=== PATIENT | male | born 1965 | race Caucasian/White ===

== ENCOUNTER 2016-07-07 16:08 | Emergency (ER) | payer MEDICAID, OTHER, SELFPAY ==
--- NOTE | 2016-07-07 16:22 | EDM.PDOC ---
ED HPI DIABETIC EMERGENCY - General Chief Complaint: Diabetic Complaint Stated Complaint: PRESSURE ON HIS HEAD Time Seen by Provider: 07/07/16 16:25 Source of Information: Reports: Patient History Limitations: Reports: No limitations - History of Present Illness INITIAL COMMENTS - FREE TEXT/NARRATIVE: History of present illness: [50-year-old male comes in with complaints of running out of his insulin and verbalizing more concern is his complaint of headache he indicates is June and at some time] Review of systems: As per history of present illness and below otherwise all systems reviewed and negative. Past medical history: As per history of present illness and as reviewed below otherwise noncontributory. Surgical history: As per history of present illness and as reviewed below otherwise noncontributory. Social history: No reported history of drug or alcohol abuse. Family history: As per history of present illness and as reviewed below otherwise noncontributory. Physical exam: HEENT: Atraumatic, normocephalic, pupils reactive, negative for conjunctival pallor or scleral icterus, mucous membranes moist, throat clear, neck supple, nontender, trachea midline. Lungs: Clear to auscultation, breath sounds equal bilaterally, chest nontender. Heart: S1S2, regular, negative for clicks, rubs, or JVD. Abdomen: Soft, nondistended, nontender. Negative for masses or hepatosplenomegaly. Negative for costovertebral tenderness. Pelvis: Stable nontender. Genitourinary: Deferred. Rectal: Deferred. Extremities: Atraumatic, negative for cords or calf pain. Neurovascular unremarkable. Neuro: Awake, alert, oriented. Cranial nerves II through XII unremarkable. Cerebellum unremarkable. Motor and sensory unremarkable throughout. Exam nonfocal. Global assessment is benign save subjective complaint of headache. Blood sugars 225 per lab. Pt. has an ambiguous history of dosing of insulin he takes, he is unable to give us an # that we can treat without knowing that he' ll be eating later. Patient can get insulin in the morning by his PCP and has been instructed to do so. He indicates he does have his long-acting insulin he can take to keep his blood sugar out of dangerous levels. Furthermore patient was instructed on need to followup with neurologist and primary care for better management of chronic pain. Diagnostics: [CBC, CMP] Therapeutics: [Ativan, Toradol, morphine, Zofran] Impression: [Headache, hyperglycemia] Plan: [Rx for headache followup with PCP tomorrow] Definitive disposition and diagnosis as appropriate pending reevaluation and review of above. - Related Data Allergies/ADRs: Allergies Allergy/AdvReac Type Severity Reaction Status Date / Time No Known Allergies Allergy Verified 07/07/16 16:13 Home Meds: Home Meds Diclofenac Sodium [Voltaren] 75 mg PO BIDM 06/14/13 [History] Carisoprodol [Soma] 250 mg PO TID 09/06/13 [History] Gabapentin [Neurontin] 300 mg PO TID 09/06/13 [History] Insulin Npl/Insulin Lispro [HumaLOG Mix 75-25 Vial] 07/07/16 [History] Past Medical History - Past Health History Medical/Surgical History: Denies Medical/Surgical History HEENT History: Reports: None Respiratory History: Reports: Asthma Gastrointestinal History: Reports: None Genitourinary History: Reports: None Musculoskeletal History: Reports: Back pain, chronic Neurological History: Reports: Neuropathy, diabetic Psychiatric History: Reports: Depression Endocrine/Metabolic History: Reports: Diabetes, type I Hematologic History: Reports: None Immunologic History: Reports: None Oncologic (Cancer) History: Reports: None Dermatologic History: Reports: None - Infectious Disease History Infectious Disease History: Reports: Chicken pox - Past Surgical History Head Surgeries/Procedures: Reports: None GI Surgical History: Reports: Cholecystectomy Social & Family History - Family History Family Medical History: Noncontributory - Tobacco Use Smoking Status *Q: Never Smoker Second Hand Smoke Exposure: No - Caffeine Use Caffeine Use: Reports: Soda - Alcohol Use Days Per Week of Alcohol Use: 0 - Recreational Drug Use Recreational Drug Use: No ED ROS GENERAL - Review of Systems Review Of Systems: See Below (See history of present illness) ED EXAM GENERAL NO PERIP PULSE - Physical Exam Exam: See Below (History of present illness) Course - Vital Signs Last Recorded V/S: Last Vital Signs Temp 36.5 C 07/07/16 16:15 Pulse 83 07/07/16 17:55 Resp 20 07/07/16 17:55 BP 86/53 L 07/07/16 17:55 Pulse Ox 96 07/07/16 17:55 - Orders/Labs/Meds Labs: Laboratory Tests 07/07/16 07/07/16 Range/Units 16:29 16:29 WBC 5.61 (4.0-11.0) K/uL RBC 4.89 (4.50-5.90) M/uL Hgb 15.7 (13.0-17.0) g/dL Hct 43.6 (38.0-50.0) % MCV 89.2 (80.0-98.0) fL MCH 32.1 H (27.0-32.0) pg MCHC 36.0 (31.0-37.0) g/dL RDW Std Deviation 40.1 (28.0-62.0) fl RDW Coeff of Charles 13 (11.0-15.0) % Plt Count 207 (150-400) K/uL MPV 10.40 (7.40-12.00) fL Neut % (Auto) 64.9 (48.0-80.0) % Lymph % (Auto) 25.1 (16.0-40.0) % [place] % (Auto) 8.6 (0.0-15.0) % Eos % (Auto) 0.9 (0.0-7.0) % Baso % (Auto) 0.5 (0.0-1.5) % Neut # (Auto) 3.6 (1.4-5.7) K/uL Lymph # (Auto) 1.4 (0.6-2.4) K/uL [place] # (Auto) 0.5 (0.0-0.8) K/uL Eos # (Auto) 0.1 (0.0-0.7) K/uL Baso # (Auto) 0.0 (0.0-0.1) K/uL Nucleated RBC % 0.0 /100WBC Nucleated RBCs # 0 K/uL Sodium 142 (136-146) mmol/L Potassium 3.7 (3.5-5.1) mmol/L Chloride 107 (98-110) mmol/L Carbon Dioxide 24 (21-31) mmol/L BUN 13 (6.0-23.0) mg/dL Creatinine 1.0 (0.6-1.5) mg/dL Est Cr Clr Drug Dosing 101.65 mL/min Estimated GFR (MDRD) > 60.0 ml/min Glucose 225 H (60-110) mg/dL Calcium 9.0 (8.8-10.8) mg/dL Total Bilirubin 1.9 H (0.1-1.5) mg/dL AST 21 (5-40) IU/L ALT 21 (8-54) IU/L Alkaline Phosphatase 69 (40-150) Total Protein 6.4 (6.0-8.0) g/dL Albumin 4.1 (3.5-5.0) g/dL Globulin 2.3 (2.0-3.5) g/dL Albumin/Globulin Ratio 1.8 (1.3-2.8) Meds: Medications Discontinued Medications Generic Name Dose Route Start Last Admin Trade Name Freq PRN Reason Stop Dose Admin Sodium Chloride 1,000 mls @ 999 mls/hr 07/07/16 16:23 07/07/16 16:34 Normal Saline IV 07/07/16 17:23 999 mls/hr STAT ONE Administration Ketorolac Tromethamine 30 mg 07/07/16 16:23 07/07/16 16:35 Toradol IVPUSH 07/07/16 16:24 30 mg ONETIME ONE Administration Lorazepam 1 mg 07/07/16 18:39 07/07/16 18:47 Ativan IVPUSH 07/07/16 18:40 2 mg ONETIME ONE Administration Morphine Sulfate 2 mg 07/07/16 18:39 07/07/16 18:49 Morphine IVPUSH 07/07/16 18:40 2 mg ONETIME ONE Administration Ondansetron HCl 8 mg 07/07/16 16:23 07/07/16 16:35 Zofran IVPUSH 07/07/16 16:24 8 mg ONETIME ONE Administration Ondansetron HCl 8 mg 07/07/16 18:39 07/07/16 18:47 Zofran IVPUSH 07/07/16 18:40 8 mg ONETIME ONE Administration Departure - Departure Time of Disposition: 19:09 Disposition: Home, Self-Care 01 Condition: good Clinical Impression: Headache Qualifiers: Headache type: new daily persistent Qualified Code(s): G44.52 - New daily persistent headache (NDPH) Forms: ED Department Discharge Additional Instructions: The following information is given to patients seen in the emergency department who are being discharged to home. This information is to outline your options for follow-up care. We provide all patients seen in our emergency department with a follow-up referral. The need for follow-up, as well as the timing and circumstances, are variable depending upon the specifics of your emergency department visit. If you don't have a primary care physician on staff, we will provide you with a referral. We always advise you to contact your personal physician following an emergency department visit to inform them of the circumstance of the visit and for follow-up with them and/or the need for any referrals to a consulting specialist. The emergency department will also refer you to a specialist when appropriate. This referral assures that you have the opportunity for follow-up care with a specialist. All of these measure are taken in an effort to provide you with optimal care, which includes your follow-up. Under all circumstances we always encourage you to contact your private physician who remains a resource for coordinating your care. When calling for follow-up care, please make the office aware that this follow-up is from your recent emergency room visit. If for any reason you are refused follow-up, please contact the [facility] Emergency Department at and asked to speak to the emergency department charge nurse. You have been given some medication for pain for your headache through the [employer] meds machine Please up tomorrow with your PCP and the pharmacy to get refills for insulin and have your dosage addressed with him so that you don't continuously run out Please followup with your neurologist as was her PCP for better pain management of your chronic headaches It might be to your benefit to be evaluated for migraines Return to ED as needed as discussed
[2016-07-07] MEDS ORDERED: Ketorolac 30 MG/ML SDV IVPUSH ONE (16:23)
[2016-07-07] MEDS ORDERED: Ondansetron 4 MG/2 ML SDV IVPUSH ONE ×2 (16:23→18:39)
[2016-07-07] MEDS ORDERED: Sodium Chloride 0.9% 1,000 ML IV ONE (16:23)
[2016-07-07 16:58] LABS: CHLORIDE,CL 107 mmol/L (98-110); SODIUM,NA 142 mmol/L (136-146)
[2016-07-07] MEDS ORDERED: Morphine 2 MG/ML Syringe IVPUSH ONE (18:39)
[2016-07-07] MEDS ORDERED: LORazepam 2 MG/ML MDV IVPUSH ONE (18:39)
[2016-07-07 20:05] VITALS: BP 95/57
== END 2016-07-07 19:38 | disposition home or self-care (01) ==
LOC: MW.ED 16:08
DX: G44.52 New daily persistent headache (NDPH) (principal); E10.65 Type 1 diabetes mellitus with hyperglycemia; J45.909 Unspecified asthma, uncomplicated; F32.9 Major depressive disorder, single episode, unspecified; E10.40 Type 1 diabetes mellitus with diabetic neuropathy, unspecified; Z90.49 Acquired absence of other specified parts of digestive tract; Z79.4 Long term (current) use of insulin; Z79.899 Other long term (current) drug therapy
CPT/HCPCS: 36415; 80053; 85025; 96361; 96374; 96375; 96376; 99284; J1885; J2060; J2270; J2405; J7040; 99283

== ENCOUNTER 2016-07-08 12:47 | Emergency (ER) | payer MEDICAID, OTHER ==
[2016-07-08] MEDS ORDERED: Sodium Chloride 0.9% 1,000 ML IV ONE (12:54)
[2016-07-08] MEDS ORDERED: Insulin Regular, Human 100 Units/ML 10 ML Vial IVPUSH ONE ×2 (13:06→13:44)
--- NOTE | 2016-07-08 13:24 | EDM.PDOC ---
ED HPI DIABETIC EMERGENCY - General Chief Complaint: Diabetic Complaint Stated Complaint: DIABETIC SHOCK Time Seen by Provider: 07/08/16 13:18 Source of Information: Reports: Patient, Significant Other. Denies: Family History Limitations: Reports: No limitations - History of Present Illness INITIAL COMMENTS - FREE TEXT/NARRATIVE: History of present illness: [50-year-old male returns to ER this morning after being seen last night. Patient told significant other that he was having I diabetic crisis patient's blood sugar went discharge last night was 225 per lab and patient agreed to hematology supervisor the new bottle of insulin this morning now patient is indicating that he was too ill this morning to go hematology supervisor any insulin. Patient indicates he just has the headache like last night and would like more pain medicine.] Review of systems: As per history of present illness and below otherwise all systems reviewed and negative. Past medical history: As per history of present illness and as reviewed below otherwise noncontributory. Surgical history: As per history of present illness and as reviewed below otherwise noncontributory. Social history: No reported history of drug or alcohol abuse. Family history: As per history of present illness and as reviewed below otherwise noncontributory. Physical exam: HEENT: Atraumatic, normocephalic, pupils reactive, negative for conjunctival pallor or scleral icterus, mucous membranes moist, throat clear, neck supple, nontender, trachea midline. Lungs: Clear to auscultation, breath sounds equal bilaterally, chest nontender. Heart: S1S2, regular, negative for clicks, rubs, or JVD. Abdomen: Soft, nondistended, nontender. Negative for masses or hepatosplenomegaly. Negative for costovertebral tenderness. Pelvis: Stable nontender. Genitourinary: Deferred. Rectal: Deferred. Extremities: Atraumatic, negative for cords or calf pain. Neurovascular unremarkable. Neuro: Awake, alert, oriented. Cranial nerves II through XII unremarkable. Cerebellum unremarkable. Motor and sensory unremarkable throughout. Exam nonfocal. Patient's global assessment is benign save as noted in the history of present illness. Fingerstick shows blood sugar at mid 400 range with IV insulin ordered , subsequent lab showed blood sugar to be in the 600 range with another 10 units of IV insulin ordered. Diagnostics: [CBC, CMP, hemoglobin A1c, EtOH, drug screen, EKG,] Therapeutics: [IV 10 units of insulin IV push] Impression: [NSTEMI] Plan: [Transfer] Definitive disposition and diagnosis as appropriate pending reevaluation and review of above. - Related Data Allergies/ADRs: Allergies Allergy/AdvReac Type Severity Reaction Status Date / Time No Known Allergies Allergy Verified 07/07/16 16:13 Home Meds: Home Meds Diclofenac Sodium [Voltaren] 75 mg PO BIDM 06/14/13 [History] Carisoprodol [Soma] 250 mg PO TID 09/06/13 [History] Gabapentin [Neurontin] 300 mg PO TID 09/06/13 [History] Insulin Npl/Insulin Lispro [HumaLOG Mix 75-25 Vial] 07/07/16 [History] Past Medical History - Past Health History Medical/Surgical History: Denies Medical/Surgical History HEENT History: Reports: None Respiratory History: Reports: Asthma Gastrointestinal History: Reports: None Genitourinary History: Reports: None Musculoskeletal History: Reports: Back pain, chronic Neurological History: Reports: Neuropathy, diabetic Psychiatric History: Reports: Depression Endocrine/Metabolic History: Reports: Diabetes, type I Hematologic History: Reports: None Immunologic History: Reports: None Oncologic (Cancer) History: Reports: None Dermatologic History: Reports: None - Infectious Disease History Infectious Disease History: Reports: Chicken pox - Past Surgical History Head Surgeries/Procedures: Reports: None GI Surgical History: Reports: Cholecystectomy Social & Family History - Family History Family Medical History: Noncontributory - Tobacco Use Smoking Status *Q: Never Smoker Second Hand Smoke Exposure: No - Caffeine Use Caffeine Use: Reports: Soda - Alcohol Use Days Per Week of Alcohol Use: 0 - Recreational Drug Use Recreational Drug Use: No ED ROS GENERAL - Review of Systems Review Of Systems: See Below (See history of present illness) ED EXAM GENERAL NO PERIP PULSE - Physical Exam Exam: See Below (See history of present illness) Course - Vital Signs Last Recorded V/S: Last Vital Signs Temp 36.6 C 07/08/16 12:52 Pulse 111 H 07/08/16 12:52 Resp 18 07/08/16 12:52 BP 126/77 07/08/16 12:52 Pulse Ox 98 07/08/16 12:52 - Orders/Labs/Meds Orders: Active Orders 24 hr Category Date Time Status EKG 12 Lead [EKG Documentation Completion] [RC] STAT Care 07/08/16 13:01 Active DRUG SCREEN, URINE [URCHEM] Stat Lab 07/08/16 12:53 Ordered FREE T3 [REF] Stat Lab 07/08/16 13:00 Received GLYCOSYLATED HEMOGLOBIN,HGBA1C [CHEM] Stat Lab 07/08/16 13:00 Received UA W/MICROSCOPIC [URIN] Stat Lab 07/08/16 12:53 Ordered Sodium Chloride 0.9% [Normal Saline] 1,000 ml Med 07/08/16 12:54 Active IV STAT Medication Orders Sodium Chloride (Normal Saline) 1,000 mls @ 999 mls/hr IV STAT ONE Stop: 07/08/16 13:54 Last Admin: 07/08/16 12:58 Dose: 999 mls/hr Labs: Laboratory Tests 07/08/16 07/08/16 07/08/16 Range/Units 13:00 13:00 13:00 WBC 7.43 (4.0-11.0) K/uL RBC 5.10 (4.50-5.90) M/uL Hgb 16.1 (13.0-17.0) g/dL Hct 46.5 (38.0-50.0) % MCV 91.2 (80.0-98.0) fL MCH 31.6 (27.0-32.0) pg MCHC 34.6 (31.0-37.0) g/dL RDW Std Deviation 41.2 (28.0-62.0) fl RDW Coeff of Charles 12 (11.0-15.0) % Plt Count 209 (150-400) K/uL MPV 10.60 (7.40-12.00) fL Neut % (Auto) 77.8 (48.0-80.0) % Lymph % (Auto) 15.9 L (16.0-40.0) % [place] % (Auto) 5.8 (0.0-15.0) % Eos % (Auto) 0.1 (0.0-7.0) % Baso % (Auto) 0.4 (0.0-1.5) % Neut # (Auto) 5.8 H (1.4-5.7) K/uL Lymph # (Auto) 1.2 (0.6-2.4) K/uL [place] # (Auto) 0.4 (0.0-0.8) K/uL Eos # (Auto) 0.0 (0.0-0.7) K/uL Baso # (Auto) 0.0 (0.0-0.1) K/uL Nucleated RBC % 0.0 /100WBC Nucleated RBCs # 0 K/uL Sodium 135 L (136-146) mmol/L Potassium 5.0 (3.5-5.1) mmol/L Chloride 101 (98-110) mmol/L Carbon Dioxide 10 L (21-31) mmol/L BUN 25 H (6.0-23.0) mg/dL Creatinine 1.7 H (0.6-1.5) mg/dL Est Cr Clr Drug Dosing TNP Estimated GFR (MDRD) 42.7 ml/min Glucose 629 H* (60-110) mg/dL Calcium 9.1 (8.8-10.8) mg/dL Total Bilirubin 1.6 H (0.1-1.5) mg/dL AST 48 H (5-40) IU/L ALT 58 H (8-54) IU/L Alkaline Phosphatase 113 (40-150) Troponin I 0.57 H* (0.0-0.29) NG/ML Total Protein 7.0 (6.0-8.0) g/dL Albumin 4.3 (3.5-5.0) g/dL Globulin 2.7 (2.0-3.5) g/dL Albumin/Globulin Ratio 1.6 (1.3-2.8) Ethyl Alcohol < 10.0 mg/dL Meds: Medications Generic Name Dose Route Start Last Admin Trade Name Astrid PRN Reason Stop Dose Admin Sodium Chloride 1,000 mls @ 999 mls/hr 07/08/16 12:54 07/08/16 12:58 Normal Saline IV 07/08/16 13:54 999 mls/hr STAT ONE Administration Discontinued Medications Generic Name Dose Route Start Last Admin Trade Name Freq PRN Reason Stop Dose Admin Aspirin 324 mg 07/08/16 13:43 Aspirin PO 07/08/16 13:44 ONETIME ONE Insulin Human Regular 10 unit 07/08/16 13:06 07/08/16 13:30 Novolin R IVPUSH 07/08/16 13:07 10 units ONETIME ONE Administration Protocol Insulin Human Regular 10 unit 07/08/16 13:44 Novolin R IVPUSH 07/08/16 13:45 ONETIME ONE Morphine Sulfate 2 mg 07/08/16 13:39 Morphine IVPUSH 07/08/16 13:40 ONETIME ONE Nitroglycerin 1 gm 07/08/16 13:41 Nitro-Bid 2% TOP 07/08/16 13:42 ONETIME ONE Ondansetron HCl 8 mg 07/08/16 13:39 Zofran IVPUSH 07/08/16 13:40 ONETIME ONE Departure - Departure Time of Disposition: 13:51 Disposition: DC/Tfer to Acute Hospital 02 Condition: good Clinical Impression: NSTEMI, initial episode of care Forms: ED Department Discharge - My Orders Last 24 Hours: My Active Orders 07/08/16 12:53 DRUG SCREEN, URINE [URCHEM] Stat UA W/MICROSCOPIC [URIN] Stat 07/08/16 12:54 Sodium Chloride 0.9% [Normal Saline] 1,000 ml IV STAT 07/08/16 13:00 FREE T3 [REF] Stat GLYCOSYLATED HEMOGLOBIN,HGBA1C [CHEM] Stat 07/08/16 13:01 EKG 12 Lead [EKG Documentation Completion] [RC] STAT - Assessment/Plan Last 24 Hours: My Active Orders 07/08/16 12:53 DRUG SCREEN, URINE [URCHEM] Stat UA W/MICROSCOPIC [URIN] Stat 07/08/16 12:54 Sodium Chloride 0.9% [Normal Saline] 1,000 ml IV STAT 07/08/16 13:00 FREE T3 [REF] Stat GLYCOSYLATED HEMOGLOBIN,HGBA1C [CHEM] Stat 07/08/16 13:01 EKG 12 Lead [EKG Documentation Completion] [RC] STAT
[2016-07-08 13:32] LABS: CHLORIDE,CL 101 mmol/L (98-110); SODIUM,NA 135 mmol/L (136-146)
[2016-07-08] MEDS ORDERED: Morphine 2 MG/ML Syringe IVPUSH ONE (13:39)
[2016-07-08] MEDS ORDERED: Ondansetron 4 MG/2 ML SDV IVPUSH ONE (13:39)
[2016-07-08] MEDS ORDERED: Nitroglycerin 2% Oint 1 GM UD Packet TOP ONE (13:41)
[2016-07-08] MEDS ORDERED: Aspirin 81 MG Tab.Chew PO ONE (13:43)
[2016-07-08] MEDS ORDERED: Acetaminophen 500 MG Tab PO ONE (15:11)
[2016-07-08 19:11] VITALS: BP 114/59
== END 2016-07-08 15:21 ==
LOC: MW.ED 12:47
DX: I21.4 Non-ST elevation (NSTEMI) myocardial infarction (principal); J45.909 Unspecified asthma, uncomplicated; F32.9 Major depressive disorder, single episode, unspecified; E10.40 Type 1 diabetes mellitus with diabetic neuropathy, unspecified; Z79.4 Long term (current) use of insulin; Z90.49 Acquired absence of other specified parts of digestive tract; Z79.899 Other long term (current) drug therapy
CPT/HCPCS: 36415; 80053; 80305; 81001; 82962; 83036; 84481; 84484; 85025; 93005; 96361; 96374; 96375; 99285; A9270; G0480; J2270; J2405; J7040; 99284; J1815-GY

== ENCOUNTER 2016-07-14 17:40 | Observation (INO) | payer MEDICAID, OTHER ==
[2016-07-14] MEDS: Nitroglycerin 0.4 MG Tab.SL SL PRN ×3 (17:40→17:50)
[2016-07-14] MEDS ORDERED: Sodium Chloride 0.9% 10 ML Syringe FLUSH PRN (17:41)
[2016-07-14] MEDS ORDERED: Sodium Chloride 0.9% 2.5 ML Syringe FLUSH PRN (17:41)
--- NOTE | 2016-07-14 17:50 | EDM.PDOC ---
ED HPI GENERAL MEDICAL PROBLEM - General Chief Complaint: Chest Pain Stated Complaint: PT HAS CHEST PAINS Time Seen by Provider: 07/14/16 17:40 - History of Present Illness INITIAL COMMENTS - FREE TEXT/NARRATIVE: HISTORY AND PHYSICAL: History of present illness: Patient is a 50-year-old male with a history of diabetes who presents with left- sided chest pain that has been on-and-off all day and became more intense and constant about one hour prior to ER presentation. The patient has a significant past medical history of coming to the ER in July 07 for running out of his insulin and high glucose and then returning the following day on July 08 for elevated blood sugar of 629. On that presentation he had some chest discomfort but it was not severe and it was noted that he had a positive troponin of 0.57 and a left bundle branch block.. On that visit he was transferred to [facility] as a non-STEMI AR. According to the patient he did undergo heart catheter which showed a 50-60% blockage of one of the vessels but they did not do angioplasty or stents. The patient states he had some bleeding complication to the right groin after the catheter but otherwise has been doing well since that visit. He states he had a number of his medications changed and some new with added since that visit to [place]. Patient said he had a normal day yesterday and slept fine and woke up this morning and didn't have the chest pain but then started having it on and off throughout the day with each episode lasting only a few minutes and then going away. The patient does not have sublingual nitroglycerin to use at home. The patient states that he was just sitting resting when the pain become more intense and it is localized to the left side of the chest without radiation but he does have shortness of breath and increased pain with deep breaths. He has had no recent pulmonary issues fevers chills and he has no abdominal complaints nausea or vomiting. Patient denies any radiation of the pain and on my evaluation initially he rated the pain as a 10 over 10. He states he has a history of a left bundle branch block. Patient took no medications prior to coming here for the pain only to his regular medication today which included a 325 mg aspirin that he took this morning. He follows with Dr. Diez at [facility] Review of systems: As per history of present illness and below otherwise all systems reviewed and negative. Past medical history: As per history of present illness and as reviewed below otherwise noncontributory. Surgical history: As per history of present illness and as reviewed below otherwise noncontributory. Social history: No reported history of drug or alcohol abuse. Family history: As per history of present illness and as reviewed below otherwise noncontributory. Physical exam: General: Well-developed well-nourished man who is nontoxic and looks distressed and anxious in the room. Vital signs been noted by me. He is diaphoretic. HEENT: Atraumatic, normocephalic, pupils reactive, negative for conjunctival pallor or scleral icterus, mucous membranes moist, throat clear, neck supple, nontender, trachea midline. Lungs: Clear to auscultation, breath sounds equal bilaterally, chest nontender. Heart: S1S2, regular, negative for clicks, rubs, or JVD. Abdomen: Soft, nondistended, nontender. Negative for masses or hepatosplenomegaly. Negative for costovertebral tenderness. Pelvis: Stable nontender. Genitourinary: Deferred. Rectal: Deferred. Extremities: Atraumatic, negative for cords or calf pain. Neurovascular unremarkable. No pedal edema or leg asymmetry Neuro: Awake, alert, oriented. Cranial nerves II through XII unremarkable. Cerebellum unremarkable. Motor and sensory unremarkable throughout. Exam nonfocal. Skin: There are no overt rashes or lesions seen and turgor is normal. The patient is diaphoretic Diagnostics: EKG, comparison EKG from July 08 was pulled from the medical record and reveals no significant changes comparing today's with that one except a new ST sag and T-wave inversion in lead V5 CBC CMP INR troponin chest x-ray Therapeutics: IV O2 monitor sublingual nitroglycerin Patient took 325 mg of aspirin this morning so I will not repeat 1822: Patient was pain-free after 3 sublingual nitros and is less anxious. Blood pressure is normalized. Troponin is negative. I contacted our hospitalist Dr. Spaulding who is accepted the patient for admission here and I discussed testing results and care plan with the patient as well. He is comfortable with admission here. Impression: Chest pain rule out ACS Definitive disposition and diagnosis as appropriate pending reevaluation and review of above. chest left side Pain Score (Numeric/FACES): 10 Midsternal Chest Pain Score (Numeric/FACES): 1 - Related Data Allergies Allergy/AdvReac Type Severity Reaction Status Date / Time No Known Allergies Allergy Verified 07/14/16 17:47 Home Meds: Home Meds Diclofenac Sodium [Voltaren] 75 mg PO BIDM 06/14/13 [History] Carisoprodol [Soma] 250 mg PO TID 09/06/13 [History] Gabapentin [Neurontin] 300 mg PO TID 09/06/13 [History] Insulin Npl/Insulin Lispro [HumaLOG Mix 75-25 Vial] 07/07/16 [History] Past Medical History - Past Health History Medical/Surgical History: Denies Medical/Surgical History HEENT History: Reports: None Respiratory History: Reports: Asthma Gastrointestinal History: Reports: None Genitourinary History: Reports: None Musculoskeletal History: Reports: Back pain, chronic Neurological History: Reports: Neuropathy, diabetic Psychiatric History: Reports: Depression Endocrine/Metabolic History: Reports: Diabetes, type I Hematologic History: Reports: None Immunologic History: Reports: None Oncologic (Cancer) History: Reports: None Dermatologic History: Reports: None - Infectious Disease History Infectious Disease History: Reports: Chicken pox - Past Surgical History Head Surgeries/Procedures: Reports: None GI Surgical History: Reports: Cholecystectomy Social & Family History - Family History Family Medical History: Noncontributory - Tobacco Use Smoking Status *Q: Never Smoker Second Hand Smoke Exposure: No - Caffeine Use Caffeine Use: Reports: Soda - Alcohol Use Days Per Week of Alcohol Use: 0 - Recreational Drug Use Recreational Drug Use: No ED ROS GENERAL - Review of Systems Review Of Systems: ROS reveals no pertinent complaints other than HPI. ED EXAM, GENERAL - Physical Exam Exam: See Below (see dictation) Course - Vital Signs Last Recorded V/S: Last Vital Signs Temp 36.7 C 07/14/16 17:40 Pulse 84 07/14/16 17:48 Resp 16 07/14/16 17:48 BP 130/80 07/14/16 17:50 Pulse Ox 97 07/14/16 17:48 - Orders/Labs/Meds Orders: Active Orders 24 hr Category Date Time Status Patient Status [ADT] Stat ADT 07/14/16 18:21 Ordered Cardiac Monitoring [RC] . DIRECTED Care 07/14/16 17:41 Active EKG Documentation Completion [RC] STAT Care 07/14/16 17:41 Active Oxygen Therapy, ED [RC] ASDIRECTED Care 07/14/16 17:41 Active Pulse Oximetry [RC] ASDIRECTED Care 07/14/16 17:41 Active Chest 1V Frontal [CR] Stat Exams 07/14/16 17:41 Taken COMPREHENSIVE METABOLIC PN,CMP [CHEM] Stat Lab 07/14/16 17:40 Received Sodium Chloride 0.9% [Normal Saline] 1,000 ml Med 07/14/16 18:00 Active IV ASDIRECTED Sodium Chloride 0.9% [Saline Flush] Med 07/14/16 17:41 Active 10 ml FLUSH ASDIRECTED PRN Sodium Chloride 0.9% [Saline Flush] Med 07/14/16 17:41 Active 2.5 ml FLUSH ASDIRECTED PRN Saline Lock Insert [OM.PC] Stat Oth 07/14/16 17:41 Ordered Medication Orders Sodium Chloride (Normal Saline) 1,000 mls @ 100 mls/hr IV ASDIRECTED ESTEPH[place]IA Last Admin: 07/14/16 17:50 Dose: 100 mls/hr Sodium Chloride (Saline Flush) 10 ml FLUSH ASDIRECTED PRN PRN Reason: Keep Vein Open Last Admin: 07/14/16 17:47 Dose: 10 ml Sodium Chloride (Saline Flush) 2.5 ml FLUSH ASDIRECTED PRN PRN Reason: Keep Vein Open Last Admin: 07/14/16 17:47 Dose: 2.5 ml Labs: Laboratory Tests 07/14/16 07/14/16 07/14/16 Range/Units 17:40 17:40 17:40 WBC 5.84 (4.0-11.0) K/uL RBC 5.06 (4.50-5.90) M/uL Hgb 16.2 (13.0-17.0) g/dL Hct 45.5 (38.0-50.0) % MCV 89.9 (80.0-98.0) fL MCH 32.0 (27.0-32.0) pg MCHC 35.6 (31.0-37.0) g/dL RDW Std Deviation 41.7 (28.0-62.0) fl RDW Coeff of Charles 13 (11.0-15.0) % Plt Count 237 (150-400) K/uL MPV 10.30 (7.40-12.00) fL Neut % (Auto) 57.2 (48.0-80.0) % Lymph % (Auto) 32.2 (16.0-40.0) % [place] % (Auto) 8.2 (0.0-15.0) % Eos % (Auto) 2.1 (0.0-7.0) % Baso % (Auto) 0.3 (0.0-1.5) % Neut # (Auto) 3.3 (1.4-5.7) K/uL Lymph # (Auto) 1.9 (0.6-2.4) K/uL Bos[place] # (Auto) 0.5 (0.0-0.8) K/uL Eos # (Auto) 0.1 (0.0-0.7) K/uL Baso # (Auto) 0.0 (0.0-0.1) K/uL Nucleated RBC % 0.0 /100WBC Nucleated RBCs # 0 K/uL INR 0.98 (0.86-1.11) Troponin I < 0.10 (0.0-0.29) NG/ML Meds: Medications Generic Name Dose Route Start Last Admin Trade Name Freq PRN Reason Stop Dose Admin Sodium Chloride 1,000 mls @ 100 mls/hr 07/14/16 18:00 07/14/16 17:50 Normal Saline IV 100 mls/hr ASDIRECTED ESTEPHANIA Administration Sodium Chloride 10 ml 07/14/16 17:41 07/14/16 17:47 Saline Flush FLUSH 10 ml ASDIRECTED PRN Administration Keep Vein Open Sodium Chloride 2.5 ml 07/14/16 17:41 07/14/16 17:47 Saline Flush FLUSH 2.5 ml ASDIRECTED PRN Administration Keep Vein Open Discontinued Medications Generic Name Dose Route Start Last Admin Trade Name Freq PRN Reason Stop Dose Admin Nitroglycerin 0.4 mg 07/14/16 17:46 07/14/16 17:50 Nitrostat SL 07/14/16 17:57 0.4 mg Q5M PRN Administration Chest Pain Nitroglycerin 1 gm 07/14/16 17:54 07/14/16 18:02 Nitro-Bid 2% TOP 07/14/16 17:55 1 gm ONETIME ONE Administration Departure - Departure Time of Disposition: 18:25 Disposition: Refer to Observation Condition: good Clinical Impression: Acute coronary syndrome Forms: ED Department Discharge - My Orders Last 24 Hours: My Active Orders 07/14/16 17:40 COMPREHENSIVE METABOLIC PN,CMP [CHEM] Stat 07/14/16 17:41 Cardiac Monitoring [RC] . DIRECTED EKG Documentation Completion [RC] STAT Oxygen Therapy, ED [RC] ASDIRECTED Pulse Oximetry [RC] ASDIRECTED Chest 1V Frontal [CR] Stat Sodium Chloride 0.9% [Saline Flush] 10 ml FLUSH ASDIRECTED PRN Sodium Chloride 0.9% [Saline Flush] 2.5 ml FLUSH ASDIRECTED PRN Saline Lock Insert [OM.PC] Stat 07/14/16 18:00 Sodium Chloride 0.9% [Normal Saline] 1,000 ml IV ASDIRECTED 07/14/16 18:21 Patient Status [ADT] Stat - Assessment/Plan Last 24 Hours: My Active Orders 07/14/16 17:40 COMPREHENSIVE METABOLIC PN,CMP [CHEM] Stat 07/14/16 17:41 Cardiac Monitoring [RC] . DIRECTED EKG Documentation Completion [RC] STAT Oxygen Therapy, ED [RC] ASDIRECTED Pulse Oximetry [RC] ASDIRECTED Chest 1V Frontal [CR] Stat Sodium Chloride 0.9% [Saline Flush] 10 ml FLUSH ASDIRECTED PRN Sodium Chloride 0.9% [Saline Flush] 2.5 ml FLUSH ASDIRECTED PRN Saline Lock Insert [OM.PC] Stat 07/14/16 18:00 Sodium Chloride 0.9% [Normal Saline] 1,000 ml IV ASDIRECTED 07/14/16 18:21 Patient Status [ADT] Stat
[2016-07-14] MEDS ORDERED: Nitroglycerin 2% Oint 1 GM UD Packet TOP ONE (17:54)
[2016-07-14] MEDS ORDERED: Sodium Chloride 0.9% 1,000 ML IV SCH (18:00)
[2016-07-14 18:25] LABS: CHLORIDE,CL 107 mmol/L (98-110); SODIUM,NA 142 mmol/L (136-146)
[2016-07-14] MEDS ORDERED: Morphine 2 MG/ML Syringe IVPUSH PRN (20:06)
[2016-07-14] MEDS ORDERED: Acetaminophen/oxyCODONE 325-10 MG Tab PO PRN (21:34)
[2016-07-14] MEDS ORDERED: Diclofenac Sodium 75 MG Tab.EC PO SCH (21:45)
[2016-07-14] MEDS ORDERED: Insulin Glargine,Human Rec. Analog 100 Units/ML 3 ML Pen SUBCUT SCH (22:00)
[2016-07-14] MEDS: Gabapentin 300 MG Cap PO SCH (22:54)
--- NOTE | 2016-07-14 23:25 | PCM.HP ---
H&P History of Present Illness - General Admit Problem/Dx: Admission Diagnosis/Problem Admission Diagnosis/Problem Acute coronary syndrome - History of Present Illness Initial Comments - Free Text/Narative: 50 yo male with pmh of DM who last week was hospitalized in [place] for NSTEMI. He had cardiac cath and reported had 50% blockage in one vessel but had no stents placed. He was discharged on three new medications but cannot recall what they are. He has been having constant chest pain for the past week. It worsened this afternoon with associated symptoms of shortness of breath. He was seen in the ED, intial troponin was negative and EKG showed left bundle brach block which seen on prior EKG. Nitro past improved his chest pain. chest left side Pain Score (Numeric/FACES): 10 Midsternal Chest Pain Score (Numeric/FACES): 2 - Related Data Allergies/Adverse Reactions: Allergies Allergy/AdvReac Type Severity Reaction Status Date / Time No Known Allergies Allergy Verified 07/14/16 17:47 Home Medications: Home Meds Diclofenac Sodium [Voltaren] 75 mg PO BIDM 06/14/13 [History] Gabapentin [Neurontin] 300 mg PO TID 09/06/13 [History] Insulin Npl/Insulin Lispro [HumaLOG Mix 75-25 Vial] 0 units SQ TIDAC 07/07/16 [ History] Insulin Glarg,Human.Rec.Analog [Lantus] 30 units SQ BEDTIME 07/14/16 [History] oxyCODONE HCl/Acetaminophen [Percocet 10-325 mg Tablet] 10 - 325 mg PO QID PRN 07/14/16 [History] Aspirin [Ecotrin] 325 mg PO DAILY 07/15/16 [History] Carvedilol [Coreg] 6.25 mg PO BIDMEALS 07/15/16 [History] DULoxetine [Cymbalta] 90 mg PO BEDTIME 07/15/16 [History] Losartan [Cozaar] 25 mg PO BID 07/15/16 [History] Nitroglycerin 0.4 mg SL ONETIME PRN #14 tab.subl 07/15/16 [Rx] Spironolactone [Aldactone] 12.5 mg PO BID 07/15/16 [History] Past Medical History - Past Health History Medical/Surgical History: Denies Medical/Surgical History HEENT History: Reports: None Cardiovascular History: Reports: [place] Respiratory History: Reports: Asthma Gastrointestinal History: Reports: None Genitourinary History: Reports: None Musculoskeletal History: Reports: Back pain, chronic Neurological History: Reports: Neuropathy, diabetic Psychiatric History: Reports: Depression Endocrine/Metabolic History: Reports: Diabetes, type I Hematologic History: Reports: None Immunologic History: Reports: None Oncologic (Cancer) History: Reports: None Dermatologic History: Reports: None - Infectious Disease History Infectious Disease History: Reports: Chicken pox - Past Surgical History Head Surgeries/Procedures: Reports: None GI Surgical History: Reports: Cholecystectomy Social & Family History - Family History Family Medical History: Noncontributory - Tobacco Use Smoking Status *Q: Never Smoker Second Hand Smoke Exposure: No - Caffeine Use Caffeine Use: Reports: Soda - Alcohol Use Days Per Week of Alcohol Use: 0 - Recreational Drug Use Recreational Drug Use: No H&P Review of Systems - Review of Systems: Review Of Systems: See Below General: Reports: no symptoms HEENT: Reports: no symptoms Pulmonary: Reports: No Symptoms Cardiovascular: Reports: chest pain Gastrointestinal: Reports: No symptoms Genitourinary: Reports: no symptoms Musculoskeletal: Reports: no symptoms Skin: Reports: no symptoms Psychiatric: Reports: no symptoms Neurological: Reports: No Symptoms Hematologic/Lymphatic: Reports: no symptoms Immunologic: Reports: no symptoms Exam - Exam Exam: See Below - Vital Signs Vital Signs: Last Vital Signs Temp 36.7 C 07/14/16 17:40 Pulse 80 07/14/16 19:33 Resp 16 07/14/16 19:33 BP 116/79 07/14/16 19:33 Pulse Ox 96 07/14/16 19:33 Weight: 87 kg - Exam General: alert, oriented, 4 Lungs: Clear to auscultation, Normal respiratory effort Cardiovascular: regular rate, regular rhythm Abdomen: Normal Bowel Sounds, Soft Extremities: 3, normal inspection, 10 Skin: warm, dry, intact - Patient Data Lab Results last 24 hrs: Laboratory Results - last 24 hr 07/14/16 Range/Units 20:56 Troponin I < 0.10 (0.0-0.29) NG/ML Result Diagrams: 07/14/16 17:40 07/14/16 17:40 *Q Meaningful Use (ADM) - VTE *Q VTE Criteria *Q: - Stroke *Q Stroke Criteria *Q: - AMI *Q AMI Criteria *Q: Problem List Initiated/Reviewed/Updated: Yes Orders Last 24hrs: Active Orders 24 hr Category Date Time Status Accu Check [Blood Glucose Check, Bedside] [] TIDAC Care 07/14/16 20:06 Active EKG Documentation Completion [] AM Care 07/15/16 07:00 Active Telemetry Monitoring [Cardiac Monitoring] [] . Care 07/14/16 20:10 Active DIRECTED Heart Healthy Diet [DIET] Diet 07/14/16 Dinner Active TROPONIN I [CHEM] Routine Lab 07/15/16 04:00 Ordered Acetaminophen/oxyCODONE [Percocet 325-10 MG] Med 07/14/16 21:34 Active 1 tab PO QID PRN Gabapentin [Neurontin] Med 07/14/16 22:00 Active 300 mg PO TID Insulin Aspart [NovoLOG] Med 07/15/16 07:30 Active See Protocol SUBCUT TIDAC Insulin Glarg,Human.Rec.Analog [LantUS Solostar] Med 07/14/16 22:00 Active 30 units SUBCUT BEDTIME Morphine Med 07/14/16 20:06 Active 2 mg IVPUSH Q2H PRN Medication Orders Gabapentin (Neurontin) 300 mg PO TID [facility] Last Admin: 07/14/16 22:54 Dose: 300 mg Sodium Chloride (Normal Saline) 1,000 mls @ 100 mls/hr IV ASDIRECTED [facility] Last Admin: 07/14/16 17:50 Dose: 100 mls/hr Insulin Aspart (Novolog) 0 unit SUBCUT TIDAC [place] PRN Reason: Protocol Insulin Glargine (Lantus Solostar) 30 units SUBCUT BEDTIME [facility] Last Admin: 07/14/16 22:53 Dose: 30 units Morphine Sulfate (Morphine) 2 mg IVPUSH Q2H PRN PRN Reason: Pain Oxycodone/Acetaminophen (Percocet 325-10 Mg) 1 tab PO QID PRN PRN Reason: Pain Sodium Chloride (Saline Flush) 10 ml FLUSH ASDIRECTED PRN PRN Reason: Keep Vein Open Last Admin: 07/14/16 17:47 Dose: 10 ml Sodium Chloride (Saline Flush) 2.5 ml FLUSH ASDIRECTED PRN PRN Reason: Keep Vein Open Last Admin: 07/14/16 17:47 Dose: 2.5 ml Assessment/Plan Comment:: 50 yo male admitted for chest pain. We will trend cardiac enzymes. He has called somebody to get his medication list.
[2016-07-15] MEDS: Gabapentin 300 MG Cap PO SCH ×2 (06:17→13:12)
[2016-07-15] MEDS: Insulin Aspart 100 Units/ML 3 ML Pen SUBCUT SCH ×2 (06:54→13:03)
--- NOTE | 2016-07-15 10:40 | PCM.DCSUM1 ---
<Robe,Jimy - Last Filed: 07/15/16 13:41> Discharge Summary - Hospital Course Free Text/Narrative:: 50 yo male with history of DM and NSTEMI 1 week ago admitted on 07/14 for acute coronary syndrome. His chest pain last occurred few hours ago but other espinoza he is doing much better. He claims the pain is different from the pain he had with the NSTEMI. His initial EKG, 2 subsequent EKG's and overnight telemetry reveal LBBB. EKG from his previous hospitalization on 07/08 als oshows LBBB. Overnight vitals were stable and serial troponins were negative. His labs were wnl except for hyperglycemia likely due to his DM. Patient sees Dr. Diez as his PCP and saw him recently and he was told his DM is controlled. 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 diaz. [facility] free, tolerating oral intake, producing urine and with stable vitals. Patient was started on Nitroglycerin 0.4 SC PRN for chest pain. - Discharge Data Discharge Date: 07/15/16 Discharge Disposition: Home, Self-Care 01 Condition: Good - Patient Instructions Diet: Heart Healthy Diet - Discharge Plan Prescriptions/Med Rec: Nitroglycerin 0.4 mg SL ONETIME PRN #14 tab.subl PRN Reason: Chest Pain Home Medications: Home Meds Diclofenac Sodium [Voltaren] 75 mg PO BIDM 06/14/13 [History] Gabapentin [Neurontin] 300 mg PO TID 09/06/13 [History] Insulin Npl/Insulin Lispro [HumaLOG Mix 75-25 Vial] 0 units SQ TIDAC 07/07/16 [ History] Insulin Glarg,Human.Rec.Analog [Lantus] 30 units SQ BEDTIME 07/14/16 [History] oxyCODONE HCl/Acetaminophen [Percocet 10-325 mg Tablet] 10 - 325 mg PO QID PRN 07/14/16 [History] Aspirin [Ecotrin] 325 mg PO DAILY 07/15/16 [History] Carvedilol [Coreg] 6.25 mg PO BIDMEALS 07/15/16 [History] DULoxetine [Cymbalta] 90 mg PO BEDTIME 07/15/16 [History] Losartan [Cozaar] 25 mg PO BID 07/15/16 [History] Nitroglycerin 0.4 mg SL ONETIME PRN #14 tab.subl 07/15/16 [Rx] Spironolactone [Aldactone] 12.5 mg PO BID 07/15/16 [History] Patient Handouts: Nonspecific Chest Pain, [id number], Nitroglycerin sublingual tablets Referrals: Alan Diaz MD [Physician] - 07/23/16 3:00 pm - Patient Data Vitals - Most Recent: Last Vital Signs Temp 36.3 C 07/15/16 04:00 Pulse 78 07/15/16 04:00 Resp 17 07/15/16 04:00 BP 120/74 07/15/16 04:00 Pulse Ox 93 L 07/15/16 04:00 Weight - Most Recent: 87 kg I&O - Last 24 hours: Intake & Output 07/14/16 07/15/16 07/15/16 22:59 06:59 14:59 Intake Total 470 Output Total 880 Balance -410 Lab Results - Last 24 hrs: Laboratory Results - last 24 hr 07/14/16 07/14/16 07/15/16 Range/Units 20:56 22:27 03:50 POC Glucose 313 H (60-110) mg/dL Troponin I < 0.10 < 0.10 (0.0-0.29) NG/ML 07/15/16 Range/Units 06:21 POC Glucose 226 H (60-110) mg/dL Troponin I (0.0-0.29) NG/ML Med Orders - Current: Current Medications Gabapentin (Neurontin) 300 mg PO TID [facility] Last Admin: 07/15/16 06:17 Dose: 300 mg Sodium Chloride (Normal Saline) 1,000 mls @ 100 mls/hr IV ASDIRECTED [facility] Last Admin: 07/14/16 17:50 Dose: 100 mls/hr Insulin Aspart (Novolog) 0 unit SUBCUT TIDAC [facility] PRN Reason: Protocol Last Admin: 07/15/16 06:54 Dose: 4 units Insulin Glargine (Lantus Solostar) 30 units SUBCUT BEDTIME [facility] Last Admin: 07/14/16 22:53 Dose: 30 units Morphine Sulfate (Morphine) 2 mg IVPUSH Q2H PRN PRN Reason: Pain Oxycodone/Acetaminophen (Percocet 325-10 Mg) 1 tab PO QID PRN PRN Reason: Pain Sodium Chloride (Saline Flush) 10 ml FLUSH ASDIRECTED PRN PRN Reason: Keep Vein Open Last Admin: 07/14/16 17:47 Dose: 10 ml Sodium Chloride (Saline Flush) 2.5 ml FLUSH ASDIRECTED PRN PRN Reason: Keep Vein Open Last Admin: 07/14/16 17:47 Dose: 2.5 ml Discontinued Medications Diclofenac Sodium (Voltaren) 75 mg PO BIDM [facility] Last Admin: 07/14/16 22:17 Dose: Not Given Nitroglycerin (Nitrostat) 0.4 mg SL Q5M PRN PRN Reason: Chest Pain Stop: 07/14/16 17:57 Last Admin: 07/14/16 17:50 Dose: 0.4 mg Nitroglycerin (Nitro-Bid 2%) 1 gm TOP ONETIME ONE Stop: 07/14/16 17:55 Last Admin: 07/14/16 18:02 Dose: 1 gm *Q Meaningful Use (DIS) - VTE *Q VTE Criteria *Q: - Stroke *Q Stroke Criteria *Q: - AMI *Q AMI Criteria *Q: <Jovany Spaulding - Last Filed: 07/16/16 11:09> - Patient Data Vitals - Most Recent: Last Vital Signs Temp 36.6 C 07/15/16 16:28 Pulse 87 07/15/16 16:28 Resp 18 07/15/16 16:28 BP 118/73 07/15/16 16:28 Pulse Ox 96 07/15/16 16:28 I&O - Last 24 hours: Intake & Output 07/15/16 07/16/16 07/16/16 22:59 06:59 14:59 Intake Total 1000 Output Total 2450 Balance -1450 Lab Results - Last 24 hrs: Laboratory Results - last 24 hr 07/15/16 07/15/16 07/15/16 Range/Units 12:56 14:19 15:34 POC Glucose 499 H 338 H 255 H (60-110) mg/dL Med Orders - Current: Current Medications Discontinued Medications Carvedilol (Coreg) 6.25 mg PO ONETIME ONE Stop: 07/15/16 12:59 Last Admin: 07/15/16 13:12 Dose: 6.25 mg Diclofenac Sodium (Voltaren) 75 mg PO BIDM [facility] Last Admin: 07/14/16 22:17 Dose: Not Given Gabapentin (Neurontin) 300 mg PO TID [facility] Last Admin: 07/15/16 13:12 Dose: 300 mg Sodium Chloride (Normal Saline) 1,000 mls @ 100 mls/hr IV ASDIRECTED [facility] Last Admin: 07/14/16 17:50 Dose: 100 mls/hr Insulin Aspart (Novolog) 0 unit SUBCUT TIDAC [facility] PRN Reason: Protocol Last Admin: 07/15/16 13:03 Dose: Not Given Insulin Aspart (Novolog) 15 unit SUBCUT ONETIME ONE Stop: 07/15/16 13:04 Last Admin: 07/15/16 13:14 Dose: 15 units Insulin Aspart (Novolog) 7 unit SUBCUT ONETIME ONE Stop: 07/15/16 14:27 Last Admin: 07/15/16 14:38 Dose: 7 units Insulin Glargine (Lantus Solostar) 30 units SUBCUT BEDTIME [facility] Last Admin: 07/14/16 22:53 Dose: 30 units Losartan Potassium (Cozaar) 25 mg PO DAILY [facility] Last Admin: 07/15/16 13:11 Dose: 25 mg Morphine Sulfate (Morphine) 2 mg IVPUSH Q2H PRN PRN Reason: Pain Nitroglycerin (Nitrostat) 0.4 mg SL Q5M PRN PRN Reason: Chest Pain Stop: 07/14/16 17:57 Last Admin: 07/14/16 17:50 Dose: 0.4 mg Nitroglycerin (Nitro-Bid 2%) 1 gm TOP ONETIME ONE Stop: 07/14/16 17:55 Last Admin: 07/14/16 18:02 Dose: 1 gm Oxycodone/Acetaminophen (Percocet 325-10 Mg) 1 tab PO QID PRN PRN Reason: Pain Sodium Chloride (Saline Flush) 10 ml FLUSH ASDIRECTED PRN PRN Reason: Keep Vein Open Last Admin: 07/14/16 17:47 Dose: 10 ml Sodium Chloride (Saline Flush) 2.5 ml FLUSH ASDIRECTED PRN PRN Reason: Keep Vein Open Last Admin: 07/14/16 17:47 Dose: 2.5 ml Spironolactone (Aldactone) 12.5 mg PO ONETIME ONE Stop: 07/15/16 12:59 Last Admin: 07/15/16 13:11 Dose: 12.5 mg *Q Meaningful Use (DIS) - VTE *Q VTE Criteria *Q: - Stroke *Q Stroke Criteria *Q: - AMI *Q AMI Criteria *Q: - Free Text/Narrative Note: I have examined the patient. I have discussed findings and treatment plan with resident. I agree with the assessment and plan outlined in the following resident's note.
[2016-07-15] MEDS ORDERED: Carvedilol 6.25 MG Tab PO ONE (12:58)
[2016-07-15] MEDS ORDERED: Spironolactone 25 MG Tab PO ONE (12:58)
[2016-07-15] MEDS ORDERED: Losartan 50 MG Tab PO SCH (13:00)
[2016-07-15] MEDS ORDERED: Insulin Aspart 100 Units/ML 3 ML Pen SUBCUT ONE ×2 (13:03→14:26)
[2016-07-15 16:30] VITALS: BP 118/73
--- NOTE | 2016-07-16 11:55 | CR ---
EXAM DATE: 07/14/16 PATIENT'S AGE: 50 Patient: EVELIO COSME Facility: [place], [place] Site . Site : 1965 Study: XRay Chest [id number] 6:03:40 PM Ordering Physician: Rios Jacob Final Report: CHEST 1 VIEW AP INDICATION: Chest pain. IMPRESSION: Normal heart size and vascular pattern. Lungs are clear. No pneumothorax or pleural abnormality. ECG Monitor leads projected over the patient. Dictated by Jani Carey MD @ Jul 14 2016 6:10PM (Electronic Signature) Report Signed by Proxy. RONALD
== END 2016-07-15 16:00 | disposition home or self-care (01) ==
LOC: MW.ED 17:40 → MW.MS 18:21
PROVIDERS: ADMIT Internal Medicine; ATTEND Internal Medicine
DX: I44.7 Left bundle-branch block, unspecified (principal); E10.65 Type 1 diabetes mellitus with hyperglycemia; I25.2 Old myocardial infarction; J45.909 Unspecified asthma, uncomplicated; M54.9 Dorsalgia, unspecified; G89.29 Other chronic pain; Z79.4 Long term (current) use of insulin; Z79.82 Long term (current) use of aspirin; Z79.899 Other long term (current) drug therapy; Z90.49 Acquired absence of other specified parts of digestive tract
CPT/HCPCS: 36415; 71010; 80053; 82962; 84484; 85025; 85610; 93005; 96360; 99285; A9270; G0378; J1815; J7040

== ENCOUNTER 2016-09-04 09:54 | Observation (INO) | payer OTHER, SELFPAY ==
[2016-09-04] MEDS ORDERED: Sodium Chloride 0.9% 10 ML Syringe FLUSH PRN (10:02)
[2016-09-04] MEDS ORDERED: Aspirin 81 MG Tab.Chew PO ONE (10:02)
[2016-09-04] MEDS ORDERED: Sodium Chloride 0.9% 2.5 ML Syringe FLUSH PRN (10:02)
[2016-09-04] MEDS ORDERED: Nitroglycerin 0.4 MG Tab.SL SL ONE (10:02)
--- NOTE | 2016-09-04 10:19 | EDM.PDOC ---
ED HPI GENERAL MEDICAL PROBLEM - General Chief Complaint: Chest Pain Stated Complaint: PT HAS CHEST PAINS Time Seen by Provider: 09/04/16 10:01 Source of Information: Reports: Patient, Old Records, RN Notes Reviewed History Limitations: Reports: No Limitations - History of Present Illness INITIAL COMMENTS - FREE TEXT/NARRATIVE: HISTORY AND PHYSICAL: []50-year-old male presenting with left-sided chest pain some tingling to his left arm History of Present Illness: []Patient has known history of diabetes with insulin tendency Patient has known history of coronary artery disease Non-STEMI Last admission to the hospital was July 08, 2016 Patient relates to sitting at his desk pain occurred about 3:30pm and is not remembering events until about 4:20 PM. Blood glucose at this time was reported as 70 . Patient went home for the evening does not remember having much pain. He was getting up this morning and pain occurred at 8:30. He relates the pain is slightly different than what he has previously had. He did not take his Nitrostat for the pain. He did not take his insulin this morning. Blood glucose at bedside is 319. he would normally take his regular insulin 10 units for this he does have this and his pocket and will administer this himself He does answer questions appropriately alert and oriented Review of Systems: As per history of present illness and below otherwise all systems reviewed and negative. Past medical history: As per history of present illness and as reviewed below otherwise noncontributory. Surgical history: As per history of present illness and as reviewed below otherwise noncontributory. Social history: No reported history of drug or alcohol abuse. Family history: As per history of present illness and as reviewed below otherwise noncontributory. Physical exam: Fair skinned gentleman with reddish hair, alert and oriented. HEENT: Atraumatic, normocehpalic, pupils reactive, negative for conjunctival pallor or scleral icterus, mucous membranes moist, throat clear, neck supple, nontender, trachea midline. No carotid bruit. Lungs: Clear to auscultation, breath sounds equal bilaterally, chest non tender. Heart: S1S2, regular, negative for clicks, rubs, or JVD. EKG sinus rhythm at 84 bpm. left bundle branch block Abdomen: Soft, nondistended, nontender. Negative for masses or hepatossplenmegaly. Negative for costovertebral tenderness. Pelvis: Stable nontender. Genitourinary: Deferred. Rectal: Deferred Extremities: Atraumatic, negative for cords or calf pain. No peripheral edema Neurovascular unremarkable. Neuro: Awake, alert, oriented. Cranial nerves II through XII unremarkable. Cerebellum unremarkable. Motor and sensory unremarkable throughout. Exam nonfocal. Discussed case with Dr. Tio Persaud who will come to the emergency room and evaluate the patient Dr. Carrenoelin here and examined patient has accepted patient for observation on telemetry requesting CT of head be completed, Consult with Dr. Deleon, who has been notified of consult. Patient is pain-free and will be transferred for observation on telemetry. Diagnostics: [Chest pain protocol, bedside glucose ] Therapeutics: []Nitroststat Impression: [Acute coronary syndrome] Plan: [Referred for observation on telemetry] Definitive disposition and diagnosis as appropriate pending reevaluation and review of above. Onset: Sudden, Other (Pain started yesterday at 3:30 PM does not recall events leading to 4:20 PM pain started again at 8:30 this morning) Duration: Hour(s):, Getting Worse, Heavy Location: Reports: Chest Quality: Reports: Sharp, Stabbing Severity: Severe Improves with: Reports: None Associated Symptoms: Reports: No Other Symptoms Left Chest Pain Score (Numeric/FACES): 7 - Related Data Allergies Allergy/AdvReac Type Severity Reaction Status Date / Time No Known Allergies Allergy Verified 09/04/16 10:02 Home Meds: Home Meds Diclofenac Sodium [Voltaren] 75 mg PO BIDM 06/14/13 [History] Gabapentin [Neurontin] 300 mg PO TID 09/06/13 [History] Insulin Npl/Insulin Lispro [HumaLOG Mix 75-25 Vial] 0 units SQ TIDAC 07/07/16 [ History] Insulin Glarg,Human.Rec.Analog [Lantus] 30 units SQ BEDTIME 07/14/16 [History] oxyCODONE HCl/Acetaminophen [Percocet 10-325 mg Tablet] 10 - 325 mg PO QID PRN 07/14/16 [History] Aspirin [Ecotrin] 325 mg PO DAILY 07/15/16 [History] Carvedilol [Coreg] 6.25 mg PO BIDMEALS 07/15/16 [History] DULoxetine [Cymbalta] 90 mg PO BEDTIME 07/15/16 [History] Losartan [Cozaar] 25 mg PO BID 07/15/16 [History] Nitroglycerin 0.4 mg SL ONETIME PRN #14 tab.subl 07/15/16 [Rx] Spironolactone [Aldactone] 12.5 mg PO BID 07/15/16 [History] Past Medical History - Past Health History Medical/Surgical History: Denies Medical/Surgical History HEENT History: Reports: None Cardiovascular History: Reports: Angina, Heart Failure, [place] Respiratory History: Reports: Asthma Gastrointestinal History: Reports: None Genitourinary History: Reports: None Musculoskeletal History: Reports: Back Pain, Chronic Neurological History: Reports: Neuropathy, Diabetic Psychiatric History: Reports: Depression Endocrine/Metabolic History: Reports: Diabetes, Type I Hematologic History: Reports: None Immunologic History: Reports: None Oncologic (Cancer) History: Reports: None Dermatologic History: Reports: None - Infectious Disease History Infectious Disease History: Reports: Chicken Pox - Past Surgical History Head Surgeries/Procedures: Reports: None GI Surgical History: Reports: Cholecystectomy Social & Family History - Family History Family Medical History: Noncontributory - Tobacco Use Smoking Status *Q: Never Smoker Second Hand Smoke Exposure: No - Caffeine Use Caffeine Use: Reports: None - Alcohol Use Days Per Week of Alcohol Use: 0 - Recreational Drug Use Recreational Drug Use: No ED ROS GENERAL - Review of Systems Review Of Systems: ROS reveals no pertinent complaints other than HPI. ED EXAM, GENERAL - Physical Exam Exam: See Below (See dictation) EKG INTERPRETATION EKG Date: 09/04/16 Rhythm: NSR Rate (Beats/Min): 84 [place]: Normal P-Wave: Present QRS: LBBB ST-T: Normal Comparison: No Change Course - Vital Signs Last Recorded V/S: Last Vital Signs Temp 36.4 C 09/04/16 11:40 Pulse 77 09/04/16 12:00 Resp 16 09/04/16 12:00 BP 127/82 09/04/16 12:00 Pulse Ox 97 09/04/16 12:00 - Orders/Labs/Meds Orders: Active Orders 24 hr Category Date Time Status Patient Status [ADT] Stat ADT 09/04/16 11:17 Active Blood Glucose Check, Bedside [RC] ONETIME Care 09/04/16 10:04 Active Cardiac Monitoring [RC] . DIRECTED Care 09/04/16 10:02 Active EKG 12 Lead [EKG Documentation Completion] [RC] STAT Care 09/04/16 10:15 Active EKG Documentation Completion [RC] STAT Care 09/04/16 10:02 Active Oxygen Therapy [RC] ASDIRECTED Care 09/04/16 10:02 Active D-DIMER QUANTITATIVE [COAG] Stat Lab 09/04/16 10:08 Received INR,PT,PROTHROMBIN TIME [COAG] Stat Lab 09/04/16 10:08 Received UA W/MICROSCOPIC [URIN] Stat Lab 09/04/16 10:02 Uncollected Sodium Chloride 0.9% [Normal Saline] 1,000 ml Med 09/04/16 10:27 Active IV ASDIRECTED Sodium Chloride 0.9% [Saline Flush] Med 09/04/16 10:02 Active 10 ml FLUSH ASDIRECTED PRN Sodium Chloride 0.9% [Saline Flush] Med 09/04/16 10:02 Active 2.5 ml FLUSH ASDIRECTED PRN Peripheral IV Insertion Adult [OM.PC] Stat Oth 09/04/16 10:02 Ordered Saline Lock Insert [OM.PC] Stat Ot 09/04/16 10:02 Ordered Medication Orders Sodium Chloride (Normal Saline) 1,000 mls @ 999 mls/hr IV ASDIRECTED ESTEPHANIA Last Admin: 09/04/16 10:27 Dose: 999 mls/hr Sodium Chloride (Saline Flush) 10 ml FLUSH ASDIRECTED PRN PRN Reason: Keep Vein Open Sodium Chloride (Saline Flush) 2.5 ml FLUSH ASDIRECTED PRN PRN Reason: Keep Vein Open Labs: Laboratory Tests 09/04/16 09/04/16 09/04/16 Range/Units 10:08 10:08 10:08 WBC 3.76 L (4.0-11.0) K/uL RBC 4.46 L (4.50-5.90) M/uL Hgb 14.3 (13.0-17.0) g/dL Hct 40.2 (38.0-50.0) % MCV 90.1 (80.0-98.0) fL MCH 32.1 H (27.0-32.0) pg MCHC 35.6 (31.0-37.0) g/dL RDW Std Deviation 41.7 (28.0-62.0) fl RDW Coeff of [place] 13 (11.0-15.0) % Plt Count 197 (150-400) K/uL MPV 9.90 (7.40-12.00) fL Neut % (Auto) 61.8 (48.0-80.0) % Lymph % (Auto) 27.9 (16.0-40.0) % [place] % (Auto) 6.9 (0.0-15.0) % Eos % (Auto) 2.9 (0.0-7.0) % Baso % (Auto) 0.5 (0.0-1.5) % Neut # (Auto) 2.3 (1.4-5.7) K/uL Lymph # (Auto) 1.1 (0.6-2.4) K/uL [place] # (Auto) 0.3 (0.0-0.8) K/uL Eos # (Auto) 0.1 (0.0-0.7) K/uL Baso # (Auto) 0.0 (0.0-0.1) K/uL Nucleated RBC % 0.0 /100WBC Nucleated RBCs # 0 K/uL Sodium 142 (136-146) mmol/L Potassium 4.1 (3.5-5.1) mmol/L Chloride 107 (98-110) mmol/L Carbon Dioxide 24 (21-31) mmol/L BUN 11 (6.0-23.0) mg/dL Creatinine 1.0 (0.6-1.5) mg/dL Est Cr Clr Drug Dosing 101.61 mL/min Estimated GFR (MDRD) > 60.0 ml/min Glucose 338 H (60-110) mg/dL Calcium 8.7 L (8.8-10.8) mg/dL Total Bilirubin 1.1 (0.1-1.5) mg/dL AST 22 (5-40) IU/L ALT 22 (8-54) IU/L Alkaline Phosphatase 75 (40-150) Troponin I < 0.10 (0.0-0.29) NG/ML Total Protein 6.5 (6.0-8.0) g/dL Albumin 4.1 (3.5-5.0) g/dL Globulin 2.4 (2.0-3.5) g/dL Albumin/Globulin Ratio 1.7 (1.3-2.8) Meds: Medications Generic Name Dose Route Start Last Admin Trade Name Freq PRN Reason Stop Dose Admin Sodium Chloride 1,000 mls @ 999 mls/hr 09/04/16 10:27 09/04/16 10:27 Normal Saline IV 999 mls/hr ASDIRECTED ESTEPHANIA Administration Sodium Chloride 10 ml 09/04/16 10:02 Saline Flush FLUSH ASDIRECTED PRN Keep Vein Open Sodium Chloride 2.5 ml 09/04/16 10:02 Saline Flush FLUSH ASDIRECTED PRN Keep Vein Open Discontinued Medications Generic Name Dose Route Start Last Admin Trade Name Freq PRN Reason Stop Dose Admin Aspirin 324 mg 09/04/16 10:02 09/04/16 10:10 Aspirin PO 09/04/16 10:03 324 mg ONETIME ONE Administration Fentanyl 25 mcg 09/04/16 10:38 09/04/16 11:42 Sublimaze IVPUSH 09/04/16 10:39 Not Given ONETIME ONE Fentanyl 25 mcg 09/04/16 10:42 09/04/16 11:42 Sublimaze IVPUSH 09/04/16 10:43 Not Given ONETIME ONE Fentanyl 25 mcg 09/04/16 11:00 09/04/16 10:52 Sublimaze IVPUSH 09/04/16 11:01 25 mcg ONETIME ONE Administration Nitroglycerin 0.4 mg 09/04/16 10:02 09/04/16 10:41 Nitrostat SL 09/04/16 10:03 Not Given ONETIME ONE Nitroglycerin 0.4 mg 09/04/16 10:15 09/04/16 10:41 Nitrostat SL 09/04/16 10:26 0.4 mg Q5M PRN Administration Chest Pain Nitroglycerin 1 gm 09/04/16 10:45 09/04/16 10:52 Nitro-Bid 2% TOP 09/04/16 10:46 1 gm ONETIME ONE Administration Departure - Departure Time of Disposition: 12:19 Disposition: Refer to Observation Condition: Good Clinical Impression: Acute coronary syndrome, Atypical chest pain - My Orders Last 24 Hours: My Active Orders 09/04/16 10:02 Cardiac Monitoring [RC] . DIRECTED EKG Documentation Completion [RC] STAT Oxygen Therapy [RC] ASDIRECTED UA W/MICROSCOPIC [URIN] Stat Sodium Chloride 0.9% [Saline Flush] 10 ml FLUSH ASDIRECTED PRN Sodium Chloride 0.9% [Saline Flush] 2.5 ml FLUSH ASDIRECTED PRN Peripheral IV Insertion Adult [OM.PC] Stat Saline Lock Insert [OM.PC] Stat 09/04/16 10:04 Blood Glucose Check, Bedside [RC] ONETIME 09/04/16 10:08 D-DIMER QUANTITATIVE [COAG] Stat INR,PT,PROTHROMBIN TIME [COAG] Stat 09/04/16 10:15 EKG 12 Lead [EKG Documentation Completion] [RC] STAT 09/04/16 10:27 Sodium Chloride 0.9% [Normal Saline] 1,000 ml IV ASDIRECTED 09/04/16 11:17 Patient Status [ADT] Stat - Assessment/Plan Last 24 Hours: My Active Orders 09/04/16 10:02 Cardiac Monitoring [RC] . DIRECTED EKG Documentation Completion [RC] STAT Oxygen Therapy [RC] ASDIRECTED UA W/MICROSCOPIC [URIN] Stat Sodium Chloride 0.9% [Saline Flush] 10 ml FLUSH ASDIRECTED PRN Sodium Chloride 0.9% [Saline Flush] 2.5 ml FLUSH ASDIRECTED PRN Peripheral IV Insertion Adult [OM.PC] Stat Saline Lock Insert [OM.PC] Stat 09/04/16 10:04 Blood Glucose Check, Bedside [RC] ONETIME 09/04/16 10:08 D-DIMER QUANTITATIVE [COAG] Stat INR,PT,PROTHROMBIN TIME [COAG] Stat 09/04/16 10:15 EKG 12 Lead [EKG Documentation Completion] [RC] STAT 09/04/16 10:27 Sodium Chloride 0.9% [Normal Saline] 1,000 ml IV ASDIRECTED 09/04/16 11:17 Patient Status [ADT] Stat
[2016-09-04] MEDS: Nitroglycerin 0.4 MG Tab.SL SL PRN ×3 (10:21→10:41)
[2016-09-04] MEDS ORDERED: Sodium Chloride 0.9% 1,000 ML IV SCH (10:27)
[2016-09-04] MEDS ORDERED: fentaNYL 250 MCG/5 ML SDV IVPUSH ONE ×2 (10:38→10:42)
[2016-09-04 10:44] LABS: CHLORIDE,CL 107 mmol/L (98-110); SODIUM,NA 142 mmol/L (136-146)
[2016-09-04] MEDS ORDERED: Nitroglycerin 2% Oint 1 GM UD Packet TOP ONE (10:45)
--- NOTE | 2016-09-04 10:46 | CR ---
EXAMINATION: Portable chest radiograph. HISTORY: Chest pain. FINDINGS: The trachea is midline. The cardiomediastinal silhouette is within normal limits. No pulmonary infil trates, effusions or pneumothorax. Osseous structures appear unremarkable. IMPRESSION: No acute cardiopulmonary process.
[2016-09-04] MEDS ORDERED: fentaNYL 100 MCG/2 ML SDV IVPUSH ONE (11:00)
--- NOTE | 2016-09-04 11:53 | CT ---
EXAMINATION: Non contrast CT head. Coronal and sagittal reformats. HISTORY: Pain FINDINGS: No evidence of intra or extra axial hemorrhage, mass, midline shift, hydrocephalus or edema. No hypoattenuation changes in the major vascular territories to suggest acute infarct. No abnormal intracranial calcifications are detected. No evidence of substantial vascular calcifica tions. Mucosal thickening is noted within the ethmoid air cells. Mastoid air cells are clear. Pituitary fossa appears unremarkable. The optic nerves appear mildly thickened and undulating. Calvarium is intact. No evidence of skull fracture. IMPRESSION: 1. No acute intracranial findings. 2. The optic nerves are prominent, correlate clinically for papilledema.
--- NOTE | 2016-09-04 14:03 | PCM.HP ---
H&P History of Present Illness - General Date of Service: 09/04/16 - History of Present Illness Initial Comments - Free Text/Narative: This man presented to the ED today at the request of co workers. He was noted yesterday to having had a period of seeming to be less responsive and falling asleep. He has very little memory for an approximate 18 hour period of time from yesterday afternoon until this morning . Now he feels normal except that he has some slight LUE numbness without motor weakness. he has a slight headache. Left Chest Pain Score (Numeric/FACES): 1 - Related Data Allergies/Adverse Reactions: Allergies Allergy/AdvReac Type Severity Reaction Status Date / Time No Known Allergies Allergy Verified 09/04/16 10:02 Home Medications: Home Meds Aspirin [Ecotrin] 325 mg PO DAILY 07/15/16 [History] Carvedilol [Coreg] 3.125 mg PO BIDMEALS 07/15/16 [History] DULoxetine [Cymbalta] 90 mg PO BEDTIME 07/15/16 [History] Losartan [Cozaar] 25 mg PO BID 07/15/16 [History] Nitroglycerin 0.4 mg SL ONETIME PRN #14 tab.subl 07/15/16 [Rx] Spironolactone [Aldactone] 25 mg PO BID 07/15/16 [History] Insulin Detemir [Levemir Flextouch] 30 units SUBCUT BEDTIME 09/04/16 [History] Isosorbide Mononitrate [Imdur] 30 mg PO DAILY 09/04/16 [History] Past Medical History - Past Health History Medical/Surgical History: Denies Medical/Surgical History HEENT History: Reports: None Cardiovascular History: Reports: Angina, CAD, Heart Failure, [place] Respiratory History: Reports: Asthma. Denies: COPD Gastrointestinal History: Reports: None. Denies: Cirrhosis Genitourinary History: Reports: None. Denies: Chronic Renal Insuffiency Musculoskeletal History: Reports: Back Pain, Chronic. Denies: RA Neurological History: Reports: Neuropathy, Diabetic, Other (See Below) (he has a history of pseudotumor cerebri) Psychiatric History: Reports: Depression Endocrine/Metabolic History: Reports: Other (See Below) (diabetes mellitus) Hematologic History: Reports: None Immunologic History: Reports: None Oncologic (Cancer) History: Reports: None Dermatologic History: Reports: None - Infectious Disease History Infectious Disease History: Reports: Chicken Pox - Past Surgical History Head Surgeries/Procedures: Reports: None GI Surgical History: Reports: Cholecystectomy Social & Family History - Family History Family Medical History: Noncontributory - Tobacco Use Smoking Status *Q: Never Smoker Second Hand Smoke Exposure: Yes - Caffeine Use Caffeine Use: Reports: Coffee - Alcohol Use Days Per Week of Alcohol Use: 0 Alcohol Use in Last Twelve Months: No - Recreational Drug Use Recreational Drug Use: No H&P Review of Systems - Review of Systems: Review Of Systems: See Below General: Denies: Fever, Chills HEENT: Reports: Headaches (mild recent headache). Denies: Eye Pain Pulmonary: Denies: Shortness of Breath, Cough Cardiovascular: Reports: Chest Pain (he states that he has had a continuous mild chest heaviness for months. ) Gastrointestinal: Denies: Abdominal Pain, Black Stool, Bloody Stool, Hematemesis , Hematochezia, Melena Genitourinary: Denies: Dysuria, Burning, Hematuria Psychiatric: Reports: Other (as per HPI) Neurological: Denies: Seizure Exam - Exam Exam: See Below - Vital Signs Vital Signs: Last Vital Signs Temp 97.5 F 09/04/16 12:45 Pulse 81 09/04/16 12:45 Resp 14 09/04/16 12:45 BP 129/74 09/04/16 12:45 Pulse Ox 94 L 09/04/16 12:45 Weight: 89.267 kg - Exam General: Alert, Oriented, Cooperative HEENT: EOMI, Mucosa Moist & [place] Neck: Supple, Trachea Midline Lungs: Clear to Auscultation, Normal Respiratory Effort Cardiovascular: Regular Rate, Regular Rhythm. No: Systolic Murmur, Diastolic Murmur Abdomen: No: Distention, Tenderness (Male) Exam: Deferred Rectal (Males) Exam: Deferred Extremities: No: Cool, Edema Neurological: Cranial Nerves Intact, Normal Speech. No: Focal Deficit Neuro Extensive - Motor, Sensory, Reflexes: No: Normal Gait, Dysarthria, Receptive Aphasia, Facial palsy (L), Facial Palsy (R), Pronator Drift (R), Pronator Drift (L), Abnormal Finger to Nose Psychiatric: Alert, Normal Affect. 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; subjective slight numbness LUE ) - Patient Data Lab Results Last 24 hrs: Laboratory Results - last 24 hr 09/04/16 09/04/16 Range/Units 12:05 13:20 POC Glucose 196 H (60-110) mg/dL Urine Color YELLOW Urine Appearance CLEAR Urine pH 5.5 (5.0-8.0) Ur Specific [place] >= 1.030 (1.001-1.035) Urine Protein NEGATIVE (NEGATIVE) mg/dL Urine Glucose (UA) >=1000 (NEGATIVE) mg/dL Urine Ketones NEGATIVE (NEGATIVE) mg/dL Urine Occult Blood NEGATIVE (NEGATIVE) Urine Nitrite NEGATIVE (NEGATIVE) Urine Bilirubin NEGATIVE (NEGATIVE) Urine Urobilinogen 0.2 (<2.0) EU/dL Ur Leukocyte Esterase NEGATIVE (NEGATIVE) Urine RBC NONE SEEN (0-2/HPF) Urine WBC 0-1 (0-5/HPF) Ur Epithelial Cells RARE (NONE-FEW) Urine Bacteria RARE (NEGATIVE) Urine Mucus LIGHT (NONE-MOD) Result Diagrams: 09/04/16 10:08 09/04/16 10:08 *Q Meaningful Use (ADM) - VTE *Q VTE Criteria *Q: - Stroke *Q Stroke Criteria *Q: - AMI *Q AMI Criteria *Q: - Problem List (1) Transient global amnesia SNOMED Code(s): 284141688 ICD Code: G45.4 - TRANSIENT GLOBAL AMNESIA Status: Acute Current Visit: Yes (2) History of coronary artery disease SNOMED Code(s): 085900647 ICD Code: Z86.79 - PERSONAL HISTORY OF OTHER DISEASES OF THE CIRCULATORY SYSTEM Status: Acute Current Visit: Yes Problem List Initiated/Reviewed/Updated: Yes Orders Last 24hrs: Medication Orders Sodium Chloride (Normal Saline) 1,000 mls @ 999 mls/hr IV ASDIRECTED COUNT INCLUDES THE [facility] Last Admin: 09/04/16 10:27 Dose: 999 mls/hr Sodium Chloride (Saline Flush) 10 ml FLUSH ASDIRECTED PRN PRN Reason: Keep Vein Open Sodium Chloride (Saline Flush) 2.5 ml FLUSH ASDIRECTED PRN PRN Reason: Keep Vein Open Assessment/Plan Comment:: Dr Deleon was consulted from the ER admit to observation carotid ultrasound, MRI brain, echocardiogram, aspirin neurochecks. telemetry Tio Posadas MD
[2016-09-04] MEDS: Aspirin 81 MG Tab.Chew PO SCH (14:34)
--- NOTE | 2016-09-04 16:32 | US ---
EXAMINATION: Carotid US with espinoza scale and duplex imaging. HISTORY: Amnesia FINDINGS: Ultrasound examination of bilateral cervical carotid arteries was performed using espinoza scale and dup chele imaging. There is minimal scattered atheromatous plaque within the carotid arteries bilaterally . Antegrade flow is noted within the vertebral arteries. These are the peak velocities in cm per second (systole), right and left respectively, by a comma: CCA (common carotid artery) - 57, 76 ICA (internal carotid artery) - 57, 59 ECA (External carotid artery) - 70, 55 ICA/CCA systolic ratio Right - 1.3 Left - 1.0 IMPRESSION: No significant narrowing on espinoza scale imaging or elevated velocities within the carotid arteries bi laterally.
[2016-09-04] MEDS: Insulin Aspart 100 Units/ML 3 ML Pen SUBCUT SCH (17:07)
[2016-09-04] MEDS: Carvedilol 6.25 MG Tab PO SCH (17:07)
[2016-09-04] MEDS ORDERED: Gadobenate Dimeglumine 529 MG/ML 20 ML SDV IVPUSH STA (18:22)
--- NOTE | 2016-09-04 18:26 | PCM.CONS ---
H&P History of Present Illness - General Date of Service: 09/04/16 - History of Present Illness Initial Comments - Free Text/Narative: 50 year old man with a history of intracranial hypertension admitted with chest pain. He also had an amnestic episode. 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 The secretary specialist told him that he fell asleep. She woke him up and walked him over to another location. He then fell asleep again. They shook him to wake him up. The next thing he remembers, he was standing outside the building. He has no recollection of going to [place]. No tonic clonic activity, weakness during episode that he knows of . He was talking towards the end of the episode He drank some water and seemed to wake up some. He denies weakness, numbness, imbalance. He has had increasing chest pain the last 2 days. It can occur at rest or with activity. Pain is stabbing. I last saw him for intracranial hyper tension in December. He started Topamax. His headaches were improved on Topamax. He ran out a month ago. His headaches come and go . He has had headaches yesterday and today since event. The only thing different yesterday was 2 cups of coffee. He usually doesnt drink caffeine. He endorses light-headedness, which is chronic. CT head today showed acute process. Carotid US today showed no abnormalities. TTE completed. MRI brain pending Left Chest Pain Score (Numeric/FACES): 1 - Related Data Allergies/Adverse Reactions: Allergies Allergy/AdvReac Type Severity Reaction Status Date / Time No Known Allergies Allergy Verified 09/04/16 10:02 Home Medications: Home Meds Aspirin [Ecotrin] 325 mg PO DAILY 07/15/16 [History] Carvedilol [Coreg] 3.125 mg PO BIDMEALS 07/15/16 [History] DULoxetine [Cymbalta] 90 mg PO BEDTIME 07/15/16 [History] Losartan [Cozaar] 25 mg PO BID 07/15/16 [History] Nitroglycerin 0.4 mg SL ONETIME PRN #14 tab.subl 07/15/16 [Rx] Spironolactone [Aldactone] 25 mg PO BID 07/15/16 [History] Insulin Detemir [Levemir Flextouch] 30 units SUBCUT BEDTIME 09/04/16 [History] Isosorbide Mononitrate [Imdur] 30 mg PO DAILY 09/04/16 [History] Past Medical History - Past Health History Medical/Surgical History: Denies Medical/Surgical History HEENT History: Reports: None Cardiovascular History: Reports: Angina, CAD, Heart Failure, [place] Respiratory History: Reports: Asthma. Denies: COPD Gastrointestinal History: Reports: None. Denies: Cirrhosis Genitourinary History: Reports: None. Denies: Chronic Renal Insuffiency Musculoskeletal History: Reports: Back Pain, Chronic. Denies: RA Neurological History: Reports: Neuropathy, Diabetic, Other (See Below) (he has a history of pseudotumor cerebri) Psychiatric History: Reports: Depression Endocrine/Metabolic History: Reports: Other (See Below) (diabetes mellitus) Hematologic History: Reports: None Immunologic History: Reports: None Oncologic (Cancer) History: Reports: None Dermatologic History: Reports: None - Infectious Disease History Infectious Disease History: Reports: Chicken Pox - Past Surgical History Head Surgeries/Procedures: Reports: None GI Surgical History: Reports: Cholecystectomy Social & Family History - Family History Family Medical History: Noncontributory - Tobacco Use Smoking Status *Q: Never Smoker Second Hand Smoke Exposure: Yes - Caffeine Use Caffeine Use: Reports: Coffee - Alcohol Use Days Per Week of Alcohol Use: 0 - Recreational Drug Use Recreational Drug Use: No H&P Review of Systems - Review of Systems: Review Of Systems: ROS reveals no pertinent complaints other than HPI. Exam - Exam Exam: See Below - Vital Signs Vital Signs: Last Vital Signs Temp 36.3 C 09/04/16 16:00 Pulse 83 09/04/16 17:07 Resp 16 09/04/16 16:00 BP 139/90 09/04/16 17:07 Pulse Ox 98 09/04/16 16:00 Weight: 89.267 kg - Exam Physical Exam Comments:: Constitutional: No acute distress Psychiatric: Mood/Affect: normal/appropriate Neurological: Mental Status: General: Normal activity, good hygiene, appropriate appearance. Level of consciousness: Awake, alert. Orientation: Oriented to person, place, time and situation. Concentration/Attention Span: Normal. Comprehension/Praxis: Able to perform a three step command. Fund of Knowledge/memory: Registration 3/3, recall 2/3 Language: Fluent and articulate without evidence of aphasia or dysarthria. Cranial Nerves: Pupils equally round and reactive to light. Visual sheehan full to confrontation. Gaze conjugate, EOMI. Sensation intact and symmetric to light touch. Facial strength is full and symmetric. Palate elevates symmetrically. Normal shrug bilaterally. Tongue protrudes midline Motor: Normal tone in all groups. No drift. Power is 5/5 throughout proximal and distal muscles. Sensation: Sensation is intact to temp and vibratory sense. Deep tendon reflexes: Normoactive throughout. Coordination: Finger to nose, heel to nixon and rapid alternating movements are intact. Gait: Normal casual gait. Normal tandem HEENT: Eyes: non icteric, Mouth: moist mucus membranes Cardiovascular: RRR, no obvious murmur Respiratory: clear lungs GI: non tender - Patient Data Lab Results Last 24 hrs: Laboratory Results - last 24 hr 09/04/16 09/04/16 09/04/16 Range/Units 12:05 13:20 16:41 POC Glucose 196 H 114 H (60-110) mg/dL Troponin I (0.0-0.29) NG/ML Urine Color YELLOW Urine Appearance CLEAR Urine pH 5.5 (5.0-8.0) Ur Specific [place] >= 1.030 (1.001-1.035) Urine Protein NEGATIVE (NEGATIVE) mg/dL Urine Glucose (UA) >=1000 (NEGATIVE) mg/dL Urine Ketones NEGATIVE (NEGATIVE) mg/dL Urine Occult Blood NEGATIVE (NEGATIVE) Urine Nitrite NEGATIVE (NEGATIVE) Urine Bilirubin NEGATIVE (NEGATIVE) Urine Urobilinogen 0.2 (<2.0) EU/dL Ur Leukocyte Esterase NEGATIVE (NEGATIVE) Urine RBC NONE SEEN (0-2/HPF) Urine WBC 0-1 (0-5/HPF) Ur Epithelial Cells RARE (NONE-FEW) Urine Bacteria RARE (NEGATIVE) Urine Mucus LIGHT (NONE-MOD) 09/04/16 Range/Units 17:25 POC Glucose (60-110) mg/dL Troponin I < 0.10 (0.0-0.29) NG/ML Urine Color Urine Appearance Urine pH (5.0-8.0) Ur Specific [place] (1.001-1.035) Urine Protein (NEGATIVE) mg/dL Urine Glucose (UA) (NEGATIVE) mg/dL Urine Ketones (NEGATIVE) mg/dL Urine Occult Blood (NEGATIVE) Urine Nitrite (NEGATIVE) Urine Bilirubin (NEGATIVE) Urine Urobilinogen (<2.0) EU/dL Ur Leukocyte Esterase (NEGATIVE) Urine RBC (0-2/HPF) Urine WBC (0-5/HPF) Ur Epithelial Cells (NONE-FEW) Urine Bacteria (NEGATIVE) Urine Mucus (NONE-MOD) Result Diagrams: 09/04/16 10:08 09/04/16 10:08 Consult PN Assessment/Plan Procedures: Procedures ASSAY OF PROTEIN OTHER (08/23/15) ASSAY OF TROPONIN QUANT (07/14/16) BLOOD CULTURE FOR BACTERIA (05/07/15) BODY FLUID CELL COUNT (08/23/15) CHEST X-RAY 1 VIEW FRONTAL (07/14/16) CHEST X-RAY 2VW FRONTAL&LATL (05/07/15) COMPLETE CBC W/AUTO DIFF WBC (07/14/16) COMPREHEN METABOLIC PANEL (07/14/16) CT HEAD/BRAIN W/O DYE (08/23/15) CULTURE OTHR SPECIMN AEROBIC (08/23/15) DRUG SCRN 1+ CLASS NONCHROMO (07/07/13) DRUG TEST PRSMV DIR OPT OBS (07/08/16) ELECTRIC STIMULATION THERAPY (07/09/13) ELECTROCARDIOGRAM TRACING (07/14/16) EMERGENCY DEPT VISIT (07/14/16) EMERGENCY DEPT VISIT (07/07/16) EMERGENCY DEPT VISIT (05/07/15) EMERGENCY DEPT VISIT (01/15/15) EMERGENCY DEPT VISIT (09/23/14) EMERGENCY DEPT VISIT (06/14/13) EMERGENCY DEPT VISIT (06/14/13) EVALUATE PT USE OF INHALER (05/07/15) FLUOROGUIDE FOR SPINE INJECT (01/04/14) FREE ASSAY (FT-3) (07/08/16) GLUCOSE BLOOD TEST (07/14/16) GLUCOSE OTHER FLUID (08/23/15) GLYCOSYLATED HEMOGLOBIN TEST (07/08/16) HOT OR COLD PACKS THERAPY (01/04/14) HYDRATE IV INFUSION ADD-ON (07/08/16) HYDRATION IV INFUSION INIT (07/14/16) INFLUENZA ASSAY W/OPTIC (05/07/15) INJ FORAMEN EPIDURAL L/S (08/03/13) INJECT SPINE LUMBAR/SACRAL (01/04/14) MANUAL THERAPY 1/> REGIONS (01/04/14) METABOLIC PANEL TOTAL CA (11/30/15) MR ANGIOGRAPHY HEAD W/O DYE (08/28/15) MRI BRAIN STEM W/O & W/DYE (08/28/15) MRI LUMBAR SPINE W/O & W/DYE (08/04/13) MRI LUMBAR SPINE W/O DYE (09/09/13) PROTHROMBIN TIME (07/14/16) PT EVALUATION (01/04/14) PT RE-EVALUATION (09/03/13) ROUTINE VENIPUNCTURE (07/14/16) SMEAR GRAM STAIN (08/23/15) THER/PROPH/DIAG INJ IV PUSH (07/08/16) THER/PROPH/DIAG INJ SC/IM (05/07/15) THER/PROPH/DIAG IV INF INIT (05/07/15) THERAPEUTIC EXERCISES (09/13/13) TX/PRO/DX INJ NEW DRUG ADDON (07/08/16) TX/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 Etiology of altered mental status is unclear. AMS without focal deficits would be atypical for stroke/TIA although I cannot rule out that focal deficits during event as symptoms resloved. This would also be unusual with transient global amnesia given somnolence, falling asleep as TGA is typically associated isolated amnesia (mixed retrograde and anterograde) without altered alertness. I agree with MRI. I will defer to Dr. Posadas regarding chest pain work up. If this is coronary ischemia, he may have possibly developed transient global cerebral ischemia from hypotension. Recommendations: -I will follow up MRI -I recommend restarting Topamax for intracranial hypertension 50 mg X 1 week then 50 mg BID Problem List Initiated/Reviewed/Updated: Yes
[2016-09-04] MEDS ORDERED: Morphine 2 MG/ML Syringe IVPUSH ONE (19:30)
[2016-09-04] MEDS: Losartan 50 MG Tab PO SCH (20:28)
[2016-09-04] MEDS: Spironolactone 25 MG Tab PO SCH (20:29)
[2016-09-04] MEDS ORDERED: Insulin Detemir 100 Units/ML 3 ML Pen SUBCUT SCH ×2 (21:00)
[2016-09-04] MEDS ORDERED: DULoxetine 30 MG Cap PO SCH (21:00)
[2016-09-05] MEDS ORDERED: Aspirin 81 MG Tab.Chew PO ONE (07:57)
[2016-09-05] MEDS: Nitroglycerin 0.4 MG Tab.SL SL PRN ×3 (08:20→08:30)
[2016-09-05] MEDS: Spironolactone 25 MG Tab PO SCH (08:59)
[2016-09-05] MEDS: Carvedilol 6.25 MG Tab PO SCH (08:59)
[2016-09-05] MEDS: Aspirin 81 MG Tab.Chew PO SCH (09:00)
[2016-09-05] MEDS ORDERED: Isosorbide Mononitrate 30 MG Tab.ER PO SCH ×2 (09:00)
[2016-09-05] MEDS: Losartan 50 MG Tab PO SCH (09:00)
--- NOTE | 2016-09-05 09:47 | PCM.PN ---
- General Info Date of Service: 09/05/16 Admission Dx/Problem (Free Text): chest pain Subjective Update: Nurse notified me of patient chest pain. 12/17, feeling clammy and SOB. Chest pain is to anterior L chest, pain with deep breathing. NO tenderness to chest wall. some radiation to L arm with tingling in l hand and fingers. Stat EKG, troponin. Did consult Dr. Guthrie, he is well known to him. He will see him this morning. ASA and nitro SL given. - Review of Systems Pulmonary: Reports: shortness of breath Cardiovascular: Reports: Chest Pain (radiation to L arm with tingling to fingers ), Lightheadedness Gastrointestinal: Reports: No symptoms. Denies: Abdominal pain, Nausea, Vomiting Musculoskeletal: Denies: neck pain Skin: Reports: no symptoms Psychiatric: Reports: no symptoms - Patient Data Vitals - most recent: Last Vital Signs Temp 96.9 F 09/05/16 08:00 Pulse 88 09/05/16 08:59 Resp 22 H 09/05/16 08:00 BP 126/81 09/05/16 09:00 Pulse Ox 96 09/05/16 08:00 Weight - most recent: 89.267 kg I&O - last 24 hours: Intake & Output 09/04/16 09/05/16 09/05/16 22:59 06:59 14:59 Intake Total 400 420 Output Total 250 930 Balance 150 -510 Lab Results last 24 hrs: Laboratory Results - last 24 hr 09/04/16 09/04/16 09/04/16 Range/Units 12:05 13:20 16:41 POC Glucose 196 H 114 H (60-110) mg/dL Troponin I (0.0-0.29) NG/ML Urine Color YELLOW Urine Appearance CLEAR Urine pH 5.5 (5.0-8.0) Ur Specific [place] >= 1.030 (1.001-1.035) Urine Protein NEGATIVE (NEGATIVE) mg/dL Urine Glucose (UA) >=1000 (NEGATIVE) mg/dL Urine Ketones NEGATIVE (NEGATIVE) mg/dL Urine Occult Blood NEGATIVE (NEGATIVE) Urine Nitrite NEGATIVE (NEGATIVE) Urine Bilirubin NEGATIVE (NEGATIVE) Urine Urobilinogen 0.2 (<2.0) EU/dL Ur Leukocyte Esterase NEGATIVE (NEGATIVE) Urine RBC NONE SEEN (0-2/HPF) Urine WBC 0-1 (0-5/HPF) Ur Epithelial Cells RARE (NONE-FEW) Urine Bacteria RARE (NEGATIVE) Urine Mucus LIGHT (NONE-MOD) 09/04/16 09/04/16 09/04/16 Range/Units 17:25 19:42 20:16 POC Glucose 244 H (60-110) mg/dL Troponin I < 0.10 < 0.10 (0.0-0.29) NG/ML Urine Color Urine Appearance Urine pH (5.0-8.0) Ur Specific [place] (1.001-1.035) Urine Protein (NEGATIVE) mg/dL Urine Glucose (UA) (NEGATIVE) mg/dL Urine Ketones (NEGATIVE) mg/dL Urine Occult Blood (NEGATIVE) Urine Nitrite (NEGATIVE) Urine Bilirubin (NEGATIVE) Urine Urobilinogen (<2.0) EU/dL Ur Leukocyte Esterase (NEGATIVE) Urine RBC (0-2/HPF) Urine WBC (0-5/HPF) Ur Epithelial Cells (NONE-FEW) Urine Bacteria (NEGATIVE) Urine Mucus (NONE-MOD) 09/04/16 09/05/16 09/05/16 Range/Units 22:48 05:50 08:04 POC Glucose 156 H (60-110) mg/dL Troponin I < 0.10 < 0.10 (0.0-0.29) NG/ML Urine Color Urine Appearance Urine pH (5.0-8.0) Ur Specific [place] (1.001-1.035) Urine Protein (NEGATIVE) mg/dL Urine Glucose (UA) (NEGATIVE) mg/dL Urine Ketones (NEGATIVE) mg/dL Urine Occult Blood (NEGATIVE) Urine Nitrite (NEGATIVE) Urine Bilirubin (NEGATIVE) Urine Urobilinogen (<2.0) EU/dL Ur Leukocyte Esterase (NEGATIVE) Urine RBC (0-2/HPF) Urine WBC (0-5/HPF) Ur Epithelial Cells (NONE-FEW) Urine Bacteria (NEGATIVE) Urine Mucus (NONE-MOD) Med Orders - Current: Current Medications Aspirin (Aspirin) 81 mg PO DAILY [facility] Last Admin: 09/05/16 09:00 Dose: Not Given Carvedilol (Coreg) 3.125 mg PO BIDMEALS [facility] Last Admin: 09/05/16 08:59 Dose: 3.125 mg Duloxetine HCl (Cymbalta) 90 mg PO BEDTIME [facility] Last Admin: 09/04/16 20:28 Dose: 90 mg Insulin Aspart (Novolog) 0 unit SUBCUT TID@0730,1100,1700 [facility] PRN Reason: Protocol Last Admin: 09/04/16 17:07 Dose: Not Given Insulin Detemir (Levemir) 35 unit SUBCUT BEDTIME [facility] Last Admin: 09/04/16 20:37 Dose: 35 unit Isosorbide Mononitrate (Imdur) 30 mg PO DAILY [facility] Last Admin: 09/05/16 09:00 Dose: 30 mg Losartan Potassium (Cozaar) 25 mg PO BID [facility] Last Admin: 09/05/16 09:00 Dose: 25 mg Sodium Chloride (Saline Flush) 10 ml FLUSH ASDIRECTED PRN PRN Reason: Keep Vein Open Sodium Chloride (Saline Flush) 2.5 ml FLUSH ASDIRECTED PRN PRN Reason: Keep Vein Open Spironolactone (Aldactone) 25 mg PO BID [facility] Last Admin: 09/05/16 08:59 Dose: 25 mg Discontinued Medications Aspirin (Aspirin) 324 mg PO ONETIME ONE Stop: 09/04/16 10:03 Last Admin: 09/04/16 10:10 Dose: 324 mg Aspirin (Aspirin) 324 mg PO ONETIME ONE Stop: 09/05/16 07:58 Last Admin: 09/05/16 08:20 Dose: 324 mg Fentanyl (Sublimaze) 25 mcg IVPUSH ONETIME ONE Stop: 09/04/16 10:39 Last Admin: 09/04/16 11:42 Dose: Not Given Fentanyl (Sublimaze) 25 mcg IVPUSH ONETIME ONE Stop: 09/04/16 10:43 Last Admin: 09/04/16 11:42 Dose: Not Given Fentanyl (Sublimaze) 25 mcg IVPUSH ONETIME ONE Stop: 09/04/16 11:01 Last Admin: 09/04/16 10:52 Dose: 25 mcg Gadobenate Dimeglumine (Multihance) 20 ml IVPUSH ONETIME STA Stop: 09/04/16 18:23 Last Admin: 09/04/16 18:23 Dose: 17 ml Sodium Chloride (Normal Saline) 1,000 mls @ 999 mls/hr IV ASDIRECTED [facility] Last Admin: 09/04/16 10:27 Dose: 999 mls/hr Insulin Detemir (Levemir) 30 unit SUBCUT BEDTIME [place] Insulin Detemir (Levemir) 35 unit SUBCUT BEDTIME [place] Isosorbide Mononitrate (Imdur) 30 mg PO DAILY [place] Morphine Sulfate (Morphine) 2 mg IVPUSH ONETIME ONE Stop: 09/04/16 19:31 Last Admin: 09/04/16 19:51 Dose: 2 mg Nitroglycerin (Nitrostat) 0.4 mg SL ONETIME ONE Stop: 09/04/16 10:03 Last Admin: 09/04/16 10:41 Dose: Not Given Nitroglycerin (Nitrostat) 0.4 mg SL Q5M PRN PRN Reason: Chest Pain Stop: 09/04/16 10:26 Last Admin: 09/04/16 10:41 Dose: 0.4 mg Nitroglycerin (Nitro-Bid 2%) 1 gm TOP ONETIME ONE Stop: 09/04/16 10:46 Last Admin: 09/04/16 10:52 Dose: 1 gm Nitroglycerin (Nitrostat) 0.4 mg SL Q5M PRN PRN Reason: Chest Pain Stop: 09/21/16 23:59 Last Admin: 09/05/16 08:30 Dose: 0.4 mg - Exam Quality Assessment: supplemental oxygen General: alert, oriented, cooperative, no acute distress Neck: supple Lungs: Clear to auscultation, Normal respiratory effort Cardiovascular: Regular Rate, Regular Rhythm, No Murmurs, Other (to tenderness to chest wall on palpation) Extremities: no edema, normal pulses Psy/Mental Status: alert, normal affect, normal mood - Problem List & Annotations (1) Chest pain SNOMED Code(s): 11548658 Code(s): R07.9 - CHEST PAIN, UNSPECIFIED Status: Acute Current Visit: Yes (2) Altered awareness, transient SNOMED Code(s): 840955312 Code(s): R40.4 - TRANSIENT ALTERATION OF AWARENESS Status: Acute Current Visit: Yes (3) History of coronary artery disease SNOMED Code(s): 470092087 Code(s): Z86.79 - PERSONAL HISTORY OF OTHER DISEASES OF THE CIRCULATORY SYSTEM Status: Chronic Current Visit: Yes - Problem List Review Problem List Initiated/Reviewed/Updated: Yes - My Orders Last 24 Hours: My Active Orders 09/04/16 17:13 Resuscitation Status Routine 09/05/16 07:55 EKG 12 Lead [EKG Documentation Completion] [RC] STAT 09/05/16 09:00 Consult to Physician [CONS] Routine 09/05/16 09:02 Notify Provider Consults [RC] ASDIRECTED - Plan Plan:: Dr eDleon was consulted from the ER admit to observation carotid ultrasound, MRI brain, echocardiogram, aspirin neurochecks. telemetry Tio Posadas MD 09/05/2016 1. Chest pain: Give SL nitro x3 with relief in chest pain. EKG reveals similar LBBB. Dr Guthrie consulted. Troponin negative. Will trend. ASA 325 given. Will monitor. 2. Transient altered awareness: Please see Dr Reeder consultation, will restart Topamax per her recommendations. 3. Hx CAD: Continue ASA, Coreg, and Imdur 4. HTN: Continue Losartan 5. DM type 2: Continue Novolog and Levemir VTE prophylaxis: SCDs DIspo: Pending consultation with Dr. Guthrie.
--- NOTE | 2016-09-05 09:48 | MR ---
EXAM DATE: 09/04/16 PATIENT'S AGE: 50 Patient: EVELIO COSME Facility: [place], [place] Site . Site : [id number] Study: MRI Head W/ and W/O Cont [id number]/28/2017 7:15:00 PM Ordering Physician: Katharina Kinsey Final Report: Indication: Transient global amnesia. Technique: Performed before and after IV gadolinium. Comparison: None are available. Findings: The study is degraded by patient motion artifact. No abnormal contrast enhancement involving the brain parenchyma, meninges, calvarium or skull base. No evidence for recent or remote infarct or hemorrhage. No intracranial mass effect. No ventricular obstruction. No signal changes in the brain parenchyma. Grossly normal flow voids are maintained in the directly imaged intracranial vascular structures. The craniovertebral junction is unremarkable, with a patent foramen magnum. Both temporal bones are clear. There is slight membrane thickening in the ethmoid paranasal sinuses. Impression: 1. Motion degraded exam. 2. No acute pathology identified. No evidence for mass, hemorrhage or recent infarct. 3. Slight paranasal sinus inflammatory change Dictated by Benji Aguilera MD @ Sep 05 2016 7:49AM (Electronic Signature) Report Signed by Proxy. RONALD
[2016-09-05 11:54] VITALS: BP 114/69
[2016-09-05] MEDS: Insulin Aspart 100 Units/ML 3 ML Pen SUBCUT SCH (12:06)
--- NOTE | 2016-09-05 12:11 | PCM.DCSUM1 ---
Discharge Summary - Hospital Course Brief History: This 50 year old male with pmh of diabetes with insulin dependency, CAD and NSTEMI July,, presented to ED with complaints of amnesia. He reported sitting at his desk and chest pain occurred about 3:30pm and is not remembering events until about 4:20 PM. Blood glucose at this time was reported as 70 . Patient went home for the evening does not remember having much pain. He was getting up this morning and pain occurred at 8:30. He relates the chest pain is slightly different than what he has previously had. He did answer questions appropriately alert and oriented. EKG in ED revealed LBBB no ST segment changes and troponin negative. He was admitted for chest pain and transietn altered awareness. - Discharge Data Discharge Date: 09/05/16 Discharge Disposition: Home, Self-Care 01 Condition: Good - Discharge Diagnosis/Problem(s) (1) Chest pain SNOMED Code(s): 69285851 ICD Code: R07.9 - CHEST PAIN, UNSPECIFIED Status: Acute (2) Altered awareness, transient SNOMED Code(s): 001265718 ICD Code: R40.4 - TRANSIENT ALTERATION OF AWARENESS Status: Acute (3) History of coronary artery disease SNOMED Code(s): 719227927 ICD Code: Z86.79 - PERSONAL HISTORY OF OTHER DISEASES OF THE CIRCULATORY SYSTEM Status: Chronic - Patient Summary/Data Consults: Consultations 09/05/16 09:00 Consult to Physician [CONS] Routine - Patient Instructions Diet: Heart Healthy Diet, Diabetic Diet Activity: No Strenuous Activities (light duty until follow up with Dr. Guthrie) Driving: May Drive Today Showering/Bathing: May Shower Notify Provider of: Fever, Increased Pain, Swelling and Redness, Drainage, Nausea and/or Vomiting - Discharge Plan Prescriptions/Med Rec: Topiramate [Topamax] 50 mg PO DAILY #35 tablet Home Medications: Home Meds Aspirin [Ecotrin] 325 mg PO DAILY 07/15/16 [History] Carvedilol [Coreg] 12.5 mg PO BIDMEALS 07/15/16 [History] DULoxetine [Cymbalta] 90 mg PO BEDTIME 07/15/16 [History] Losartan [Cozaar] 25 mg PO BID 07/15/16 [History] Nitroglycerin 0.4 mg SL ONETIME PRN #14 tab.subl 07/15/16 [Rx] Spironolactone [Aldactone] 25 mg PO BID 07/15/16 [History] Insulin Detemir [Levemir Flextouch] 35 units SUBCUT BEDTIME 09/04/16 [History] Isosorbide Mononitrate [Imdur] 30 mg PO DAILY 09/04/16 [History] Topiramate [Topamax] 50 mg PO DAILY #35 tablet 09/05/16 [Rx] Patient Handouts: Transient Global Amnesia, Chest Wall Pain, [id number], Topiramate tablets Referrals: [facility] [Outside] Alan Guthrie MD [Physician] - 09/12/16 1:30 pm Christal Deleon MD [Physician] - 09/16/16 2:30 pm - Discharge Summary/Plan Comment DC Time >30 min.: No Discharge Summary/Plan Comment: Discharge diagnoses Chest pain- ACS ruled out Hx intracranial hypertension CAD CHF EF <20% DM type 2, IDDM Shirley was admitted and ACS ruled out. Dr. Guthrie did see him this morning , he is well known to him. Feels comfortable with discharge today. EF known at < 20. Continue all home medications and to follow up with Dr. Herndon as outpatient. Angiogram completed this spring which was negative. Regarding transient altered awareness, Dr. Deleon was consulted. Please so consultation. MRI negative. She recommended restarting Topomax which patient discontinue per self after prescription ran out. This was started per Dr. Deleon for intracranial hypertension. Will restart this today and arrange follow up with Dr. Deleon. No further altered awareness states. He is alert and oriented. he is to return to ED or clinic if concerns should arise, light duty encouraged at work. Follow up with Dr. Guthrie and Dr. Deleon as scheduled. - General Info Date of Service: 09/05/16 Admission Dx/Problem (Free Text: chest pain Subjective Update: Feeling much better this afternoon. eager for discharge home. Functional Status: Reports: pain controlled, tolerating diet, ambulating, urinating - Review of Systems Pulmonary: Reports: no symptoms. Denies: shortness of breath, cough, sputum Cardiovascular: Reports: No Symptoms. Denies: Chest Pain, Edema Gastrointestinal: Reports: No symptoms. Denies: Abdominal pain, Nausea, Vomiting Genitourinary: Reports: no symptoms Skin: Reports: no symptoms Neurological: Reports: No Symptoms Psychiatric: Reports: no symptoms - Patient Data Vitals - Most Recent: Last Vital Signs Temp 96.9 F 09/05/16 11:53 Pulse 87 09/05/16 11:53 Resp 22 H 09/05/16 11:53 BP 114/69 09/05/16 11:53 Pulse Ox 96 09/05/16 11:53 Weight - Most Recent: 89.267 kg I&O - Last 24 hours: Intake & Output 09/04/16 09/05/16 09/05/16 22:59 06:59 14:59 Intake Total 400 420 Output Total 250 930 Balance 150 -510 Lab Results - Last 24 hrs: Laboratory Results - last 24 hr 09/04/16 09/04/16 09/04/16 Range/Units 12:05 13:20 16:41 POC Glucose 196 H 114 H (60-110) mg/dL Troponin I (0.0-0.29) NG/ML Urine Color YELLOW Urine Appearance CLEAR Urine pH 5.5 (5.0-8.0) Ur Specific [place] >= 1.030 (1.001-1.035) Urine Protein NEGATIVE (NEGATIVE) mg/dL Urine Glucose (UA) >=1000 (NEGATIVE) mg/dL Urine Ketones NEGATIVE (NEGATIVE) mg/dL Urine Occult Blood NEGATIVE (NEGATIVE) Urine Nitrite NEGATIVE (NEGATIVE) Urine Bilirubin NEGATIVE (NEGATIVE) Urine Urobilinogen 0.2 (<2.0) EU/dL Ur Leukocyte Esterase NEGATIVE (NEGATIVE) Urine RBC NONE SEEN (0-2/HPF) Urine WBC 0-1 (0-5/HPF) Ur Epithelial Cells RARE (NONE-FEW) Urine Bacteria RARE (NEGATIVE) Urine Mucus LIGHT (NONE-MOD) 09/04/16 09/04/16 09/04/16 Range/Units 17:25 19:42 20:16 POC Glucose 244 H (60-110) mg/dL Troponin I < 0.10 < 0.10 (0.0-0.29) NG/ML Urine Color Urine Appearance Urine pH (5.0-8.0) Ur Specific [place] (1.001-1.035) Urine Protein (NEGATIVE) mg/dL Urine Glucose (UA) (NEGATIVE) mg/dL Urine Ketones (NEGATIVE) mg/dL Urine Occult Blood (NEGATIVE) Urine Nitrite (NEGATIVE) Urine Bilirubin (NEGATIVE) Urine Urobilinogen (<2.0) EU/dL Ur Leukocyte Esterase (NEGATIVE) Urine RBC (0-2/HPF) Urine WBC (0-5/HPF) Ur Epithelial Cells (NONE-FEW) Urine Bacteria (NEGATIVE) Urine Mucus (NONE-MOD) 09/04/16 09/05/16 09/05/16 Range/Units 22:48 05:50 08:04 POC Glucose 156 H (60-110) mg/dL Troponin I < 0.10 < 0.10 (0.0-0.29) NG/ML Urine Color Urine Appearance Urine pH (5.0-8.0) Ur Specific [place] (1.001-1.035) Urine Protein (NEGATIVE) mg/dL Urine Glucose (UA) (NEGATIVE) mg/dL Urine Ketones (NEGATIVE) mg/dL Urine Occult Blood (NEGATIVE) Urine Nitrite (NEGATIVE) Urine Bilirubin (NEGATIVE) Urine Urobilinogen (<2.0) EU/dL Ur Leukocyte Esterase (NEGATIVE) Urine RBC (0-2/HPF) Urine WBC (0-5/HPF) Ur Epithelial Cells (NONE-FEW) Urine Bacteria (NEGATIVE) Urine Mucus (NONE-MOD) 09/05/16 Range/Units 12:00 POC Glucose 269 H (60-110) mg/dL Troponin I (0.0-0.29) NG/ML Urine Color Urine Appearance Urine pH (5.0-8.0) Ur Specific [place] (1.001-1.035) Urine Protein (NEGATIVE) mg/dL Urine Glucose (UA) (NEGATIVE) mg/dL Urine Ketones (NEGATIVE) mg/dL Urine Occult Blood (NEGATIVE) Urine Nitrite (NEGATIVE) Urine Bilirubin (NEGATIVE) Urine Urobilinogen (<2.0) EU/dL Ur Leukocyte Esterase (NEGATIVE) Urine RBC (0-2/HPF) Urine WBC (0-5/HPF) Ur Epithelial Cells (NONE-FEW) Urine Bacteria (NEGATIVE) Urine Mucus (NONE-MOD) Med Orders - Current: Current Medications Aspirin (Aspirin) 81 mg PO DAILY [facility] Last Admin: 09/05/16 09:00 Dose: Not Given Carvedilol (Coreg) 3.125 mg PO BIDMEALS [facility] Last Admin: 09/05/16 08:59 Dose: 3.125 mg Duloxetine HCl (Cymbalta) 90 mg PO BEDTIME [facility] Last Admin: 09/04/16 20:28 Dose: 90 mg Insulin Aspart (Novolog) 0 unit SUBCUT TID@0730,1100,1700 [facility] PRN Reason: Protocol Last Admin: 09/05/16 12:06 Dose: 6 units Insulin Detemir (Levemir) 35 unit SUBCUT BEDTIME [facility] Last Admin: 09/04/16 20:37 Dose: 35 unit Isosorbide Mononitrate (Imdur) 30 mg PO DAILY [facility] Last Admin: 09/05/16 09:00 Dose: 30 mg Losartan Potassium (Cozaar) 25 mg PO BID [facility] Last Admin: 09/05/16 09:00 Dose: 25 mg Sodium Chloride (Saline Flush) 10 ml FLUSH ASDIRECTED PRN PRN Reason: Keep Vein Open Sodium Chloride (Saline Flush) 2.5 ml FLUSH ASDIRECTED PRN PRN Reason: Keep Vein Open Spironolactone (Aldactone) 25 mg PO BID [facility] Last Admin: 09/05/16 08:59 Dose: 25 mg Discontinued Medications Aspirin (Aspirin) 324 mg PO ONETIME ONE Stop: 09/04/16 10:03 Last Admin: 09/04/16 10:10 Dose: 324 mg Aspirin (Aspirin) 324 mg PO ONETIME ONE Stop: 09/05/16 07:58 Last Admin: 09/05/16 08:20 Dose: 324 mg Fentanyl (Sublimaze) 25 mcg IVPUSH ONETIME ONE Stop: 09/04/16 10:39 Last Admin: 09/04/16 11:42 Dose: Not Given Fentanyl (Sublimaze) 25 mcg IVPUSH ONETIME ONE Stop: 09/04/16 10:43 Last Admin: 09/04/16 11:42 Dose: Not Given Fentanyl (Sublimaze) 25 mcg IVPUSH ONETIME ONE Stop: 09/04/16 11:01 Last Admin: 09/04/16 10:52 Dose: 25 mcg Gadobenate Dimeglumine (Multihance) 20 ml IVPUSH ONETIME STA Stop: 09/04/16 18:23 Last Admin: 09/04/16 18:23 Dose: 17 ml Sodium Chloride (Normal Saline) 1,000 mls @ 999 mls/hr IV ASDIRECTED [place] Last Admin: 09/04/16 10:27 Dose: 999 mls/hr Insulin Detemir (Levemir) 30 unit SUBCUT BEDTIME [place] Insulin Detemir (Levemir) 35 unit SUBCUT BEDTIME [facility] Isosorbide Mononitrate (Imdur) 30 mg PO DAILY [facility] Morphine Sulfate (Morphine) 2 mg IVPUSH ONETIME ONE Stop: 09/04/16 19:31 Last Admin: 09/04/16 19:51 Dose: 2 mg Nitroglycerin (Nitrostat) 0.4 mg SL ONETIME ONE Stop: 09/04/16 10:03 Last Admin: 09/04/16 10:41 Dose: Not Given Nitroglycerin (Nitrostat) 0.4 mg SL Q5M PRN PRN Reason: Chest Pain Stop: 09/04/16 10:26 Last Admin: 09/04/16 10:41 Dose: 0.4 mg Nitroglycerin (Nitro-Bid 2%) 1 gm TOP ONETIME ONE Stop: 09/04/16 10:46 Last Admin: 09/04/16 10:52 Dose: 1 gm Nitroglycerin (Nitrostat) 0.4 mg SL Q5M PRN PRN Reason: Chest Pain Stop: 09/21/16 23:59 Last Admin: 09/05/16 08:30 Dose: 0.4 mg - Exam General: Reports: alert, oriented, cooperative, no acute distress Lungs: Reports: Clear to auscultation, Normal respiratory effort Cardiovascular: Reports: Regular Rate, Regular Rhythm, No Murmurs, Other (no further chest pain) Extremities: Reports: no edema, normal pulses Psy/Mental Status: Reports: alert, normal affect, normal mood *Q Meaningful Use (DIS) - VTE *Q VTE Criteria *Q: - Stroke *Q Stroke Criteria *Q: - AMI *Q AMI Criteria *Q:
--- NOTE | 2016-09-06 19:15 | CONS ---
DATE OF CONSULTATION: 09/05/2016 DATE OF : 1965 PRIMARY CARE PHYSICIAN: None PCP REASON FOR CONSULTATION: Chest pain. Abnormal EKG. HISTORY OF PRESENT ILLNESS: This is a 50-year-old with a history of type 1 diabetes, chronic back pain, who I have seen in the Cardiology Clinic for nonischemic cardiomyopathy. He has a coronary angiogram done back in July. At that time, he was found to have LAD stenosis of 50% to 60%, RCA 30%, and it is not significant enough to have the stenting placement and also he was found to have cardiomyopathy with an ejection fraction of probably 20%. When I saw him in the clinic, we were planning to adjust his medication, including Coreg and Aldactone, however, he is here in the hospital at this time because of his chest pain in the left-sided chest wall. He said this happened when he was doing the yard work. It was 7 to 8/10 on a pain scale that lasted for few hours. Not improved by nitroglycerin with some shortness of breath, but no sweating and EKG showed left bundle-branch block pattern. It seemed to be a known finding and troponin has been checked three times and has become negative. When I talked to him, he seemed to be pain-free. PAST MEDICAL HISTORY: Including nonischemic cardiomyopathy as well as nonsignificant mild CAD, type 1 diabetes, and persisting left bundle-branch block pattern. ALLERGIES: No known drug allergies. FAMILY HISTORY: No family history of CAD. SOCIAL HISTORY: He denies smoking. No drug use. No alcohol use. REVIEW OF SYSTEMS: Seemed to be negative except as indicated in HPI. PHYSICAL EXAMINATION: VITAL SIGNS: Currently, blood pressure 114/68, temperature 36.1, heart rate of 87, respiration rate 22, and O2 sat 96. HEENT: Mild pale. Mild dry. No jaundice. NECK: No JVD. HEART: Normal S1 and S2. No murmur. Regular rate and rhythm. LUNGS: Clear. ABDOMEN: Soft, nontender. Bowel sounds present. No hepatosplenomegaly. EXTREMITIES: No edema. IMAGING DATA: EKG; left bundle-branch block pattern which is unchanged. INVESTIGATION: CBC; WBC 3, hematocrit 40, hemoglobin 14, and platelets 197. INR 1.1. D-dimer 0.2. Sodium 142, potassium 4.1, chloride 107, BUN 11, and creatinine 1.1. A1c 8.5. Liver function is normal. ASSESSMENT AND PLAN: This is a 50-year-old male with a history of nonsignificant coronary artery disease, nonischemic cardiomyopathy, ejection fraction of 20%, type I diabetes. Acute coronary syndrome has been ruled out and he just had a recent cardiac catheterization in July and no significant coronary artery disease to be amended. He should be able to be going home and I will see him as an outpatient for medication adjustment for cardiomyopathy. MERY BIGGS /[id number]
--- NOTE | 2016-09-12 11:41 | ECHO ---
EXAM DATE: 09/04/16 PATIENT'S AGE: 50 The echocardiogram report can be seen in this patient's EMR (Electronic Medical Records) in the Reports section. The report has also been scanned into PACS. RONALD
== END 2016-09-05 13:10 | disposition home or self-care (01) ==
LOC: MW.ED 09:54 → MW.MS 11:57
PROVIDERS: ADMIT Family Medicine; ATTEND Family Medicine
DX: R07.9 Chest pain, unspecified (principal); I25.10 Atherosclerotic heart disease of native coronary artery without angina pectoris; J45.909 Unspecified asthma, uncomplicated; I50.9 Heart failure, unspecified; Z79.4 Long term (current) use of insulin; R40.4 Transient alteration of awareness; Z79.82 Long term (current) use of aspirin; F32.9 Major depressive disorder, single episode, unspecified; G89.29 Other chronic pain; M54.9 Dorsalgia, unspecified; G93.2 Benign intracranial hypertension; R41.3 Other amnesia; E11.40 Type 2 diabetes mellitus with diabetic neuropathy, unspecified; I25.2 Old myocardial infarction
CPT/HCPCS: 36415; 70450; 70553; 71010; 80053; 81001; 82962; 84484; 85025; 85379; 85610; 93005; 93306; 93880; 96361; 96374; 96375; 99285; A9270; A9577; G0378; J1815; J2270; J3010; J7040

== ENCOUNTER 2016-11-30 13:45 | Emergency (ER) | payer MEDICAID, OTHER ==
[2016-11-30] MEDS ORDERED: Sodium Chloride 0.9% 1,000 ML IV ONE (13:55)
[2016-11-30] MEDS ORDERED: Sodium Chloride 0.9% 2.5 ML Syringe FLUSH PRN (13:55)
[2016-11-30] MEDS ORDERED: Sodium Chloride 0.9% 10 ML Syringe FLUSH PRN (13:55)
[2016-11-30] MEDS ORDERED: methylPREDNISolone Sodium Succinate 125 MG/2 ML SDV IVPUSH ONE (13:55)
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
[2016-11-30] MEDS ORDERED: Proparacaine 0.5% Ophth Soln 15 ML Bottle EYEBOTH STA (14:08)
[2016-11-30 15:14] VITALS: BP 155/88
--- NOTE | 2016-12-02 17:32 | CR ---
EXAM DATE: 11/30/16 PATIENT'S AGE: 50 Patient: EVELIO COSME Facility: [place], [place] Site . Site : 1965 Study: XRay Chest [id number]/23/2017 2:36:28 PM Ordering Physician: Calvin Villavicencio Final Report: HISTORY: Pain, shortness of breath. TECHNIQUE: Two views of the chest. COMPARISON: No prior. FINDINGS: AICD with leads terminating within the right atrium, right ventricle and coronary sinus. Cardiac size is within normal limits. No pulmonary vascular redistribution. There is no acute lung infiltrate or pulmonary edema. No pneumothorax or pleural effusion. No acute bony abnormality. IMPRESSION: No acute disease. Dictated by Miah Slaughter MD @ 11/30/2016 2:51:44 PM Dictated by: Miah Slaughter MD @ 11/30/2016 14:51:48 (Electronic Signature) Report Signed by Proxy. [facility]INICYanick
== END 2016-11-30 15:20 | disposition home or self-care (01) ==
LOC: MERGE 13:45 → MW.ED 13:45
DX: T20.10XA Burn of first degree of head, face, and neck, unspecified site, initial encounter (principal); T26.41XA Burn of right eye and adnexa, part unspecified, initial encounter; X02.0XXA Exposure to flames in controlled fire in building or structure, initial encounter; W40.1XXA Explosion of explosive gases, initial encounter
CPT/HCPCS: 71020; 96361; 96374; 99283; J2930; J7040

== ENCOUNTER 2016-12-17 09:35 | Emergency (ER) | payer MEDICAID, OTHER ==
[2016-12-17] MEDS ORDERED: Sodium Chloride 0.9% 10 ML Syringe FLUSH PRN (09:56)
[2016-12-17] MEDS ORDERED: Sodium Chloride 0.9% 2.5 ML Syringe FLUSH PRN (09:56)
[2016-12-17] MEDS ORDERED: Ondansetron 4 MG/2 ML SDV IVPUSH ONE (09:56)
[2016-12-17] MEDS ORDERED: Sodium Chloride 0.9% 1,000 ML IV ONE (09:56)
[2016-12-17] MEDS ORDERED: Morphine 2 MG/ML Syringe IVPUSH ONE (09:56)
[2016-12-17] MEDS ORDERED: Pantoprazole 40 MG Vial IVPUSH ONE (09:57)
--- NOTE | 2016-12-17 10:01 | EDM.PDOC ---
ED HPI GENERAL MEDICAL PROBLEM - General Chief Complaint: Gastrointestinal Problem Stated Complaint: BLACK STOOL Time Seen by Provider: 12/17/16 09:47 - History of Present Illness INITIAL COMMENTS - FREE TEXT/NARRATIVE: HISTORY AND PHYSICAL: History of present illness: The patient is a 51-year-old male with a history of hypertension diabetes ACS non-STEMI AK pacemaker who was admitted for approximately 6 days last week at [facility] in [place] for chest pain and problems with his lungs. The patient was discharged on Friday and says that he started having abdominal pain yesterday and it was worse today. He is unsure if they evaluated his abdomen at that time. He said that his heart was ruled out for the problems and as far as his lungs he had CT scans and consultations and they said it was not an infection but some of the tests are not back and they're concerned it might be cancer. The patient says he has had a cholecystectomy but has no abdominal history for GI history. He says his pain is very deep and located in the left upper quadrant and does not radiate. It is not in his flank and he has no urinary issues. He's had nausea but no vomiting and he says he has had a normal bowel movement but it was black in color both yesterday and today. The patient tells me he has a follow-up appointment with Dr. Diez in the clinic at 3 PM but he was told that if he had stomach pain he should come here. The patient is not sure if he is on a blood thinner but tells me that all his medications are on the list that he has given me and there are no blood thinners present on that. Review of systems: As per history of present illness and below otherwise all systems reviewed and negative. Past medical history: As per history of present illness and as reviewed below otherwise noncontributory. Surgical history: As per history of present illness and as reviewed below otherwise noncontributory. Social history: No reported history of drug or alcohol abuse. Family history: As per history of present illness and as reviewed below otherwise noncontributory. Physical exam: Gen.: Well-developed well-nourished man who is nontoxic and moves easily in the ED. Vital signs have been reviewed by me HEENT: Atraumatic, normocephalic, pupils reactive, negative for conjunctival pallor or scleral icterus, mucous membranes moist, throat clear, neck supple, nontender, trachea midline. Lungs: Clear to auscultation, breath sounds equal bilaterally, chest nontender. Heart: S1S2, regular, negative for clicks, rubs, or JVD. Abdomen: Soft, nondistended, nontender. On palpation I'm really not able to reproduce the pain as the patient tells me it is "deep". There is no rebound or guarding and bowel sounds are hypoactive Negative for masses or hepatosplenomegaly. Negative for costovertebral tenderness. Pelvis: Stable nontender. Genitourinary: Deferred. Rectal: Normal tone, no evidence of any masses or lesions, there is scant light brown stool in the vault without any black component and it is Hemoccult negative Extremities: Atraumatic, negative for cords or calf pain. Neurovascular unremarkable. Neuro: Awake, alert, oriented. Cranial nerves II through XII unremarkable. Cerebellum unremarkable. Motor and sensory unremarkable throughout. Exam nonfocal. Diagnostics: CBC CMP amylase lipase INR UA CT scan of the abdomen and pelvis Therapeutics: IV IV fluids Protonix Zofran and morphine Patient is aware of all testing results and care plan for discharge home. I advised him to monitor his intake as well as his stool output to see if the symptoms persist or change. I will also give him referral to our surgery group for possible endoscopy and colonoscopy but the patient has a follow-up appointment with Dr. Diez today at 3 PM to discuss testing results from his recent admission which I think is important for him to do. I told him that he should follow up today and discuss possible further testing of his GI tract with him as well. Impression: Abdominal pain with dark stools etiology unclear stable Definitive disposition and diagnosis as appropriate pending reevaluation and review of above. Abdominal Pain Score (Numeric/FACES): 5 - Related Data Allergies Allergy/AdvReac Type Severity Reaction Status Date / Time No Known Allergies Allergy Verified 12/17/16 09:45 Home Meds: Home Meds Losartan [Cozaar] 25 mg PO BID 07/15/16 [History] Spironolactone [Aldactone] 25 mg PO BID 07/15/16 [History] Insulin Detemir [Levemir Flextouch] 35 units SUBCUT BEDTIME 09/04/16 [History] Carvedilol 12.5 mg PO BIDMEALS 11/30/16 [History] DULoxetine [Cymbalta] 30 mg PO BID 11/30/16 [History] Insulin Aspart [NovoLOG] 35 unit SUBCUT TIDMEALS 11/30/16 [History] Ranolazine [Ranexa] 500 mg PO BID 11/30/16 [History] oxyCODONE HCl/Acetaminophen [Percocet 10-325 mg Tablet] 1 each PO Q6HR 11/30/16 [History] Aspirin 81 mg PO BRK 12/17/16 [History] Isosorbide Mononitrate [Imdur] 60 mg PO DAILY 12/17/16 [History] Nitroglycerin 0.4 mg SL Q5M PRN 12/17/16 [History] Past Medical History - Past Health History Medical/Surgical History: Denies Medical/Surgical History HEENT History: Reports: None Cardiovascular History: Reports: Angina, CAD, High Cholesterol, Heart Failure, Hypertension, AK, Other (See Below), Pacemaker Other Cardiovascular History: Valve Problem Respiratory History: Reports: Asthma Gastrointestinal History: Reports: None Genitourinary History: Reports: None Musculoskeletal History: Reports: Back Pain, Chronic Neurological History: Reports: Neuropathy, Diabetic, Other (See Below) Psychiatric History: Reports: Depression Endocrine/Metabolic History: Reports: Diabetes, Type I, Other (See Below) Hematologic History: Reports: None Immunologic History: Reports: None Oncologic (Cancer) History: Reports: None Dermatologic History: Reports: None - Infectious Disease History Infectious Disease History: Reports: Chicken Pox, None - Past Surgical History Head Surgeries/Procedures: Reports: None Social & Family History - Family History Family Medical History: Noncontributory - Tobacco Use Smoking Status *Q: Never Smoker Second Hand Smoke Exposure: Yes - Caffeine Use Caffeine Use: Reports: Coffee - Alcohol Use Days Per Week of Alcohol Use: 0 - Recreational Drug Use Recreational Drug Use: No ED ROS GENERAL - Review of Systems Review Of Systems: ROS reveals no pertinent complaints other than HPI. ED EXAM, GENERAL - Physical Exam Exam: See Below (See dictation) Course - Vital Signs Last Recorded V/S: Last Vital Signs Temp 36.2 C 12/17/16 09:46 Pulse 84 12/17/16 09:46 Resp 18 12/17/16 09:46 BP 124/82 12/17/16 09:46 Pulse Ox 98 12/17/16 09:55 - Orders/Labs/Meds Orders: Active Orders 24 hr Category Date Time Status EKG 12 Lead [EKG Documentation Completion] [] STAT Care 12/17/16 10:10 Active Oxygen Therapy, ED [] ASDIRECTED Care 12/17/16 09:55 Active Pulse Oximetry [RC] ASDIRECTED Care 12/17/16 09:56 Active Sodium Chloride 0.9% [Saline Flush] Med 12/17/16 09:56 Active 10 ml FLUSH ASDIRECTED PRN Sodium Chloride 0.9% [Saline Flush] Med 12/17/16 09:56 Active 2.5 ml FLUSH ASDIRECTED PRN Saline Lock Insert [OM.PC] Stat Oth 12/17/16 09:55 Ordered Medication Orders Sodium Chloride (Saline Flush) 10 ml FLUSH ASDIRECTED PRN PRN Reason: Keep Vein Open Last Admin: 12/17/16 10:35 Dose: 10 ml Sodium Chloride (Saline Flush) 2.5 ml FLUSH ASDIRECTED PRN PRN Reason: Keep Vein Open Last Admin: 12/17/16 10:35 Dose: 2.5 ml Labs: Laboratory Tests 12/17/16 12/17/16 12/17/16 Range/Units 10:27 10:27 10:27 WBC 4.48 (4.0-11.0) K/uL RBC 4.67 (4.50-5.90) M/uL Hgb 15.0 (13.0-17.0) g/dL Hct 41.5 (38.0-50.0) % MCV 88.9 (80.0-98.0) fL MCH 32.1 H (27.0-32.0) pg MCHC 36.1 (31.0-37.0) g/dL RDW Std Deviation 40.3 (28.0-62.0) fl RDW Coeff of Charles 13 (11.0-15.0) % Plt Count 196 (150-400) K/uL MPV 9.80 (7.40-12.00) fL Neut % (Auto) 49.6 (48.0-80.0) % Lymph % (Auto) 32.1 (16.0-40.0) % [place] % (Auto) 12.1 (0.0-15.0) % Eos % (Auto) 6.0 (0.0-7.0) % Baso % (Auto) 0.2 (0.0-1.5) % Neut # (Auto) 2.2 (1.4-5.7) K/uL Lymph # (Auto) 1.4 (0.6-2.4) K/uL [place] # (Auto) 0.5 (0.0-0.8) K/uL Eos # (Auto) 0.3 (0.0-0.7) K/uL Baso # (Auto) 0.0 (0.0-0.1) K/uL Nucleated RBC % 0.0 /100WBC Nucleated RBCs # 0 K/uL INR 1.03 (0.86-1.11) Sodium 141 (136-146) mmol/L Potassium 4.3 (3.5-5.1) mmol/L Chloride 103 (98-110) mmol/L Carbon Dioxide 29 (21-31) mmol/L BUN 10 (6.0-23.0) mg/dL Creatinine 0.8 (0.6-1.5) mg/dL Est Cr Clr Drug Dosing 125.58 mL/min Estimated GFR (MDRD) > 60.0 ml/min Glucose 172 H (60-110) mg/dL Calcium 8.8 (8.8-10.8) mg/dL Total Bilirubin 1.0 (0.1-1.5) mg/dL AST 56 H (5-40) IU/L ALT 55 H (8-54) IU/L Alkaline Phosphatase 83 (40-150) Total Protein 6.5 (6.0-8.0) g/dL Albumin 4.1 (3.5-5.0) g/dL Globulin 2.4 (2.0-3.5) g/dL Albumin/Globulin Ratio 1.7 (1.3-2.8) Amylase 14 (10-90) U/L Lipase < 9 (7-80) U/L Urine Color Urine Appearance Urine pH (5.0-8.0) Ur Specific Sullivan (1.001-1.035) Urine Protein (NEGATIVE) mg/dL Urine Glucose (UA) (NEGATIVE) mg/dL Urine Ketones (NEGATIVE) mg/dL Urine Occult Blood (NEGATIVE) Urine Nitrite (NEGATIVE) Urine Bilirubin (NEGATIVE) Urine Urobilinogen (<2.0) EU/dL Ur Leukocyte Esterase (NEGATIVE) Urine RBC (0-2/HPF) Urine WBC (0-5/HPF) Ur Epithelial Cells (NONE-FEW) Urine Bacteria (NEGATIVE) Urine Mucus (NONE-MOD) 12/17/16 Range/Units 11:07 WBC (4.0-11.0) K/uL RBC (4.50-5.90) M/uL Hgb (13.0-17.0) g/dL Hct (38.0-50.0) % MCV (80.0-98.0) fL MCH (27.0-32.0) pg MCHC (31.0-37.0) g/dL RDW Std Deviation (28.0-62.0) fl RDW Coeff of Charles (11.0-15.0) % Plt Count (150-400) K/uL MPV (7.40-12.00) fL Neut % (Auto) (48.0-80.0) % Lymph % (Auto) (16.0-40.0) % [place] % (Auto) (0.0-15.0) % Eos % (Auto) (0.0-7.0) % Baso % (Auto) (0.0-1.5) % Neut # (Auto) (1.4-5.7) K/uL Lymph # (Auto) (0.6-2.4) K/uL [place] # (Auto) (0.0-0.8) K/uL Eos # (Auto) (0.0-0.7) K/uL Baso # (Auto) (0.0-0.1) K/uL Nucleated RBC % /100WBC Nucleated RBCs # K/uL INR (0.86-1.11) Sodium (136-146) mmol/L Potassium (3.5-5.1) mmol/L Chloride (98-110) mmol/L Carbon Dioxide (21-31) mmol/L BUN (6.0-23.0) mg/dL Creatinine (0.6-1.5) mg/dL Est Cr Clr Drug Dosing mL/min Estimated GFR (MDRD) ml/min Glucose (60-110) mg/dL Calcium (8.8-10.8) mg/dL Total Bilirubin (0.1-1.5) mg/dL AST (5-40) IU/L ALT (8-54) IU/L Alkaline Phosphatase (40-150) Total Protein (6.0-8.0) g/dL Albumin (3.5-5.0) g/dL Globulin (2.0-3.5) g/dL Albumin/Globulin Ratio (1.3-2.8) Amylase (10-90) U/L Lipase (7-80) U/L Urine Color YELLOW Urine Appearance CLEAR Urine pH 6.0 (5.0-8.0) Ur Specific Sullivan 1.025 (1.001-1.035) Urine Protein NEGATIVE (NEGATIVE) mg/dL Urine Glucose (UA) 100 H (NEGATIVE) mg/dL Urine Ketones NEGATIVE (NEGATIVE) mg/dL Urine Occult Blood NEGATIVE (NEGATIVE) Urine Nitrite NEGATIVE (NEGATIVE) Urine Bilirubin NEGATIVE (NEGATIVE) Urine Urobilinogen 0.2 (<2.0) EU/dL Ur Leukocyte Esterase NEGATIVE (NEGATIVE) Urine RBC 0-1 (0-2/HPF) Urine WBC 1-2 (0-5/HPF) Ur Epithelial Cells RARE (NONE-FEW) Urine Bacteria RARE (NEGATIVE) Urine Mucus LIGHT (NONE-MOD) Meds: Medications Generic Name Dose Route Start Last Admin Trade Name Frealyssa PRN Reason Stop Dose Admin Sodium Chloride 10 ml 12/17/16 09:56 12/17/16 10:35 Saline Flush FLUSH 10 ml ASDIRECTED PRN Administration Keep Vein Open Sodium Chloride 2.5 ml 12/17/16 09:56 12/17/16 10:35 Saline Flush FLUSH 2.5 ml ASDIRECTED PRN Administration Keep Vein Open Discontinued Medications Generic Name Dose Route Start Last Admin Trade Name Freq PRN Reason Stop Dose Admin Sodium Chloride 1,000 mls @ 999 mls/hr 12/17/16 09:56 12/17/16 10:30 Normal Saline IV 12/17/16 10:56 999 mls/hr STAT ONE Administration Iopamidol 100 ml 12/17/16 12:44 12/17/16 12:53 Isovue Multipack-370 (76%) IVPUSH 12/17/16 12:45 100 ml ONETIME STA Administration Morphine Sulfate 4 mg 12/17/16 09:56 12/17/16 10:35 Morphine IVPUSH 12/17/16 09:57 4 mg ONETIME ONE Administration Ondansetron HCl 4 mg 12/17/16 09:56 12/17/16 10:31 Zofran IVPUSH 12/17/16 09:57 4 mg ONETIME ONE Administration Pantoprazole Sodium 80 mg 12/17/16 09:57 12/17/16 10:43 Protonix Iv IVPUSH 12/17/16 09:58 80 mg .BOLUS ONE Administration Departure - Departure Time of Disposition: 14:01 Disposition: Home, Self-Care 01 Condition: Good Clinical Impression: Abdominal pain Qualifiers: Abdominal location: left upper quadrant Qualified Code(s): R10.12 - Left upper quadrant pain - Discharge Information Referrals: PCP,None [Primary Care Provider] - Forms: ED Department Discharge Additional Instructions: The following information is given to patients seen in the emergency department who are being discharged to home. This information is to outline your options for follow-up care. We provide all patients seen in our emergency department with a follow-up referral. The need for follow-up, as well as the timing and circumstances, are variable depending upon the specifics of your emergency department visit. If you don't have a primary care physician on staff, we will provide you with a referral. We always advise you to contact your personal physician following an emergency department visit to inform them of the circumstance of the visit and for follow-up with them and/or the need for any referrals to a consulting specialist. The emergency department will also refer you to a specialist when appropriate. This referral assures that you have the opportunity for followup care with a specialist. All of these measure are taken in an effort to provide you with optimal care, which includes your followup. Under all circumstances we always encourage you to contact your private physician who remains a resource for coordinating your care. When calling for followup care, please make the office aware that this follow-up is from your recent emergency room visit. If for any reason you are refused follow-up, please contact the [facility] emergency department at and ask to speak to the emergency department charge nurse. [facility] Primary care- Internal Medicine and Family [id number] [place] [id number] Please go to your appointment this afternoon at [address] Diez. Return to ER as needed and as discussed. Continue all home medications. - My Orders Last 24 Hours: My Active Orders 12/17/16 09:55 Oxygen Therapy, ED [RC] ASDIRECTED Saline Lock Insert [OM.PC] Stat 12/17/16 09:56 Pulse Oximetry [RC] ASDIRECTED Sodium Chloride 0.9% [Saline Flush] 10 ml FLUSH ASDIRECTED PRN Sodium Chloride 0.9% [Saline Flush] 2.5 ml FLUSH ASDIRECTED PRN 12/17/16 10:10 EKG 12 Lead [EKG Documentation Completion] [RC] STAT - Assessment/Plan Last 24 Hours: My Active Orders 12/17/16 09:55 Oxygen Therapy, ED [RC] ASDIRECTED Saline Lock Insert [OM.PC] Stat 12/17/16 09:56 Pulse Oximetry [RC] ASDIRECTED Sodium Chloride 0.9% [Saline Flush] 10 ml FLUSH ASDIRECTED PRN Sodium Chloride 0.9% [Saline Flush] 2.5 ml FLUSH ASDIRECTED PRN 12/17/16 10:10 EKG 12 Lead [EKG Documentation Completion] [RC] STAT
[2016-12-17 10:58] LABS: CHLORIDE,CL 103 mmol/L (98-110); SODIUM,NA 141 mmol/L (136-146)
[2016-12-17] MEDS ORDERED: Iopamidol 755 MG/ML 500 ML Multipack Bottle IVPUSH STA (12:44)
--- NOTE | 2016-12-17 13:35 | CT ---
CT of the abdomen and pelvis with contrast. HISTORY: Pain, black stool TECHNIQUE: Axial CT images were obtained of the abdomen and pelvis following administration of 100 mL of Isovue-370 in the right arm without complication. Coronal and sagittal reconstructions obtained. FINDINGS: Mild dependent atelectasis within the lung bases. There are a few tiny 2 to 4 mm nodules noted within the right middle lobe, left lingula, and right lower lobe. There is an oval 3.6 x 2.7 cm mass within the left hepatic lobe near the gallbladder fossa demonstrat ing interrupted peripheral nodular enhancement. There is focal fatty infiltration near the falciform ligament. Cholecystectomy with mild prominence of the anterior and extrahepatic biliary ducts. No bul ky retroperitoneal lymphadenopathy or abdominal ascites. The kidneys enhance and function symmetrically without evidence of obstructive uropathy. Tiny renal c ortical cysts noted. Punctate nonobstructing right renal stone. The large and small bowel are normal in caliber without evidence of obstruction. No focal pericolonic inflammation or stranding. The appendix is normal. The urinary bladder is normal. No bulky pelvic ly mphadenopathy or free pelvic fluid. Tiny fat-containing right inguinal hernia. No suspicious osseous abnormalities identified. IMPRESSION: 1. No acute findings within the abdomen or pelvis. 2. Oval 3.6 x 2.7 cm peripherally enhancing nodule within the left hepatic lobe, most likely represen ting a hemangioma. Confirmation with a hepatic protocol CT or MRI may be beneficial. 3. Punctate nonobstructing right renal stone. 4. Cholecystectomy with mild resulting prominence of the biliary tree. 5. Tiny fat-containing right inguinal hernia.
[2016-12-17 19:13] VITALS: BP 128/76
== END 2016-12-17 14:20 | disposition home or self-care (01) ==
LOC: MW.ED 09:35
DX: R10.12 Left upper quadrant pain (principal); I11.0 Hypertensive heart disease with heart failure; I50.9 Heart failure, unspecified; I25.2 Old myocardial infarction; I25.10 Atherosclerotic heart disease of native coronary artery without angina pectoris; J45.909 Unspecified asthma, uncomplicated; E10.40 Type 1 diabetes mellitus with diabetic neuropathy, unspecified; F32.9 Major depressive disorder, single episode, unspecified; E78.00 Pure hypercholesterolemia, unspecified; Z79.82 Long term (current) use of aspirin; Z79.899 Other long term (current) drug therapy; Z79.4 Long term (current) use of insulin
CPT/HCPCS: 36415; 74177; 80053; 81001; 82150; 83690; 85025; 85610; 93005; 96361; 96374; 96375; 99284; C9113; J2270; J2405; J7040; Q9967; 99283

== ENCOUNTER 2016-12-23 13:24 | Observation (INO) | payer MEDICAID, OTHER ==
[2016-12-23] MEDS ORDERED: Sodium Chloride 0.9% 1,000 ML IV ONE (13:42)
[2016-12-23] MEDS ORDERED: Aspirin 81 MG Tab.Chew PO ONE (13:42)
--- NOTE | 2016-12-23 13:57 | EDM.PDOC ---
ED HPI GENERAL MEDICAL PROBLEM - General Chief Complaint: Chest Pain Stated Complaint: CHEST PAIN Time Seen by Provider: 12/23/16 13:41 Source of Information: Reports: Patient History Limitations: Reports: No Limitations - History of Present Illness INITIAL COMMENTS - FREE TEXT/NARRATIVE: HISTORY AND PHYSICAL: History of present illness: Patient is a 51-year-old male who presents to the emergency room today with complaints of chest pain, left arm and leg tingling, nausea, cold chills, and dizziness. Chest pain started at approximately 6:00 this morning. He states the following associated symptoms occurred after that. He did call his stiff leg derrick operator in [place] who suggested he follow-up in the emergency room. Patient reports "I wasn't going to come in, as I had these symptoms before". He states the only reason he did come in today as he had a new symptom of left-sided numbness of the arm and leg. He has no motor deficit. Full strength of the upper and lower extremity. No strokelike symptoms. Patient did take 3 tablets of nitroglycerin and 2 tablets of Percocet (these were prescribed while in [place]) which did not alleviate any of his symptoms. Approximately 1-2 weeks ago patient was admitted to [facility] in [place] with the initial complaints of chest pain. At that time he was found to have nodules on his lungs and was told that they are not going to do biopsy until they get larger. He was released to home and instructed to have close follow-up with his stiff leg derrick operator. Patient recently had a pacemaker placed approximately one month ago by Dr. Mercado , who is his stiff leg derrick operator. During this appointment with the stiff leg derrick operator he did have a chemical stress test, which the patient reports was normal. Patient has a past medical history of diabetes- insulin-dependent, coronary artery disease, NSTEMI (July 2016), and chronic pain. Denies any recent falls or injury, headache, abdominal pain or diarrhea. Denies any shortness of breath or fever. Review of systems: As per history of present illness and below otherwise all systems reviewed and negative. Past medical history: As per history of present illness and as reviewed below otherwise noncontributory. Surgical history: As per history of present illness and as reviewed below otherwise noncontributory. Social history: No reported history of drug or alcohol abuse. Family history: As per history of present illness and as reviewed below otherwise noncontributory. Physical exam: Gen.: Well-developed and well-nourished 51-year-old male. Able to speak in full sentences without shortness of breath. Alert and oriented HEENT: Atraumatic, normocephalic, pupils reactive, negative for conjunctival pallor or scleral icterus, mucous membranes moist, throat clear, neck supple, nontender, trachea midline. Lungs: Clear to auscultation, breath sounds equal bilaterally, chest nontender. Well healed incision under the left clavicle, pacemaker was placed approximately a month ago. Heart: S1S2, regular rate and rhythm Abdomen: Soft, nondistended, nontender. Negative for masses or hepatosplenomegaly. Negative for costovertebral tenderness. Pelvis: Stable nontender. Genitourinary: Deferred. Rectal: Deferred. Extremities: Atraumatic, moves all extremities per self. Has equal and strong upper and lower extremity strength and coordination. Pulses palpated to upper and lower distal extremities, equal and strong. negative for cords or calf pain. Neurovascular unremarkable. Neuro: Awake, alert, oriented. Cranial nerves II through XII unremarkable. Cerebellum unremarkable. Motor and sensory unremarkable throughout. Exam nonfocal. Vital signs have been reviewed by me. EKG was reviewed by me and Dr. Simmons. Many of these symptoms the patient is experiencing today are not new and he has had close follow-up with the stiff leg derrick operator in [place]. A full cardiac workup will be completed at this time. Dr. li agreed to accept this patient for observation admission. Diagnostics: CBC, CMP, troponin, EKG, one view chest, amylase, lipase Therapeutics: Aspirin Impression: Chest pain, r/o CO Plan: Observation admission Definitive disposition and diagnosis as appropriate pending reevaluation and review of above. Onset: Today (But has been ongoing for several weeks) Location: Reports: Chest Chest Pain Score (Numeric/FACES): 6 - Related Data Allergies Allergy/AdvReac Type Severity Reaction Status Date / Time No Known Allergies Allergy Verified 12/23/16 13:38 Home Meds: Home Meds Losartan [Cozaar] 25 mg PO BID 07/15/16 [History] Spironolactone [Aldactone] 25 mg PO BID 07/15/16 [History] Insulin Detemir [Levemir Flextouch] 30 units SUBCUT BEDTIME 09/04/16 [History] Carvedilol 12.5 mg PO BIDMEALS 11/30/16 [History] DULoxetine [Cymbalta] 30 mg PO DAILY 11/30/16 [History] Ranolazine [Ranexa] 500 mg PO BID 11/30/16 [History] Isosorbide Mononitrate [Imdur] 60 mg PO DAILY 12/17/16 [History] Nitroglycerin 0.4 mg SL Q5M PRN 12/17/16 [History] Aspirin [Ecotrin] 325 mg PO DAILY 12/23/16 [History] DULoxetine [Cymbalta] 60 mg PO BEDTIME 12/23/16 [History] Omeprazole 40 mg PO ACBREAKFAST 12/23/16 [History] Insulin Aspart [NovoLOG] See Protocol SUBCUT TIDMEALS #0 12/25/16 [Rx] oxyCODONE HCl/Acetaminophen [Percocet 10-325 mg Tablet] 1 each PO Q6HR #20 tablet 12/25/16 [Rx] Past Medical History - Past Health History Medical/Surgical History: Denies Medical/Surgical History HEENT History: Reports: None Cardiovascular History: Reports: Angina, CAD, High Cholesterol, Heart Failure, Hypertension, CO, Other (See Below), Pacemaker Other Cardiovascular History: Valve Problem Respiratory History: Reports: Asthma Gastrointestinal History: Reports: None Genitourinary History: Reports: None Musculoskeletal History: Reports: Back Pain, Chronic Neurological History: Reports: Neuropathy, Diabetic Psychiatric History: Reports: Depression Endocrine/Metabolic History: Reports: Diabetes, Type I, Other (See Below) Hematologic History: Reports: None Immunologic History: Reports: None Oncologic (Cancer) History: Reports: None Dermatologic History: Reports: None - Infectious Disease History Infectious Disease History: Reports: Chicken Pox, None - Past Surgical History Head Surgeries/Procedures: Reports: None Social & Family History - Family History Family Medical History: Noncontributory - Tobacco Use Smoking Status *Q: Unknown Ever Smoked Second Hand Smoke Exposure: Yes - Caffeine Use Caffeine Use: Reports: Coffee - Alcohol Use Days Per Week of Alcohol Use: 0 - Recreational Drug Use Recreational Drug Use: No ED ROS GENERAL - Review of Systems Review Of Systems: ROS reveals no pertinent complaints other than HPI. ED EXAM, GENERAL - Physical Exam Exam: See Below (See dictation) Course - Vital Signs Last Recorded V/S: Last Vital Signs Temp 35.9 C 12/25/16 08:00 Pulse 87 12/25/16 08:00 Resp 16 12/25/16 08:00 BP 120/68 12/25/16 08:06 Pulse Ox 92 L 12/25/16 08:00 - Orders/Labs/Meds Labs: Laboratory Tests 12/23/16 12/23/16 12/23/16 Range/Units 13:50 13:50 13:50 WBC 5.17 (4.0-11.0) K/uL RBC 4.69 (4.50-5.90) M/uL Hgb 15.2 (13.0-17.0) g/dL Hct 42.3 (38.0-50.0) % MCV 90.2 (80.0-98.0) fL MCH 32.4 H (27.0-32.0) pg MCHC 35.9 (31.0-37.0) g/dL RDW Std Deviation 42.2 (28.0-62.0) fl RDW Coeff of Charles 13 (11.0-15.0) % Plt Count 225 (150-400) K/uL MPV 9.70 (7.40-12.00) fL Neut % (Auto) 60.5 (48.0-80.0) % Lymph % (Auto) 27.7 (16.0-40.0) % [place] % (Auto) 8.5 (0.0-15.0) % Eos % (Auto) 2.5 (0.0-7.0) % Baso % (Auto) 0.8 (0.0-1.5) % Neut # (Auto) 3.1 (1.4-5.7) K/uL Lymph # (Auto) 1.4 (0.6-2.4) K/uL [place] # (Auto) 0.4 (0.0-0.8) K/uL Eos # (Auto) 0.1 (0.0-0.7) K/uL Baso # (Auto) 0.0 (0.0-0.1) K/uL Nucleated RBC % 0.0 /100WBC Nucleated RBCs # 0 K/uL D-Dimer, Quantitative (0.0-0.52) mg/LFEU Sodium 138 (136-146) mmol/L Potassium 4.2 (3.5-5.1) mmol/L Chloride 104 (98-110) mmol/L Carbon Dioxide 22 (21-31) mmol/L BUN 13 (6.0-23.0) mg/dL Creatinine 1.1 (0.6-1.5) mg/dL Est Cr Clr Drug Dosing 93.89 mL/min Estimated GFR (MDRD) > 60.0 ml/min Glucose 273 H (60-110) mg/dL Calcium 9.2 (8.8-10.8) mg/dL Total Bilirubin 1.0 (0.1-1.5) mg/dL AST 27 (5-40) IU/L ALT 32 (8-54) IU/L Alkaline Phosphatase 82 (40-150) Creatine Kinase 50 (9-236) IU/L CK-MB (CK-2) 1.5 (0-6.6) ng/ml Troponin I < 0.10 (0.0-0.29) NG/ML Total Protein 7.0 (6.0-8.0) g/dL Albumin 4.3 (3.5-5.0) g/dL Globulin 2.7 (2.0-3.5) g/dL Albumin/Globulin Ratio 1.6 (1.3-2.8) Amylase 15 (10-90) U/L Lipase < 9 (7-80) U/L Urine Color Urine Appearance Urine pH (5.0-8.0) Ur Specific [place] (1.001-1.035) Urine Protein (NEGATIVE) mg/dL Urine Glucose (UA) (NEGATIVE) mg/dL Urine Ketones (NEGATIVE) mg/dL Urine Occult Blood (NEGATIVE) Urine Nitrite (NEGATIVE) Urine Bilirubin (NEGATIVE) Urine Urobilinogen (<2.0) EU/dL Ur Leukocyte Esterase (NEGATIVE) Urine RBC (0-2/HPF) Urine WBC (0-5/HPF) Ur Epithelial Cells (NONE-FEW) Urine Bacteria (NEGATIVE) 12/23/16 12/23/16 Range/Units 13:50 15:05 WBC (4.0-11.0) K/uL RBC (4.50-5.90) M/uL Hgb (13.0-17.0) g/dL Hct (38.0-50.0) % MCV (80.0-98.0) fL MCH (27.0-32.0) pg MCHC (31.0-37.0) g/dL RDW Std Deviation (28.0-62.0) fl RDW Coeff of Charles (11.0-15.0) % Plt Count (150-400) K/uL MPV (7.40-12.00) fL Neut % (Auto) (48.0-80.0) % Lymph % (Auto) (16.0-40.0) % [place] % (Auto) (0.0-15.0) % Eos % (Auto) (0.0-7.0) % Baso % (Auto) (0.0-1.5) % Neut # (Auto) (1.4-5.7) K/uL Lymph # (Auto) (0.6-2.4) K/uL [place] # (Auto) (0.0-0.8) K/uL Eos # (Auto) (0.0-0.7) K/uL Baso # (Auto) (0.0-0.1) K/uL Nucleated RBC % /100WBC Nucleated RBCs # K/uL D-Dimer, Quantitative 0.23 (0.0-0.52) mg/LFEU Sodium (136-146) mmol/L Potassium (3.5-5.1) mmol/L Chloride (98-110) mmol/L Carbon Dioxide (21-31) mmol/L BUN (6.0-23.0) mg/dL Creatinine (0.6-1.5) mg/dL Est Cr Clr Drug Dosing mL/min Estimated GFR (MDRD) ml/min Glucose (60-110) mg/dL Calcium (8.8-10.8) mg/dL Total Bilirubin (0.1-1.5) mg/dL AST (5-40) IU/L ALT (8-54) IU/L Alkaline Phosphatase (40-150) Creatine Kinase (9-236) IU/L CK-MB (CK-2) (0-6.6) ng/ml Troponin I (0.0-0.29) NG/ML Total Protein (6.0-8.0) g/dL Albumin (3.5-5.0) g/dL Globulin (2.0-3.5) g/dL Albumin/Globulin Ratio (1.3-2.8) Amylase (10-90) U/L Lipase (7-80) U/L Urine Color YELLOW Urine Appearance CLEAR Urine pH 6.0 (5.0-8.0) Ur Specific [place] 1.015 (1.001-1.035) Urine Protein NEGATIVE (NEGATIVE) mg/dL Urine Glucose (UA) >=1000 (NEGATIVE) mg/dL Urine Ketones NEGATIVE (NEGATIVE) mg/dL Urine Occult Blood NEGATIVE (NEGATIVE) Urine Nitrite NEGATIVE (NEGATIVE) Urine Bilirubin NEGATIVE (NEGATIVE) Urine Urobilinogen 0.2 (<2.0) EU/dL Ur Leukocyte Esterase NEGATIVE (NEGATIVE) Urine RBC 0-1 (0-2/HPF) Urine WBC 0-1 (0-5/HPF) Ur Epithelial Cells RARE (NONE-FEW) Urine Bacteria RARE (NEGATIVE) Meds: Medications Discontinued Medications Generic Name Dose Route Start Last Admin Trade Name Freq PRN Reason Stop Dose Admin Acetaminophen 650 mg 12/23/16 17:06 Tylenol PO Q4H PRN Pain Aspirin 324 mg 12/23/16 13:42 12/23/16 14:24 Aspirin PO 12/23/16 13:43 324 mg ONETIME ONE Administration Aspirin 325 mg 12/24/16 09:00 12/25/16 08:08 Ecotrin PO 325 mg DAILY ESTEPHANIA Administration Carvedilol 12.5 mg 12/24/16 08:00 12/25/16 07:54 Coreg PO 12.5 mg BIDMEALS ESTEPHANIA Administration Dextrose/Water 50 ml 12/24/16 11:58 12/24/16 12:04 Dextrose 50% In Water IVPUSH 12/24/16 11:59 50 ml ONETIME ONE Administration Docusate Sodium 100 mg 12/24/16 18:48 12/24/16 19:24 Colace PO 100 mg BID PRN Administration Constipation Duloxetine HCl 30 mg 12/24/16 09:00 12/25/16 08:08 Cymbalta PO 30 mg DAILY ESTEPHANIA Administration Duloxetine HCl 60 mg 12/23/16 21:00 12/24/16 20:27 Cymbalta PO 60 mg BEDTIME ESTEPHANIA Administration Sodium Chloride 1,000 mls @ 999 mls/hr 12/23/16 13:42 12/23/16 14:24 Normal Saline IV 12/23/16 14:42 999 mls/hr STAT ONE Administration Insulin Aspart 35 unit 12/24/16 08:00 12/24/16 08:08 Novolog SUBCUT 35 units TIDMEALS ESTEPHANIA Administration Insulin Aspart 5 unit 12/25/16 01:24 12/25/16 01:32 Novolog SUBCUT 12/25/16 01:25 5 unit ONETIME ONE Administration Insulin Aspart 0 unit 12/25/16 07:45 12/25/16 07:45 Novolog SUBCUT 10 units TIDAC ESTEPHANIA Administration Protocol Insulin Detemir 30 unit 12/23/16 21:00 12/24/16 20:31 Levemir SUBCUT 30 units BEDTIME ESTEPHANIA Administration Isosorbide Mononitrate 60 mg 12/24/16 09:00 12/25/16 08:07 Imdur PO 60 mg DAILY ESTEPHANIA Administration Losartan Potassium 25 mg 12/23/16 21:00 12/25/16 08:06 Cozaar PO 25 mg BID [facility] Administration Morphine Sulfate 2 mg 12/23/16 14:39 12/23/16 15:01 Morphine IVPUSH 12/23/16 14:40 2 mg ONETIME ONE Administration Morphine Sulfate 2 mg 12/23/16 19:23 12/25/16 08:06 Morphine IVPUSH 2 mg Q4H PRN Administration Pain Morphine Sulfate 3 mg 12/24/16 08:15 12/24/16 08:29 Morphine IVPUSH 12/24/16 08:16 3 mg ONETIME ONE Administration Nitroglycerin 0.4 mg 12/23/16 18:52 Nitrostat SL Q5M PRN Chest Pain Omeprazole 40 mg 12/24/16 07:30 12/25/16 06:59 Omeprazole PO 40 mg ACBREAKFAST ESTEPHANIA Administration Ondansetron HCl 4 mg 12/23/16 17:06 Zofran IVPUSH Q4H PRN Nausea Oxycodone/Acetaminophen 1 - 2 tab 12/23/16 19:22 12/24/16 22:33 Percocet 325-5 Mg PO 2 tab Q4H PRN Administration Pain Ranolazine 500 mg 12/23/16 21:00 12/25/16 08:07 Ranexa PO 500 mg BID ESTEPHANIA Administration Spironolactone 25 mg 12/23/16 21:00 12/25/16 08:07 Aldactone PO 25 mg BID ESTEPHANIA Administration Departure - Departure Time of Disposition: 10:25 Disposition: Admitted As Inpatient 65 Clinical Impression: Chest pain, rule out acute myocardial infarction
[2016-12-23 14:35] LABS: CHLORIDE,CL 104 mmol/L (98-110); SODIUM,NA 138 mmol/L (136-146)
[2016-12-23] MEDS ORDERED: Morphine 2 MG/ML Syringe IVPUSH ONE (14:39)
--- NOTE | 2016-12-23 15:03 | CR ---
EXAMINATION: Portable chest radiograph. HISTORY: Shortness of breath. FINDINGS: The trachea is midline. The cardiomediastinal silhouette is within normal limits. No pulmonary infilt rates, effusions or pneumothorax. There is a left-sided pacemaker. Osseous structures appear unremarkable. IMPRESSION: No acute cardiopulmonary process.
--- NOTE | 2016-12-23 15:49 | CT ---
EXAMINATION: Non contrast CT head. Coronal and sagittal reformats. HISTORY: Pain FINDINGS: No evidence of intra or extra axial hemorrhage, mass, midline shift, hydrocephalus or edema. No hypoattenuation changes in the major vascular territories to suggest acute infarct. No abnormal intracranial calcifications are detected. No evidence of substantial vascular calcificat ions. Paranasal sinuses and mastoid air cells are well aerated without substantial findings. The optic ner ves appear prominent. Pituitary fossa appears unremarkable. Calvarium is intact. No evidence of skull fracture. IMPRESSION: 1. No acute intracranial findings. 2. Prominence of the optic nerves bilaterally, correlate clinically for papilledema.
[2016-12-23] MEDS ORDERED: Acetaminophen 325 MG Tab PO PRN (17:06)
[2016-12-23] MEDS ORDERED: Ondansetron 4 MG/2 ML SDV IVPUSH PRN (17:06)
--- NOTE | 2016-12-23 17:09 | PCM.HP ---
<Katy Chaudhari M - Last Filed: 12/23/16 19:22> H&P History of Present Illness - General Date of Service: 12/23/16 Admit Problem/Dx: Admission Diagnosis/Problem Admission Diagnosis/Problem Chest pain, rule out acute myocardial infarction Source of Information: Patient History Limitations: Reports: No Limitations - History of Present Illness Initial Comments - Free Text/Narative: This 51 year old male with pmh of recent pacemaker/ICD placement in [place] in October, Insulin dependent DM, CAD, NSTEMI in July 2016, and intracranial hypertension presented to the ED this morning with L anterior chest pain. He reports this pain started when he woke up at 6:00 am. He reports it hurts worse with deep breathing and pressing just right of his pacemaker. He denies cough, or hemoptysis. No dyspnea noted. He was admitted for chest pain and transient AMS in August 2016 here, he was noted to be non-complaint with medications and follow up after that visit. He was noted to have papillaedema on CT today as well as in August. He has hx of intracranial hypertension and is supposed to be taking Topamax, but hasn't been and never followed up with Dr. Deleon as scheduled to do. Dr. Guthrie as well and he never followed up. He reports recent long travel 19 hours in car and had some swelling in both legs, no pain. He reports seeing Dr Mercado 2-3 weeks ago and had chemical stress test, which he reports was negative. In the ED labwork WNL, Troponin negative. CXR negative. Head CT negative but again noted prominence of optic nerves bilaterall correlate with papillaedema. EKG paced rhythm. PCP, Dr Diez Chest Pain Score (Numeric/FACES): 6 - Related Data Allergies/Adverse Reactions: Allergies Allergy/AdvReac Type Severity Reaction Status Date / Time No Known Allergies Allergy Verified 12/23/16 13:38 Home Medications: Home Meds Losartan [Cozaar] 25 mg PO BID 07/15/16 [History] Spironolactone [Aldactone] 25 mg PO BID 07/15/16 [History] Insulin Detemir [Levemir Flextouch] 30 units SUBCUT BEDTIME 09/04/16 [History] Carvedilol 12.5 mg PO BIDMEALS 11/30/16 [History] DULoxetine [Cymbalta] 30 mg PO DAILY 11/30/16 [History] Insulin Aspart [NovoLOG] 35 unit SUBCUT TIDMEALS 11/30/16 [History] Ranolazine [Ranexa] 500 mg PO BID 11/30/16 [History] oxyCODONE HCl/Acetaminophen [Percocet 10-325 mg Tablet] 1 each PO Q6HR 11/30/16 [History] Isosorbide Mononitrate [Imdur] 60 mg PO DAILY 12/17/16 [History] Nitroglycerin 0.4 mg SL Q5M PRN 12/17/16 [History] Aspirin [Ecotrin] 325 mg PO DAILY 12/23/16 [History] DULoxetine [Cymbalta] 60 mg PO BEDTIME 12/23/16 [History] Omeprazole 40 mg PO ACBREAKFAST 12/23/16 [History] Past Medical History - Past Health History Medical/Surgical History: Denies Medical/Surgical History HEENT History: Reports: None Cardiovascular History: Reports: Angina, CAD, High Cholesterol, Heart Failure, Hypertension, [place], Other (See Below), Pacemaker Other Cardiovascular History: Valve Problem Respiratory History: Reports: Asthma Gastrointestinal History: Reports: GERD Genitourinary History: Reports: None Musculoskeletal History: Reports: Back Pain, Chronic Neurological History: Reports: Neuropathy, Diabetic Other Neuro History: Intracranial hypertension Psychiatric History: Reports: Depression Endocrine/Metabolic History: Reports: Diabetes, Type I Hematologic History: Reports: None Immunologic History: Reports: None Oncologic (Cancer) History: Reports: None Dermatologic History: Reports: None - Infectious Disease History Infectious Disease History: Reports: Chicken Pox, None - Past Surgical History Head Surgeries/Procedures: Reports: None Social & Family History - Family History Family Medical History: Noncontributory - Tobacco Use Smoking Status *Q: Unknown Ever Smoked Second Hand Smoke Exposure: Yes - Caffeine Use Caffeine Use: Reports: Coffee - Alcohol Use Days Per Week of Alcohol Use: 0 - Recreational Drug Use Recreational Drug Use: No H&P Review of Systems - Review of Systems: Review Of Systems: See Below General: Reports: No Symptoms. Denies: Fever, Chills, Malaise, Weakness Pulmonary: Reports: No Symptoms. Denies: Shortness of Breath Cardiovascular: Reports: Chest Pain (on deep breath and to palpation near pacemaker/ICD). Denies: Palpitations, Orthopnea, Edema, Lightheadedness Gastrointestinal: Reports: No Symptoms. Denies: Abdominal Pain, Nausea, Vomiting Musculoskeletal: Reports: No Symptoms. Denies: Neck Pain, Shoulder Pain Skin: Reports: No Symptoms Psychiatric: Reports: No Symptoms. Denies: Confusion Hematologic/Lymphatic: Reports: No Symptoms Immunologic: Reports: No Symptoms Exam - Exam Exam: See Below - Vital Signs Vital Signs: Last Vital Signs Temp 96.8 F 12/23/16 13:38 Pulse 72 12/23/16 14:45 Resp 16 12/23/16 13:38 BP 138/78 12/23/16 14:45 Pulse Ox 97 12/23/16 13:38 Weight: 85.6 kg - Exam General: Alert, Oriented, Cooperative HEENT: Conjunctiva Clear, Posterior Pharynx Clear Lungs: Clear to Auscultation, Normal Respiratory Effort Cardiovascular: Regular Rate, Regular Rhythm, Systolic Murmur, Other ( tenderness to palpation around pacemaker/ICD. Incision intact, healing well no erythema noted. ) GI/Abdominal Exam: Normal Bowel Sounds, Soft, Non-Tender, No Organomegaly, No Distention, No Abnormal Bruit, No Mass, Pelvis Stable Extremities: Normal Inspection, Normal Range of Motion, Non-Tender, No Pedal Edema, Normal Capillary Refill. No: Increased Warmth Neuro Extensive - Mental Status: Alert, Oriented x3, Normal Mood/Affect, Normal Cognition Psychiatric: Alert, Normal Affect, Normal Mood - Patient Data Result Diagrams: 12/23/16 13:50 12/23/16 13:50 *Q Meaningful Use (ADM) - VTE *Q VTE Criteria *Q: - Stroke *Q Stroke Criteria *Q: - AMI *Q AMI Criteria *Q: - Problem List (1) Chest pain SNOMED Code(s): 29847461 ICD Code: R07.9 - CHEST PAIN, UNSPECIFIED Status: Acute Current Visit: No QualifierTitle: Chest pain type: chest pain on breathing Qualified Code(s ): R07.1 - Chest pain on breathing; R07.81 - Pleurodynia (2) Intracranial hypertension SNOMED Code(s): 001945887 ICD Code: G93.2 - BENIGN INTRACRANIAL HYPERTENSION Status: Chronic Current Visit: Yes (3) Insulin dependent diabetes mellitus SNOMED Code(s): 50943122 ICD Code: E11.9 - TYPE 2 DIABETES MELLITUS WITHOUT COMPLICATIONS; Z79.4 - MCC (CURRENT) USE OF INSULIN Status: Chronic Current Visit: Yes (4) Hx of non-ST elevation myocardial infarction (NSTEMI) SNOMED Code(s): 566434342 ICD Code: I25.2 - OLD MYOCARDIAL INFARCTION Status: Chronic Current Visit : Yes (5) Hx of cardiac pacemaker SNOMED Code(s): 996745089 ICD Code: Z95.0 - PRESENCE OF CARDIAC PACEMAKER Status: Chronic Current Visit: Yes (6) History of coronary artery disease SNOMED Code(s): 202001206 ICD Code: Z86.79 - PERSONAL HISTORY OF OTHER DISEASES OF THE CIRCULATORY SYSTEM Status: Chronic Current Visit: No Problem List Initiated/Reviewed/Updated: Yes Orders Last 24hrs: Active Orders 24 hr Category Date Time Status Height and Weight [RC] DAILY Care 12/23/16 17:06 Ordered Intake and Output [RC] QSHIFT Care 12/23/16 17:06 Ordered Oxygen Therapy [RC] PRN Care 12/23/16 17:06 Ordered Telemetry Monitoring [Cardiac Monitoring] [RC] . Care 12/23/16 17:08 Ordered DIRECTED Up With Assistance [RC] ASDIRECTED Care 12/23/16 17:06 Ordered VTE/DVT Education [RC] PER UNIT ROUTINE Care 12/23/16 17:06 Ordered Vital Signs [RC] Q4H Care 12/23/16 17:06 Ordered 2 Gram Sodium Diet [DIET] Diet 12/23/16 Dinner Ordered TROPONIN I [CHEM] Q6H Lab 12/23/16 20:00 Ordered TROPONIN I [CHEM] Q6H Lab 12/24/16 02:00 Ordered Acetaminophen [Tylenol] Med 12/23/16 17:06 Ordered 650 mg PO Q4H PRN Ondansetron [Zofran] Med 12/23/16 17:06 Ordered 4 mg IVPUSH Q4H PRN Resuscitation Status Routine Resus Stat 12/23/16 17:06 Ordered Assessment/Plan Comment:: This 51 year old patient admitted with chest pain with breathing and palpation to chest near pacemaker 1. Chest pain: Monitor on telemetry. Paced rhythm. Will trend troponins. Likely pain is due to recently placed pacemaker and musculoskeletal. Encouraged him to follow up with Dr. Mercado. Pacemaker site has no erythema and incision healing nicely. Patient feeling better after morphine. D Dimer negative and Wells score low probability, 1.5. 2. IDDM: Continue home dosing of insulin and monitor BS with meals. 3. CAD: Continue Ranexa, ASA, Losartan, Coreg, and Imdur. 4. Intracranial hypertension: Did not follow up with Dr. Deleon after last appointment. Will get an appointment arranged prior to discharge. has not been taking Topamax as previously ordered. No currently vision concerns. VTE prophylaxis: SCDs Dispo: Likely discharge in am. <Olayinka Carreon - Last Filed: 12/23/16 22:26> H&P History of Present Illness - General Admit Problem/Dx: Admission Diagnosis/Problem Admission Diagnosis/Problem Chest pain, rule out acute myocardial infarction Exam - Vital Signs Vital Signs: Last Vital Signs Temp 36.2 C 12/23/16 20:00 Pulse 82 12/23/16 20:00 Resp 16 12/23/16 20:00 BP 117/67 12/23/16 20:00 Pulse Ox 95 12/23/16 20:00 - Patient Data Lab Results Last 24 hrs: Laboratory Results - last 24 hr 12/23/16 12/23/16 Range/Units 19:56 21:35 POC Glucose 334 H (60-110) mg/dL Troponin I < 0.10 (0.0-0.29) NG/ML Result Diagrams: 12/23/16 13:50 12/23/16 13:50 *Q Meaningful Use (ADM) - VTE *Q VTE Criteria *Q: - Stroke *Q Stroke Criteria *Q: - AMI *Q AMI Criteria *Q: Orders Last 24hrs: Active Orders 24 hr Category Date Time Status Blood Glucose Check, Bedside [RC] TIDAC Care 12/23/16 18:53 Active Cardiac Monitoring [RC] . DIRECTED Care 12/23/16 18:53 Active Height and Weight [RC] DAILY Care 12/23/16 17:06 Active Intake and Output [RC] Q12H Care 12/23/16 17:06 Active Oxygen Therapy [RC] PRN Care 12/23/16 17:06 Active Telemetry Monitoring [Cardiac Monitoring] [RC] . Care 12/23/16 17:08 Active DIRECTED Up With Assistance [RC] ASDIRECTED Care 12/23/16 17:06 Active Vital Signs [RC] Q4H Care 12/23/16 17:06 Active 2 Gram Sodium Diet [DIET] Diet 12/23/16 Dinner Active TROPONIN I [CHEM] Q6H Lab 12/24/16 02:00 Ordered Acetaminophen [Tylenol] Med 12/23/16 17:06 Active 650 mg PO Q4H PRN Acetaminophen/oxyCODONE [Percocet 325-5 MG] Med 12/23/16 19:22 Active 1 - 2 tab PO Q4H PRN Aspirin [Ecotrin] Med 12/24/16 09:00 Active 325 mg PO DAILY Carvedilol [Coreg] Med 12/24/16 08:00 Active 12.5 mg PO BIDMEALS DULoxetine [Cymbalta] Med 12/24/16 09:00 Active 30 mg PO DAILY DULoxetine [Cymbalta] Med 12/23/16 21:00 Active 60 mg PO BEDTIME Insulin Aspart [NovoLOG] Med 12/24/16 08:00 Active 35 unit SUBCUT TIDMEALS Insulin Detemir [Levemir] Med 12/23/16 21:00 Active 30 unit SUBCUT BEDTIME Isosorbide Mononitrate [Imdur] Med 12/24/16 09:00 Active 60 mg PO DAILY Losartan [Cozaar] Med 12/23/16 21:00 Active 25 mg PO BID Morphine Med 12/23/16 19:23 Active 2 mg IVPUSH Q4H PRN Nitroglycerin [Nitrostat] Med 12/23/16 18:52 Active 0.4 mg SL Q5M PRN Omeprazole Med 12/24/16 07:30 Active 40 mg PO ACBREAKFAST Ondansetron [Zofran] Med 12/23/16 17:06 Active 4 mg IVPUSH Q4H PRN Ranolazine [Ranexa] Med 12/23/16 21:00 Active 500 mg PO BID Spironolactone [Aldactone] Med 12/23/16 21:00 Active 25 mg PO BID Resuscitation Status Routine Resus Stat 12/23/16 17:06 Ordered Medication Orders Acetaminophen (Tylenol) 650 mg PO Q4H PRN PRN Reason: Pain Aspirin (Ecotrin) 325 mg PO DAILY [facility] Carvedilol (Coreg) 12.5 mg PO BIDMEALS [facility] Duloxetine HCl (Cymbalta) 30 mg PO DAILY [facility] Duloxetine HCl (Cymbalta) 60 mg PO BEDTIME [facility] Last Admin: 12/23/16 21:18 Dose: 60 mg Insulin Aspart (Novolog) 35 unit SUBCUT TIDMEALS [facility] Insulin Detemir (Levemir) 30 unit SUBCUT BEDTIME [facility] Last Admin: 12/23/16 21:51 Dose: 30 units Isosorbide Mononitrate (Imdur) 60 mg PO DAILY [facility] Losartan Potassium (Cozaar) 25 mg PO BID [facility] Last Admin: 12/23/16 21:18 Dose: 25 mg Morphine Sulfate (Morphine) 2 mg IVPUSH Q4H PRN PRN Reason: Pain Nitroglycerin (Nitrostat) 0.4 mg SL Q5M PRN PRN Reason: Chest Pain Omeprazole (Omeprazole) 40 mg PO ACBREAKFAST [facility] Ondansetron HCl (Zofran) 4 mg IVPUSH Q4H PRN PRN Reason: Nausea Oxycodone/Acetaminophen (Percocet 325-5 Mg) 1 - 2 tab PO Q4H PRN PRN Reason: Pain Last Admin: 12/23/16 21:49 Dose: 2 tab Ranolazine (Ranexa) 500 mg PO BID [facility] Last Admin: 12/23/16 21:18 Dose: 500 mg Spironolactone (Aldactone) 25 mg PO BID [facility] Last Admin: 12/23/16 21:18 Dose: 25 mg - Free Text/Narrative Note: Dr. Carreon writes: I have taken history from, examined, evaluated laboratories and other data, have read over Mindi CHAN's evaluation and right upper and concur with her assessments and plan.
[2016-12-23] MEDS ORDERED: Nitroglycerin 0.4 MG Tab.SL SL PRN (18:52)
[2016-12-23] MEDS: Losartan 50 MG Tab PO SCH (21:18)
[2016-12-23] MEDS: Spironolactone 25 MG Tab PO SCH (21:18)
[2016-12-23] MEDS: DULoxetine 60 MG Cap PO SCH (21:18)
[2016-12-23] MEDS: Acetaminophen/oxyCODONE 325-5 MG Tab PO PRN (21:49)
[2016-12-23] MEDS: Insulin Detemir 100 Units/ML 3 ML Pen SUBCUT SCH (21:51)
[2016-12-24] MEDS: Acetaminophen/oxyCODONE 325-5 MG Tab PO PRN ×4 (04:53→22:33)
[2016-12-24] MEDS: Morphine 2 MG/ML Syringe IVPUSH PRN ×2 (06:48→20:35)
[2016-12-24] MEDS: Carvedilol 12.5 MG Tab PO SCH ×2 (07:57→18:12)
[2016-12-24] MEDS: Omeprazole 20 MG Cap.CR PO SCH (07:58)
[2016-12-24] MEDS ORDERED: Insulin Aspart 100 Units/ML 3 ML Pen SUBCUT SCH (08:00)
[2016-12-24] MEDS ORDERED: Morphine 4 MG/ML Syringe IVPUSH ONE (08:15)
[2016-12-24] MEDS: Isosorbide Mononitrate 60 MG Tab.ER PO SCH (09:02)
[2016-12-24] MEDS: Aspirin 325 MG Tab.EC PO SCH (09:02)
[2016-12-24] MEDS: Spironolactone 25 MG Tab PO SCH ×2 (09:02→20:27)
[2016-12-24] MEDS: Losartan 50 MG Tab PO SCH ×2 (09:03→20:28)
[2016-12-24] MEDS: DULoxetine 30 MG Cap PO SCH (09:03)
[2016-12-24] MEDS ORDERED: 50% Dextrose in Water 50 ML Syringe IVPUSH ONE (11:58)
--- NOTE | 2016-12-24 11:59 | PCM.PN ---
<Katy Chaudhari M - Last Filed: 12/24/16 13:45> - General Info Date of Service: 12/24/16 Admission Dx/Problem (Free Text): Admission Diagnosis/Problem Admission Diagnosis/Problem Chest pain, rule out acute myocardial infarction Subjective Update: Continues to have some chest pain, but this is likely due to musculoskeletal concerns. 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 No SOB or other concerns. Functional Status: Reports: Pain Controlled - Review of Systems General: Reports: No Symptoms. Denies: Fever HEENT: Reports: No Symptoms. Denies: Dysphasia, Visual Changes Pulmonary: Reports: No Symptoms. Denies: Shortness of Breath, Sputum, Hemoptysis Cardiovascular: Reports: Chest Pain (musculoskeletal). Denies: Palpitations Gastrointestinal: Reports: No Symptoms. Denies: Abdominal Pain Genitourinary: Reports: No Symptoms. Denies: Dysuria, Frequency, Burning Psychiatric: Reports: No Symptoms. Denies: Confusion - Patient Data Vitals - Most Recent: Last Vital Signs Temp 96.8 F 12/24/16 11:38 Pulse 80 12/24/16 11:38 Resp 20 12/24/16 11:38 BP 116/74 12/24/16 11:38 Pulse Ox 97 12/24/16 11:38 Weight - Most Recent: 83.4 kg I&O - Last 24 Hours: Intake & Output 12/23/16 12/24/16 12/24/16 22:59 06:59 14:59 Output Total 1100 Balance -1100 Lab Results Last 24 Hours: Laboratory Results - last 24 hr 12/23/16 12/23/16 12/23/16 Range/Units 18:46 19:56 21:35 POC Glucose 81 334 H (60-110) mg/dL Troponin I < 0.10 (0.0-0.29) NG/ML 12/24/16 12/24/16 12/24/16 Range/Units 01:51 05:54 07:56 POC Glucose 225 H 275 H (60-110) mg/dL Troponin I < 0.10 (0.0-0.29) NG/ML 12/24/16 Range/Units 10:58 POC Glucose 31 L (60-110) mg/dL Troponin I (0.0-0.29) NG/ML Med Orders - Current: Current Medications Acetaminophen (Tylenol) 650 mg PO Q4H PRN PRN Reason: Pain Aspirin (Ecotrin) 325 mg PO DAILY [facility] Last Admin: 12/24/16 09:02 Dose: 325 mg Carvedilol (Coreg) 12.5 mg PO BIDMEALS [facility] Last Admin: 12/24/16 07:57 Dose: 12.5 mg Dextrose/Water (Dextrose 50% In Water) 50 ml IVPUSH ONETIME ONE Stop: 12/24/16 11:59 Duloxetine HCl (Cymbalta) 30 mg PO DAILY [facility] Last Admin: 12/24/16 09:03 Dose: 30 mg Duloxetine HCl (Cymbalta) 60 mg PO BEDTIME [facility] Last Admin: 12/23/16 21:18 Dose: 60 mg Insulin Aspart (Novolog) 35 unit SUBCUT TIDMEALS [facility] Last Admin: 12/24/16 08:08 Dose: 35 units Insulin Detemir (Levemir) 30 unit SUBCUT BEDTIME [facility] Last Admin: 12/23/16 21:51 Dose: 30 units Isosorbide Mononitrate (Imdur) 60 mg PO DAILY [facility] Last Admin: 12/24/16 09:02 Dose: 60 mg Losartan Potassium (Cozaar) 25 mg PO BID [facility] Last Admin: 12/24/16 09:03 Dose: 25 mg Morphine Sulfate (Morphine) 2 mg IVPUSH Q4H PRN PRN Reason: Pain Last Admin: 12/24/16 06:48 Dose: 2 mg Nitroglycerin (Nitrostat) 0.4 mg SL Q5M PRN PRN Reason: Chest Pain Omeprazole (Omeprazole) 40 mg PO ACBREAKFAST [facility] Last Admin: 12/24/16 07:58 Dose: 40 mg Ondansetron HCl (Zofran) 4 mg IVPUSH Q4H PRN PRN Reason: Nausea Oxycodone/Acetaminophen (Percocet 325-5 Mg) 1 - 2 tab PO Q4H PRN PRN Reason: Pain Last Admin: 12/24/16 04:53 Dose: 2 tab Ranolazine (Ranexa) 500 mg PO BID [facility] Last Admin: 12/24/16 09:01 Dose: 500 mg Spironolactone (Aldactone) 25 mg PO BID [facility] Last Admin: 12/24/16 09:02 Dose: 25 mg Discontinued Medications Aspirin (Aspirin) 324 mg PO ONETIME ONE Stop: 12/23/16 13:43 Last Admin: 12/23/16 14:24 Dose: 324 mg Sodium Chloride (Normal Saline) 1,000 mls @ 999 mls/hr IV STAT ONE Stop: 12/23/16 14:42 Last Admin: 12/23/16 14:24 Dose: 999 mls/hr Morphine Sulfate (Morphine) 2 mg IVPUSH ONETIME ONE Stop: 12/23/16 14:40 Last Admin: 12/23/16 15:01 Dose: 2 mg Morphine Sulfate (Morphine) 3 mg IVPUSH ONETIME ONE Stop: 12/24/16 08:16 Last Admin: 12/24/16 08:29 Dose: 3 mg - Exam General: Alert, Oriented, Cooperative Lungs: Clear to Auscultation, Normal Respiratory Effort Cardiovascular: Regular Rate, Regular Rhythm, Other (tenderness around ICD) GI/Abdominal Exam: Normal Bowel Sounds, Soft, Non-Tender, No Organomegaly, No Distention, No Abnormal Bruit, No Mass, Pelvis Stable Wound/Incisions: Healing Well Neurological: No New Focal Deficit - Problem List & Annotations (1) Chest pain SNOMED Code(s): 41201458 Code(s): R07.9 - CHEST PAIN, UNSPECIFIED Status: Acute Current Visit: No QualifierTitle: Chest pain type: chest pain on breathing Qualified Code(s ): R07.1 - Chest pain on breathing; R07.81 - Pleurodynia (2) Intracranial hypertension SNOMED Code(s): 983532558 Code(s): G93.2 - BENIGN INTRACRANIAL HYPERTENSION Status: Chronic Current Visit: Yes (3) Insulin dependent diabetes mellitus SNOMED Code(s): 61634455 Code(s): E11.9 - TYPE 2 DIABETES MELLITUS WITHOUT COMPLICATIONS; 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: Chronic Current Visit: Yes (4) Hx of non-ST elevation myocardial infarction (NSTEMI) SNOMED Code(s): 708954480 Code(s): I25.2 - OLD MYOCARDIAL INFARCTION Status: Chronic Current Visit : Yes (5) Hx of cardiac pacemaker SNOMED Code(s): 626439001 Code(s): Z95.0 - PRESENCE OF CARDIAC PACEMAKER Status: Chronic Current Visit: Yes (6) History of coronary artery disease SNOMED Code(s): 348586194 Code(s): Z86.79 - PERSONAL HISTORY OF OTHER DISEASES OF THE CIRCULATORY SYSTEM Status: Chronic Current Visit: No - Problem List Review Problem List Initiated/Reviewed/Updated: Yes - My Orders Last 24 Hours: My Active Orders 12/23/16 17:06 Height and Weight [RC] DAILY Intake and Output [RC] Q12H Oxygen Therapy [RC] PRN Up With Assistance [RC] ASDIRECTED Vital Signs [RC] Q4H Acetaminophen [Tylenol] 650 mg PO Q4H PRN Ondansetron [Zofran] 4 mg IVPUSH Q4H PRN Resuscitation Status Routine 12/23/16 18:52 Nitroglycerin [Nitrostat] 0.4 mg SL Q5M PRN 12/23/16 18:53 Blood Glucose Check, Bedside [RC] TIDAC 12/23/16 19:22 Acetaminophen/oxyCODONE [Percocet 325-5 MG] 1 - 2 tab PO Q4H PRN 12/23/16 19:23 Morphine 2 mg IVPUSH Q4H PRN 12/23/16 21:00 DULoxetine [Cymbalta] 60 mg PO BEDTIME Insulin Detemir [Levemir] 30 unit SUBCUT BEDTIME Losartan [Cozaar] 25 mg PO BID Ranolazine [Ranexa] 500 mg PO BID Spironolactone [Aldactone] 25 mg PO BID 12/23/16 Dinner 2 Gram Sodium Diet [DIET] 12/24/16 07:30 Omeprazole 40 mg PO ACBREAKFAST 12/24/16 08:00 Carvedilol [Coreg] 12.5 mg PO BIDMEALS Insulin Aspart [NovoLOG] 35 unit SUBCUT TIDMEALS 12/24/16 09:00 Aspirin [Ecotrin] 325 mg PO DAILY DULoxetine [Cymbalta] 30 mg PO DAILY Isosorbide Mononitrate [Imdur] 60 mg PO DAILY 12/24/16 09:52 Communication Order [RC] PER UNIT ROUTINE 12/24/16 10:55 EKG 12 Lead [EKG Documentation Completion] [RC] STAT 12/24/16 11:58 Consult to DM [Consult to Diabetic Nurse Specialist] [CONS] Routine Dextrose 50% in Water 50 ml IVPUSH ONETIME ONE - Plan Plan:: This 51 year old patient admitted with chest pain with breathing and palpation to chest near pacemaker 1. Chest pain: Likely due to increased activity and heavy lift with newly placed pacemaker/ICD. Troponins negative. Will be encouraged to decrease activity and remain light duty until more healed and follow up with Dr. Mercado in [place]. AV Paced rhythm. 2. IDDM: Hypoglycemia noted this am. Did not eat much for breakfast and got his normal 35 unit novolog. Patient was noted to be lethargic and diaphoretic. BS noted to be 31. He was given D50 1 amp and increased to 140s. He then dipped to 51 again, we again gave D50 1 amp and went to 150s. He ate lunch and is feeling much better. Will consult DM educator to help with dosing. Hold SSI and Levemir for now. 3. CAD: Continue Ranexa, ASA, Losartan, Coreg, and Imdur. 4. Intracranial hypertension: Did not follow up with Dr. Deleon after last appointment. Will get an appointment arranged prior to discharge. has not been taking Topamax as previously ordered. No currently vision concerns. VTE prophylaxis: SCDs Dispo: Likely discharge in am. Monitor BS overnight due to hypoglycemic event. <Olayinka Carreon - Last Filed: 12/24/16 19:51> - Patient Data Vitals - Most Recent: Last Vital Signs Temp 36.2 C 12/24/16 16:03 Pulse 87 12/24/16 18:12 Resp 16 12/24/16 16:03 BP 95/56 L 12/24/16 18:12 Pulse Ox 97 12/24/16 17:06 I&O - Last 24 Hours: Intake & Output 12/24/16 12/24/16 12/24/16 06:59 14:59 22:59 Intake Total 1530 Output Total 1100 300 Balance -1100 1230 Lab Results Last 24 Hours: Laboratory Results - last 24 hr 12/23/16 12/23/16 12/23/16 Range/Units 18:46 19:56 21:35 POC Glucose 81 334 H (60-110) mg/dL Troponin I < 0.10 (0.0-0.29) NG/ML 12/24/16 12/24/16 12/24/16 Range/Units 01:51 05:54 07:56 POC Glucose 225 H 275 H (60-110) mg/dL Troponin I < 0.10 (0.0-0.29) NG/ML 12/24/16 12/24/16 12/24/16 Range/Units 10:58 11:08 11:46 POC Glucose 31 L 143 H 53 L (60-110) mg/dL Troponin I (0.0-0.29) NG/ML 12/24/16 12/24/16 12/24/16 Range/Units 12:22 13:21 14:34 POC Glucose 152 H 68 145 H (60-110) mg/dL Troponin I (0.0-0.29) NG/ML 12/24/16 Range/Units 16:18 POC Glucose 118 H (60-110) mg/dL Troponin I (0.0-0.29) NG/ML Med Orders - Current: Current Medications Acetaminophen (Tylenol) 650 mg PO Q4H PRN PRN Reason: Pain Aspirin (Ecotrin) 325 mg PO DAILY [facility] Last Admin: 12/24/16 09:02 Dose: 325 mg Carvedilol (Coreg) 12.5 mg PO BIDMEALS [facility] Last Admin: 12/24/16 18:12 Dose: Not Given Docusate Sodium (Colace) 100 mg PO BID PRN PRN Reason: Constipation Last Admin: 12/24/16 19:24 Dose: 100 mg Duloxetine HCl (Cymbalta) 30 mg PO DAILY [facility] Last Admin: 12/24/16 09:03 Dose: 30 mg Duloxetine HCl (Cymbalta) 60 mg PO BEDTIME [facility] Last Admin: 12/23/16 21:18 Dose: 60 mg Insulin Detemir (Levemir) 30 unit SUBCUT BEDTIME [facility] Last Admin: 12/23/16 21:51 Dose: 30 units Isosorbide Mononitrate (Imdur) 60 mg PO DAILY [facility] Last Admin: 12/24/16 09:02 Dose: 60 mg Losartan Potassium (Cozaar) 25 mg PO BID [facility] Last Admin: 12/24/16 09:03 Dose: 25 mg Morphine Sulfate (Morphine) 2 mg IVPUSH Q4H PRN PRN Reason: Pain Last Admin: 12/24/16 06:48 Dose: 2 mg Nitroglycerin (Nitrostat) 0.4 mg SL Q5M PRN PRN Reason: Chest Pain Omeprazole (Omeprazole) 40 mg PO ACBREAKFAST [facility] Last Admin: 12/24/16 07:58 Dose: 40 mg Ondansetron HCl (Zofran) 4 mg IVPUSH Q4H PRN PRN Reason: Nausea Oxycodone/Acetaminophen (Percocet 325-5 Mg) 1 - 2 tab PO Q4H PRN PRN Reason: Pain Last Admin: 12/24/16 18:13 Dose: 2 tab Ranolazine (Ranexa) 500 mg PO BID [facility] Last Admin: 12/24/16 09:01 Dose: 500 mg Spironolactone (Aldactone) 25 mg PO BID [facility] Last Admin: 12/24/16 09:02 Dose: 25 mg Discontinued Medications Aspirin (Aspirin) 324 mg PO ONETIME ONE Stop: 12/23/16 13:43 Last Admin: 12/23/16 14:24 Dose: 324 mg Dextrose/Water (Dextrose 50% In Water) 50 ml IVPUSH ONETIME ONE Stop: 12/24/16 11:59 Last Admin: 12/24/16 12:04 Dose: 50 ml Sodium Chloride (Normal Saline) 1,000 mls @ 999 mls/hr IV STAT ONE Stop: 12/23/16 14:42 Last Admin: 12/23/16 14:24 Dose: 999 mls/hr Insulin Aspart (Novolog) 35 unit SUBCUT TIDMEALS [facility] Last Admin: 12/24/16 08:08 Dose: 35 units Morphine Sulfate (Morphine) 2 mg IVPUSH ONETIME ONE Stop: 12/23/16 14:40 Last Admin: 12/23/16 15:01 Dose: 2 mg Morphine Sulfate (Morphine) 3 mg IVPUSH ONETIME ONE Stop: 12/24/16 08:16 Last Admin: 12/24/16 08:29 Dose: 3 mg - My Orders Last 24 Hours: My Active Orders 12/24/16 16:27 Communication Order [RC] PER UNIT ROUTINE 12/24/16 18:48 Docusate Sodium [Colace] 100 mg PO BID PRN - Free Text/Narrative Note: Dr. Carreon writes: I have examined this patient today and have reviewed his data and care with Katy CHAN. As Ms. Chaudhari and I came to his bedside this morning, he was found to be diaphoretic and became noncommunicative. A rapid response was called to get vitals and glucose. He was found to have a glucose of 31. 1 amp of D50 was given IVand further glucose monitoring was done, resulting in a second amp of D50 being give IV with his recovery and ability to communicate returned. We discussed further plans and I concur with her note and plan.
--- NOTE | 2016-12-24 15:08 | PCM.PRNOTE ---
- Free Text/Narrative Note: Device re-programming Last interrogation 12/26/2016 [employer] Model Richard Carrillo MP [id number] SHIP PILOT-D Mode DDDD LRL 60 bpm % paced BP 98% intrinsic rhythm SR Battery life 6.4-6.7 yrs Atrial lead sensing: > 5 mV capture threshold: 1 mV@ 0.4 ms impedance: 440 ohms Right Ventricular lead sensing: > 12 mV capture threshold: < 0.25 mV @ 0.4 ms impedance:480 ohms Left Ventricular lead sensing: NA capture threshold: 2.25 mV @ 0.4 ms impedance: 780 ohms M3-M2 episode: no ICD therapies VT 171-214 ATP x 3, ATP x 3, 30J, 40J x 2 VF > 214 ATP x 1, 30J, 40J, 40J x 4 Imp high LV capture threshold, otherwise no episodes of arrhythmia, or ICD therapies Plan recommend recheck SHIP PILOT-D, and adjust device setting for LV threshold 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
[2016-12-24] MEDS ORDERED: Docusate Sodium 100 MG Cap PO PRN (18:48)
[2016-12-24] MEDS: DULoxetine 60 MG Cap PO SCH (20:27)
[2016-12-24] MEDS: Insulin Detemir 100 Units/ML 3 ML Pen SUBCUT SCH (20:31)
[2016-12-25] MEDS ORDERED: Insulin Aspart 100 Units/ML 3 ML Pen SUBCUT ONE (01:24)
[2016-12-25] MEDS: Morphine 2 MG/ML Syringe IVPUSH PRN ×2 (04:01→08:06)
[2016-12-25] MEDS: Omeprazole 20 MG Cap.CR PO SCH (06:59)
[2016-12-25] MEDS ORDERED: Insulin Aspart 100 Units/ML 3 ML Pen SUBCUT SCH (07:45)
[2016-12-25 07:54] VITALS: BP 120/68
[2016-12-25] MEDS: Carvedilol 12.5 MG Tab PO SCH (07:54)
[2016-12-25] MEDS: Losartan 50 MG Tab PO SCH (08:06)
[2016-12-25] MEDS: Isosorbide Mononitrate 60 MG Tab.ER PO SCH (08:07)
[2016-12-25] MEDS: Spironolactone 25 MG Tab PO SCH (08:07)
[2016-12-25] MEDS: Aspirin 325 MG Tab.EC PO SCH (08:08)
[2016-12-25] MEDS: DULoxetine 30 MG Cap PO SCH (08:08)
--- NOTE | 2016-12-25 10:20 | PCM.DCSUM1 ---
Discharge Summary - Hospital Course Brief History: This 51 year old male with pmh of recent pacemaker/ICD placement in [place] in October, Insulin dependent DM, CAD, NSTEMI in July 2016, and intracranial hypertension presented to the ED this morning with L anterior chest pain. He reports this pain started when he woke up at 6:00 am. He reports it hurts worse with deep breathing and pressing just right of his pacemaker. He denies cough, or hemoptysis. No dyspnea noted. He was admitted for chest pain and transient AMS in August 2016 here, he was noted to be non-complaint with medications and follow up after that visit. He was noted to have papillaedema on CT today as well as in August. He has hx of intracranial hypertension and is supposed to be taking Topamax, but hasn't been and never followed up with Dr. Deleon as scheduled to do. Dr. Guthrie as well and he never followed up. He reports recent long travel 19 hours in car and had some swelling in both legs, no pain. He reports seeing Dr Mercado 2-3 weeks ago and had chemical stress test, which he reports was negative. In the ED labwork WNL, Troponin negative. CXR negative. Head CT negative but again noted prominence of optic nerves bilaterall correlate with papillaedema. EKG paced rhythm. - Discharge Data Discharge Date: 12/25/16 Discharge Disposition: Home, Self-Care 01 Condition: Good - Discharge Diagnosis/Problem(s) (1) Chest pain SNOMED Code(s): 34792904 ICD Code: R07.9 - CHEST PAIN, UNSPECIFIED Status: Acute Qualifiers: Chest pain type: chest pain on breathing Qualified Code(s): R07.1 - Chest pain on breathing; R07.81 - Pleurodynia (2) Intracranial hypertension SNOMED Code(s): 569904396 ICD Code: G93.2 - BENIGN INTRACRANIAL HYPERTENSION Status: Chronic (3) Insulin dependent diabetes mellitus SNOMED Code(s): 69542430 ICD Code: E11.9 - TYPE 2 DIABETES MELLITUS WITHOUT COMPLICATIONS; Z79.4 - LONGTERM (CURRENT) USE OF INSULIN Status: Chronic (4) Hx of non-ST elevation myocardial infarction (NSTEMI) SNOMED Code(s): 162586462 ICD Code: I25.2 - OLD MYOCARDIAL INFARCTION Status: Chronic (5) Hx of cardiac pacemaker SNOMED Code(s): 853510586 ICD Code: Z95.0 - PRESENCE OF CARDIAC PACEMAKER Status: Chronic (6) History of coronary artery disease SNOMED Code(s): 867512942 ICD Code: Z86.79 - PERSONAL HISTORY OF OTHER DISEASES OF THE CIRCULATORY SYSTEM Status: Chronic - Patient Summary/Data Consults: Consultations 12/24/16 11:58 Consult to DM [Consult to Diabetic Nurse Specialist] [CONS] Routine - Patient Instructions Diet: Heart Healthy Diet, Diabetic Diet Activity: As Tolerated Showering/Bathing: May Shower Notify Provider of: Fever, Increased Pain, Swelling and Redness, Drainage, Nausea and/or Vomiting - Discharge Plan Prescriptions/Med Rec: oxyCODONE HCl/Acetaminophen [Percocet 10-325 mg Tablet] 1 each PO Q6HR #20 tablet Home Medications: Home Meds Losartan [Cozaar] 25 mg PO BID 07/15/16 [History] Spironolactone [Aldactone] 25 mg PO BID 07/15/16 [History] Insulin Detemir [Levemir Flextouch] 30 units SUBCUT BEDTIME 09/04/16 [History] Carvedilol 12.5 mg PO BIDMEALS 11/30/16 [History] DULoxetine [Cymbalta] 30 mg PO DAILY 11/30/16 [History] Ranolazine [Ranexa] 500 mg PO BID 11/30/16 [History] Isosorbide Mononitrate [Imdur] 60 mg PO DAILY 12/17/16 [History] Nitroglycerin 0.4 mg SL Q5M PRN 12/17/16 [History] Aspirin [Ecotrin] 325 mg PO DAILY 12/23/16 [History] DULoxetine [Cymbalta] 60 mg PO BEDTIME 12/23/16 [History] Omeprazole 40 mg PO ACBREAKFAST 12/23/16 [History] Insulin Aspart [NovoLOG] See Protocol SUBCUT TIDMEALS #0 12/25/16 [Rx] oxyCODONE HCl/Acetaminophen [Percocet 10-325 mg Tablet] 1 each PO Q6HR #20 tablet 12/25/16 [Rx] Patient Handouts: Acetaminophen; Oxycodone tablets, Nonspecific Chest Pain Referrals: Antoine Mercado MD [Ordering Only Provider] - 01/01/17 9:45 am (Dr Mercado is with [facility] Christal Deleon MD [Physician] - 02/03/17 8:00 am Elder Diez MD [Primary Care Provider] - 12/27/16 9:30 am - Discharge Summary/Plan Comment DC Time >30 min.: No Discharge Summary/Plan Comment: Discharge diagnoses: Atypical chest pain Hypoglycemia recent pacemaker/ICD CAD CHF DM type 1 Hx intracranial hypertension Shirley was admitted for left sided chest pain, ACS was ruled out. EKG AV paced and troponins negative. Chest pain was located around ICD and pain was reproducible with palpation to chest wall around this. 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 During his stay he had hypoglycemic episode, he was monitored overnight to ensure he was stable and today he will be discharged home. He did meet with DM educator and insulin dosing was corrected. He is to follow up with Dr. Mercado for ICD, CHF. He is also to follow up with Dr Deleon regarding his hx of intracranial hypertension, he has stopped taking his Topamax and currently has no visual concerns. He is to return to ED if concerns should arise. He was encouraged restricted to no lifting at work, light duty. Note provided for employer, until further cleared by Dr Mercado. I gave him a prescription for Percocet 10/325 1 tab by mouth every 6 hours PRN #20 tabs no refills. - General Info Date of Service: 12/25/16 Admission Dx/Problem (Free Text: Admission Diagnosis/Problem Admission Diagnosis/Problem Chest pain, rule out acute myocardial infarction Subjective Update: Doing well this am, no concerns. Denies chest pain, some tenderness around ICD. No further hypoglycemia. Functional Status: Reports: Pain Controlled, Tolerating Diet, Ambulating, Urinating - Review of Systems General: Reports: No Symptoms. Denies: Fever HEENT: Reports: No Symptoms. Denies: Headaches, Sinus Congestion, Visual Changes Pulmonary: Reports: No Symptoms. Denies: Shortness of Breath Cardiovascular: Reports: No Symptoms Gastrointestinal: Reports: No Symptoms. Denies: Abdominal Pain, Difficulty Swallowing Genitourinary: Reports: No Symptoms Musculoskeletal: Reports: No Symptoms Skin: Reports: No Symptoms Neurological: Reports: No Symptoms Psychiatric: Reports: No Symptoms - Patient Data Vitals - Most Recent: Last Vital Signs Temp 96.7 F 12/25/16 08:00 Pulse 87 12/25/16 08:00 Resp 16 12/25/16 08:00 BP 120/68 12/25/16 08:06 Pulse Ox 92 L 12/25/16 08:00 Weight - Most Recent: 83.6 kg I&O - Last 24 hours: Intake & Output 12/24/16 12/25/16 12/25/16 22:59 06:59 14:59 Intake Total 1530 1600 Output Total 300 1850 Balance 1230 -250 Lab Results - Last 24 hrs: Laboratory Results - last 24 hr 12/24/16 12/24/16 12/24/16 Range/Units 10:58 11:08 11:46 POC Glucose 31 L 143 H 53 L (60-110) mg/dL 12/24/16 12/24/16 12/24/16 Range/Units 12:22 13:21 14:34 POC Glucose 152 H 68 145 H (60-110) mg/dL 12/24/16 12/24/16 12/24/16 Range/Units 16:18 18:02 20:22 POC Glucose 118 H 341 H 384 H (60-110) mg/dL 12/25/16 12/25/16 12/25/16 Range/Units 01:08 01:16 04:00 POC Glucose 396 H 394 H 355 H (60-110) mg/dL Med Orders - Current: Current Medications Acetaminophen (Tylenol) 650 mg PO Q4H PRN PRN Reason: Pain Aspirin (Ecotrin) 325 mg PO DAILY [facility] Last Admin: 12/25/16 08:08 Dose: 325 mg Carvedilol (Coreg) 12.5 mg PO BIDMEALS [facility] Last Admin: 12/25/16 07:54 Dose: 12.5 mg Docusate Sodium (Colace) 100 mg PO BID PRN PRN Reason: Constipation Last Admin: 12/24/16 19:24 Dose: 100 mg Duloxetine HCl (Cymbalta) 30 mg PO DAILY [facility] Last Admin: 12/25/16 08:08 Dose: 30 mg Duloxetine HCl (Cymbalta) 60 mg PO BEDTIME [facility] Last Admin: 12/24/16 20:27 Dose: 60 mg Insulin Aspart (Novolog) 0 unit SUBCUT TIDAC [facility] PRN Reason: Protocol Last Admin: 12/25/16 07:45 Dose: 10 units Insulin Detemir (Levemir) 30 unit SUBCUT BEDTIME [facility] Last Admin: 12/24/16 20:31 Dose: 30 units Isosorbide Mononitrate (Imdur) 60 mg PO DAILY [facility] Last Admin: 12/25/16 08:07 Dose: 60 mg Losartan Potassium (Cozaar) 25 mg PO BID [facility] Last Admin: 12/25/16 08:06 Dose: 25 mg Morphine Sulfate (Morphine) 2 mg IVPUSH Q4H PRN PRN Reason: Pain Last Admin: 12/25/16 08:06 Dose: 2 mg Nitroglycerin (Nitrostat) 0.4 mg SL Q5M PRN PRN Reason: Chest Pain Omeprazole (Omeprazole) 40 mg PO ACBREAKFAST [facility] Last Admin: 12/25/16 06:59 Dose: 40 mg Ondansetron HCl (Zofran) 4 mg IVPUSH Q4H PRN PRN Reason: Nausea Oxycodone/Acetaminophen (Percocet 325-5 Mg) 1 - 2 tab PO Q4H PRN PRN Reason: Pain Last Admin: 12/24/16 22:33 Dose: 2 tab Ranolazine (Ranexa) 500 mg PO BID [facility] Last Admin: 12/25/16 08:07 Dose: 500 mg Spironolactone (Aldactone) 25 mg PO BID [facility] Last Admin: 12/25/16 08:07 Dose: 25 mg Discontinued Medications Aspirin (Aspirin) 324 mg PO ONETIME ONE Stop: 12/23/16 13:43 Last Admin: 12/23/16 14:24 Dose: 324 mg Dextrose/Water (Dextrose 50% In Water) 50 ml IVPUSH ONETIME ONE Stop: 12/24/16 11:59 Last Admin: 12/24/16 12:04 Dose: 50 ml Sodium Chloride (Normal Saline) 1,000 mls @ 999 mls/hr IV STAT ONE Stop: 12/23/16 14:42 Last Admin: 12/23/16 14:24 Dose: 999 mls/hr Insulin Aspart (Novolog) 35 unit SUBCUT TIDMEALS [facility] Last Admin: 12/24/16 08:08 Dose: 35 units Insulin Aspart (Novolog) 5 unit SUBCUT ONETIME ONE Stop: 12/25/16 01:25 Last Admin: 12/25/16 01:32 Dose: 5 unit Morphine Sulfate (Morphine) 2 mg IVPUSH ONETIME ONE Stop: 12/23/16 14:40 Last Admin: 12/23/16 15:01 Dose: 2 mg Morphine Sulfate (Morphine) 3 mg IVPUSH ONETIME ONE Stop: 12/24/16 08:16 Last Admin: 12/24/16 08:29 Dose: 3 mg - Exam General: Reports: Alert, Oriented, Cooperative, No Acute Distress Neck: Reports: Supple Lungs: Reports: Clear to Auscultation, Normal Respiratory Effort Cardiovascular: Reports: Regular Rate, Regular Rhythm GI/Abdominal Exam: Normal Bowel Sounds, Soft, Non-Tender, No Organomegaly, No Distention, No Abnormal Bruit, No Mass, Pelvis Stable Wound/Incisions: Reports: Healing Well Neurological: Reports: No New Focal Deficit *Q Meaningful Use (DIS) - VTE *Q VTE Criteria *Q: - Stroke *Q Stroke Criteria *Q: - AMI *Q AMI Criteria *Q:
== END 2016-12-25 10:25 | disposition home or self-care (01) ==
LOC: MW.ED 13:24 → MW.MS 16:08
PROVIDERS: ADMIT Family Medicine; ATTEND Family Medicine
DX: R07.89 Other chest pain (principal); G93.2 Benign intracranial hypertension; E10.649 Type 1 diabetes mellitus with hypoglycemia without coma; I25.2 Old myocardial infarction; I25.10 Atherosclerotic heart disease of native coronary artery without angina pectoris; I11.0 Hypertensive heart disease with heart failure; I50.9 Heart failure, unspecified; E78.00 Pure hypercholesterolemia, unspecified; J45.909 Unspecified asthma, uncomplicated; K21.9 Gastro-esophageal reflux disease without esophagitis; E10.40 Type 1 diabetes mellitus with diabetic neuropathy, unspecified; Z79.4 Long term (current) use of insulin; Z79.82 Long term (current) use of aspirin; Z79.899 Other long term (current) drug therapy; Z95.0 Presence of cardiac pacemaker
CPT/HCPCS: 36415; 70450; 71010; 80053; 81001; 82150; 82550; 82553; 82962; 83690; 84484; 85025; 85379; 93005; 96361; 96374; 96375; 96376; 99285; A9270; G0378; J1815; J2270; J7040; J7060; 99284

== ENCOUNTER 2016-12-26 22:53 | Emergency (ER) | payer MEDICAID, OTHER ==
--- NOTE | 2016-12-26 23:08 | EDM.PDOC ---
ED HPI GENERAL MEDICAL PROBLEM - General Chief Complaint: Chest Pain Stated Complaint: PT HAS CHEST PAIN Time Seen by Provider: 12/26/16 23:05 - History of Present Illness INITIAL COMMENTS - FREE TEXT/NARRATIVE: HISTORY AND PHYSICAL: History of present illness: Patient 51-year-old white male presents with concern chest pain is vaguely described he's had similar episodes times none prior including prior ER visits and admission he denies associated shortness of breath palpitations nausea vomiting or diaphoresis Review of systems: As per history of present illness and below otherwise all systems reviewed and negative. Past medical history: As per history of present illness and as reviewed below otherwise noncontributory. Surgical history: As per history of present illness and as reviewed below otherwise noncontributory. Social history: No reported history of drug or alcohol abuse. Family history: As per history of present illness and as reviewed below otherwise noncontributory. Physical exam: HEENT: Atraumatic, normocephalic, pupils reactive, negative for conjunctival pallor or scleral icterus, mucous membranes moist, throat clear, neck supple, nontender, trachea midline. Lungs: Clear to auscultation, breath sounds equal bilaterally, chest nontender. Heart: S1S2, regular, negative for clicks, rubs, or JVD. Abdomen: Soft, nondistended, nontender. Negative for masses or hepatosplenomegaly. Negative for costovertebral tenderness. Pelvis: Stable nontender. Genitourinary: Deferred. Rectal: Deferred. Extremities: Atraumatic, negative for cords or calf pain. Neurovascular unremarkable. Neuro: Awake, alert, oriented. Cranial nerves II through XII unremarkable. Cerebellum unremarkable. Motor and sensory unremarkable throughout. Exam nonfocal. Diagnostics: CBC CMP PT/INR troponin chest x-ray EKG Therapeutics: IV O2 monitor Impression: #1 atypical chest pain Definitive disposition and diagnosis as appropriate pending reevaluation and review of above. Anterior Chest Pain Score (Numeric/FACES): 7 - Related Data Allergies Allergy/AdvReac Type Severity Reaction Status Date / Time No Known Allergies Allergy Verified 12/26/16 23:03 Home Meds: Home Meds Losartan [Cozaar] 25 mg PO BID 07/15/16 [History] Spironolactone [Aldactone] 25 mg PO BID 07/15/16 [History] Insulin Detemir [Levemir Flextouch] 30 units SUBCUT BEDTIME 09/04/16 [History] Carvedilol 12.5 mg PO BIDMEALS 11/30/16 [History] DULoxetine [Cymbalta] 30 mg PO DAILY 11/30/16 [History] Ranolazine [Ranexa] 500 mg PO BID 11/30/16 [History] Isosorbide Mononitrate [Imdur] 60 mg PO DAILY 12/17/16 [History] Nitroglycerin 0.4 mg SL Q5M PRN 12/17/16 [History] Aspirin [Ecotrin] 325 mg PO DAILY 12/23/16 [History] DULoxetine [Cymbalta] 60 mg PO BEDTIME 12/23/16 [History] Omeprazole 40 mg PO ACBREAKFAST 12/23/16 [History] Insulin Aspart [NovoLOG] See Protocol SUBCUT TIDMEALS #0 12/25/16 [Rx] oxyCODONE HCl/Acetaminophen [Percocet 10-325 mg Tablet] 1 each PO Q6HR #20 tablet 12/25/16 [Rx] Past Medical History - Past Health History Medical/Surgical History: Denies Medical/Surgical History HEENT History: Reports: None Cardiovascular History: Reports: Angina, CAD, High Cholesterol, Heart Failure, Hypertension, PA, Other (See Below), Pacemaker Other Cardiovascular History: Valve Problem Respiratory History: Reports: Asthma Other Respiratory History: recently diagnosed with nodules in lungs Gastrointestinal History: Reports: None Genitourinary History: Reports: None Musculoskeletal History: Reports: Back Pain, Chronic Neurological History: Reports: Neuropathy, Diabetic Other Neuro History: Intracranial hypertension Psychiatric History: Reports: Depression Endocrine/Metabolic History: Reports: Diabetes, Type I, Other (See Below) Hematologic History: Reports: None Immunologic History: Reports: None Oncologic (Cancer) History: Reports: None Dermatologic History: Reports: None - Infectious Disease History Infectious Disease History: Reports: Chicken Pox, None - Past Surgical History Head Surgeries/Procedures: Reports: None Social & Family History - Family History Family Medical History: Noncontributory - Tobacco Use Smoking Status *Q: Unknown Ever Smoked Second Hand Smoke Exposure: Yes - Caffeine Use Caffeine Use: Reports: Coffee - Alcohol Use Days Per Week of Alcohol Use: 0 - Recreational Drug Use Recreational Drug Use: No ED ROS GENERAL - Review of Systems Review Of Systems: ROS reveals no pertinent complaints other than HPI. ED EXAM, GENERAL - Physical Exam Exam: See Below (Dictated) Course - Vital Signs Last Recorded V/S: Last Vital Signs Temp 36.6 C 12/26/16 23:03 Pulse 88 12/26/16 23:55 Resp 18 12/26/16 23:55 BP 117/85 12/26/16 23:55 Pulse Ox 100 12/26/16 23:55 - Orders/Labs/Meds Orders: Active Orders 24 hr Category Date Time Status Cardiac Monitoring [RC] . DIRECTED Care 12/26/16 23:05 Active EKG Documentation Completion [RC] STAT Care 12/26/16 23:05 Active Chest 1V Frontal [CR] Stat Exams 12/26/16 23:05 Taken Labs: Laboratory Tests 12/26/16 12/26/16 12/26/16 Range/Units 23:10 23:10 23:10 WBC 4.81 (4.0-11.0) K/uL RBC 4.49 L (4.50-5.90) M/uL Hgb 14.4 (13.0-17.0) g/dL Hct 40.0 (38.0-50.0) % MCV 89.1 (80.0-98.0) fL MCH 32.1 H (27.0-32.0) pg MCHC 36.0 (31.0-37.0) g/dL RDW Std Deviation 40.7 (28.0-62.0) fl RDW Coeff of Charles 13 (11.0-15.0) % Plt Count 224 (150-400) K/uL MPV 9.90 (7.40-12.00) fL Neut % (Auto) 47.0 L (48.0-80.0) % Lymph % (Auto) 36.4 (16.0-40.0) % [place] % (Auto) 11.4 (0.0-15.0) % Eos % (Auto) 4.6 (0.0-7.0) % Baso % (Auto) 0.6 (0.0-1.5) % Neut # (Auto) 2.3 (1.4-5.7) K/uL Lymph # (Auto) 1.8 (0.6-2.4) K/uL [place] # (Auto) 0.6 (0.0-0.8) K/uL Eos # (Auto) 0.2 (0.0-0.7) K/uL Baso # (Auto) 0.0 (0.0-0.1) K/uL Nucleated RBC % 0.0 /100WBC Nucleated RBCs # 0 K/uL INR 1.05 (0.86-1.11) Sodium 139 (136-146) mmol/L Potassium 4.5 (3.5-5.1) mmol/L Chloride 104 (98-110) mmol/L Carbon Dioxide 26 (21-31) mmol/L BUN 17 (6.0-23.0) mg/dL Creatinine 1.2 (0.6-1.5) mg/dL Est Cr Clr Drug Dosing TNP Estimated GFR (MDRD) > 60.0 ml/min Glucose 295 H (60-110) mg/dL Calcium 8.8 (8.8-10.8) mg/dL Total Bilirubin 1.1 (0.1-1.5) mg/dL AST 28 (5-40) IU/L ALT 25 (8-54) IU/L Alkaline Phosphatase 81 (40-150) CK-MB (CK-2) 2.7 (0-6.6) ng/ml Troponin I < 0.10 (0.0-0.29) NG/ML Total Protein 6.6 (6.0-8.0) g/dL Albumin 4.1 (3.5-5.0) g/dL Globulin 2.5 (2.0-3.5) g/dL Albumin/Globulin Ratio 1.6 (1.3-2.8) Meds: Medications Discontinued Medications Generic Name Dose Route Start Last Admin Trade Name Freq PRN Reason Stop Dose Admin Aspirin 324 mg 12/26/16 23:16 12/26/16 23:28 Aspirin PO 12/26/16 23:17 324 mg ONETIME ONE Administration Nitroglycerin 1 gm 12/26/16 23:17 12/26/16 23:28 Nitro-Bid 2% TOP 12/26/16 23:18 1 gm ONETIME ONE Administration Departure - Departure Time of Disposition: 23:07 Disposition: DC/Tfer to Acute Hospital 02 Condition: Good Clinical Impression: Chest pain Qualifiers: Chest pain type: chest pain on breathing Qualified Code(s): R07.1 - Chest pain on breathing - Discharge Information Referrals: PCP,None [Primary Care Provider] - Forms: ED Department Discharge - My Orders Last 24 Hours: My Active Orders 12/26/16 23:05 Cardiac Monitoring [RC] . DIRECTED EKG Documentation Completion [RC] STAT Chest 1V Frontal [CR] Stat - Assessment/Plan Last 24 Hours: My Active Orders 12/26/16 23:05 Cardiac Monitoring [RC] . DIRECTED EKG Documentation Completion [RC] STAT Chest 1V Frontal [CR] Stat
[2016-12-26] MEDS ORDERED: Aspirin 81 MG Tab.Chew PO ONE (23:16)
[2016-12-26] MEDS ORDERED: Nitroglycerin 2% Oint 1 GM UD Packet TOP ONE (23:17)
[2016-12-26 23:41] LABS: CHLORIDE,CL 104 mmol/L (98-110); SODIUM,NA 139 mmol/L (136-146)
[2016-12-27 00:15] VITALS: BP 114/77
--- NOTE | 2016-12-27 10:46 | CR ---
EXAM DATE: 12/26/16 PATIENT'S AGE: 51 Patient: EVELIO COSME Facility: [place], [place] Site . Site : 1965 Study: XRay Chest [id number] 11:49:53 PM Ordering Physician: Marimar Robison Final Report: INDICATION: Chest pain. TECHNIQUE: Chest radiograph 1 view COMPARISON: 12/23/2016. FINDINGS: Heart and mediastinal contours are within normal limits. Right subclavian pacemaker leads are intact. Lungs are clear. No pneumothorax or blunting of costophrenic sulci. Bones and soft tissues unremarkable. IMPRESSION: 1. No acute abnormality. No significant interval change from 12/23/2016 study. Dictated by Tio Randolph MD @ 12/26/2016 11:54:05 PM Dictated by: Tio Randolph MD @ 12/26/2016 23:54:13 (Electronic Signature) Report Signed by Proxy. [facility]
== END 2016-12-27 00:50 ==
LOC: MW.ED 22:53
DX: R07.1 Chest pain on breathing (principal); I11.0 Hypertensive heart disease with heart failure; I50.9 Heart failure, unspecified; E78.00 Pure hypercholesterolemia, unspecified; E10.40 Type 1 diabetes mellitus with diabetic neuropathy, unspecified; Z79.899 Other long term (current) drug therapy; Z79.4 Long term (current) use of insulin
CPT/HCPCS: 71010; 80053; 82553; 84484; 85025; 85610; 93005; 99285; A9270; 99283

== ENCOUNTER 2018-12-22 19:16 | Emergency (ER) | payer MEDICAID ==
--- NOTE | 2018-12-22 20:05 | EDM.PDOC ---
ED HPI GENERAL MEDICAL PROBLEM - General Chief Complaint: Abdominal Pain Stated Complaint: LEAKY HERNIA Time Seen by Provider: 12/22/18 19:27 Source of Information: Reports: Patient History Limitations: Reports: No Limitations - History of Present Illness INITIAL COMMENTS - FREE TEXT/NARRATIVE: Presents reporting a three-week history of his abdominal "hernias hurting". He states he came in tonight because they were "hurting worse". He states that he was scheduled for surgery in [facility] on December 17 but no one called to remind him so he did not show up for surgery. During the course of the interview, the patient was complaining of abdominal pain and clutching some skin above this right middle abdominal hernia. He made all sorts of grimacing faces. Then he acted like he was passed out and wouldn't respond although one could see his oxygen saturation was 97% and his carotid pulse was obviously pounding. Nursing staff noted the same behavior during their interview. He has a history of a pacemaker, type 1 diabetes. Denies fever, dysuria, nausea, vomiting. Had one loose brown stool today. His friends left the room and said they were leaving and told us "good luck". One of them stated that he had only come to [place] because he had nowhere else to live. He exists on SSI and can't find anyone to take care of him. abdomen Pain Score (Numeric/FACES): 9 - Related Data Allergies Allergy/AdvReac Type Severity Reaction Status Date / Time No Known Allergies Allergy Verified 12/22/18 19:24 Home Meds: Home Meds Losartan [Cozaar] 25 mg PO BID 07/15/16 [History] Spironolactone [Aldactone] 25 mg PO BID 07/15/16 [History] Insulin Detemir [Levemir Flextouch] 30 units SUBCUT BEDTIME 09/04/16 [History] Carvedilol 12.5 mg PO BIDMEALS 11/30/16 [History] Ranolazine [Ranexa] 500 mg PO BID 11/30/16 [History] Isosorbide Mononitrate [Imdur] 60 mg PO DAILY 12/17/16 [History] Aspirin [Ecotrin] 81 mg PO DAILY 12/23/16 [History] DULoxetine [Cymbalta] 60 mg PO BID 12/23/16 [History] Omeprazole 40 mg PO ACBREAKFAST 12/23/16 [History] Insulin Aspart [NovoLOG] See Protocol SUBCUT TIDMEALS #0 12/25/16 [Rx] oxyCODONE HCl/Acetaminophen [Percocet 10-325 mg Tablet] 1 each PO Q6HR #20 tablet 12/25/16 [Rx] Ondansetron [Zofran ODT] 4 mg PO Q8H PRN #10 tab.dis 02/23/17 [Rx] Past Medical History - Past Health History Medical/Surgical History: Denies Medical/Surgical History HEENT History: Reports: None Cardiovascular History: Reports: CAD, Heart Failure, High Cholesterol, Hypertension, [place], Pacemaker Other Cardiovascular History: Valve Problem Respiratory History: Reports: Other (See Below) (Pulmonary nodules) Other Respiratory History: recently diagnosed with nodules in lungs Gastrointestinal History: Reports: None Genitourinary History: Reports: Chronic Renal Insuffiency Musculoskeletal History: Reports: Back Pain, Chronic Neurological History: Reports: Neuropathy, Diabetic, Other (See Below) Other Neuro History: Intracranial hypertension Psychiatric History: Reports: Anxiety, Depression Endocrine/Metabolic History: Reports: Diabetes, Type I Hematologic History: Reports: None Immunologic History: Reports: None Oncologic (Cancer) History: Reports: None Dermatologic History: Reports: None - Infectious Disease History Infectious Disease History: Reports: Chicken Pox - Past Surgical History Head Surgeries/Procedures: Reports: None HEENT Surgical History: Reports: Oral Surgery Cardiovascular Surgical History: Reports: AICD, Coronary Artery Stent, Other ( See Below) GI Surgical History: Reports: Cholecystectomy Social & Family History - Family History Family Medical History: Noncontributory - Tobacco Use Smoking Status *Q: Never Smoker - Caffeine Use Caffeine Use: Reports: Soda - Recreational Drug Use Recreational Drug Use: No - Living Situation & Occupation Living situation: Reports: , with Spouse, with Family (2 kids) Occupation: Unemployed ED ROS GENERAL - Review of Systems Review Of Systems: ROS reveals no pertinent complaints other than HPI. ED EXAM, GI/ABD - Physical Exam Exam: See Below Exam Limited By: No Limitations General Appearance: Alert, No Apparent Distress Ears: Normal External Exam Nose: Normal Inspection Throat/Mouth: Normal Inspection Head: Atraumatic, Normocephalic Neck: Normal Inspection Respiratory/Chest: No Respiratory Distress, Lungs Clear, Normal Breath Sounds Cardiovascular: Normal Peripheral Pulses, Regular Rate, Rhythm, No Murmur GI/Abdominal Exam: Normal Bowel Sounds, Non-Tender, No Distention, Other (Soft abdominal wall hernias right and left mid abdomen) Back Exam: Normal Inspection Extremities: Normal Inspection Neurological: Alert, Oriented, Normal Cognition Psychiatric: Anxious Skin Exam: Warm, Dry, Intact, Normal Color, No Rash Lymphatic: No Adenopathy Course - Vital Signs Last Recorded V/S: Last Vital Signs Temp 35.9 C 12/22/18 19:16 Pulse 88 12/22/18 19:16 Resp 18 12/22/18 19:16 BP 158/97 H 12/22/18 19:16 Pulse Ox 95 12/22/18 19:16 - Orders/Labs/Meds Orders: Active Orders 24 hr Category Date Time Status Abdomen Pelvis wo Cont [CT] Stat Exams 12/22/18 19:45 Ordered COMPREHENSIVE METABOLIC PN,CMP [CHEM] Stat Lab 12/22/18 19:44 Ordered Labs: Laboratory Tests 12/22/18 Range/Units 19:20 WBC 6.56 (4.0-11.0) K/uL RBC 4.92 (4.50-5.90) M/uL Hgb 15.9 (13.0-17.0) g/dL Hct 44.7 (38.0-50.0) % MCV 90.9 (80.0-98.0) fL MCH 32.3 H (27.0-32.0) pg MCHC 35.6 (31.0-37.0) g/dL RDW Std Deviation 41.5 (28.0-62.0) fl RDW Coeff of Charles 13 (11.0-15.0) % Plt Count 216 (150-400) K/uL MPV 11.00 (7.40-12.00) fL Neut % (Auto) 49.4 (48.0-80.0) % Lymph % (Auto) 39.3 (16.0-40.0) % [place] % (Auto) 8.1 (0.0-15.0) % Eos % (Auto) 2.9 (0.0-7.0) % Baso % (Auto) 0.3 (0.0-1.5) % Neut # (Auto) 3.2 (1.4-5.7) K/uL Lymph # (Auto) 2.6 H (0.6-2.4) K/uL [place] # (Auto) 0.5 (0.0-0.8) K/uL Eos # (Auto) 0.2 (0.0-0.7) K/uL Baso # (Auto) 0.0 (0.0-0.1) K/uL Nucleated RBC % 0.0 /100WBC Nucleated RBCs # 0 K/uL - Re-Assessments/Exams Free Text/Narrative Re-Assessment/Exam: 12/22/18 20:55 The patient is happy and reports no symptoms. Departure - Departure Time of Disposition: 20:55 Disposition: Home, Self-Care 01 Condition: Good Clinical Impression: Abdominal pain Qualifiers: Abdominal location: right upper quadrant Qualified Code(s): R10.11 - Right upper quadrant pain - Discharge Information Referrals: PCP,None [Primary Care Provider] - Additional Instructions: The following information is given to patients seen in the emergency department who are being discharged to home. This information is to outline your options for follow-up care. We provide all patients seen in our emergency department with a follow-up referral. The need for follow-up, as well as the timing and circumstances, are variable depending upon the specifics of your emergency department visit. If you don't have a primary care physician on staff, we will provide you with a referral. We always advise you to contact your personal physician following an emergency department visit to inform them of the circumstance of the visit and for follow-up with them and/or the need for any referrals to a consulting specialist. The emergency department will also refer you to a specialist when appropriate. This referral assures that you have the opportunity for follow-up care with a specialist. All of these measure are taken in an effort to provide you with optimal care, which includes your follow-up. Under all circumstances we always encourage you to contact your private physician who remains a resource for coordinating your care. When calling for follow-up care, please make the office aware that this follow-up is from your recent emergency room visit. If for any reason you are refused follow-up, please contact the [facility] Emergency Department at and asked to speak to the emergency department charge nurse. [facility] [address] [place] [id number] [facility] [address] [place] [address] 1. Make an appointment to establish care - My Orders Last 24 Hours: My Active Orders 12/22/18 19:44 COMPREHENSIVE METABOLIC PN,CMP [CHEM] Stat 12/22/18 19:45 Abdomen Pelvis wo Cont [CT] Stat - Assessment/Plan Last 24 Hours: My Active Orders 12/22/18 19:44 COMPREHENSIVE METABOLIC PN,CMP [CHEM] Stat 12/22/18 19:45 Abdomen Pelvis wo Cont [CT] Stat
[2018-12-22 20:06] LABS: BLOOD UREA NITROGEN,BUN 10 mg/dL (7.0-18.0); CARBON DIOXIDE,CO2 24.8 mmol/L (21.0-32.0); CHLORIDE,CL 109 mmol/L (98-107); GLUCOSE RANDOM 88 mg/dL (74-106); POTASSIUM,K 3.6 mmol/L (3.5-5.1); SODIUM,NA 145 mmol/L (136-148)
--- NOTE | 2018-12-22 20:47 | CT ---
INDICATION: Abdominal pain TECHNIQUE: CT abdomen and pelvis without contrast. COMPARISON: Abdomen and pelvis CT 12/17/2016 FINDINGS: Lower chest: No acute consolidation. Pacemaker leads at the coronary sinus, right atrial appendage and right ventricle level. Liver: Normal in contour with a hypodense lesion within segment 4 measuring 3.5 centimeters consistent with the previously noted hemangioma. Size is not significantly changed. Gallbladder and bile ducts: Status post cholecystectomy. Pancreas: Unremarkable. No mass or inflammation. Spleen: Normal in size. No masses. Adrenal glands: Normal in size. No nodules. Kidneys: Kidneys are normal in contour without evidence of hydronephrosis. 15 millimeter cyst within the lateral aspect of the right kidney. GI tract: The stomach is unremarkable. There are no dilated loops of large or small intestine. No localizing inflammation. Vasculature: Unremarkable. Abdominal wall/Omentum/Peritoneum: Slight fat stranding anterior subcutaneous tissues, likely minimal fibrosis. Pelvis: Fat containing right direct inguinal hernia. Bladder unremarkable. Bones: Unremarkable for age. IMPRESSION: 1. No dilated bowel or localized inflammation. 2. Fat containing right direct inguinal hernia. Please note that all CT scans at this facility use dose modulation, iterative reconstruction, and/or weight-based dosing when appropriate to reduce radiation dose to as low as reasonably achievable. Dictated by Cody Hill MD @ Dec 22 2018 8:31PM Signed by Dr. Cody Hill @ Dec 22 2018 8:45PM
[2018-12-22] MEDS ORDERED: Sodium Chloride 0.9% 1,000 ML IV STA (20:58)
[2018-12-22 21:12] VITALS: BP 123/76; PULSE 76
== END 2018-12-22 21:05 | disposition home or self-care (01) ==
LOC: MW.ED 19:16
DX: R10.11 Right upper quadrant pain (principal); I25.2 Old myocardial infarction; I25.10 Atherosclerotic heart disease of native coronary artery without angina pectoris; I13.0 Hypertensive heart and chronic kidney disease with heart failure and stage 1 through stage 4 chronic kidney disease, or unspecified chronic kidney disease; I50.9 Heart failure, unspecified; E10.22 Type 1 diabetes mellitus with diabetic chronic kidney disease; N18.9 Chronic kidney disease, unspecified; E10.40 Type 1 diabetes mellitus with diabetic neuropathy, unspecified; F32.9 Major depressive disorder, single episode, unspecified; F41.9 Anxiety disorder, unspecified; Z79.4 Long term (current) use of insulin; Z79.82 Long term (current) use of aspirin; Z79.899 Other long term (current) drug therapy; Z95.5 Presence of coronary angioplasty implant and graft; Z90.49 Acquired absence of other specified parts of digestive tract
CPT/HCPCS: 36415; 74176; 80053; 85025; 96360; 96361; 99284; J7040; 99283

== ENCOUNTER 2019-01-05 09:47 | Emergency (ER) | payer MEDICAID ==
--- NOTE | 2019-01-05 10:09 | EDM.PDOC ---
ED HPI GENERAL MEDICAL PROBLEM - General Chief Complaint: Lower Extremity Injury/Pain Stated Complaint: INJURED RT HIP Time Seen by Provider: 01/05/19 10:06 Source of Information: Reports: Patient History Limitations: Reports: No Limitations - History of Present Illness INITIAL COMMENTS - FREE TEXT/NARRATIVE: HISTORY AND PHYSICAL: History of present illness: Patient is a 53-year-old male presents to the ED with complaint of right hip pain. He states he fell 3 days ago landing on his right side. He states he is not able to bear full weight on the right side. He denies head injury or LOC. He denies fevers, chills, or other injury. Review of systems: As per history of present illness and below otherwise all systems reviewed and negative. Past medical history: As per history of present illness and as reviewed below otherwise noncontributory. Surgical history: As per history of present illness and as reviewed below otherwise noncontributory. Social history: No reported history of drug or alcohol abuse. Family history: As per history of present illness and as reviewed below otherwise noncontributory. Physical exam: General: Patient sitting comfortably in no acute distress and nontoxic appearing HEENT: Atraumatic, normocephalic, pupils reactive, negative for conjunctival pallor or scleral icterus, mucous membranes moist, throat clear, neck supple, nontender, trachea midline. No meningeal signs. Lungs: Clear to auscultation, breath sounds equal bilaterally, chest nontender. Heart: S1S2, regular, negative for clicks, rubs, or overt murmur. Abdomen: Soft, nondistended, nontender. Negative for masses or hepatosplenomegaly. Negative for costovertebral tenderness. No rigidity, rebound , guarding. Pelvis: Stable nontender. Genitourinary: Deferred. Rectal: Deferred. Extremities: Abrasion to the right lateral hip. No erythema or warmth. Pain to palpation of the right lateral hip. Patient is able to passively flex and extend at hip without difficulty. Atraumatic, negative for cords or calf pain. Neurovascular unremarkable. Neuro: Awake, alert, oriented. Cranial nerves II through XII unremarkable. Cerebellum unremarkable. Motor and sensory unremarkable throughout. Exam nonfocal. Notes: Diagnostics: x-ray right hip and pelvis Therapeutics: Crutches Prescriptions: Tramadol Impression: Right hip pain Plan: 1. Ice, elevate, and tylenol as needed.You may take tramadol as needed for severe pain 2. Follow up with orthopedics, please call the number provided to schedule an appointment 3. Return to ED as needed as discussed Definitive disposition and diagnosis as appropriate pending reevaluation and review of above. Right Hip Pain Score (Numeric/FACES): 8 - Related Data Allergies Allergy/AdvReac Type Severity Reaction Status Date / Time No Known Allergies Allergy Verified 12/22/18 19:24 Home Meds: Home Meds Isosorbide Mononitrate [Imdur] 30 mg PO DAILY 12/17/16 [History] DULoxetine [Cymbalta] 30 mg PO DAILY 12/23/16 [History] Insulin Aspart [NovoLOG] See Protocol SUBCUT TIDMEALS #0 12/25/16 [Rx] Clopidogrel [Plavix] 75 mg PO DAILY 01/05/19 [History] Insulin Glarg,Human.Rec.Analog [Lantus] 20 unit SUBCUT DAILY 01/05/19 [History] Metoprolol Tartrate 25 mg PO BID 01/05/19 [History] Topiramate 25 mg PO BID 01/05/19 [History] atorvaSTATin [Lipitor] 10 mg PO DAILY 01/05/19 [History] Past Medical History - Past Health History Medical/Surgical History: Denies Medical/Surgical History HEENT History: Reports: None Cardiovascular History: Reports: CAD, Heart Failure, High Cholesterol, Hypertension, [place], Pacemaker Other Cardiovascular History: Valve Problem Respiratory History: Reports: Other (See Below) (Pulmonary nodules) Other Respiratory History: recently diagnosed with nodules in lungs Gastrointestinal History: Reports: None Genitourinary History: Reports: Chronic Renal Insuffiency Musculoskeletal History: Reports: Back Pain, Chronic Neurological History: Reports: Neuropathy, Diabetic, Other (See Below) Other Neuro History: Intracranial hypertension Psychiatric History: Reports: Anxiety, Depression Endocrine/Metabolic History: Reports: Diabetes, Type I Hematologic History: Reports: None Immunologic History: Reports: None Oncologic (Cancer) History: Reports: None Dermatologic History: Reports: None - Infectious Disease History Infectious Disease History: Reports: Chicken Pox - Past Surgical History Head Surgeries/Procedures: Reports: None HEENT Surgical History: Reports: Oral Surgery Cardiovascular Surgical History: Reports: AICD, Coronary Artery Stent, Other ( See Below) GI Surgical History: Reports: Cholecystectomy Social & Family History - Family History Family Medical History: Noncontributory - Caffeine Use Caffeine Use: Reports: Soda - Living Situation & Occupation Living situation: Reports: , with Spouse, with Family (2 kids) Occupation: Unemployed Review of Systems - Review of Systems Review Of Systems: ROS reveals no pertinent complaints other than HPI. ED EXAM, GENERAL - Physical Exam Exam: See Below (see dictation) Course - Vital Signs Last Recorded V/S: Last Vital Signs Temp 97.0 F 01/05/19 10:04 Pulse 84 01/05/19 10:04 Resp 18 01/05/19 10:04 BP 104/73 01/05/19 10:04 Pulse Ox Departure - Departure Time of Disposition: 11:26 Disposition: Home, Self-Care 01 Condition: Good Clinical Impression: Right hip pain - Discharge Information Referrals: PCP,None [Primary Care Provider] - Forms: ED Department Discharge Additional Instructions: The following information is given to patients seen in the emergency department who are being discharged to home. This information is to outline your options for follow-up care. We provide all patients seen in our emergency department with a follow-up referral. The need for follow-up, as well as the timing and circumstances, are variable depending upon the specifics of your emergency department visit. If you don't have a primary care physician on staff, we will provide you with a referral. We always advise you to contact your personal physician following an emergency department visit to inform them of the circumstance of the visit and for follow-up with them and/or the need for any referrals to a consulting specialist. The emergency department will also refer you to a specialist when appropriate. This referral assures that you have the opportunity for follow-up care with a specialist. All of these measure are taken in an effort to provide you with optimal care, which includes your follow-up. Under all circumstances we always encourage you to contact your private physician who remains a resource for coordinating your care. When calling for follow-up care, please make the office aware that this follow-up is from your recent emergency room visit. If for any reason you are refused follow-up, please contact the [facility] Emergency Department at and asked to speak to the emergency department charge nurse. [facility] [address] [place] [address] 1. Ice, elevate, and tylenol as needed.You may take tramadol as needed for severe pain 2. Follow up with orthopedics, please call the number provided to schedule an appointment 3. Return to ED as needed as discussed
--- NOTE | 2019-01-05 11:09 | CR ---
3 VIEWS pelvis and right hip. INDICATION: Pain. IMPRESSION: Joint space narrowing with no fracture FINDINGS: Joint spaces: Symmetric narrowing. Medial inferior quadrants. Osseous structures: No fractures. Miscellaneous: Pelvic phleboliths and vascular calcifications. Dictated by Jain Carey MD @ Jan 05 2019 11:06AM Signed by Dr. Jani Carey @ Jan 05 2019 11:06AM
[2019-01-06 07:59] VITALS: BP 99/75; PULSE 86
== END 2019-01-05 11:39 | disposition home or self-care (01) ==
LOC: MW.ED 09:47
DX: M25.551 Pain in right hip (principal); E78.00 Pure hypercholesterolemia, unspecified; I25.2 Old myocardial infarction; I11.0 Hypertensive heart disease with heart failure; I50.9 Heart failure, unspecified; I25.10 Atherosclerotic heart disease of native coronary artery without angina pectoris; E10.40 Type 1 diabetes mellitus with diabetic neuropathy, unspecified; F32.9 Major depressive disorder, single episode, unspecified; Z79.899 Other long term (current) drug therapy; Z79.4 Long term (current) use of insulin; Z79.01 Long term (current) use of anticoagulants; W19.XXXA Unspecified fall, initial encounter
CPT/HCPCS: 73502-26-RT; 73502-RT; 99283; 99283-25

== ENCOUNTER 2019-03-01 15:03 | Observation (INO) | payer MEDICARE, MEDICAID ==
[2019-03-01] MEDS ORDERED: Sodium Chloride 0.9% 2.5 ML Syringe FLUSH PRN (15:09)
[2019-03-01] MEDS ORDERED: Sodium Chloride 0.9% 10 ML Syringe FLUSH PRN (15:09)
[2019-03-01] MEDS ORDERED: Aspirin 81 MG Tab.Chew PO ONE (15:18)
[2019-03-01] MEDS ORDERED: Nitroglycerin 2% Oint 1 GM UD Packet TOP ONE (15:18)
[2019-03-01] MEDS ORDERED: Metoprolol Tartrate 5 MG in Sodium Chloride 0.9% 50 ML IV ONE (15:22)
[2019-03-01] MEDS ORDERED: Metoprolol Tartrate 5 MG/5 ML SDV IVPUSH ONE (15:26)
[2019-03-01] MEDS ORDERED: Sodium Chloride 0.9% 1,000 ML IV SCH (15:30)
[2019-03-01] MEDS ORDERED: Morphine 4 MG/ML Syringe IVPUSH ONE (15:34)
[2019-03-01 15:54] LABS: BLOOD UREA NITROGEN,BUN 16 mg/dL (7.0-18.0); CARBON DIOXIDE,CO2 27.6 mmol/L (21.0-32.0); CHLORIDE,CL 101 mmol/L (98-107); GLUCOSE RANDOM 415 mg/dL (74-106); POTASSIUM,K 4.4 mmol/L (3.5-5.1); SODIUM,NA 140 mmol/L (136-148)
--- NOTE | 2019-03-01 16:05 | CR ---
Chest: Frontal view of the chest was obtained in AP projection. Comparison: Prior chest x-ray of 12/26/16. Heart size and mediastinum are within normal limits. AICD is present. Epicardial wire is also noted. Lungs are clear with no acute parenchymal change. Bony structures are grossly intact. Impression: 1. Nothing acute is seen on AP chest x-ray. Diagnostic code #2 This report was dictated in Mountain Standard Time
--- NOTE | 2019-03-01 17:29 | EDM.PDOC ---
ED HPI GENERAL MEDICAL PROBLEM - General Chief Complaint: Chest Pain Stated Complaint: CHEST PAIN Time Seen by Provider: 03/01/19 15:22 Source of Information: Reports: Patient History Limitations: Reports: No Limitations - History of Present Illness Onset: Sudden Duration: Waxing/Waning (but nevere goes away.) Location: Reports: Chest (substernal.) Quality: Reports: Stabbing Severity: Moderate Improves with: Reports: Medication (slight improvement with one nitro at home today.), Rest Associated Symptoms: Reports: Chest Pain, Nausea/Vomiting (nausea but no vomiting.). Denies: Diaphoresis, Headaches Left sternal chest Pain Score (Numeric/FACES): 9 - Related Data Allergies Allergy/AdvReac Type Severity Reaction Status Date / Time No Known Allergies Allergy Verified 03/01/19 15:15 Home Meds: Home Meds Isosorbide Mononitrate [Imdur] 30 mg PO DAILY 12/17/16 [History] DULoxetine [Cymbalta] 30 mg PO DAILY 12/23/16 [History] Insulin Aspart [NovoLOG] See Protocol SUBCUT TIDMEALS #0 12/25/16 [Rx] Clopidogrel [Plavix] 75 mg PO DAILY 01/05/19 [History] Insulin Glarg,Human.Rec.Analog [Lantus] 20 unit SUBCUT DAILY 01/05/19 [History] Metoprolol Tartrate 25 mg PO BID 01/05/19 [History] Topiramate 25 mg PO BID 01/05/19 [History] atorvaSTATin [Lipitor] 10 mg PO DAILY 01/05/19 [History] Past Medical History - Past Health History Medical/Surgical History: Denies Medical/Surgical History HEENT History: Reports: None Cardiovascular History: Reports: CAD, Heart Failure, High Cholesterol, Hypertension, [place], Pacemaker Other Cardiovascular History: Valve Problem Respiratory History: Reports: Other (See Below) Other Respiratory History: recently diagnosed with nodules in lungs Gastrointestinal History: Reports: None Genitourinary History: Reports: Chronic Renal Insuffiency Musculoskeletal History: Reports: Back Pain, Chronic Neurological History: Reports: Neuropathy, Diabetic, Other (See Below) Other Neuro History: Intracranial hypertension Psychiatric History: Reports: Anxiety, Depression Endocrine/Metabolic History: Reports: Diabetes, Type I Hematologic History: Reports: None Immunologic History: Reports: None Oncologic (Cancer) History: Reports: None Dermatologic History: Reports: None - Infectious Disease History Infectious Disease History: Reports: Chicken Pox - Past Surgical History Head Surgeries/Procedures: Reports: None HEENT Surgical History: Reports: Oral Surgery Cardiovascular Surgical History: Reports: AICD, Coronary Artery Stent, Other ( See Below) Respiratory Surgical History: Reports: None GI Surgical History: Reports: Cholecystectomy Male Surgical History: Reports: None Endocrine Surgical History: Reports: None Neurological Surgical History: Reports: None Musculoskeletal Surgical History: Reports: None Oncologic Surgical History: Reports: None Dermatological Surgical History: Reports: None Social & Family History - Family History Family Medical History: Noncontributory - Tobacco Use Smoking Status *Q: Never Smoker Second Hand Smoke Exposure: No - Caffeine Use Caffeine Use: Reports: None - Recreational Drug Use Recreational Drug Use: No - Living Situation & Occupation Living situation: Reports: , with Spouse, with Family (2 kids) Occupation: Unemployed ED ROS GENERAL - Review of Systems Review Of Systems: See Below Constitutional: Reports: No Symptoms HEENT: Reports: No Symptoms Respiratory: Reports: No Symptoms Cardiovascular: Reports: Chest Pain (stabbing in nature.), Lightheadedness. Denies: Claudication, Dyspnea on Exertion, Orthopnea, Palpitations, Syncope Endocrine: Reports: No Symptoms (but he has a history of DM type 2) GI/Abdominal: Reports: No Symptoms : Reports: No Symptoms Musculoskeletal: Reports: Arm Pain (complains of pain into his left arm and shoulder.) Skin: Reports: Diaphoresis (mild sweating.) Neurological: Reports: No Symptoms Psychiatric: Reports: No Symptoms Hematologic/Lymphatic: Reports: No Symptoms Immunologic: Reports: No Symptoms ED EXAM, GENERAL - Physical Exam Exam: See Below Exam Limited By: No Limitations General Appearance: Alert, Moderate Distress Eye Exam: Bilateral Eye: Normal Inspection, PERRL Ears: Normal External Exam, Normal Canal, Hearing Grossly Normal, Normal TMs Ear Exam: Bilateral Ear: Auricle Normal, Canal Normal, TM normal Nose: Normal Inspection, Normal Mucosa, No Blood Throat/Mouth: Normal Inspection, Normal Lips, Normal Teeth, Normal Gums, Normal Oropharynx, Normal Voice, No Airway Compromise Head: Atraumatic, Normocephalic Neck: Normal Inspection, Supple, Non-Tender, Full Range of Motion Respiratory/Chest: No Respiratory Distress, Lungs Clear, Normal Breath Sounds, No Accessory Muscle Use. No: Decreased Breath Sounds, Crackles, Rales, Rhonchi , Wheezing Cardiovascular: Normal Peripheral Pulses, Regular Rate, Rhythm, No JVD, Systolic Murmur (grade 2/6 best heard at the apex.) Peripheral Pulses: 2+: Dorsalis Pedis (L), Dorsalis Pedis (R), 3+: Carotid (L), Carotid (R), Radial (L), Radial (R) GI/Abdominal: Normal Bowel Sounds, Soft, Non-Tender, No Organomegaly, No Distention, No Abnormal Bruit, No Mass Back Exam: Normal Inspection, Full Range of Motion, NT Extremities: Normal Inspection, Normal Range of Motion, Non-Tender, Normal Capillary Refill, No Pedal Edema Neurological: Alert, Oriented, CN II-XII Intact, Normal Cognition, Normal Gait, Normal Reflexes, No Motor/Sensory Deficits Psychiatric: Normal Affect, Normal Mood Skin Exam: Warm, Dry, Intact, Normal Color, No Rash Lymphatic: No Adenopathy Course - Vital Signs Text/Narrative:: I talked with Dr. Spaulding regarding this patient. He has a HEART SCORE OF 5-6 after reviewing all of his clinical and historical data. He will be admitted and the patient agrees with the admission plan. Last Recorded V/S: Last Vital Signs Temp 97.3 F 03/01/19 15:15 Pulse 86 03/01/19 15:47 Resp 16 03/01/19 15:47 BP 141/93 H 03/01/19 15:47 Pulse Ox 96 03/01/19 15:47 - Orders/Labs/Meds Orders: Active Orders 24 hr Category Date Time Status EKG Documentation Completion [RC] STAT Care 03/01/19 15:09 Active UA RFX SUSAN AND CULT IF INDIC [URIN] Stat Lab 03/01/19 15:09 Ordered Sodium Chloride 0.9% [Normal Saline] 1,000 ml Med 03/01/19 15:30 Active IV STAT Sodium Chloride 0.9% [Saline Flush] Med 03/01/19 15:09 Active 10 ml FLUSH ASDIRECTED PRN Sodium Chloride 0.9% [Saline Flush] Med 03/01/19 15:09 Active 2.5 ml FLUSH ASDIRECTED PRN Saline Lock Insert [OM.PC] Stat Oth 03/01/19 15:09 Ordered Medication Orders Sodium Chloride (Normal Saline) 1,000 mls @ 999 mls/hr IV STAT ESTEPHANIA Last Admin: 03/01/19 15:25 Dose: 999 mls/hr Sodium Chloride (Saline Flush) 10 ml FLUSH ASDIRECTED PRN PRN Reason: Keep Vein Open Last Admin: 03/01/19 15:25 Dose: 10 ml Sodium Chloride (Saline Flush) 2.5 ml FLUSH ASDIRECTED PRN PRN Reason: Keep Vein Open Last Admin: 03/01/19 15:24 Dose: 2.5 ml Labs: Laboratory Tests 03/01/19 03/01/19 Range/Units 15:15 15:15 WBC 5.95 (4.0-11.0) K/uL RBC 5.28 (4.50-5.90) M/uL Hgb 16.9 (13.0-17.0) g/dL Hct 47.3 (38.0-50.0) % MCV 89.6 (80.0-98.0) fL MCH 32.0 (27.0-32.0) pg MCHC 35.7 (31.0-37.0) g/dL RDW Std Deviation 39.9 (28.0-62.0) fl RDW Coeff of Charles 12 (11.0-15.0) % Plt Count 205 (150-400) K/uL MPV 10.70 (7.40-12.00) fL Neut % (Auto) 62.6 (48.0-80.0) % Lymph % (Auto) 27.7 (16.0-40.0) % [place] % (Auto) 7.9 (0.0-15.0) % Eos % (Auto) 1.3 (0.0-7.0) % Baso % (Auto) 0.5 (0.0-1.5) % Neut # (Auto) 3.7 (1.4-5.7) K/uL Lymph # (Auto) 1.7 (0.6-2.4) K/uL [place] # (Auto) 0.5 (0.0-0.8) K/uL Eos # (Auto) 0.1 (0.0-0.7) K/uL Baso # (Auto) 0.0 (0.0-0.1) K/uL Nucleated RBC % 0.0 /100WBC Nucleated RBCs # 0 K/uL Sodium 140 (136-148) mmol/L Potassium 4.4 (3.5-5.1) mmol/L Chloride 101 (98-107) mmol/L Carbon Dioxide 27.6 (21.0-32.0) mmol/L BUN 16 (7.0-18.0) mg/dL Creatinine 1.3 (0.8-1.3) mg/dL Est Cr Clr Drug Dosing 75.53 mL/min Estimated GFR (MDRD) 57.5 ml/min Glucose 415 H (74-106) mg/dL Calcium 9.1 (8.5-10.1) mg/dL Total Bilirubin 1.5 H (0.2-1.0) mg/dL AST 12 L (15-37) IU/L ALT 22 (14-63) IU/L Alkaline Phosphatase 107 (46-116) U/L Troponin I < 0.050 (0.000-0.056) ng/mL Total Protein 7.8 (6.4-8.2) g/dL Albumin 4.6 (3.4-5.0) g/dL Globulin 3.2 (2.6-4.0) g/dL Albumin/Globulin Ratio 1.4 (0.9-1.6) Meds: Medications Generic Name Dose Route Start Last Admin Trade Name Freq PRN Reason Stop Dose Admin Sodium Chloride 1,000 mls @ 999 mls/hr 03/01/19 15:30 03/01/19 15:25 Normal Saline IV 999 mls/hr STAT ESTEPHANIA Administration Sodium Chloride 10 ml 03/01/19 15:09 03/01/19 15:25 Saline Flush FLUSH 10 ml ASDIRECTED PRN Administration Keep Vein Open Sodium Chloride 2.5 ml 03/01/19 15:09 03/01/19 15:24 Saline Flush FLUSH 2.5 ml ASDIRECTED PRN Administration Keep Vein Open Discontinued Medications Generic Name Dose Route Start Last Admin Trade Name Freq PRN Reason Stop Dose Admin Aspirin 324 mg 03/01/19 15:18 03/01/19 15:24 Aspirin PO 03/01/19 15:19 324 mg ONETIME ONE Administration Metoprolol Tartrate 5 mg 03/01/19 15:26 03/01/19 15:31 Lopressor IVPUSH 03/01/19 15:27 5 mg ONETIME ONE Administration Morphine Sulfate 4 mg 03/01/19 15:34 03/01/19 15:40 Morphine IVPUSH 03/01/19 15:35 4 mg ONETIME ONE Administration Nitroglycerin 0.5 gm 03/01/19 15:18 03/01/19 15:24 Nitro-Bid 2% TOP 03/01/19 15: 0.5 gm ONETIME ONE Administration Departure - Departure Time of Disposition: 18:00 Disposition: Admitted As Inpatient 65 Condition: Good Clinical Impression: Chest pain due to coronary artery disease, History of left bundle branch block (LBBB) Sepsis Event Note - Evaluation Sepsis Screening Result: No Definite Risk - Focused Exam Vital Signs: Vital Signs Temp Pulse Pulse Resp BP BP Pulse Ox 03/01/19 15:47 86 16 141/93 H 96 03/01/19 15:31 94 136/90 03/01/19 15:15 97.3 F 116 H 21 H 203/126 H 99 Date Exam was Performed: 03/01/19 Time Exam was Performed: 18:13 - My Orders Last 24 Hours: My Active Orders 03/01/19 15:30 Sodium Chloride 0.9% [Normal Saline] 1,000 ml IV STAT - Assessment/Plan Last 24 Hours: My Active Orders 03/01/19 15:30 Sodium Chloride 0.9% [Normal Saline] 1,000 ml IV STAT
[2019-03-01] MEDS ORDERED: Nitroglycerin 0.4 MG Tab.SL SL PRN (19:22)
[2019-03-01] MEDS ORDERED: Morphine 2 MG/ML Syringe IVPUSH PRN (19:22)
--- NOTE | 2019-03-01 19:29 | PCM.HP.2 ---
H&P History of Present Illness - General Date of Service: 03/01/19 Admit Problem/Dx: Admission Diagnosis/Problem Admission Diagnosis/Problem Chest pain Source of Information: Patient History Limitations: Reports: No Limitations - History of Present Illness Initial Comments - Free Text/Narative: Patient is a 53-year-old male with a significant past medical history of insulin -dependent diabetes, history of an STEMI/left bundle branch block w/ pacemaker placement; presenting today after experiencing nonexertional substernal chest pain with radiation to the left jaw and left arm. Denies doing anything excessively or doing any sort of exertional work prior to chest pain developing ; took a baby aspirin at home and presented to the ED. patient endorses not taking all of his home medications secondary to financial reasons; cannot recall which medications he has not been taking. Otherwise patient states that he may have some anxiety as well but his chest pain comes and goes especially today in the emergency department. Patient denies any fevers, chills, body aches, abdominal pain, diarrhea, constipation. Mentions to me that his recent previous stress test states was performed indicating that he can walk a long distance before developing any chest pain or shortness of breath. ED course: On arrival patient received morphine and Zofran. Blood pressure and pulse were elevated and received 5 mg of metoprolol with resolution of hypertension. Initial EKG showed baseline issues most likely secondary to his pacemaker but no acute ST elevations or bundle branch blocks appreciated. Patient received full dose aspirin. Chest x-ray was unremarkable. Left sternal chest Pain Score (Numeric/FACES): 9 - Related Data Allergies/Adverse Reactions: Allergies Allergy/AdvReac Type Severity Reaction Status Date / Time No Known Allergies Allergy Verified 03/01/19 15:15 Home Medications: Home Meds Isosorbide Mononitrate [Imdur] 30 mg PO DAILY 12/17/16 [History] DULoxetine [Cymbalta] 30 mg PO DAILY 12/23/16 [History] Insulin Aspart [NovoLOG] See Protocol SUBCUT TIDMEALS #0 12/25/16 [Rx] Clopidogrel [Plavix] 75 mg PO DAILY 01/05/19 [History] Insulin Glarg,Human.Rec.Analog [Lantus] 20 unit SUBCUT DAILY 01/05/19 [History] Metoprolol Tartrate 25 mg PO BID 01/05/19 [History] Topiramate 25 mg PO BID 01/05/19 [History] atorvaSTATin [Lipitor] 10 mg PO DAILY 01/05/19 [History] Past Medical History - Past Health History Medical/Surgical History: Denies Medical/Surgical History HEENT History: Reports: None Cardiovascular History: Reports: CAD, Heart Failure, High Cholesterol, Hypertension, MS, Pacemaker Other Cardiovascular History: Valve Problem Respiratory History: Reports: Other (See Below) Other Respiratory History: recently diagnosed with nodules in lungs Gastrointestinal History: Reports: None Genitourinary History: Reports: Chronic Renal Insuffiency Musculoskeletal History: Reports: Back Pain, Chronic Neurological History: Reports: Neuropathy, Diabetic, Other (See Below) Other Neuro History: Intracranial hypertension Psychiatric History: Reports: Anxiety, Depression Endocrine/Metabolic History: Reports: Diabetes, Type I Hematologic History: Reports: None Immunologic History: Reports: None Oncologic (Cancer) History: Reports: None Dermatologic History: Reports: None - Infectious Disease History Infectious Disease History: Reports: Chicken Pox - Past Surgical History Head Surgeries/Procedures: Reports: None HEENT Surgical History: Reports: Oral Surgery Cardiovascular Surgical History: Reports: AICD, Coronary Artery Stent, Other ( See Below) Respiratory Surgical History: Reports: None GI Surgical History: Reports: Cholecystectomy Male Surgical History: Reports: None Endocrine Surgical History: Reports: None Neurological Surgical History: Reports: None Musculoskeletal Surgical History: Reports: None Oncologic Surgical History: Reports: None Dermatological Surgical History: Reports: None Social & Family History - Family History Family Medical History: Noncontributory - Tobacco Use Smoking Status *Q: Never Smoker Second Hand Smoke Exposure: No - Caffeine Use Caffeine Use: Reports: None - Recreational Drug Use Recreational Drug Use: No - Living Situation & Occupation Living situation: Reports: , with Spouse, with Family (2 kids) Occupation: Unemployed H&P Review of Systems - Review of Systems: Review Of Systems: See Below General: Denies: Fever, Chills, Malaise, Weakness, Fatigue, Diaphoresis HEENT: Reports: No Symptoms Pulmonary: Denies: Shortness of Breath, Cough Cardiovascular: Reports: Chest Pain, Lightheadedness, Blood Pressure Problem. Denies: Dyspnea on Exertion, Edema Gastrointestinal: Denies: Constipation, Diarrhea, Decreased Appetite, Nausea, Vomiting Genitourinary: Reports: No Symptoms Musculoskeletal: Reports: No Symptoms Psychiatric: Reports: Anxiety. Denies: Confusion, Depression Neurological: Reports: No Symptoms Exam - Exam Exam: See Below - Vital Signs Vital Signs: Last Vital Signs Temp 97.3 F 03/01/19 15:15 Pulse 86 03/01/19 15:47 Resp 16 03/01/19 15:47 BP 141/93 H 03/01/19 15:47 Pulse Ox 96 03/01/19 15:47 Weight: 190 lb - Exam General: Alert, Oriented, Mild Distress HEENT: EOMI, Mucosa Moist & [place], Pupils Equal, Pupils Reactive Neck: Supple, Trachea Midline Lungs: Clear to Auscultation, Normal Respiratory Effort Cardiovascular: Regular Rate, Regular Rhythm GI/Abdominal Exam: Soft, Non-Tender Back Exam: Normal Inspection Extremities: Normal Inspection, No Pedal Edema Skin: Warm, Dry Neurological: Cranial Nerves Intact Neuro Extensive - Mental Status: Alert, Oriented x3 Psychiatric: Alert, Anxious - Patient Data Lab Results Last 24 hrs: Laboratory Results - last 24 hr 03/01/19 03/01/19 03/01/19 Range/Units 15:09 15:15 15:15 WBC 5.95 (4.0-11.0) K/uL RBC 5.28 (4.50-5.90) M/uL Hgb 16.9 (13.0-17.0) g/dL Hct 47.3 (38.0-50.0) % MCV 89.6 (80.0-98.0) fL MCH 32.0 (27.0-32.0) pg MCHC 35.7 (31.0-37.0) g/dL RDW Std Deviation 39.9 (28.0-62.0) fl RDW Coeff of Charles 12 (11.0-15.0) % Plt Count 205 (150-400) K/uL MPV 10.70 (7.40-12.00) fL Neut % (Auto) 62.6 (48.0-80.0) % Lymph % (Auto) 27.7 (16.0-40.0) % [place] % (Auto) 7.9 (0.0-15.0) % Eos % (Auto) 1.3 (0.0-7.0) % Baso % (Auto) 0.5 (0.0-1.5) % Neut # (Auto) 3.7 (1.4-5.7) K/uL Lymph # (Auto) 1.7 (0.6-2.4) K/uL [place] # (Auto) 0.5 (0.0-0.8) K/uL Eos # (Auto) 0.1 (0.0-0.7) K/uL Baso # (Auto) 0.0 (0.0-0.1) K/uL Nucleated RBC % 0.0 /100WBC Nucleated RBCs # 0 K/uL Sodium 140 (136-148) mmol/L Potassium 4.4 (3.5-5.1) mmol/L Chloride 101 (98-107) mmol/L Carbon Dioxide 27.6 (21.0-32.0) mmol/L BUN 16 (7.0-18.0) mg/dL Creatinine 1.3 (0.8-1.3) mg/dL Est Cr Clr Drug Dosing 75.53 mL/min Estimated GFR (MDRD) 57.5 ml/min Glucose 415 H (74-106) mg/dL Calcium 9.1 (8.5-10.1) mg/dL Total Bilirubin 1.5 H (0.2-1.0) mg/dL AST 12 L (15-37) IU/L ALT 22 (14-63) IU/L Alkaline Phosphatase 107 (46-116) U/L Troponin I < 0.050 (0.000-0.056) ng/mL Total Protein 7.8 (6.4-8.2) g/dL Albumin 4.6 (3.4-5.0) g/dL Globulin 3.2 (2.6-4.0) g/dL Albumin/Globulin Ratio 1.4 (0.9-1.6) Urine Color YELLOW Urine Appearance CLEAR Urine pH 5.5 (5.0-8.0) Ur Specific [place] 1.020 (1.001-1.035) Urine Protein NEGATIVE (NEGATIVE) mg/dL Urine Glucose (UA) >=1000 (NEGATIVE) mg/dL Urine Ketones TRACE H (NEGATIVE) mg/dL Urine Occult Blood NEGATIVE (NEGATIVE) Urine Nitrite NEGATIVE (NEGATIVE) Urine Bilirubin NEGATIVE (NEGATIVE) Urine Urobilinogen 0.2 (<2.0) EU/dL Ur Leukocyte Esterase NEGATIVE (NEGATIVE) Result Diagrams: 03/01/19 15:15 03/01/19 15:15 Sepsis Event Note - Evaluation Sepsis Screening Result: No Definite Risk - Focused Exam Vital Signs: Vital Signs Temp Pulse Pulse Resp BP BP Pulse Ox 03/01/19 15:47 86 16 141/93 H 96 03/01/19 15:31 94 136/90 03/01/19 15:15 97.3 F 116 H 21 H 203/126 H 99 Date Exam was Performed: 03/01/19 Time Exam was Performed: 20:00 Problem List Initiated/Reviewed/Updated: Yes Orders Last 24hrs: Active Orders 24 hr Category Date Time Status Admission Status [Patient Status] [ADT] Stat ADT 03/01/19 18:34 Active Accu Check [Blood Glucose Check, Bedside] [RC] TIDMEALS Care 03/01/19 19:22 Ordered Activity as Tolerated [RC] .Routine Care 03/01/19 19:19 Ordered EKG Documentation Completion [RC] STAT Care 03/01/19 15:09 Active Telemetry Monitoring [Cardiac Monitoring] [RC] . Care 03/01/19 19:20 Ordered DIRECTED CBC WITH AUTO DIFF [HEME] AM Lab 03/02/19 05:11 Ordered COMPREHENSIVE METABOLIC PN,CMP [CHEM] AM Lab 03/02/19 05:11 Ordered MAGNESIUM [CHEM] Routine Lab 03/01/19 19:20 Ordered TROPONIN I [CHEM] Q6H Lab 03/01/19 19:03 Ordered TROPONIN I [CHEM] Q6H Lab 03/02/19 01:03 Ordered Clopidogrel [Plavix] Med 03/01/19 19:30 Ordered 75 mg PO DAILY Insulin Aspart [NovoLOG] Med 03/02/19 07:30 Ordered See Protocol SUBCUT TIDAC Isosorbide Mononitrate [Imdur] Med 03/02/19 09:00 Ordered 30 mg PO DAILY Metoprolol Tartrate [Lopressor] Med 03/01/19 21:00 Ordered 25 mg PO BID Morphine Med 03/01/19 19:22 Ordered 2 mg IVPUSH Q2H PRN Nitroglycerin [Nitrostat] Med 03/01/19 19:22 Ordered 0.4 mg SL Q5M PRN Sodium Chloride 0.9% [Normal Saline] 1,000 ml Med 03/01/19 15:30 Active IV STAT Sodium Chloride 0.9% [Saline Flush] Med 03/01/19 15:09 Active 10 ml FLUSH ASDIRECTED PRN Sodium Chloride 0.9% [Saline Flush] Med 03/01/19 15:09 Active 2.5 ml FLUSH ASDIRECTED PRN atorvaSTATin [Lipitor] Med 03/01/19 19:30 Ordered 10 mg PO DAILY Saline Lock Insert [OM.PC] Stat Oth 03/01/19 15:09 Ordered Code Status [Resuscitation Status] Routine Resus Stat 03/01/19 19:18 Ordered Medication Orders Atorvastatin Calcium (Lipitor) 10 mg PO DAILY [facility] Clopidogrel Bisulfate (Plavix) 75 mg PO DAILY [facility] Sodium Chloride (Normal Saline) 1,000 mls @ 999 mls/hr IV STAT [facility] Last Admin: 03/01/19 15:25 Dose: 999 mls/hr Insulin Aspart (Novolog) 0 unit SUBCUT TIDAC [facility]; Protocol Isosorbide Mononitrate (Imdur) 30 mg PO DAILY [facility] Metoprolol Tartrate (Lopressor) 25 mg PO BID [facility] Morphine Sulfate (Morphine) 2 mg IVPUSH Q2H PRN PRN Reason: Pain Nitroglycerin (Nitrostat) 0.4 mg SL Q5M PRN PRN Reason: Chest Pain Sodium Chloride (Saline Flush) 10 ml FLUSH ASDIRECTED PRN PRN Reason: Keep Vein Open Last Admin: 03/01/19 15:25 Dose: 10 ml Sodium Chloride (Saline Flush) 2.5 ml FLUSH ASDIRECTED PRN PRN Reason: Keep Vein Open Last Admin: 03/01/19 15:24 Dose: 2.5 ml Assessment/Plan Comment:: Assessment: 1. Chest pain/ACS rule out in pt. w/ hx. of NSTEMI/LBBB w. pacemaker 2. Hyperglycemia. 3. Medical non-compliance. 4. PMH: CAD/insulin dependant DM, Anxiety Plan Admit to obs. Full code. Activity up ad kady. DVT prophylaxis: Lovenox 40. GI prophylaxis: pantoprazole 40. 1. Continue to trend troponin q 6hrs. Initial troponin negative. Continue telemetry. Restart Plavix and home meds. MOrphine and nitro for pain control. CXR negative. Continue to monitor. 2. Hyperglycemia: accuchecks+ Novolog TIDAC. Continue to monitor. 3. Medical non-compliance: pt. unsure of which medications he has not been taking; willl advise him to contact family to bring in empty bottles. 4. pt. understood plan.
[2019-03-01] MEDS: atorvaSTATin 10 MG Tab PO SCH (20:33)
[2019-03-01] MEDS: Metoprolol Tartrate 25 MG Tab PO SCH (20:33)
[2019-03-01] MEDS: Pantoprazole 40 MG Tab.CR PO SCH (20:34)
[2019-03-02 06:51] LABS: BLOOD UREA NITROGEN,BUN 13 mg/dL (7.0-18.0); CARBON DIOXIDE,CO2 27.1 mmol/L (21.0-32.0); CHLORIDE,CL 105 mmol/L (98-107); GLUCOSE RANDOM 260 mg/dL (74-106); SODIUM,NA 140 mmol/L (136-148)
[2019-03-02] MEDS ORDERED: Insulin Aspart 100 Units/ML 3 ML Pen SUBCUT SCH (07:30)
--- NOTE | 2019-03-02 07:42 | PCM.DCSUM1 ---
Discharge Summary - Discharge Data Discharge Date: 03/02/19 Discharge Disposition: Home, Self-Care 01 Condition: Good - Referral to Home Health Primary Care Physician: Elder Diez MD - Patient Summary/Data Hospital Course: 53 yo male with pmh of DM, HTN, pacemaker, CAD s/p stenting over a year ago who presented with nonexertional chest pain. Patient thought it may be provoked by anxiety as he has not been able to find work. IN the ED he was noted to to have a blood pressure inthe 200 systolic, EKG showed a paced rhythm. He had stopped taking his metoprolol and statin as he was unable to afford it. He was given nitro and metoprolol in the ED with resolution of his chest pain. HE was monitored overnight on telemetry with no events. His serial cardiac enzymes have been negative. This morning patient is feeling better and is requesting discharge home. He reports he will be able to refill his medications. He is to follow up with Dr Diez. - Discharge Plan Home Medications: Home Meds Isosorbide Mononitrate [Imdur] 30 mg PO DAILY 12/17/16 [History] DULoxetine [Cymbalta] 30 mg PO DAILY 12/23/16 [History] Insulin Aspart [NovoLOG] See Protocol SUBCUT TIDMEALS #0 12/25/16 [Rx] Clopidogrel [Plavix] 75 mg PO DAILY 01/05/19 [History] Insulin Glarg,Human.Rec.Analog [Lantus] 30 unit SUBCUT BEDTIME 01/05/19 [History ] Metoprolol Tartrate 25 mg PO BID 01/05/19 [History] Topiramate 25 mg PO DAILY 01/05/19 [History] atorvaSTATin [Lipitor] 10 mg PO DAILY 01/05/19 [History] - Discharge Summary/Plan Comment DC Time >30 min.: No - Patient Data Vitals - Most Recent: Last Vital Signs Temp 36.8 C 03/02/19 04:30 Pulse 79 03/02/19 04:30 Resp 16 03/02/19 04:30 BP 116/60 03/02/19 04:30 Pulse Ox 95 03/02/19 04:30 Weight - Most Recent: 86.5 kg I&O - Last 24 hours: Intake & Output 03/01/19 03/02/19 03/02/19 22:59 06:59 14:59 Intake Total 800 Output Total 450 Balance 350 Lab Results - Last 24 hrs: Laboratory Results - last 24 hr 03/01/19 03/01/19 03/01/19 Range/Units 15:09 15:15 15:15 WBC 5.95 (4.0-11.0) K/uL RBC 5.28 (4.50-5.90) M/uL Hgb 16.9 (13.0-17.0) g/dL Hct 47.3 (38.0-50.0) % MCV 89.6 (80.0-98.0) fL MCH 32.0 (27.0-32.0) pg MCHC 35.7 (31.0-37.0) g/dL RDW Std Deviation 39.9 (28.0-62.0) fl RDW Coeff of [place] 12 (11.0-15.0) % Plt Count 205 (150-400) K/uL MPV 10.70 (7.40-12.00) fL Neut % (Auto) 62.6 (48.0-80.0) % Lymph % (Auto) 27.7 (16.0-40.0) % [place] % (Auto) 7.9 (0.0-15.0) % Eos % (Auto) 1.3 (0.0-7.0) % Baso % (Auto) 0.5 (0.0-1.5) % Neut # (Auto) 3.7 (1.4-5.7) K/uL Lymph # (Auto) 1.7 (0.6-2.4) K/uL [place] # (Auto) 0.5 (0.0-0.8) K/uL Eos # (Auto) 0.1 (0.0-0.7) K/uL Baso # (Auto) 0.0 (0.0-0.1) K/uL Nucleated RBC % 0.0 /100WBC Nucleated RBCs # 0 K/uL Sodium 140 (136-148) mmol/L Potassium 4.4 (3.5-5.1) mmol/L Chloride 101 (98-107) mmol/L Carbon Dioxide 27.6 (21.0-32.0) mmol/L BUN 16 (7.0-18.0) mg/dL Creatinine 1.3 (0.8-1.3) mg/dL Est Cr Clr Drug Dosing 75.53 mL/min Estimated GFR (MDRD) 57.5 ml/min Glucose 415 H (74-106) mg/dL POC Glucose (60-110) mg/dL Calcium 9.1 (8.5-10.1) mg/dL Magnesium (1.8-2.4) mg/dL Total Bilirubin 1.5 H (0.2-1.0) mg/dL AST 12 L (15-37) IU/L ALT 22 (14-63) IU/L Alkaline Phosphatase 107 (46-116) U/L Troponin I < 0.050 (0.000-0.056) ng/mL Total Protein 7.8 (6.4-8.2) g/dL Albumin 4.6 (3.4-5.0) g/dL Globulin 3.2 (2.6-4.0) g/dL Albumin/Globulin Ratio 1.4 (0.9-1.6) Urine Color YELLOW Urine Appearance CLEAR Urine pH 5.5 (5.0-8.0) Ur Specific [place] 1.020 (1.001-1.035) Urine Protein NEGATIVE (NEGATIVE) mg/dL Urine Glucose (UA) >=1000 (NEGATIVE) mg/dL Urine Ketones TRACE H (NEGATIVE) mg/dL Urine Occult Blood NEGATIVE (NEGATIVE) Urine Nitrite NEGATIVE (NEGATIVE) Urine Bilirubin NEGATIVE (NEGATIVE) Urine Urobilinogen 0.2 (<2.0) EU/dL Ur Leukocyte Esterase NEGATIVE (NEGATIVE) 03/01/19 03/01/19 03/02/19 Range/Units 19:15 19:15 01:12 WBC (4.0-11.0) K/uL RBC (4.50-5.90) M/uL Hgb (13.0-17.0) g/dL Hct (38.0-50.0) % MCV (80.0-98.0) fL MCH (27.0-32.0) pg MCHC (31.0-37.0) g/dL RDW Std Deviation (28.0-62.0) fl RDW Coeff of [place] (11.0-15.0) % Plt Count (150-400) K/uL MPV (7.40-12.00) fL Neut % (Auto) (48.0-80.0) % Lymph % (Auto) (16.0-40.0) % [place] % (Auto) (0.0-15.0) % Eos % (Auto) (0.0-7.0) % Baso % (Auto) (0.0-1.5) % Neut # (Auto) (1.4-5.7) K/uL Lymph # (Auto) (0.6-2.4) K/uL [place] # (Auto) (0.0-0.8) K/uL Eos # (Auto) (0.0-0.7) K/uL Baso # (Auto) (0.0-0.1) K/uL Nucleated RBC % /100WBC Nucleated RBCs # K/uL Sodium (136-148) mmol/L Potassium (3.5-5.1) mmol/L Chloride (98-107) mmol/L Carbon Dioxide (21.0-32.0) mmol/L BUN (7.0-18.0) mg/dL Creatinine (0.8-1.3) mg/dL Est Cr Clr Drug Dosing mL/min Estimated GFR (MDRD) ml/min Glucose (74-106) mg/dL POC Glucose (60-110) mg/dL Calcium (8.5-10.1) mg/dL Magnesium 1.9 (1.8-2.4) mg/dL Total Bilirubin (0.2-1.0) mg/dL AST (15-37) IU/L ALT (14-63) IU/L Alkaline Phosphatase (46-116) U/L Troponin I < 0.050 < 0.050 (0.000-0.056) ng/mL Total Protein (6.4-8.2) g/dL Albumin (3.4-5.0) g/dL Globulin (2.6-4.0) g/dL Albumin/Globulin Ratio (0.9-1.6) Urine Color Urine Appearance Urine pH (5.0-8.0) Ur Specific [place] (1.001-1.035) Urine Protein (NEGATIVE) mg/dL Urine Glucose (UA) (NEGATIVE) mg/dL Urine Ketones (NEGATIVE) mg/dL Urine Occult Blood (NEGATIVE) Urine Nitrite (NEGATIVE) Urine Bilirubin (NEGATIVE) Urine Urobilinogen (<2.0) EU/dL Ur Leukocyte Esterase (NEGATIVE) 03/02/19 03/02/19 03/02/19 Range/Units 06:16 06:16 06:28 WBC 4.42 (4.0-11.0) K/uL RBC 4.84 (4.50-5.90) M/uL Hgb 15.3 (13.0-17.0) g/dL Hct 43.4 (38.0-50.0) % MCV 89.7 (80.0-98.0) fL MCH 31.6 (27.0-32.0) pg MCHC 35.3 (31.0-37.0) g/dL RDW Std Deviation 39.6 (28.0-62.0) fl RDW Coeff of [place] 12 (11.0-15.0) % Plt Count 168 (150-400) K/uL MPV 10.20 (7.40-12.00) fL Neut % (Auto) 52.9 (48.0-80.0) % Lymph % (Auto) 36.2 (16.0-40.0) % [place] % (Auto) 6.1 (0.0-15.0) % Eos % (Auto) 4.3 (0.0-7.0) % Baso % (Auto) 0.5 (0.0-1.5) % Neut # (Auto) 2.3 (1.4-5.7) K/uL Lymph # (Auto) 1.6 (0.6-2.4) K/uL [place] # (Auto) 0.3 (0.0-0.8) K/uL Eos # (Auto) 0.2 (0.0-0.7) K/uL Baso # (Auto) 0.0 (0.0-0.1) K/uL Nucleated RBC % 0.0 /100WBC Nucleated RBCs # 0 K/uL Sodium 140 (136-148) mmol/L Potassium 4.0 (3.5-5.1) mmol/L Chloride 105 (98-107) mmol/L Carbon Dioxide 27.1 (21.0-32.0) mmol/L BUN 13 (7.0-18.0) mg/dL Creatinine 0.9 (0.8-1.3) mg/dL Est Cr Clr Drug Dosing 109.09 mL/min Estimated GFR (MDRD) > 60.0 ml/min Glucose 260 H (74-106) mg/dL POC Glucose 262 H (60-110) mg/dL Calcium 8.3 L (8.5-10.1) mg/dL Magnesium (1.8-2.4) mg/dL Total Bilirubin 1.5 H (0.2-1.0) mg/dL AST 12 L (15-37) IU/L ALT 16 (14-63) IU/L Alkaline Phosphatase 78 (46-116) U/L Troponin I (0.000-0.056) ng/mL Total Protein 6.4 (6.4-8.2) g/dL Albumin 3.6 (3.4-5.0) g/dL Globulin 2.8 (2.6-4.0) g/dL Albumin/Globulin Ratio 1.3 (0.9-1.6) Urine Color Urine Appearance Urine pH (5.0-8.0) Ur Specific [place] (1.001-1.035) Urine Protein (NEGATIVE) mg/dL Urine Glucose (UA) (NEGATIVE) mg/dL Urine Ketones (NEGATIVE) mg/dL Urine Occult Blood (NEGATIVE) Urine Nitrite (NEGATIVE) Urine Bilirubin (NEGATIVE) Urine Urobilinogen (<2.0) EU/dL Ur Leukocyte Esterase (NEGATIVE) Med Orders - Current: Current Medications Atorvastatin Calcium (Lipitor) 10 mg PO DAILY [facility] Last Admin: 03/01/19 20:33 Dose: 10 mg Clopidogrel Bisulfate (Plavix) 75 mg PO DAILY [facility] Sodium Chloride (Normal Saline) 1,000 mls @ 999 mls/hr IV STAT [facility] Last Admin: 03/01/19 15:25 Dose: 999 mls/hr Insulin Aspart (Novolog) 0 unit SUBCUT TIDAC [facility]; Protocol Isosorbide Mononitrate (Imdur) 30 mg PO DAILY [facility] Metoprolol Tartrate (Lopressor) 25 mg PO BID [facility] Last Admin: 03/01/19 20:33 Dose: 25 mg Morphine Sulfate (Morphine) 2 mg IVPUSH Q2H PRN PRN Reason: Pain Last Admin: 03/01/19 21:47 Dose: 2 mg Nitroglycerin (Nitrostat) 0.4 mg SL Q5M PRN PRN Reason: Chest Pain Pantoprazole Sodium (Protonix) 40 mg PO DAILY [facility] Last Admin: 03/01/19 20:34 Dose: 40 mg Sodium Chloride (Saline Flush) 10 ml FLUSH ASDIRECTED PRN PRN Reason: Keep Vein Open Last Admin: 03/01/19 15:25 Dose: 10 ml Sodium Chloride (Saline Flush) 2.5 ml FLUSH ASDIRECTED PRN PRN Reason: Keep Vein Open Last Admin: 03/01/19 15:24 Dose: 2.5 ml Discontinued Medications Aspirin (Aspirin) 324 mg PO ONETIME ONE Stop: 03/01/19 15:19 Last Admin: 03/01/19 15:24 Dose: 324 mg Metoprolol Tartrate (Lopressor) 5 mg IVPUSH ONETIME ONE Stop: 03/01/19 15:27 Last Admin: 03/01/19 15:31 Dose: 5 mg Morphine Sulfate (Morphine) 4 mg IVPUSH ONETIME ONE Stop: 03/01/19 15:35 Last Admin: 03/01/19 15:40 Dose: 4 mg Nitroglycerin (Nitro-Bid 2%) 0.5 gm TOP ONETIME ONE Stop: 03/01/19 15:19 Last Admin: 03/01/19 15:24 Dose: 0.5 gm
[2019-03-02] MEDS ORDERED: Clopidogrel 75 MG Tab PO SCH (09:00)
[2019-03-02] MEDS ORDERED: Isosorbide Mononitrate 60 MG Tab.ER PO SCH (09:00)
[2019-03-02] MEDS: Pantoprazole 40 MG Tab.CR PO SCH (09:14)
[2019-03-02] MEDS: atorvaSTATin 10 MG Tab PO SCH (09:14)
[2019-03-02] MEDS: Metoprolol Tartrate 25 MG Tab PO SCH (09:14)
[2019-03-02 09:17] VITALS: BP 132/72; PULSE 84
== END 2019-03-02 09:00 | disposition home or self-care (01) ==
LOC: MW.ED 15:03 → MW.MS 18:45
PROVIDERS: ADMIT Internal Medicine; ATTEND Internal Medicine
DX: R07.2 Precordial pain (principal); I25.10 Atherosclerotic heart disease of native coronary artery without angina pectoris; I13.0 Hypertensive heart and chronic kidney disease with heart failure and stage 1 through stage 4 chronic kidney disease, or unspecified chronic kidney disease; N18.9 Chronic kidney disease, unspecified; I50.9 Heart failure, unspecified; E10.22 Type 1 diabetes mellitus with diabetic chronic kidney disease; E10.65 Type 1 diabetes mellitus with hyperglycemia; F41.9 Anxiety disorder, unspecified; Z95.5 Presence of coronary angioplasty implant and graft; Z79.899 Other long term (current) drug therapy; Z79.02 Long term (current) use of antithrombotics/antiplatelets; Z79.4 Long term (current) use of insulin; Z91.14 Patient's other noncompliance with medication regimen
CPT/HCPCS: 36415; 71045; 80053; 81003; 82962; 83735; 84484; 85025; 93005; 96361; 96374; 96375; 99285; A9270; J1815; J2270; J3490; J7030

== ENCOUNTER 2019-03-28 13:52 | Emergency (ER) | payer MEDICAID, MEDICARE, OTHER ==
--- NOTE | 2019-03-28 13:58 | EDM.PDOC ---
ED HPI GENERAL MEDICAL PROBLEM - General Chief Complaint: Respiratory Problem Stated Complaint: COUGH FEVER Time Seen by Provider: 03/28/19 13:56 Source of Information: Reports: Patient History Limitations: Reports: No Limitations - History of Present Illness INITIAL COMMENTS - FREE TEXT/NARRATIVE: HISTORY AND PHYSICAL: History of present illness: Patient is a 53-year-old male who presents to the emergency room today with complaints of body aches, subjective fever, sore throat and cough. Patient states he is concerned that he has "an infection deep in my lungs". Patient denies any headache, neck pain or stiffness, change in vision, syncope or near syncope. Denies any chest pain, back pain, shortness of breath. Denies any abdominal pain, nausea, vomiting, diarrhea, constipation or dysuria. Has not noted any blood in urine or stool. Patient has been eating and drinking appropriately. Patient has a past medical history of coronary artery disease, type 1 diabetes, HI, pacemaker and medication noncompliance. Review of systems: As per history of present illness and below otherwise all systems reviewed and negative. Past medical history: As per history of present illness and as reviewed below otherwise noncontributory. Surgical history: As per history of present illness and as reviewed below otherwise noncontributory. Social history: See social history for further information Family history: As per history of present illness and as reviewed below otherwise noncontributory. Physical exam: General: Well-developed and well-nourished 53-year-old male. Alert and oriented. Nontoxic-appearing and in no acute distress. HEENT: Atraumatic, normocephalic, pupils equal and reactive bilaterally, negative for conjunctival pallor or scleral icterus, mucous membranes moist, TMs normal bilaterally, throat erythematous without exudate or soft tissue swelling or fullness, neck supple, nontender, trachea midline. No drooling or trismus noted. No meningeal signs. No hot potato voice noted. Lungs: Clear to auscultation, breath sounds equal bilaterally, chest nontender. Heart: S1S2, regular rate and rhythm without overt murmur Abdomen: Soft, nondistended, nontender. Negative for masses or hepatosplenomegaly. Negative for costovertebral tenderness. Skin: Intact, warm, dry. No lesions or rashes noted. Extremities: Atraumatic, moves all extremities per self without difficulty or deficits, negative for cords or calf pain. Neurovascular unremarkable. Neuro: Awake, alert, oriented. Cranial nerves II through XII unremarkable. Cerebellum unremarkable. Motor and sensory unremarkable throughout. Exam nonfocal. Notes: Chest x-ray, influenza and strep are negative. Due to health history and physical exam I am getting treat with Augmentin. Supportive care measures were reviewed and discussed. Voices understanding and is agreeable to plan of care. Denies any further questions or concerns at this time. Diagnostics: Influenza, strep, chest x-ray Therapeutics: None Prescription: Augmentin Impression: Pharyngitis Bronchitis Plan: 1. Please use Tylenol and/or Ibuprofen as needed for pain and fever management. 2. Get plenty of Rest. Encourage fluids to prevent dehydration. 3. Please follow up with your primary care provider. Return to the ED as needed as discussed. Definitive disposition and diagnosis as appropriate pending reevaluation and review of above. - Related Data Allergies Allergy/AdvReac Type Severity Reaction Status Date / Time No Known Allergies Allergy Verified 03/28/19 13:58 Home Meds: Home Meds Isosorbide Mononitrate [Imdur] 30 mg PO DAILY 12/17/16 [History] DULoxetine [Cymbalta] 30 mg PO DAILY 12/23/16 [History] Insulin Aspart [NovoLOG] See Protocol SUBCUT TIDMEALS #0 12/25/16 [Rx] Clopidogrel [Plavix] 75 mg PO DAILY 01/05/19 [History] Insulin Glarg,Human.Rec.Analog [Lantus] 30 unit SUBCUT BEDTIME 01/05/19 [History ] Metoprolol Tartrate 25 mg PO BID 01/05/19 [History] Topiramate 25 mg PO DAILY 01/05/19 [History] atorvaSTATin [Lipitor] 10 mg PO DAILY 01/05/19 [History] Past Medical History - Past Health History Medical/Surgical History: Denies Medical/Surgical History HEENT History: Reports: None Cardiovascular History: Reports: CAD, Heart Failure, High Cholesterol, Hypertension, HI, Pacemaker Other Cardiovascular History: Valve Problem Respiratory History: Reports: Other (See Below) Other Respiratory History: recently diagnosed with nodules in lungs Gastrointestinal History: Reports: None Genitourinary History: Reports: Chronic Renal Insuffiency Musculoskeletal History: Reports: Back Pain, Chronic Neurological History: Reports: Neuropathy, Diabetic, Other (See Below) Other Neuro History: Intracranial hypertension Psychiatric History: Reports: Anxiety, Depression Endocrine/Metabolic History: Reports: Diabetes, Type I Hematologic History: Reports: None Immunologic History: Reports: None Oncologic (Cancer) History: Reports: None Dermatologic History: Reports: None - Infectious Disease History Infectious Disease History: Reports: Chicken Pox - Past Surgical History Head Surgeries/Procedures: Reports: None HEENT Surgical History: Reports: Oral Surgery Cardiovascular Surgical History: Reports: AICD, Coronary Artery Stent, Other ( See Below) Respiratory Surgical History: Reports: None GI Surgical History: Reports: Cholecystectomy Male Surgical History: Reports: None Endocrine Surgical History: Reports: None Neurological Surgical History: Reports: None Musculoskeletal Surgical History: Reports: None Oncologic Surgical History: Reports: None Dermatological Surgical History: Reports: None Social & Family History - Family History Family Medical History: Noncontributory - Caffeine Use Caffeine Use: Reports: Coffee - Living Situation & Occupation Living situation: Reports: , with Spouse, with Family (2 kids) Occupation: Unemployed ED ROS GENERAL - Review of Systems Review Of Systems: Comprehensive ROS is negative, except as noted in HPI. ED EXAM, GENERAL - Physical Exam Exam: See Below (See dictation) Course - Vital Signs Last Recorded V/S: Last Vital Signs Temp 97.4 F 03/28/19 13:58 Pulse 81 03/28/19 13:58 Resp 18 03/28/19 13:58 BP 99/65 03/28/19 13:58 Pulse Ox 98 03/28/19 13:58 - Orders/Labs/Meds Orders: Active Orders 24 hr Category Date Time Status CULTURE STREP A CONFIRMATION [] Stat Lab 03/28/19 14:22 Results STREP SCRN A RAPID W CULT CONF [RM] Stat Lab 03/28/19 14:22 Results Departure - Departure Time of Disposition: 15:02 Disposition: Home, Self-Care 01 Clinical Impression: Bronchitis Pharyngitis Qualifiers: Pharyngitis/tonsillitis etiology: unspecified etiology Qualified Code(s): J02.9 - Acute pharyngitis, unspecified - Discharge Information Instructions: Acute Bronchitis, Adult, [id number] Referrals: Elder Diez MD [Primary Care Provider] - Forms: ED Department Discharge Additional Instructions: The following information is given to patients seen in the emergency department who are being discharged to home. This information is to outline your options for follow-up care. We provide all patients seen in our emergency department with a follow-up referral. The need for follow-up, as well as the timing and circumstances, are variable depending upon the specifics of your emergency department visit. If you don't have a primary care physician on staff, we will provide you with a referral. We always advise you to contact your personal physician following an emergency department visit to inform them of the circumstance of the visit and for follow-up with them and/or the need for any referrals to a consulting specialist. The emergency department will also refer you to a specialist when appropriate. This referral assures that you have the opportunity for follow-up care with a specialist. All of these measure are taken in an effort to provide you with optimal care, which includes your follow-up. Under all circumstances we always encourage you to contact your private physician who remains a resource for coordinating your care. When calling for follow-up care, please make the office aware that this follow-up is from your recent emergency room visit. If for any reason you are refused follow-up, please contact the [facility] Emergency Department at and asked to speak to the emergency department charge nurse. [facility] [address] [place] [id number] [id number] 1. Please use Tylenol and/or Ibuprofen as needed for pain and fever management. 2. Get plenty of Rest. Encourage fluids to prevent dehydration. 3. Please follow up with your primary care provider. Return to the ED as needed as discussed. Sepsis Event Note - Focused Exam Vital Signs: Vital Signs Temp Pulse Resp BP Pulse Ox 03/28/19 13:58 97.4 F 81 18 99/65 98 Date Exam was Performed: 03/28/19 Time Exam was Performed: 15:01 - My Orders Last 24 Hours: My Active Orders 03/28/19 14:22 CULTURE STREP A CONFIRMATION [] Stat STREP SCRN A RAPID W CULT CONF [RM] Stat - Assessment/Plan Last 24 Hours: My Active Orders 03/28/19 14:22 CULTURE STREP A CONFIRMATION [RM] Stat STREP SCRN A RAPID W CULT CONF [RM] Stat
--- NOTE | 2019-03-28 14:51 | CR ---
Chest: 2 views of the chest were obtained. Comparison: Prior chest x-ray of 03/01/19. Heart size is normal. Upper mediastinum is normal. Epicardial wire is seen. AICD is also noted. Lungs are clear with no acute parenchymal change. Bony structures appear within normal limits for the patient's age. Impression: 1. Nothing acute is seen on 2 view chest x-ray. Diagnostic code #1 This report was dictated in [place] Standard Time
[2019-03-28 15:23] VITALS: BP 100/63; PULSE 86
== END 2019-03-28 15:10 | disposition home or self-care (01) ==
LOC: MW.ED 13:52
DX: J40 Bronchitis, not specified as acute or chronic (principal); J02.9 Acute pharyngitis, unspecified; E10.9 Type 1 diabetes mellitus without complications; I11.0 Hypertensive heart disease with heart failure; I50.9 Heart failure, unspecified; E78.00 Pure hypercholesterolemia, unspecified; I25.10 Atherosclerotic heart disease of native coronary artery without angina pectoris; F41.9 Anxiety disorder, unspecified; F32.9 Major depressive disorder, single episode, unspecified; Z79.899 Other long term (current) drug therapy
CPT/HCPCS: 71046; 71046-26; 87081; 87804; 87880-QW; 93005; 99283; 99284-25

== ENCOUNTER 2019-03-30 14:34 | Inpatient (IN) | payer MEDICAID, MEDICARE ==
[2019-03-30] MEDS ORDERED: Sodium Chloride 0.9% 2,000 ML IV ONE (14:56)
[2019-03-30] MEDS ORDERED: Ondansetron 4 MG/2 ML SDV IVPUSH ONE (14:57)
[2019-03-30 16:04] LABS: BLOOD UREA NITROGEN,BUN 14 mg/dL (7.0-18.0); CHLORIDE,CL 99 mmol/L (98-107); GLUCOSE RANDOM 109 mg/dL (74-106); POTASSIUM,K 3.4 mmol/L (3.5-5.1); SODIUM,NA 139 mmol/L (136-148)
--- NOTE | 2019-03-30 16:11 | CR ---
Chest: Portable view of the chest was obtained. Comparison: Prior chest x-ray of 03/28/19. Findings: Heart size appears within normal limits for portable technique. Tortuous thoracic aorta is noted. Bichamber pacemaker is seen. Epicardial wires are noted. Lungs are clear with no acute parenchymal change. Bony structures are grossly intact. Impression: 1. Findings as noted above. 2. Nothing acute is appreciated. Diagnostic code #1 This report was dictated in [place] Standard Time
[2019-03-30] MEDS ORDERED: Acetaminophen 500 MG Tab PO ONE (16:17)
--- NOTE | 2019-03-30 17:22 | PCM.HP.2 ---
<Mark Pham - Last Filed: 03/30/19 17:56> H&P History of Present Illness - General Admit Problem/Dx: Admission Diagnosis/Problem Admission Diagnosis/Problem Influenza - History of Present Illness Initial Comments - Free Text/Narative: 53-year-old male diagnosed with influenza B 2 days ago who was started on Tamiflu gradually became sicker increased shortness of breath nausea vomiting unable to tolerate p.o. liquid came in short of breath with sinus tachycardia increasingly weak and febrile with productive cough patient felt dizzy denies. Any syncopal episode but did have few near syncopal episode. Pulse oximetry low on room air and sinus tachycardia at 140. Appears sickly and dehydrated - Related Data Allergies/Adverse Reactions: Allergies Allergy/AdvReac Type Severity Reaction Status Date / Time No Known Allergies Allergy Verified 03/30/19 18:26 Home Medications: Home Meds Isosorbide Mononitrate [Imdur] 30 mg PO DAILY 12/17/16 [History] DULoxetine [Cymbalta] 30 mg PO DAILY 12/23/16 [History] Insulin Aspart [NovoLOG] See Protocol SUBCUT TIDMEALS #0 12/25/16 [Rx] Clopidogrel [Plavix] 75 mg PO DAILY 01/05/19 [History] Insulin Glarg,Human.Rec.Analog [Lantus] 30 unit SUBCUT BEDTIME 01/05/19 [History ] Metoprolol Tartrate 25 mg PO BID 01/05/19 [History] Topiramate 25 mg PO DAILY 01/05/19 [History] atorvaSTATin [Lipitor] 10 mg PO DAILY 01/05/19 [History] Amoxicillin/Clavulanate K [Augmentin 875-125 MG] 1 tab PO BID 10 Days #20 tablet 03/28/19 [Rx] Past Medical History Cardiovascular History: Reports: Other (See Below) (History of pacemaker defibrillator, congestive heart failure) H&P Review of Systems - Review of Systems: General: Reports: Fever, Chills HEENT: Reports: Headaches, Sore Throat Pulmonary: Reports: Shortness of Breath, Cough, Sputum Gastrointestinal: Reports: Diarrhea, Nausea, Vomiting Musculoskeletal: Reports: Muscle Pain Hematologic/Lymphatic: Reports: No Symptoms Immunologic: Reports: No Symptoms Exam - Exam Exam: See Below - Vital Signs Vital Signs: Last Vital Signs Temp 98.9 F 03/30/19 17:49 Pulse 106 H 03/30/19 17:49 Resp 16 03/30/19 17:49 BP 121/65 03/30/19 17:49 Pulse Ox 96 03/30/19 17:49 - Exam General: Alert, Moderate Distress HEENT: Conjunctiva Clear, EACs Clear, EOMI, Hearing Intact, Mucosa Moist & [place] , Nares Patent, Normal Nasal Septum, Posterior Pharynx Clear, TMs Clear, Rhinitis, PERRLA Neck: Supple, Trachea Midline, 2 Lungs: Rales, Rhonchi Cardiovascular: Regular Rhythm, Normal S1, Tachycardia GI/Abdominal Exam: Normal Bowel Sounds, Soft, Non-Tender Back Exam: Normal Inspection Extremities: Normal Inspection Skin: Warm, Dry Neurological: Cranial Nerves Intact, Reflexes Equal Bilateral, Normal Gait, Normal Speech Neuro Extensive - Mental Status: Alert, Oriented x3, Normal Mood/Affect Neuro Extensive - Motor, Sensory, Reflexes: CN II-XII Intact, Normal Gait, Normal Reflexes Psychiatric: Alert, Normal Affect - Patient Data Lab Results Last 24 hrs: Laboratory Results - last 24 hr 03/30/19 03/30/19 03/30/19 Range/Units 15:07 15:07 15:07 WBC 6.06 (4.0-11.0) K/uL RBC 5.11 (4.50-5.90) M/uL Hgb 16.6 (13.0-17.0) g/dL Hct 45.8 (38.0-50.0) % MCV 89.6 (80.0-98.0) fL MCH 32.5 H (27.0-32.0) pg MCHC 36.2 (31.0-37.0) g/dL RDW Std Deviation 41.1 (28.0-62.0) fl RDW Coeff of Charles 13 (11.0-15.0) % Plt Count 181 (150-400) K/uL MPV 10.00 (7.40-12.00) fL Neut % (Auto) 74.0 (48.0-80.0) % Lymph % (Auto) 12.9 L (16.0-40.0) % Bonner % (Auto) 12.9 (0.0-15.0) % Eos % (Auto) 0.0 (0.0-7.0) % Baso % (Auto) 0.2 (0.0-1.5) % Neut # (Auto) 4.5 (1.4-5.7) K/uL Lymph # (Auto) 0.8 (0.6-2.4) K/uL Bonner # (Auto) 0.8 (0.0-0.8) K/uL Eos # (Auto) 0.0 (0.0-0.7) K/uL Baso # (Auto) 0.0 (0.0-0.1) K/uL Nucleated RBC % 0.0 /100WBC Nucleated RBCs # 0 K/uL D-Dimer, Quantitative (0.0-0.50) mg/L FEU ABG pH (7.35-7.45) ABG pCO2 (35-45) mmHG ABG pO2 (75-100) mmHG ABG HCO3 (22-26) mEq/L ABG Total CO2 ABG Base Excess (-2.0-2.0) Lactate (0.20-2.00) mmol/L Sodium 139 (136-148) mmol/L Potassium 3.4 L (3.5-5.1) mmol/L Chloride 99 (98-107) mmol/L Carbon Dioxide 27.0 (21.0-32.0) mmol/L BUN 14 (7.0-18.0) mg/dL Creatinine 1.2 (0.8-1.3) mg/dL Est Cr Clr Drug Dosing 81.82 mL/min Estimated GFR (MDRD) > 60.0 ml/min Glucose 109 H (74-106) mg/dL Calcium 9.1 (8.5-10.1) mg/dL Total Bilirubin 1.2 H (0.2-1.0) mg/dL AST 29 (15-37) IU/L ALT 24 (14-63) IU/L Alkaline Phosphatase 84 (46-116) U/L Troponin I < 0.050 (0.000-0.056) ng/mL B-Natriuretic Peptide 6 (<100) PG/ML Total Protein 8.2 (6.4-8.2) g/dL Albumin 4.2 (3.4-5.0) g/dL Globulin 4.0 (2.6-4.0) g/dL Albumin/Globulin Ratio 1.0 (0.9-1.6) 03/30/19 03/30/19 03/30/19 Range/Units 15:07 15:17 16:31 WBC (4.0-11.0) K/uL RBC (4.50-5.90) M/uL Hgb (13.0-17.0) g/dL Hct (38.0-50.0) % MCV (80.0-98.0) fL MCH (27.0-32.0) pg MCHC (31.0-37.0) g/dL RDW Std Deviation (28.0-62.0) fl RDW Coeff of Charles (11.0-15.0) % Plt Count (150-400) K/uL MPV (7.40-12.00) fL Neut % (Auto) (48.0-80.0) % Lymph % (Auto) (16.0-40.0) % Bonner % (Auto) (0.0-15.0) % Eos % (Auto) (0.0-7.0) % Baso % (Auto) (0.0-1.5) % Neut # (Auto) (1.4-5.7) K/uL Lymph # (Auto) (0.6-2.4) K/uL Bonner # (Auto) (0.0-0.8) K/uL Eos # (Auto) (0.0-0.7) K/uL Baso # (Auto) (0.0-0.1) K/uL Nucleated RBC % /100WBC Nucleated RBCs # K/uL D-Dimer, Quantitative 0.68 H (0.0-0.50) mg/L FEU ABG pH 7.446 (7.35-7.45) ABG pCO2 36 (35-45) mmHG ABG pO2 61 L (75-100) mmHG ABG HCO3 25 (22-26) mEq/L ABG Total CO2 21.8 ABG Base Excess 1.1 (-2.0-2.0) Lactate 1.7 (0.20-2.00) mmol/L Sodium (136-148) mmol/L Potassium (3.5-5.1) mmol/L Chloride (98-107) mmol/L Carbon Dioxide (21.0-32.0) mmol/L BUN (7.0-18.0) mg/dL Creatinine (0.8-1.3) mg/dL Est Cr Clr Drug Dosing mL/min Estimated GFR (MDRD) ml/min Glucose (74-106) mg/dL Calcium (8.5-10.1) mg/dL Total Bilirubin (0.2-1.0) mg/dL AST (15-37) IU/L ALT (14-63) IU/L Alkaline Phosphatase (46-116) U/L Troponin I (0.000-0.056) ng/mL B-Natriuretic Peptide (<100) PG/ML Total Protein (6.4-8.2) g/dL Albumin (3.4-5.0) g/dL Globulin (2.6-4.0) g/dL Albumin/Globulin Ratio (0.9-1.6) Result Diagrams: 03/30/19 15:07 03/30/19 15:07 Shin Results Last 24 hrs: Microbiology 03/30/19 15:51 Anaerobic Blood Culture - Final Blood - Venous EKG INTERPRETATION EKG Date: 03/30/19 Rate (Beats/Min): 120 [place]: Normal P-Wave: Present QRS: Normal ST-T: Normal Sepsis Event Note - Focused Exam Vital Signs: Vital Signs Temp Temp Pulse Resp BP Pulse Ox 03/30/19 17:49 98.9 F 106 H 16 121/65 96 03/30/19 17:16 100.0 F 113 H 16 132/70 96 03/30/19 16:25 101.8 F H 03/30/19 16:21 101.8 F H 120 H 14 154/79 H 97 03/30/19 14:49 103.2 F H 140 H 20 134/82 92 L Date Exam was Performed: 03/30/19 Time Exam was Performed: 17:56 Orders Last 24hrs: Active Orders 24 hr Category Date Time Status Admission Status [Patient Status] [ADT] Stat ADT 03/30/19 16:50 Active Antiembolic Devices [RC] PER UNIT ROUTINE Care 03/30/19 17:14 Active Blood Glucose Check, Bedside [RC] TIDMEALS Care 03/30/19 17:14 Active Cardiac Monitoring [RC] . DIRECTED Care 03/30/19 17:14 Active Intake and Output Strict [RC] ASDIRECTED Care 03/30/19 17:16 Active Vital Signs [RC] PER UNIT ROUTINE Care 03/30/19 17:14 Active Heart Healthy Diet [DIET] Diet 03/30/19 Dinner Active CBC WITH AUTO DIFF [HEME] AM Lab 03/31/19 05:11 Ordered COMPREHENSIVE METABOLIC PN,CMP [CHEM] AM Lab 03/31/19 05:11 Ordered CULTURE BLOOD [BC] Stat Lab 03/30/19 15:07 Received CULTURE BLOOD [BC] Stat Lab 03/30/19 15:51 Results INFLUENZA A+B AG SCREEN [RM] Stat Lab 03/30/19 17:09 Ordered UA W/SHIN RFLX IF INDICATED [URIN] Stat Lab 03/30/19 14:59 Ordered Acetaminophen [Tylenol] Med 03/30/19 17:14 Active 650 mg PO Q4H PRN Insulin Aspart [NovoLOG] Med 03/31/19 07:30 Active See Protocol SUBCUT TIDAC Levofloxacin/Dextrose 5%-Water [Levaquin in D5W 750 MG/ Med 03/30/19 17:15 Active 150 ML] 750 mg Premix Bag 1 bag IV Q24H Ondansetron [Zofran] Med 03/30/19 17:14 Active 4 mg IVPUSH Q4H PRN Blood Culture x2 Reflex Set [OM.PC] Stat Oth 03/30/19 15:27 Ordered Sequential Compression Device [OM.PC] Routine Oth 03/30/19 17:14 Ordered Resuscitation Status Routine Resus Stat 03/30/19 17:14 Ordered Medication Orders Acetaminophen (Tylenol) 650 mg PO Q4H PRN PRN Reason: Pain/Fever Levofloxacin/Dextrose 750 mg/ (Premix) 150 mls @ 100 mls/hr IV Q24H ESTEPHANIA Insulin Aspart (Novolog) 0 unit SUBCUT TIDAC ESTEPHANIA; Protocol Ondansetron HCl (Zofran) 4 mg IVPUSH Q4H PRN PRN Reason: Nausea/Vomiting <Georgie Peres - Last Filed: 03/30/19 18:20> H&P History of Present Illness - General Date of Service: 03/30/19 Admit Problem/Dx: Admission Diagnosis/Problem Admission Diagnosis/Problem Influenza - History of Present Illness Initial Comments - Free Text/Narative: The patient is a 53 year old male with past medical history of DMI, HTN, CAD, pacemaker, seizure, and CHF who presents to the ER with fever/chills. Patient reports "flu bug" for the past 3 weeks with fever/chills, SOB, productive cough. Reports RUQ abdominal pain with nausea, vomiting and diarrhea. Hasn't been able to keep anything down for the past 4 days. Hx of CHF, reports orthopnea and 5 lb weight gain, isn't on diuretic and no lower extremity edema. Last echo in the chart was 2016 and showed a EF <20%. Was seen in the ER two days ago with similar complaints, CXR, influenza, and strep test were negative. Sent home on Augmentin. Stated he felt better on the antibiotics but then he couldn't hold the medicine down. In the ER, work up did not show a leukocytosis or anemia. Trop was negative and BNP was 6. Bilirubin was elevated at 1.2 but that seems to be his baseline , AST and ALT wnl. CXR showed no acute cardiopulmonary processes. In the ER, temp was 103.2 came down to 101.8 with Tylenol. Was tachycardic with HR of 140 , EKG showed paced rhythm with HR 121. Requiring oxygen, 97% on 2L. He was also given 2 L bolus and Zofran in ER. PCP- Dr. Diez Throat Pain Score (Numeric/FACES): 10 Past Medical History - Past Health History Medical/Surgical History: Denies Medical/Surgical History HEENT History: Reports: None Cardiovascular History: Reports: CAD, Heart Failure, High Cholesterol, Hypertension, [place], Pacemaker Other Cardiovascular History: Valve Problem Respiratory History: Reports: Other (See Below) Other Respiratory History: recently diagnosed with nodules in lungs Gastrointestinal History: Reports: None Genitourinary History: Reports: Chronic Renal Insuffiency Musculoskeletal History: Reports: Back Pain, Chronic Neurological History: Reports: Neuropathy, Diabetic, Other (See Below) Other Neuro History: Intracranial hypertension Psychiatric History: Reports: Anxiety, Depression Endocrine/Metabolic History: Reports: Diabetes, Type I Hematologic History: Reports: None Immunologic History: Reports: None Oncologic (Cancer) History: Reports: None Dermatologic History: Reports: None - Infectious Disease History Infectious Disease History: Reports: Influenza - Past Surgical History Head Surgeries/Procedures: Reports: None HEENT Surgical History: Reports: Oral Surgery Cardiovascular Surgical History: Reports: AICD, Coronary Artery Stent, Other ( See Below) Respiratory Surgical History: Reports: None GI Surgical History: Reports: Cholecystectomy Male Surgical History: Reports: None Endocrine Surgical History: Reports: None Neurological Surgical History: Reports: None Musculoskeletal Surgical History: Reports: None Oncologic Surgical History: Reports: None Dermatological Surgical History: Reports: None Social & Family History - Family History Family Medical History: Noncontributory - Tobacco Use Smoking Status *Q: Never Smoker Second Hand Smoke Exposure: No - Caffeine Use Caffeine Use: Reports: None - Recreational Drug Use Recreational Drug Use: No - Living Situation & Occupation Living situation: Reports: , with Spouse, with Family (2 kids) Occupation: Unemployed H&P Review of Systems - Review of Systems: Review Of Systems: See Below General: Reports: Fever, Chills, Fatigue HEENT: Reports: Headaches, Sore Throat. Denies: Sinus Congestion Pulmonary: Reports: Shortness of Breath, Cough, Sputum Cardiovascular: Reports: Orthopnea. Denies: Chest Pain Gastrointestinal: Reports: Abdominal Pain, Diarrhea, Nausea, Vomiting. Denies: Black Stool, Bloody Stool Genitourinary: Reports: No Symptoms Musculoskeletal: Reports: No Symptoms Skin: Reports: No Symptoms Psychiatric: Reports: No Symptoms Neurological: Reports: No Symptoms Hematologic/Lymphatic: Reports: No Symptoms Immunologic: Reports: No Symptoms Exam - Exam Exam: See Below - Vital Signs Vital Signs: Last Vital Signs Temp 100.0 F 03/30/19 17:16 Pulse 113 H 03/30/19 17:16 Resp 16 03/30/19 17:16 BP 132/70 03/30/19 17:16 Pulse Ox 96 03/30/19 17:16 Weight: 86.183 kg - Exam Quality Assessment: Supplemental Oxygen General: Alert, Oriented, Cooperative HEENT: EOMI, Posterior Pharynx Clear, Pupils Equal, Pupils Reactive. No: Mucosa Moist & [place] Neck: Supple Lungs: Normal Respiratory Effort, Crackles Cardiovascular: Regular Rhythm, Tachycardia GI/Abdominal Exam: Normal Bowel Sounds, Soft, Tender (RUQ). No: Guarding, Rigid , Rebound Extremities: No Pedal Edema Skin: Warm, Dry, Intact Psychiatric: Alert, Normal Affect, Normal Mood - Patient Data Lab Results Last 24 hrs: Laboratory Results - last 24 hr 03/30/19 03/30/19 03/30/19 Range/Units 15:07 15:07 15:07 WBC 6.06 (4.0-11.0) K/uL RBC 5.11 (4.50-5.90) M/uL Hgb 16.6 (13.0-17.0) g/dL Hct 45.8 (38.0-50.0) % MCV 89.6 (80.0-98.0) fL MCH 32.5 H (27.0-32.0) pg MCHC 36.2 (31.0-37.0) g/dL RDW Std Deviation 41.1 (28.0-62.0) fl RDW Coeff of Charles 13 (11.0-15.0) % Plt Count 181 (150-400) K/uL MPV 10.00 (7.40-12.00) fL Neut % (Auto) 74.0 (48.0-80.0) % Lymph % (Auto) 12.9 L (16.0-40.0) % Bonner % (Auto) 12.9 (0.0-15.0) % Eos % (Auto) 0.0 (0.0-7.0) % Baso % (Auto) 0.2 (0.0-1.5) % Neut # (Auto) 4.5 (1.4-5.7) K/uL Lymph # (Auto) 0.8 (0.6-2.4) K/uL Bonner # (Auto) 0.8 (0.0-0.8) K/uL Eos # (Auto) 0.0 (0.0-0.7) K/uL Baso # (Auto) 0.0 (0.0-0.1) K/uL Nucleated RBC % 0.0 /100WBC Nucleated RBCs # 0 K/uL ABG pH (7.35-7.45) ABG pCO2 (35-45) mmHG ABG pO2 (75-100) mmHG ABG HCO3 (22-26) mEq/L ABG Total CO2 ABG Base Excess (-2.0-2.0) Sodium 139 (136-148) mmol/L Potassium 3.4 L (3.5-5.1) mmol/L Chloride 99 (98-107) mmol/L Carbon Dioxide 27.0 (21.0-32.0) mmol/L BUN 14 (7.0-18.0) mg/dL Creatinine 1.2 (0.8-1.3) mg/dL Est Cr Clr Drug Dosing 81.82 mL/min Estimated GFR (MDRD) > 60.0 ml/min Glucose 109 H (74-106) mg/dL Calcium 9.1 (8.5-10.1) mg/dL Total Bilirubin 1.2 H (0.2-1.0) mg/dL AST 29 (15-37) IU/L ALT 24 (14-63) IU/L Alkaline Phosphatase 84 (46-116) U/L Troponin I < 0.050 (0.000-0.056) ng/mL B-Natriuretic Peptide 6 (<100) PG/ML Total Protein 8.2 (6.4-8.2) g/dL Albumin 4.2 (3.4-5.0) g/dL Globulin 4.0 (2.6-4.0) g/dL Albumin/Globulin Ratio 1.0 (0.9-1.6) 03/30/19 Range/Units 15:17 WBC (4.0-11.0) K/uL RBC (4.50-5.90) M/uL Hgb (13.0-17.0) g/dL Hct (38.0-50.0) % MCV (80.0-98.0) fL MCH (27.0-32.0) pg MCHC (31.0-37.0) g/dL RDW Std Deviation (28.0-62.0) fl RDW Coeff of Charles (11.0-15.0) % Plt Count (150-400) K/uL MPV (7.40-12.00) fL Neut % (Auto) (48.0-80.0) % Lymph % (Auto) (16.0-40.0) % Bonner % (Auto) (0.0-15.0) % Eos % (Auto) (0.0-7.0) % Baso % (Auto) (0.0-1.5) % Neut # (Auto) (1.4-5.7) K/uL Lymph # (Auto) (0.6-2.4) K/uL Bonner # (Auto) (0.0-0.8) K/uL Eos # (Auto) (0.0-0.7) K/uL Baso # (Auto) (0.0-0.1) K/uL Nucleated RBC % /100WBC Nucleated RBCs # K/uL ABG pH 7.446 (7.35-7.45) ABG pCO2 36 (35-45) mmHG ABG pO2 61 L (75-100) mmHG ABG HCO3 25 (22-26) mEq/L ABG Total CO2 21.8 ABG Base Excess 1.1 (-2.0-2.0) Sodium (136-148) mmol/L Potassium (3.5-5.1) mmol/L Chloride (98-107) mmol/L Carbon Dioxide (21.0-32.0) mmol/L BUN (7.0-18.0) mg/dL Creatinine (0.8-1.3) mg/dL Est Cr Clr Drug Dosing mL/min Estimated GFR (MDRD) ml/min Glucose (74-106) mg/dL Calcium (8.5-10.1) mg/dL Total Bilirubin (0.2-1.0) mg/dL AST (15-37) IU/L ALT (14-63) IU/L Alkaline Phosphatase (46-116) U/L Troponin I (0.000-0.056) ng/mL B-Natriuretic Peptide (<100) PG/ML Total Protein (6.4-8.2) g/dL Albumin (3.4-5.0) g/dL Globulin (2.6-4.0) g/dL Albumin/Globulin Ratio (0.9-1.6) Result Diagrams: 03/30/19 15:07 03/30/19 15:07 Shin Results Last 24 hrs: Microbiology 03/30/19 15:51 Anaerobic Blood Culture - Final Blood - Venous Sepsis Event Note - Evaluation Sepsis Screening Result: No Definite Risk - Focused Exam Vital Signs: Vital Signs Temp Temp Pulse Resp BP Pulse Ox 03/30/19 17:16 100.0 F 113 H 16 132/70 96 03/30/19 16:25 101.8 F H 03/30/19 16:21 101.8 F H 120 H 14 154/79 H 97 03/30/19 14:49 103.2 F H 140 H 20 134/82 92 L Date Exam was Performed: 03/30/19 Time Exam was Performed: 18:20 Problem List Initiated/Reviewed/Updated: Yes Orders Last 24hrs: Active Orders 24 hr Category Date Time Status Admission Status [Patient Status] [ADT] Stat ADT 03/30/19 16:50 Active Antiembolic Devices [RC] PER UNIT ROUTINE Care 03/30/19 17:14 Ordered Blood Glucose Check, Bedside [RC] TIDMEALS Care 03/30/19 17:14 Ordered Cardiac Monitoring [RC] . DIRECTED Care 03/30/19 17:14 Ordered Intake and Output Strict [RC] ASDIRECTED Care 03/30/19 17:16 Ordered Vital Signs [RC] PER UNIT ROUTINE Care 03/30/19 17:14 Ordered Heart Healthy Diet [DIET] Diet 03/30/19 Dinner Ordered CULTURE BLOOD [BC] Stat Lab 03/30/19 15:07 Received CULTURE BLOOD [BC] Stat Lab 03/30/19 15:51 Results D-DIMER QUANTITATIVE [COAG] Stat Lab 03/30/19 17:09 Ordered INFLUENZA A+B AG SCREEN [RM] Stat Lab 03/30/19 17:09 Ordered UA W/SHIN RFLX IF INDICATED [URIN] Stat Lab 03/30/19 14:59 Ordered Acetaminophen [Tylenol] Med 03/30/19 17:14 Ordered 650 mg PO Q4H PRN Insulin Aspart [NovoLOG] Med 03/31/19 07:30 Ordered See Protocol SUBCUT TIDAC Levofloxacin/Dextrose 5%-Water [Levaquin in D5W 750 MG/ Med 03/30/19 17:15 Ordered 150 ML] 750 mg Premix Bag 1 bag IV Q24H Ondansetron [Zofran] Med 03/30/19 17:14 Ordered 4 mg IVPUSH Q4H PRN Blood Culture x2 Reflex Set [OM.PC] Stat Oth 03/30/19 15:27 Ordered Sequential Compression Device [OM.PC] Routine Oth 03/30/19 17:14 Ordered Resuscitation Status Routine Resus Stat 03/30/19 17:14 Ordered Medication Orders Acetaminophen (Tylenol) 650 mg PO Q4H PRN PRN Reason: Pain/Fever Levofloxacin/Dextrose 750 mg/ (Premix) 150 mls @ 100 mls/hr IV Q24H ESTEPHANIA Insulin Aspart (Novolog) 0 unit SUBCUT TIDAC ESTEPHANIA; Protocol Ondansetron HCl (Zofran) 4 mg IVPUSH Q4H PRN PRN Reason: Nausea/Vomiting Assessment/Plan Comment:: 1. Admit to inpatient 2. Code status- full 3. Vitals per routine 4. I/Os strict 5. Diet-heart healthy 6. DVT prophylaxis with SCDs 7. Fever/tachycardia/hypoxia- UA and BC pending. Will obtain D-dimer, if positive will get CTA chest. Will check for influenza and get lactate level. Start Levaquin. Start Tamiflu if influenza positive. Monitor on telemtry. 8. RUQ pain with nausea/vomiting/diarrhea- consider US tomorrow if pain continues or elevation in LFTs. Zofran for nausea/vomiting. 9. DMI- accuchecks, home Lantus, sliding scale 10. CAD/HTN/CHF- continue home meds, monitor on telemetry, monitor for signs of fluid overload. Strict I/Os and daily weights. <Jovany Spaulding - Last Filed: 03/31/19 12:37> H&P History of Present Illness - General Admit Problem/Dx: Admission Diagnosis/Problem Admission Diagnosis/Problem Influenza Exam - Vital Signs Vital Signs: Last Vital Signs Temp 36.8 C 03/31/19 12:15 Pulse 86 03/31/19 12:15 Resp 18 03/31/19 12:15 BP 115/61 03/31/19 12:15 Pulse Ox 93 L 03/31/19 12:15 - Patient Data Lab Results Last 24 hrs: Laboratory Results - last 24 hr 03/30/19 03/30/19 03/30/19 Range/Units 15:07 15:07 15:07 WBC 6.06 (4.0-11.0) K/uL RBC 5.11 (4.50-5.90) M/uL Hgb 16.6 (13.0-17.0) g/dL Hct 45.8 (38.0-50.0) % MCV 89.6 (80.0-98.0) fL MCH 32.5 H (27.0-32.0) pg MCHC 36.2 (31.0-37.0) g/dL RDW Std Deviation 41.1 (28.0-62.0) fl RDW Coeff of Charles 13 (11.0-15.0) % Plt Count 181 (150-400) K/uL MPV 10.00 (7.40-12.00) fL Neut % (Auto) 74.0 (48.0-80.0) % Lymph % (Auto) 12.9 L (16.0-40.0) % Bonner % (Auto) 12.9 (0.0-15.0) % Eos % (Auto) 0.0 (0.0-7.0) % Baso % (Auto) 0.2 (0.0-1.5) % Neut # (Auto) 4.5 (1.4-5.7) K/uL Lymph # (Auto) 0.8 (0.6-2.4) K/uL Bonner # (Auto) 0.8 (0.0-0.8) K/uL Eos # (Auto) 0.0 (0.0-0.7) K/uL Baso # (Auto) 0.0 (0.0-0.1) K/uL Nucleated RBC % 0.0 /100WBC Nucleated RBCs # 0 K/uL D-Dimer, Quantitative (0.0-0.50) mg/L FEU ABG pH (7.35-7.45) ABG pCO2 (35-45) mmHG ABG pO2 (75-100) mmHG ABG HCO3 (22-26) mEq/L ABG Total CO2 ABG Base Excess (-2.0-2.0) Lactate (0.20-2.00) mmol/L Sodium 139 (136-148) mmol/L Potassium 3.4 L (3.5-5.1) mmol/L Chloride 99 (98-107) mmol/L Carbon Dioxide 27.0 (21.0-32.0) mmol/L BUN 14 (7.0-18.0) mg/dL Creatinine 1.2 (0.8-1.3) mg/dL Est Cr Clr Drug Dosing 81.82 mL/min Estimated GFR (MDRD) > 60.0 ml/min Glucose 109 H (74-106) mg/dL POC Glucose (60-110) mg/dL Calcium 9.1 (8.5-10.1) mg/dL Total Bilirubin 1.2 H (0.2-1.0) mg/dL AST 29 (15-37) IU/L ALT 24 (14-63) IU/L Alkaline Phosphatase 84 (46-116) U/L Troponin I < 0.050 (0.000-0.056) ng/mL B-Natriuretic Peptide 6 (<100) PG/ML Total Protein 8.2 (6.4-8.2) g/dL Albumin 4.2 (3.4-5.0) g/dL Globulin 4.0 (2.6-4.0) g/dL Albumin/Globulin Ratio 1.0 (0.9-1.6) Urine Color Urine Appearance Urine pH (5.0-8.0) Ur Specific [place] (1.001-1.035) Urine Protein (NEGATIVE) mg/dL Urine Glucose (UA) (NEGATIVE) mg/dL Urine Ketones (NEGATIVE) mg/dL Urine Occult Blood (NEGATIVE) Urine Nitrite (NEGATIVE) Urine Bilirubin (NEGATIVE) Urine Ictotest Urine Urobilinogen (<2.0) EU/dL Ur Leukocyte Esterase (NEGATIVE) Urine RBC (0-2/HPF) Urine WBC (0-5/HPF) Ur Epithelial Cells (NONE-FEW) Urine Bacteria (NEGATIVE) Urine Mucus (NONE-MOD) 03/30/19 03/30/19 03/30/19 Range/Units 15:07 15:17 16:31 WBC (4.0-11.0) K/uL RBC (4.50-5.90) M/uL Hgb (13.0-17.0) g/dL Hct (38.0-50.0) % MCV (80.0-98.0) fL MCH (27.0-32.0) pg MCHC (31.0-37.0) g/dL RDW Std Deviation (28.0-62.0) fl RDW Coeff of Charles (11.0-15.0) % Plt Count (150-400) K/uL MPV (7.40-12.00) fL Neut % (Auto) (48.0-80.0) % Lymph % (Auto) (16.0-40.0) % Bonner % (Auto) (0.0-15.0) % Eos % (Auto) (0.0-7.0) % Baso % (Auto) (0.0-1.5) % Neut # (Auto) (1.4-5.7) K/uL Lymph # (Auto) (0.6-2.4) K/uL Bonner # (Auto) (0.0-0.8) K/uL Eos # (Auto) (0.0-0.7) K/uL Baso # (Auto) (0.0-0.1) K/uL Nucleated RBC % /100WBC Nucleated RBCs # K/uL D-Dimer, Quantitative 0.68 H (0.0-0.50) mg/L FEU ABG pH 7.446 (7.35-7.45) ABG pCO2 36 (35-45) mmHG ABG pO2 61 L (75-100) mmHG ABG HCO3 25 (22-26) mEq/L ABG Total CO2 21.8 ABG Base Excess 1.1 (-2.0-2.0) Lactate 1.7 (0.20-2.00) mmol/L Sodium (136-148) mmol/L Potassium (3.5-5.1) mmol/L Chloride (98-107) mmol/L Carbon Dioxide (21.0-32.0) mmol/L BUN (7.0-18.0) mg/dL Creatinine (0.8-1.3) mg/dL Est Cr Clr Drug Dosing mL/min Estimated GFR (MDRD) ml/min Glucose (74-106) mg/dL POC Glucose (60-110) mg/dL Calcium (8.5-10.1) mg/dL Total Bilirubin (0.2-1.0) mg/dL AST (15-37) IU/L ALT (14-63) IU/L Alkaline Phosphatase (46-116) U/L Troponin I (0.000-0.056) ng/mL B-Natriuretic Peptide (<100) PG/ML Total Protein (6.4-8.2) g/dL Albumin (3.4-5.0) g/dL Globulin (2.6-4.0) g/dL Albumin/Globulin Ratio (0.9-1.6) Urine Color Urine Appearance Urine pH (5.0-8.0) Ur Specific [place] (1.001-1.035) Urine Protein (NEGATIVE) mg/dL Urine Glucose (UA) (NEGATIVE) mg/dL Urine Ketones (NEGATIVE) mg/dL Urine Occult Blood (NEGATIVE) Urine Nitrite (NEGATIVE) Urine Bilirubin (NEGATIVE) Urine Ictotest Urine Urobilinogen (<2.0) EU/dL Ur Leukocyte Esterase (NEGATIVE) Urine RBC (0-2/HPF) Urine WBC (0-5/HPF) Ur Epithelial Cells (NONE-FEW) Urine Bacteria (NEGATIVE) Urine Mucus (NONE-MOD) 03/30/19 03/30/19 03/30/19 Range/Units 22:20 22:23 23:16 WBC (4.0-11.0) K/uL RBC (4.50-5.90) M/uL Hgb (13.0-17.0) g/dL Hct (38.0-50.0) % MCV (80.0-98.0) fL MCH (27.0-32.0) pg MCHC (31.0-37.0) g/dL RDW Std Deviation (28.0-62.0) fl RDW Coeff of Charles (11.0-15.0) % Plt Count (150-400) K/uL MPV (7.40-12.00) fL Neut % (Auto) (48.0-80.0) % Lymph % (Auto) (16.0-40.0) % Bonner % (Auto) (0.0-15.0) % Eos % (Auto) (0.0-7.0) % Baso % (Auto) (0.0-1.5) % Neut # (Auto) (1.4-5.7) K/uL Lymph # (Auto) (0.6-2.4) K/uL Bonner # (Auto) (0.0-0.8) K/uL Eos # (Auto) (0.0-0.7) K/uL Baso # (Auto) (0.0-0.1) K/uL Nucleated RBC % /100WBC Nucleated RBCs # K/uL D-Dimer, Quantitative (0.0-0.50) mg/L FEU ABG pH (7.35-7.45) ABG pCO2 (35-45) mmHG ABG pO2 (75-100) mmHG ABG HCO3 (22-26) mEq/L ABG Total CO2 ABG Base Excess (-2.0-2.0) Lactate (0.20-2.00) mmol/L Sodium (136-148) mmol/L Potassium (3.5-5.1) mmol/L Chloride (98-107) mmol/L Carbon Dioxide (21.0-32.0) mmol/L BUN (7.0-18.0) mg/dL Creatinine (0.8-1.3) mg/dL Est Cr Clr Drug Dosing mL/min Estimated GFR (MDRD) ml/min Glucose (74-106) mg/dL POC Glucose 65 67 (60-110) mg/dL Calcium (8.5-10.1) mg/dL Total Bilirubin (0.2-1.0) mg/dL AST (15-37) IU/L ALT (14-63) IU/L Alkaline Phosphatase (46-116) U/L Troponin I (0.000-0.056) ng/mL B-Natriuretic Peptide (<100) PG/ML Total Protein (6.4-8.2) g/dL Albumin (3.4-5.0) g/dL Globulin (2.6-4.0) g/dL Albumin/Globulin Ratio (0.9-1.6) Urine Color DARK YELLOW Urine Appearance CLEAR Urine pH 5.5 (5.0-8.0) Ur Specific [place] >= 1.030 (1.001-1.035) Urine Protein 30 H (NEGATIVE) mg/dL Urine Glucose (UA) NEGATIVE (NEGATIVE) mg/dL Urine Ketones 15 H (NEGATIVE) mg/dL Urine Occult Blood NEGATIVE (NEGATIVE) Urine Nitrite NEGATIVE (NEGATIVE) Urine Bilirubin SMALL H (NEGATIVE) Urine Ictotest NEGATIVE Urine Urobilinogen 0.2 (<2.0) EU/dL Ur Leukocyte Esterase NEGATIVE (NEGATIVE) Urine RBC NONE SEEN (0-2/HPF) Urine WBC 0-1 (0-5/HPF) Ur Epithelial Cells RARE (NONE-FEW) Urine Bacteria 1+ H (NEGATIVE) Urine Mucus LIGHT (NONE-MOD) 03/30/19 03/31/19 03/31/19 Range/Units 23:45 04:43 04:43 WBC 4.28 (4.0-11.0) K/uL RBC 4.32 L (4.50-5.90) M/uL Hgb 13.7 (13.0-17.0) g/dL Hct 39.1 (38.0-50.0) % MCV 90.5 (80.0-98.0) fL MCH 31.7 (27.0-32.0) pg MCHC 35.0 (31.0-37.0) g/dL RDW Std Deviation 41.5 (28.0-62.0) fl RDW Coeff of Charles 13 (11.0-15.0) % Plt Count 163 (150-400) K/uL MPV 10.00 (7.40-12.00) fL Neut % (Auto) 67.5 (48.0-80.0) % Lymph % (Auto) 19.9 (16.0-40.0) % Bonner % (Auto) 12.4 (0.0-15.0) % Eos % (Auto) 0.0 (0.0-7.0) % Baso % (Auto) 0.2 (0.0-1.5) % Neut # (Auto) 2.9 (1.4-5.7) K/uL Lymph # (Auto) 0.9 (0.6-2.4) K/uL Bonner # (Auto) 0.5 (0.0-0.8) K/uL Eos # (Auto) 0.0 (0.0-0.7) K/uL Baso # (Auto) 0.0 (0.0-0.1) K/uL Nucleated RBC % 0.0 /100WBC Nucleated RBCs # 0 K/uL D-Dimer, Quantitative (0.0-0.50) mg/L FEU ABG pH (7.35-7.45) ABG pCO2 (35-45) mmHG ABG pO2 (75-100) mmHG ABG HCO3 (22-26) mEq/L ABG Total CO2 ABG Base Excess (-2.0-2.0) Lactate (0.20-2.00) mmol/L Sodium 141 (136-148) mmol/L Potassium 3.6 (3.5-5.1) mmol/L Chloride 104 (98-107) mmol/L Carbon Dioxide 29.2 (21.0-32.0) mmol/L BUN 12 (7.0-18.0) mg/dL Creatinine 1.0 (0.8-1.3) mg/dL Est Cr Clr Drug Dosing 98.18 mL/min Estimated GFR (MDRD) > 60.0 ml/min Glucose 75 (74-106) mg/dL POC Glucose 76 (60-110) mg/dL Calcium 7.9 L (8.5-10.1) mg/dL Total Bilirubin 0.8 (0.2-1.0) mg/dL AST 27 (15-37) IU/L ALT 21 (14-63) IU/L Alkaline Phosphatase 58 (46-116) U/L Troponin I (0.000-0.056) ng/mL B-Natriuretic Peptide (<100) PG/ML Total Protein 6.3 L (6.4-8.2) g/dL Albumin 3.0 L (3.4-5.0) g/dL Globulin 3.3 (2.6-4.0) g/dL Albumin/Globulin Ratio 0.9 (0.9-1.6) Urine Color Urine Appearance Urine pH (5.0-8.0) Ur Specific [place] (1.001-1.035) Urine Protein (NEGATIVE) mg/dL Urine Glucose (UA) (NEGATIVE) mg/dL Urine Ketones (NEGATIVE) mg/dL Urine Occult Blood (NEGATIVE) Urine Nitrite (NEGATIVE) Urine Bilirubin (NEGATIVE) Urine Ictotest Urine Urobilinogen (<2.0) EU/dL Ur Leukocyte Esterase (NEGATIVE) Urine RBC (0-2/HPF) Urine WBC (0-5/HPF) Ur Epithelial Cells (NONE-FEW) Urine Bacteria (NEGATIVE) Urine Mucus (NONE-MOD) 03/31/19 03/31/19 03/31/19 Range/Units 06:09 07:50 09:17 WBC (4.0-11.0) K/uL RBC (4.50-5.90) M/uL Hgb (13.0-17.0) g/dL Hct (38.0-50.0) % MCV (80.0-98.0) fL MCH (27.0-32.0) pg MCHC (31.0-37.0) g/dL RDW Std Deviation (28.0-62.0) fl RDW Coeff of Charles (11.0-15.0) % Plt Count (150-400) K/uL MPV (7.40-12.00) fL Neut % (Auto) (48.0-80.0) % Lymph % (Auto) (16.0-40.0) % Bonner % (Auto) (0.0-15.0) % Eos % (Auto) (0.0-7.0) % Baso % (Auto) (0.0-1.5) % Neut # (Auto) (1.4-5.7) K/uL Lymph # (Auto) (0.6-2.4) K/uL Bonner # (Auto) (0.0-0.8) K/uL Eos # (Auto) (0.0-0.7) K/uL Baso # (Auto) (0.0-0.1) K/uL Nucleated RBC % /100WBC Nucleated RBCs # K/uL D-Dimer, Quantitative (0.0-0.50) mg/L FEU ABG pH (7.35-7.45) ABG pCO2 (35-45) mmHG ABG pO2 (75-100) mmHG ABG HCO3 (22-26) mEq/L ABG Total CO2 ABG Base Excess (-2.0-2.0) Lactate (0.20-2.00) mmol/L Sodium (136-148) mmol/L Potassium (3.5-5.1) mmol/L Chloride (98-107) mmol/L Carbon Dioxide (21.0-32.0) mmol/L BUN (7.0-18.0) mg/dL Creatinine (0.8-1.3) mg/dL Est Cr Clr Drug Dosing mL/min Estimated GFR (MDRD) ml/min Glucose (74-106) mg/dL POC Glucose 50 L 55 L 135 H (60-110) mg/dL Calcium (8.5-10.1) mg/dL Total Bilirubin (0.2-1.0) mg/dL AST (15-37) IU/L ALT (14-63) IU/L Alkaline Phosphatase (46-116) U/L Troponin I (0.000-0.056) ng/mL B-Natriuretic Peptide (<100) PG/ML Total Protein (6.4-8.2) g/dL Albumin (3.4-5.0) g/dL Globulin (2.6-4.0) g/dL Albumin/Globulin Ratio (0.9-1.6) Urine Color Urine Appearance Urine pH (5.0-8.0) Ur Specific [place] (1.001-1.035) Urine Protein (NEGATIVE) mg/dL Urine Glucose (UA) (NEGATIVE) mg/dL Urine Ketones (NEGATIVE) mg/dL Urine Occult Blood (NEGATIVE) Urine Nitrite (NEGATIVE) Urine Bilirubin (NEGATIVE) Urine Ictotest Urine Urobilinogen (<2.0) EU/dL Ur Leukocyte Esterase (NEGATIVE) Urine RBC (0-2/HPF) Urine WBC (0-5/HPF) Ur Epithelial Cells (NONE-FEW) Urine Bacteria (NEGATIVE) Urine Mucus (NONE-MOD) 03/31/19 Range/Units 12:17 WBC (4.0-11.0) K/uL RBC (4.50-5.90) M/uL Hgb (13.0-17.0) g/dL Hct (38.0-50.0) % MCV (80.0-98.0) fL MCH (27.0-32.0) pg MCHC (31.0-37.0) g/dL RDW Std Deviation (28.0-62.0) fl RDW Coeff of Charles (11.0-15.0) % Plt Count (150-400) K/uL MPV (7.40-12.00) fL Neut % (Auto) (48.0-80.0) % Lymph % (Auto) (16.0-40.0) % Bonner % (Auto) (0.0-15.0) % Eos % (Auto) (0.0-7.0) % Baso % (Auto) (0.0-1.5) % Neut # (Auto) (1.4-5.7) K/uL Lymph # (Auto) (0.6-2.4) K/uL Bonner # (Auto) (0.0-0.8) K/uL Eos # (Auto) (0.0-0.7) K/uL Baso # (Auto) (0.0-0.1) K/uL Nucleated RBC % /100WBC Nucleated RBCs # K/uL D-Dimer, Quantitative (0.0-0.50) mg/L FEU ABG pH (7.35-7.45) ABG pCO2 (35-45) mmHG ABG pO2 (75-100) mmHG ABG HCO3 (22-26) mEq/L ABG Total CO2 ABG Base Excess (-2.0-2.0) Lactate (0.20-2.00) mmol/L Sodium (136-148) mmol/L Potassium (3.5-5.1) mmol/L Chloride (98-107) mmol/L Carbon Dioxide (21.0-32.0) mmol/L BUN (7.0-18.0) mg/dL Creatinine (0.8-1.3) mg/dL Est Cr Clr Drug Dosing mL/min Estimated GFR (MDRD) ml/min Glucose (74-106) mg/dL POC Glucose 189 H (60-110) mg/dL Calcium (8.5-10.1) mg/dL Total Bilirubin (0.2-1.0) mg/dL AST (15-37) IU/L ALT (14-63) IU/L Alkaline Phosphatase (46-116) U/L Troponin I (0.000-0.056) ng/mL B-Natriuretic Peptide (<100) PG/ML Total Protein (6.4-8.2) g/dL Albumin (3.4-5.0) g/dL Globulin (2.6-4.0) g/dL Albumin/Globulin Ratio (0.9-1.6) Urine Color Urine Appearance Urine pH (5.0-8.0) Ur Specific [place] (1.001-1.035) Urine Protein (NEGATIVE) mg/dL Urine Glucose (UA) (NEGATIVE) mg/dL Urine Ketones (NEGATIVE) mg/dL Urine Occult Blood (NEGATIVE) Urine Nitrite (NEGATIVE) Urine Bilirubin (NEGATIVE) Urine Ictotest Urine Urobilinogen (<2.0) EU/dL Ur Leukocyte Esterase (NEGATIVE) Urine RBC (0-2/HPF) Urine WBC (0-5/HPF) Ur Epithelial Cells (NONE-FEW) Urine Bacteria (NEGATIVE) Urine Mucus (NONE-MOD) Result Diagrams: 03/31/19 04:43 03/31/19 04:43 Shin Results Last 24 hrs: Microbiology 03/30/19 18:15 Influenza Type A Antigen Screen - Final Nasopharyngeal Swab Positive Influenza A Ag Influenza Type B Antigen Screen - Final NEGATIVE INFLUENZA B VIRUS AG REFERENCE RANGE: NEGATIVE 03/30/19 15:51 Anaerobic Blood Culture - Final Blood - Venous Sepsis Event Note - Focused Exam Vital Signs: Vital Signs Temp Temp Temp Pulse Pulse Resp BP 03/31/19 12:15 36.8 C 86 18 03/31/19 09:51 03/31/19 09:50 97 109/60 03/31/19 09:44 109/60 03/31/19 07:30 36.2 C 93 18 03/31/19 05:00 37.2 C 03/31/19 04:32 38.1 C 101 H 16 03/31/19 03:59 38.1 C BP Pulse Ox 03/31/19 12:15 115/61 93 L 03/31/19 09:51 91 L 03/31/19 09:50 03/31/19 09:44 03/31/19 07:30 123/67 03/31/19 05:00 03/31/19 04:32 122/67 93 L 03/31/19 03:59 Date Exam was Performed: 03/31/19 Time Exam was Performed: 12:37 Orders Last 24hrs: Active Orders 24 hr Category Date Time Status Admission Status [Patient Status] [ADT] Stat ADT 03/30/19 16:50 Active Antiembolic Devices [RC] PER UNIT ROUTINE Care 03/30/19 17:14 Active Blood Glucose Check, Bedside [RC] TIDMEALS Care 03/30/19 17:14 Active Cardiac Monitoring [RC] Q8H Care 03/30/19 17:14 Active Daily Weight [Height and Weight] [RC] DAILY Care 03/30/19 18:21 Active Intake and Output Strict [RC] Q12H Care 03/30/19 17:16 Active Telemetry Monitoring [Cardiac Monitoring] [RC] . Care 03/30/19 16:40 Active DIRECTED Vital Signs [RC] PER UNIT ROUTINE Care 03/30/19 17:14 Active Heart Healthy Diet [DIET] Diet 03/30/19 Dinner Active BASIC METABOLIC PANEL,BMP [CHEM] AM Lab 04/01/19 05:11 Ordered CBC WITH AUTO DIFF [HEME] AM Lab 04/01/19 05:11 Ordered CULTURE BLOOD [BC] Stat Lab 03/30/19 15:07 Received CULTURE BLOOD [BC] Stat Lab 03/30/19 15:51 Results Acetaminophen [Tylenol] Med 03/30/19 17:14 Active 650 mg PO Q4H PRN Benzocaine/Cetylpyrd/Menthol [Cepacol Sore Throat] Med 03/31/19 11:15 Active 1 lozenge MUCMEM Q2HR PRN Clopidogrel [Plavix] Med 03/31/19 09:00 Active 75 mg PO DAILY DULoxetine [Cymbalta] Med 03/31/19 09:00 Active 30 mg PO DAILY Insulin Aspart [NovoLOG] Med 03/31/19 07:30 Active See Protocol SUBCUT TIDAC Insulin Glarg,Human.Rec.Analog [LantUS Solostar] Med 03/30/19 21:00 Active 30 units SUBCUT BEDTIME Isosorbide Mononitrate [Imdur] Med 03/31/19 09:00 Active 30 mg PO DAILY Levofloxacin/Dextrose 5%-Water [Levaquin in D5W 750 MG/ Med 03/30/19 17:15 Active 150 ML] 750 mg Premix Bag 1 bag IV Q24H Metoprolol Tartrate [Lopressor] Med 03/30/19 21:00 Active 25 mg PO BID Ondansetron [Zofran] Med 03/30/19 17:14 Active 4 mg IVPUSH Q4H PRN Oseltamivir [Tamiflu] Med 03/31/19 21:00 Active 75 mg PO BID Topiramate [Topamax] Med 03/31/19 09:00 Active 25 mg PO DAILY atorvaSTATin [Lipitor] Med 03/31/19 09:00 Active 10 mg PO DAILY Blood Culture x2 Reflex Set [OM.PC] Stat Oth 03/30/19 15:27 Ordered Sequential Compression Device [OM.PC] Routine Oth 03/30/19 17:14 Ordered Resuscitation Status Routine Resus Stat 03/30/19 17:14 Ordered Medication Orders Acetaminophen (Tylenol) 650 mg PO Q4H PRN PRN Reason: Pain/Fever Last Admin: 03/31/19 09:45 Dose: 650 mg Admin: 03/31/19 03:59 Dose: 650 mg Atorvastatin Calcium (Lipitor) 10 mg PO DAILY ESTEPHANIA Last Admin: 03/31/19 09:49 Dose: 10 mg Benzocaine/Menthol (Cepacol Sore Throat) 1 lozenge MUCMEM Q2HR PRN PRN Reason: Sore Throat Last Admin: 03/31/19 12:15 Dose: 1 lozenge Clopidogrel Bisulfate (Plavix) 75 mg PO DAILY [facility] Last Admin: 03/31/19 09:45 Dose: 75 mg Duloxetine HCl (Cymbalta) 30 mg PO DAILY [facility] Last Admin: 03/31/19 09:45 Dose: 30 mg Levofloxacin/Dextrose 750 mg/ (Premix) 150 mls @ 100 mls/hr IV Q24H [facility] Last Admin: 03/30/19 18:17 Dose: 100 mls/hr Insulin Aspart (Novolog) 0 unit SUBCUT TIDAC [facility]; Protocol Last Admin: 03/31/19 12:25 Dose: 2 units Admin: 03/31/19 07:50 Dose: Not Given Insulin Glargine (Lantus Solostar) 30 units SUBCUT BEDTIME [facility] Last Admin: 03/30/19 23:53 Dose: Not Given Isosorbide Mononitrate (Imdur) 30 mg PO DAILY [facility] Last Admin: 03/31/19 09:44 Dose: 30 mg Metoprolol Tartrate (Lopressor) 25 mg PO BID [facility] Last Admin: 03/31/19 09:50 Dose: 25 mg Admin: 03/30/19 20:31 Dose: 25 mg Ondansetron HCl (Zofran) 4 mg IVPUSH Q4H PRN PRN Reason: Nausea/Vomiting Last Admin: 03/31/19 09:43 Dose: 4 mg Oseltamivir Phosphate (Tamiflu) 75 mg PO BID [facility] Stop: 04/04/19 21:01 Topiramate (Topamax) 25 mg PO DAILY [facility] Last Admin: 03/31/19 09:48 Dose: 25 mg - Free Text/Narrative Note: I have seen and evaluated the patient with the resident. I have discussed findings and treatment plan with the resident. I agree with the assessment and plan in the following note.
[2019-03-30] MEDS: Levofloxacin/Dextrose 5%-Water 750 MG in Premix Bag 1 BAG IV SCH (18:17)
[2019-03-30] MEDS ORDERED: Iopamidol 755 MG/ML 200 ML Multipack Bottle IVPUSH ONE (18:55)
--- NOTE | 2019-03-30 19:31 | CT ---
CT chest Technique: Multiple axial sections through the chest were obtained. Intravenous contrast was utilized. Study performed as a pulmonary angiogram protocol. Findings: Pulmonary arteries are moderately well opacified. No filling defects are seen to indicate pulmonary embolism. Aorta shows no aneurysm or dissection. Ascending aorta is mildly ectatic. Mediastinum and hilar region show no adenopathy. No pericardial fluid is seen. AICD causes some artifact. Perivascular markings are slightly hazy raising the possibility of mild pulmonary vascular congestion. Lungs otherwise are clear. No pleural effusions are seen. Bone window settings were reviewed which shows no acute osseous finding. Impression: 1. No findings of pulmonary embolism. 2. Artifact from AICD. 3. Hazy perivascular markings suggesting possible mild pulmonary vascular congestion. Diagnostic code #3 This report was dictated in [place] Standard Time
[2019-03-30] MEDS: Oseltamivir 75 MG Cap PO SCH (20:31)
[2019-03-30] MEDS: Metoprolol Tartrate 25 MG Tab PO SCH (20:31)
[2019-03-30] MEDS ORDERED: Insulin Glargine,Human Rec. Analog 100 Units/ML 3 ML Pen SUBCUT SCH (21:00)
[2019-03-31] MEDS: Acetaminophen 325 MG Tab PO PRN ×3 (03:59→16:56)
[2019-03-31 05:55] LABS: BLOOD UREA NITROGEN,BUN 12 mg/dL (7.0-18.0); CARBON DIOXIDE,CO2 29.2 mmol/L (21.0-32.0); CHLORIDE,CL 104 mmol/L (98-107); GLUCOSE RANDOM 75 mg/dL (74-106); POTASSIUM,K 3.6 mmol/L (3.5-5.1); SODIUM,NA 141 mmol/L (136-148)
[2019-03-31] MEDS ORDERED: 50% Dextrose in Water 50 ML Syringe IVPUSH ONE (07:16)
[2019-03-31] MEDS: Insulin Aspart 100 Units/ML 3 ML Pen SUBCUT SCH ×3 (07:50→16:41)
--- NOTE | 2019-03-31 08:50 | PCM.PN ---
- General Info Date of Service: 03/31/19 Subjective Update: Patient reports he is feeling better but still has chills. Max temp last night was 100.5F. Weaned down to 1 L of oxygen. No longer having abdominal pain and doesn't feel fluid overloaded. - Review of Systems General: Reports: Fever, Chills HEENT: Reports: No Symptoms, Sore Throat Pulmonary: Denies: Shortness of Breath, Cough Cardiovascular: Reports: No Symptoms Gastrointestinal: Reports: No Symptoms Genitourinary: Reports: No Symptoms Musculoskeletal: Reports: No Symptoms Skin: Reports: No Symptoms Neurological: Reports: No Symptoms Psychiatric: Reports: No Symptoms - Patient Data Vitals - Most Recent: Last Vital Signs Temp 97.2 F 03/31/19 07:30 Pulse 93 03/31/19 07:30 Resp 18 03/31/19 07:30 BP 123/67 03/31/19 07:30 Pulse Ox 93 L 03/31/19 04:32 Weight - Most Recent: 89.6 kg I&O - Last 24 Hours: Intake & Output 03/30/19 03/31/19 03/31/19 22:59 06:59 14:59 Intake Total 1389 Output Total 725 Balance 664 Lab Results Last 24 Hours: Laboratory Results - last 24 hr 03/30/19 03/30/19 03/30/19 Range/Units 15:07 15:07 15:07 WBC 6.06 (4.0-11.0) K/uL RBC 5.11 (4.50-5.90) M/uL Hgb 16.6 (13.0-17.0) g/dL Hct 45.8 (38.0-50.0) % MCV 89.6 (80.0-98.0) fL MCH 32.5 H (27.0-32.0) pg MCHC 36.2 (31.0-37.0) g/dL RDW Std Deviation 41.1 (28.0-62.0) fl RDW Coeff of Charles 13 (11.0-15.0) % Plt Count 181 (150-400) K/uL MPV 10.00 (7.40-12.00) fL Neut % (Auto) 74.0 (48.0-80.0) % Lymph % (Auto) 12.9 L (16.0-40.0) % Dewey % (Auto) 12.9 (0.0-15.0) % Eos % (Auto) 0.0 (0.0-7.0) % Baso % (Auto) 0.2 (0.0-1.5) % Neut # (Auto) 4.5 (1.4-5.7) K/uL Lymph # (Auto) 0.8 (0.6-2.4) K/uL Dewey # (Auto) 0.8 (0.0-0.8) K/uL Eos # (Auto) 0.0 (0.0-0.7) K/uL Baso # (Auto) 0.0 (0.0-0.1) K/uL Nucleated RBC % 0.0 /100WBC Nucleated RBCs # 0 K/uL D-Dimer, Quantitative (0.0-0.50) mg/L FEU ABG pH (7.35-7.45) ABG pCO2 (35-45) mmHG ABG pO2 (75-100) mmHG ABG HCO3 (22-26) mEq/L ABG Total CO2 ABG Base Excess (-2.0-2.0) Lactate (0.20-2.00) mmol/L Sodium 139 (136-148) mmol/L Potassium 3.4 L (3.5-5.1) mmol/L Chloride 99 (98-107) mmol/L Carbon Dioxide 27.0 (21.0-32.0) mmol/L BUN 14 (7.0-18.0) mg/dL Creatinine 1.2 (0.8-1.3) mg/dL Est Cr Clr Drug Dosing 81.82 mL/min Estimated GFR (MDRD) > 60.0 ml/min Glucose 109 H (74-106) mg/dL POC Glucose (60-110) mg/dL Calcium 9.1 (8.5-10.1) mg/dL Total Bilirubin 1.2 H (0.2-1.0) mg/dL AST 29 (15-37) IU/L ALT 24 (14-63) IU/L Alkaline Phosphatase 84 (46-116) U/L Troponin I < 0.050 (0.000-0.056) ng/mL B-Natriuretic Peptide 6 (<100) PG/ML Total Protein 8.2 (6.4-8.2) g/dL Albumin 4.2 (3.4-5.0) g/dL Globulin 4.0 (2.6-4.0) g/dL Albumin/Globulin Ratio 1.0 (0.9-1.6) Urine Color Urine Appearance Urine pH (5.0-8.0) Ur Specific Webster (1.001-1.035) Urine Protein (NEGATIVE) mg/dL Urine Glucose (UA) (NEGATIVE) mg/dL Urine Ketones (NEGATIVE) mg/dL Urine Occult Blood (NEGATIVE) Urine Nitrite (NEGATIVE) Urine Bilirubin (NEGATIVE) Urine Ictotest Urine Urobilinogen (<2.0) EU/dL Ur Leukocyte Esterase (NEGATIVE) Urine RBC (0-2/HPF) Urine WBC (0-5/HPF) Ur Epithelial Cells (NONE-FEW) Urine Bacteria (NEGATIVE) Urine Mucus (NONE-MOD) 03/30/19 03/30/19 03/30/19 Range/Units 15:07 15:17 16:31 WBC (4.0-11.0) K/uL RBC (4.50-5.90) M/uL Hgb (13.0-17.0) g/dL Hct (38.0-50.0) % MCV (80.0-98.0) fL MCH (27.0-32.0) pg MCHC (31.0-37.0) g/dL RDW Std Deviation (28.0-62.0) fl RDW Coeff of Charles (11.0-15.0) % Plt Count (150-400) K/uL MPV (7.40-12.00) fL Neut % (Auto) (48.0-80.0) % Lymph % (Auto) (16.0-40.0) % Dewey % (Auto) (0.0-15.0) % Eos % (Auto) (0.0-7.0) % Baso % (Auto) (0.0-1.5) % Neut # (Auto) (1.4-5.7) K/uL Lymph # (Auto) (0.6-2.4) K/uL Dewey # (Auto) (0.0-0.8) K/uL Eos # (Auto) (0.0-0.7) K/uL Baso # (Auto) (0.0-0.1) K/uL Nucleated RBC % /100WBC Nucleated RBCs # K/uL D-Dimer, Quantitative 0.68 H (0.0-0.50) mg/L FEU ABG pH 7.446 (7.35-7.45) ABG pCO2 36 (35-45) mmHG ABG pO2 61 L (75-100) mmHG ABG HCO3 25 (22-26) mEq/L ABG Total CO2 21.8 ABG Base Excess 1.1 (-2.0-2.0) Lactate 1.7 (0.20-2.00) mmol/L Sodium (136-148) mmol/L Potassium (3.5-5.1) mmol/L Chloride (98-107) mmol/L Carbon Dioxide (21.0-32.0) mmol/L BUN (7.0-18.0) mg/dL Creatinine (0.8-1.3) mg/dL Est Cr Clr Drug Dosing mL/min Estimated GFR (MDRD) ml/min Glucose (74-106) mg/dL POC Glucose (60-110) mg/dL Calcium (8.5-10.1) mg/dL Total Bilirubin (0.2-1.0) mg/dL AST (15-37) IU/L ALT (14-63) IU/L Alkaline Phosphatase (46-116) U/L Troponin I (0.000-0.056) ng/mL B-Natriuretic Peptide (<100) PG/ML Total Protein (6.4-8.2) g/dL Albumin (3.4-5.0) g/dL Globulin (2.6-4.0) g/dL Albumin/Globulin Ratio (0.9-1.6) Urine Color Urine Appearance Urine pH (5.0-8.0) Ur Specific Webster (1.001-1.035) Urine Protein (NEGATIVE) mg/dL Urine Glucose (UA) (NEGATIVE) mg/dL Urine Ketones (NEGATIVE) mg/dL Urine Occult Blood (NEGATIVE) Urine Nitrite (NEGATIVE) Urine Bilirubin (NEGATIVE) Urine Ictotest Urine Urobilinogen (<2.0) EU/dL Ur Leukocyte Esterase (NEGATIVE) Urine RBC (0-2/HPF) Urine WBC (0-5/HPF) Ur Epithelial Cells (NONE-FEW) Urine Bacteria (NEGATIVE) Urine Mucus (NONE-MOD) 03/30/19 03/30/19 03/30/19 Range/Units 22:20 22:23 23:16 WBC (4.0-11.0) K/uL RBC (4.50-5.90) M/uL Hgb (13.0-17.0) g/dL Hct (38.0-50.0) % MCV (80.0-98.0) fL MCH (27.0-32.0) pg MCHC (31.0-37.0) g/dL RDW Std Deviation (28.0-62.0) fl RDW Coeff of Charles (11.0-15.0) % Plt Count (150-400) K/uL MPV (7.40-12.00) fL Neut % (Auto) (48.0-80.0) % Lymph % (Auto) (16.0-40.0) % Dewey % (Auto) (0.0-15.0) % Eos % (Auto) (0.0-7.0) % Baso % (Auto) (0.0-1.5) % Neut # (Auto) (1.4-5.7) K/uL Lymph # (Auto) (0.6-2.4) K/uL Dewey # (Auto) (0.0-0.8) K/uL Eos # (Auto) (0.0-0.7) K/uL Baso # (Auto) (0.0-0.1) K/uL Nucleated RBC % /100WBC Nucleated RBCs # K/uL D-Dimer, Quantitative (0.0-0.50) mg/L FEU ABG pH (7.35-7.45) ABG pCO2 (35-45) mmHG ABG pO2 (75-100) mmHG ABG HCO3 (22-26) mEq/L ABG Total CO2 ABG Base Excess (-2.0-2.0) Lactate (0.20-2.00) mmol/L Sodium (136-148) mmol/L Potassium (3.5-5.1) mmol/L Chloride (98-107) mmol/L Carbon Dioxide (21.0-32.0) mmol/L BUN (7.0-18.0) mg/dL Creatinine (0.8-1.3) mg/dL Est Cr Clr Drug Dosing mL/min Estimated GFR (MDRD) ml/min Glucose (74-106) mg/dL POC Glucose 65 67 (60-110) mg/dL Calcium (8.5-10.1) mg/dL Total Bilirubin (0.2-1.0) mg/dL AST (15-37) IU/L ALT (14-63) IU/L Alkaline Phosphatase (46-116) U/L Troponin I (0.000-0.056) ng/mL B-Natriuretic Peptide (<100) PG/ML Total Protein (6.4-8.2) g/dL Albumin (3.4-5.0) g/dL Globulin (2.6-4.0) g/dL Albumin/Globulin Ratio (0.9-1.6) Urine Color DARK YELLOW Urine Appearance CLEAR Urine pH 5.5 (5.0-8.0) Ur Specific Webster >= 1.030 (1.001-1.035) Urine Protein 30 H (NEGATIVE) mg/dL Urine Glucose (UA) NEGATIVE (NEGATIVE) mg/dL Urine Ketones 15 H (NEGATIVE) mg/dL Urine Occult Blood NEGATIVE (NEGATIVE) Urine Nitrite NEGATIVE (NEGATIVE) Urine Bilirubin SMALL H (NEGATIVE) Urine Ictotest NEGATIVE Urine Urobilinogen 0.2 (<2.0) EU/dL Ur Leukocyte Esterase NEGATIVE (NEGATIVE) Urine RBC NONE SEEN (0-2/HPF) Urine WBC 0-1 (0-5/HPF) Ur Epithelial Cells RARE (NONE-FEW) Urine Bacteria 1+ H (NEGATIVE) Urine Mucus LIGHT (NONE-MOD) 03/30/19 03/31/19 03/31/19 Range/Units 23:45 04:43 04:43 WBC 4.28 (4.0-11.0) K/uL RBC 4.32 L (4.50-5.90) M/uL Hgb 13.7 (13.0-17.0) g/dL Hct 39.1 (38.0-50.0) % MCV 90.5 (80.0-98.0) fL MCH 31.7 (27.0-32.0) pg MCHC 35.0 (31.0-37.0) g/dL RDW Std Deviation 41.5 (28.0-62.0) fl RDW Coeff of Charles 13 (11.0-15.0) % Plt Count 163 (150-400) K/uL MPV 10.00 (7.40-12.00) fL Neut % (Auto) 67.5 (48.0-80.0) % Lymph % (Auto) 19.9 (16.0-40.0) % Dewey % (Auto) 12.4 (0.0-15.0) % Eos % (Auto) 0.0 (0.0-7.0) % Baso % (Auto) 0.2 (0.0-1.5) % Neut # (Auto) 2.9 (1.4-5.7) K/uL Lymph # (Auto) 0.9 (0.6-2.4) K/uL Dewey # (Auto) 0.5 (0.0-0.8) K/uL Eos # (Auto) 0.0 (0.0-0.7) K/uL Baso # (Auto) 0.0 (0.0-0.1) K/uL Nucleated RBC % 0.0 /100WBC Nucleated RBCs # 0 K/uL D-Dimer, Quantitative (0.0-0.50) mg/L FEU ABG pH (7.35-7.45) ABG pCO2 (35-45) mmHG ABG pO2 (75-100) mmHG ABG HCO3 (22-26) mEq/L ABG Total CO2 ABG Base Excess (-2.0-2.0) Lactate (0.20-2.00) mmol/L Sodium 141 (136-148) mmol/L Potassium 3.6 (3.5-5.1) mmol/L Chloride 104 (98-107) mmol/L Carbon Dioxide 29.2 (21.0-32.0) mmol/L BUN 12 (7.0-18.0) mg/dL Creatinine 1.0 (0.8-1.3) mg/dL Est Cr Clr Drug Dosing 98.18 mL/min Estimated GFR (MDRD) > 60.0 ml/min Glucose 75 (74-106) mg/dL POC Glucose 76 (60-110) mg/dL Calcium 7.9 L (8.5-10.1) mg/dL Total Bilirubin 0.8 (0.2-1.0) mg/dL AST 27 (15-37) IU/L ALT 21 (14-63) IU/L Alkaline Phosphatase 58 (46-116) U/L Troponin I (0.000-0.056) ng/mL B-Natriuretic Peptide (<100) PG/ML Total Protein 6.3 L (6.4-8.2) g/dL Albumin 3.0 L (3.4-5.0) g/dL Globulin 3.3 (2.6-4.0) g/dL Albumin/Globulin Ratio 0.9 (0.9-1.6) Urine Color Urine Appearance Urine pH (5.0-8.0) Ur Specific Webster (1.001-1.035) Urine Protein (NEGATIVE) mg/dL Urine Glucose (UA) (NEGATIVE) mg/dL Urine Ketones (NEGATIVE) mg/dL Urine Occult Blood (NEGATIVE) Urine Nitrite (NEGATIVE) Urine Bilirubin (NEGATIVE) Urine Ictotest Urine Urobilinogen (<2.0) EU/dL Ur Leukocyte Esterase (NEGATIVE) Urine RBC (0-2/HPF) Urine WBC (0-5/HPF) Ur Epithelial Cells (NONE-FEW) Urine Bacteria (NEGATIVE) Urine Mucus (NONE-MOD) 03/31/19 Range/Units 06:09 WBC (4.0-11.0) K/uL RBC (4.50-5.90) M/uL Hgb (13.0-17.0) g/dL Hct (38.0-50.0) % MCV (80.0-98.0) fL MCH (27.0-32.0) pg MCHC (31.0-37.0) g/dL RDW Std Deviation (28.0-62.0) fl RDW Coeff of Charles (11.0-15.0) % Plt Count (150-400) K/uL MPV (7.40-12.00) fL Neut % (Auto) (48.0-80.0) % Lymph % (Auto) (16.0-40.0) % Dewey % (Auto) (0.0-15.0) % Eos % (Auto) (0.0-7.0) % Baso % (Auto) (0.0-1.5) % Neut # (Auto) (1.4-5.7) K/uL Lymph # (Auto) (0.6-2.4) K/uL Dewey # (Auto) (0.0-0.8) K/uL Eos # (Auto) (0.0-0.7) K/uL Baso # (Auto) (0.0-0.1) K/uL Nucleated RBC % /100WBC Nucleated RBCs # K/uL D-Dimer, Quantitative (0.0-0.50) mg/L FEU ABG pH (7.35-7.45) ABG pCO2 (35-45) mmHG ABG pO2 (75-100) mmHG ABG HCO3 (22-26) mEq/L ABG Total CO2 ABG Base Excess (-2.0-2.0) Lactate (0.20-2.00) mmol/L Sodium (136-148) mmol/L Potassium (3.5-5.1) mmol/L Chloride (98-107) mmol/L Carbon Dioxide (21.0-32.0) mmol/L BUN (7.0-18.0) mg/dL Creatinine (0.8-1.3) mg/dL Est Cr Clr Drug Dosing mL/min Estimated GFR (MDRD) ml/min Glucose (74-106) mg/dL POC Glucose 50 L (60-110) mg/dL Calcium (8.5-10.1) mg/dL Total Bilirubin (0.2-1.0) mg/dL AST (15-37) IU/L ALT (14-63) IU/L Alkaline Phosphatase (46-116) U/L Troponin I (0.000-0.056) ng/mL B-Natriuretic Peptide (<100) PG/ML Total Protein (6.4-8.2) g/dL Albumin (3.4-5.0) g/dL Globulin (2.6-4.0) g/dL Albumin/Globulin Ratio (0.9-1.6) Urine Color Urine Appearance Urine pH (5.0-8.0) Ur Specific Webster (1.001-1.035) Urine Protein (NEGATIVE) mg/dL Urine Glucose (UA) (NEGATIVE) mg/dL Urine Ketones (NEGATIVE) mg/dL Urine Occult Blood (NEGATIVE) Urine Nitrite (NEGATIVE) Urine Bilirubin (NEGATIVE) Urine Ictotest Urine Urobilinogen (<2.0) EU/dL Ur Leukocyte Esterase (NEGATIVE) Urine RBC (0-2/HPF) Urine WBC (0-5/HPF) Ur Epithelial Cells (NONE-FEW) Urine Bacteria (NEGATIVE) Urine Mucus (NONE-MOD) Shin Results Last 24 Hours: Microbiology 03/30/19 18:15 Influenza Type A Antigen Screen - Final Nasopharyngeal Swab Positive Influenza A Ag Influenza Type B Antigen Screen - Final NEGATIVE INFLUENZA B VIRUS AG REFERENCE RANGE: NEGATIVE 03/30/19 15:51 Anaerobic Blood Culture - Final Blood - Venous Med Orders - Current: Current Medications Acetaminophen (Tylenol) 650 mg PO Q4H PRN PRN Reason: Pain/Fever Last Admin: 03/31/19 03:59 Dose: 650 mg Atorvastatin Calcium (Lipitor) 10 mg PO DAILY [facility] Clopidogrel Bisulfate (Plavix) 75 mg PO DAILY [facility] Duloxetine HCl (Cymbalta) 30 mg PO DAILY [facility] Levofloxacin/Dextrose 750 mg/ (Premix) 150 mls @ 100 mls/hr IV Q24H [facility] Last Admin: 03/30/19 18:17 Dose: 100 mls/hr Insulin Aspart (Novolog) 0 unit SUBCUT TIDAC [facility]; Protocol Last Admin: 03/31/19 07:50 Dose: Not Given Insulin Glargine (Lantus Solostar) 30 units SUBCUT BEDTIME [facility] Last Admin: 03/30/19 23:53 Dose: Not Given Isosorbide Mononitrate (Imdur) 30 mg PO DAILY [facility] Metoprolol Tartrate (Lopressor) 25 mg PO BID [facility] Last Admin: 03/30/19 20:31 Dose: 25 mg Ondansetron HCl (Zofran) 4 mg IVPUSH Q4H PRN PRN Reason: Nausea/Vomiting Oseltamivir Phosphate (Tamiflu) 75 mg PO DAILY [facility] Last Admin: 03/30/19 20:31 Dose: 75 mg Topiramate (Topamax) 25 mg PO DAILY [facility] Discontinued Medications Acetaminophen (Tylenol Extra Strength) 1,000 mg PO ONETIME ONE Stop: 03/30/19 16:18 Last Admin: 03/30/19 16:25 Dose: 1,000 mg Dextrose/Water (Dextrose 50% In Water) 50 ml IVPUSH ONETIME ONE Stop: 03/31/19 07:17 Last Admin: 03/31/19 07:51 Dose: 25 ml Sodium Chloride (Normal Saline) 2,000 mls @ 999 mls/hr IV .Bolus ONE Stop: 03/30/19 16:56 Last Admin: 03/30/19 15:20 Dose: 999 mls/hr Iopamidol (Isovue Multipack-370 (76%)) 50 ml IVPUSH ONETIME ONE Stop: 03/30/19 18:56 Last Admin: 03/30/19 18:55 Dose: 50 ml Ondansetron HCl (Zofran) 8 mg IVPUSH ONETIME ONE Stop: 03/30/19 14:58 Last Admin: 03/30/19 15:21 Dose: 8 mg - Exam Quality Assessment: Supplemental Oxygen General: Alert, Oriented, Cooperative Neck: Supple Lungs: Normal Respiratory Effort, Crackles, Other (improved) GI/Abdominal Exam: Normal Bowel Sounds, Soft, Non-Tender, No Distention Extremities: No Pedal Edema Skin: Warm, Dry, Intact Neurological: No New Focal Deficit Psy/Mental Status: Alert, Normal Affect, Normal Mood Sepsis Event Note - Evaluation Sepsis Screening Result: No Definite Risk - Focused Exam Vital Signs: Vital Signs Temp Temp Temp Pulse Resp BP Pulse Ox 03/31/19 07:30 97.2 F 93 18 123/67 03/31/19 05:00 99.0 F 03/31/19 04:32 100.5 F 101 H 16 122/67 93 L 03/31/19 03:59 100.5 F 03/31/19 00:00 99 F 92 16 125/70 92 L Date Exam was Performed: 03/31/19 Time Exam was Performed: 11:17 - Problem List Review Problem List Initiated/Reviewed/Updated: Yes - My Orders Last 24 Hours: My Active Orders 03/30/19 17:14 Antiembolic Devices [RC] PER UNIT ROUTINE Blood Glucose Check, Bedside [RC] TIDMEALS Cardiac Monitoring [RC] Q8H Vital Signs [RC] PER UNIT ROUTINE Acetaminophen [Tylenol] 650 mg PO Q4H PRN Ondansetron [Zofran] 4 mg IVPUSH Q4H PRN Sequential Compression Device [OM.PC] Routine Resuscitation Status Routine 03/30/19 17:15 Levofloxacin/Dextrose 5%-Water [Levaquin in D5W 750 MG/150 ML] 750 mg Premix Bag 1 bag IV Q24H 03/30/19 17:16 Intake and Output Strict [RC] Q12H 03/30/19 18:21 Daily Weight [Height and Weight] [RC] DAILY 03/30/19 19:00 Oseltamivir [Tamiflu] 75 mg PO DAILY 03/30/19 21:00 Insulin Glarg,Human.Rec.Analog [LantUS Solostar] 30 units SUBCUT BEDTIME Metoprolol Tartrate [Lopressor] 25 mg PO BID 03/30/19 Dinner Heart Healthy Diet [DIET] 03/31/19 07:30 Insulin Aspart [NovoLOG] See Protocol SUBCUT TIDAC 03/31/19 09:00 Clopidogrel [Plavix] 75 mg PO DAILY DULoxetine [Cymbalta] 30 mg PO DAILY Isosorbide Mononitrate [Imdur] 30 mg PO DAILY Topiramate [Topamax] 25 mg PO DAILY atorvaSTATin [Lipitor] 10 mg PO DAILY - Plan Plan:: 1. Fever/tachycardia/hypoxia secondary to influenza A-improving- CTA did not show PT but did show hazy perivascular markings consistent with pulmonary vascular congestion. On Tamiflu and Levaquin. Monitor on telemetry. 2. RUQ pain with nausea/vomiting/diarrhea- improved- no longer having abdominal pain or diarrhea. Still has nausea, Zofran helps. Bilirubin back wnl and no elevated in AST or ALT. 3. DMI- accuchecks, home Lantus, sliding scale 4. CAD/HTN/CHF- continue home meds, monitor on telemetry, monitor for signs of fluid overload. Strict I/Os and daily weights.
[2019-03-31] MEDS: Ondansetron 4 MG/2 ML SDV IVPUSH PRN ×3 (09:43→23:46)
[2019-03-31] MEDS: Isosorbide Mononitrate 30 MG Tab.ER PO SCH (09:44)
[2019-03-31] MEDS: DULoxetine 30 MG Cap PO SCH (09:45)
[2019-03-31] MEDS: Clopidogrel 75 MG Tab PO SCH (09:45)
[2019-03-31] MEDS: Topiramate 50 MG Tab PO SCH (09:48)
[2019-03-31] MEDS: Oseltamivir 75 MG Cap PO SCH ×2 (09:48→20:42)
[2019-03-31] MEDS: atorvaSTATin 10 MG Tab PO SCH (09:49)
[2019-03-31] MEDS: Metoprolol Tartrate 25 MG Tab PO SCH ×2 (09:50→20:50)
[2019-03-31] MEDS: Benzocaine/Cetylpyridinium/Menthol Lozenge MUCMEM PRN ×4 (12:15→23:50)
[2019-03-31] MEDS: Heparin Sodium 5,000 Units/ML Vial SUBCUT SCH ×2 (13:39→20:38)
[2019-03-31] MEDS: Levofloxacin/Dextrose 5%-Water 750 MG in Premix Bag 1 BAG IV SCH (16:40)
[2019-03-31] MEDS ORDERED: Insulin Glargine,Human Rec. Analog 100 Units/ML 3 ML Pen SUBCUT SCH (21:00)
[2019-04-01] MEDS: Benzocaine/Cetylpyridinium/Menthol Lozenge MUCMEM PRN ×4 (05:08→17:08)
[2019-04-01] MEDS: Heparin Sodium 5,000 Units/ML Vial SUBCUT SCH ×3 (05:08→20:43)
[2019-04-01 06:39] LABS: BLOOD UREA NITROGEN,BUN 12 mg/dL (7.0-18.0); CARBON DIOXIDE,CO2 29.8 mmol/L (21.0-32.0); CHLORIDE,CL 104 mmol/L (98-107); GLUCOSE RANDOM 235 mg/dL (74-106); SODIUM,NA 143 mmol/L (136-148)
--- NOTE | 2019-04-01 08:19 | PCM.PN ---
- General Info Date of Service: 04/01/19 Subjective Update: Patient still doesn't feel well but better compared to admission. Was off oxygen all day yesterday but had some overnight. This morning back off oxygen, took shower and felt better. Still not eating and drinking as much as normal. - Review of Systems General: Reports: Fatigue. Denies: Fever HEENT: Reports: No Symptoms Pulmonary: Reports: Shortness of Breath, Cough Cardiovascular: Reports: No Symptoms Gastrointestinal: Reports: No Symptoms Genitourinary: Reports: No Symptoms Musculoskeletal: Reports: No Symptoms Skin: Reports: No Symptoms Neurological: Reports: No Symptoms Psychiatric: Reports: No Symptoms - Patient Data Vitals - Most Recent: Last Vital Signs Temp 98.7 F 04/01/19 07:40 Pulse 91 04/01/19 07:40 Resp 16 04/01/19 07:40 BP 136/68 04/01/19 07:40 Pulse Ox 95 04/01/19 07:40 Weight - Most Recent: 87.453 kg I&O - Last 24 Hours: Intake & Output 03/31/19 04/01/19 04/01/19 22:59 06:59 14:59 Intake Total 590 400 Output Total 350 900 Balance 240 -500 Lab Results Last 24 Hours: Laboratory Results - last 24 hr 03/31/19 03/31/19 03/31/19 Range/Units 07:50 09:17 12:17 WBC (4.0-11.0) K/uL RBC (4.50-5.90) M/uL Hgb (13.0-17.0) g/dL Hct (38.0-50.0) % MCV (80.0-98.0) fL MCH (27.0-32.0) pg MCHC (31.0-37.0) g/dL RDW Std Deviation (28.0-62.0) fl RDW Coeff of Charles (11.0-15.0) % Plt Count (150-400) K/uL MPV (7.40-12.00) fL Neut % (Auto) (48.0-80.0) % Lymph % (Auto) (16.0-40.0) % Bent % (Auto) (0.0-15.0) % Eos % (Auto) (0.0-7.0) % Baso % (Auto) (0.0-1.5) % Neut # (Auto) (1.4-5.7) K/uL Lymph # (Auto) (0.6-2.4) K/uL Bent # (Auto) (0.0-0.8) K/uL Eos # (Auto) (0.0-0.7) K/uL Baso # (Auto) (0.0-0.1) K/uL Nucleated RBC % /100WBC Nucleated RBCs # K/uL Sodium (136-148) mmol/L Potassium (3.5-5.1) mmol/L Chloride (98-107) mmol/L Carbon Dioxide (21.0-32.0) mmol/L BUN (7.0-18.0) mg/dL Creatinine (0.8-1.3) mg/dL Est Cr Clr Drug Dosing mL/min Estimated GFR (MDRD) ml/min Glucose (74-106) mg/dL POC Glucose 55 L 135 H 189 H (60-110) mg/dL Calcium (8.5-10.1) mg/dL 03/31/19 03/31/19 04/01/19 Range/Units 16:28 20:46 06:06 WBC 3.89 L (4.0-11.0) K/uL RBC 4.42 L (4.50-5.90) M/uL Hgb 13.9 (13.0-17.0) g/dL Hct 40.1 (38.0-50.0) % MCV 90.7 (80.0-98.0) fL MCH 31.4 (27.0-32.0) pg MCHC 34.7 (31.0-37.0) g/dL RDW Std Deviation 42.2 (28.0-62.0) fl RDW Coeff of Charles 13 (11.0-15.0) % Plt Count 147 L (150-400) K/uL MPV 9.90 (7.40-12.00) fL Neut % (Auto) 64.2 (48.0-80.0) % Lymph % (Auto) 26.7 (16.0-40.0) % Bent % (Auto) 8.5 (0.0-15.0) % Eos % (Auto) 0.3 (0.0-7.0) % Baso % (Auto) 0.3 (0.0-1.5) % Neut # (Auto) 2.5 (1.4-5.7) K/uL Lymph # (Auto) 1.0 (0.6-2.4) K/uL Bent # (Auto) 0.3 (0.0-0.8) K/uL Eos # (Auto) 0.0 (0.0-0.7) K/uL Baso # (Auto) 0.0 (0.0-0.1) K/uL Nucleated RBC % 0.0 /100WBC Nucleated RBCs # 0 K/uL Sodium (136-148) mmol/L Potassium (3.5-5.1) mmol/L Chloride (98-107) mmol/L Carbon Dioxide (21.0-32.0) mmol/L BUN (7.0-18.0) mg/dL Creatinine (0.8-1.3) mg/dL Est Cr Clr Drug Dosing mL/min Estimated GFR (MDRD) ml/min Glucose (74-106) mg/dL POC Glucose 180 H 229 H (60-110) mg/dL Calcium (8.5-10.1) mg/dL 04/01/19 Range/Units 06:06 WBC (4.0-11.0) K/uL RBC (4.50-5.90) M/uL Hgb (13.0-17.0) g/dL Hct (38.0-50.0) % MCV (80.0-98.0) fL MCH (27.0-32.0) pg MCHC (31.0-37.0) g/dL RDW Std Deviation (28.0-62.0) fl RDW Coeff of Charles (11.0-15.0) % Plt Count (150-400) K/uL MPV (7.40-12.00) fL Neut % (Auto) (48.0-80.0) % Lymph % (Auto) (16.0-40.0) % Bent % (Auto) (0.0-15.0) % Eos % (Auto) (0.0-7.0) % Baso % (Auto) (0.0-1.5) % Neut # (Auto) (1.4-5.7) K/uL Lymph # (Auto) (0.6-2.4) K/uL Bent # (Auto) (0.0-0.8) K/uL Eos # (Auto) (0.0-0.7) K/uL Baso # (Auto) (0.0-0.1) K/uL Nucleated RBC % /100WBC Nucleated RBCs # K/uL Sodium 143 (136-148) mmol/L Potassium 4.0 (3.5-5.1) mmol/L Chloride 104 (98-107) mmol/L Carbon Dioxide 29.8 (21.0-32.0) mmol/L BUN 12 (7.0-18.0) mg/dL Creatinine 1.0 (0.8-1.3) mg/dL Est Cr Clr Drug Dosing 98.18 mL/min Estimated GFR (MDRD) > 60.0 ml/min Glucose 235 H (74-106) mg/dL POC Glucose (60-110) mg/dL Calcium 7.9 L (8.5-10.1) mg/dL Shin Results Last 24 Hours: Microbiology 03/30/19 15:51 Aerobic Blood Culture - Preliminary Blood - Venous NO GROWTH AFTER 1 DAY Anaerobic Blood Culture - Final 03/30/19 15:07 Aerobic Blood Culture - Preliminary Blood NO GROWTH AFTER 1 DAY Anaerobic Blood Culture - Preliminary NO GROWTH AFTER 1 DAY Med Orders - Current: Current Medications Acetaminophen (Tylenol) 650 mg PO Q4H PRN PRN Reason: Pain/Fever Last Admin: 03/31/19 16:56 Dose: 650 mg Atorvastatin Calcium (Lipitor) 10 mg PO DAILY [facility] Last Admin: 03/31/19 09:49 Dose: 10 mg Benzocaine/Menthol (Cepacol Sore Throat) 1 lozenge MUCMEM Q2HR PRN PRN Reason: Sore Throat Last Admin: 04/01/19 05:08 Dose: 1 lozenge Clopidogrel Bisulfate (Plavix) 75 mg PO DAILY [facility] Last Admin: 03/31/19 09:45 Dose: 75 mg Duloxetine HCl (Cymbalta) 30 mg PO DAILY [facility] Last Admin: 03/31/19 09:45 Dose: 30 mg Guaifenesin (Mucinex) 600 mg PO BID [facility] Heparin Sodium (Porcine) (Heparin Sodium) 5,000 units SUBCUT Q8H [facility] Last Admin: 04/01/19 05:08 Dose: 5,000 units Levofloxacin/Dextrose 750 mg/ (Premix) 150 mls @ 100 mls/hr IV Q24H [facility] Last Admin: 03/31/19 16:40 Dose: 100 mls/hr Insulin Aspart (Novolog) 0 unit SUBCUT TIDAC [facility]; Protocol Last Admin: 03/31/19 16:41 Dose: 2 units Insulin Glargine (Lantus Solostar) 15 units SUBCUT BEDTIME [facility] Last Admin: 03/31/19 20:47 Dose: 15 units Isosorbide Mononitrate (Imdur) 30 mg PO DAILY [facility] Last Admin: 03/31/19 09:44 Dose: 30 mg Metoprolol Tartrate (Lopressor) 25 mg PO BID [facility] Last Admin: 03/31/19 20:50 Dose: 25 mg Ondansetron HCl (Zofran) 4 mg IVPUSH Q4H PRN PRN Reason: Nausea/Vomiting Last Admin: 03/31/19 23:46 Dose: 4 mg Oseltamivir Phosphate (Tamiflu) 75 mg PO BID [facility] Stop: 04/04/19 21:01 Last Admin: 03/31/19 20:42 Dose: 75 mg Topiramate (Topamax) 25 mg PO DAILY [facility] Last Admin: 03/31/19 09:48 Dose: 25 mg Discontinued Medications Acetaminophen (Tylenol Extra Strength) 1,000 mg PO ONETIME ONE Stop: 03/30/19 16:18 Last Admin: 03/30/19 16:25 Dose: 1,000 mg Dextrose/Water (Dextrose 50% In Water) 50 ml IVPUSH ONETIME ONE Stop: 03/31/19 07:17 Last Admin: 03/31/19 07:51 Dose: 25 ml Sodium Chloride (Normal Saline) 2,000 mls @ 999 mls/hr IV .Bolus ONE Stop: 03/30/19 16:56 Last Admin: 03/30/19 15:20 Dose: 999 mls/hr Insulin Glargine (Lantus Solostar) 30 units SUBCUT BEDTIME [facility] Last Admin: 03/30/19 23:53 Dose: Not Given Iopamidol (Isovue Multipack-370 (76%)) 50 ml IVPUSH ONETIME ONE Stop: 03/30/19 18:56 Last Admin: 03/30/19 18:55 Dose: 50 ml Ondansetron HCl (Zofran) 8 mg IVPUSH ONETIME ONE Stop: 03/30/19 14:58 Last Admin: 03/30/19 15:21 Dose: 8 mg Oseltamivir Phosphate (Tamiflu) 75 mg PO DAILY [facility] Last Admin: 03/31/19 09:48 Dose: 75 mg - Exam Quality Assessment: Supplemental Oxygen General: Alert, Oriented, Cooperative Neck: No: JVD Lungs: Normal Respiratory Effort, Rhonchi Cardiovascular: Regular Rate, Regular Rhythm GI/Abdominal Exam: Normal Bowel Sounds, Soft, Non-Tender, No Distention Extremities: No Pedal Edema Skin: Warm, Dry, Intact Neurological: No New Focal Deficit Psy/Mental Status: Alert, Normal Affect, Normal Mood Sepsis Event Note - Evaluation Sepsis Screening Result: No Definite Risk - Focused Exam Vital Signs: Vital Signs Temp Pulse Pulse Resp BP BP Pulse Ox 04/01/19 07:40 98.7 F 91 16 136/68 95 04/01/19 04:45 99.4 F 70 18 116/60 91 L 03/31/19 23:40 97 F 83 18 123/66 91 L 03/31/19 20:50 88 116/55 L Date Exam was Performed: 04/01/19 Time Exam was Performed: 10:43 - Problem List Review Problem List Initiated/Reviewed/Updated: Yes - My Orders Last 24 Hours: My Active Orders 03/31/19 07:30 Insulin Aspart [NovoLOG] See Protocol SUBCUT TIDAC 03/31/19 09:00 Clopidogrel [Plavix] 75 mg PO DAILY DULoxetine [Cymbalta] 30 mg PO DAILY Isosorbide Mononitrate [Imdur] 30 mg PO DAILY Topiramate [Topamax] 25 mg PO DAILY atorvaSTATin [Lipitor] 10 mg PO DAILY 03/31/19 11:15 Benzocaine/Cetylpyrd/Menthol [Cepacol Sore Throat] 1 lozenge MUCMEM Q2HR PRN 04/01/19 09:00 guaiFENesin [Mucinex] 600 mg PO BID - Plan Plan:: 1. Fever/tachycardia/hypoxia secondary to influenza A- fever, tachy, and hypoxia resolved. CTA did not show PT but did show hazy perivascular markings consistent with pulmonary vascular congestion. On Tamiflu and Levaquin. Monitor on telemetry. 2.Nausea- reports mucus drainage makes him sick to his stomach. Zofran helps. Will add Mucinex and flonase 3. DMI- accuchecks, home Lantus, sliding scale 4. CAD/HTN/CHF- continue home meds, monitor on telemetry, monitor for signs of fluid overload. Strict I/Os and daily weights.
[2019-04-01] MEDS: Ondansetron 4 MG/2 ML SDV IVPUSH PRN (08:37)
[2019-04-01] MEDS: Insulin Aspart 100 Units/ML 3 ML Pen SUBCUT SCH ×3 (08:54→17:08)
[2019-04-01] MEDS: Topiramate 50 MG Tab PO SCH (09:00)
[2019-04-01] MEDS: DULoxetine 30 MG Cap PO SCH (09:01)
[2019-04-01] MEDS: Clopidogrel 75 MG Tab PO SCH (09:01)
[2019-04-01] MEDS: Isosorbide Mononitrate 30 MG Tab.ER PO SCH (09:02)
[2019-04-01] MEDS: Metoprolol Tartrate 25 MG Tab PO SCH ×2 (09:03→20:42)
[2019-04-01] MEDS: guaiFENesin 600 MG Tab.ER PO SCH ×2 (09:03→20:41)
[2019-04-01] MEDS: Oseltamivir 75 MG Cap PO SCH ×2 (09:04→20:42)
[2019-04-01] MEDS: atorvaSTATin 10 MG Tab PO SCH (09:04)
[2019-04-01] MEDS: Fluticasone Propionate Nasal Spray 16 GM Bottle NASBOTH SCH (12:22)
[2019-04-01] MEDS: Acetaminophen 325 MG Tab PO PRN (12:25)
[2019-04-01] MEDS: Levofloxacin/Dextrose 5%-Water 750 MG in Premix Bag 1 BAG IV SCH (17:07)
[2019-04-01] MEDS ORDERED: Insulin Glargine,Human Rec. Analog 100 Units/ML 3 ML Pen SUBCUT SCH (21:00)
[2019-04-02] MEDS: Heparin Sodium 5,000 Units/ML Vial SUBCUT SCH ×2 (05:36→12:38)
[2019-04-02 06:08] LABS: BLOOD UREA NITROGEN,BUN 11 mg/dL (7.0-18.0); CARBON DIOXIDE,CO2 32.2 mmol/L (21.0-32.0); CHLORIDE,CL 106 mmol/L (98-107); GLUCOSE RANDOM 97 mg/dL (74-106); POTASSIUM,K 3.6 mmol/L (3.5-5.1); SODIUM,NA 145 mmol/L (136-148)
[2019-04-02] MEDS: Insulin Aspart 100 Units/ML 3 ML Pen SUBCUT SCH ×2 (07:51→12:43)
[2019-04-02] MEDS: Metoprolol Tartrate 25 MG Tab PO SCH (09:06)
[2019-04-02] MEDS: Isosorbide Mononitrate 30 MG Tab.ER PO SCH (09:06)
[2019-04-02] MEDS: atorvaSTATin 10 MG Tab PO SCH (09:06)
[2019-04-02] MEDS: Clopidogrel 75 MG Tab PO SCH (09:07)
[2019-04-02] MEDS: guaiFENesin 600 MG Tab.ER PO SCH (09:07)
[2019-04-02] MEDS: DULoxetine 30 MG Cap PO SCH (09:07)
[2019-04-02] MEDS: Oseltamivir 75 MG Cap PO SCH (09:07)
[2019-04-02] MEDS: Topiramate 50 MG Tab PO SCH (09:08)
[2019-04-02] MEDS: Fluticasone Propionate Nasal Spray 16 GM Bottle NASBOTH SCH (09:17)
[2019-04-02 12:08] VITALS: BP 96/53; PULSE 69
[2019-04-02] MEDS: Ondansetron 4 MG/2 ML SDV IVPUSH PRN (12:49)
--- NOTE | 2019-04-02 13:48 | PCM.DCSUM1 ---
<Georgie Peres - Last Filed: 04/02/19 13:45> Discharge Summary - Hospital Course HPI Initial Comments: Admission Date: 03/30/19 Discharge Date: 04/02/19 Admission Diagnosis: 1. Fevers, tachycardia, and hypoxia secondary to influenza A 2. RUQ pain, nausea/vomiting/diarrhea 3. DMI 4. Chronic conditions- CAD, CHF, seizure Discharge Diagnosis: 1. Fevers, tachycardia, and hypoxia secondary to influenza A- resolved 2. RUQ pain, nausea/vomiting/diarrhea- resolved 3. DMI 4. Chronic conditions- CAD, CHF, seizure Procedures: None Consults: None Hospital Course: The patient is a 53 year old male with past medical history of DMI, HTN, CAD, pacemaker, seizure, and CHF who presents to the ER with fever/ chills and SOB Reports RUQ abdominal pain with nausea, vomiting and diarrhea. Hasn't been able to keep anything down for the past 4 days. Hx of CHF, reports orthopnea and 5 lb weight gain, isn't on diuretic and no lower extremity edema. Last echo in the chart was 2016 and showed a EF <20%. Was seen in the ER two days ago with similar complaints, CXR, influenza, and strep test were negative. Sent home on Augmentin. In the ER, work up did not show a leukocytosis or anemia. Trop was negative and BNP was 6. Bilirubin was elevated at 1.2 but that seems to be his baseline, AST and ALT wnl. CXR showed no acute cardiopulmonary processes. In the ER, temp was 103.2 came down to 101.8 with Tylenol. Was tachycardic with HR of 140, EKG showed paced rhythm with HR 121. Requiring oxygen, 97% on 2L. He was also given 2 L bolus and Zofran in ER. Admitted to the medical floor. D-dimer obtained and was elevated, CTA showed no PE but did see pulmonary vascular congestion. Tested positive for influenza A. Lactate obtained and wnl. Started on Tamiflu and Levaquin. Monitored on telemetry without significant events. Trended LFTs, bilirubin returned to normal and AST/ALT never elevated, RUQ pain/vomiting/diarrhea resolved. Was placed on home insulin and sliding scale became hypoglycemic. Given amp D50, sugars improved then decreased his long acting. Was continued on his home meds for chronic conditions. Over the course of his stay his fevers/tachycardia and hypoxia resolved. By day of discharge, patient was feeling better and wanted to go home. Disposition: Home Discharge Condition: vitals stable, tolerating oral diet, ambulating without difficulty, symptom improvement Discharge Instructions: diabetic diet as tolerated, activity as tolerated, take medications as prescribed. Symptoms to report to physician include fever/chills , chest pain, shortness of breath, abdominal pain, erythema, drainage/discharge , or not improving as expected. Discharge Medications: Isosorbide Mononitrate [Imdur] 30 mg PO DAILY DULoxetine [Cymbalta] 30 mg PO DAILY Insulin Aspart [NovoLOG] See Protocol SUBCUT TIDMEALS Clopidogrel [Plavix] 75 mg PO DAILY Insulin Glarg,Human.Rec.Analog [Lantus] 30 unit SUBCUT BEDTIME Metoprolol Tartrate 25 mg PO BID Topiramate 25 mg PO DAILY atorvaSTATin [Lipitor] 10 mg PO DAILY Levofloxacin 750 mg PO DAILY Oseltamivir [Tamiflu] 75 mg PO BID Follow-up: PCP- Dr. Diez 04/09/19 - Discharge Data Discharge Date: 04/02/19 Discharge Disposition: Home, Self-Care 01 Condition: Stable - Referral to Home Health Primary Care Physician: Elder Diez MD - Patient Instructions Diet: Diabetic Diet Activity: As Tolerated Showering/Bathing: May Shower Notify Provider of: Fever, Increased Pain, Swelling and Redness, Drainage, Nausea and/or Vomiting Other/Special Instructions: Additional symptoms include chest pain, shortness of breath, or abdominal pain - Discharge Plan *PRESCRIPTION DRUG MONITORING PROGRAM REVIEWED*: No *COPY OF PRESCRIPTION DRUG MONITORING REPORT IN PATIENT CEZAR: No Prescriptions/Med Rec: Levofloxacin 750 mg PO DAILY 2 Days #2 tablet Oseltamivir [Tamiflu] 75 mg PO BID 3 Days #6 cap Home Medications: Home Meds Isosorbide Mononitrate [Imdur] 30 mg PO DAILY 12/17/16 [History] DULoxetine [Cymbalta] 30 mg PO DAILY 12/23/16 [History] Insulin Aspart [NovoLOG] See Protocol SUBCUT TIDMEALS #0 12/25/16 [Rx] Clopidogrel [Plavix] 75 mg PO DAILY 01/05/19 [History] Insulin Glarg,Human.Rec.Analog [Lantus] 30 unit SUBCUT BEDTIME 01/05/19 [History ] Metoprolol Tartrate 25 mg PO BID 01/05/19 [History] Topiramate 25 mg PO DAILY 01/05/19 [History] atorvaSTATin [Lipitor] 10 mg PO DAILY 01/05/19 [History] Levofloxacin 750 mg PO DAILY 2 Days #2 tablet 04/02/19 [Rx] Oseltamivir [Tamiflu] 75 mg PO BID 3 Days #6 cap 04/02/19 [Rx] Patient Handouts: Influenza, Adult, [id number], Oseltamivir capsules, Levofloxacin tablets Referrals: [facility] [Outside] Elder Diez MD [Primary Care Provider] - 04/09/19 1:30 pm - Discharge Summary/Plan Comment DC Time >30 min.: No - Patient Data Vitals - Most Recent: Last Vital Signs Temp 96.1 F 04/02/19 12:05 Pulse 69 04/02/19 12:05 Resp 16 04/02/19 12:05 BP 96/53 L 04/02/19 12:05 Pulse Ox 91 L 04/02/19 12:05 Weight - Most Recent: 85.91 kg I&O - Last 24 hours: Intake & Output 04/01/19 04/02/19 04/02/19 22:59 06:59 14:59 Intake Total 920 320 Balance 920 320 Lab Results - Last 24 hrs: Laboratory Results - last 24 hr 04/01/19 04/01/19 04/02/19 Range/Units 16:55 20:45 05:46 WBC 2.62 L (4.0-11.0) K/uL RBC 4.65 (4.50-5.90) M/uL Hgb 14.7 (13.0-17.0) g/dL Hct 41.7 (38.0-50.0) % MCV 89.7 (80.0-98.0) fL MCH 31.6 (27.0-32.0) pg MCHC 35.3 (31.0-37.0) g/dL RDW Std Deviation 41.0 (28.0-62.0) fl RDW Coeff of Charles 13 (11.0-15.0) % Plt Count 158 (150-400) K/uL MPV 9.60 (7.40-12.00) fL Neut % (Auto) 43.9 L (48.0-80.0) % Lymph % (Auto) 44.7 H (16.0-40.0) % [place] % (Auto) 9.9 (0.0-15.0) % Eos % (Auto) 1.1 (0.0-7.0) % Baso % (Auto) 0.4 (0.0-1.5) % Neut # (Auto) 1.2 L (1.4-5.7) K/uL Lymph # (Auto) 1.2 (0.6-2.4) K/uL [place] # (Auto) 0.3 (0.0-0.8) K/uL Eos # (Auto) 0.0 (0.0-0.7) K/uL Baso # (Auto) 0.0 (0.0-0.1) K/uL Nucleated RBC % 0.0 /100WBC Nucleated RBCs # 0 K/uL Sodium (136-148) mmol/L Potassium (3.5-5.1) mmol/L Chloride (98-107) mmol/L Carbon Dioxide (21.0-32.0) mmol/L BUN (7.0-18.0) mg/dL Creatinine (0.8-1.3) mg/dL Est Cr Clr Drug Dosing mL/min Estimated GFR (MDRD) ml/min Glucose (74-106) mg/dL POC Glucose 200 H 301 H (60-110) mg/dL Calcium (8.5-10.1) mg/dL 04/02/19 04/02/19 04/02/19 Range/Units 05:46 06:01 08:18 WBC (4.0-11.0) K/uL RBC (4.50-5.90) M/uL Hgb (13.0-17.0) g/dL Hct (38.0-50.0) % MCV (80.0-98.0) fL MCH (27.0-32.0) pg MCHC (31.0-37.0) g/dL RDW Std Deviation (28.0-62.0) fl RDW Coeff of Charles (11.0-15.0) % Plt Count (150-400) K/uL MPV (7.40-12.00) fL Neut % (Auto) (48.0-80.0) % Lymph % (Auto) (16.0-40.0) % [place] % (Auto) (0.0-15.0) % Eos % (Auto) (0.0-7.0) % Baso % (Auto) (0.0-1.5) % Neut # (Auto) (1.4-5.7) K/uL Lymph # (Auto) (0.6-2.4) K/uL [place] # (Auto) (0.0-0.8) K/uL Eos # (Auto) (0.0-0.7) K/uL Baso # (Auto) (0.0-0.1) K/uL Nucleated RBC % /100WBC Nucleated RBCs # K/uL Sodium 145 (136-148) mmol/L Potassium 3.6 (3.5-5.1) mmol/L Chloride 106 (98-107) mmol/L Carbon Dioxide 32.2 H (21.0-32.0) mmol/L BUN 11 (7.0-18.0) mg/dL Creatinine 0.9 (0.8-1.3) mg/dL Est Cr Clr Drug Dosing 109.09 mL/min Estimated GFR (MDRD) > 60.0 ml/min Glucose 97 (74-106) mg/dL POC Glucose 89 85 (60-110) mg/dL Calcium 8.5 (8.5-10.1) mg/dL 04/02/19 Range/Units 12:11 WBC (4.0-11.0) K/uL RBC (4.50-5.90) M/uL Hgb (13.0-17.0) g/dL Hct (38.0-50.0) % MCV (80.0-98.0) fL MCH (27.0-32.0) pg MCHC (31.0-37.0) g/dL RDW Std Deviation (28.0-62.0) fl RDW Coeff of Charles (11.0-15.0) % Plt Count (150-400) K/uL MPV (7.40-12.00) fL Neut % (Auto) (48.0-80.0) % Lymph % (Auto) (16.0-40.0) % [place] % (Auto) (0.0-15.0) % Eos % (Auto) (0.0-7.0) % Baso % (Auto) (0.0-1.5) % Neut # (Auto) (1.4-5.7) K/uL Lymph # (Auto) (0.6-2.4) K/uL [place] # (Auto) (0.0-0.8) K/uL Eos # (Auto) (0.0-0.7) K/uL Baso # (Auto) (0.0-0.1) K/uL Nucleated RBC % /100WBC Nucleated RBCs # K/uL Sodium (136-148) mmol/L Potassium (3.5-5.1) mmol/L Chloride (98-107) mmol/L Carbon Dioxide (21.0-32.0) mmol/L BUN (7.0-18.0) mg/dL Creatinine (0.8-1.3) mg/dL Est Cr Clr Drug Dosing mL/min Estimated GFR (MDRD) ml/min Glucose (74-106) mg/dL POC Glucose 194 H (60-110) mg/dL Calcium (8.5-10.1) mg/dL SUSAN Results - Last 24 hrs: Microbiology 03/30/19 15:51 Aerobic Blood Culture - Preliminary Blood - Venous NO GROWTH AFTER 2 DAYS Anaerobic Blood Culture - Final 03/30/19 15:07 Aerobic Blood Culture - Preliminary Blood NO GROWTH AFTER 2 DAYS Anaerobic Blood Culture - Preliminary NO GROWTH AFTER 2 DAYS Med Orders - Current: Current Medications Acetaminophen (Tylenol) 650 mg PO Q4H PRN PRN Reason: Pain/Fever Last Admin: 04/01/19 12:25 Dose: 650 mg Atorvastatin Calcium (Lipitor) 10 mg PO DAILY [facility] Last Admin: 04/02/19 09:06 Dose: 10 mg Benzocaine/Menthol (Cepacol Sore Throat) 1 lozenge MUCMEM Q2HR PRN PRN Reason: Sore Throat Last Admin: 04/01/19 17:08 Dose: 1 lozenge Clopidogrel Bisulfate (Plavix) 75 mg PO DAILY [facility] Last Admin: 04/02/19 09:07 Dose: 75 mg Duloxetine HCl (Cymbalta) 30 mg PO DAILY [facility] Last Admin: 04/02/19 09:07 Dose: 30 mg Fluticasone Propionate (Flonase) 0 gm NASBOTH DAILY [facility] Last Admin: 04/02/19 09:17 Dose: 1 spray Guaifenesin (Mucinex) 600 mg PO BID [facility] Last Admin: 04/02/19 09:07 Dose: 600 mg Heparin Sodium (Porcine) (Heparin Sodium) 5,000 units SUBCUT Q8H [facility] Last Admin: 04/02/19 12:38 Dose: 5,000 units Levofloxacin/Dextrose 750 mg/ (Premix) 150 mls @ 100 mls/hr IV Q24H [facility] Last Admin: 04/01/19 17:07 Dose: 100 mls/hr Insulin Aspart (Novolog) 0 unit SUBCUT TIDAC [facility]; Protocol Last Admin: 04/02/19 12:43 Dose: 2 units Insulin Glargine (Lantus Solostar) 20 units SUBCUT BEDTIME [facility] Last Admin: 04/01/19 20:45 Dose: 20 units Isosorbide Mononitrate (Imdur) 30 mg PO DAILY [facility] Last Admin: 04/02/19 09:06 Dose: 30 mg Metoprolol Tartrate (Lopressor) 25 mg PO BID [facility] Last Admin: 04/02/19 09:06 Dose: 25 mg Ondansetron HCl (Zofran) 4 mg IVPUSH Q4H PRN PRN Reason: Nausea/Vomiting Last Admin: 04/02/19 12:49 Dose: 4 mg Oseltamivir Phosphate (Tamiflu) 75 mg PO BID [facility] Stop: 04/04/19 21:01 Last Admin: 04/02/19 09:07 Dose: 75 mg Topiramate (Topamax) 25 mg PO DAILY [facility] Last Admin: 04/02/19 09:08 Dose: 25 mg Discontinued Medications Acetaminophen (Tylenol Extra Strength) 1,000 mg PO ONETIME ONE Stop: 03/30/19 16:18 Last Admin: 03/30/19 16:25 Dose: 1,000 mg Dextrose/Water (Dextrose 50% In Water) 50 ml IVPUSH ONETIME ONE Stop: 03/31/19 07:17 Last Admin: 03/31/19 07:51 Dose: 25 ml Sodium Chloride (Normal Saline) 2,000 mls @ 999 mls/hr IV .Bolus ONE Stop: 03/30/19 16:56 Last Admin: 03/30/19 15:20 Dose: 999 mls/hr Insulin Glargine (Lantus Solostar) 30 units SUBCUT BEDTIME [facility] Last Admin: 03/30/19 23:53 Dose: Not Given Insulin Glargine (Lantus Solostar) 15 units SUBCUT BEDTIME [facility] Last Admin: 03/31/19 20:47 Dose: 15 units Iopamidol (Isovue Multipack-370 (76%)) 50 ml IVPUSH ONETIME ONE Stop: 03/30/19 18:56 Last Admin: 03/30/19 18:55 Dose: 50 ml Ondansetron HCl (Zofran) 8 mg IVPUSH ONETIME ONE Stop: 03/30/19 14:58 Last Admin: 03/30/19 15:21 Dose: 8 mg Oseltamivir Phosphate (Tamiflu) 75 mg PO DAILY [facility] Last Admin: 03/31/19 09:48 Dose: 75 mg <Jovany Spaulding J - Last Filed: 04/04/19 19:35> Discharge Summary - Referral to Home Health Primary Care Physician: Elder Diez MD - Patient Data Vitals - Most Recent: Last Vital Signs Temp 35.6 C 04/02/19 12:05 Pulse 69 04/02/19 12:05 Resp 16 04/02/19 12:05 BP 96/53 L 04/02/19 12:05 Pulse Ox 91 L 04/02/19 12:05 SUSAN Results - Last 24 hrs: Microbiology 03/30/19 15:51 Aerobic Blood Culture - Final Blood - Venous NO GROWTH AFTER 5 DAYS Anaerobic Blood Culture - Final 03/30/19 15:07 Aerobic Blood Culture - Final Blood NO GROWTH AFTER 5 DAYS Anaerobic Blood Culture - Final NO GROWTH AFTER 5 DAYS Med Orders - Current: Current Medications Discontinued Medications Acetaminophen (Tylenol Extra Strength) 1,000 mg PO ONETIME ONE Stop: 03/30/19 16:18 Last Admin: 03/30/19 16:25 Dose: 1,000 mg Acetaminophen (Tylenol) 650 mg PO Q4H PRN PRN Reason: Pain/Fever Last Admin: 04/01/19 12:25 Dose: 650 mg Atorvastatin Calcium (Lipitor) 10 mg PO DAILY [facility] Last Admin: 04/02/19 09:06 Dose: 10 mg Benzocaine/Menthol (Cepacol Sore Throat) 1 lozenge MUCMEM Q2HR PRN PRN Reason: Sore Throat Last Admin: 04/01/19 17:08 Dose: 1 lozenge Clopidogrel Bisulfate (Plavix) 75 mg PO DAILY [facility] Last Admin: 04/02/19 09:07 Dose: 75 mg Dextrose/Water (Dextrose 50% In Water) 50 ml IVPUSH ONETIME ONE Stop: 03/31/19 07:17 Last Admin: 03/31/19 07:51 Dose: 25 ml Duloxetine HCl (Cymbalta) 30 mg PO DAILY [facility] Last Admin: 04/02/19 09:07 Dose: 30 mg Fluticasone Propionate (Flonase) 0 gm NASBOTH DAILY [facility] Last Admin: 04/02/19 09:17 Dose: 1 spray Guaifenesin (Mucinex) 600 mg PO BID [facility] Last Admin: 04/02/19 09:07 Dose: 600 mg Heparin Sodium (Porcine) (Heparin Sodium) 5,000 units SUBCUT Q8H [facility] Last Admin: 04/02/19 12:38 Dose: 5,000 units Sodium Chloride (Normal Saline) 2,000 mls @ 999 mls/hr IV .Bolus ONE Stop: 03/30/19 16:56 Last Admin: 03/30/19 15:20 Dose: 999 mls/hr Levofloxacin/Dextrose 750 mg/ (Premix) 150 mls @ 100 mls/hr IV Q24H [facility] Last Admin: 04/01/19 17:07 Dose: 100 mls/hr Insulin Aspart (Novolog) 0 unit SUBCUT TIDAC [facility]; Protocol Last Admin: 04/02/19 12:43 Dose: 2 units Insulin Glargine (Lantus Solostar) 30 units SUBCUT BEDTIME [facility] Last Admin: 03/30/19 23:53 Dose: Not Given Insulin Glargine (Lantus Solostar) 15 units SUBCUT BEDTIME [facility] Last Admin: 03/31/19 20:47 Dose: 15 units Insulin Glargine (Lantus Solostar) 20 units SUBCUT BEDTIME [facility] Last Admin: 04/01/19 20:45 Dose: 20 units Iopamidol (Isovue Multipack-370 (76%)) 50 ml IVPUSH ONETIME ONE Stop: 03/30/19 18:56 Last Admin: 03/30/19 18:55 Dose: 50 ml Isosorbide Mononitrate (Imdur) 30 mg PO DAILY [facility] Last Admin: 04/02/19 09:06 Dose: 30 mg Metoprolol Tartrate (Lopressor) 25 mg PO BID [facility] Last Admin: 04/02/19 09:06 Dose: 25 mg Ondansetron HCl (Zofran) 8 mg IVPUSH ONETIME ONE Stop: 03/30/19 14:58 Last Admin: 03/30/19 15:21 Dose: 8 mg Ondansetron HCl (Zofran) 4 mg IVPUSH Q4H PRN PRN Reason: Nausea/Vomiting Last Admin: 04/02/19 12:49 Dose: 4 mg Oseltamivir Phosphate (Tamiflu) 75 mg PO DAILY [facility] Last Admin: 03/31/19 09:48 Dose: 75 mg Oseltamivir Phosphate (Tamiflu) 75 mg PO BID [facility] Stop: 04/04/19 21:01 Last Admin: 04/02/19 09:07 Dose: 75 mg Topiramate (Topamax) 25 mg PO DAILY [facility] Last Admin: 04/02/19 09:08 Dose: 25 mg - Free Text/Narrative Note: I have seen and evaluated the patient with the resident. I have discussed findings and treatment plan with the resident. I agree with the assessment and plan in the following note.
--- NOTE | 2019-04-20 09:59 | EDM.PDOC ---
ED HPI GENERAL MEDICAL PROBLEM - General Chief Complaint: Respiratory Problem Stated Complaint: FLU SYMPTOMS Time Seen by Provider: 03/30/19 14:54 Source of Information: Reports: Patient History Limitations: Reports: No Limitations - History of Present Illness INITIAL COMMENTS - FREE TEXT/NARRATIVE: this is an addenden for patient seen by me 03/30/19 in the ED for sob and hypoxia , patient have been prev dx with influenza B treatment with tamiflu started but 3 days of fever chills and nausea vomiting with loose stool left patient with increase weakness and increase sob, found to have pulse ox of 85 on room air in the ER and fever of 101 with difficulty tolerating PO intake due to vomiting. denies any severe abd pain, patient progressively weak and here for evaluation for possible admission to the hospital, Onset: Gradual Duration: Day(s): Location: Reports: Face, Chest, Abdomen Severity: Moderate Improves with: Reports: None Worsens with: Reports: Breathing, Eating, Medication Chest Pain Score (Numeric/FACES): 8 Throat Pain Score (Numeric/FACES): 8 - Related Data Allergies Allergy/AdvReac Type Severity Reaction Status Date / Time No Known Allergies Allergy Verified 03/30/19 18:26 Home Meds: Home Meds Isosorbide Mononitrate [Imdur] 30 mg PO DAILY 12/17/16 [History] DULoxetine [Cymbalta] 30 mg PO DAILY 12/23/16 [History] Insulin Aspart [NovoLOG] See Protocol SUBCUT TIDMEALS #0 12/25/16 [Rx] Clopidogrel [Plavix] 75 mg PO DAILY 01/05/19 [History] Insulin Glarg,Human.Rec.Analog [Lantus] 30 unit SUBCUT BEDTIME 01/05/19 [History ] Metoprolol Tartrate 25 mg PO BID 01/05/19 [History] Topiramate 25 mg PO DAILY 01/05/19 [History] atorvaSTATin [Lipitor] 10 mg PO DAILY 01/05/19 [History] Levofloxacin 750 mg PO DAILY 2 Days #2 tablet 04/02/19 [Rx] Oseltamivir [Tamiflu] 75 mg PO BID 3 Days #6 cap 04/02/19 [Rx] Past Medical History - Past Health History Medical/Surgical History: Denies Medical/Surgical History HEENT History: Reports: None Cardiovascular History: Reports: CAD, Heart Failure, High Cholesterol, Hypertension, [place], Pacemaker Other Cardiovascular History: Valve Problem Respiratory History: Reports: Other (See Below) Other Respiratory History: recently diagnosed with nodules in lungs Gastrointestinal History: Reports: None Genitourinary History: Reports: Chronic Renal Insuffiency Musculoskeletal History: Reports: Back Pain, Chronic Neurological History: Reports: Neuropathy, Diabetic, Other (See Below) Other Neuro History: Intracranial hypertension Psychiatric History: Reports: Anxiety, Depression Endocrine/Metabolic History: Reports: Diabetes, Type I Hematologic History: Reports: None Immunologic History: Reports: None Oncologic (Cancer) History: Reports: None Dermatologic History: Reports: None - Infectious Disease History Infectious Disease History: Reports: Influenza - Past Surgical History Head Surgeries/Procedures: Reports: None HEENT Surgical History: Reports: Oral Surgery Cardiovascular Surgical History: Reports: AICD, Coronary Artery Stent, Other ( See Below) Respiratory Surgical History: Reports: None GI Surgical History: Reports: Cholecystectomy Male Surgical History: Reports: None Endocrine Surgical History: Reports: None Neurological Surgical History: Reports: None Musculoskeletal Surgical History: Reports: None Oncologic Surgical History: Reports: None Dermatological Surgical History: Reports: None Social & Family History - Family History Family Medical History: Noncontributory - Tobacco Use Smoking Status *Q: Never Smoker Second Hand Smoke Exposure: No - Caffeine Use Caffeine Use: Reports: None - Recreational Drug Use Recreational Drug Use: No - Living Situation & Occupation Living situation: Reports: , with Spouse, with Family (2 kids) Occupation: Unemployed ED ROS GENERAL - Review of Systems Review Of Systems: Comprehensive ROS is negative, except as noted in HPI. Constitutional: Reports: Fever, Chills, Malaise, Weakness, Fatigue, Decreased Appetite HEENT: Reports: Rhinitis, Throat Pain Respiratory: Reports: Shortness of Breath, Cough, Sputum. Denies: Wheezing, Pleuritic Chest Pain Cardiovascular: Reports: No Symptoms, Dyspnea on Exertion, Lightheadedness. Denies: Edema Endocrine: Reports: No Symptoms GI/Abdominal: Reports: Anorexia, Diarrhea, Nausea, Vomiting : Reports: No Symptoms Musculoskeletal: Reports: Joint Pain, Muscle Pain Skin: Reports: No Symptoms Neurological: Reports: No Symptoms Psychiatric: Reports: No Symptoms Immunologic: Reports: No Symptoms ED EXAM, GENERAL - Physical Exam Exam: See Below Exam Limited By: No Limitations General Appearance: Alert Eye Exam: Bilateral Eye: EOMI Ears: Normal External Exam Nose: Nasal Drainage Throat/Mouth: No Airway Compromise Head: Atraumatic, Normocephalic Neck: Normal Inspection, Supple, Non-Tender Respiratory/Chest: Decreased Breath Sounds, Crackles, Rhonchi, Other (mild use of accessory muscle) Cardiovascular: Normal Peripheral Pulses, No Edema GI/Abdominal: Normal Bowel Sounds, Soft, Non-Tender, No Distention Back Exam: Normal Inspection Extremities: No Pedal Edema Neurological: Alert, Oriented, CN II-XII Intact Psychiatric: Normal Affect Skin Exam: Warm, Dry Course - Vital Signs Text/Narrative:: patient admitted for dehydration and hypoxia probably due to the flu, patient was dehydrated and had oxygen requirement ans well as PO intolerance and persistent fever. blood culture was also sent for possible secondary infection and antibiotic started for possible pneumonia until other sources of infections can be ruled out. hospitalist was contacted and did see patient in the ED for admission. Last Recorded V/S: Last Vital Signs Temp 96.1 F 04/02/19 12:05 Pulse 69 04/02/19 12:05 Resp 16 04/02/19 12:05 BP 96/53 L 04/02/19 12:05 Pulse Ox 91 L 04/02/19 12:05 - Orders/Labs/Meds Labs: Laboratory Tests 03/30/19 03/30/19 03/30/19 Range/Units 15:07 15:07 15:07 WBC 6.06 (4.0-11.0) K/uL RBC 5.11 (4.50-5.90) M/uL Hgb 16.6 (13.0-17.0) g/dL Hct 45.8 (38.0-50.0) % MCV 89.6 (80.0-98.0) fL MCH 32.5 H (27.0-32.0) pg MCHC 36.2 (31.0-37.0) g/dL RDW Std Deviation 41.1 (28.0-62.0) fl RDW Coeff of Charles 13 (11.0-15.0) % Plt Count 181 (150-400) K/uL MPV 10.00 (7.40-12.00) fL Neut % (Auto) 74.0 (48.0-80.0) % Lymph % (Auto) 12.9 L (16.0-40.0) % [place] % (Auto) 12.9 (0.0-15.0) % Eos % (Auto) 0.0 (0.0-7.0) % Baso % (Auto) 0.2 (0.0-1.5) % Neut # (Auto) 4.5 (1.4-5.7) K/uL Lymph # (Auto) 0.8 (0.6-2.4) K/uL [place] # (Auto) 0.8 (0.0-0.8) K/uL Eos # (Auto) 0.0 (0.0-0.7) K/uL Baso # (Auto) 0.0 (0.0-0.1) K/uL Nucleated RBC % 0.0 /100WBC Nucleated RBCs # 0 K/uL D-Dimer, Quantitative (0.0-0.50) mg/L FEU ABG pH (7.35-7.45) ABG pCO2 (35-45) mmHG ABG pO2 (75-100) mmHG ABG HCO3 (22-26) mEq/L ABG Total CO2 ABG Base Excess (-2.0-2.0) Lactate (0.20-2.00) mmol/L Sodium 139 (136-148) mmol/L Potassium 3.4 L (3.5-5.1) mmol/L Chloride 99 (98-107) mmol/L Carbon Dioxide 27.0 (21.0-32.0) mmol/L BUN 14 (7.0-18.0) mg/dL Creatinine 1.2 (0.8-1.3) mg/dL Est Cr Clr Drug Dosing 81.82 mL/min Estimated GFR (MDRD) > 60.0 ml/min Glucose 109 H (74-106) mg/dL Calcium 9.1 (8.5-10.1) mg/dL Total Bilirubin 1.2 H (0.2-1.0) mg/dL AST 29 (15-37) IU/L ALT 24 (14-63) IU/L Alkaline Phosphatase 84 (46-116) U/L Troponin I < 0.050 (0.000-0.056) ng/mL B-Natriuretic Peptide 6 (<100) PG/ML Total Protein 8.2 (6.4-8.2) g/dL Albumin 4.2 (3.4-5.0) g/dL Globulin 4.0 (2.6-4.0) g/dL Albumin/Globulin Ratio 1.0 (0.9-1.6) 03/30/19 03/30/19 03/30/19 Range/Units 15:07 15:17 16:31 WBC (4.0-11.0) K/uL RBC (4.50-5.90) M/uL Hgb (13.0-17.0) g/dL Hct (38.0-50.0) % MCV (80.0-98.0) fL MCH (27.0-32.0) pg MCHC (31.0-37.0) g/dL RDW Std Deviation (28.0-62.0) fl RDW Coeff of Charles (11.0-15.0) % Plt Count (150-400) K/uL MPV (7.40-12.00) fL Neut % (Auto) (48.0-80.0) % Lymph % (Auto) (16.0-40.0) % [place] % (Auto) (0.0-15.0) % Eos % (Auto) (0.0-7.0) % Baso % (Auto) (0.0-1.5) % Neut # (Auto) (1.4-5.7) K/uL Lymph # (Auto) (0.6-2.4) K/uL [place] # (Auto) (0.0-0.8) K/uL Eos # (Auto) (0.0-0.7) K/uL Baso # (Auto) (0.0-0.1) K/uL Nucleated RBC % /100WBC Nucleated RBCs # K/uL D-Dimer, Quantitative 0.68 H (0.0-0.50) mg/L FEU ABG pH 7.446 (7.35-7.45) ABG pCO2 36 (35-45) mmHG ABG pO2 61 L (75-100) mmHG ABG HCO3 25 (22-26) mEq/L ABG Total CO2 21.8 ABG Base Excess 1.1 (-2.0-2.0) Lactate 1.7 (0.20-2.00) mmol/L Sodium (136-148) mmol/L Potassium (3.5-5.1) mmol/L Chloride (98-107) mmol/L Carbon Dioxide (21.0-32.0) mmol/L BUN (7.0-18.0) mg/dL Creatinine (0.8-1.3) mg/dL Est Cr Clr Drug Dosing mL/min Estimated GFR (MDRD) ml/min Glucose (74-106) mg/dL Calcium (8.5-10.1) mg/dL Total Bilirubin (0.2-1.0) mg/dL AST (15-37) IU/L ALT (14-63) IU/L Alkaline Phosphatase (46-116) U/L Troponin I (0.000-0.056) ng/mL B-Natriuretic Peptide (<100) PG/ML Total Protein (6.4-8.2) g/dL Albumin (3.4-5.0) g/dL Globulin (2.6-4.0) g/dL Albumin/Globulin Ratio (0.9-1.6) Meds: Medications Discontinued Medications Generic Name Dose Route Start Last Admin Trade Name Freq PRN Reason Stop Dose Admin Acetaminophen 1,000 mg 03/30/19 16:17 03/30/19 16:25 Tylenol Extra Strength PO 03/30/19 16:18 1,000 mg ONETIME ONE Administration Acetaminophen 650 mg 03/30/19 17:14 04/01/19 12:25 Tylenol PO 650 mg Q4H PRN Administration Pain/Fever Atorvastatin Calcium 10 mg 03/31/19 09:00 04/02/19 09:06 Lipitor PO 10 mg DAILY ESTEPHANIA Administration Benzocaine/Menthol 1 lozenge 03/31/19 11:15 04/01/19 17:08 Cepacol Sore Throat MUCMEM 1 lozenge Q2HR PRN Administration Sore Throat Clopidogrel Bisulfate 75 mg 03/31/19 09:00 04/02/19 09:07 Plavix PO 75 mg DAILY ESTEPHANIA Administration Dextrose/Water 50 ml 03/31/19 07:16 03/31/19 07:51 Dextrose 50% In Water IVPUSH 03/31/19 07:17 25 ml ONETIME ONE Administration Duloxetine HCl 30 mg 03/31/19 09:00 04/02/19 09:07 Cymbalta PO 30 mg DAILY ESTEHPANIA Administration Fluticasone Propionate 0 gm 04/01/19 10:45 04/02/19 09:17 Flonase NASBOTH 1 spray DAILY ESTEPHANIA Administration Guaifenesin 600 mg 04/01/19 09:00 04/02/19 09:07 Mucinex PO 600 mg BID ESTEPHANIA Administration Heparin Sodium (Porcine) 5,000 units 03/31/19 12:45 04/02/19 12:38 Heparin Sodium SUBCUT 5,000 units Q8H ESTEPHANIA Administration Sodium Chloride 2,000 mls @ 999 mls/hr 03/30/19 14:56 03/30/19 15:20 Normal Saline IV 03/30/19 16:56 999 mls/hr .Bolus ONE Administration Levofloxacin/Dextrose 750 mg/ 150 mls @ 100 mls/hr 03/30/19 17:15 04/01/19 17 :07 Premix IV 100 mls/hr Q24H ESTEPHANIA Administration Insulin Aspart 0 unit 03/31/19 07:30 04/02/19 12:43 Novolog SUBCUT 2 units TIDAC ESTEPHANIA Administration Protocol Insulin Glargine 30 units 03/30/19 21:00 03/30/19 23:53 Lantus Solostar SUBCUT Not Given BEDTIME ESTEPHANIA Insulin Glargine 15 units 03/31/19 21:00 03/31/19 20:47 Lantus Solostar SUBCUT 15 units BEDTIME ESTEPHANIA Administration Insulin Glargine 20 units 04/01/19 21:00 04/01/19 20:45 Lantus Solostar SUBCUT 20 units BEDTIME ESTEPHANIA Administration Iopamidol 50 ml 03/30/19 18:55 03/30/19 18:55 Isovue Multipack-370 (76%) IVPUSH 03/30/19 18:56 50 ml ONETIME ONE Administration Isosorbide Mononitrate 30 mg 03/31/19 09:00 04/02/19 09:06 Imdur PO 30 mg DAILY ESTEPHANIA Administration Metoprolol Tartrate 25 mg 03/30/19 21:00 04/02/19 09:06 Lopressor PO 25 mg BID ESTEPHANIA Administration Ondansetron HCl 8 mg 03/30/19 14:57 03/30/19 15:21 Zofran IVPUSH 03/30/19 14:58 8 mg ONETIME ONE Administration Ondansetron HCl 4 mg 03/30/19 17:14 04/02/19 12:49 Zofran IVPUSH 4 mg Q4H PRN Administration Nausea/Vomiting Oseltamivir Phosphate 75 mg 03/30/19 19:00 03/31/19 09:48 Tamiflu PO 75 mg DAILY ESTEPHANIA Administration Oseltamivir Phosphate 75 mg 03/31/19 21:00 04/02/19 09:07 Tamiflu PO 04/04/19 21:01 75 mg BID ESTEPHANIA Administration Topiramate 25 mg 03/31/19 09:00 04/02/19 09:08 Topamax PO 25 mg DAILY ESTEPHANIA Administration Departure - Departure Time of Disposition: 10:09 (dispo time not certain due to original Ed note lost in system but likely same as time of hospitalist admission) Disposition: Admitted As Inpatient 65 Condition: Fair Clinical Impression: Influenza, Hypoxemia - Discharge Information *PRESCRIPTION DRUG MONITORING PROGRAM REVIEWED*: No *COPY OF PRESCRIPTION DRUG MONITORING REPORT IN PATIENT CEZAR: No Sepsis Event Note - Evaluation Sepsis Screening Result: No Definite Risk - Focused Exam Date Exam was Performed: 04/20/19 Time Exam was Performed: 09:59
== END 2019-04-02 15:15 | disposition home or self-care (01) | DRG 194 ==
LOC: MW.ED 14:34 → MW.MS 16:57
PROVIDERS: ADMIT Internal Medicine; ATTEND Internal Medicine
DX: J10.1 Influenza due to other identified influenza virus with other respiratory manifestations (principal); J11.1 Influenza due to unidentified influenza virus with other respiratory manifestations; I13.0 Hypertensive heart and chronic kidney disease with heart failure and stage 1 through stage 4 chronic kidney disease, or unspecified chronic kidney disease; Z90.49 Acquired absence of other specified parts of digestive tract; I25.10 Atherosclerotic heart disease of native coronary artery without angina pectoris; N18.9 Chronic kidney disease, unspecified; I50.9 Heart failure, unspecified; E78.00 Pure hypercholesterolemia, unspecified; E10.42 Type 1 diabetes mellitus with diabetic polyneuropathy; I25.2 Old myocardial infarction; G89.29 Other chronic pain; M54.9 Dorsalgia, unspecified; E10.40 Type 1 diabetes mellitus with diabetic neuropathy, unspecified; E10.22 Type 1 diabetes mellitus with diabetic chronic kidney disease; Z95.810 Presence of automatic (implantable) cardiac defibrillator; F32.9 Major depressive disorder, single episode, unspecified; F41.9 Anxiety disorder, unspecified; Z95.5 Presence of coronary angioplasty implant and graft; Z79.02 Long term (current) use of antithrombotics/antiplatelets; Z79.4 Long term (current) use of insulin; Z79.899 Other long term (current) drug therapy
CPT/HCPCS: 36415; 36600; 71045; 80053; 82803; 83605; 83880; 84484; 85025; 85379; 87040 ×2; A9270; J2405; J7030; 71275; 71275-26; 80048; 81001; 82962; 87804; 93005; 99283; J1644; J1815-GY; J1956; Q9967

== ENCOUNTER 2019-06-11 13:24 | Observation (INO) | payer MEDICAID ==
[2019-06-11] MEDS ORDERED: Sodium Chloride 0.9% 10 ML Syringe FLUSH PRN (13:40)
[2019-06-11] MEDS ORDERED: Sodium Chloride 0.9% 10 ML SDV IV PRN (13:40)
[2019-06-11] MEDS ORDERED: Sodium Chloride 0.9% 2.5 ML Syringe FLUSH PRN (13:40)
--- NOTE | 2019-06-11 14:05 | EDM.PDOC ---
ED HPI GENERAL MEDICAL PROBLEM - General Chief Complaint: Neurological Problem Stated Complaint: FELL AND HIT HEAD A FEW DAYS AGO Time Seen by Provider: 06/11/19 13:47 Source of Information: Reports: Patient History Limitations: Reports: No Limitations - History of Present Illness INITIAL COMMENTS - FREE TEXT/NARRATIVE: This 53 year old male is admitted to the ED with a chief complaint of passing out two days ago striking his forehead on a refrigerator. He states that he recalls hitting his head on the refrigerator but must have been out for several seconds. He states that his passing out has happen a few times before but not injuring. He states that the left side of his head and left ear has pressure in it. He is on Plavix. He denies any nausea or vomiting or visual disturbances. He denies any focal neurologic deficits. He denies any other complaints at this time. Onset: Gradual (two days ago) Location: Reports: Head (left side of head) Severity: Mild (to moderate pressure in the left side of his head) head pain Pain Score (Numeric/FACES): 8 - Related Data Allergies Allergy/AdvReac Type Severity Reaction Status Date / Time No Known Allergies Allergy Verified 06/11/19 13:37 Home Meds: Home Meds Isosorbide Mononitrate [Imdur] 30 mg PO DAILY 12/17/16 [History] DULoxetine [Cymbalta] 30 mg PO DAILY 12/23/16 [History] Insulin Aspart [NovoLOG] See Protocol SUBCUT TIDMEALS #0 12/25/16 [Rx] Clopidogrel [Plavix] 75 mg PO DAILY 01/05/19 [History] Insulin Glarg,Human.Rec.Analog [Lantus] 30 unit SUBCUT BEDTIME 01/05/19 [History ] Metoprolol Tartrate 25 mg PO BID 01/05/19 [History] Topiramate 25 mg PO DAILY 01/05/19 [History] atorvaSTATin [Lipitor] 10 mg PO DAILY 01/05/19 [History] Levofloxacin 750 mg PO DAILY 2 Days #2 tablet 04/02/19 [Rx] Oseltamivir [Tamiflu] 75 mg PO BID 3 Days #6 cap 04/02/19 [Rx] Past Medical History - Past Health History Medical/Surgical History: Denies Medical/Surgical History HEENT History: Reports: None Cardiovascular History: Reports: CAD, Heart Failure, High Cholesterol, Hypertension, [place], Pacemaker Other Cardiovascular History: Valve Problem Respiratory History: Reports: Other (See Below) Other Respiratory History: recently diagnosed with nodules in lungs Gastrointestinal History: Reports: None Genitourinary History: Reports: Chronic Renal Insuffiency Musculoskeletal History: Reports: Back Pain, Chronic Neurological History: Reports: Neuropathy, Diabetic, Other (See Below) Other Neuro History: Intracranial hypertension Psychiatric History: Reports: Anxiety, Depression Endocrine/Metabolic History: Reports: Diabetes, Type I Hematologic History: Reports: None Immunologic History: Reports: None Oncologic (Cancer) History: Reports: None Dermatologic History: Reports: None - Infectious Disease History Infectious Disease History: Reports: Influenza - Past Surgical History Head Surgeries/Procedures: Reports: None HEENT Surgical History: Reports: Oral Surgery Cardiovascular Surgical History: Reports: AICD, Coronary Artery Stent, Other ( See Below) Respiratory Surgical History: Reports: None GI Surgical History: Reports: Cholecystectomy Male Surgical History: Reports: None Endocrine Surgical History: Reports: None Neurological Surgical History: Reports: None Musculoskeletal Surgical History: Reports: None Oncologic Surgical History: Reports: None Dermatological Surgical History: Reports: None Social & Family History - Family History Family Medical History: Noncontributory - Tobacco Use Smoking Status *Q: Unknown Ever Smoked - Caffeine Use Caffeine Use: Reports: None - Living Situation & Occupation Living situation: Reports: , with Spouse, with Family (2 kids) Occupation: Unemployed ED ROS GENERAL - Review of Systems Review Of Systems: See Below Constitutional: Reports: No Symptoms HEENT: Reports: Ear Pain (pressure in left ear), Other (left sided head pressure with a headache). Denies: Hearing Loss, Vision Change Respiratory: Reports: No Symptoms Cardiovascular: Reports: No Symptoms Endocrine: Reports: No Symptoms GI/Abdominal: Reports: No Symptoms : Reports: No Symptoms Musculoskeletal: Reports: No Symptoms Skin: Reports: No Symptoms Neurological: Reports: No Symptoms ED EXAM, HEAD INJURY - Physical Exam Exam: See Below Exam Limited By: No Limitations General Appearance: Alert, WD/WN, No Apparent Distress Head: Scalp Hematoma (left temporal area with tenderness). No: Torres's Sign, Facial Swelling Nexus Criteria: No: Posterior, Midline Cervical Tenderness, Evidence of Intoxication, Altered Level of Consciousness, Focal Neurological Deficit, Painful Distraction Injuries Eyes: Bilateral Eye: EOMI, Normal Fundi, Normal Inspection, PERRL (3.5mm) Ears: Normal External Exam, Normal Canal, Normal TMs Nose: Normal Inspection, Normal Mucousa. No: Nasal Deformity, Nasal Discharge Throat/Mouth: Normal Inspection, Normal Oropharynx Neck: Non-Tender, Full Range of Motion, Normal Alignment, Normal Inspection Respiratory: No Respiratory Distress, Lungs Clear, Normal Breath Sounds Cardiovascular: Normal Peripheral Pulses, Regular Rate, Rhythm, No Edema, No Gallop, No Murmur GI/Abdominal Exam: Normal Bowel Sounds, Soft, Non-Tender, No Distention, No Abnormal Bruit, No Mass (Male) Exam: Deferred Rectal (Males) Exam: Deferred Back Exam: Normal Inspection, Full Range of Motion Extremities: Normal Inspection, Normal Range of Motion, Other (No deformity but complains of tenderness over the left great toe and second toe) 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 Spaulding at 2:20PM. I reviewed all of his studies that were available at the time. His CT of the Head is negative for bleed. His Troponin 1 is pending. His ECG reveals a Atrial sensed and ventricular paced rhythm. He will be admitted to OBS/TELE. The patient agrees with the admission plan. Last Recorded V/S: Last Vital Signs Temp 95.6 F L 06/11/19 13:34 Pulse 94 06/11/19 13:34 Resp 16 06/11/19 13:34 BP 153/97 H 06/11/19 13:34 Pulse Ox 99 06/11/19 13:34 - Orders/Labs/Meds Orders: Active Orders 24 hr Category Date Time Status Bedrest [RC] ASDIRECTED Care 06/11/19 13:40 Active Cardiac Monitoring [RC] . DIRECTED Care 06/11/19 13:40 Active EKG Documentation Completion [RC] STAT Care 06/11/19 13:40 Active Height and Weight [RC] UPON Care 06/11/19 13:40 Active Vital Signs [RC] Q15M Care 06/11/19 13:40 Active Cervical Spine wo Cont [CT] Stat Exams 06/11/19 13:54 Ordered Chest 1V Frontal [CR] Stat Exams 06/11/19 13:41 Ordered COMPREHENSIVE METABOLIC PN,CMP [CHEM] Stat Lab 06/11/19 13:45 Received TROPONIN I [CHEM] Stat Lab 06/11/19 13:45 Received TSH [CHEM] Stat Lab 06/11/19 13:45 Received UA RFX SUSAN AND CULT IF INDIC [URIN] Stat Lab 06/11/19 13:40 Ordered Sodium Chloride 0.9% [Normal Saline] Med 06/11/19 13:40 Active 10 ml IV ASDIRECTED PRN Sodium Chloride 0.9% [Saline Flush] Med 06/11/19 13:40 Active 10 ml FLUSH ASDIRECTED PRN Sodium Chloride 0.9% [Saline Flush] Med 06/11/19 13:40 Active 2.5 ml FLUSH ASDIRECTED PRN Peripheral IV Insertion Adult [OM.PC] Stat Oth 06/11/19 13:40 Ordered Medication Orders Sodium Chloride (Saline Flush) 10 ml FLUSH ASDIRECTED PRN PRN Reason: Keep Vein Open Sodium Chloride (Saline Flush) 2.5 ml FLUSH ASDIRECTED PRN PRN Reason: Keep Vein Open Sodium Chloride (Normal Saline) 10 ml IV ASDIRECTED PRN PRN Reason: IV Use Labs: Laboratory Tests 06/11/19 06/11/19 Range/Units 13:45 13:45 WBC 4.57 (4.0-11.0) K/uL RBC 5.34 (4.50-5.90) M/uL Hgb 17.1 H (13.0-17.0) g/dL Hct 47.7 (38.0-50.0) % MCV 89.3 (80.0-98.0) fL MCH 32.0 (27.0-32.0) pg MCHC 35.8 (31.0-37.0) g/dL RDW Std Deviation 42.1 (28.0-62.0) fl RDW Coeff of Charles 13 (11.0-15.0) % Plt Count 182 (150-400) K/uL MPV 10.50 (7.40-12.00) fL Neut % (Auto) 55.4 (48.0-80.0) % Lymph % (Auto) 34.1 (16.0-40.0) % [place] % (Auto) 8.3 (0.0-15.0) % Eos % (Auto) 1.8 (0.0-7.0) % Baso % (Auto) 0.4 (0.0-1.5) % Neut # (Auto) 2.5 (1.4-5.7) K/uL Lymph # (Auto) 1.6 (0.6-2.4) K/uL [place] # (Auto) 0.4 (0.0-0.8) K/uL Eos # (Auto) 0.1 (0.0-0.7) K/uL Baso # (Auto) 0.0 (0.0-0.1) K/uL Nucleated RBC % 0.0 /100WBC Nucleated RBCs # 0 K/uL INR 0.98 APTT 25.6 (18.6-31.3) SEC Meds: Medications Generic Name Dose Route Start Last Admin Trade Name Freq PRN Reason Stop Dose Admin Sodium Chloride 10 ml 06/11/19 13:40 Saline Flush FLUSH ASDIRECTED PRN Keep Vein Open Sodium Chloride 2.5 ml 06/11/19 13:40 Saline Flush FLUSH ASDIRECTED PRN Keep Vein Open Sodium Chloride 10 ml 06/11/19 13:40 Normal Saline IV ASDIRECTED PRN IV Use Departure - Departure Time of Disposition: 14:24 Disposition: Refer to Observation Condition: Fair Clinical Impression: Syncope and collapse, Post concussion syndrome Blunt head trauma Qualifiers: Encounter type: initial encounter Qualified Code(s): S09.8XXA - Other specified injuries of head, initial encounter - Discharge Information *PRESCRIPTION DRUG MONITORING PROGRAM REVIEWED*: Yes *COPY OF PRESCRIPTION DRUG MONITORING REPORT IN PATIENT CEZAR: Yes Referrals: Elder Diez MD [Primary Care Provider] - Sepsis Event Note - Evaluation Sepsis Screening Result: No Definite Risk - Focused Exam Vital Signs: Vital Signs Temp Pulse Resp BP Pulse Ox 06/11/19 13:34 95.6 F L 94 16 153/97 H 99 Date Exam was Performed: 06/11/19 Time Exam was Performed: 14:21 - My Orders Last 24 Hours: My Active Orders 06/11/19 13:54 Cervical Spine wo Cont [CT] Stat - Assessment/Plan Last 24 Hours: My Active Orders 06/11/19 13:54 Cervical Spine wo Cont [CT] Stat
--- NOTE | 2019-06-11 14:10 | CT ---
Head CT Technique: Multiple axial sections through the brain were obtained. Intravenous contrast was not utilized. Comparison: No prior intracranial imaging is available. Findings: Ventricles along with basal cisterns and sulci over the convexities are mildly prominent. No abnormal parenchymal densities are seen. No evidence of intracranial hemorrhage. No midline shift or mass effect is seen. Bone window settings were reviewed. Mild mucosal thickening seen within sphenoid and ethmoid sinuses. No acute paranasal sinus findings are seen. No acute mastoid sinus findings are seen. No acute calvarial abnormality is appreciated. Unfused posterior arch of C1 is seen which is felt to be a normal variant. Impression: 1. Findings believed to be incidental as noted above. 2. Nothing acute is appreciated on noncontrast head CT exam. Diagnostic code #2 Study was dictated in MDT
[2019-06-11 14:22] LABS: BLOOD UREA NITROGEN,BUN 22 mg/dL (7.0-18.0); CHLORIDE,CL 103 mmol/L (98-107); GLUCOSE RANDOM 187 mg/dL (74-106); POTASSIUM,K 3.9 mmol/L (3.5-5.1); SODIUM,NA 141 mmol/L (136-148)
--- NOTE | 2019-06-11 14:25 | CR ---
Chest: Frontal view of the chest was obtained. Comparison: No prior chest imaging is available. Heart size and mediastinum are normal. Disconnected epicardial wire is seen. Pacemaker is noted. Lungs are clear with no acute parenchymal change. Impression: 1. Nothing acute is appreciated on frontal chest x-ray. Diagnostic code #2 Study was dictated in MDT
--- NOTE | 2019-06-11 14:25 | CT ---
CT cervical spine Technique: Multiple axial sections were obtained from above C1 inferiorly to the lower T3 level. Reconstructed sagittal and coronal images were reviewed. Findings: Incomplete arch of C1 is again noted which is believed to represent a normal variant. Vertebral body heights are maintained. Minimal disc space narrowing at C3-C4 and C4-C5. Incomplete arch is also noted at T2 which appears old and felt to be developmental and therefore incidental. No acute fracture is appreciated. No bony central or bony neural foraminal stenosis is seen. Minimal kyphosis is seen. No abnormal subluxation is appreciated. Impression: 1. Slight degenerative change. Other findings believed to be incidental. 2. Nothing acute is appreciated on CT study of the cervical spine. Diagnostic code #2 Study was dictated in MDT
[2019-06-11] MEDS ORDERED: Ondansetron 4 MG/2 ML SDV IVPUSH PRN (15:02)
[2019-06-11] MEDS ORDERED: Ondansetron 4 MG Tab.DIS PO PRN (15:02)
[2019-06-11] MEDS ORDERED: Acetaminophen 325 MG Tab PO PRN (15:02)
--- NOTE | 2019-06-11 15:16 | PCM.HP.2 ---
H&P History of Present Illness - General Date of Service: 06/11/19 Admit Problem/Dx: Admission Diagnosis/Problem Admission Diagnosis/Problem Syncope and collapse Source of Information: Patient History Limitations: Reports: No Limitations - History of Present Illness Initial Comments - Free Text/Narative: 53-year-old male presents after hitting his head and losing consciousness 2 days ago. He has a PMH of CHF s/p AICD and pacemaker, DM type 1, NM s/p cardiac stent, HTN, hyperlipidemia, anxiety and depression. Patient reports that he stood up in his kitchen and the next thing he remembers is hitting his head on his refrigerator and then waking up on the floor. He is unsure how long he was down on the ground for. He denied any bowel or bladder incontinence. Since then he has had a pressure sensation at the back of his head, nausea ringing in his ears and nausea. He has also had diarrhea and decreased appetite for the past few days. He denies having any fevers, chills, sore throat, cough, blurry vision , SOB, chest pain, vomiting, abdominal pain, blood in stool, blood in urine, numbness or tingling in extremities. In the ER, CBC and CMP unremarkable. CXR, CT head and CT c-spine were unremarkable. Troponin was negative and TSH normal. Patient admitted for further evaluation and treatment. head pain Pain Score (Numeric/FACES): 8 - Related Data Allergies/Adverse Reactions: Allergies Allergy/AdvReac Type Severity Reaction Status Date / Time No Known Allergies Allergy Verified 06/11/19 13:37 Home Medications: Home Meds Isosorbide Mononitrate [Imdur] 30 mg PO DAILY 12/17/16 [History] DULoxetine [Cymbalta] 30 mg PO DAILY 12/23/16 [History] Insulin Aspart [NovoLOG] See Protocol SUBCUT TIDMEALS #0 12/25/16 [Rx] Clopidogrel [Plavix] 75 mg PO DAILY 01/05/19 [History] Metoprolol Tartrate 25 mg PO BID 01/05/19 [History] Topiramate 25 mg PO DAILY 01/05/19 [History] atorvaSTATin [Lipitor] 10 mg PO DAILY 01/05/19 [History] Insulin Detemir [Levemir Flextouch] 10 unit SQ BID 06/11/19 [History] Insulin Lispro [Humalog] 0 unit SQ ONETIME 06/11/19 [History] Losartan [Cozaar] 50 mg PO DAILY 06/11/19 [History] Nitroglycerin [Nitrostat] 0.4 mg SL .Q5MIN PRN MDD 3 06/11/19 [History] Past Medical History - Past Health History Medical/Surgical History: Denies Medical/Surgical History HEENT History: Reports: None Cardiovascular History: Reports: CAD, Heart Failure, High Cholesterol, Hypertension, NM, Pacemaker Other Cardiovascular History: Valve Problem Respiratory History: Reports: Other (See Below) Other Respiratory History: recently diagnosed with nodules in lungs Gastrointestinal History: Reports: None Genitourinary History: Reports: Chronic Renal Insuffiency Musculoskeletal History: Reports: Back Pain, Chronic Neurological History: Reports: Neuropathy, Diabetic, Other (See Below) Other Neuro History: Intracranial hypertension Psychiatric History: Reports: Anxiety, Depression Endocrine/Metabolic History: Reports: Diabetes, Type I Hematologic History: Reports: None Immunologic History: Reports: None Oncologic (Cancer) History: Reports: None Dermatologic History: Reports: None - Infectious Disease History Infectious Disease History: Reports: Influenza - Past Surgical History Head Surgeries/Procedures: Reports: None HEENT Surgical History: Reports: Oral Surgery Cardiovascular Surgical History: Reports: AICD, Coronary Artery Stent, Other ( See Below) Respiratory Surgical History: Reports: None GI Surgical History: Reports: Cholecystectomy Male Surgical History: Reports: None Endocrine Surgical History: Reports: None Neurological Surgical History: Reports: None Musculoskeletal Surgical History: Reports: None Oncologic Surgical History: Reports: None Dermatological Surgical History: Reports: None Social & Family History - Family History Family Medical History: Noncontributory - Tobacco Use Smoking Status *Q: Unknown Ever Smoked - Caffeine Use Caffeine Use: Reports: None - Living Situation & Occupation Living situation: Reports: , with Spouse, with Family (2 kids) Occupation: Unemployed H&P Review of Systems - Review of Systems: Review Of Systems: Comprehensive ROS is negative, except as noted in HPI. Exam - Exam Exam: See Below - Vital Signs Vital Signs: Last Vital Signs Temp 95.6 F L 06/11/19 13:34 Pulse 98 06/11/19 14:26 Resp 16 06/11/19 14:26 BP 134/88 06/11/19 14:26 Pulse Ox 99 06/11/19 13:34 Weight: 180 lb - Exam General: Alert, Oriented, Cooperative, Mild Distress HEENT: Conjunctiva Clear, EOMI, Hearing Intact, Posterior Pharynx Clear, Pupils Equal, Pupils Reactive Neck: Supple, Trachea Midline Lungs: Clear to Auscultation, Normal Respiratory Effort Cardiovascular: Regular Rate, Regular Rhythm GI/Abdominal Exam: Normal Bowel Sounds, Soft, Non-Tender, No Distention Extremities: Normal Inspection, No Pedal Edema Peripheral Pulses: 2+: Radial (L), Radial (R) Skin: Warm, Dry, Intact Neurological: Cranial Nerves Intact, Strength Equal Bilateral, Normal Speech, Normal Tone Neuro Extensive - Mental Status: Alert, Oriented x3, Normal Mood/Affect Psychiatric: Alert, Normal Affect, Normal Mood - Patient Data Lab Results Last 24 hrs: Laboratory Results - last 24 hr 06/11/19 06/11/19 06/11/19 Range/Units 13:45 13:45 13:45 WBC 4.57 (4.0-11.0) K/uL RBC 5.34 (4.50-5.90) M/uL Hgb 17.1 H (13.0-17.0) g/dL Hct 47.7 (38.0-50.0) % MCV 89.3 (80.0-98.0) fL MCH 32.0 (27.0-32.0) pg MCHC 35.8 (31.0-37.0) g/dL RDW Std Deviation 42.1 (28.0-62.0) fl RDW Coeff of Charles 13 (11.0-15.0) % Plt Count 182 (150-400) K/uL MPV 10.50 (7.40-12.00) fL Neut % (Auto) 55.4 (48.0-80.0) % Lymph % (Auto) 34.1 (16.0-40.0) % [place] % (Auto) 8.3 (0.0-15.0) % Eos % (Auto) 1.8 (0.0-7.0) % Baso % (Auto) 0.4 (0.0-1.5) % Neut # (Auto) 2.5 (1.4-5.7) K/uL Lymph # (Auto) 1.6 (0.6-2.4) K/uL [place] # (Auto) 0.4 (0.0-0.8) K/uL Eos # (Auto) 0.1 (0.0-0.7) K/uL Baso # (Auto) 0.0 (0.0-0.1) K/uL Nucleated RBC % 0.0 /100WBC Nucleated RBCs # 0 K/uL INR 0.98 APTT 25.6 (18.6-31.3) SEC Sodium 141 (136-148) mmol/L Potassium 3.9 (3.5-5.1) mmol/L Chloride 103 (98-107) mmol/L Carbon Dioxide 23.0 (21.0-32.0) mmol/L BUN 22 H (7.0-18.0) mg/dL Creatinine 1.0 (0.8-1.3) mg/dL Est Cr Clr Drug Dosing 97.52 mL/min Estimated GFR (MDRD) > 60.0 ml/min Glucose 187 H (74-106) mg/dL Calcium 9.3 (8.5-10.1) mg/dL Total Bilirubin 1.4 H (0.2-1.0) mg/dL AST 37 (15-37) IU/L ALT 84 H (14-63) IU/L Alkaline Phosphatase 83 (46-116) U/L Troponin I < 0.050 (0.000-0.056) ng/mL Total Protein 8.2 (6.4-8.2) g/dL Albumin 4.9 (3.4-5.0) g/dL Globulin 3.3 (2.6-4.0) g/dL Albumin/Globulin Ratio 1.5 (0.9-1.6) TSH 3rd Generation 3.10 (0.36-3.74) uIU/mL Result Diagrams: 06/11/19 13:45 06/11/19 13:45 Sepsis Event Note - Evaluation Sepsis Screening Result: No Definite Risk - Focused Exam Vital Signs: Vital Signs Temp Pulse Resp BP Pulse Ox 06/11/19 14:26 98 16 134/88 06/11/19 13:34 95.6 F L 94 16 153/97 H 99 Date Exam was Performed: 06/11/19 Time Exam was Performed: 15:59 Problem List Initiated/Reviewed/Updated: Yes Orders Last 24hrs: Active Orders 24 hr Category Date Time Status Admission Status [Patient Status] [ADT] Stat ADT 06/11/19 14:26 Active Accu Check [Blood Glucose Check, Bedside] [RC] TIDAC Care 06/11/19 15:04 Ordered Antiembolic Devices [RC] PER UNIT ROUTINE Care 06/11/19 15:03 Ordered Bedrest [RC] ASDIRECTED Care 06/11/19 13:40 Active Cardiac Monitoring [RC] . DIRECTED Care 06/11/19 13:40 Active EKG Documentation Completion [RC] STAT Care 06/11/19 13:40 Active Height and Weight [RC] UPON Care 06/11/19 13:40 Active Oxygen Therapy [RC] PRN Care 06/11/19 15:02 Ordered Telemetry Monitoring [Cardiac Monitoring] [RC] . Care 06/11/19 15:06 Ordered DIRECTED Up With Assistance [RC] ASDIRECTED Care 06/11/19 15:02 Ordered VTE/DVT Education [RC] PER UNIT ROUTINE Care 06/11/19 15:02 Ordered Vital Signs [RC] Q15M Care 06/11/19 13:40 Active Vital Signs [RC] Q4H Care 06/11/19 15:02 Ordered PT Evaluation and Treatment [CONS] Routine Cons 06/11/19 15:02 Ordered [place] [employer] Diet [DIET] Diet 06/11/19 Breakfast Ordered CBC WITH AUTO DIFF [HEME] AM Lab 06/12/19 05:11 Ordered COMPREHENSIVE METABOLIC PN,CMP [CHEM] AM Lab 06/12/19 05:11 Ordered UA RFX SUSAN AND CULT IF INDIC [URIN] Stat Lab 06/11/19 13:40 Ordered Acetaminophen [Tylenol] Med 06/11/19 15:02 Ordered 650 mg PO Q4H PRN Insulin Aspart [NovoLOG] Med 06/11/19 17:00 Ordered See Protocol SUBCUT TIDAC Ondansetron [Zofran ODT] Med 06/11/19 15:02 Ordered 4 mg PO Q4H PRN Ondansetron [Zofran] Med 06/11/19 15:02 Ordered 4 mg IVPUSH Q4H PRN Sodium Chloride 0.9% [Normal Saline] Med 06/11/19 13:40 Active 10 ml IV ASDIRECTED PRN Sodium Chloride 0.9% [Saline Flush] Med 06/11/19 13:40 Active 10 ml FLUSH ASDIRECTED PRN Sodium Chloride 0.9% [Saline Flush] Med 06/11/19 13:40 Active 2.5 ml FLUSH ASDIRECTED PRN Peripheral IV Insertion Adult [OM.PC] Stat Oth 06/11/19 13:40 Ordered Sequential Compression Device [OM.PC] Per Unit Routine Oth 06/11/19 15:02 Ordered Resuscitation Status Routine Resus Stat 06/11/19 15:02 Ordered Medication Orders Acetaminophen (Tylenol) 650 mg PO Q4H PRN PRN Reason: Pain (Mild 1-3)/fever Insulin Aspart (Novolog) 0 unit SUBCUT TIDAC [place]; Protocol Ondansetron HCl (Zofran Odt) 4 mg PO Q4H PRN PRN Reason: nausea, able to take PO Ondansetron HCl (Zofran) 4 mg IVPUSH Q4H PRN PRN Reason: Nausea Sodium Chloride (Saline Flush) 10 ml FLUSH ASDIRECTED PRN PRN Reason: Keep Vein Open Sodium Chloride (Saline Flush) 2.5 ml FLUSH ASDIRECTED PRN PRN Reason: Keep Vein Open Sodium Chloride (Normal Saline) 10 ml IV ASDIRECTED PRN PRN Reason: IV Use Assessment/Plan Comment:: Assessment and Plan: 1. Syncopal episode: - Admit to med/surg. CBC and CMP unremarkable. CT head was negative. Keep patient on telemetry. Will give IV NS 500 cc total @ 75 cc/hr. Will order ECHO. EKG on admission showed ventricular-paced rhythm at 90 bpm. Will contact cardiology for recommendations and possible pacemaker interrogation. 2. Concussion secondary to #1: - CT head and CT c-spine were negative. Will encourage cognitive rest. 3. Diabetes mellitus type 1: - ADA diet, SSI, resume home dose of long-acting insulin. 4. Past medical history of CHF s/p AICD and defibrillator, NM s/p stent, HTN, hyperlipidemia, anxiety and depression: - Will resume home medications. 5. DVT prophylaxis: SCD's.
[2019-06-11] MEDS ORDERED: Sodium Chloride 0.9% 500 ML IV ONE (15:29)
[2019-06-11] MEDS: Insulin Aspart 100 Units/ML 3 ML Pen SUBCUT SCH (17:24)
[2019-06-11] MEDS ORDERED: Nitroglycerin 0.4 MG Tab.SL SL PRN (18:29)
[2019-06-11] MEDS ORDERED: Insulin Glargine,Human Rec. Analog 100 Units/ML 3 ML Pen SUBCUT SCH (21:00)
[2019-06-11] MEDS: Metoprolol Tartrate 25 MG Tab PO SCH (21:43)
[2019-06-11] MEDS: Topiramate 50 MG Tab PO SCH (21:43)
[2019-06-12 07:11] LABS: BLOOD UREA NITROGEN,BUN 14 mg/dL (7.0-18.0); CARBON DIOXIDE,CO2 24.8 mmol/L (21.0-32.0); CHLORIDE,CL 108 mmol/L (98-107); GLUCOSE RANDOM 53 mg/dL (74-106); POTASSIUM,K 3.1 mmol/L (3.5-5.1); SODIUM,NA 145 mmol/L (136-148)
[2019-06-12] MEDS ORDERED: Potassium Chloride 20 MEQ Tab.ER PO ONE (07:31)
[2019-06-12] MEDS: Insulin Aspart 100 Units/ML 3 ML Pen SUBCUT SCH ×2 (08:06→13:27)
[2019-06-12] MEDS: Metoprolol Tartrate 25 MG Tab PO SCH (08:21)
[2019-06-12 08:24] VITALS: BP 141/95; PULSE 86
[2019-06-12] MEDS: Topiramate 50 MG Tab PO SCH (08:29)
[2019-06-12] MEDS ORDERED: atorvaSTATin 10 MG Tab PO SCH (09:00)
[2019-06-12] MEDS ORDERED: Clopidogrel 75 MG Tab PO SCH (09:00)
[2019-06-12] MEDS ORDERED: DULoxetine 30 MG Cap PO SCH (09:00)
[2019-06-12] MEDS ORDERED: Losartan 50 MG Tab PO SCH (09:00)
[2019-06-12] MEDS ORDERED: Isosorbide Mononitrate 30 MG Tab.ER PO SCH (09:00)
--- NOTE | 2019-06-12 11:11 | PCM.DCSUM1 ---
<Norberto Ritchie M - Last Filed: 06/12/19 13:03> Discharge Summary - Hospital Course Free Text/Narrative:: 53-year-old male admitted for syncopal episode. He has a PMH of DM type 1, CHF s /p AICD/defibrillator, CO s/p stent, HTN, hyperlipidemia, anxiety and depression. Patient reported having a syncopal event 2 days prior to presenting to hospital. On admission, CBC, CMP, CT head and CT c-spine were unremarkable. EKG showed ventricular-paced rhythm at 90 bpm. ECHO was ordered which is currently pending. Patient remained hemodynamically stable during his hospitalization and had no recurrence of syncope or pre-syncope. On day of discharge patient reported feeling much better. 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 - Discharge Data Discharge Date: 06/12/19 Discharge Disposition: Home, Self-Care 01 Condition: Stable - Referral to Home Health Primary Care Physician: Elder Diez MD - Patient Instructions Diet: Heart Healthy Diet, Diabetic Diet Activity: As Tolerated Notify Provider of: Fever, Increased Pain, Swelling and Redness, Drainage, Nausea and/or Vomiting - Discharge Plan *PRESCRIPTION DRUG MONITORING PROGRAM REVIEWED*: Not Applicable *COPY OF PRESCRIPTION DRUG MONITORING REPORT IN PATIENT CEZAR: Not Applicable Home Medications: Home Meds Isosorbide Mononitrate [Imdur] 30 mg PO DAILY 12/17/16 [History] DULoxetine [Cymbalta] 30 mg PO DAILY 12/23/16 [History] Insulin Aspart [NovoLOG] See Protocol SUBCUT TIDMEALS #0 12/25/16 [Rx] Clopidogrel [Plavix] 75 mg PO DAILY 01/05/19 [History] Metoprolol Tartrate 25 mg PO BID 01/05/19 [History] Topiramate 25 mg PO BID 01/05/19 [History] atorvaSTATin [Lipitor] 10 mg PO DAILY 01/05/19 [History] Insulin Glarg,Human.Rec.Analog [Lantus] 25 units SUBCUT BEDTIME 06/11/19 [ History] Insulin Lispro [Humalog Kwikpen U-100] 0 unit SQ ONETIME 06/11/19 [History] Losartan [Cozaar] 50 mg PO DAILY 06/11/19 [History] Nitroglycerin [Nitrostat] 0.4 mg SL .Q5MIN PRN MDD 3 06/11/19 [History] Oxygen Therapy Mode: Room Air Patient Handouts: Syncope, [id number] Referrals: Alan Guthrie MD [Physician] - (You need to call on Friday to make an appointment with his soonest available spot. Ensure to tell the ornamental painter that you were hospitalized. ) Elder Diez MD [Primary Care Provider] - (You need to call on Friday to make an appointment for a 1 week follow up. Ensure to tell the ornamental painter that it would be a hospital follow-up. ) - Discharge Summary/Plan Comment DC Time >30 min.: No - Patient Data Vitals - Most Recent: Last Vital Signs Temp 97.7 F 06/12/19 07:22 Pulse 86 06/12/19 08:21 Resp 18 06/12/19 07:22 BP 141/95 H 06/12/19 08:22 Pulse Ox 99 06/12/19 07:22 Weight - Most Recent: 85.6 kg I&O - Last 24 hours: Intake & Output 06/11/19 06/12/19 06/12/19 22:59 06:59 14:59 Intake Total 1825 Output Total 1325 Balance 500 Lab Results - Last 24 hrs: Laboratory Results - last 24 hr 06/11/19 06/11/19 06/11/19 Range/Units 13:45 13:45 13:45 WBC 4.57 (4.0-11.0) K/uL RBC 5.34 (4.50-5.90) M/uL Hgb 17.1 H (13.0-17.0) g/dL Hct 47.7 (38.0-50.0) % MCV 89.3 (80.0-98.0) fL MCH 32.0 (27.0-32.0) pg MCHC 35.8 (31.0-37.0) g/dL RDW Std Deviation 42.1 (28.0-62.0) fl RDW Coeff of Charles 13 (11.0-15.0) % Plt Count 182 (150-400) K/uL MPV 10.50 (7.40-12.00) fL Neut % (Auto) 55.4 (48.0-80.0) % Lymph % (Auto) 34.1 (16.0-40.0) % Cocke % (Auto) 8.3 (0.0-15.0) % Eos % (Auto) 1.8 (0.0-7.0) % Baso % (Auto) 0.4 (0.0-1.5) % Neut # (Auto) 2.5 (1.4-5.7) K/uL Lymph # (Auto) 1.6 (0.6-2.4) K/uL Cocke # (Auto) 0.4 (0.0-0.8) K/uL Eos # (Auto) 0.1 (0.0-0.7) K/uL Baso # (Auto) 0.0 (0.0-0.1) K/uL Nucleated RBC % 0.0 /100WBC Nucleated RBCs # 0 K/uL INR 0.98 APTT 25.6 (18.6-31.3) SEC Sodium 141 (136-148) mmol/L Potassium 3.9 (3.5-5.1) mmol/L Chloride 103 (98-107) mmol/L Carbon Dioxide 23.0 (21.0-32.0) mmol/L BUN 22 H (7.0-18.0) mg/dL Creatinine 1.0 (0.8-1.3) mg/dL Est Cr Clr Drug Dosing 97.52 mL/min Estimated GFR (MDRD) > 60.0 ml/min Glucose 187 H (74-106) mg/dL POC Glucose (60-110) mg/dL Calcium 9.3 (8.5-10.1) mg/dL Total Bilirubin 1.4 H (0.2-1.0) mg/dL AST 37 (15-37) IU/L ALT 84 H (14-63) IU/L Alkaline Phosphatase 83 (46-116) U/L Troponin I < 0.050 (0.000-0.056) ng/mL Total Protein 8.2 (6.4-8.2) g/dL Albumin 4.9 (3.4-5.0) g/dL Globulin 3.3 (2.6-4.0) g/dL Albumin/Globulin Ratio 1.5 (0.9-1.6) TSH 3rd Generation 3.10 (0.36-3.74) uIU/mL Urine Color Urine Appearance Urine pH (5.0-8.0) Ur Specific [place] (1.001-1.035) Urine Protein (NEGATIVE) mg/dL Urine Glucose (UA) (NEGATIVE) mg/dL Urine Ketones (NEGATIVE) mg/dL Urine Occult Blood (NEGATIVE) Urine Nitrite (NEGATIVE) Urine Bilirubin (NEGATIVE) Urine Urobilinogen (<2.0) EU/dL Ur Leukocyte Esterase (NEGATIVE) Urine RBC (0-2/HPF) Urine WBC (0-5/HPF) Ur Epithelial Cells (NONE-FEW) Urine Bacteria (NEGATIVE) 06/11/19 06/11/19 06/11/19 Range/Units 15:45 16:59 21:33 WBC (4.0-11.0) K/uL RBC (4.50-5.90) M/uL Hgb (13.0-17.0) g/dL Hct (38.0-50.0) % MCV (80.0-98.0) fL MCH (27.0-32.0) pg MCHC (31.0-37.0) g/dL RDW Std Deviation (28.0-62.0) fl RDW Coeff of Charles (11.0-15.0) % Plt Count (150-400) K/uL MPV (7.40-12.00) fL Neut % (Auto) (48.0-80.0) % Lymph % (Auto) (16.0-40.0) % Cocke % (Auto) (0.0-15.0) % Eos % (Auto) (0.0-7.0) % Baso % (Auto) (0.0-1.5) % Neut # (Auto) (1.4-5.7) K/uL Lymph # (Auto) (0.6-2.4) K/uL Cocke # (Auto) (0.0-0.8) K/uL Eos # (Auto) (0.0-0.7) K/uL Baso # (Auto) (0.0-0.1) K/uL Nucleated RBC % /100WBC Nucleated RBCs # K/uL INR APTT (18.6-31.3) SEC Sodium (136-148) mmol/L Potassium (3.5-5.1) mmol/L Chloride (98-107) mmol/L Carbon Dioxide (21.0-32.0) mmol/L BUN (7.0-18.0) mg/dL Creatinine (0.8-1.3) mg/dL Est Cr Clr Drug Dosing mL/min Estimated GFR (MDRD) ml/min Glucose (74-106) mg/dL POC Glucose 117 H 99 (60-110) mg/dL Calcium (8.5-10.1) mg/dL Total Bilirubin (0.2-1.0) mg/dL AST (15-37) IU/L ALT (14-63) IU/L Alkaline Phosphatase (46-116) U/L Troponin I (0.000-0.056) ng/mL Total Protein (6.4-8.2) g/dL Albumin (3.4-5.0) g/dL Globulin (2.6-4.0) g/dL Albumin/Globulin Ratio (0.9-1.6) TSH 3rd Generation (0.36-3.74) uIU/mL Urine Color YELLOW Urine Appearance HAZY Urine pH 6.0 (5.0-8.0) Ur Specific [place] 1.025 (1.001-1.035) Urine Protein NEGATIVE (NEGATIVE) mg/dL Urine Glucose (UA) 100 H (NEGATIVE) mg/dL Urine Ketones NEGATIVE (NEGATIVE) mg/dL Urine Occult Blood TRACE-INTACT H (NEGATIVE) Urine Nitrite NEGATIVE (NEGATIVE) Urine Bilirubin NEGATIVE (NEGATIVE) Urine Urobilinogen 0.2 (<2.0) EU/dL Ur Leukocyte Esterase NEGATIVE (NEGATIVE) Urine RBC 0-4 (0-2/HPF) Urine WBC 0-3 (0-5/HPF) Ur Epithelial Cells RARE (NONE-FEW) Urine Bacteria RARE (NEGATIVE) 06/12/19 06/12/19 06/12/19 Range/Units 06:20 06:20 06:35 WBC 5.16 (4.0-11.0) K/uL RBC 4.92 (4.50-5.90) M/uL Hgb 15.7 (13.0-17.0) g/dL Hct 44.0 (38.0-50.0) % MCV 89.4 (80.0-98.0) fL MCH 31.9 (27.0-32.0) pg MCHC 35.7 (31.0-37.0) g/dL RDW Std Deviation 42.3 (28.0-62.0) fl RDW Coeff of Charles 13 (11.0-15.0) % Plt Count 193 (150-400) K/uL MPV 10.40 (7.40-12.00) fL Neut % (Auto) 56.7 (48.0-80.0) % Lymph % (Auto) 31.8 (16.0-40.0) % Cocke % (Auto) 9.9 (0.0-15.0) % Eos % (Auto) 1.4 (0.0-7.0) % Baso % (Auto) 0.2 (0.0-1.5) % Neut # (Auto) 2.9 (1.4-5.7) K/uL Lymph # (Auto) 1.6 (0.6-2.4) K/uL Cocke # (Auto) 0.5 (0.0-0.8) K/uL Eos # (Auto) 0.1 (0.0-0.7) K/uL Baso # (Auto) 0.0 (0.0-0.1) K/uL Nucleated RBC % 0.0 /100WBC Nucleated RBCs # 0 K/uL INR APTT (18.6-31.3) SEC Sodium 145 (136-148) mmol/L Potassium 3.1 L (3.5-5.1) mmol/L Chloride 108 H (98-107) mmol/L Carbon Dioxide 24.8 (21.0-32.0) mmol/L BUN 14 (7.0-18.0) mg/dL Creatinine 0.7 L (0.8-1.3) mg/dL Est Cr Clr Drug Dosing 140.26 mL/min Estimated GFR (MDRD) > 60.0 ml/min Glucose 53 L (74-106) mg/dL POC Glucose 58 L (60-110) mg/dL Calcium 8.9 (8.5-10.1) mg/dL Total Bilirubin 1.2 H (0.2-1.0) mg/dL AST 29 (15-37) IU/L ALT 69 H (14-63) IU/L Alkaline Phosphatase 69 (46-116) U/L Troponin I (0.000-0.056) ng/mL Total Protein 6.9 (6.4-8.2) g/dL Albumin 4.2 (3.4-5.0) g/dL Globulin 2.7 (2.6-4.0) g/dL Albumin/Globulin Ratio 1.6 (0.9-1.6) TSH 3rd Generation (0.36-3.74) uIU/mL Urine Color Urine Appearance Urine pH (5.0-8.0) Ur Specific [place] (1.001-1.035) Urine Protein (NEGATIVE) mg/dL Urine Glucose (UA) (NEGATIVE) mg/dL Urine Ketones (NEGATIVE) mg/dL Urine Occult Blood (NEGATIVE) Urine Nitrite (NEGATIVE) Urine Bilirubin (NEGATIVE) Urine Urobilinogen (<2.0) EU/dL Ur Leukocyte Esterase (NEGATIVE) Urine RBC (0-2/HPF) Urine WBC (0-5/HPF) Ur Epithelial Cells (NONE-FEW) Urine Bacteria (NEGATIVE) 06/12/19 Range/Units 08:25 WBC (4.0-11.0) K/uL RBC (4.50-5.90) M/uL Hgb (13.0-17.0) g/dL Hct (38.0-50.0) % MCV (80.0-98.0) fL MCH (27.0-32.0) pg MCHC (31.0-37.0) g/dL RDW Std Deviation (28.0-62.0) fl RDW Coeff of Charles (11.0-15.0) % Plt Count (150-400) K/uL MPV (7.40-12.00) fL Neut % (Auto) (48.0-80.0) % Lymph % (Auto) (16.0-40.0) % Cocke % (Auto) (0.0-15.0) % Eos % (Auto) (0.0-7.0) % Baso % (Auto) (0.0-1.5) % Neut # (Auto) (1.4-5.7) K/uL Lymph # (Auto) (0.6-2.4) K/uL Cocke # (Auto) (0.0-0.8) K/uL Eos # (Auto) (0.0-0.7) K/uL Baso # (Auto) (0.0-0.1) K/uL Nucleated RBC % /100WBC Nucleated RBCs # K/uL INR APTT (18.6-31.3) SEC Sodium (136-148) mmol/L Potassium (3.5-5.1) mmol/L Chloride (98-107) mmol/L Carbon Dioxide (21.0-32.0) mmol/L BUN (7.0-18.0) mg/dL Creatinine (0.8-1.3) mg/dL Est Cr Clr Drug Dosing mL/min Estimated GFR (MDRD) ml/min Glucose (74-106) mg/dL POC Glucose 115 H (60-110) mg/dL Calcium (8.5-10.1) mg/dL Total Bilirubin (0.2-1.0) mg/dL AST (15-37) IU/L ALT (14-63) IU/L Alkaline Phosphatase (46-116) U/L Troponin I (0.000-0.056) ng/mL Total Protein (6.4-8.2) g/dL Albumin (3.4-5.0) g/dL Globulin (2.6-4.0) g/dL Albumin/Globulin Ratio (0.9-1.6) TSH 3rd Generation (0.36-3.74) uIU/mL Urine Color Urine Appearance Urine pH (5.0-8.0) Ur Specific [place] (1.001-1.035) Urine Protein (NEGATIVE) mg/dL Urine Glucose (UA) (NEGATIVE) mg/dL Urine Ketones (NEGATIVE) mg/dL Urine Occult Blood (NEGATIVE) Urine Nitrite (NEGATIVE) Urine Bilirubin (NEGATIVE) Urine Urobilinogen (<2.0) EU/dL Ur Leukocyte Esterase (NEGATIVE) Urine RBC (0-2/HPF) Urine WBC (0-5/HPF) Ur Epithelial Cells (NONE-FEW) Urine Bacteria (NEGATIVE) Med Orders - Current: Current Medications Acetaminophen (Tylenol) 650 mg PO Q4H PRN PRN Reason: Pain (Mild 1-3)/fever Atorvastatin Calcium (Lipitor) 10 mg PO DAILY [facility] Last Admin: 06/12/19 08:22 Dose: 10 mg Clopidogrel Bisulfate (Plavix) 75 mg PO DAILY [facility] Last Admin: 06/12/19 08:23 Dose: 75 mg Duloxetine HCl (Cymbalta) 30 mg PO DAILY [facility] Last Admin: 06/12/19 08:30 Dose: 30 mg Insulin Aspart (Novolog) 0 unit SUBCUT TIDAC [facility]; Protocol Last Admin: 06/12/19 08:06 Dose: Not Given Insulin Glargine (Lantus Solostar) 25 units SUBCUT BEDTIME [facility] Last Admin: 06/11/19 21:41 Dose: 25 units Isosorbide Mononitrate (Imdur) 30 mg PO DAILY [facility] [place] Last Admin: 06/12/19 08:22 Dose: 30 mg Losartan Potassium (Cozaar) 50 mg PO DAILY [facility] [place] Last Admin: 06/12/19 08:22 Dose: 50 mg Metoprolol Tartrate (Lopressor) 25 mg PO BID [facility] [place] Last Admin: 06/12/19 08:21 Dose: 25 mg Nitroglycerin (Nitrostat) 0.4 mg SL .Q5MIN PRN PRN Reason: Chest Pain Ondansetron HCl (Zofran Odt) 4 mg PO Q4H PRN PRN Reason: nausea, able to take PO Ondansetron HCl (Zofran) 4 mg IVPUSH Q4H PRN PRN Reason: Nausea Sodium Chloride (Saline Flush) 10 ml FLUSH ASDIRECTED PRN PRN Reason: Keep Vein Open Sodium Chloride (Saline Flush) 2.5 ml FLUSH ASDIRECTED PRN PRN Reason: Keep Vein Open Sodium Chloride (Normal Saline) 10 ml IV ASDIRECTED PRN PRN Reason: IV Use Topiramate (Topamax) 25 mg PO BID [facility] Last Admin: 06/12/19 08:29 Dose: 25 mg Discontinued Medications Sodium Chloride (Normal Saline) 500 mls @ 75 mls/hr IV STAT ONE Stop: 06/11/19 22:08 Last Admin: 06/11/19 16:39 Dose: 75 mls/hr Potassium Chloride (Klor-Con M20) 40 meq PO ONETIME ONE Stop: 06/12/19 07:32 Last Admin: 06/12/19 08:21 Dose: 40 meq <Jovany Spaulding J - Last Filed: 06/12/19 20:12> Discharge Summary - Referral to Home Health Primary Care Physician: Elder Diez MD - Patient Data Vitals - Most Recent: Last Vital Signs Temp 36.5 C 06/12/19 07:22 Pulse 86 06/12/19 08:21 Resp 18 06/12/19 07:22 BP 141/95 H 06/12/19 08:22 Pulse Ox 99 06/12/19 07:22 I&O - Last 24 hours: Intake & Output 06/12/19 06/12/19 06/12/19 06:59 14:59 22:59 Intake Total 1825 820 Output Total 1325 530 Balance 500 290 Lab Results - Last 24 hrs: Laboratory Results - last 24 hr 06/11/19 06/12/19 06/12/19 Range/Units 21:33 06:20 06:20 WBC 5.16 (4.0-11.0) K/uL RBC 4.92 (4.50-5.90) M/uL Hgb 15.7 (13.0-17.0) g/dL Hct 44.0 (38.0-50.0) % MCV 89.4 (80.0-98.0) fL MCH 31.9 (27.0-32.0) pg MCHC 35.7 (31.0-37.0) g/dL RDW Std Deviation 42.3 (28.0-62.0) fl RDW Coeff of Charles 13 (11.0-15.0) % Plt Count 193 (150-400) K/uL MPV 10.40 (7.40-12.00) fL Neut % (Auto) 56.7 (48.0-80.0) % Lymph % (Auto) 31.8 (16.0-40.0) % Cocke % (Auto) 9.9 (0.0-15.0) % Eos % (Auto) 1.4 (0.0-7.0) % Baso % (Auto) 0.2 (0.0-1.5) % Neut # (Auto) 2.9 (1.4-5.7) K/uL Lymph # (Auto) 1.6 (0.6-2.4) K/uL [place]ke # (Auto) 0.5 (0.0-0.8) K/uL Eos # (Auto) 0.1 (0.0-0.7) K/uL Baso # (Auto) 0.0 (0.0-0.1) K/uL Nucleated RBC % 0.0 /100WBC Nucleated RBCs # 0 K/uL Sodium 145 (136-148) mmol/L Potassium 3.1 L (3.5-5.1) mmol/L Chloride 108 H (98-107) mmol/L Carbon Dioxide 24.8 (21.0-32.0) mmol/L BUN 14 (7.0-18.0) mg/dL Creatinine 0.7 L (0.8-1.3) mg/dL Est Cr Clr Drug Dosing 140.26 mL/min Estimated GFR (MDRD) > 60.0 ml/min Glucose 53 L (74-106) mg/dL POC Glucose 99 (60-110) mg/dL Calcium 8.9 (8.5-10.1) mg/dL Total Bilirubin 1.2 H (0.2-1.0) mg/dL AST 29 (15-37) IU/L ALT 69 H (14-63) IU/L Alkaline Phosphatase 69 (46-116) U/L Total Protein 6.9 (6.4-8.2) g/dL Albumin 4.2 (3.4-5.0) g/dL Globulin 2.7 (2.6-4.0) g/dL Albumin/Globulin Ratio 1.6 (0.9-1.6) 06/12/19 06/12/19 Range/Units 06:35 08:25 WBC (4.0-11.0) K/uL RBC (4.50-5.90) M/uL Hgb (13.0-17.0) g/dL Hct (38.0-50.0) % MCV (80.0-98.0) fL MCH (27.0-32.0) pg MCHC (31.0-37.0) g/dL RDW Std Deviation (28.0-62.0) fl RDW Coeff of Charles (11.0-15.0) % Plt Count (150-400) K/uL MPV (7.40-12.00) fL Neut % (Auto) (48.0-80.0) % Lymph % (Auto) (16.0-40.0) % Cocke % (Auto) (0.0-15.0) % Eos % (Auto) (0.0-7.0) % Baso % (Auto) (0.0-1.5) % Neut # (Auto) (1.4-5.7) K/uL Lymph # (Auto) (0.6-2.4) K/uL Cocke # (Auto) (0.0-0.8) K/uL Eos # (Auto) (0.0-0.7) K/uL Baso # (Auto) (0.0-0.1) K/uL Nucleated RBC % /100WBC Nucleated RBCs # K/uL Sodium (136-148) mmol/L Potassium (3.5-5.1) mmol/L Chloride (98-107) mmol/L Carbon Dioxide (21.0-32.0) mmol/L BUN (7.0-18.0) mg/dL Creatinine (0.8-1.3) mg/dL Est Cr Clr Drug Dosing mL/min Estimated GFR (MDRD) ml/min Glucose (74-106) mg/dL POC Glucose 58 L 115 H (60-110) mg/dL Calcium (8.5-10.1) mg/dL Total Bilirubin (0.2-1.0) mg/dL AST (15-37) IU/L ALT (14-63) IU/L Alkaline Phosphatase (46-116) U/L Total Protein (6.4-8.2) g/dL Albumin (3.4-5.0) g/dL Globulin (2.6-4.0) g/dL Albumin/Globulin Ratio (0.9-1.6) Med Orders - Current: Current Medications Discontinued Medications Acetaminophen (Tylenol) 650 mg PO Q4H PRN PRN Reason: Pain (Mild 1-3)/fever Atorvastatin Calcium (Lipitor) 10 mg PO DAILY [facility] Last Admin: 06/12/19 08:22 Dose: 10 mg Clopidogrel Bisulfate (Plavix) 75 mg PO DAILY [facility] Last Admin: 06/12/19 08:23 Dose: 75 mg Duloxetine HCl (Cymbalta) 30 mg PO DAILY [facility] Last Admin: 06/12/19 08:30 Dose: 30 mg Sodium Chloride (Normal Saline) 500 mls @ 75 mls/hr IV STAT ONE Stop: 06/11/19 22:08 Last Admin: 06/11/19 16:39 Dose: 75 mls/hr Insulin Aspart (Novolog) 0 unit SUBCUT TIDAC [facility]; Protocol Last Admin: 06/12/19 13:27 Dose: Not Given Insulin Glargine (Lantus Solostar) 25 units SUBCUT BEDTIME [facility] Last Admin: 06/11/19 21:41 Dose: 25 units Isosorbide Mononitrate (Imdur) 30 mg PO DAILY [facility] Last Admin: 06/12/19 08:22 Dose: 30 mg Losartan Potassium (Cozaar) 50 mg PO DAILY [facility] Last Admin: 06/12/19 08:22 Dose: 50 mg Metoprolol Tartrate (Lopressor) 25 mg PO BID [facility] Last Admin: 06/12/19 08:21 Dose: 25 mg Nitroglycerin (Nitrostat) 0.4 mg SL .Q5MIN PRN PRN Reason: Chest Pain Ondansetron HCl (Zofran Odt) 4 mg PO Q4H PRN PRN Reason: nausea, able to take PO Ondansetron HCl (Zofran) 4 mg IVPUSH Q4H PRN PRN Reason: Nausea Potassium Chloride (Klor-Con M20) 40 meq PO ONETIME ONE Stop: 06/12/19 07:32 Last Admin: 06/12/19 08:21 Dose: 40 meq Sodium Chloride (Saline Flush) 10 ml FLUSH ASDIRECTED PRN PRN Reason: Keep Vein Open Sodium Chloride (Saline Flush) 2.5 ml FLUSH ASDIRECTED PRN PRN Reason: Keep Vein Open Sodium Chloride (Normal Saline) 10 ml IV ASDIRECTED PRN PRN Reason: IV Use Topiramate (Topamax) 25 mg PO BID [facility] Last Admin: 06/12/19 08:29 Dose: 25 mg - Free Text/Narrative Note: I have seen and examined the patient. I have discussed findings and treatment plan with resident. I agree with the assessment and plan as outlined in the following note.
--- NOTE | 2019-06-15 14:31 | ECHO ---
EXAM DATE: 06/11/19 PATIENT'S AGE: 53 This report can be seen in the patient's EMR (Electronic Medical Record) in the REPORTS section. The report has also been scanned into PACs. RONALD
== END 2019-06-12 11:15 | disposition home or self-care (01) ==
LOC: MW.ED 13:24 → MW.MS 14:26
PROVIDERS: ADMIT Internal Medicine; ATTEND Internal Medicine
DX: R55 Syncope and collapse (principal); S06.0X9A Concussion with loss of consciousness of unspecified duration, initial encounter; I13.0 Hypertensive heart and chronic kidney disease with heart failure and stage 1 through stage 4 chronic kidney disease, or unspecified chronic kidney disease; I50.9 Heart failure, unspecified; E10.22 Type 1 diabetes mellitus with diabetic chronic kidney disease; N18.9 Chronic kidney disease, unspecified; E10.40 Type 1 diabetes mellitus with diabetic neuropathy, unspecified; F41.9 Anxiety disorder, unspecified; F32.9 Major depressive disorder, single episode, unspecified; I25.2 Old myocardial infarction; E78.5 Hyperlipidemia, unspecified; Z95.810 Presence of automatic (implantable) cardiac defibrillator; Z95.5 Presence of coronary angioplasty implant and graft; W01.198A Fall on same level from slipping, tripping and stumbling with subsequent striking against other object, initial encounter
CPT/HCPCS: 36415; 70450; 70450-26; 71045; 71045-26; 72125; 72125-26; 80053; 81001; 82962; 84443; 84484; 85025; 85610; 85730; 93005; 93306; 96360; 96361; 99285; 99285-25; A9270-GY; G0378; J1815-GY; J7030

== ENCOUNTER 2019-06-25 08:04 | Emergency (ER) | payer MEDICARE, MEDICAID ==
--- NOTE | 2019-06-25 08:09 | EDM.PDOC ---
ED HPI GENERAL MEDICAL PROBLEM - General Chief Complaint: Cardiovascular Problem Stated Complaint: FAST HEART BEAT Time Seen by Provider: 06/25/19 08:05 Source of Information: Reports: Patient History Limitations: Reports: No Limitations - History of Present Illness INITIAL COMMENTS - FREE TEXT/NARRATIVE: 53-year-old male with a history of ACS, CAD, NSTEMI, hypertension, diabetes, pacemaker presents with concerns for pacemaker malfunction. He claims he normally sees his heart pounding on his left chest and today he did not see his heart pound on his chest wall, prompting him to come in to get checked out. He has a pacemaker interrogation scheduled on 07/15. He denies fever, chills, chest pain, palpitations, nausea, vomiting, lightheadedness, dizziness, near syncope, chest discomfort. He does note mild 5/10 nonradiating, constant left sided chest discomfort that has been unchanged since he was 16 years old, symptoms have not changed since. He takes Lantus at night and NovoLog in the morning, his Humalog is due for noon today. ROS: A 10-point review of systems, other than pertinent positives and negatives as stated per HPI, is otherwise negative PHYSICAL EXAM General: AOx4, GCS = 15, smiling in no distress HEENT: dry mucous membrane Neck: supple, no meningismus, no Kernig or Brudzinski Cardiac: S1S2 RRR Respiratory: CTAB, no crackles or rales, no wheezing Abdomen: Soft, nontender, no rebound or guarding, nondistended, no pulsatile mass. Back: nontender Musculoskeletal: NVI distally, no deformity Neuro: No focal deficits. ED COURSE 0928: After treatments and a prolonged observation period in the ER, the patient improved clinically and is stable for discharge. I performed a repeat examination and the patient has not demonstrated any new abnormal findings. Patient exhibits normal vital signs and has exhibited a normal gait. I advised the patient to return to the ER for reevaluation if symptoms worsened, and to follow up with his dye weigher helper Dr. Guthrie as appointed on 07/16/19. MEDICAL DECISION MAKING: I reviewed the patients past medical records, lab and radiographic findings. I discussed the case with family members. My differential diagnosis included: ACS, pneumonia, PE, pneumothorax, pulmonary edema/CHF, aortic dissection, pericarditis, intra-abdominal process, anxiety, arrhythmia, pacemaker malfunction. it demonstrated normal ventricular paced complexes with no tachycardia or any signs of ischemia. His troponin was unremarkable with his symptoms persistent for many years, and no acute ischemic EKG changes, I do not suspect ACS. Based on this, I feel that there is low risk for short-term major adverse cardiac event. I have discussed this with the patient and reviewed options for inpatient and outpatient management. The patient verbalizes an excellent understanding of the above, and will follow up with his dye weigher helper as appointed. Given the EKG and clinical history, I do not suspect pericarditis. There is no evidence of pneumothorax or infiltrate on CXR. Aortic dissection was considered, however the presenting symptoms were uncharacteristic of aortic dissection. Chest X-ray shows no evidence of mediastinal widening and there are strong, equal and symmetric pulses. Given the current presentation, I do not suspect aortic dissection. The patients history, chest X-ray, and exam do not suggest pulmonary edema/congestive heart failure. Pulmonary embolism was considered but felt unlikely due to the compendium of presenting elements leading to a low pre-test probability followed by a negative PERC rule. Intra-abdominal pathology felt unlikely given benign/non tender abdominal exam. His blood glucose = 341, he is not acidotic or demonstrating any signs of DKA, he is due for his Humalog in a couple hours, instructed him to be compliant with his short acting insulin and Lantus at night. Left Chest Pain Score (Numeric/FACES): 5 - Related Data Allergies Allergy/AdvReac Type Severity Reaction Status Date / Time No Known Allergies Allergy Verified 06/25/19 08:12 Home Meds: Home Meds Isosorbide Mononitrate [Imdur] 30 mg PO DAILY 12/17/16 [History] Insulin Aspart [NovoLOG] See Protocol SUBCUT TIDMEALS #0 12/25/16 [Rx] Clopidogrel [Plavix] 75 mg PO DAILY 01/05/19 [History] Metoprolol Tartrate 25 mg PO BID 01/05/19 [History] Topiramate 25 mg PO BID 01/05/19 [History] atorvaSTATin [Lipitor] 10 mg PO DAILY 01/05/19 [History] Insulin Glarg,Human.Rec.Analog [Lantus] 25 units SUBCUT BEDTIME 06/11/19 [ History] Insulin Lispro [Humalog Kwikpen U-100] 0 unit SQ ONETIME 06/11/19 [History] Losartan [Cozaar] 50 mg PO DAILY 06/11/19 [History] Nitroglycerin [Nitrostat] 0.4 mg SL .Q5MIN PRN MDD 3 06/11/19 [History] Past Medical History - Past Health History Medical/Surgical History: Denies Medical/Surgical History HEENT History: Reports: None Cardiovascular History: Reports: CAD, Heart Failure, High Cholesterol, Hypertension, [place], Pacemaker Other Cardiovascular History: Valve Problem Respiratory History: Reports: Other (See Below) Other Respiratory History: recently diagnosed with nodules in lungs Gastrointestinal History: Reports: None Genitourinary History: Reports: Chronic Renal Insuffiency Musculoskeletal History: Reports: Back Pain, Chronic Neurological History: Reports: Neuropathy, Diabetic, Other (See Below) Other Neuro History: Intracranial hypertension Psychiatric History: Reports: Anxiety, Depression Endocrine/Metabolic History: Reports: Diabetes, Type I Hematologic History: Reports: None Immunologic History: Reports: None Oncologic (Cancer) History: Reports: None Dermatologic History: Reports: None - Infectious Disease History Infectious Disease History: Reports: Influenza - Past Surgical History Head Surgeries/Procedures: Reports: None HEENT Surgical History: Reports: Oral Surgery Cardiovascular Surgical History: Reports: AICD, Coronary Artery Stent, Other ( See Below) Respiratory Surgical History: Reports: None GI Surgical History: Reports: Cholecystectomy Male Surgical History: Reports: None Endocrine Surgical History: Reports: None Neurological Surgical History: Reports: None Musculoskeletal Surgical History: Reports: None Oncologic Surgical History: Reports: None Dermatological Surgical History: Reports: None Social & Family History - Family History Family Medical History: Noncontributory - Caffeine Use Caffeine Use: Reports: None - Living Situation & Occupation Living situation: Reports: , with Spouse, with Family (2 kids) Occupation: Unemployed ED ROS GENERAL - Review of Systems Review Of Systems: Comprehensive ROS is negative, except as noted in HPI. ED EXAM, GENERAL - Physical Exam Exam: See Below EKG INTERPRETATION EKG Interpretation Comments: 96 Bpm, NSR, V paced, normal QRS interval, no STEMI. EKG and rhythm strip interpreted by me at 0812 Course - Vital Signs Last Recorded V/S: Last Vital Signs Temp 97.2 F 06/25/19 08:07 Pulse 86 06/25/19 09:04 Resp 17 06/25/19 09:04 BP 135/85 06/25/19 09:04 Pulse Ox 94 L 06/25/19 09:04 - Orders/Labs/Meds Orders: Active Orders 24 hr Category Date Time Status EKG 12 Lead [EKG Documentation Completion] [RC] STAT Care 06/25/19 08:09 Active Labs: Laboratory Tests 06/25/19 06/25/19 Range/Units 08:30 08:30 WBC 3.78 L (4.0-11.0) K/uL RBC 4.85 (4.50-5.90) M/uL Hgb 15.4 (13.0-17.0) g/dL Hct 43.6 (38.0-50.0) % MCV 89.9 (80.0-98.0) fL MCH 31.8 (27.0-32.0) pg MCHC 35.3 (31.0-37.0) g/dL RDW Std Deviation 42.5 (28.0-62.0) fl RDW Coeff of Charles 13 (11.0-15.0) % Plt Count 194 (150-400) K/uL MPV 9.80 (7.40-12.00) fL Neut % (Auto) 55.7 (48.0-80.0) % Lymph % (Auto) 30.4 (16.0-40.0) % Reeves % (Auto) 10.8 (0.0-15.0) % Eos % (Auto) 2.6 (0.0-7.0) % Baso % (Auto) 0.5 (0.0-1.5) % Neut # (Auto) 2.1 (1.4-5.7) K/uL Lymph # (Auto) 1.2 (0.6-2.4) K/uL Reeves # (Auto) 0.4 (0.0-0.8) K/uL Eos # (Auto) 0.1 (0.0-0.7) K/uL Baso # (Auto) 0.0 (0.0-0.1) K/uL Nucleated RBC % 0.0 /100WBC Nucleated RBCs # 0 K/uL Sodium 141 (136-148) mmol/L Potassium 3.3 L (3.5-5.1) mmol/L Chloride 102 (98-107) mmol/L Carbon Dioxide 25.4 (21.0-32.0) mmol/L BUN 16 (7.0-18.0) mg/dL Creatinine 1.0 (0.8-1.3) mg/dL Est Cr Clr Drug Dosing 98.18 mL/min Estimated GFR (MDRD) > 60.0 ml/min Glucose 341 H (74-106) mg/dL Calcium 8.7 (8.5-10.1) mg/dL Total Bilirubin 1.3 H (0.2-1.0) mg/dL AST 13 L (15-37) IU/L ALT 27 (14-63) IU/L Alkaline Phosphatase 97 (46-116) U/L Troponin I < 0.050 (0.000-0.056) ng/mL Total Protein 7.2 (6.4-8.2) g/dL Albumin 4.1 (3.4-5.0) g/dL Globulin 3.1 (2.6-4.0) g/dL Albumin/Globulin Ratio 1.3 (0.9-1.6) Departure - Departure Time of Disposition: 09:59 Disposition: Home, Self-Care 01 Condition: Good Clinical Impression: Palpitations Instructions: Palpitations, [id number] Referrals: Alan Guthrie MD [Physician] - 1 Week Forms: ED Department Discharge Additional Instructions: The following information is given to patients seen in the emergency department who are being discharged to home. This information is to outline your options for follow-up care. We provide all patients seen in our emergency department with a follow-up referral. The need for follow-up, as well as the timing and circumstances, are variable depending upon the specifics of your emergency department visit. If you don't have a primary care physician on staff, we will provide you with a referral. We always advise you to contact your personal physician following an emergency department visit to inform them of the circumstance of the visit and for follow-up with them and/or the need for any referrals to a consulting specialist. The emergency department will also refer you to a specialist when appropriate. This referral assures that you have the opportunity for follow-up care with a specialist. All of these measure are taken in an effort to provide you with optimal care, which includes your follow-up. Under all circumstances we always encourage you to contact your private physician who remains a resource for coordinating your care. When calling for follow-up care, please make the office aware that this follow-up is from your recent emergency room visit. If for any reason you are refused follow-up, please contact the [facility] Emergency Department at and asked to speak to the emergency department charge nurse. [facility] [address] [place] [id number] Sepsis Event Note - Focused Exam Vital Signs: Vital Signs Temp Pulse Resp BP Pulse Ox 06/25/19 09:04 86 17 135/85 94 L 06/25/19 08:49 87 17 128/84 94 L 06/25/19 08:19 90 18 141/89 H 97 06/25/19 08:07 97.2 F 93 18 148/87 H 97 Date Exam was Performed: 06/25/19 Time Exam was Performed: 09:57 - My Orders Last 24 Hours: My Active Orders 06/25/19 08:09 EKG 12 Lead [EKG Documentation Completion] [RC] STAT - Assessment/Plan Last 24 Hours: My Active Orders 06/25/19 08:09 EKG 12 Lead [EKG Documentation Completion] [RC] STAT
[2019-06-25 09:07] LABS: BLOOD UREA NITROGEN,BUN 16 mg/dL (7.0-18.0); CARBON DIOXIDE,CO2 25.4 mmol/L (21.0-32.0); CHLORIDE,CL 102 mmol/L (98-107); GLUCOSE RANDOM 341 mg/dL (74-106); SODIUM,NA 141 mmol/L (136-148)
[2019-06-25 09:10] LABS: POTASSIUM,K 3.3 mmol/L (3.5-5.1)
[2019-06-25 09:24] VITALS: PULSE 86
--- NOTE | 2019-06-25 09:52 | CR ---
Chest: 2 views of the chest were obtained. Comparison: Prior chest x-ray of 06/11/19. Heart size and mediastinum are normal. Lungs are clear. AICD is present. Bony structures are unremarkable for the patient's age. Impression: 1. Nothing acute is seen on 2 view chest x-ray. Diagnostic code #1 Study was dictated in MDT
[2019-06-25] MEDS ORDERED: Lidocaine 2% Viscous Solution 15 ML Cup PO ONE (10:11)
[2019-06-25] MEDS ORDERED: Benzocaine 20% Topical Spray UD MUCMEM ONE (10:11)
[2019-06-25 10:25] VITALS: BP 126/84
== END 2019-06-25 10:15 | disposition home or self-care (01) ==
LOC: MW.ED 08:04
DX: R00.2 Palpitations (principal); I25.10 Atherosclerotic heart disease of native coronary artery without angina pectoris; I25.2 Old myocardial infarction; I13.0 Hypertensive heart and chronic kidney disease with heart failure and stage 1 through stage 4 chronic kidney disease, or unspecified chronic kidney disease; I50.9 Heart failure, unspecified; N18.9 Chronic kidney disease, unspecified; E78.00 Pure hypercholesterolemia, unspecified; F41.9 Anxiety disorder, unspecified; E10.40 Type 1 diabetes mellitus with diabetic neuropathy, unspecified; F32.9 Major depressive disorder, single episode, unspecified; E10.22 Type 1 diabetes mellitus with diabetic chronic kidney disease; Z79.02 Long term (current) use of antithrombotics/antiplatelets; Z79.899 Other long term (current) drug therapy
CPT/HCPCS: 36415; 71046; 80053; 84484; 85025; 93005; 99285; A9270; 99283

== ENCOUNTER 2019-10-25 00:24 | Emergency (ER) | payer MEDICARE, MEDICAID, OTHER ==
[2019-10-25] MEDS ORDERED: Morphine 4 MG/ML Syringe IVPUSH ONE ×2 (00:33→02:54)
[2019-10-25] MEDS ORDERED: Sodium Chloride 0.9% 2.5 ML Syringe FLUSH PRN (00:33)
[2019-10-25] MEDS ORDERED: Aspirin 81 MG Tab.Chew PO ONE (00:33)
[2019-10-25] MEDS ORDERED: Sodium Chloride 0.9% 10 ML Syringe FLUSH PRN (00:33)
[2019-10-25] MEDS ORDERED: Ondansetron 4 MG/2 ML SDV IVPUSH ONE (00:33)
[2019-10-25] MEDS ORDERED: Sodium Chloride 0.9% 1,000 ML IV ONE (00:33)
--- NOTE | 2019-10-25 01:19 | EDM.PDOC ---
ED HPI GENERAL MEDICAL PROBLEM - General Chief Complaint: Chest Pain Stated Complaint: DEFIBRILATOR ISSUES Time Seen by Provider: 10/25/19 00:33 Source of Information: Reports: Patient, EMS History Limitations: Reports: No Limitations - History of Present Illness INITIAL COMMENTS - FREE TEXT/NARRATIVE: History of present illness: [Patient is 53-year-old male with a defibrillator/pacemaker in place for history of heart failure who presents after suspected defibrillator shock was administered earlier this evening. Patient states that the shock came out of nowhere. He had no symptoms preceding this shock. He states a similar event happened about 8 months ago when he was in [place] and he was admitted to the hospital and observed for a day or 2 and eventually discharged. He does not recall any specific diagnosis or definitive cause at that time, when asked if he was told that the defibrillator fired appropriately he could not recall for sure. He states that after the defibrillator fired he has had chest pain over the left anterior chest wall. He is felt diaphoretic and a little bit shaky. EMS reports that in route here he had what appeared to be a brief syncopal episode, between 10 and 15 seconds. Patient denies any recent URI symptoms, fever, chills, vomiting, diarrhea. He follows up with Dr. Yanick Alarcon cardiology.] Review of systems: As per history of present illness and below otherwise all systems reviewed and negative. Past medical history: As per history of present illness and as reviewed below otherwise noncontributory. Surgical history: As per history of present illness and as reviewed below otherwise noncontributory. Social history: No reported history of drug or alcohol abuse. Family history: As per history of present illness and as reviewed below otherwise noncontributory. Physical exam: General: Awake, alert, mild distress, A&O X3. HEENT: Atraumatic, normocephalic, pupils reactive, negative for conjunctival pallor or scleral icterus, mucous membranes moist, throat clear, neck supple, nontender, trachea midline. Lungs: Clear to auscultation, breath sounds equal bilaterally, chest nontender. Heart: tachycardic, normal S1S2, no JVD. Abdomen: Soft, nondistended, nontender. Negative for masses or hepatosplenomegaly. Negative for costovertebral tenderness. Pelvis: Stable nontender. Genitourinary: Deferred. Rectal: Deferred. Extremities: Atraumatic, no edema, Neurovascular unremarkable. Neuro: Motor and sensory grossly intact throughout. Exam nonfocal. Skin: diaphoretic Diagnostics: [] Therapeutics: [] Impression: [] Plan: [] Definitive disposition and diagnosis as appropriate pending reevaluation and review of above. chest pain Pain Score (Numeric/FACES): 7 - Related Data Allergies Allergy/AdvReac Type Severity Reaction Status Date / Time No Known Allergies Allergy Verified 10/25/19 00:35 Home Meds: Home Meds Isosorbide Mononitrate [Imdur] 30 mg PO DAILY 12/17/16 [History] Insulin Aspart [NovoLOG] See Protocol SUBCUT TIDMEALS #0 12/25/16 [Rx] Clopidogrel [Plavix] 75 mg PO DAILY 01/05/19 [History] Metoprolol Tartrate 25 mg PO BID 01/05/19 [History] Topiramate 25 mg PO BID 01/05/19 [History] atorvaSTATin [Lipitor] 10 mg PO DAILY 01/05/19 [History] Insulin Glarg,Human.Rec.Analog [Lantus] 25 units SUBCUT BEDTIME 06/11/19 [History] Insulin Lispro [Humalog Kwikpen U-100] 0 unit SQ ONETIME 06/11/19 [History] Losartan [Cozaar] 50 mg PO DAILY 06/11/19 [History] Nitroglycerin [Nitrostat] 0.4 mg SL .Q5MIN PRN MDD 3 06/11/19 [History] Penicillin V Potassium [Veetids] 500 mg PO Q6H #20 tab 06/25/19 [Rx] Past Medical History - Past Health History Medical/Surgical History: Denies Medical/Surgical History HEENT History: Reports: None Cardiovascular History: Reports: CAD, Heart Failure, High Cholesterol, Hypertension, [place], Pacemaker Other Cardiovascular History: Valve Problem Respiratory History: Reports: Other (See Below) Other Respiratory History: recently diagnosed with nodules in lungs Gastrointestinal History: Reports: None Genitourinary History: Reports: Chronic Renal Insuffiency Musculoskeletal History: Reports: Back Pain, Chronic Neurological History: Reports: Neuropathy, Diabetic, Other (See Below) Other Neuro History: Intracranial hypertension Psychiatric History: Reports: Anxiety, Depression Endocrine/Metabolic History: Reports: Diabetes, Type I Insulin Pump Model and Museum Preparator: None Hematologic History: Reports: None Immunologic History: Reports: None Oncologic (Cancer) History: Reports: None Dermatologic History: Reports: None - Infectious Disease History Infectious Disease History: Reports: None - Past Surgical History Head Surgeries/Procedures: Reports: None HEENT Surgical History: Reports: Oral Surgery Cardiovascular Surgical History: Reports: AICD, Coronary Artery Stent, Other (See Below) Respiratory Surgical History: Reports: None GI Surgical History: Reports: Cholecystectomy Male Surgical History: Reports: None Endocrine Surgical History: Reports: None Neurological Surgical History: Reports: None Musculoskeletal Surgical History: Reports: None Oncologic Surgical History: Reports: None Dermatological Surgical History: Reports: None Social & Family History - Family History Family Medical History: Noncontributory - Tobacco Use Smoking Status *Q: Never Smoker - Caffeine Use Caffeine Use: Reports: None - Recreational Drug Use Recreational Drug Use: No - Living Situation & Occupation Living situation: Reports: , with Spouse, with Family (2 kids) Occupation: Unemployed ED ROS GENERAL - Review of Systems Review Of Systems: Comprehensive ROS is negative, except as noted in HPI. ED EXAM, GENERAL - Physical Exam Exam: See Below (see h and p) EKG INTERPRETATION EKG Date: 10/25/19 Time: 12:48 Rhythm: Other (paced) Rate (Beats/Min): 106 [place]: Normal EKG Interpretation Comments: baseline wander with some baseline artifact Course - Vital Signs Text/Narrative:: Initial plan was to admit the patient for a device interrogation on Friday. However serial troponins show that his second troponin was elevated and the patient had multiple episodes of inappropriate shocks. He was being monitored and there is no evidence of V. tach or V. fib or other irregular or wide-complex rhythms prior to the shocks being administered. Eventually we put the donut magnet over the device to stop further inappropriate ICD shocks. However, given my suspicion that he is having inappropriate shocks along with the elevated serial troponin I believe the safest and best approach for this patient's management is to send him to my not for cardiology evaluation, device interrogation, and further monitoring and work-up there. Patient understands this plan and is agreeable with it. After the donut was placed and taped over the pacemaker device he had no further shocks administered. Last Recorded V/S: Last Vital Signs Temp 35.8 C L 10/25/19 03:24 Pulse 104 H 10/25/19 03:24 Resp 18 10/25/19 03:24 BP 132/88 10/25/19 03:24 Pulse Ox 98 10/25/19 03:24 - Orders/Labs/Meds Orders: Active Orders 24 hr Category Date Time Status Saline Lock Insert [OM.PC] Stat Oth 10/25/19 00:34 Ordered Labs: Laboratory Tests 10/25/19 10/25/19 10/25/19 Range/Units 00:35 00:35 00:35 WBC 6.27 (4.0-11.0) K/uL RBC 5.66 (4.50-5.90) M/uL Hgb 18.6 H (13.0-17.0) g/dL Hct 50.5 H (38.0-50.0) % MCV 89.2 (80.0-98.0) fL MCH 32.9 H (27.0-32.0) pg MCHC 36.8 (31.0-37.0) g/dL RDW Std Deviation 40.9 (28.0-62.0) fl RDW Coeff of Charles 13 (11.0-15.0) % Plt Count 214 (150-400) K/uL MPV 9.80 (7.40-12.00) fL Neut % (Auto) 46.2 L (48.0-80.0) % Lymph % (Auto) 40.0 (16.0-40.0) % Bonner % (Auto) 11.5 (0.0-15.0) % Eos % (Auto) 1.8 (0.0-7.0) % Baso % (Auto) 0.5 (0.0-1.5) % Neut # (Auto) 2.9 (1.4-5.7) K/uL Lymph # (Auto) 2.5 H (0.6-2.4) K/uL Bonner # (Auto) 0.7 (0.0-0.8) K/uL Eos # (Auto) 0.1 (0.0-0.7) K/uL Baso # (Auto) 0.0 (0.0-0.1) K/uL INR 0.98 APTT 19.8 (18.6-31.3) SEC Sodium 141 (136-148) mmol/L Potassium 3.1 L (3.5-5.1) mmol/L Chloride 100 (98-107) mmol/L Carbon Dioxide 26.8 (21.0-32.0) mmol/L BUN 12 (7.0-18.0) mg/dL Creatinine 1.0 (0.8-1.3) mg/dL Est Cr Clr Drug Dosing 98.18 mL/min Estimated GFR (MDRD) > 60.0 ml/min Glucose 92 (74-106) mg/dL Calcium 8.9 (8.5-10.1) mg/dL Total Bilirubin 1.1 H (0.2-1.0) mg/dL AST 50 H (15-37) IU/L ALT 61 (14-63) IU/L Alkaline Phosphatase 140 H (46-116) U/L CK-MB (CK-2) 1.5 (0-3.6) ng/mL Troponin I < 0.050 (0.000-0.056) ng/mL Total Protein 7.9 (6.4-8.2) g/dL Albumin 4.6 (3.4-5.0) g/dL Globulin 3.3 (2.6-4.0) g/dL Albumin/Globulin Ratio 1.4 (0.9-1.6) COVID-19 (ABBIE) (NEGATIVE) 10/25/19 10/25/19 Range/Units 01:40 02:20 WBC (4.0-11.0) K/uL RBC (4.50-5.90) M/uL Hgb (13.0-17.0) g/dL Hct (38.0-50.0) % MCV (80.0-98.0) fL MCH (27.0-32.0) pg MCHC (31.0-37.0) g/dL RDW Std Deviation (28.0-62.0) fl RDW Coeff of Charles (11.0-15.0) % Plt Count (150-400) K/uL MPV (7.40-12.00) fL Neut % (Auto) (48.0-80.0) % Lymph % (Auto) (16.0-40.0) % Bonner % (Auto) (0.0-15.0) % Eos % (Auto) (0.0-7.0) % Baso % (Auto) (0.0-1.5) % Neut # (Auto) (1.4-5.7) K/uL Lymph # (Auto) (0.6-2.4) K/uL Bonner # (Auto) (0.0-0.8) K/uL Eos # (Auto) (0.0-0.7) K/uL Baso # (Auto) (0.0-0.1) K/uL INR APTT (18.6-31.3) SEC Sodium (136-148) mmol/L Potassium (3.5-5.1) mmol/L Chloride (98-107) mmol/L Carbon Dioxide (21.0-32.0) mmol/L BUN (7.0-18.0) mg/dL Creatinine (0.8-1.3) mg/dL Est Cr Clr Drug Dosing mL/min Estimated GFR (MDRD) ml/min Glucose (74-106) mg/dL Calcium (8.5-10.1) mg/dL Total Bilirubin (0.2-1.0) mg/dL AST (15-37) IU/L ALT (14-63) IU/L Alkaline Phosphatase (46-116) U/L CK-MB (CK-2) (0-3.6) ng/mL Troponin I 0.216 H* (0.000-0.056) ng/mL Total Protein (6.4-8.2) g/dL Albumin (3.4-5.0) g/dL Globulin (2.6-4.0) g/dL Albumin/Globulin Ratio (0.9-1.6) COVID-19 (ABBIE) NEGATIVE (NEGATIVE) Meds: Medications Discontinued Medications Generic Name Dose Route Start Last Admin Trade Name Freq PRN Reason Stop Dose Admin Aspirin 324 mg 10/25/19 00:33 10/25/19 00:47 Aspirin PO 10/25/19 00:34 324 mg ONETIME ONE Administration Hydromorphone HCl 1 mg 10/25/19 03:32 10/25/19 03:49 Dilaudid IVPUSH 10/25/19 03:33 1 mg ONETIME ONE Administration Sodium Chloride 1,000 mls @ 999 mls/hr 10/25/19 00:33 10/25/19 00:45 Normal Saline IV 10/25/19 01:33 999 mls/hr .Bolus ONE Administration Morphine Sulfate 4 mg 10/25/19 00:33 10/25/19 00:47 Morphine IVPUSH 10/25/19 00:34 4 mg ONETIME ONE Administration Morphine Sulfate 4 mg 10/25/19 02:54 10/25/19 03:06 Morphine IVPUSH 10/25/19 02:55 4 mg ONETIME ONE Administration Ondansetron HCl 4 mg 10/25/19 00:33 10/25/19 00:46 Zofran IVPUSH 10/25/19 00:34 4 mg ONETIME ONE Administration Potassium Chloride 40 meq 10/25/19 01:42 10/25/19 02:25 Potassium Chloride PO 10/25/19 01:43 40 meq ONETIME ONE Administration Sodium Chloride 10 ml 10/25/19 00:33 Saline Flush FLUSH ASDIRECTED PRN Keep Vein Open Sodium Chloride 2.5 ml 10/25/19 00:33 Saline Flush FLUSH ASDIRECTED PRN Keep Vein Open - Re-Assessments/Exams Free Text/Narrative Re-Assessment/Exam: 10/25/19 03:43 Repeat EKG was performed. Time: 3:12 Rate: 108 Rhythm: Paced No evidence for QRS widening or acute change from previous EKG. Free Text/Narrative Re-Assessment/Exam: 10/25/19 05:39 The EMS crew transferring the patient to [place] called with a question, they believe the patient had another defibrillation/shock about 45 minutes after leaving here. They state the episode lasted about 15 seconds. Patient seemed to be out of it for about a minute before he was again alert and oriented and answering questions appropriately. This episode seems to be consistent with the episodes he was having here in the ED. I asked them to ensure that the magnet was over the body of the pacemaker/defibrillator device and that it had not slid off or moved. His blood pressure remained stable. They asked if they should return here or continue onward to [place]. Based on the report to me it appeared the patient had returned to his baseline, I told him it was in the patient's best interest to continue with transport because we could not offer the definitive care he would need and he did not have any evidence of V. tach or V. fib according to the EMS crew and he has returned to a normal mental status and again is stable vital signs. Departure - Departure Time of Disposition: 03:50 Disposition: DC/Tfer to Acute Hospital 02 Reason for Transfer *Q: Other (consult with EP cardiology for device interrogation and possible intervention) Condition: Fair Clinical Impression: ICD (implantable cardioverter-defibrillator) malfunction Instructions: Nonspecific Chest Pain, Adult, [id number] Referrals: PCP,None [Primary Care Provider] - Forms: ED Department Discharge Critical Care Note - Critical Care Note Total Time (mins): 45 Comments: Patient required frequent reexaminations, monitoring heart rhythm, and eventual placement of donut magnet over his ICD/pacemaker device to stop the recurrent and apparently inappropriate shocks being administered by the device. Risk for deterioration includes irregular heart rhythm, hemodynamic stability, defibrillating shocks. Sepsis Event Note (ED) - Evaluation Sepsis Screening Result: No Definite Risk - Focused Exam Vital Signs: Vital Signs Temp Pulse Resp BP Pulse Ox 10/25/19 03:24 35.8 C L 104 H 18 132/88 98 10/25/19 02:28 35.8 C L 98 18 132/83 97 10/25/19 01:37 102 H 18 147/87 H 100 10/25/19 01:15 102 H 18 170/88 H 98 10/25/19 00:25 35.7 C L 115 H 20 172/112 H 96 - My Orders Last 24 Hours: My Active Orders 10/25/19 00:34 Saline Lock Insert [OM.PC] Stat - Assessment/Plan Last 24 Hours: My Active Orders 10/25/19 00:34 Saline Lock Insert [OM.PC] Stat Assessment:: Patient transferred to Dr. Aramis Estrada is accepting physician there in the ED.
--- NOTE | 2019-10-25 01:23 | CR ---
INDICATION: Chest pain TECHNIQUE: AP view of the chest. COMPARISON: Two-view chest radiographs 06/25/2019 FINDINGS: The lungs are clear. There is no sizable pleural effusion or pneumothorax. The cardiomediastinal silhouette is stable. Pacemaker is noted. The visualized osseous structures are unremarkable. Defibrillator pad overlies the right chest wall. IMPRESSION: No acute intrathoracic process. Dictated by Tico Collins MD @ Oct 25 2019 1:20AM Signed by Dr. Tico Collins @ Oct 25 2019 1:22AM
[2019-10-25 01:28] LABS: BLOOD UREA NITROGEN,BUN 12 mg/dL (7.0-18.0); CARBON DIOXIDE,CO2 26.8 mmol/L (21.0-32.0); CHLORIDE,CL 100 mmol/L (98-107); GLUCOSE RANDOM 92 mg/dL (74-106); POTASSIUM,K 3.1 mmol/L (3.5-5.1); SODIUM,NA 141 mmol/L (136-148)
[2019-10-25] MEDS ORDERED: Potassium Chloride 10% 20 MEQ/15 ML Soln 30 ML UD Cup PO ONE (01:42)
[2019-10-25 03:29] VITALS: BP 132/88; PULSE 104
[2019-10-25] MEDS ORDERED: HYDROmorphone 1 MG/ML Syringe IVPUSH ONE (03:32)
== END 2019-10-25 04:05 ==
LOC: MW.ED 00:24
DX: T82.198A Other mechanical complication of other cardiac electronic device, initial encounter (principal); Z20.828 Contact with and (suspected) exposure to other viral communicable diseases; I13.0 Hypertensive heart and chronic kidney disease with heart failure and stage 1 through stage 4 chronic kidney disease, or unspecified chronic kidney disease; E10.22 Type 1 diabetes mellitus with diabetic chronic kidney disease; I50.9 Heart failure, unspecified; N18.9 Chronic kidney disease, unspecified; E10.40 Type 1 diabetes mellitus with diabetic neuropathy, unspecified; I25.10 Atherosclerotic heart disease of native coronary artery without angina pectoris; I25.2 Old myocardial infarction; E78.00 Pure hypercholesterolemia, unspecified; Z95.5 Presence of coronary angioplasty implant and graft; Z90.49 Acquired absence of other specified parts of digestive tract; Z79.02 Long term (current) use of antithrombotics/antiplatelets; Z79.899 Other long term (current) drug therapy
CPT/HCPCS: 36415; 71045; 80053; 82553; 84484; 85025; 85610; 85730; 93005; 96374; 96375; 96376; 99285; A9270; J1170; J2270; J2405; J7030; U0002; 93010; 99284

== ENCOUNTER 2019-11-02 10:57 | Observation (INO) | payer MEDICARE, MEDICAID, OTHER ==
[2019-11-02] MEDS ORDERED: Aspirin 81 MG Tab.Chew PO ONE (11:11)
[2019-11-02] MEDS ORDERED: Sodium Chloride 0.9% 2.5 ML Syringe FLUSH PRN ×3 (11:11→15:32)
[2019-11-02] MEDS: Sodium Chloride 0.9% 10 ML Syringe FLUSH PRN ×2 (11:30→15:10)
--- NOTE | 2019-11-02 11:48 | EDM.PDOC ---
ED HPI GENERAL MEDICAL PROBLEM - General Chief Complaint: Syncope Stated Complaint: CHEST PAIN Time Seen by Provider: 11/02/19 11:10 - History of Present Illness INITIAL COMMENTS - FREE TEXT/NARRATIVE: History of present illness: Patient presents with a syncopal episode and feeling lightheaded when some chest pain. He is a cardiac patient with multiple valve dysfunctions and coronary artery disease and cardiomyopathy. He was recently in [facility] where he was evaluated for having his pacemaker go off a couple times this was last week he went to follow-up with his regular doctor today had a syncopal episode in the office and was sent over to the emergency department here in the emergency department he had a second syncopal episode he is diaphoretic complaining of chest pain and he denies his defibrillator going off again chest pain substernal rating into the left shoulder is associated with shortness of breath and lightheadedness and syncopal events. He denies any fever chills or cough no trouble breathing no leg pain or leg swelling nothing seems to make it better or worse Review of systems: As per history of present illness and below otherwise all systems reviewed and negative. Past medical history: As per history of present illness and as reviewed below otherwise noncontributory. Surgical history: As per history of present illness and as reviewed below otherwise noncontributory. Social history: No reported history of drug or alcohol abuse. Family history: As per history of present illness and as reviewed below otherwise noncontributory. Physical exam: HEENT: Atraumatic, normocephalic, pupils reactive, negative for conjunctival pallor or scleral icterus, mucous membranes moist, throat clear, neck supple, nontender, trachea midline. Lungs: Clear to auscultation, breath sounds equal bilaterally, chest nontender. Heart: S1S2, regular, negative for clicks, rubs, or JVD. Abdomen: Soft, nondistended, nontender. Negative for masses or hepatosplenomegaly. Negative for costovertebral tenderness. Pelvis: Stable nontender. Genitourinary: Deferred. Rectal: Deferred. Extremities: Atraumatic, negative for cords or calf pain. Neurovascular unremarkable. Neuro: Awake, alert, oriented. Cranial nerves II through XII unremarkable. Cerebellum unremarkable. Motor and sensory unremarkable throughout. Exam nonfocal. Diagnostics: [] Therapeutics: [] Impression: Chest pain, syncope [] Plan: Cardiac evaluation transfer to [facility] for further evaluation. [] Definitive disposition and diagnosis as appropriate pending reevaluation and review of above. - Related Data Allergies Allergy/AdvReac Type Severity Reaction Status Date / Time No Known Allergies Allergy Verified 11/02/19 11:18 Home Meds: Home Meds Isosorbide Mononitrate [Imdur] 30 mg PO DAILY 12/17/16 [History] Insulin Aspart [NovoLOG] See Protocol SUBCUT TIDMEALS #0 12/25/16 [Rx] Clopidogrel [Plavix] 75 mg PO DAILY 01/05/19 [History] Metoprolol Tartrate 25 mg PO BID 01/05/19 [History] Topiramate 25 mg PO BID 01/05/19 [History] atorvaSTATin [Lipitor] 10 mg PO DAILY 01/05/19 [History] Insulin Glarg,Human.Rec.Analog [Lantus] 25 units SUBCUT BEDTIME 06/11/19 [History] Insulin Lispro [Humalog Kwikpen U-100] 0 unit SQ ONETIME 06/11/19 [History] Losartan [Cozaar] 50 mg PO DAILY 06/11/19 [History] Nitroglycerin [Nitrostat] 0.4 mg SL .Q5MIN PRN MDD 3 06/11/19 [History] Penicillin V Potassium [Veetids] 500 mg PO Q6H #20 tab 06/25/19 [Rx] Past Medical History - Past Health History Medical/Surgical History: Denies Medical/Surgical History HEENT History: Reports: None Cardiovascular History: Reports: CAD, Heart Failure, High Cholesterol, Hypertension, [place], Pacemaker Other Cardiovascular History: Valve Problem Respiratory History: Reports: Other (See Below) Other Respiratory History: recently diagnosed with nodules in lungs Gastrointestinal History: Reports: None Genitourinary History: Reports: Chronic Renal Insuffiency Musculoskeletal History: Reports: Back Pain, Chronic Neurological History: Reports: Neuropathy, Diabetic, Other (See Below) Other Neuro History: Intracranial hypertension Psychiatric History: Reports: Anxiety, Depression Endocrine/Metabolic History: Reports: Diabetes, Type I Insulin Pump Model and Pharmaceutical Salesperson: None Hematologic History: Reports: None Immunologic History: Reports: None Oncologic (Cancer) History: Reports: None Dermatologic History: Reports: None - Infectious Disease History Infectious Disease History: Reports: None - Past Surgical History Head Surgeries/Procedures: Reports: None HEENT Surgical History: Reports: Oral Surgery Cardiovascular Surgical History: Reports: AICD, Coronary Artery Stent, Other (See Below) Respiratory Surgical History: Reports: None GI Surgical History: Reports: Cholecystectomy Male Surgical History: Reports: None Endocrine Surgical History: Reports: None Neurological Surgical History: Reports: None Musculoskeletal Surgical History: Reports: None Oncologic Surgical History: Reports: None Dermatological Surgical History: Reports: None Social & Family History - Family History Family Medical History: Noncontributory - Tobacco Use Smoking Status *Q: Unknown Ever Smoked - Caffeine Use Caffeine Use: Reports: None - Recreational Drug Use Recreational Drug Use: No - Living Situation & Occupation Living situation: Reports: , with Spouse, with Family (2 kids) Occupation: Unemployed ED ROS GENERAL - Review of Systems Review Of Systems: See Below ED EXAM, GENERAL - Physical Exam Exam: See Below EKG INTERPRETATION EKG Interpretation Comments: EKG is a pacemaker with a rate of 82 bpm no obvious ischemic changes read and interpreted by me Course - Vital Signs Text/Narrative:: One-view portable chest read interpreted by me no acute cardiopulmonary pathology is evident there is an implantable defibrillator present with leads appropriately placed At 1 PM I discussed the case with Dr. Herndon who is not in town but is available for his insights into the patient he just had a full work-up at my not with a negative cath echo was normal ejection fraction good and he is able to consult if needed via phone Nikki my not is on full divert and it is not an option for the patient to go there he is not wanting to be sent outside of town Rol[place] the case with Dr. Spaulding at 120 he will accept the patient. Patient is continuing to have some chest pain repeat EKG shows an atrial sensed pacer no ischemic changes rate of 82 beats a minute patient will be given morp debbie and Zofran Last Recorded V/S: Last Vital Signs Temp 36.8 C 11/02/19 11:18 Pulse 78 11/02/19 12:10 Resp 17 11/02/19 11:18 BP 118/76 11/02/19 12:10 Pulse Ox 97 11/02/19 12:10 - Orders/Labs/Meds Orders: Active Orders 24 hr Category Date Time Status Patient Status [ADT] Routine ADT 11/02/19 13:30 Active Cardiac Monitoring [RC] . DIRECTED Care 11/02/19 11:11 Active EKG Documentation Completion [RC] STAT Care 11/02/19 11:11 Active Pulse Oximetry [RC] ASDIRECTED Care 11/02/19 11:11 Active CORONAVIRUS COVID-19 PCR PHL Stat Lab 11/02/19 13:29 Ordered Morphine Med 11/02/19 13:37 Once 4 mg IVPUSH ONETIME ONE Ondansetron [Zofran] Med 11/02/19 13:38 Once 4 mg IVPUSH ONETIME ONE Sodium Chloride 0.9% [Saline Flush] Med 11/02/19 11:11 Active 10 ml FLUSH ASDIRECTED PRN Sodium Chloride 0.9% [Saline Flush] Med 11/02/19 11:11 Active 2.5 ml FLUSH ASDIRECTED PRN Sodium Chloride 0.9% [Saline Flush] Med 11/02/19 11:11 Active 2.5 ml FLUSH ASDIRECTED PRN Saline Lock Insert [OM.PC] Stat Oth 11/02/19 11:11 Ordered Medication Orders Sodium Chloride (Saline Flush) 10 ml FLUSH ASDIRECTED PRN PRN Reason: Keep Vein Open Last Admin: 11/02/19 11:30 Dose: 10 ml Documented by: MURDNIC Sodium Chloride (Saline Flush) 2.5 ml FLUSH ASDIRECTED PRN PRN Reason: Keep Vein Open Last Admin: 11/02/19 11:30 Dose: 2.5 ml Documented by: MURDNIC Sodium Chloride (Saline Flush) 2.5 ml FLUSH ASDIRECTED PRN PRN Reason: Keep Vein Open Labs: Laboratory Tests 11/02/19 11/02/19 11/02/19 Range/Units 11:05 11:05 11:05 WBC 4.40 (4.0-11.0) K/uL RBC 4.51 (4.50-5.90) M/uL Hgb 14.8 (13.0-17.0) g/dL Hct 42.0 (38.0-50.0) % MCV 93.1 (80.0-98.0) fL MCH 32.8 H (27.0-32.0) pg MCHC 35.2 (31.0-37.0) g/dL RDW Std Deviation 42.5 (28.0-62.0) fl RDW Coeff of Charles 13 (11.0-15.0) % Plt Count 239 (150-400) K/uL MPV 10.50 (7.40-12.00) fL Neut % (Auto) 58.1 (48.0-80.0) % Lymph % (Auto) 27.5 (16.0-40.0) % Upton % (Auto) 10.9 (0.0-15.0) % Eos % (Auto) 3.0 (0.0-7.0) % Baso % (Auto) 0.5 (0.0-1.5) % Neut # (Auto) 2.6 (1.4-5.7) K/uL Lymph # (Auto) 1.2 (0.6-2.4) K/uL Upton # (Auto) 0.5 (0.0-0.8) K/uL Eos # (Auto) 0.1 (0.0-0.7) K/uL Baso # (Auto) 0.0 (0.0-0.1) K/uL Nucleated RBC % 0.0 /100WBC Nucleated RBCs # 0 K/uL INR 1.05 Sodium 141 (136-148) mmol/L Potassium 3.7 (3.5-5.1) mmol/L Chloride 104 (98-107) mmol/L Carbon Dioxide 26.6 (21.0-32.0) mmol/L BUN 14 (7.0-18.0) mg/dL Creatinine 1.2 (0.8-1.3) mg/dL Est Cr Clr Drug Dosing 72.66 mL/min Estimated GFR (MDRD) > 60.0 ml/min Glucose 278 H (74-106) mg/dL Calcium 8.7 (8.5-10.1) mg/dL Total Bilirubin 1.1 H (0.2-1.0) mg/dL AST 34 (15-37) IU/L ALT 49 (14-63) IU/L Alkaline Phosphatase 124 H (46-116) U/L Troponin I < 0.050 (0.000-0.056) ng/mL B-Natriuretic Peptide (<100) PG/ML Total Protein 7.0 (6.4-8.2) g/dL Albumin 4.1 (3.4-5.0) g/dL Globulin 2.9 (2.6-4.0) g/dL Albumin/Globulin Ratio 1.4 (0.9-1.6) 08/25/20 Range/Units 11:05 WBC (4.0-11.0) K/uL RBC (4.50-5.90) M/uL Hgb (13.0-17.0) g/dL Hct (38.0-50.0) % MCV (80.0-98.0) fL MCH (27.0-32.0) pg MCHC (31.0-37.0) g/dL RDW Std Deviation (28.0-62.0) fl RDW Coeff of Charles (11.0-15.0) % Plt Count (150-400) K/uL MPV (7.40-12.00) fL Neut % (Auto) (48.0-80.0) % Lymph % (Auto) (16.0-40.0) % Upton % (Auto) (0.0-15.0) % Eos % (Auto) (0.0-7.0) % Baso % (Auto) (0.0-1.5) % Neut # (Auto) (1.4-5.7) K/uL Lymph # (Auto) (0.6-2.4) K/uL Upton # (Auto) (0.0-0.8) K/uL Eos # (Auto) (0.0-0.7) K/uL Baso # (Auto) (0.0-0.1) K/uL Nucleated RBC % /100WBC Nucleated RBCs # K/uL INR Sodium (136-148) mmol/L Potassium (3.5-5.1) mmol/L Chloride (98-107) mmol/L Carbon Dioxide (21.0-32.0) mmol/L BUN (7.0-18.0) mg/dL Creatinine (0.8-1.3) mg/dL Est Cr Clr Drug Dosing mL/min Estimated GFR (MDRD) ml/min Glucose (74-106) mg/dL Calcium (8.5-10.1) mg/dL Total Bilirubin (0.2-1.0) mg/dL AST (15-37) IU/L ALT (14-63) IU/L Alkaline Phosphatase (46-116) U/L Troponin I (0.000-0.056) ng/mL B-Natriuretic Peptide 29 (<100) PG/ML Total Protein (6.4-8.2) g/dL Albumin (3.4-5.0) g/dL Globulin (2.6-4.0) g/dL Albumin/Globulin Ratio (0.9-1.6) Meds: Medications Generic Name Dose Route Start Last Admin Trade Name Freq PRN Reason Stop Dose Admin Sodium Chloride 10 ml 11/02/19 11:11 11/02/19 11:30 Saline Flush FLUSH 10 ml ASDIRECTED PRN Administration Keep Vein Open Sodium Chloride 2.5 ml 11/02/19 11:11 11/02/19 11:30 Saline Flush FLUSH 2.5 ml ASDIRECTED PRN Administration Keep Vein Open Sodium Chloride 2.5 ml 11/02/19 11:11 Saline Flush FLUSH ASDIRECTED PRN Keep Vein Open Discontinued Medications Generic Name Dose Route Start Last Admin Trade Name Freq PRN Reason Stop Dose Admin Aspirin 324 mg 11/02/19 11:11 11/02/19 11:29 Aspirin PO 11/02/19 11:12 324 mg ONETIME ONE Administration Departure - Departure Time of Disposition: 13:30 Disposition: Refer to Observation Condition: Fair Clinical Impression: Syncope - Discharge Information Forms: ED Department Discharge Sepsis Event Note (ED) - Evaluation Sepsis Screening Result: No Definite Risk - Focused Exam Vital Signs: Vital Signs Temp Pulse Resp BP Pulse Ox 11/02/19 12:10 78 118/76 97 11/02/19 11:55 78 108/73 96 11/02/19 11:40 80 115/76 98 11/02/19 11:25 81 110/73 96 11/02/19 11:18 36.8 C 81 17 154/88 H 98 11/02/19 11:05 87 137/90 99 - My Orders Last 24 Hours: My Active Orders 11/02/19 11:11 Cardiac Monitoring [RC] . DIRECTED EKG Documentation Completion [RC] STAT Pulse Oximetry [RC] ASDIRECTED Sodium Chloride 0.9% [Saline Flush] 10 ml FLUSH ASDIRECTED PRN Sodium Chloride 0.9% [Saline Flush] 2.5 ml FLUSH ASDIRECTED PRN Sodium Chloride 0.9% [Saline Flush] 2.5 ml FLUSH ASDIRECTED PRN Saline Lock Insert [OM.PC] Stat 11/02/19 13:29 CORONAVIRUS COVID-19 PCR PHL Stat 11/02/19 13:30 Patient Status [ADT] Routine 11/02/19 13:37 Morphine 4 mg IVPUSH ONETIME ONE 11/02/19 13:38 Ondansetron [Zofran] 4 mg IVPUSH ONETIME ONE - Assessment/Plan Last 24 Hours: My Active Orders 11/02/19 11:11 Cardiac Monitoring [RC] . DIRECTED EKG Documentation Completion [RC] STAT Pulse Oximetry [RC] ASDIRECTED Sodium Chloride 0.9% [Saline Flush] 10 ml FLUSH ASDIRECTED PRN Sodium Chloride 0.9% [Saline Flush] 2.5 ml FLUSH ASDIRECTED PRN Sodium Chloride 0.9% [Saline Flush] 2.5 ml FLUSH ASDIRECTED PRN Saline Lock Insert [OM.PC] Stat 11/02/19 13:29 CORONAVIRUS COVID-19 PCR PHL Stat 11/02/19 13:30 Patient Status [ADT] Routine 11/02/19 13:37 Morphine 4 mg IVPUSH ONETIME ONE 11/02/19 13:38 Ondansetron [Zofran] 4 mg IVPUSH ONETIME ONE
[2019-11-02 11:49] LABS: BLOOD UREA NITROGEN,BUN 14 mg/dL (7.0-18.0); CARBON DIOXIDE,CO2 26.6 mmol/L (21.0-32.0); CHLORIDE,CL 104 mmol/L (98-107); GLUCOSE RANDOM 278 mg/dL (74-106); POTASSIUM,K 3.7 mmol/L (3.5-5.1); SODIUM,NA 141 mmol/L (136-148)
--- NOTE | 2019-11-02 11:51 | CR ---
Chest: Portable view of the chest was obtained. Comparison: Prior chest x-ray of 10/25/19. Heart size and mediastinum are normal. Lungs are clear. Pacemaker or AICD is present. Epicardial wires also noted. Bony structures are grossly intact. Impression: 1. Findings as noted above. Nothing acute is appreciated. Diagnostic code #2 This report was dictated in MDT
[2019-11-02] MEDS ORDERED: Morphine 4 MG/ML Syringe IVPUSH ONE ×2 (13:37→15:47)
[2019-11-02] MEDS ORDERED: Ondansetron 4 MG/2 ML SDV IVPUSH ONE (13:38)
[2019-11-02] MEDS ORDERED: Ondansetron 4 MG/2 ML SDV IVPUSH PRN (15:29)
[2019-11-02] MEDS ORDERED: Acetaminophen 325 MG Tab PO PRN (15:29)
[2019-11-02] MEDS ORDERED: Alum Hydrox/Mag Hydrox/Simeth 15 ML, Lidocaine 2% 5 ML PO ONE ×2 (15:31)
[2019-11-02] MEDS ORDERED: Pantoprazole 40 MG Vial IV SCH (15:31)
[2019-11-02] MEDS ORDERED: Nitroglycerin 0.4 MG Tab.SL SL PRN (15:32)
[2019-11-02] MEDS ORDERED: Metoclopramide 10 MG/2 ML SDV IVPUSH ONE (15:35)
--- NOTE | 2019-11-02 15:37 | PCM.HP.2 ---
H&P History of Present Illness - General Date of Service: 11/02/19 Admit Problem/Dx: Admission Diagnosis/Problem Admission Diagnosis/Problem Syncope, chest pain Source of Information: Patient, Old Records History Limitations: Reports: No Limitations - History of Present Illness Initial Comments - Free Text/Narative: This 53 year old male with significant cardiac history which includes cardiomyopathy with ICD in place, systolic HF with decreased EF of 20%, DM type 1, non obstructed CAD, postural hypotension and syncope presents to the ED today with complaints of passing out at his PCPs office. he reports he was discussing medications with Dr Diez when he started on chest pressure and pain and then passed out. He reports this pain is not like his previous cardiac pain. This pain is a heavy pressure that comes in waves. He denies other associated symptoms. He was recently discharged from [facility] after extensive evaluate last week after his ICD discharged x 2. It was noted his HR elevated to SVT 180s then to VT, ICD discharged then discharged again for continued VT and after second shock SR was established again. During his stay he was noted to have atypical chest pain, angiogram obtained which was clear. EGD obtained from Dr Valentin, which revealed erosive gastritis and gastroparesis, none of which he was told about, per patient report. He was started on Carafate. He denies other concerns now besides chest pain. Dr Guthrie was notified of syncopal episodes in the ED. ICD changes need to be made per Dr Herndon, but he felt the patient could be evaluated here. In the ED labwork WNL. Troponin negative. EKG shows no acute ischemic changes from previo us EKGs. COVID negative. He was given Morphine in the ED and this helped the pain. He was noted to have syncopal episode in the ED as well. He will be admitted for syncope and chest pain. - Related Data Allergies/Adverse Reactions: Allergies Allergy/AdvReac Type Severity Reaction Status Date / Time No Known Allergies Allergy Verified 11/02/19 11:18 Home Medications: Home Meds Isosorbide Mononitrate [Imdur] 30 mg PO DAILY 12/17/16 [History] Insulin Aspart [NovoLOG] See Protocol SUBCUT TIDMEALS #0 12/25/16 [Rx] Clopidogrel [Plavix] 75 mg PO DAILY 01/05/19 [History] Metoprolol Tartrate 25 mg PO BID 01/05/19 [History] Topiramate 25 mg PO BID 01/05/19 [History] atorvaSTATin [Lipitor] 10 mg PO DAILY 01/05/19 [History] Insulin Glarg,Human.Rec.Analog [Lantus] 25 units SUBCUT BEDTIME 06/11/19 [History] Insulin Lispro [Humalog Kwikpen U-100] 0 unit SQ ONETIME 06/11/19 [History] Losartan [Cozaar] 50 mg PO DAILY 06/11/19 [History] Nitroglycerin [Nitrostat] 0.4 mg SL .Q5MIN PRN MDD 3 06/11/19 [History] Penicillin V Potassium [Veetids] 500 mg PO Q6H #20 tab 06/25/19 [Rx] Past Medical History - Past Health History Medical/Surgical History: Denies Medical/Surgical History HEENT History: Reports: None Cardiovascular History: Reports: CAD, Heart Failure, High Cholesterol, Hypertension, [place], Pacemaker Other Cardiovascular History: Valve Problem Respiratory History: Reports: Other (See Below) Other Respiratory History: recently diagnosed with nodules in lungs Gastrointestinal History: Reports: None Genitourinary History: Reports: Chronic Renal Insuffiency Musculoskeletal History: Reports: Back Pain, Chronic Neurological History: Reports: Neuropathy, Diabetic, Other (See Below) Other Neuro History: Intracranial hypertension Psychiatric History: Reports: Anxiety, Depression Endocrine/Metabolic History: Reports: Diabetes, Type I 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 Hematologic History: Reports: None Immunologic History: Reports: None Oncologic (Cancer) History: Reports: None Dermatologic History: Reports: None - Infectious Disease History Infectious Disease History: Reports: None - Past Surgical History Head Surgeries/Procedures: Reports: None HEENT Surgical History: Reports: Oral Surgery Cardiovascular Surgical History: Reports: AICD, Coronary Artery Stent, Other (See Below) Respiratory Surgical History: Reports: None GI Surgical History: Reports: Cholecystectomy Male Surgical History: Reports: None Endocrine Surgical History: Reports: None Neurological Surgical History: Reports: None Musculoskeletal Surgical History: Reports: None Oncologic Surgical History: Reports: None Dermatological Surgical History: Reports: None Social & Family History - Family History Family Medical History: Noncontributory - Tobacco Use Smoking Status *Q: Unknown Ever Smoked - Caffeine Use Caffeine Use: Reports: None - Recreational Drug Use Recreational Drug Use: No - Living Situation & Occupation Living situation: Reports: , with Spouse, with Family (2 kids) Occupation: Unemployed H&P Review of Systems - Review of Systems: Review Of Systems: See Below Pulmonary: Denies: Shortness of Breath Cardiovascular: Reports: Chest Pain (pressure midsternal) Gastrointestinal: Reports: No Symptoms. Denies: Abdominal Pain, Black Stool, Bloody Stool, Nausea, Vomiting Genitourinary: Reports: No Symptoms. Denies: Dysuria, Frequency Musculoskeletal: Reports: No Symptoms Skin: Reports: No Symptoms Psychiatric: Reports: No Symptoms Neurological: Reports: No Symptoms Hematologic/Lymphatic: Reports: No Symptoms Immunologic: Reports: No Symptoms Exam - Exam Exam: See Below - Vital Signs Vital Signs: Last Vital Signs Temp 98.2 F 11/02/19 11:18 Pulse 79 11/02/19 13:39 Resp 16 11/02/19 13:25 BP 113/78 11/02/19 13:39 Pulse Ox 96 11/02/19 13:39 Weight: 90.718 kg - Exam General: Alert, Oriented, Cooperative, Mild Distress HEENT: Conjunctiva Clear, Mucosa Moist & [place], Posterior Pharynx Clear Lungs: Clear to Auscultation, Normal Respiratory Effort Cardiovascular: Regular Rate, Regular Rhythm GI/Abdominal Exam: Normal Bowel Sounds, Soft, Non-Tender Extremities: Normal Inspection, Normal Range of Motion, Non-Tender, No Pedal Edema Neuro Extensive - Mental Status: Alert, Oriented x3 Neuro Extensive - Motor, Sensory, Reflexes: CN II-XII Intact, Normal Gait, Normal Reflexes Psychiatric: Alert, Anxious - Patient Data Lab Results Last 24 hrs: Laboratory Results - last 24 hr 11/02/19 11/02/19 11/02/19 Range/Units 11:05 11:05 11:05 WBC 4.40 (4.0-11.0) K/uL RBC 4.51 (4.50-5.90) M/uL Hgb 14.8 (13.0-17.0) g/dL Hct 42.0 (38.0-50.0) % MCV 93.1 (80.0-98.0) fL MCH 32.8 H (27.0-32.0) pg MCHC 35.2 (31.0-37.0) g/dL RDW Std Deviation 42.5 (28.0-62.0) fl RDW Coeff of Charles 13 (11.0-15.0) % Plt Count 239 (150-400) K/uL MPV 10.50 (7.40-12.00) fL Neut % (Auto) 58.1 (48.0-80.0) % Lymph % (Auto) 27.5 (16.0-40.0) % Moca % (Auto) 10.9 (0.0-15.0) % Eos % (Auto) 3.0 (0.0-7.0) % Baso % (Auto) 0.5 (0.0-1.5) % Neut # (Auto) 2.6 (1.4-5.7) K/uL Lymph # (Auto) 1.2 (0.6-2.4) K/uL Moca # (Auto) 0.5 (0.0-0.8) K/uL Eos # (Auto) 0.1 (0.0-0.7) K/uL Baso # (Auto) 0.0 (0.0-0.1) K/uL Nucleated RBC % 0.0 /100WBC Nucleated RBCs # 0 K/uL INR 1.05 Sodium 141 (136-148) mmol/L Potassium 3.7 (3.5-5.1) mmol/L Chloride 104 (98-107) mmol/L Carbon Dioxide 26.6 (21.0-32.0) mmol/L BUN 14 (7.0-18.0) mg/dL Creatinine 1.2 (0.8-1.3) mg/dL Est Cr Clr Drug Dosing 72.66 mL/min Estimated GFR (MDRD) > 60.0 ml/min Glucose 278 H (74-106) mg/dL Calcium 8.7 (8.5-10.1) mg/dL Total Bilirubin 1.1 H (0.2-1.0) mg/dL AST 34 (15-37) IU/L ALT 49 (14-63) IU/L Alkaline Phosphatase 124 H (46-116) U/L Troponin I < 0.050 (0.000-0.056) ng/mL B-Natriuretic Peptide (<100) PG/ML Total Protein 7.0 (6.4-8.2) g/dL Albumin 4.1 (3.4-5.0) g/dL Globulin 2.9 (2.6-4.0) g/dL Albumin/Globulin Ratio 1.4 (0.9-1.6) SARS Virus RNA (PCR) (NEGATIVE) 11/02/19 11/02/19 Range/Units 11:05 13:58 WBC (4.0-11.0) K/uL RBC (4.50-5.90) M/uL Hgb (13.0-17.0) g/dL Hct (38.0-50.0) % MCV (80.0-98.0) fL MCH (27.0-32.0) pg MCHC (31.0-37.0) g/dL RDW Std Deviation (28.0-62.0) fl RDW Coeff of Charles (11.0-15.0) % Plt Count (150-400) K/uL MPV (7.40-12.00) fL Neut % (Auto) (48.0-80.0) % Lymph % (Auto) (16.0-40.0) % Moca % (Auto) (0.0-15.0) % Eos % (Auto) (0.0-7.0) % Baso % (Auto) (0.0-1.5) % Neut # (Auto) (1.4-5.7) K/uL Lymph # (Auto) (0.6-2.4) K/uL Moca # (Auto) (0.0-0.8) K/uL Eos # (Auto) (0.0-0.7) K/uL Baso # (Auto) (0.0-0.1) K/uL Nucleated RBC % /100WBC Nucleated RBCs # K/uL INR Sodium (136-148) mmol/L Potassium (3.5-5.1) mmol/L Chloride (98-107) mmol/L Carbon Dioxide (21.0-32.0) mmol/L BUN (7.0-18.0) mg/dL Creatinine (0.8-1.3) mg/dL Est Cr Clr Drug Dosing mL/min Estimated GFR (MDRD) ml/min Glucose (74-106) mg/dL Calcium (8.5-10.1) mg/dL Total Bilirubin (0.2-1.0) mg/dL AST (15-37) IU/L ALT (14-63) IU/L Alkaline Phosphatase (46-116) U/L Troponin I (0.000-0.056) ng/mL B-Natriuretic Peptide 29 (<100) PG/ML Total Protein (6.4-8.2) g/dL Albumin (3.4-5.0) g/dL Globulin (2.6-4.0) g/dL Albumin/Globulin Ratio (0.9-1.6) SARS Virus RNA (PCR) NEGATIVE (NEGATIVE) Result Diagrams: 11/02/19 11:05 11/02/19 11:05 Sepsis Event Note - Evaluation Sepsis Screening Result: No Definite Risk - Focused Exam Vital Signs: Vital Signs Temp Pulse Resp BP Pulse Ox 11/02/19 13:39 79 113/78 96 11/02/19 13:25 82 16 138/83 96 11/02/19 13:09 81 17 123/84 96 11/02/19 12:54 81 18 114/77 98 11/02/19 12:39 81 17 109/75 97 11/02/19 12:24 78 17 112/74 98 11/02/19 12:10 78 118/76 97 11/02/19 11:55 78 108/73 96 11/02/19 11:40 80 115/76 98 11/02/19 11:25 81 110/73 96 11/02/19 11:18 98.2 F 81 17 154/88 H 98 11/02/19 11:05 87 137/90 99 - Problem List (1) Atypical chest pain SNOMED Code(s): 340813252 ICD Code: R07.89 - OTHER CHEST PAIN Status: Acute Current Visit: No (2) CAD (coronary artery disease) SNOMED Code(s): 41195868 ICD Code: I25.10 - ATHSCL HEART DISEASE OF [place] CORONARY ARTERY W/O ANG PCTRS Status: Chronic Current Visit: Yes (3) Cardiomyopathy SNOMED Code(s): 00386453 ICD Code: I42.9 - CARDIOMYOPATHY, UNSPECIFIED Status: Chronic Current Visit: Yes (4) Postural hypotension SNOMED Code(s): 08897141 ICD Code: I95.1 - ORTHOSTATIC HYPOTENSION Status: Chronic Current Visit: Yes (5) DM type 1 (diabetes mellitus, type 1) SNOMED Code(s): 53120036 ICD Code: E10.9 - TYPE 1 DIABETES MELLITUS WITHOUT COMPLICATIONS Status: Chronic Current Visit: Yes Qualifiers: Diabetes mellitus complication status: with hyperglycemia Qualified Code(s ): E10.65 - Type 1 diabetes mellitus with hyperglycemia (6) Syncope SNOMED Code(s): 704010990 ICD Code: R55 - SYNCOPE AND COLLAPSE Status: Chronic Current Visit: Yes (7) History of coronary artery disease SNOMED Code(s): 085995798 ICD Code: Z86.79 - PERSONAL HISTORY OF OTHER DISEASES OF THE CIRCULATORY SYSTEM Status: Chronic Current Visit: No (8) Intracranial hypertension SNOMED Code(s): 805972922 ICD Code: G93.2 - BENIGN INTRACRANIAL HYPERTENSION Status: Chronic Current Visit: No (9) Erosive gastritis SNOMED Code(s): 7863963898885723 ICD Code: K29.60 - OTHER GASTRITIS WITHOUT BLEEDING Status: Acute Current Visit: Yes (10) Gastroparesis SNOMED Code(s): 563136365 ICD Code: K31.84 - GASTROPARESIS Status: Acute Current Visit: Yes Problem List Initiated/Reviewed/Updated: Yes Orders Last 24hrs: Active Orders 24 hr Category Date Time Status Patient Status [ADT] Routine ADT 11/02/19 13:30 Active Antiembolic Devices [RC] PER UNIT ROUTINE Care 11/02/19 15:30 Ordered Blood Glucose Check, Bedside [RC] TIDMEALS Care 11/02/19 15:29 Ordered Intake and Output [RC] QSHIFT Care 11/02/19 15:30 Ordered Orthostatic Vital Signs [RC] URGENT Care 11/02/19 14:11 Active Oxygen Therapy [RC] PRN Care 11/02/19 15:29 Ordered Telemetry Monitoring [Cardiac Monitoring] [RC] . Care 11/02/19 14:12 Active DIRECTED Up With Assistance [RC] ASDIRECTED Care 11/02/19 15:29 Ordered VTE/DVT Education [RC] PER UNIT ROUTINE Care 11/02/19 15:29 Ordered Vital Signs [RC] Q4H Care 11/02/19 15:29 Ordered [place] [employer] Diet [DIET] Diet 11/02/19 Lunch Ordered Acetaminophen [TylenoL] Med 11/02/19 15:29 Ordered 650 mg PO Q4H PRN Clopidogrel [Plavix] Med 11/03/19 09:00 Ordered 75 mg PO DAILY GI Cocktail 20 ML PO x 1 Med 11/02/19 15:31 Ordered Alum Hydrox/Mag Hydrox/Simeth [Mag-Al Plus] 15 ml Lidocaine 2% [Xylocaine 2% Viscous] 5 ml PO ONETIME Insulin Aspart [NovoLOG] Med 11/02/19 17:00 Ordered See Protocol SUBCUT TIDAC Insulin Glarg,Human.Rec.Analog Med 11/02/19 21:00 Ordered 25 units SUBCUT BEDTIME Isosorbide Mononitrate [Imdur] Med 11/03/19 09:00 Ordered 30 mg PO DAILY Losartan [Cozaar] Med 11/03/19 09:00 Ordered 50 mg PO DAILY Metoclopramide [Reglan] Med 11/02/19 15:35 Once 10 mg IVPUSH ONETIME ONE Metoprolol Tartrate [Lopressor] Med 11/02/19 21:00 Ordered 25 mg PO BID Nitroglycerin [Nitrostat] Med 11/02/19 15:32 Ordered 0.4 mg SL .Q5MIN PRN Ondansetron [Zofran] Med 11/02/19 15:29 Ordered 4 mg IVPUSH Q4H PRN Pantoprazole [ProTONIX IV] Med 11/02/19 15:31 Ordered 40 mg IV Q12HR Sodium Chloride 0.9% [Saline Flush] Med 11/02/19 15:32 Ordered 2.5 ml FLUSH ASDIRECTED PRN Topiramate Med 11/02/19 21:00 Ordered 25 mg PO BID atorvaSTATin [Lipitor] Med 11/03/19 09:00 Ordered 10 mg PO DAILY Antiembolic Hose [OM.PC] Per Unit Routine Oth 11/02/19 15:30 Ordered Saline Lock Insert [OM.PC] Routine Oth 11/02/19 15:32 Ordered Sequential Compression Device [OM.PC] Per Unit Routine Oth 11/02/19 15:30 Ordered Resuscitation Status Routine Resus Stat 11/02/19 15:29 Ordered Medication Orders Acetaminophen (Tylenol) 650 mg PO Q4H PRN PRN Reason: Pain (Mild 1-3)/fever Atorvastatin Calcium (Lipitor) 10 mg PO DAILY [place] Clopidogrel Bisulfate (Plavix) 75 mg PO DAILY [place] Al Hydroxide/Mg Hydroxide 15 (ml/ Lidocaine HCl 5 ml) 0 ml PO ONETIME ONE Stop: 11/02/19 15:32 Insulin Aspart (Novolog) 0 unit SUBCUT TIDAC [place]; Protocol Isosorbide Mononitrate (Imdur) 30 mg PO DAILY [facility] Losartan Potassium (Cozaar) 50 mg PO DAILY [place] Metoclopramide HCl (Reglan) 10 mg IVPUSH ONETIME ONE Stop: 11/02/19 15:36 Metoprolol Tartrate (Lopressor) 25 mg PO BID [facility] Nitroglycerin (Nitrostat) 0.4 mg SL .Q5MIN PRN PRN Reason: Chest Pain Non-Formulary Medication (Insulin Glarg,Human.Rec.Analog) 25 units SUBCUT BEDTIME [place] Non-Formulary Medication (Topiramate) 25 mg PO BID [place] Ondansetron HCl (Zofran) 4 mg IVPUSH Q4H PRN PRN Reason: Nausea Pantoprazole Sodium (Protonix Iv) 40 mg IV Q12HR [place] Sodium Chloride (Saline Flush) 2.5 ml FLUSH ASDIRECTED PRN PRN Reason: Keep Vein Open Assessment/Plan Comment:: This 53 year old male admitted with syncope and chest pain 1. Syncope - Had syncopal episode in my presence. Patient was having chest pain/pressure which started today, then started holding his breath. appeared to have vasovagaled, woke up approximately 15 sec later. HR continued as wel as breathing. Education provided on not holding his breath with pain, that he needs to breath through this. No discharge of ICD and no arrhythmia noted on telemetry at this time. - Will monitor, has hx of postural hypotension. - AZEB solano - FALL RISK 2. Chest pain - reports not like his usual chest pain - Trend troponins - Monitor on telemetry - Just had angiogram which was clean Oct 25 2019 - Concern pain is related to erosive gastritis/ gastroparesis 3. Erosive gastritis/ gastroparesis - GI cocktail - Protonix BID IV 40 mg - Reglan 10 mg now then every 8 hours for now - Continue Carafate QIDac and bedtime. - Morhpine PRN pain 4. Cardiomyopathy, CHF, CAD, HTN - Continue home medications, including Plavix and ASA - Will reach out to Dr Herndon otherwise no significant changes to medications. VTE prophylaxis: SCDs and ambulation Dispo: 1-2 days
[2019-11-02] MEDS: Pantoprazole 40 MG in Sodium Chloride 0.9% 10 ML IV SCH ×2 (16:09→21:37)
[2019-11-02] MEDS: Insulin Aspart 100 Units/ML 3 ML Pen SUBCUT SCH (17:04)
[2019-11-02] MEDS: Sucralfate Suspension 1 GM/10 ML Cup PO SCH ×2 (17:06→21:46)
[2019-11-02] MEDS: Morphine 4 MG/ML Syringe IVPUSH PRN ×2 (19:50→21:52)
[2019-11-02] MEDS ORDERED: Insulin Glargine,Human Rec. Analog 100 Units/ML 3 ML Pen SUBCUT SCH (21:00)
[2019-11-02] MEDS: Metoclopramide 10 MG/2 ML SDV IVPUSH SCH (21:35)
[2019-11-02] MEDS: Metoprolol Tartrate 25 MG Tab PO SCH (21:35)
[2019-11-02] MEDS: Topiramate 50 MG Tab PO SCH (21:35)
[2019-11-03] MEDS: Morphine 4 MG/ML Syringe IVPUSH PRN ×4 (02:39→09:32)
[2019-11-03] MEDS: Metoclopramide 10 MG/2 ML SDV IVPUSH SCH ×2 (03:01→09:21)
[2019-11-03] MEDS: Sucralfate Suspension 1 GM/10 ML Cup PO SCH ×3 (06:32→11:08)
[2019-11-03] MEDS: Insulin Aspart 100 Units/ML 3 ML Pen SUBCUT SCH ×2 (06:33→11:10)
[2019-11-03] MEDS ORDERED: Isosorbide Mononitrate 60 MG Tab.ER PO SCH (09:00)
[2019-11-03] MEDS ORDERED: Amiodarone 200 MG Tab PO SCH (09:00)
[2019-11-03] MEDS ORDERED: Clopidogrel 75 MG Tab PO SCH (09:00)
[2019-11-03] MEDS ORDERED: Apixaban 5 MG Tab PO SCH (09:00)
[2019-11-03] MEDS ORDERED: atorvaSTATin 10 MG Tab PO SCH (09:00)
[2019-11-03] MEDS ORDERED: Losartan 50 MG Tab PO SCH (09:00)
[2019-11-03] MEDS: Metoprolol Tartrate 25 MG Tab PO SCH (09:21)
[2019-11-03] MEDS: Pantoprazole 40 MG in Sodium Chloride 0.9% 10 ML IV SCH (09:21)
[2019-11-03] MEDS: Topiramate 50 MG Tab PO SCH (09:25)
[2019-11-03] MEDS ORDERED: Alum Hydrox/Mag Hydrox/Simeth 15 ML, Lidocaine 2% 5 ML PO PRN ×2 (10:17)
--- NOTE | 2019-11-03 12:49 | PCM.DCSUM1 ---
Discharge Summary - Hospital Course Brief History: This 53 year old male with significant cardiac history which includes cardiomyopathy with ICD in place, systolic HF with decreased EF of 20%, DM type 1, non obstructed CAD, postural hypotension and syncope presents to the ED today with complaints of passing out at his PCPs office. he reports he was discussing medications with Dr Diez when he started on chest pressure and pain and then passed out. He reports this pain is not like his previous cardiac pain. This pain is a heavy pressure that comes in waves. He denies other associated symptoms. He was recently discharged from [place] after extensive evaluate last week after his ICD discharged x 2. It was noted his HR elevated to SVT 180s then to VT, ICD discharged then discharged again for continued VT and after second shock SR was established again. During his stay he was noted to have atypical chest pain, angiogram obtained which was clear. EGD obtained from Dr Valentin, which revealed erosive gastritis and gastroparesis, none of which he was told about, per patient report. He was started on Carafate. He denies other concerns now besides chest pain. Dr Guthrie was notified of syncopal episodes in the ED. ICD changes need to be made per Dr Herndon, but he felt the patient could be evaluated here. In the ED labwork WNL. Troponin negative. EKG shows no acute ischemic changes from previous EKGs. COVID negative. He was given Morphine in the ED and this helped the pain. He was noted to have syncopal episode in the ED as well. He will be admitted for syncope and chest pain. Diagnosis: Stroke: No - Discharge Data Discharge Date: 11/03/19 Discharge Disposition: Home, Self-Care 01 Condition: Good - Referral to Home Health Primary Care Physician: Elder Diez MD - Discharge Diagnosis/Problem(s) (1) Atypical chest pain SNOMED Code(s): 957409551 ICD Code: R07.89 - OTHER CHEST PAIN Status: Acute Current Visit: No (2) CAD (coronary artery disease) SNOMED Code(s): 40698181 ICD Code: I25.10 - ATHSCL HEART DISEASE OF [place] CORONARY ARTERY W/O ANG PCTRS Status: Chronic Current Visit: Yes (3) Cardiomyopathy SNOMED Code(s): 21530828 ICD Code: I42.9 - CARDIOMYOPATHY, UNSPECIFIED Status: Chronic Current Visit: Yes (4) Postural hypotension SNOMED Code(s): 73835294 ICD Code: I95.1 - ORTHOSTATIC HYPOTENSION Status: Chronic Current Visit: Yes (5) DM type 1 (diabetes mellitus, type 1) SNOMED Code(s): 54266514 ICD Code: E10.9 - TYPE 1 DIABETES MELLITUS WITHOUT COMPLICATIONS Status: Chronic Current Visit: Yes Qualifiers: Diabetes mellitus complication status: with hyperglycemia Qualified Code(s): E10.65 - Type 1 diabetes mellitus with hyperglycemia (6) Syncope SNOMED Code(s): 733733352 ICD Code: R55 - SYNCOPE AND COLLAPSE Status: Chronic Current Visit: Yes (7) History of coronary artery disease SNOMED Code(s): 823978407 ICD Code: Z86.79 - PERSONAL HISTORY OF OTHER DISEASES OF THE CIRCULATORY SYSTEM Status: Chronic Current Visit: No (8) Intracranial hypertension SNOMED Code(s): 828031521 ICD Code: G93.2 - BENIGN INTRACRANIAL HYPERTENSION Status: Chronic Current Visit: No (9) Erosive gastritis SNOMED Code(s): 7817198988054498 ICD Code: K29.60 - OTHER GASTRITIS WITHOUT BLEEDING Status: Acute Current Visit: Yes (10) Gastroparesis SNOMED Code(s): 503611390 ICD Code: K31.84 - GASTROPARESIS Status: Acute Current Visit: Yes - Patient Summary/Data Hospital Course: admitting diagnoses: Chest pain syncope Discharge diagnoses: Chest pain0 ACS ruled out GERD, erosive gastritis Syncope- vaso vagal from pain Shirley was admitted secondary to chest pain and noted to have syncope multiple times. Syncope likely related to pain, he would hold his breath and then pass out. ACS was ruled out. No arrhythmias with syncopal episodes. BP is known to be postural hypotension. I spoke with Dr Herndon cardiology, we did make some medications changes. Stop Imdur. Continue Metoprolol, Ranexa, Losartan. Stop Plavix, continue Eliquis and Asa. Chest pain is likely related to erosive gastritis, Protonix BID was started along with GI cocktails, Carafate. He is doing better today. H pylori was negative from biospy in [place]. A1c 8.2 He was educated on eating smaller meals. Not laying down after meals. He was given Reglan during stay as gastroparesis noted on EGD, but concerning to continue this due to QTc 511. Will need further evaluation for gastroparesis and medical management. He was counseled on DM management with insulin. He is to return to ED or clinic if concerns should arise. Follow up with PCP and Cardiology as outpatient. - Patient Instructions Diet: Heart Healthy Diet, Diabetic Diet Activity: No Strenuous Activities Showering/Bathing: May Shower Notify Provider of: Fever, Increased Pain, Swelling and Redness, Drainage, Nausea and/or Vomiting - Discharge Plan *PRESCRIPTION DRUG MONITORING PROGRAM REVIEWED*: Not Applicable *COPY OF PRESCRIPTION DRUG MONITORING REPORT IN PATIENT CEZAR: Not Applicable Prescriptions/Med Rec: Sucralfate [Carafate] 1 gm PO QIDACANDBED #120 tablet Amiodarone [Cordarone] 200 mg PO DAILY #30 tablet GI Cocktail 20 ml PO Q6H PRN #1 bot PRN Reason: GERD Pantoprazole Sodium [Protonix] 40 mg PO BID #60 tablet. Home Medications: Home Meds Insulin Aspart [NovoLOG] See Protocol SUBCUT TIDMEALS #0 12/25/16 [Rx] Metoprolol Tartrate 50 mg PO BID 01/05/19 [History] Topiramate 25 mg PO BID 01/05/19 [History] atorvaSTATin [Lipitor] 10 mg PO DAILY 01/05/19 [History] Insulin Lispro [Humalog Kwikpen U-100] 1 unit SQ ASDIRECTED 06/11/19 [History] Losartan [Cozaar] 50 mg PO DAILY 06/11/19 [History] Apixaban [Eliquis] 5 mg PO BID 11/02/19 [History] DULoxetine [Cymbalta] 30 mg PO DAILY 11/02/19 [History] Ranolazine [Ranolazine ER] 500 mg PO BID 11/02/19 [History] Amiodarone [Cordarone] 200 mg PO DAILY #30 tablet 11/03/19 [Rx] GI Cocktail 20 ml PO Q6H PRN #1 bot 11/03/19 [Rx] Pantoprazole Sodium [Protonix] 40 mg PO BID #60 tablet. 11/03/19 [Rx] Sucralfate [Carafate] 1 gm PO QIDACANDBED #120 tablet 11/03/19 [Rx] Oxygen Therapy Mode: Room Air Referrals: Alan Guthrie MD [Physician] - 11/10/19 2:15 pm (Please arrive 15mins early, bring insurance info, identification card and own facemask.) Elder Diez MD [Primary Care Provider] - 11/10/19 8:30 am (Please arrive 15 minutes early with your identification, insurance cards and your own facemask.) - Discharge Summary/Plan Comment DC Time >30 min.: No - Patient Data Vitals - Most Recent: Last Vital Signs Temp 97.1 F 11/03/19 07:22 Pulse 74 11/03/19 09:21 Resp 16 11/03/19 07:22 BP 131/74 11/03/19 09:24 Pulse Ox 94 L 11/03/19 07:22 Orthostatic Blood Pressure [ 103/65 Standing] Orthostatic Blood Pressure [ 115/76 Sitting] Orthostatic Blood Pressure [ 103/73 Supine] Weight - Most Recent: 90.718 kg I&O - Last 24 hours: Intake & Output 11/02/19 11/03/19 11/03/19 22:59 06:59 14:59 Intake Total 500 Output Total 300 Balance 200 Lab Results - Last 24 hrs: Laboratory Results - last 24 hr 11/02/19 11/02/19 11/02/19 Range/Units 13:58 16:15 17:22 POC Glucose 223 H (60-110) mg/dL Troponin I < 0.050 (0.000-0.056) ng/mL SARS Virus RNA (PCR) NEGATIVE (NEGATIVE) 11/02/19 11/02/19 11/03/19 Range/Units 21:32 23:20 06:30 POC Glucose 164 H 132 H (60-110) mg/dL Troponin I < 0.050 (0.000-0.056) ng/mL SARS Virus RNA (PCR) (NEGATIVE) 11/03/19 Range/Units 11:07 POC Glucose 204 H (60-110) mg/dL Troponin I (0.000-0.056) ng/mL SARS Virus RNA (PCR) (NEGATIVE) Med Orders - Current: Current Medications Acetaminophen (Tylenol) 650 mg PO Q4H PRN PRN Reason: Pain (Mild 1-3)/fever Amiodarone HCl (Cordarone) 200 mg PO DAILY [facility] Last Admin: 11/03/19 09:25 Dose: 200 mg Documented by: Apixaban (Eliquis) 5 mg PO BID [facility] Last Admin: 11/03/19 09:20 Dose: 5 mg Documented by: Atorvastatin Calcium (Lipitor) 10 mg PO DAILY [facility] Last Admin: 11/03/19 09:19 Dose: 10 mg Documented by: Al Hydroxide/Mg Hydroxide 15 (ml/ Lidocaine HCl 5 ml) 0 ml PO Q6H PRN PRN Reason: PAIN/HEARTBURN Last Admin: 11/03/19 11:54 Dose: 1 each Documented by: Pantoprazole Sodium 40 mg/ (Sodium Chloride) 10 mls @ 300 mls/hr IV Q12HR [facility] Last Admin: 11/03/19 09:21 Dose: 300 mls/hr Documented by: Insulin Aspart (Novolog) 0 unit SUBCUT TIDAC [facility]; Protocol Last Admin: 11/03/19 11:10 Dose: 6 unit Documented by: Insulin Glargine (Lantus Solostar) 25 units SUBCUT BEDTIME [facility] Last Admin: 11/02/19 21:40 Dose: 25 units Documented by: Losartan Potassium (Cozaar) 50 mg PO DAILY [facility] Last Admin: 11/03/19 09:24 Dose: 50 mg Documented by: Metoprolol Tartrate (Lopressor) 25 mg PO BID [facility] Last Admin: 11/03/19 09:21 Dose: 25 mg Documented by: Nitroglycerin (Nitrostat) 0.4 mg SL .Q5MIN PRN PRN Reason: Chest Pain Ondansetron HCl (Zofran) 4 mg IVPUSH Q4H PRN PRN Reason: Nausea Ranolazine (Ranexa) 500 mg PO BID [facility] Last Admin: 11/03/19 09:19 Dose: 500 mg Documented by: Sodium Chloride (Saline Flush) 2.5 ml FLUSH ASDIRECTED PRN PRN Reason: Keep Vein Open Sucralfate (Carafate) 1 gm PO QIDACANDBED [facility] Last Admin: 11/03/19 11:08 Dose: 1 gm Documented by: Topiramate (Topamax) 25 mg PO BID [facility] Last Admin: 11/03/19 09:25 Dose: 25 mg Documented by: Discontinued Medications Aspirin (Aspirin) 324 mg PO ONETIME ONE Stop: 11/02/19 11:12 Last Admin: 11/02/19 11:29 Dose: 324 mg Documented by: Clopidogrel Bisulfate (Plavix) 75 mg PO DAILY [facility] Al Hydroxide/Mg Hydroxide 15 (ml/ Lidocaine HCl 5 ml) 0 ml PO ONETIME ONE Stop: 11/02/19 15:32 Last Admin: 11/02/19 16:08 Dose: 30 each Documented by: Isosorbide Mononitrate (Imdur) 30 mg PO DAILY [facility] Metoclopramide HCl (Reglan) 10 mg IVPUSH ONETIME ONE Stop: 11/02/19 15:36 Last Admin: 11/02/19 16:03 Dose: 10 mg Documented by: Metoclopramide HCl (Reglan) 10 mg IVPUSH Q6H [facility] Last Admin: 11/03/19 09:21 Dose: 10 mg Documented by: Morphine Sulfate (Morphine) 4 mg IVPUSH ONETIME ONE Stop: 11/02/19 13:38 Last Admin: 11/02/19 13:53 Dose: 4 mg Documented by: Morphine Sulfate (Morphine) 4 mg IVPUSH ONETIME ONE Stop: 11/02/19 15:48 Last Admin: 11/02/19 16:18 Dose: 2 mg Documented by: Morphine Sulfate (Morphine) 3 mg IVPUSH Q2H PRN PRN Reason: Pain Last Admin: 11/03/19 09:32 Dose: 3 mg Documented by: Ondansetron HCl (Zofran) 4 mg IVPUSH ONETIME ONE Stop: 11/02/19 13:39 Last Admin: 11/02/19 13:55 Dose: 4 mg Documented by: Sodium Chloride (Saline Flush) 10 ml FLUSH ASDIRECTED PRN PRN Reason: Keep Vein Open Last Admin: 11/02/19 15:10 Dose: 10 ml Documented by: Sodium Chloride (Saline Flush) 2.5 ml FLUSH ASDIRECTED PRN PRN Reason: Keep Vein Open Last Admin: 11/02/19 11:30 Dose: 2.5 ml Documented by: Sodium Chloride (Saline Flush) 2.5 ml FLUSH ASDIRECTED PRN PRN Reason: Keep Vein Open - Exam General: Reports: Alert, Oriented, Cooperative, No Acute Distress Lungs: Reports: Clear to Auscultation, Normal Respiratory Effort Cardiovascular: Reports: Regular Rate, Regular Rhythm GI/Abdominal Exam: Normal Bowel Sounds, Soft, Non-Tender Extremities: Normal Inspection, Normal Range of Motion, Non-Tender, No Pedal Edema Neurological: Reports: No New Focal Deficit Psy/Mental Status: Reports: Alert, Normal Affect, Normal Mood
[2019-11-03 13:36] VITALS: BP 121/70; PULSE 76
== END 2019-11-03 15:00 | disposition home or self-care (01) ==
LOC: MW.ED 10:57 → MW.MS 14:35
PROVIDERS: ADMIT Internal Medicine; ATTEND Internal Medicine
DX: R07.89 Other chest pain (principal); I25.10 Atherosclerotic heart disease of native coronary artery without angina pectoris; I42.9 Cardiomyopathy, unspecified; I95.1 Orthostatic hypotension; E10.65 Type 1 diabetes mellitus with hyperglycemia; G93.2 Benign intracranial hypertension; K25.9 Gastric ulcer, unspecified as acute or chronic, without hemorrhage or perforation; E10.43 Type 1 diabetes mellitus with diabetic autonomic (poly)neuropathy; K31.84 Gastroparesis; K21.9 Gastro-esophageal reflux disease without esophagitis; I50.20 Unspecified systolic (congestive) heart failure; I11.0 Hypertensive heart disease with heart failure; Z20.828 Contact with and (suspected) exposure to other viral communicable diseases; Z79.899 Other long term (current) drug therapy
CPT/HCPCS: 36415; 71045; 80053; 82962; 83880; 84484; 85025; 85610; 93005; 96374; 96375; 96376; 99285; A9270; C9113; G0378; J1815; J2270; J2405; J2765; J7050; U0002; 99283

== ENCOUNTER 2019-11-27 15:16 | Inpatient (IN) | payer MEDICARE, MEDICAID, OTHER ==
[2019-11-27] MEDS ORDERED: Sodium Chloride 0.9% 10 ML Syringe FLUSH PRN (15:24)
[2019-11-27] MEDS ORDERED: Sodium Chloride 0.9% 2.5 ML Syringe FLUSH PRN ×2 (15:24)
[2019-11-27] MEDS ORDERED: Metoclopramide 10 MG/2 ML SDV IVPUSH ONE (15:25)
[2019-11-27] MEDS ORDERED: diphenhydrAMINE 50 MG/ML SDV IVPUSH ONE (15:26)
[2019-11-27] MEDS: Sodium Chloride 0.9% 500 ML IV SCH (15:29)
[2019-11-27 15:53] LABS: BLOOD UREA NITROGEN,BUN 35 mg/dL (7.0-18.0); CARBON DIOXIDE,CO2 12.6 mmol/L (21.0-32.0); CHLORIDE,CL 100 mmol/L (98-107); GLUCOSE RANDOM 222 mg/dL (74-106); LIPASE 75 U/L (73-393); POTASSIUM,K 3.7 mmol/L (3.5-5.1); SODIUM,NA 141 mmol/L (136-148)
--- NOTE | 2019-11-27 16:18 | CR ---
INDICATION: Chest pain. TECHNIQUE: Chest 1 view Comparison: 11/02/2019. Findings: Cardiomediastinal silhouette is unremarkable. No focal lung consolidation, pleural effusion or pneumothorax. Left chest wall pacemaker leads are unchanged in position. Defibrillator pad over right chest wall. Impression: No acute cardiopulmonary abnormality. Dictated by Jovan Guerrero MD @ Nov 27 2019 4:13PM Signed by Dr. Jovan Guerrero @ Nov 27 2019 4:16PM
[2019-11-27] MEDS ORDERED: Ondansetron 4 MG/2 ML SDV IVPUSH ONE (16:54)
[2019-11-27] MEDS ORDERED: Sodium Chloride 0.9% 500 ML IV SCH (17:00)
--- NOTE | 2019-11-27 17:49 | EDM.PDOC ---
ED HPI GENERAL MEDICAL PROBLEM - General Chief Complaint: Chest Pain Stated Complaint: VOMITING BLOOD Time Seen by Provider: 11/27/19 16:30 - History of Present Illness INITIAL COMMENTS - FREE TEXT/NARRATIVE: History of present illness: Patient presents with vomiting for the past 2 days he states that anything he tries to take orally comes right back up he is having some epigastric abdominal pain and pain across the upper aspect of his abdomen he denies any diarrhea he is also been having chest pain which is actually chronic he has an extensive cardiac history with cardiomyopathy syncope and multiple stents and bypass surg juan. He denies any fever chills no known exposures no known bad food. Nothing seems to make it better or worse Review of systems: As per history of present illness and below otherwise all systems reviewed and negative. Past medical history: As per history of present illness and as reviewed below otherwise noncontributory. Surgical history: As per history of present illness and as reviewed below otherwise noncontributory. Social history: No reported history of drug or alcohol abuse. Family history: As per history of present illness and as reviewed below otherwise noncontributory. Physical exam: HEENT: Atraumatic, normocephalic, pupils reactive, negative for conjunctival pallor or scleral icterus, mucous membranes moist, throat clear, neck supple, nontender, trachea midline. Lungs: Clear to auscultation, breath sounds equal bilaterally, chest nontender. Heart: S1S2, regular, negative for clicks, rubs, or JVD. Abdomen: Soft, nondistended, epigastric and right upper quadrant tenderness is present. Negative for masses or hepatosplenomegaly. Negative for costovertebral tenderness. Pelvis: Stable nontender. Genitourinary: Deferred. Rectal: Deferred. Extremities: Atraumatic, negative for cords or calf pain. Neurovascular unremarkable. Neuro: Awake, alert, oriented. Cranial nerves II through XII unremarkable. Cerebellum unremarkable. Motor and sensory unremarkable throughout. Exam nonfocal. Diagnostics: [] Therapeutics: [] Impression: Vomiting and chest pain abdominal pain [] Plan: Antinausea medicines careful rehydration cardiac work-up abdominal CT scan. [] Definitive disposition and diagnosis as appropriate pending reevaluation and review of above. Chest Pain Score (Numeric/FACES): 8 - Related Data Allergies Allergy/AdvReac Type Severity Reaction Status Date / Time No Known Allergies Allergy Verified 11/27/19 22:34 Home Meds: Home Meds Insulin Aspart [NovoLOG] See Protocol SUBCUT TIDMEALS #0 12/25/16 [Rx] Metoprolol Tartrate 50 mg PO BID 01/05/19 [History] Topiramate 25 mg PO BID 01/05/19 [History] atorvaSTATin [Lipitor] 10 mg PO DAILY 01/05/19 [History] Insulin Lispro [Humalog Kwikpen U-100] 1 unit SQ ASDIRECTED 06/11/19 [History] Losartan [Cozaar] 50 mg PO DAILY 06/11/19 [History] Apixaban [Eliquis] 5 mg PO BID 11/02/19 [History] DULoxetine [Cymbalta] 30 mg PO DAILY 11/02/19 [History] Ranolazine [Ranolazine ER] 500 mg PO BID 11/02/19 [History] GI Cocktail 20 ml PO Q6H PRN #1 bot 11/03/19 [Rx] Pantoprazole Sodium [Protonix] 40 mg PO BID #60 tablet. 11/03/19 [Rx] Amiodarone [Cordarone] 200 mg PO BID 11/27/19 [History] Aspirin 81 tab PO DAILY 11/27/19 [History] Clopidogrel [Plavix] 75 mg PO DAILY 11/27/19 [History] Isosorbide Mononitrate [Isosorbide Mononitrate ER] 30 mg PO DAILY 11/27/19 [History] Potassium Chloride 10 meq PO BID 11/27/19 [History] Sucralfate [Carafate] 1 gm PO QID 11/27/19 [History] Past Medical History - Past Health History Medical/Surgical History: Denies Medical/Surgical History HEENT History: Reports: None Cardiovascular History: Reports: CAD, Heart Failure, High Cholesterol, Hypertension, ND, Pacemaker Other Cardiovascular History: Valve Problem Respiratory History: Reports: Other (See Below) Other Respiratory History: recently diagnosed with nodules in lungs Gastrointestinal History: Reports: None Genitourinary History: Reports: Chronic Renal Insuffiency Musculoskeletal History: Reports: Back Pain, Chronic Neurological History: Reports: Neuropathy, Diabetic, Other (See Below) Other Neuro History: Intracranial hypertension Psychiatric History: Reports: Anxiety, Depression Endocrine/Metabolic History: Reports: Diabetes, Type I 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: None Hematologic History: Reports: None Immunologic History: Reports: None Oncologic (Cancer) History: Reports: None Dermatologic History: Reports: None - Infectious Disease History Infectious Disease History: Reports: None - Past Surgical History Head Surgeries/Procedures: Reports: None HEENT Surgical History: Reports: Oral Surgery Cardiovascular Surgical History: Reports: AICD, Coronary Artery Stent, Other (See Below) Respiratory Surgical History: Reports: None GI Surgical History: Reports: Cholecystectomy Male Surgical History: Reports: None Endocrine Surgical History: Reports: None Neurological Surgical History: Reports: None Musculoskeletal Surgical History: Reports: None Oncologic Surgical History: Reports: None Dermatological Surgical History: Reports: None Social & Family History - Family History Family Medical History: Noncontributory - Tobacco Use Smoking Status *Q: Never Smoker - Caffeine Use Caffeine Use: Reports: None - Recreational Drug Use Recreational Drug Use: No - Living Situation & Occupation Living situation: Reports: , with Spouse, with Family (2 kids) Occupation: Unemployed ED ROS GENERAL - Review of Systems Review Of Systems: See Below ED EXAM, GENERAL - Physical Exam Exam: See Below EKG INTERPRETATION EKG Interpretation Comments: EKG is paced rhythm 126 bpm tachycardic left bundle branch block which is old read and interpreted by me Course - Vital Signs Text/Narrative:: I discussed the case with Dr. Meehan over at 6:20 PM she would like a second troponin test completed prior to accepting the patient for admission Patient was reassessed the vomiting has stopped and the nausea has improved a great deal he is feeling better. Last Recorded V/S: Last Vital Signs Temp 37.1 C 11/28/19 07:00 Pulse 87 11/28/19 09:07 Resp 18 11/28/19 07:00 BP 103/66 11/28/19 09:07 Pulse Ox 100 11/28/19 07:00 - Orders/Labs/Meds Orders: Active Orders 24 hr Category Date Time Status Admission Status [Patient Status] [ADT] Routine ADT 11/28/19 09:58 Active Admission Status [Patient Status] [ADT] Stat ADT 11/27/19 19:20 Active Transfer Patient (Change bed) [ADT] Routine ADT 11/28/19 09:20 Ordered Accu Check [Blood Glucose Check, Bedside] [RC] Q6H Care 11/28/19 06:00 Active Ambulate [RC] ASDIRECTED Care 11/27/19 19:29 Active Antiembolic Devices [RC] PER UNIT ROUTINE Care 11/27/19 19:30 Active Cardiac Monitoring [RC] Q8H Care 11/27/19 15:24 Active Communication Order [RC] PRN Care 11/28/19 07:08 Active Communication Order [RC] STAT Care 11/28/19 07:05 Active EKG 12 Lead [EKG Documentation Completion] [RC] STAT Care 11/28/19 02:28 Active EKG Documentation Completion [RC] STAT Care 11/27/19 15:24 Active Welch Catheter Insertion [Insert Urinary Catheter] [OM. Care 11/28/19 09:15 Ordered PC] Q24H Insert Welch Catheter [Insert Urinary Catheter] [OM.PC] Care 11/28/19 03:15 Ordered Q24H Oxygen Therapy [RC] PRN Care 11/27/19 19:29 Active Pulse Oximetry [RC] ASDIRECTED Care 11/27/19 15:24 Active RT Aerosol Therapy [RC] ASDIRECTED Care 11/27/19 19:31 Active Telemetry Monitoring [Cardiac Monitoring] [RC] . Care 11/27/19 20:19 Active DIRECTED Urinary Catheter Assessment [RC] ASDIRECTED Care 11/28/19 03:11 Active Urinary Catheter Assessment [RC] ASDIRECTED Care 11/28/19 09:16 Active VTE/DVT Education [RC] PER UNIT ROUTINE Care 11/27/19 19:29 Active Vital Signs [RC] Q4H Care 11/27/19 19:29 Active NPO [Nothing Per Oral Diet] [DIET] Diet 11/28/19 Breakfast Active BASIC METABOLIC PANEL,BMP [CHEM] Routine Lab 11/28/19 14:00 Received CULTURE BLOOD [BC] Stat Lab 11/27/19 20:00 Received CULTURE BLOOD [BC] Stat Lab 11/27/19 20:10 Received H PYLORI STOOL ANTIGEN [MREF] Routine Lab 11/27/19 23:01 Ordered Albuterol/Ipratropium [DuoNeb 3.0-0.5 MG/3 ML] Med 11/27/19 19:29 Active 3 ml NEB Q4HRRT PRN Amiodarone [Cordarone] Med 11/28/19 09:00 Active 200 mg PO BID Aspirin Med 11/28/19 09:00 Active 81 mg PO DAILY Clopidogrel [Plavix] Med 11/28/19 09:00 Active 75 mg PO DAILY DULoxetine [Cymbalta] Med 11/28/19 09:00 Active 30 mg PO DAILY Insulin Aspart [NovoLOG] Med 11/28/19 07:30 Active See Protocol SUBCUT TIDAC Insulin Regular, Human [NovoLIN R] 100 unit Med 11/28/19 09:30 Active Sodium Chloride 0.9% [Normal Saline] 99 ml IV TITRATE Isosorbide Mononitrate [Imdur] Med 11/28/19 09:00 Active 30 mg PO DAILY Lactated Ringers [Ringers, Lactated] 1,000 ml Med 11/27/19 19:30 Active IV ASDIRECTED Metoprolol Tartrate [Lopressor] Med 11/28/19 09:00 Active 50 mg PO BID Morphine Med 11/27/19 23:02 Active 2 mg IVPUSH Q2H PRN Ondansetron [Zofran] Med 11/27/19 19:29 Active 4 mg IVPUSH Q4H PRN Pantoprazole [ProTONIX IV] 40 mg Med 11/27/19 23:01 Active Sodium Chloride 0.9% [Normal Saline] 10 ml IV Q12H Piperacillin/Tazobactam [Piperacil-Tazobact] 3.375 gm Med 11/27/19 19:45 Active Sodium Chloride 0.9% [Normal Saline] 50 ml IV Q8H Ranolazine [Ranexa] Med 11/28/19 09:00 Active 500 mg PO BID Sodium Chloride 0.9% [Normal Saline] 500 ml Med 11/27/19 15:30 Active IV .BOLUS Sodium Chloride 0.9% [Normal Saline] 500 ml Med 11/27/19 17:00 Active IV .BOLUS Sodium Chloride 0.9% [Saline Flush] Med 11/27/19 15:24 Active 10 ml FLUSH ASDIRECTED PRN Sodium Chloride 0.9% [Saline Flush] Med 11/27/19 15:24 Active 2.5 ml FLUSH ASDIRECTED PRN Sodium Chloride 0.9% [Saline Flush] Med 11/27/19 15:24 Active 2.5 ml FLUSH ASDIRECTED PRN Sucralfate [Carafate] Med 11/28/19 00:00 Active 1 gm PO QID Topiramate [Topamax] Med 11/28/19 09:00 Active 25 mg PO BID atorvaSTATin [Lipitor] Med 11/28/19 09:00 Active 10 mg PO DAILY Blood Culture x2 Reflex Set [OM.PC] Stat Ot 11/27/19 19:37 Ordered Saline Lock Insert [OM.PC] Stat Ot 11/27/19 15:24 Ordered Sequential Compression Device [OM.PC] Per Unit Routine Ot 11/27/19 19:29 Ordered Medication Orders Albuterol/Ipratropium (Duoneb 3.0-0.5 Mg/3 Ml) 3 ml NEB Q4HRRT PRN PRN Reason: Shortness Of Breath/wheezing Amiodarone HCl (Cordarone) 200 mg PO BID [facility] Last Admin: 11/28/19 09:07 Dose: 200 mg Documented by: VERONA Aspirin (Aspirin) 81 mg PO DAILY [facility] Last Admin: 11/28/19 13:30 Dose: Not Given Documented by: BILL Atorvastatin Calcium (Lipitor) 10 mg PO DAILY [facility] Last Admin: 11/28/19 13:31 Dose: Not Given Documented by: BILL Clopidogrel Bisulfate (Plavix) 75 mg PO DAILY [facility] Last Admin: 11/28/19 13:32 Dose: Not Given Documented by: BILL Duloxetine HCl (Cymbalta) 30 mg PO DAILY [facility] Last Admin: 11/28/19 13:31 Dose: Not Given Documented by: BILL Sodium Chloride (Normal Saline) 500 mls @ 999 mls/hr IV .BOLUS [facility] Last Admin: 11/27/19 15:29 Dose: 999 mls/hr Documented by: ALBERTO Sodium Chloride (Normal Saline) 500 mls @ 999 mls/hr IV .BOLUS [facility] Last Admin: 11/27/19 17:01 Dose: 999 mls/hr Documented by: ALBERTO Lactated Ringer's (Ringers, Lactated) 1,000 mls @ 125 mls/hr IV ASDIRECTED [facility] Last Admin: 11/28/19 06:43 Dose: 125 mls/hr Documented by: Infusion: 11/28/19 06:00 Dose: 125 mls/hr Documented by: Admin: 11/27/19 22:00 Dose: 125 mls/hr Documented by: ZOHRA Piperacillin Sod/Tazobactam (Sod 3.375 gm/ Sodium Chloride) 50 mls @ 100 mls/hr IV Q8H [facility] Last Admin: 11/28/19 12:10 Dose: 100 mls/hr Documented by: Infusion: 11/28/19 03:32 Dose: 100 mls/hr Documented by: Admin: 11/28/19 03:02 Dose: 100 mls/hr Documented by: Infusion: 11/27/19 21:42 Dose: 100 mls/hr Documented by: Admin: 11/27/19 21:12 Dose: 100 mls/hr Documented by: ZOHRA Pantoprazole Sodium 40 mg/ (Sodium Chloride) 10 mls @ 300 mls/hr IV Q12H [facility] Last Admin: 11/28/19 10:17 Dose: 300 mls/hr Documented by: Infusion: 11/27/19 23:47 Dose: 300 mls/hr Documented by: Admin: 11/27/19 23:45 Dose: 300 mls/hr Documented by: ZOHRA Insulin Human Regular 100 unit (/ Sodium Chloride) 100 mls @ 6 mls/hr IV TITRATE [place]EPHANIA; Protocol Last Titration: 11/28/19 14:10 Dose: 0.5 units/hr, 0.5 mls/hr Documented by: BILL Cosigned by: BEL Titration: 11/28/19 13:03 Dose: 1 units/hr, 1 mls/hr Documented by: BILL Cosigned by: PILAR Titration: 11/28/19 12:11 Dose: 2 units/hr, 2 mls/hr Documented by: JANENEIGLAGUILAR Cosigned by: SEMICHR Titration: 11/28/19 11:00 Dose: 2 units/hr, 2 mls/hr Documented by: JANENEIGLAGUILAR Cosigned by: BEL Admin: 11/28/19 10:00 Dose: 6 units/hr, 6 mls/hr Documented by: BILL Cosigned by: BEL Insulin Aspart (Novolog) 0 unit SUBCUT TIDAC [facility]IA; Protocol Last Admin: 11/28/19 12:44 Dose: Not Given Documented by: Admin: 11/28/19 08:30 Dose: 6 units Documented by: Admin: 11/28/19 07:01 Dose: 10 units Documented by: ZOHRA Isosorbide Mononitrate (Imdur) 30 mg PO DAILY [facility] Last Admin: 11/28/19 13:31 Dose: Not Given Documented by: BILL Metoprolol Tartrate (Lopressor) 50 mg PO BID [facility] Last Admin: 11/28/19 09:07 Dose: 50 mg Documented by: VERONA Morphine Sulfate (Morphine) 2 mg IVPUSH Q2H PRN PRN Reason: Pain (severe 7-10) Stop: 11/28/19 19:30 Last Admin: 11/28/19 08:45 Dose: 2 mg Documented by: Admin: 11/28/19 02:24 Dose: 2 mg Documented by: ZOHRA Ondansetron HCl (Zofran) 4 mg IVPUSH Q4H PRN PRN Reason: Nausea/Vomiting Last Admin: 11/28/19 00:23 Dose: 4 mg Documented by: ZOHRA Ranolazine (Ranexa) 500 mg PO BID [facility] Last Admin: 11/28/19 13:33 Dose: Not Given Documented by: BILL Sodium Chloride (Saline Flush) 10 ml FLUSH ASDIRECTED PRN PRN Reason: Keep Vein Open Last Admin: 11/27/19 15:35 Dose: 10 ml Documented by: ALBERTO Sodium Chloride (Saline Flush) 2.5 ml FLUSH ASDIRECTED PRN PRN Reason: Keep Vein Open Last Admin: 11/27/19 15:35 Dose: 2.5 ml Documented by: ALBERTO Sodium Chloride (Saline Flush) 2.5 ml FLUSH ASDIRECTED PRN PRN Reason: Keep Vein Open Last Admin: 11/27/19 15:35 Dose: 2.5 ml Documented by: ALBERTO Sucralfate (Carafate) 1 gm PO QID [facility] Last Admin: 11/28/19 06:44 Dose: 1 gm Documented by: Admin: 11/27/19 23:48 Dose: 1 gm Documented by: ZOHRA Topiramate (Topamax) 25 mg PO BID [facility] Last Admin: 11/28/19 13:33 Dose: Not Given Documented by: BILL Labs: Laboratory Tests 11/27/19 11/27/1920 Range/Units 15:20 15:20 15:20 WBC 17.33 H (4.0-11.0) K/uL RBC 5.20 (4.50-5.90) M/uL Hgb 17.2 H (13.0-17.0) g/dL Hct 47.8 (38.0-50.0) % MCV 91.9 (80.0-98.0) fL MCH 33.1 H (27.0-32.0) pg MCHC 36.0 (31.0-37.0) g/dL RDW Std Deviation 42.0 (28.0-62.0) fl RDW Coeff of Charles 13 (11.0-15.0) % Plt Count 303 (150-400) K/uL MPV 10.40 (7.40-12.00) fL Neut % (Auto) (48.0-80.0) % Lymph % (Auto) (16.0-40.0) % [place] % (Auto) (0.0-15.0) % Eos % (Auto) (0.0-7.0) % Baso % (Auto) (0.0-1.5) % Neut # (Auto) (1.4-5.7) K/uL Lymph # (Auto) (0.6-2.4) K/uL [place] # (Auto) (0.0-0.8) K/uL Eos # (Auto) (0.0-0.7) K/uL Baso # (Auto) (0.0-0.1) K/uL Add Manual Diff YES Neutrophils % (Manual) 84 H (48.0-80.0) % Lymphocytes % (Manual) 8 L (16.0-40.0) % Monocytes % (Manual) 8 (0.0-15.0) % Nucleated RBC % 0.0 /100WBC Absolute Seg Neuts 14.6 H (1.4-5.7) Lymphocytes # (Manual) 1.4 (0.6-2.4) Monocytes # (Manual) 1.4 H (0.0-0.8) Nucleated RBCs # 0 K/uL INR 1.05 Lactate (0.20-2.00) mmol/L Sodium 141 (136-148) mmol/L Potassium 3.7 (3.5-5.1) mmol/L Chloride 100 (98-107) mmol/L Carbon Dioxide 12.6 L (21.0-32.0) mmol/L BUN 35 H (7.0-18.0) mg/dL Creatinine 2.1 H (0.8-1.3) mg/dL Est Cr Clr Drug Dosing 46.75 mL/min Estimated GFR (MDRD) 33.1 ml/min Glucose 222 H (74-106) mg/dL POC Glucose (60-110) mg/dL Hemoglobin A1c (4.5-6.2) % Calcium 9.7 (8.5-10.1) mg/dL Phosphorus (2.6-4.7) mg/dL Magnesium (1.8-2.4) mg/dL Total Bilirubin 1.6 H (0.2-1.0) mg/dL AST 29 (15-37) IU/L ALT 50 (14-63) IU/L Alkaline Phosphatase 114 (46-116) U/L Troponin I < 0.050 (0.000-0.056) ng/mL Total Protein 8.1 (6.4-8.2) g/dL Albumin 5.1 H (3.4-5.0) g/dL Globulin 3.0 (2.6-4.0) g/dL Albumin/Globulin Ratio 1.7 H (0.9-1.6) Lipase 75 (73-393) U/L Urine Color Urine Appearance Urine pH (5.0-8.0) Ur Specific [place] (1.001-1.035) Urine Protein (NEGATIVE) mg/dL Urine Glucose (UA) (NEGATIVE) mg/dL Urine Ketones (NEGATIVE) mg/dL Urine Occult Blood (NEGATIVE) Urine Nitrite (NEGATIVE) Urine Bilirubin (NEGATIVE) Urine Ictotest Urine Urobilinogen (<2.0) EU/dL Ur Leukocyte Esterase (NEGATIVE) U Hyaline Cast (Auto) (0-2/LPF) Urine RBC (0-2/HPF) Urine WBC (0-5/HPF) Ur Epithelial Cells (NONE-FEW) Urine Bacteria (NEGATIVE) Urine Mucus (NONE-MOD) SARS-CoV-2 RNA (ABBIE) (NEGATIVE) 11/27/19 11/27/19 11/27/19 Range/Units 17:24 17:25 18:45 WBC (4.0-11.0) K/uL RBC (4.50-5.90) M/uL Hgb (13.0-17.0) g/dL Hct (38.0-50.0) % MCV (80.0-98.0) fL MCH (27.0-32.0) pg MCHC (31.0-37.0) g/dL RDW Std Deviation (28.0-62.0) fl RDW Coeff of Charles (11.0-15.0) % Plt Count (150-400) K/uL MPV (7.40-12.00) fL Neut % (Auto) (48.0-80.0) % Lymph % (Auto) (16.0-40.0) % [place] % (Auto) (0.0-15.0) % Eos % (Auto) (0.0-7.0) % Baso % (Auto) (0.0-1.5) % Neut # (Auto) (1.4-5.7) K/uL Lymph # (Auto) (0.6-2.4) K/uL [place] # (Auto) (0.0-0.8) K/uL Eos # (Auto) (0.0-0.7) K/uL Baso # (Auto) (0.0-0.1) K/uL Add Manual Diff Neutrophils % (Manual) (48.0-80.0) % Lymphocytes % (Manual) (16.0-40.0) % Monocytes % (Manual) (0.0-15.0) % Nucleated RBC % /100WBC Absolute Seg Neuts (1.4-5.7) Lymphocytes # (Manual) (0.6-2.4) Monocytes # (Manual) (0.0-0.8) Nucleated RBCs # K/uL INR Lactate 2.8 H* (0.20-2.00) mmol/L Sodium (136-148) mmol/L Potassium (3.5-5.1) mmol/L Chloride (98-107) mmol/L Carbon Dioxide (21.0-32.0) mmol/L BUN (7.0-18.0) mg/dL Creatinine (0.8-1.3) mg/dL Est Cr Clr Drug Dosing mL/min Estimated GFR (MDRD) ml/min Glucose (74-106) mg/dL POC Glucose (60-110) mg/dL Hemoglobin A1c (4.5-6.2) % Calcium (8.5-10.1) mg/dL Phosphorus (2.6-4.7) mg/dL Magnesium (1.8-2.4) mg/dL Total Bilirubin (0.2-1.0) mg/dL AST (15-37) IU/L ALT (14-63) IU/L Alkaline Phosphatase (46-116) U/L Troponin I < 0.050 (0.000-0.056) ng/mL Total Protein (6.4-8.2) g/dL Albumin (3.4-5.0) g/dL Globulin (2.6-4.0) g/dL Albumin/Globulin Ratio (0.9-1.6) Lipase (73-393) U/L Urine Color Urine Appearance Urine pH (5.0-8.0) Ur Specific [place] (1.001-1.035) Urine Protein (NEGATIVE) mg/dL Urine Glucose (UA) (NEGATIVE) mg/dL Urine Ketones (NEGATIVE) mg/dL Urine Occult Blood (NEGATIVE) Urine Nitrite (NEGATIVE) Urine Bilirubin (NEGATIVE) Urine Ictotest Urine Urobilinogen (<2.0) EU/dL Ur Leukocyte Esterase (NEGATIVE) U Hyaline Cast (Auto) (0-2/LPF) Urine RBC (0-2/HPF) Urine WBC (0-5/HPF) Ur Epithelial Cells (NONE-FEW) Urine Bacteria (NEGATIVE) Urine Mucus (NONE-MOD) SARS-CoV-2 RNA (ABBIE) NEGATIVE (NEGATIVE) 11/27/19 11/27/19 11/27/19 Range/Units 20:55 20:55 23:58 WBC (4.0-11.0) K/uL RBC (4.50-5.90) M/uL Hgb (13.0-17.0) g/dL Hct (38.0-50.0) % MCV (80.0-98.0) fL MCH (27.0-32.0) pg MCHC (31.0-37.0) g/dL RDW Std Deviation (28.0-62.0) fl RDW Coeff of Charles (11.0-15.0) % Plt Count (150-400) K/uL MPV (7.40-12.00) fL Neut % (Auto) (48.0-80.0) % Lymph % (Auto) (16.0-40.0) % [place] % (Auto) (0.0-15.0) % Eos % (Auto) (0.0-7.0) % Baso % (Auto) (0.0-1.5) % Neut # (Auto) (1.4-5.7) K/uL Lymph # (Auto) (0.6-2.4) K/uL [place] # (Auto) (0.0-0.8) K/uL Eos # (Auto) (0.0-0.7) K/uL Baso # (Auto) (0.0-0.1) K/uL Add Manual Diff Neutrophils % (Manual) (48.0-80.0) % Lymphocytes % (Manual) (16.0-40.0) % Monocytes % (Manual) (0.0-15.0) % Nucleated RBC % /100WBC Absolute Seg Neuts (1.4-5.7) Lymphocytes # (Manual) (0.6-2.4) Monocytes # (Manual) (0.0-0.8) Nucleated RBCs # K/uL INR Lactate 1.6 (0.20-2.00) mmol/L Sodium (136-148) mmol/L Potassium (3.5-5.1) mmol/L Chloride (98-107) mmol/L Carbon Dioxide (21.0-32.0) mmol/L BUN (7.0-18.0) mg/dL Creatinine (0.8-1.3) mg/dL Est Cr Clr Drug Dosing mL/min Estimated GFR (MDRD) ml/min Glucose (74-106) mg/dL POC Glucose 242 H (60-110) mg/dL Hemoglobin A1c 8.4 H (4.5-6.2) % Calcium (8.5-10.1) mg/dL Phosphorus (2.6-4.7) mg/dL Magnesium (1.8-2.4) mg/dL Total Bilirubin (0.2-1.0) mg/dL AST (15-37) IU/L ALT (14-63) IU/L Alkaline Phosphatase (46-116) U/L Troponin I (0.000-0.056) ng/mL Total Protein (6.4-8.2) g/dL Albumin (3.4-5.0) g/dL Globulin (2.6-4.0) g/dL Albumin/Globulin Ratio (0.9-1.6) Lipase (73-393) U/L Urine Color Urine Appearance Urine pH (5.0-8.0) Ur Specific [place] (1.001-1.035) Urine Protein (NEGATIVE) mg/dL Urine Glucose (UA) (NEGATIVE) mg/dL Urine Ketones (NEGATIVE) mg/dL Urine Occult Blood (NEGATIVE) Urine Nitrite (NEGATIVE) Urine Bilirubin (NEGATIVE) Urine Ictotest Urine Urobilinogen (<2.0) EU/dL Ur Leukocyte Esterase (NEGATIVE) U Hyaline Cast (Auto) (0-2/LPF) Urine RBC (0-2/HPF) Urine WBC (0-5/HPF) Ur Epithelial Cells (NONE-FEW) Urine Bacteria (NEGATIVE) Urine Mucus (NONE-MOD) SARS-CoV-2 RNA (ABBIE) (NEGATIVE) 11/28/19 11/28/19 11/28/19 Range/Units 00:15 02:35 06:05 WBC 12.87 H (4.0-11.0) K/uL RBC 4.38 L (4.50-5.90) M/uL Hgb 14.4 (13.0-17.0) g/dL Hct 41.5 (38.0-50.0) % MCV 94.7 (80.0-98.0) fL MCH 32.9 H (27.0-32.0) pg MCHC 34.7 (31.0-37.0) g/dL RDW Std Deviation 44.8 (28.0-62.0) fl RDW Coeff of Charles 13 (11.0-15.0) % Plt Count 253 (150-400) K/uL MPV 10.30 (7.40-12.00) fL Neut % (Auto) 87.1 H (48.0-80.0) % Lymph % (Auto) 7.7 L (16.0-40.0) % [place] % (Auto) 5.1 (0.0-15.0) % Eos % (Auto) 0.0 (0.0-7.0) % Baso % (Auto) 0.1 (0.0-1.5) % Neut # (Auto) 11.2 H (1.4-5.7) K/uL Lymph # (Auto) 1.0 (0.6-2.4) K/uL [place] # (Auto) 0.7 (0.0-0.8) K/uL Eos # (Auto) 0.0 (0.0-0.7) K/uL Baso # (Auto) 0.0 (0.0-0.1) K/uL Add Manual Diff Neutrophils % (Manual) (48.0-80.0) % Lymphocytes % (Manual) (16.0-40.0) % Monocytes % (Manual) (0.0-15.0) % Nucleated RBC % 0.0 /100WBC Absolute Seg Neuts (1.4-5.7) Lymphocytes # (Manual) (0.6-2.4) Monocytes # (Manual) (0.0-0.8) Nucleated RBCs # 0 K/uL INR Lactate (0.20-2.00) mmol/L Sodium (136-148) mmol/L Potassium (3.5-5.1) mmol/L Chloride (98-107) mmol/L Carbon Dioxide (21.0-32.0) mmol/L BUN (7.0-18.0) mg/dL Creatinine (0.8-1.3) mg/dL Est Cr Clr Drug Dosing mL/min Estimated GFR (MDRD) ml/min Glucose (74-106) mg/dL POC Glucose (60-110) mg/dL Hemoglobin A1c (4.5-6.2) % Calcium (8.5-10.1) mg/dL Phosphorus (2.6-4.7) mg/dL Magnesium (1.8-2.4) mg/dL Total Bilirubin (0.2-1.0) mg/dL AST (15-37) IU/L ALT (14-63) IU/L Alkaline Phosphatase (46-116) U/L Troponin I < 0.050 (0.000-0.056) ng/mL Total Protein (6.4-8.2) g/dL Albumin (3.4-5.0) g/dL Globulin (2.6-4.0) g/dL Albumin/Globulin Ratio (0.9-1.6) Lipase (73-393) U/L Urine Color YELLOW Urine Appearance CLEAR Urine pH 5.5 (5.0-8.0) Ur Specific [place] >= 1.030 (1.001-1.035) Urine Protein TRACE H (NEGATIVE) mg/dL Urine Glucose (UA) 100 H (NEGATIVE) mg/dL Urine Ketones >=80 (NEGATIVE) mg/dL Urine Occult Blood NEGATIVE (NEGATIVE) Urine Nitrite NEGATIVE (NEGATIVE) Urine Bilirubin MODERATE H (NEGATIVE) Urine Ictotest NEGATIVE Urine Urobilinogen 0.2 (<2.0) EU/dL Ur Leukocyte Esterase NEGATIVE (NEGATIVE) U Hyaline Cast (Auto) 4-8 (0-2/LPF) Urine RBC 0-2 (0-2/HPF) Urine WBC 0-1 (0-5/HPF) Ur Epithelial Cells RARE (NONE-FEW) Urine Bacteria FEW (NEGATIVE) Urine Mucus LIGHT (NONE-MOD) SARS-CoV-2 RNA (ABBIE) (NEGATIVE) 11/28/19 11/28/19 11/28/19 Range/Units 06:05 06:51 07:54 WBC (4.0-11.0) K/uL RBC (4.50-5.90) M/uL Hgb (13.0-17.0) g/dL Hct (38.0-50.0) % MCV (80.0-98.0) fL MCH (27.0-32.0) pg MCHC (31.0-37.0) g/dL RDW Std Deviation (28.0-62.0) fl RDW Coeff of Charles (11.0-15.0) % Plt Count (150-400) K/uL MPV (7.40-12.00) fL Neut % (Auto) (48.0-80.0) % Lymph % (Auto) (16.0-40.0) % [place] % (Auto) (0.0-15.0) % Eos % (Auto) (0.0-7.0) % Baso % (Auto) (0.0-1.5) % Neut # (Auto) (1.4-5.7) K/uL Lymph # (Auto) (0.6-2.4) K/uL [place] # (Auto) (0.0-0.8) K/uL Eos # (Auto) (0.0-0.7) K/uL Baso # (Auto) (0.0-0.1) K/uL Add Manual Diff Neutrophils % (Manual) (48.0-80.0) % Lymphocytes % (Manual) (16.0-40.0) % Monocytes % (Manual) (0.0-15.0) % Nucleated RBC % /100WBC Absolute Seg Neuts (1.4-5.7) Lymphocytes # (Manual) (0.6-2.4) Monocytes # (Manual) (0.0-0.8) Nucleated RBCs # K/uL INR Lactate (0.20-2.00) mmol/L Sodium 138 (136-148) mmol/L Potassium 5.0 (3.5-5.1) mmol/L Chloride 102 (98-107) mmol/L Carbon Dioxide 10.4 L (21.0-32.0) mmol/L BUN 26 H (7.0-18.0) mg/dL Creatinine 1.8 H (0.8-1.3) mg/dL Est Cr Clr Drug Dosing 54.55 mL/min Estimated GFR (MDRD) 39.5 ml/min Glucose 509 H* (74-106) mg/dL POC Glucose > 500 H 449 H (60-110) mg/dL Hemoglobin A1c (4.5-6.2) % Calcium 8.5 (8.5-10.1) mg/dL Phosphorus 5.1 H (2.6-4.7) mg/dL Magnesium 2.0 (1.8-2.4) mg/dL Total Bilirubin (0.2-1.0) mg/dL AST (15-37) IU/L ALT (14-63) IU/L Alkaline Phosphatase (46-116) U/L Troponin I (0.000-0.056) ng/mL Total Protein (6.4-8.2) g/dL Albumin (3.4-5.0) g/dL Globulin (2.6-4.0) g/dL Albumin/Globulin Ratio (0.9-1.6) Lipase (73-393) U/L Urine Color Urine Appearance Urine pH (5.0-8.0) Ur Specific [place] (1.001-1.035) Urine Protein (NEGATIVE) mg/dL Urine Glucose (UA) (NEGATIVE) mg/dL Urine Ketones (NEGATIVE) mg/dL Urine Occult Blood (NEGATIVE) Urine Nitrite (NEGATIVE) Urine Bilirubin (NEGATIVE) Urine Ictotest Urine Urobilinogen (<2.0) EU/dL Ur Leukocyte Esterase (NEGATIVE) U Hyaline Cast (Auto) (0-2/LPF) Urine RBC (0-2/HPF) Urine WBC (0-5/HPF) Ur Epithelial Cells (NONE-FEW) Urine Bacteria (NEGATIVE) Urine Mucus (NONE-MOD) SARS-CoV-2 RNA (ABBIE) (NEGATIVE) 11/28/19 11/28/19 Range/Units 08:28 09:58 WBC (4.0-11.0) K/uL RBC (4.50-5.90) M/uL Hgb (13.0-17.0) g/dL Hct (38.0-50.0) % MCV (80.0-98.0) fL MCH (27.0-32.0) pg MCHC (31.0-37.0) g/dL RDW Std Deviation (28.0-62.0) fl RDW Coeff of Charles (11.0-15.0) % Plt Count (150-400) K/uL MPV (7.40-12.00) fL Neut % (Auto) (48.0-80.0) % Lymph % (Auto) (16.0-40.0) % [place] % (Auto) (0.0-15.0) % Eos % (Auto) (0.0-7.0) % Baso % (Auto) (0.0-1.5) % Neut # (Auto) (1.4-5.7) K/uL Lymph # (Auto) (0.6-2.4) K/uL [place] # (Auto) (0.0-0.8) K/uL Eos # (Auto) (0.0-0.7) K/uL Baso # (Auto) (0.0-0.1) K/uL Add Manual Diff Neutrophils % (Manual) (48.0-80.0) % Lymphocytes % (Manual) (16.0-40.0) % Monocytes % (Manual) (0.0-15.0) % Nucleated RBC % /100WBC Absolute Seg Neuts (1.4-5.7) Lymphocytes # (Manual) (0.6-2.4) Monocytes # (Manual) (0.0-0.8) Nucleated RBCs # K/uL INR Lactate (0.20-2.00) mmol/L Sodium (136-148) mmol/L Potassium (3.5-5.1) mmol/L Chloride (98-107) mmol/L Carbon Dioxide (21.0-32.0) mmol/L BUN (7.0-18.0) mg/dL Creatinine (0.8-1.3) mg/dL Est Cr Clr Drug Dosing mL/min Estimated GFR (MDRD) ml/min Glucose (74-106) mg/dL POC Glucose 400 H 282 H (60-110) mg/dL Hemoglobin A1c (4.5-6.2) % Calcium (8.5-10.1) mg/dL Phosphorus (2.6-4.7) mg/dL Magnesium (1.8-2.4) mg/dL Total Bilirubin (0.2-1.0) mg/dL AST (15-37) IU/L ALT (14-63) IU/L Alkaline Phosphatase (46-116) U/L Troponin I (0.000-0.056) ng/mL Total Protein (6.4-8.2) g/dL Albumin (3.4-5.0) g/dL Globulin (2.6-4.0) g/dL Albumin/Globulin Ratio (0.9-1.6) Lipase (73-393) U/L Urine Color Urine Appearance Urine pH (5.0-8.0) Ur Specific [place] (1.001-1.035) Urine Protein (NEGATIVE) mg/dL Urine Glucose (UA) (NEGATIVE) mg/dL Urine Ketones (NEGATIVE) mg/dL Urine Occult Blood (NEGATIVE) Urine Nitrite (NEGATIVE) Urine Bilirubin (NEGATIVE) Urine Ictotest Urine Urobilinogen (<2.0) EU/dL Ur Leukocyte Esterase (NEGATIVE) U Hyaline Cast (Auto) (0-2/LPF) Urine RBC (0-2/HPF) Urine WBC (0-5/HPF) Ur Epithelial Cells (NONE-FEW) Urine Bacteria (NEGATIVE) Urine Mucus (NONE-MOD) SARS-CoV-2 RNA (ABBIE) (NEGATIVE) Meds: Medications Generic Name Dose Route Start Last Admin Trade Name Freq PRN Reason Stop Dose Admin Albuterol/Ipratropium 3 ml 11/27/19 19:29 Duoneb 3.0-0.5 Mg/3 Ml NEB Q4HRRT PRN Shortness Of Breath/wheezing Amiodarone HCl 200 mg 11/28/19 09:00 11/28/19 09:07 Cordarone PO 200 mg BID ESTEPHANIA Administration Aspirin 81 mg 11/28/19 09:00 11/28/19 13:30 Aspirin PO Not Given DAILY [facility] Atorvastatin Calcium 10 mg 11/28/19 09:00 11/28/19 13:31 Lipitor PO Not Given DAILY ESTEPHANIA Clopidogrel Bisulfate 75 mg 11/28/19 09:00 11/28/19 13:32 Plavix PO Not Given DAILY ESTEPHANIA Duloxetine HCl 30 mg 11/28/19 09:00 11/28/19 13:31 Cymbalta PO Not Given DAILY ESTEPHANIA Sodium Chloride 500 mls @ 999 mls/hr 11/27/19 15:30 11/27/19 15:29 Normal Saline IV 999 mls/hr .BOLUS ESTEPHANIA Administration Sodium Chloride 500 mls @ 999 mls/hr 11/27/19 17:00 11/27/19 17:01 Normal Saline IV 999 mls/hr .BOLUS ESTEPHANIA Administration Lactated Ringer's 1,000 mls @ 125 mls/hr 11/27/19 19:30 11/28/19 06:43 Ringers, Lactated IV 125 mls/hr ASDIRECTED ESTEPHANIA Administration Piperacillin Sod/Tazobactam 50 mls @ 100 mls/hr 11/27/19 19:45 11/28/19 12:10 Sod 3.375 gm/ Sodium Chloride IV 100 mls/hr Q8H ESTEPHANIA Administration Pantoprazole Sodium 40 mg/ 10 mls @ 300 mls/hr 11/27/19 23:01 11/28/19 10:17 Sodium Chloride IV 300 mls/hr Q12H ESTEPHANIA Administration Insulin Human Regular 100 unit 100 mls @ 6 mls/hr 11/28/19 09:30 11/28/19 14:10 / Sodium Chloride IV 0.5 units/hr TITRATE ESTEPHANIA 0.5 mls/hr Titration Protocol Insulin Aspart 0 unit 11/28/19 07:30 11/28/19 12:44 Novolog SUBCUT Not Given TIDAC [facility] Protocol Isosorbide Mononitrate 30 mg 11/28/19 09:00 11/28/19 13:31 Imdur PO Not Given DAILY ESTEPHANIA Metoprolol Tartrate 50 mg 11/28/19 09:00 11/28/19 09:07 Lopressor PO 50 mg BID ESTEPHANIA Administration Morphine Sulfate 2 mg 11/27/19 23:02 11/28/19 08:45 Morphine IVPUSH 11/28/19 19:30 2 mg Q2H PRN Administration Pain (severe 7-10) Ondansetron HCl 4 mg 11/27/19 19:29 11/28/19 00:23 Zofran IVPUSH 4 mg Q4H PRN Administration Nausea/Vomiting Ranolazine 500 mg 11/28/19 09:00 11/28/19 13:33 Ranexa PO Not Given BID ESTEPHANIA Sodium Chloride 10 ml 11/27/19 15:24 11/27/19 15:35 Saline Flush FLUSH 10 ml ASDIRECTED PRN Administration Keep Vein Open Sodium Chloride 2.5 ml 11/27/19 15:24 11/27/19 15:35 Saline Flush FLUSH 2.5 ml ASDIRECTED PRN Administration Keep Vein Open Sodium Chloride 2.5 ml 11/27/19 15:24 11/27/19 15:35 Saline Flush FLUSH 2.5 ml ASDIRECTED PRN Administration Keep Vein Open Sucralfate 1 gm 11/28/19 00:00 11/28/19 06:44 Carafate PO 1 gm QID ESTEPHANIA Administration Topiramate 25 mg 11/28/19 09:00 11/28/19 13:33 Topamax PO Not Given BID [facility] Discontinued Medications Generic Name Dose Route Start Last Admin Trade Name Freq PRN Reason Stop Dose Admin Amiodarone HCl 200 mg 11/28/19 02:51 11/28/19 03:00 Cordarone PO 11/28/19 02:52 200 mg ONETIME ONE Administration Diphenhydramine HCl 25 mg 11/27/19 15:26 11/27/19 15:32 Benadryl IVPUSH 11/27/19 15:27 25 mg ONETIME ONE Administration Famotidine 20 mg 11/27/19 18:47 11/27/19 18:54 Pepcid IVPUSH 11/27/19 18:48 20 mg ONETIME ONE Administration Famotidine Confirm 11/27/19 18:49 11/27/19 19:01 Pepcid Administered 11/27/19 18:50 Not Given Dose 20 mg .ROUTE .STK-MED ONE Pantoprazole Sodium 40 mg/ 10 mls @ 300 mls/hr 11/28/19 09:00 Sodium Chloride IV Q24H ESTEPHANIA Lactated Ringer's 500 mls @ 999 mls/hr 11/27/19 20:34 11/27/19 21:10 Ringers, Lactated IV 11/27/19 21:04 999 mls/hr .BOLUS ONE Administration Sodium Chloride 1,000 mls @ 999 mls/hr 11/28/19 08:21 11/28/19 10:05 Normal Saline IV 11/28/19 09:21 Not Given .Bolus ONE Lactated Ringer's 1,000 mls @ 999 mls/hr 11/28/19 08:32 11/28/19 08:40 Ringers, Lactated IV 11/28/19 09:32 999 mls/hr .BOLUS ONE Administration Lactated Ringer's 1,000 mls @ 999 mls/hr 11/28/19 09:36 11/28/19 09:57 Ringers, Lactated IV 11/28/19 10:36 999 mls/hr .BOLUS ONE Administration Insulin Detemir 5 unit 11/27/19 23:30 11/27/19 23:58 Levemir SUBCUT 11/27/19 23:31 5 units BEDTIME ONE Administration Lorazepam 1 mg 11/28/19 01:02 11/28/19 01:34 Ativan IVPUSH 11/28/19 01:03 1 mg ONETIME ONE Administration Metoclopramide HCl 10 mg 11/27/19 15:25 11/27/19 15:30 Reglan IVPUSH 11/27/19 15:26 10 mg ONETIME ONE Administration Metoprolol Tartrate 5 mg 11/28/19 02:27 11/28/19 02:38 Lopressor IVPUSH 11/28/19 02:28 5 mg ONETIME ONE Administration Metoprolol Tartrate 50 mg 11/28/19 02:29 11/28/19 02:40 Lopressor PO 11/28/19 02:30 50 mg ONETIME ONE Administration Morphine Sulfate 1 mg 11/27/19 19:29 11/27/19 22:27 Morphine IVPUSH 11/28/19 19:30 1 mg Q2H PRN Administration Pain (severe 7-10) Ondansetron HCl 4 mg 11/27/19 16:54 11/27/19 17:02 Zofran IVPUSH 11/27/19 16:55 4 mg ONETIME ONE Administration Prochlorperazine Edisylate 5 mg 11/27/19 18:47 11/27/19 18:52 Compazine IVPUSH 11/27/19 18:48 5 mg ONETIME ONE Administration Prochlorperazine Edisylate Confirm 11/27/19 18:49 11/27/19 18:55 Compazine Administered 11/27/19 18:50 Not Given Dose 10 mg .ROUTE .STK-MED ONE Departure - Departure Time of Disposition: 19:30 Disposition: Refer to Observation Condition: Fair Clinical Impression: Nausea & vomiting, Vomiting - Discharge Information *PRESCRIPTION DRUG MONITORING PROGRAM REVIEWED*: Not Applicable *COPY OF PRESCRIPTION DRUG MONITORING REPORT IN PATIENT CEZAR: Not Applicable Sepsis Event Note (ED) - Evaluation Sepsis Screening Result: Possible Sepsis Risk - Focused Exam Vital Signs: Vital Signs Temp Pulse Pulse Resp BP BP BP 11/28/19 09:07 87 103/66 11/28/19 07:00 37.1 C 87 18 103/66 11/28/19 05:00 37.0 C 92 18 118/70 11/28/19 03:20 37.0 C 105 H 19 125/62 11/28/19 03:05 37.0 C 105 H 18 125/62 11/28/19 02:40 135 H 131/73 11/28/19 02:38 135 H 131/73 Pulse Ox 11/28/19 09:07 11/28/19 07:00 100 11/28/19 05:00 96 11/28/19 03:20 96 11/28/19 03:05 96 11/28/19 02:40 11/28/19 02:38 - My Orders Last 24 Hours: My Active Orders 11/27/19 15:24 Cardiac Monitoring [RC] Q8H EKG Documentation Completion [RC] STAT Pulse Oximetry [RC] ASDIRECTED Sodium Chloride 0.9% [Saline Flush] 10 ml FLUSH ASDIRECTED PRN Sodium Chloride 0.9% [Saline Flush] 2.5 ml FLUSH ASDIRECTED PRN Sodium Chloride 0.9% [Saline Flush] 2.5 ml FLUSH ASDIRECTED PRN Saline Lock Insert [OM.PC] Stat 11/27/19 15:30 Sodium Chloride 0.9% [Normal Saline] 500 ml IV .BOLUS 11/27/19 17:00 Sodium Chloride 0.9% [Normal Saline] 500 ml IV .BOLUS - Assessment/Plan Last 24 Hours: My Active Orders 11/27/19 15:24 Cardiac Monitoring [RC] Q8H EKG Documentation Completion [RC] STAT Pulse Oximetry [RC] ASDIRECTED Sodium Chloride 0.9% [Saline Flush] 10 ml FLUSH ASDIRECTED PRN Sodium Chloride 0.9% [Saline Flush] 2.5 ml FLUSH ASDIRECTED PRN Sodium Chloride 0.9% [Saline Flush] 2.5 ml FLUSH ASDIRECTED PRN Saline Lock Insert [OM.PC] Stat 11/27/19 15:30 Sodium Chloride 0.9% [Normal Saline] 500 ml IV .BOLUS 11/27/19 17:00 Sodium Chloride 0.9% [Normal Saline] 500 ml IV .BOLUS
--- NOTE | 2019-11-27 18:09 | CT ---
INDICATION: Abdominal pain. Hematemesis. TECHNIQUE: Noncontrast CT of the abdomen and pelvis. COMPARISON: December 22, 2018. FINDINGS: Pacemaker lead wires are identified in the right side of the heart including the right atrium, right ventricle and also the coronary sinus. Clear included lung bases. Low-dense lesion within segment 4 of the liver reportedly a hemangioma identified on prior studies not currently available. Focal fatty infiltration along the falciform ligament of the liver. No biliary ductal dilatation. Surgically absent gallbladder. No splenomegaly. The unenhanced pancreas and adrenal glands are within normal limits. Normal-appearing left kidney. 1 mm nonobstructing stone lower pole right kidney. Small right renal cortical cyst measuring 1.5 cm. Normal caliber abdominal aorta and iliac arteries. Normal inferior vena cava. There is no bowel obstruction ileus and no ascites or lymphadenopathy. The urinary bladder is unremarkable. The included skeleton is negative for acute fractures. Mild degenerative disc disease at L4. The stomach and duodenum are largely decompressed. There may be a small esophageal hiatal hernia. Increased attenuation of subcutaneous fat within the right and left lower quadrants. These could reflect medication injection sites. IMPRESSION: 1. Small esophageal hiatal hernia. No bowel obstruction or ileus. No ascites. 2. Pacemaker lead wires identified in the right atrium, right ventricle, and coronary sinus. 3. 1 mm nonobstructing stone lower pole right kidney. Small right renal cyst. Surgically absent gallbladder. Presumed cavernous hemangioma left hepatic lobe. 4. Probable medication injection sites within the right and left lower quadrant subcutaneous soft tissues. Please note that all CT scans at this facility use dose modulation, iterative reconstruction, and/or weight-based dosing when appropriate to reduce radiation dose to as low as reasonably achievable. Dictated by Juan Alberto Allen MD @ Nov 27 2019 5:52PM Signed by Dr. Juan Alberto Allen @ Nov 27 2019 6:08PM
[2019-11-27] MEDS ORDERED: Famotidine 20 MG/2 ML SDV IVPUSH ONE (18:47)
[2019-11-27] MEDS ORDERED: Prochlorperazine 10 MG/2 ML SDV IVPUSH ONE (18:47)
[2019-11-27] MEDS ORDERED: Prochlorperazine 10 MG/2 ML SDV ONE (18:49)
[2019-11-27] MEDS ORDERED: Famotidine 20 MG/2 ML SDV ONE (18:49)
[2019-11-27] MEDS ORDERED: Morphine 10 MG/ML Syringe IVPUSH PRN (19:29)
[2019-11-27] MEDS ORDERED: Albuterol/Ipratropium 3.0-0.5 MG/3 ML Neb Soln NEB PRN (19:29)
[2019-11-27] MEDS ORDERED: Ondansetron 4 MG/2 ML SDV IVPUSH PRN (19:29)
--- NOTE | 2019-11-27 19:32 | PCM.HP.2 ---
H&P History of Present Illness - General Date of Service: 11/27/19 Admit Problem/Dx: Admission Diagnosis/Problem Admission Diagnosis/Problem Nausea and vomiting Source of Information: Patient, Provider - History of Present Illness Initial Comments - Free Text/Narative: Patient is 53 y/o M with PMH of CAD, s/ stents, bypass surgery , s/p pacemaker DM, gastroparesis, presents with Nausea and vomiting for the past 2 days he states he has not been able to keep anything down for past 48 hours. States his vomiting was pretty severe and there were streaks of blood mixed with vomitus. Vomiting was associated with pain across the upper aspect of his abdomen, he denies any diarrhea he is also been having chest pain which is actually chronic he has an extensive cardiac history with cardiomyopathy syncope and multiple stents and bypass surgery. He denies any fever chills no known exposures no known bad food. Nothing seems to make it better or worse. In the ER CT scan adboem was done which was unremarkable for any acute process. His WBC count was high, he was tachycardiac, received IV fluids, and Zofran and pain meds, Patients xray was clear, UA pending, troponin negative. Patient is admitted for further management. Chest Pain Score (Numeric/FACES): 8 - Related Data Allergies/Adverse Reactions: Allergies Allergy/AdvReac Type Severity Reaction Status Date / Time No Known Allergies Allergy Verified 11/27/19 22:34 Home Medications: Home Meds Insulin Aspart [NovoLOG] See Protocol SUBCUT TIDMEALS #0 12/25/16 [Rx] Metoprolol Tartrate 50 mg PO BID 01/05/19 [History] Topiramate 25 mg PO BID 01/05/19 [History] atorvaSTATin [Lipitor] 10 mg PO DAILY 01/05/19 [History] Insulin Lispro [Humalog Kwikpen U-100] 1 unit SQ ASDIRECTED 06/11/19 [History] Losartan [Cozaar] 50 mg PO DAILY 06/11/19 [History] Apixaban [Eliquis] 5 mg PO BID 11/02/19 [History] DULoxetine [Cymbalta] 30 mg PO DAILY 11/02/19 [History] Ranolazine [Ranolazine ER] 500 mg PO BID 11/02/19 [History] GI Cocktail 20 ml PO Q6H PRN #1 bot 11/03/19 [Rx] Pantoprazole Sodium [Protonix] 40 mg PO BID #60 tablet. 11/03/19 [Rx] Amiodarone [Cordarone] 200 mg PO BID 11/27/19 [History] Aspirin 81 tab PO DAILY 11/27/19 [History] Clopidogrel [Plavix] 75 mg PO DAILY 11/27/19 [History] Isosorbide Mononitrate [Isosorbide Mononitrate ER] 30 mg PO DAILY 11/27/19 [History] Potassium Chloride 10 meq PO BID 11/27/19 [History] Sucralfate [Carafate] 1 gm PO QID 11/27/19 [History] Past Medical History - Past Health History Medical/Surgical History: Denies Medical/Surgical History HEENT History: Reports: None Cardiovascular History: Reports: CAD, Heart Failure, High Cholesterol, Hypertension, ID, Pacemaker Other Cardiovascular History: Valve Problem Respiratory History: Reports: Other (See Below) Other Respiratory History: recently diagnosed with nodules in lungs Gastrointestinal History: Reports: None Genitourinary History: Reports: Chronic Renal Insuffiency Musculoskeletal History: Reports: Back Pain, Chronic Neurological History: Reports: Neuropathy, Diabetic, Other (See Below) Other Neuro History: Intracranial hypertension Psychiatric History: Reports: Anxiety, Depression Endocrine/Metabolic History: Reports: Diabetes, Type I Insulin Pump Model and Parts Consultant: None Hematologic History: Reports: None Immunologic History: Reports: None Oncologic (Cancer) History: Reports: None Dermatologic History: Reports: None - Infectious Disease History Infectious Disease History: Reports: None - Past Surgical History Head Surgeries/Procedures: Reports: None HEENT Surgical History: Reports: Oral Surgery Cardiovascular Surgical History: Reports: AICD, Coronary Artery Stent, Other (See Below) Respiratory Surgical History: Reports: None GI Surgical History: Reports: Cholecystectomy Male Surgical History: Reports: None Endocrine Surgical History: Reports: None Neurological Surgical History: Reports: None Musculoskeletal Surgical History: Reports: None Oncologic Surgical History: Reports: None Dermatological Surgical History: Reports: None Social & Family History - Family History Family Medical History: Noncontributory - Tobacco Use Smoking Status *Q: Never Smoker - Caffeine Use Caffeine Use: Reports: None - Recreational Drug Use Recreational Drug Use: No - Living Situation & Occupation Living situation: Reports: , with Spouse, with Family (2 kids) Occupation: Unemployed H&P Review of Systems - Review of Systems: Review Of Systems: See Below General: Reports: Malaise, Weakness, Fatigue, Decreased Appetite. Denies: Fever, Chills, Night Sweats, Diaphoresis Pulmonary: Denies: Shortness of Breath, Wheezing, Pleuritic Chest Pain Cardiovascular: Reports: Chest Pain. Denies: Palpitations, Dyspnea on Exertion, Orthopnea Gastrointestinal: Reports: Abdominal Pain, Anorexia, Bloody Stool, Decreased Appetite, Flatus, Hematemesis. Denies: Black Stool, Constipation, Diarrhea, Difficulty Swallowing, Distension, Hematochezia, Melena, Mucous in Stool Genitourinary: Denies: Dysuria, Frequency Musculoskeletal: Denies: Neck Pain, Shoulder Pain, Arm Pain Skin: Denies: Cyanosis, Jaundice, Mottled, Pallor Psychiatric: Reports: Mood Lability. Denies: Confusion, Depression, Agitation, Cravings, Hallucinations Neurological: Denies: Confusion, Dizziness, Headache, Numbness Exam - Exam Exam: See Below - Vital Signs Vital Signs: Last Vital Signs Temp 35.5 C L 11/27/19 15:17 Pulse 115 H 11/27/19 16:30 Resp 18 11/27/19 16:30 BP 123/80 11/27/19 16:30 Pulse Ox 96 11/27/19 16:30 Weight: 83.915 kg - Exam Quality Assessment: Supplemental Oxygen Neck: Supple, Trachea Midline Lungs: Clear to Auscultation, Normal Respiratory Effort Cardiovascular: Regular Rate, Regular Rhythm GI/Abdominal Exam: Normal Bowel Sounds, Soft, No Distention, Guarding, Rigid, Tender. No: Non-Tender - Patient Data Lab Results Last 24 hrs: Laboratory Results - last 24 hr 11/27/19 11/27/19 11/27/19 Range/Units 15:20 15:20 15:20 WBC 17.33 H (4.0-11.0) K/uL RBC 5.20 (4.50-5.90) M/uL Hgb 17.2 H (13.0-17.0) g/dL Hct 47.8 (38.0-50.0) % MCV 91.9 (80.0-98.0) fL MCH 33.1 H (27.0-32.0) pg MCHC 36.0 (31.0-37.0) g/dL RDW Std Deviation 42.0 (28.0-62.0) fl RDW Coeff of Charles 13 (11.0-15.0) % Plt Count 303 (150-400) K/uL MPV 10.40 (7.40-12.00) fL Add Manual Diff YES Neutrophils % (Manual) 84 H (48.0-80.0) % Lymphocytes % (Manual) 8 L (16.0-40.0) % Monocytes % (Manual) 8 (0.0-15.0) % Nucleated RBC % 0.0 /100WBC Absolute Seg Neuts 14.6 H (1.4-5.7) Lymphocytes # (Manual) 1.4 (0.6-2.4) Monocytes # (Manual) 1.4 H (0.0-0.8) Nucleated RBCs # 0 K/uL INR 1.05 Lactate (0.20-2.00) mmol/L Sodium 141 (136-148) mmol/L Potassium 3.7 (3.5-5.1) mmol/L Chloride 100 (98-107) mmol/L Carbon Dioxide 12.6 L (21.0-32.0) mmol/L BUN 35 H (7.0-18.0) mg/dL Creatinine 2.1 H (0.8-1.3) mg/dL Est Cr Clr Drug Dosing 46.75 mL/min Estimated GFR (MDRD) 33.1 ml/min Glucose 222 H (74-106) mg/dL Calcium 9.7 (8.5-10.1) mg/dL Total Bilirubin 1.6 H (0.2-1.0) mg/dL AST 29 (15-37) IU/L ALT 50 (14-63) IU/L Alkaline Phosphatase 114 (46-116) U/L Troponin I < 0.050 (0.000-0.056) ng/mL Total Protein 8.1 (6.4-8.2) g/dL Albumin 5.1 H (3.4-5.0) g/dL Globulin 3.0 (2.6-4.0) g/dL Albumin/Globulin Ratio 1.7 H (0.9-1.6) Lipase 75 (73-393) U/L SARS-CoV-2 RNA (ABBIE) (NEGATIVE) 11/27/19 11/27/19 11/27/19 Range/Units 17:24 17:25 18:45 WBC (4.0-11.0) K/uL RBC (4.50-5.90) M/uL Hgb (13.0-17.0) g/dL Hct (38.0-50.0) % MCV (80.0-98.0) fL MCH (27.0-32.0) pg MCHC (31.0-37.0) g/dL RDW Std Deviation (28.0-62.0) fl RDW Coeff of Charles (11.0-15.0) % Plt Count (150-400) K/uL MPV (7.40-12.00) fL Add Manual Diff Neutrophils % (Manual) (48.0-80.0) % Lymphocytes % (Manual) (16.0-40.0) % Monocytes % (Manual) (0.0-15.0) % Nucleated RBC % /100WBC Absolute Seg Neuts (1.4-5.7) Lymphocytes # (Manual) (0.6-2.4) Monocytes # (Manual) (0.0-0.8) Nucleated RBCs # K/uL INR Lactate 2.8 H* (0.20-2.00) mmol/L Sodium (136-148) mmol/L Potassium (3.5-5.1) mmol/L Chloride (98-107) mmol/L Carbon Dioxide (21.0-32.0) mmol/L BUN (7.0-18.0) mg/dL Creatinine (0.8-1.3) mg/dL Est Cr Clr Drug Dosing mL/min Estimated GFR (MDRD) ml/min Glucose (74-106) mg/dL Calcium (8.5-10.1) mg/dL Total Bilirubin (0.2-1.0) mg/dL AST (15-37) IU/L ALT (14-63) IU/L Alkaline Phosphatase (46-116) U/L Troponin I < 0.050 (0.000-0.056) ng/mL Total Protein (6.4-8.2) g/dL Albumin (3.4-5.0) g/dL Globulin (2.6-4.0) g/dL Albumin/Globulin Ratio (0.9-1.6) Lipase (73-393) U/L SARS-CoV-2 RNA (ABBIE) NEGATIVE (NEGATIVE) Result Diagrams: 11/28/19 06:05 11/28/19 06:05 Sepsis Event Note - Evaluation Sepsis Screening Result: Possible Sepsis Risk - Focused Exam Vital Signs: Vital Signs Temp Pulse Resp BP Pulse Ox 11/27/19 16:30 115 H 18 123/80 96 11/27/19 16:15 114 H 18 117/71 94 L 11/27/19 16:00 116 H 18 95/66 94 L 11/27/19 15:45 110 H 18 100/68 94 L 11/27/19 15:30 119 H 19 124/76 96 11/27/19 15:17 35.5 C L 138 H 33 H 130/83 98 - Problem List (1) Nausea & vomiting SNOMED Code(s): 17625884 ICD Code: R11.2 - NAUSEA WITH VOMITING, UNSPECIFIED Status: Acute Current Visit: Yes (2) Abdominal pain SNOMED Code(s): 76779767 ICD Code: R10.9 - UNSPECIFIED ABDOMINAL PAIN Status: Acute Current Visit: No Qualifiers: Abdominal location: right upper quadrant Qualified Code(s): R10.11 - Right upper quadrant pain (3) Bloody emesis SNOMED Code(s): 7959404 ICD Code: K92.0 - HEMATEMESIS Status: Acute Current Visit: Yes (4) Gastroparesis SNOMED Code(s): 582628589 ICD Code: K31.84 - GASTROPARESIS Status: Acute Current Visit: No (5) DM type 1 (diabetes mellitus, type 1) SNOMED Code(s): 57503871 ICD Code: E10.9 - TYPE 1 DIABETES MELLITUS WITHOUT COMPLICATIONS Status: Chronic Current Visit: No Qualifiers: Diabetes mellitus complication status: with hyperglycemia Qualified Code(s): E10.65 - Type 1 diabetes mellitus with hyperglycemia (6) History of coronary artery disease SNOMED Code(s): 672692280 ICD Code: Z86.79 - PERSONAL HISTORY OF OTHER DISEASES OF THE CIRCULATORY SYSTEM Status: Chronic Current Visit: No (7) Hx of cardiac pacemaker SNOMED Code(s): 871940260 ICD Code: Z95.0 - PRESENCE OF CARDIAC PACEMAKER Status: Chronic Current Visit: No (8) LATOYA (acute kidney injury) SNOMED Code(s): 08520895, 55859216 ICD Code: N17.9 - ACUTE KIDNEY FAILURE, UNSPECIFIED Status: Acute Current Visit: Yes Problem List Initiated/Reviewed/Updated: Yes Orders Last 24hrs: Active Orders 24 hr Category Date Time Status Admission Status [Patient Status] [ADT] Stat ADT 11/27/19 19:20 Active Ambulate [RC] ASDIRECTED Care 11/27/19 19:29 Ordered Antiembolic Devices [RC] PER UNIT ROUTINE Care 11/27/19 19:30 Ordered Cardiac Monitoring [RC] . DIRECTED Care 11/27/19 15:24 Active EKG Documentation Completion [RC] STAT Care 11/27/19 15:24 Active Oxygen Therapy [RC] PRN Care 11/27/19 19:29 Ordered Pulse Oximetry [RC] ASDIRECTED Care 11/27/19 15:24 Active RT Aerosol Therapy [RC] ASDIRECTED Care 11/27/19 19:31 Ordered VTE/DVT Education [RC] PER UNIT ROUTINE Care 11/27/19 19:29 Ordered Vital Signs [RC] Q4H Care 11/27/19 19:29 Ordered Clear Liquid Diet [DIET] Diet 11/27/19 Dinner Ordered LACTIC ACID,WHOLE BLOOD [BG] Routine Lab 11/27/19 21:00 Ordered UA RFX SUSAN AND CULT IF INDIC [URIN] Stat Lab 11/27/19 18:23 Ordered Albuterol/Ipratropium [DuoNeb 3.0-0.5 MG/3 ML] Med 11/27/19 19:29 Ordered 3 ml NEB Q4HRRT PRN Lactated Ringers @ 125 MLS/HR(1000ml) Med 11/27/19 19:30 Ordered Lactated Ringers [Ringers, Lactated] 1,000 ml IV ASDIRECTED Morphine Med 11/27/19 19:29 Ordered 1 mg IVPUSH Q2H PRN Ondansetron [Zofran] Med 11/27/19 19:29 Ordered 4 mg IVPUSH Q4H PRN Sodium Chloride 0.9% [Normal Saline] 500 ml Med 11/27/19 15:30 Active IV .BOLUS Sodium Chloride 0.9% [Normal Saline] 500 ml Med 11/27/19 17:00 Active IV .BOLUS Sodium Chloride 0.9% [Saline Flush] Med 11/27/19 15:24 Active 10 ml FLUSH ASDIRECTED PRN Sodium Chloride 0.9% [Saline Flush] Med 11/27/19 15:24 Active 2.5 ml FLUSH ASDIRECTED PRN Sodium Chloride 0.9% [Saline Flush] Med 11/27/19 15:24 Active 2.5 ml FLUSH ASDIRECTED PRN Saline Lock Insert [OM.PC] Stat Ot 11/27/19 15:24 Ordered Sequential Compression Device [OM.PC] Per Unit Routine Ot 11/27/19 19:29 Ordered Medication Orders Sodium Chloride (Normal Saline) 500 mls @ 999 mls/hr IV .[facility] Last Admin: 11/27/19 15:29 Dose: 999 mls/hr Documented by: ALBERTO Sodium Chloride (Normal Saline) 500 mls @ 999 mls/hr IV .[facility] Last Admin: 11/27/19 17:01 Dose: 999 mls/hr Documented by: ALBERTO Sodium Chloride (Saline Flush) 10 ml FLUSH ASDIRECTED PRN PRN Reason: Keep Vein Open Last Admin: 11/27/19 15:35 Dose: 10 ml Documented by: ALBERTO Sodium Chloride (Saline Flush) 2.5 ml FLUSH ASDIRECTED PRN PRN Reason: Keep Vein Open Last Admin: 11/27/19 15:35 Dose: 2.5 ml Documented by: ALBERTO Sodium Chloride (Saline Flush) 2.5 ml FLUSH ASDIRECTED PRN PRN Reason: Keep Vein Open Last Admin: 11/27/19 15:35 Dose: 2.5 ml Documented by: ALBERTO Assessment/Plan Comment:: 53 y/o M admitted for N/V , concern of bloody vomitus Hb is stable, lipase normal, CT abdomen unremarkable H/o Gastroparesis per old charts NPO for now IV PPI BID Zofran as needed Morphine for pain Hpylori stool antigen IV fluids for hydration Check Hb in AM LATOYA, possibly pre-renal ,cont hydration Trend another troponin F/u on UA Concern of sepsis, will start zosyn Levemir at bedtime, 5 units for now, SSI Accu checks f/u cultures SCD for dvt ppx
[2019-11-27] MEDS ORDERED: Lactated Ringers 500 ML IV ONE (20:34)
[2019-11-27] MEDS: Piperacillin/Tazobactam 3.375 GM in Sodium Chloride 0.9% 50 ML IV SCH (21:12)
[2019-11-27] MEDS: Lactated Ringers 1,000 ML IV SCH (22:00)
[2019-11-27 23:04] LABS: HEMOGLOBIN A1C 8.4 % (4.5-6.2)
[2019-11-27] MEDS ORDERED: Insulin Detemir 100 Units/ML 3 ML Pen SUBCUT ONE (23:30)
[2019-11-27] MEDS: Pantoprazole 40 MG in Sodium Chloride 0.9% 10 ML IV SCH (23:45)
[2019-11-27] MEDS: Sucralfate 1 GM Tab PO SCH (23:48)
[2019-11-28] MEDS ORDERED: LORazepam 2 MG/ML SDV IVPUSH ONE (01:02)
[2019-11-28] MEDS: Morphine 2 MG/ML SYRINGE IVPUSH PRN ×2 (02:24→08:45)
[2019-11-28] MEDS ORDERED: Metoprolol Tartrate 5 MG/5 ML SDV IVPUSH ONE (02:27)
[2019-11-28] MEDS ORDERED: Metoprolol Tartrate 50 MG Tab PO ONE (02:29)
[2019-11-28] MEDS ORDERED: Amiodarone 200 MG Tab PO ONE (02:51)
[2019-11-28] MEDS: Piperacillin/Tazobactam 3.375 GM in Sodium Chloride 0.9% 50 ML IV SCH ×3 (03:02→19:51)
[2019-11-28] MEDS: Lactated Ringers 1,000 ML IV SCH (06:43)
[2019-11-28] MEDS: Sucralfate 1 GM Tab PO SCH ×3 (06:44→18:49)
[2019-11-28 06:59] LABS: CARBON DIOXIDE,CO2 10.4 mmol/L (21.0-32.0)
[2019-11-28] MEDS: Insulin Aspart 100 Units/ML 3 ML Pen SUBCUT SCH ×4 (07:01→17:15)
[2019-11-28] MEDS ORDERED: Sodium Chloride 0.9% 1,000 ML IV ONE (08:21)
[2019-11-28] MEDS ORDERED: Lactated Ringers 1,000 ML IV ONE ×2 (08:32→09:36)
[2019-11-28] MEDS ORDERED: Pantoprazole 40 MG in Sodium Chloride 0.9% 10 ML IV SCH (09:00)
[2019-11-28] MEDS: Metoprolol Tartrate 25 MG Tab PO SCH ×2 (09:07→20:44)
[2019-11-28] MEDS: Amiodarone 200 MG Tab PO SCH ×2 (09:07→20:44)
[2019-11-28] MEDS: Pantoprazole 40 MG in Sodium Chloride 0.9% 10 ML IV SCH ×2 (10:17→23:07)
[2019-11-28 10:42] LABS: CARBON DIOXIDE,CO2 16.7 mmol/L (21.0-32.0); POTASSIUM,K 4.4 mmol/L (3.5-5.1)
[2019-11-28] MEDS: Aspirin 81 MG Tab.Chew PO SCH (13:30)
[2019-11-28] MEDS: atorvaSTATin 10 MG Tab PO SCH (13:31)
[2019-11-28] MEDS: DULoxetine 30 MG Cap PO SCH (13:31)
[2019-11-28] MEDS: Isosorbide Mononitrate 30 MG Tab.ER PO SCH (13:31)
[2019-11-28] MEDS: Clopidogrel 75 MG Tab PO SCH (13:32)
[2019-11-28] MEDS: Topiramate 50 MG Tab PO SCH ×2 (13:33→20:43)
[2019-11-28] MEDS ORDERED: Dextrose 5%-0.45% NaCl 1,000 ML IV SCH (14:30)
[2019-11-28 14:36] LABS: CARBON DIOXIDE,CO2 23.7 mmol/L (21.0-32.0); POTASSIUM,K 3.9 mmol/L (3.5-5.1)
--- NOTE | 2019-11-28 14:47 | PN ---
REGGIE Physician - Brief Progress [id number]/20/2020 14:45[facility] Tae Arguello, [place] - SINDI (TREMAINE) - SINDI RUSSELLEVELIO GARYPeñaDate of Service 11/28/2019 14:45HPI/Events of Note eICU Admission [id number] admitted for DKA. History obtained from review of EMR, limited as admissi on documentation not completed/signed during my evaluation.PMH: Cardiomyopathy, coronary artery disea se status post multiple stents and CABG, prior pacemaker placementHPI: Patient presented to the emerg ency department with nausea, vomiting, and epigastric abdominal pain.Initial laboratory studies have revealed leukocytosis, mildly elevated lactate, elevated creatinine, hyperglycemia, and an elevated a nion gap of 28.4.Urinalysis had revealed ketonuria, and COVID testing was negative.Camera exam: Layin g in bed. Vitals monitor reviewed. eICU Impression and Recommendations:Diabetic ketoacidosis, as evid enced by hyperglycemia, ketone production, and elevated anion gap. Recommend initiation of [facility] diabetic ketoacidosis protocol for insulin replacement. Patient to remain strict NPO (except meds )Intravenous fluids for fluid resuscitation, with strict I/O. Given prior cardiac history defer volum e target to bedside exam, we are available to assist/comment as desiredElectrolyte replacement as nee ded, including potassium, magnesium and phosphorus.Given concomitant insulin administration, recommen d potassium replacement given risk of further depletion. Suggest 20-30mEq/L once K is <5.3 mEq/L, an d holding of insulin drip should K fall below 3.3.Suggest BMP q4h for assessment of progression.Posit elsa SIRS criteria, likely secondary to DKA, CXR without acute focal consolidation, urinalysis not sug gestive of UTI, CT abd/pelvis not read to reveal an acute infectious processA reasonable approach is to discontinue antibiotics at this time, and track trend of WBC and vitals with fluid resuscitation a nd insulin drip, and should vitals fail to improve recommend blood cultures, and initiation of empiri c antibioticsDVT and GI prophylaxis as appropriate.Thank you for allowing us to participate in the ca re of this patient.The above note transcribed with the assistance of dictation software. Please excus e any errors.Interventions Major-Other: DKA
--- NOTE | 2019-11-28 15:50 | PCM.PN ---
<Luis Turcios - Last Filed: 11/28/19 15:52> - General Info Date of Service: 11/28/19 Subjective Update: Patient appears lethargic this morning. Patient states that he feels tired, nauseas, weak and has no appetite. Denies chest pain, SOB, fever chills. . - Review of Systems General: Reports: Weakness, Fatigue, Malaise. Denies: Chills, Night Sweats Pulmonary: Denies: Shortness of Breath, Pleuritic Chest Pain, Cough Cardiovascular: Denies: Chest Pain, Palpitations Gastrointestinal: Reports: Decreased Appetite, Nausea, Vomiting. Denies: Abdominal Pain Neurological: Denies: Confusion, Dizziness, Headache - Patient Data Vitals - Most Recent: Last Vital Signs Temp 98.8 F 11/28/19 07:00 Pulse 87 11/28/19 09:07 Resp 18 11/28/19 07:00 BP 103/66 11/28/19 09:07 Pulse Ox 100 11/28/19 07:00 Weight - Most Recent: 83.915 kg I&O - Last 24 Hours: Intake & Output 11/28/19 11/28/19 11/28/19 06:59 14:59 22:59 Intake Total 945 Output Total 3451 900 Balance -2506 -900 Lab Results Last 24 Hours: Laboratory Results - last 24 hr 11/27/19 11/27/19 11/27/19 Range/Units 15:20 15:20 15:20 WBC (4.0-11.0) K/uL RBC (4.50-5.90) M/uL Hgb (13.0-17.0) g/dL Hct (38.0-50.0) % MCV (80.0-98.0) fL MCH (27.0-32.0) pg MCHC (31.0-37.0) g/dL RDW Std Deviation (28.0-62.0) fl RDW Coeff of Charles (11.0-15.0) % Plt Count (150-400) K/uL MPV (7.40-12.00) fL Neut % (Auto) (48.0-80.0) % Lymph % (Auto) (16.0-40.0) % [place] % (Auto) (0.0-15.0) % Eos % (Auto) (0.0-7.0) % Baso % (Auto) (0.0-1.5) % Neut # (Auto) (1.4-5.7) K/uL Lymph # (Auto) (0.6-2.4) K/uL [place] # (Auto) (0.0-0.8) K/uL Eos # (Auto) (0.0-0.7) K/uL Baso # (Auto) (0.0-0.1) K/uL Neutrophils % (Manual) 84 H (48.0-80.0) % Lymphocytes % (Manual) 8 L (16.0-40.0) % Monocytes % (Manual) 8 (0.0-15.0) % Nucleated RBC % /100WBC Absolute Seg Neuts 14.6 H (1.4-5.7) Lymphocytes # (Manual) 1.4 (0.6-2.4) Monocytes # (Manual) 1.4 H (0.0-0.8) Nucleated RBCs # K/uL INR 1.05 VBG pH (7.31-7.41) VBG pCO2 (35-45) mmHG VBG pO2 (30-40) mmHG VBG HCO3 (22-30) mEq/L VBG Total CO2 (41-51) mmol/L VBG Base Excess (-3.0-3.0) Lactate (0.20-2.00) mmol/L Sodium 141 (136-148) mmol/L Potassium 3.7 (3.5-5.1) mmol/L Chloride 100 (98-107) mmol/L Carbon Dioxide 12.6 L (21.0-32.0) mmol/L BUN 35 H (7.0-18.0) mg/dL Creatinine 2.1 H (0.8-1.3) mg/dL Est Cr Clr Drug Dosing 46.75 mL/min Estimated GFR (MDRD) 33.1 ml/min Glucose 222 H (74-106) mg/dL POC Glucose (60-110) mg/dL Hemoglobin A1c (4.5-6.2) % Calcium 9.7 (8.5-10.1) mg/dL Phosphorus (2.6-4.7) mg/dL Magnesium (1.8-2.4) mg/dL Total Bilirubin 1.6 H (0.2-1.0) mg/dL AST 29 (15-37) IU/L ALT 50 (14-63) IU/L Alkaline Phosphatase 114 (46-116) U/L Troponin I < 0.050 (0.000-0.056) ng/mL Total Protein 8.1 (6.4-8.2) g/dL Albumin 5.1 H (3.4-5.0) g/dL Globulin 3.0 (2.6-4.0) g/dL Albumin/Globulin Ratio 1.7 H (0.9-1.6) Lipase 75 (73-393) U/L Urine Color Urine Appearance Urine pH (5.0-8.0) Ur Specific Avery (1.001-1.035) Urine Protein (NEGATIVE) mg/dL Urine Glucose (UA) (NEGATIVE) mg/dL Urine Ketones (NEGATIVE) mg/dL Urine Occult Blood (NEGATIVE) Urine Nitrite (NEGATIVE) Urine Bilirubin (NEGATIVE) Urine Ictotest Urine Urobilinogen (<2.0) EU/dL Ur Leukocyte Esterase (NEGATIVE) U Hyaline Cast (Auto) (0-2/LPF) Urine RBC (0-2/HPF) Urine WBC (0-5/HPF) Ur Epithelial Cells (NONE-FEW) Urine Bacteria (NEGATIVE) Urine Mucus (NONE-MOD) SARS-CoV-2 RNA (ABBIE) (NEGATIVE) 11/27/19 11/27/19 11/27/19 Range/Units 17:24 17:25 18:45 WBC (4.0-11.0) K/uL RBC (4.50-5.90) M/uL Hgb (13.0-17.0) g/dL Hct (38.0-50.0) % MCV (80.0-98.0) fL MCH (27.0-32.0) pg MCHC (31.0-37.0) g/dL RDW Std Deviation (28.0-62.0) fl RDW Coeff of Charles (11.0-15.0) % Plt Count (150-400) K/uL MPV (7.40-12.00) fL Neut % (Auto) (48.0-80.0) % Lymph % (Auto) (16.0-40.0) % [place] % (Auto) (0.0-15.0) % Eos % (Auto) (0.0-7.0) % Baso % (Auto) (0.0-1.5) % Neut # (Auto) (1.4-5.7) K/uL Lymph # (Auto) (0.6-2.4) K/uL [place] # (Auto) (0.0-0.8) K/uL Eos # (Auto) (0.0-0.7) K/uL Baso # (Auto) (0.0-0.1) K/uL Neutrophils % (Manual) (48.0-80.0) % Lymphocytes % (Manual) (16.0-40.0) % Monocytes % (Manual) (0.0-15.0) % Nucleated RBC % /100WBC Absolute Seg Neuts (1.4-5.7) Lymphocytes # (Manual) (0.6-2.4) Monocytes # (Manual) (0.0-0.8) Nucleated RBCs # K/uL INR VBG pH (7.31-7.41) VBG pCO2 (35-45) mmHG VBG pO2 (30-40) mmHG VBG HCO3 (22-30) mEq/L VBG Total CO2 (41-51) mmol/L VBG Base Excess (-3.0-3.0) Lactate 2.8 H* (0.20-2.00) mmol/L Sodium (136-148) mmol/L Potassium (3.5-5.1) mmol/L Chloride (98-107) mmol/L Carbon Dioxide (21.0-32.0) mmol/L BUN (7.0-18.0) mg/dL Creatinine (0.8-1.3) mg/dL Est Cr Clr Drug Dosing mL/min Estimated GFR (MDRD) ml/min Glucose (74-106) mg/dL POC Glucose (60-110) mg/dL Hemoglobin A1c (4.5-6.2) % Calcium (8.5-10.1) mg/dL Phosphorus (2.6-4.7) mg/dL Magnesium (1.8-2.4) mg/dL Total Bilirubin (0.2-1.0) mg/dL AST (15-37) IU/L ALT (14-63) IU/L Alkaline Phosphatase (46-116) U/L Troponin I < 0.050 (0.000-0.056) ng/mL Total Protein (6.4-8.2) g/dL Albumin (3.4-5.0) g/dL Globulin (2.6-4.0) g/dL Albumin/Globulin Ratio (0.9-1.6) Lipase (73-393) U/L Urine Color Urine Appearance Urine pH (5.0-8.0) Ur Specific Avery (1.001-1.035) Urine Protein (NEGATIVE) mg/dL Urine Glucose (UA) (NEGATIVE) mg/dL Urine Ketones (NEGATIVE) mg/dL Urine Occult Blood (NEGATIVE) Urine Nitrite (NEGATIVE) Urine Bilirubin (NEGATIVE) Urine Ictotest Urine Urobilinogen (<2.0) EU/dL Ur Leukocyte Esterase (NEGATIVE) U Hyaline Cast (Auto) (0-2/LPF) Urine RBC (0-2/HPF) Urine WBC (0-5/HPF) Ur Epithelial Cells (NONE-FEW) Urine Bacteria (NEGATIVE) Urine Mucus (NONE-MOD) SARS-CoV-2 RNA (ABBIE) NEGATIVE (NEGATIVE) 11/27/19 11/27/19 11/27/19 Range/Units 20:55 20:55 23:58 WBC (4.0-11.0) K/uL RBC (4.50-5.90) M/uL Hgb (13.0-17.0) g/dL Hct (38.0-50.0) % MCV (80.0-98.0) fL MCH (27.0-32.0) pg MCHC (31.0-37.0) g/dL RDW Std Deviation (28.0-62.0) fl RDW Coeff of Charles (11.0-15.0) % Plt Count (150-400) K/uL MPV (7.40-12.00) fL Neut % (Auto) (48.0-80.0) % Lymph % (Auto) (16.0-40.0) % [place] % (Auto) (0.0-15.0) % Eos % (Auto) (0.0-7.0) % Baso % (Auto) (0.0-1.5) % Neut # (Auto) (1.4-5.7) K/uL Lymph # (Auto) (0.6-2.4) K/uL [place] # (Auto) (0.0-0.8) K/uL Eos # (Auto) (0.0-0.7) K/uL Baso # (Auto) (0.0-0.1) K/uL Neutrophils % (Manual) (48.0-80.0) % Lymphocytes % (Manual) (16.0-40.0) % Monocytes % (Manual) (0.0-15.0) % Nucleated RBC % /100WBC Absolute Seg Neuts (1.4-5.7) Lymphocytes # (Manual) (0.6-2.4) Monocytes # (Manual) (0.0-0.8) Nucleated RBCs # K/uL INR VBG pH (7.31-7.41) VBG pCO2 (35-45) mmHG VBG pO2 (30-40) mmHG VBG HCO3 (22-30) mEq/L VBG Total CO2 (41-51) mmol/L VBG Base Excess (-3.0-3.0) Lactate 1.6 (0.20-2.00) mmol/L Sodium (136-148) mmol/L Potassium (3.5-5.1) mmol/L Chloride (98-107) mmol/L Carbon Dioxide (21.0-32.0) mmol/L BUN (7.0-18.0) mg/dL Creatinine (0.8-1.3) mg/dL Est Cr Clr Drug Dosing mL/min Estimated GFR (MDRD) ml/min Glucose (74-106) mg/dL POC Glucose 242 H (60-110) mg/dL Hemoglobin A1c 8.4 H (4.5-6.2) % Calcium (8.5-10.1) mg/dL Phosphorus (2.6-4.7) mg/dL Magnesium (1.8-2.4) mg/dL Total Bilirubin (0.2-1.0) mg/dL AST (15-37) IU/L ALT (14-63) IU/L Alkaline Phosphatase (46-116) U/L Troponin I (0.000-0.056) ng/mL Total Protein (6.4-8.2) g/dL Albumin (3.4-5.0) g/dL Globulin (2.6-4.0) g/dL Albumin/Globulin Ratio (0.9-1.6) Lipase (73-393) U/L Urine Color Urine Appearance Urine pH (5.0-8.0) Ur Specific Avery (1.001-1.035) Urine Protein (NEGATIVE) mg/dL Urine Glucose (UA) (NEGATIVE) mg/dL Urine Ketones (NEGATIVE) mg/dL Urine Occult Blood (NEGATIVE) Urine Nitrite (NEGATIVE) Urine Bilirubin (NEGATIVE) Urine Ictotest Urine Urobilinogen (<2.0) EU/dL Ur Leukocyte Esterase (NEGATIVE) U Hyaline Cast (Auto) (0-2/LPF) Urine RBC (0-2/HPF) Urine WBC (0-5/HPF) Ur Epithelial Cells (NONE-FEW) Urine Bacteria (NEGATIVE) Urine Mucus (NONE-MOD) SARS-CoV-2 RNA (ABBIE) (NEGATIVE) 11/28/19 11/28/19 11/28/19 Range/Units 00:15 02:35 06:05 WBC 12.87 H (4.0-11.0) K/uL RBC 4.38 L (4.50-5.90) M/uL Hgb 14.4 (13.0-17.0) g/dL Hct 41.5 (38.0-50.0) % MCV 94.7 (80.0-98.0) fL MCH 32.9 H (27.0-32.0) pg MCHC 34.7 (31.0-37.0) g/dL RDW Std Deviation 44.8 (28.0-62.0) fl RDW Coeff of Charles 13 (11.0-15.0) % Plt Count 253 (150-400) K/uL MPV 10.30 (7.40-12.00) fL Neut % (Auto) 87.1 H (48.0-80.0) % Lymph % (Auto) 7.7 L (16.0-40.0) % [place] % (Auto) 5.1 (0.0-15.0) % Eos % (Auto) 0.0 (0.0-7.0) % Baso % (Auto) 0.1 (0.0-1.5) % Neut # (Auto) 11.2 H (1.4-5.7) K/uL Lymph # (Auto) 1.0 (0.6-2.4) K/uL [place] # (Auto) 0.7 (0.0-0.8) K/uL Eos # (Auto) 0.0 (0.0-0.7) K/uL Baso # (Auto) 0.0 (0.0-0.1) K/uL Neutrophils % (Manual) (48.0-80.0) % Lymphocytes % (Manual) (16.0-40.0) % Monocytes % (Manual) (0.0-15.0) % Nucleated RBC % 0.0 /100WBC Absolute Seg Neuts (1.4-5.7) Lymphocytes # (Manual) (0.6-2.4) Monocytes # (Manual) (0.0-0.8) Nucleated RBCs # 0 K/uL INR VBG pH (7.31-7.41) VBG pCO2 (35-45) mmHG VBG pO2 (30-40) mmHG VBG HCO3 (22-30) mEq/L VBG Total CO2 (41-51) mmol/L VBG Base Excess (-3.0-3.0) Lactate (0.20-2.00) mmol/L Sodium (136-148) mmol/L Potassium (3.5-5.1) mmol/L Chloride (98-107) mmol/L Carbon Dioxide (21.0-32.0) mmol/L BUN (7.0-18.0) mg/dL Creatinine (0.8-1.3) mg/dL Est Cr Clr Drug Dosing mL/min Estimated GFR (MDRD) ml/min Glucose (74-106) mg/dL POC Glucose (60-110) mg/dL Hemoglobin A1c (4.5-6.2) % Calcium (8.5-10.1) mg/dL Phosphorus (2.6-4.7) mg/dL Magnesium (1.8-2.4) mg/dL Total Bilirubin (0.2-1.0) mg/dL AST (15-37) IU/L ALT (14-63) IU/L Alkaline Phosphatase (46-116) U/L Troponin I < 0.050 (0.000-0.056) ng/mL Total Protein (6.4-8.2) g/dL Albumin (3.4-5.0) g/dL Globulin (2.6-4.0) g/dL Albumin/Globulin Ratio (0.9-1.6) Lipase (73-393) U/L Urine Color YELLOW Urine Appearance CLEAR Urine pH 5.5 (5.0-8.0) Ur Specific Avery >= 1.030 (1.001-1.035) Urine Protein TRACE H (NEGATIVE) mg/dL Urine Glucose (UA) 100 H (NEGATIVE) mg/dL Urine Ketones >=80 (NEGATIVE) mg/dL Urine Occult Blood NEGATIVE (NEGATIVE) Urine Nitrite NEGATIVE (NEGATIVE) Urine Bilirubin MODERATE H (NEGATIVE) Urine Ictotest NEGATIVE Urine Urobilinogen 0.2 (<2.0) EU/dL Ur Leukocyte Esterase NEGATIVE (NEGATIVE) U Hyaline Cast (Auto) 4-8 (0-2/LPF) Urine RBC 0-2 (0-2/HPF) Urine WBC 0-1 (0-5/HPF) Ur Epithelial Cells RARE (NONE-FEW) Urine Bacteria FEW (NEGATIVE) Urine Mucus LIGHT (NONE-MOD) SARS-CoV-2 RNA (ABBIE) (NEGATIVE) 11/28/19 11/28/19 11/28/19 Range/Units 06:05 06:51 07:54 WBC (4.0-11.0) K/uL RBC (4.50-5.90) M/uL Hgb (13.0-17.0) g/dL Hct (38.0-50.0) % MCV (80.0-98.0) fL MCH (27.0-32.0) pg MCHC (31.0-37.0) g/dL RDW Std Deviation (28.0-62.0) fl RDW Coeff of Charles (11.0-15.0) % Plt Count (150-400) K/uL MPV (7.40-12.00) fL Neut % (Auto) (48.0-80.0) % Lymph % (Auto) (16.0-40.0) % [place] % (Auto) (0.0-15.0) % Eos % (Auto) (0.0-7.0) % Baso % (Auto) (0.0-1.5) % Neut # (Auto) (1.4-5.7) K/uL Lymph # (Auto) (0.6-2.4) K/uL [place] # (Auto) (0.0-0.8) K/uL Eos # (Auto) (0.0-0.7) K/uL Baso # (Auto) (0.0-0.1) K/uL Neutrophils % (Manual) (48.0-80.0) % Lymphocytes % (Manual) (16.0-40.0) % Monocytes % (Manual) (0.0-15.0) % Nucleated RBC % /100WBC Absolute Seg Neuts (1.4-5.7) Lymphocytes # (Manual) (0.6-2.4) Monocytes # (Manual) (0.0-0.8) Nucleated RBCs # K/uL INR VBG pH (7.31-7.41) VBG pCO2 (35-45) mmHG VBG pO2 (30-40) mmHG VBG HCO3 (22-30) mEq/L VBG Total CO2 (41-51) mmol/L VBG Base Excess (-3.0-3.0) Lactate (0.20-2.00) mmol/L Sodium 138 (136-148) mmol/L Potassium 5.0 (3.5-5.1) mmol/L Chloride 102 (98-107) mmol/L Carbon Dioxide 10.4 L (21.0-32.0) mmol/L BUN 26 H (7.0-18.0) mg/dL Creatinine 1.8 H (0.8-1.3) mg/dL Est Cr Clr Drug Dosing 54.55 mL/min Estimated GFR (MDRD) 39.5 ml/min Glucose 509 H* (74-106) mg/dL POC Glucose > 500 H 449 H (60-110) mg/dL Hemoglobin A1c (4.5-6.2) % Calcium 8.5 (8.5-10.1) mg/dL Phosphorus 5.1 H (2.6-4.7) mg/dL Magnesium 2.0 (1.8-2.4) mg/dL Total Bilirubin (0.2-1.0) mg/dL AST (15-37) IU/L ALT (14-63) IU/L Alkaline Phosphatase (46-116) U/L Troponin I (0.000-0.056) ng/mL Total Protein (6.4-8.2) g/dL Albumin (3.4-5.0) g/dL Globulin (2.6-4.0) g/dL Albumin/Globulin Ratio (0.9-1.6) Lipase (73-393) U/L Urine Color Urine Appearance Urine pH (5.0-8.0) Ur Specific Avery (1.001-1.035) Urine Protein (NEGATIVE) mg/dL Urine Glucose (UA) (NEGATIVE) mg/dL Urine Ketones (NEGATIVE) mg/dL Urine Occult Blood (NEGATIVE) Urine Nitrite (NEGATIVE) Urine Bilirubin (NEGATIVE) Urine Ictotest Urine Urobilinogen (<2.0) EU/dL Ur Leukocyte Esterase (NEGATIVE) U Hyaline Cast (Auto) (0-2/LPF) Urine RBC (0-2/HPF) Urine WBC (0-5/HPF) Ur Epithelial Cells (NONE-FEW) Urine Bacteria (NEGATIVE) Urine Mucus (NONE-MOD) SARS-CoV-2 RNA (ABBIE) (NEGATIVE) 11/28/19 11/28/19 11/28/19 Range/Units 08:28 09:58 10:15 WBC (4.0-11.0) K/uL RBC (4.50-5.90) M/uL Hgb (13.0-17.0) g/dL Hct (38.0-50.0) % MCV (80.0-98.0) fL MCH (27.0-32.0) pg MCHC (31.0-37.0) g/dL RDW Std Deviation (28.0-62.0) fl RDW Coeff of Charles (11.0-15.0) % Plt Count (150-400) K/uL MPV (7.40-12.00) fL Neut % (Auto) (48.0-80.0) % Lymph % (Auto) (16.0-40.0) % [place] % (Auto) (0.0-15.0) % Eos % (Auto) (0.0-7.0) % Baso % (Auto) (0.0-1.5) % Neut # (Auto) (1.4-5.7) K/uL Lymph # (Auto) (0.6-2.4) K/uL [place] # (Auto) (0.0-0.8) K/uL Eos # (Auto) (0.0-0.7) K/uL Baso # (Auto) (0.0-0.1) K/uL Neutrophils % (Manual) (48.0-80.0) % Lymphocytes % (Manual) (16.0-40.0) % Monocytes % (Manual) (0.0-15.0) % Nucleated RBC % /100WBC Absolute Seg Neuts (1.4-5.7) Lymphocytes # (Manual) (0.6-2.4) Monocytes # (Manual) (0.0-0.8) Nucleated RBCs # K/uL INR VBG pH 7.22 L (7.31-7.41) VBG pCO2 38 (35-45) mmHG VBG pO2 31 (30-40) mmHG VBG HCO3 16 L (22-30) mEq/L VBG Total CO2 15 L (41-51) mmol/L VBG Base Excess -11.4 L (-3.0-3.0) Lactate (0.20-2.00) mmol/L Sodium (136-148) mmol/L Potassium (3.5-5.1) mmol/L Chloride (98-107) mmol/L Carbon Dioxide (21.0-32.0) mmol/L BUN (7.0-18.0) mg/dL Creatinine (0.8-1.3) mg/dL Est Cr Clr Drug Dosing mL/min Estimated GFR (MDRD) ml/min Glucose (74-106) mg/dL POC Glucose 400 H 282 H (60-110) mg/dL Hemoglobin A1c (4.5-6.2) % Calcium (8.5-10.1) mg/dL Phosphorus (2.6-4.7) mg/dL Magnesium (1.8-2.4) mg/dL Total Bilirubin (0.2-1.0) mg/dL AST (15-37) IU/L ALT (14-63) IU/L Alkaline Phosphatase (46-116) U/L Troponin I (0.000-0.056) ng/mL Total Protein (6.4-8.2) g/dL Albumin (3.4-5.0) g/dL Globulin (2.6-4.0) g/dL Albumin/Globulin Ratio (0.9-1.6) Lipase (73-393) U/L Urine Color Urine Appearance Urine pH (5.0-8.0) Ur Specific Avery (1.001-1.035) Urine Protein (NEGATIVE) mg/dL Urine Glucose (UA) (NEGATIVE) mg/dL Urine Ketones (NEGATIVE) mg/dL Urine Occult Blood (NEGATIVE) Urine Nitrite (NEGATIVE) Urine Bilirubin (NEGATIVE) Urine Ictotest Urine Urobilinogen (<2.0) EU/dL Ur Leukocyte Esterase (NEGATIVE) U Hyaline Cast (Auto) (0-2/LPF) Urine RBC (0-2/HPF) Urine WBC (0-5/HPF) Ur Epithelial Cells (NONE-FEW) Urine Bacteria (NEGATIVE) Urine Mucus (NONE-MOD) SARS-CoV-2 RNA (ABBIE) (NEGATIVE) 11/28/19 11/28/19 11/28/19 Range/Units 10:15 11:04 12:08 WBC (4.0-11.0) K/uL RBC (4.50-5.90) M/uL Hgb (13.0-17.0) g/dL Hct (38.0-50.0) % MCV (80.0-98.0) fL MCH (27.0-32.0) pg MCHC (31.0-37.0) g/dL RDW Std Deviation (28.0-62.0) fl RDW Coeff of Charles (11.0-15.0) % Plt Count (150-400) K/uL MPV (7.40-12.00) fL Neut % (Auto) (48.0-80.0) % Lymph % (Auto) (16.0-40.0) % [place] % (Auto) (0.0-15.0) % Eos % (Auto) (0.0-7.0) % Baso % (Auto) (0.0-1.5) % Neut # (Auto) (1.4-5.7) K/uL Lymph # (Auto) (0.6-2.4) K/uL [place] # (Auto) (0.0-0.8) K/uL Eos # (Auto) (0.0-0.7) K/uL Baso # (Auto) (0.0-0.1) K/uL Neutrophils % (Manual) (48.0-80.0) % Lymphocytes % (Manual) (16.0-40.0) % Monocytes % (Manual) (0.0-15.0) % Nucleated RBC % /100WBC Absolute Seg Neuts (1.4-5.7) Lymphocytes # (Manual) (0.6-2.4) Monocytes # (Manual) (0.0-0.8) Nucleated RBCs # K/uL INR VBG pH (7.31-7.41) VBG pCO2 (35-45) mmHG VBG pO2 (30-40) mmHG VBG HCO3 (22-30) mEq/L VBG Total CO2 (41-51) mmol/L VBG Base Excess (-3.0-3.0) Lactate (0.20-2.00) mmol/L Sodium 140 (136-148) mmol/L Potassium 4.4 (3.5-5.1) mmol/L Chloride 104 (98-107) mmol/L Carbon Dioxide 16.7 L (21.0-32.0) mmol/L BUN 22 H (7.0-18.0) mg/dL Creatinine 1.9 H (0.8-1.3) mg/dL Est Cr Clr Drug Dosing 51.68 mL/min Estimated GFR (MDRD) 37.1 ml/min Glucose 273 H (74-106) mg/dL POC Glucose 182 H 200 H (60-110) mg/dL Hemoglobin A1c (4.5-6.2) % Calcium 8.4 L (8.5-10.1) mg/dL Phosphorus (2.6-4.7) mg/dL Magnesium (1.8-2.4) mg/dL Total Bilirubin (0.2-1.0) mg/dL AST (15-37) IU/L ALT (14-63) IU/L Alkaline Phosphatase (46-116) U/L Troponin I (0.000-0.056) ng/mL Total Protein (6.4-8.2) g/dL Albumin (3.4-5.0) g/dL Globulin (2.6-4.0) g/dL Albumin/Globulin Ratio (0.9-1.6) Lipase (73-393) U/L Urine Color Urine Appearance Urine pH (5.0-8.0) Ur Specific Avery (1.001-1.035) Urine Protein (NEGATIVE) mg/dL Urine Glucose (UA) (NEGATIVE) mg/dL Urine Ketones (NEGATIVE) mg/dL Urine Occult Blood (NEGATIVE) Urine Nitrite (NEGATIVE) Urine Bilirubin (NEGATIVE) Urine Ictotest Urine Urobilinogen (<2.0) EU/dL Ur Leukocyte Esterase (NEGATIVE) U Hyaline Cast (Auto) (0-2/LPF) Urine RBC (0-2/HPF) Urine WBC (0-5/HPF) Ur Epithelial Cells (NONE-FEW) Urine Bacteria (NEGATIVE) Urine Mucus (NONE-MOD) SARS-CoV-2 RNA (ABBIE) (NEGATIVE) 11/28/19 11/28/19 11/28/19 Range/Units 13:01 14:00 14:09 WBC (4.0-11.0) K/uL RBC (4.50-5.90) M/uL Hgb (13.0-17.0) g/dL Hct (38.0-50.0) % MCV (80.0-98.0) fL MCH (27.0-32.0) pg MCHC (31.0-37.0) g/dL RDW Std Deviation (28.0-62.0) fl RDW Coeff of Charles (11.0-15.0) % Plt Count (150-400) K/uL MPV (7.40-12.00) fL Neut % (Auto) (48.0-80.0) % Lymph % (Auto) (16.0-40.0) % [place] % (Auto) (0.0-15.0) % Eos % (Auto) (0.0-7.0) % Baso % (Auto) (0.0-1.5) % Neut # (Auto) (1.4-5.7) K/uL Lymph # (Auto) (0.6-2.4) K/uL [place] # (Auto) (0.0-0.8) K/uL Eos # (Auto) (0.0-0.7) K/uL Baso # (Auto) (0.0-0.1) K/uL Neutrophils % (Manual) (48.0-80.0) % Lymphocytes % (Manual) (16.0-40.0) % Monocytes % (Manual) (0.0-15.0) % Nucleated RBC % /100WBC Absolute Seg Neuts (1.4-5.7) Lymphocytes # (Manual) (0.6-2.4) Monocytes # (Manual) (0.0-0.8) Nucleated RBCs # K/uL INR VBG pH (7.31-7.41) VBG pCO2 (35-45) mmHG VBG pO2 (30-40) mmHG VBG HCO3 (22-30) mEq/L VBG Total CO2 (41-51) mmol/L VBG Base Excess (-3.0-3.0) Lactate (0.20-2.00) mmol/L Sodium 142 (136-148) mmol/L Potassium 3.9 (3.5-5.1) mmol/L Chloride 107 (98-107) mmol/L Carbon Dioxide 23.7 (21.0-32.0) mmol/L BUN 20 H (7.0-18.0) mg/dL Creatinine 1.7 H (0.8-1.3) mg/dL Est Cr Clr Drug Dosing 57.75 mL/min Estimated GFR (MDRD) 42.2 ml/min Glucose 127 H (74-106) mg/dL POC Glucose 137 H 115 H (60-110) mg/dL Hemoglobin A1c (4.5-6.2) % Calcium 8.4 L (8.5-10.1) mg/dL Phosphorus (2.6-4.7) mg/dL Magnesium (1.8-2.4) mg/dL Total Bilirubin (0.2-1.0) mg/dL AST (15-37) IU/L ALT (14-63) IU/L Alkaline Phosphatase (46-116) U/L Troponin I (0.000-0.056) ng/mL Total Protein (6.4-8.2) g/dL Albumin (3.4-5.0) g/dL Globulin (2.6-4.0) g/dL Albumin/Globulin Ratio (0.9-1.6) Lipase (73-393) U/L Urine Color Urine Appearance Urine pH (5.0-8.0) Ur Specific Avery (1.001-1.035) Urine Protein (NEGATIVE) mg/dL Urine Glucose (UA) (NEGATIVE) mg/dL Urine Ketones (NEGATIVE) mg/dL Urine Occult Blood (NEGATIVE) Urine Nitrite (NEGATIVE) Urine Bilirubin (NEGATIVE) Urine Ictotest Urine Urobilinogen (<2.0) EU/dL Ur Leukocyte Esterase (NEGATIVE) U Hyaline Cast (Auto) (0-2/LPF) Urine RBC (0-2/HPF) Urine WBC (0-5/HPF) Ur Epithelial Cells (NONE-FEW) Urine Bacteria (NEGATIVE) Urine Mucus (NONE-MOD) SARS-CoV-2 RNA (ABBIE) (NEGATIVE) 11/28/19 Range/Units 15:02 WBC (4.0-11.0) K/uL RBC (4.50-5.90) M/uL Hgb (13.0-17.0) g/dL Hct (38.0-50.0) % MCV (80.0-98.0) fL MCH (27.0-32.0) pg MCHC (31.0-37.0) g/dL RDW Std Deviation (28.0-62.0) fl RDW Coeff of Charles (11.0-15.0) % Plt Count (150-400) K/uL MPV (7.40-12.00) fL Neut % (Auto) (48.0-80.0) % Lymph % (Auto) (16.0-40.0) % [place] % (Auto) (0.0-15.0) % Eos % (Auto) (0.0-7.0) % Baso % (Auto) (0.0-1.5) % Neut # (Auto) (1.4-5.7) K/uL Lymph # (Auto) (0.6-2.4) K/uL [place] # (Auto) (0.0-0.8) K/uL Eos # (Auto) (0.0-0.7) K/uL Baso # (Auto) (0.0-0.1) K/uL Neutrophils % (Manual) (48.0-80.0) % Lymphocytes % (Manual) (16.0-40.0) % Monocytes % (Manual) (0.0-15.0) % Nucleated RBC % /100WBC Absolute Seg Neuts (1.4-5.7) Lymphocytes # (Manual) (0.6-2.4) Monocytes # (Manual) (0.0-0.8) Nucleated RBCs # K/uL INR VBG pH (7.31-7.41) VBG pCO2 (35-45) mmHG VBG pO2 (30-40) mmHG VBG HCO3 (22-30) mEq/L VBG Total CO2 (41-51) mmol/L VBG Base Excess (-3.0-3.0) Lactate (0.20-2.00) mmol/L Sodium (136-148) mmol/L Potassium (3.5-5.1) mmol/L Chloride (98-107) mmol/L Carbon Dioxide (21.0-32.0) mmol/L BUN (7.0-18.0) mg/dL Creatinine (0.8-1.3) mg/dL Est Cr Clr Drug Dosing mL/min Estimated GFR (MDRD) ml/min Glucose (74-106) mg/dL POC Glucose 115 H (60-110) mg/dL Hemoglobin A1c (4.5-6.2) % Calcium (8.5-10.1) mg/dL Phosphorus (2.6-4.7) mg/dL Magnesium (1.8-2.4) mg/dL Total Bilirubin (0.2-1.0) mg/dL AST (15-37) IU/L ALT (14-63) IU/L Alkaline Phosphatase (46-116) U/L Troponin I (0.000-0.056) ng/mL Total Protein (6.4-8.2) g/dL Albumin (3.4-5.0) g/dL Globulin (2.6-4.0) g/dL Albumin/Globulin Ratio (0.9-1.6) Lipase (73-393) U/L Urine Color Urine Appearance Urine pH (5.0-8.0) Ur Specific Avery (1.001-1.035) Urine Protein (NEGATIVE) mg/dL Urine Glucose (UA) (NEGATIVE) mg/dL Urine Ketones (NEGATIVE) mg/dL Urine Occult Blood (NEGATIVE) Urine Nitrite (NEGATIVE) Urine Bilirubin (NEGATIVE) Urine Ictotest Urine Urobilinogen (<2.0) EU/dL Ur Leukocyte Esterase (NEGATIVE) U Hyaline Cast (Auto) (0-2/LPF) Urine RBC (0-2/HPF) Urine WBC (0-5/HPF) Ur Epithelial Cells (NONE-FEW) Urine Bacteria (NEGATIVE) Urine Mucus (NONE-MOD) SARS-CoV-2 RNA (ABBIE) (NEGATIVE) Med Orders - Current: Current Medications Albuterol/Ipratropium (Duoneb 3.0-0.5 Mg/3 Ml) 3 ml NEB Q4HRRT PRN PRN Reason: Shortness Of Breath/wheezing Amiodarone HCl (Cordarone) 200 mg PO BID [facility] Last Admin: 11/28/19 09:07 Dose: 200 mg Documented by: Aspirin (Aspirin) 81 mg PO DAILY [facility] Last Admin: 11/28/19 13:30 Dose: Not Given Documented by: Atorvastatin Calcium (Lipitor) 10 mg PO DAILY [facility] Last Admin: 11/28/19 13:31 Dose: Not Given Documented by: Clopidogrel Bisulfate (Plavix) 75 mg PO DAILY [facility] Last Admin: 11/28/19 13:32 Dose: Not Given Documented by: Duloxetine HCl (Cymbalta) 30 mg PO DAILY [facility] Last Admin: 11/28/19 13:31 Dose: Not Given Documented by: Sodium Chloride (Normal Saline) 500 mls @ 999 mls/hr IV .BOLUS [facility] Last Admin: 11/27/19 15:29 Dose: 999 mls/hr Documented by: Sodium Chloride (Normal Saline) 500 mls @ 999 mls/hr IV .BOLUS [facility] Last Admin: 11/27/19 17:01 Dose: 999 mls/hr Documented by: Piperacillin Sod/Tazobactam (Sod 3.375 gm/ Sodium Chloride) 50 mls @ 100 mls/hr IV Q8H [facility] Last Admin: 11/28/19 12:10 Dose: 100 mls/hr Documented by: Pantoprazole Sodium 40 mg/ (Sodium Chloride) 10 mls @ 300 mls/hr IV Q12H [facility] Last Admin: 11/28/19 10:17 Dose: 300 mls/hr Documented by: Insulin Human Regular 100 unit (/ Sodium Chloride) 100 mls @ 6 mls/hr IV TITRATE ESTEPHANIA; Protocol Last Titration: 11/28/19 15:04 Dose: 0 units/hr, 0 mls/hr Documented by: Dextrose/Sodium Chloride (Dextrose 5%-1/2 Ns) 1,000 mls @ 150 mls/hr IV ASDIRECTED [facility] Last Admin: 11/28/19 14:29 Dose: 150 mls/hr Documented by: Insulin Aspart (Novolog) 0 unit SUBCUT TIDAC [facility]; Protocol Last Admin: 11/28/19 12:44 Dose: Not Given Documented by: Isosorbide Mononitrate (Imdur) 30 mg PO DAILY [facility] Last Admin: 11/28/19 13:31 Dose: Not Given Documented by: Metoprolol Tartrate (Lopressor) 50 mg PO BID [facility] Last Admin: 11/28/19 09:07 Dose: 50 mg Documented by: Morphine Sulfate (Morphine) 2 mg IVPUSH Q2H PRN PRN Reason: Pain (severe 7-10) Stop: 11/28/19 19:30 Last Admin: 11/28/19 08:45 Dose: 2 mg Documented by: Ondansetron HCl (Zofran) 4 mg IVPUSH Q4H PRN PRN Reason: Nausea/Vomiting Last Admin: 11/28/19 00:23 Dose: 4 mg Documented by: Ranolazine (Ranexa) 500 mg PO BID [facility] Last Admin: 11/28/19 13:33 Dose: Not Given Documented by: Sodium Chloride (Saline Flush) 10 ml FLUSH ASDIRECTED PRN PRN Reason: Keep Vein Open Last Admin: 11/27/19 15:35 Dose: 10 ml Documented by: Sodium Chloride (Saline Flush) 2.5 ml FLUSH ASDIRECTED PRN PRN Reason: Keep Vein Open Last Admin: 11/27/19 15:35 Dose: 2.5 ml Documented by: Sodium Chloride (Saline Flush) 2.5 ml FLUSH ASDIRECTED PRN PRN Reason: Keep Vein Open Last Admin: 11/27/19 15:35 Dose: 2.5 ml Documented by: Sucralfate (Carafate) 1 gm PO QID [facility] Last Admin: 11/28/19 14:24 Dose: 1 gm Documented by: Topiramate (Topamax) 25 mg PO BID [facility] Last Admin: 11/28/19 13:33 Dose: Not Given Documented by: Discontinued Medications Amiodarone HCl (Cordarone) 200 mg PO ONETIME ONE Stop: 11/28/19 02:52 Last Admin: 11/28/19 03:00 Dose: 200 mg Documented by: Diphenhydramine HCl (Benadryl) 25 mg IVPUSH ONETIME ONE Stop: 11/27/19 15:27 Last Admin: 11/27/19 15:32 Dose: 25 mg Documented by: Famotidine (Pepcid) 20 mg IVPUSH ONETIME ONE Stop: 11/27/19 18:48 Last Admin: 11/27/19 18:54 Dose: 20 mg Documented by: Famotidine (Pepcid) Confirm Administered Dose 20 mg .ROUTE .STK-MED ONE Stop: 11/27/19 18:50 Last Admin: 11/27/19 19:01 Dose: Not Given Documented by: Lactated Ringer's (Ringers, Lactated) 1,000 mls @ 125 mls/hr IV ASDIRECTED ESTEPHANIA Last Admin: 11/28/19 06:43 Dose: 125 mls/hr Documented by: Pantoprazole Sodium 40 mg/ (Sodium Chloride) 10 mls @ 300 mls/hr IV Q24H [facility] Lactated Ringer's (Ringers, Lactated) 500 mls @ 999 mls/hr IV .BOLUS ONE Stop: 11/27/19 21:04 Last Admin: 11/27/19 21:10 Dose: 999 mls/hr Documented by: Sodium Chloride (Normal Saline) 1,000 mls @ 999 mls/hr IV .Bolus ONE Stop: 11/28/19 09:21 Last Admin: 11/28/19 10:05 Dose: Not Given Documented by: Lactated Ringer's (Ringers, Lactated) 1,000 mls @ 999 mls/hr IV .BOLUS ONE Stop: 11/28/19 09:32 Last Admin: 11/28/19 08:40 Dose: 999 mls/hr Documented by: Lactated Ringer's (Ringers, Lactated) 1,000 mls @ 999 mls/hr IV .BOLUS ONE Stop: 11/28/19 10:36 Last Admin: 11/28/19 09:57 Dose: 999 mls/hr Documented by: Insulin Detemir (Levemir) 5 unit SUBCUT BEDTIME ONE Stop: 11/27/19 23:31 Last Admin: 11/27/19 23:58 Dose: 5 units Documented by: Lorazepam (Ativan) 1 mg IVPUSH ONETIME ONE Stop: 11/28/19 01:03 Last Admin: 11/28/19 01:34 Dose: 1 mg Documented by: Metoclopramide HCl (Reglan) 10 mg IVPUSH ONETIME ONE Stop: 11/27/19 15:26 Last Admin: 11/27/19 15:30 Dose: 10 mg Documented by: Metoprolol Tartrate (Lopressor) 5 mg IVPUSH ONETIME ONE Stop: 11/28/19 02:28 Last Admin: 11/28/19 02:38 Dose: 5 mg Documented by: Metoprolol Tartrate (Lopressor) 50 mg PO ONETIME ONE Stop: 11/28/19 02:30 Last Admin: 11/28/19 02:40 Dose: 50 mg Documented by: Morphine Sulfate (Morphine) 1 mg IVPUSH Q2H PRN PRN Reason: Pain (severe 7-10) Stop: 11/28/19 19:30 Last Admin: 11/27/19 22:27 Dose: 1 mg Documented by: Ondansetron HCl (Zofran) 4 mg IVPUSH ONETIME ONE Stop: 11/27/19 16:55 Last Admin: 11/27/19 17:02 Dose: 4 mg Documented by: Prochlorperazine Edisylate (Compazine) 5 mg IVPUSH ONETIME ONE Stop: 11/27/19 18:48 Last Admin: 11/27/19 18:52 Dose: 5 mg Documented by: Prochlorperazine Edisylate (Compazine) Confirm Administered Dose 10 mg .ROUTE .STK-MED ONE Stop: 11/27/19 18:50 Last Admin: 11/27/19 18:55 Dose: Not Given Documented by: - Exam General: Alert, Oriented Lungs: Clear to Auscultation, Normal Respiratory Effort Cardiovascular: Regular Rate, Regular Rhythm GI/Abdominal Exam: Soft, Tender, Other (Patient has lower abdominal pain on palpation) Back Exam: No: CVA Tenderness (L), CVA Tenderness (R) Extremities: Normal Range of Motion, No Pedal Edema Skin: Warm, Dry Psy/Mental Status: Alert Sepsis Event Note - Evaluation Sepsis Screening Result: Possible Sepsis Risk - Focused Exam Vital Signs: Vital Signs Temp Pulse Pulse Resp BP BP BP 11/28/19 09:07 87 103/66 11/28/19 07:00 98.8 F 87 18 103/66 11/28/19 05:00 98.6 F 92 18 118/70 Pulse Ox 11/28/19 09:07 11/28/19 07:00 100 11/28/19 05:00 96 - Problem List Review Problem List Initiated/Reviewed/Updated: Yes - My Orders Last 24 Hours: My Active Orders 11/28/19 07:05 Communication Order [RC] STAT 11/28/19 07:08 Communication Order [RC] PRN 11/28/19 09:15 Welch Catheter Insertion [Insert Urinary Catheter] [OM.PC] Q24H 11/28/19 09:16 Urinary Catheter Assessment [RC] ASDIRECTED 11/28/19 09:20 Transfer Patient (Change bed) [ADT] Routine 11/28/19 09:30 Insulin Regular, Human [NovoLIN R] 100 unit Sodium Chloride 0.9% [Normal Saline] 99 ml IV TITRATE 11/28/19 10:00 Blood Glucose Check, Bedside [RC] Q1HR 11/28/19 10:29 Glucose Management IV Reflex [OM.PC] Click to Edit 11/28/19 10:30 Communication Order [RC] ASDIRECTED Diabetes Education [RC] Click to Edit Notify Provider [RC] PRN 11/28/19 10:33 Communication Order [RC] ASDIRECTED Diabetes Education [RC] Click to Edit Notify Provider [RC] PRN 11/28/19 14:30 Dextrose 5%-0.45% NaCl [Dextrose 5%-1/2 NS] 1,000 ml IV ASDIRECTED 11/28/19 15:33 Code Status [Resuscitation Status] Routine 11/28/19 Dinner [place] [employer] Diet [DIET] 11/29/19 05:11 BASIC METABOLIC PANEL,BMP [CHEM] AM CBC WITH AUTO DIFF [HEME] AM MAGNESIUM [CHEM] AM PHOSPHORUS [CHEM] AM - Plan Plan:: Assessment/Plan: DKA- DKA/Glucose management protocol, 2L LR Bolus, D5 1/2 NS 150ml/hr, BMP X 4. Nausea/Vomiting- I believe this is secondary to patients DKA. Will correct acidosis, zofran 4mg Q4hr. IV PPI. Morphine 2mg for pain. Advance to diabetic diet as tolerated Urinary retention- Straight Catheter, will insert Welch if patient continue to retain urine. LATOYA- Secondary to dehydration. Bolus fluids and provide maintenance fluids. Recheck bmp in the AM Diabetes Type 1- SS insulin, Levemir 5units bedtime <Beverly Meehan - Last Filed: 12/02/19 20:05> - General Info Subjective Update: I have seen and evaluated the patient and agree with the residents note unless specified in my note - Patient Data Vitals - Most Recent: Last Vital Signs Temp 35.7 C L 12/02/19 15:45 Pulse 68 12/02/19 15:45 Resp 22 H 12/02/19 15:45 BP 97/56 L 12/02/19 15:45 Pulse Ox 97 12/02/19 15:45 I&O - Last 24 Hours: Intake & Output 12/02/19 12/02/19 12/02/19 06:59 14:59 22:59 Intake Total 100 850 Output Total 900 750 Balance -800 100 Lab Results Last 24 Hours: Laboratory Results - last 24 hr 12/02/19 12/02/19 12/02/19 Range/Units 05:00 05:00 05:58 WBC 2.74 L (4.0-11.0) K/uL RBC 3.94 L (4.50-5.90) M/uL Hgb 12.7 L (13.0-17.0) g/dL Hct 36.7 L (38.0-50.0) % MCV 93.1 (80.0-98.0) fL MCH 32.2 H (27.0-32.0) pg MCHC 34.6 (31.0-37.0) g/dL RDW Std Deviation 41.4 (28.0-62.0) fl RDW Coeff of Charles 12 (11.0-15.0) % Plt Count 171 (150-400) K/uL MPV 9.70 (7.40-12.00) fL Neut % (Auto) 38.6 L (48.0-80.0) % Lymph % (Auto) 50.0 H (16.0-40.0) % [place] % (Auto) 7.7 (0.0-15.0) % Eos % (Auto) 2.6 (0.0-7.0) % Baso % (Auto) 1.1 (0.0-1.5) % Neut # (Auto) 1.1 L (1.4-5.7) K/uL Lymph # (Auto) 1.4 (0.6-2.4) K/uL [place] # (Auto) 0.2 (0.0-0.8) K/uL Eos # (Auto) 0.1 (0.0-0.7) K/uL Baso # (Auto) 0.0 (0.0-0.1) K/uL Nucleated RBC % 0.0 /100WBC Nucleated RBCs # 0 K/uL Sodium 143 (136-148) mmol/L Potassium 3.0 L (3.5-5.1) mmol/L Chloride 107 (98-107) mmol/L Carbon Dioxide 28.4 (21.0-32.0) mmol/L BUN 5 L (7.0-18.0) mg/dL Creatinine 0.9 (0.8-1.3) mg/dL Est Cr Clr Drug Dosing 109.09 mL/min Estimated GFR (MDRD) > 60.0 ml/min Glucose 127 H (74-106) mg/dL POC Glucose 120 H (60-110) mg/dL Calcium 8.2 L (8.5-10.1) mg/dL Magnesium 1.8 (1.8-2.4) mg/dL 12/02/19 12/02/19 12/02/19 Range/Units 13:00 15:29 17:18 WBC (4.0-11.0) K/uL RBC (4.50-5.90) M/uL Hgb (13.0-17.0) g/dL Hct (38.0-50.0) % MCV (80.0-98.0) fL MCH (27.0-32.0) pg MCHC (31.0-37.0) g/dL RDW Std Deviation (28.0-62.0) fl RDW Coeff of Charles (11.0-15.0) % Plt Count (150-400) K/uL MPV (7.40-12.00) fL Neut % (Auto) (48.0-80.0) % Lymph % (Auto) (16.0-40.0) % [place] % (Auto) (0.0-15.0) % Eos % (Auto) (0.0-7.0) % Baso % (Auto) (0.0-1.5) % Neut # (Auto) (1.4-5.7) K/uL Lymph # (Auto) (0.6-2.4) K/uL [place] # (Auto) (0.0-0.8) K/uL Eos # (Auto) (0.0-0.7) K/uL Baso # (Auto) (0.0-0.1) K/uL Nucleated RBC % /100WBC Nucleated RBCs # K/uL Sodium (136-148) mmol/L Potassium (3.5-5.1) mmol/L Chloride (98-107) mmol/L Carbon Dioxide (21.0-32.0) mmol/L BUN (7.0-18.0) mg/dL Creatinine (0.8-1.3) mg/dL Est Cr Clr Drug Dosing mL/min Estimated GFR (MDRD) ml/min Glucose (74-106) mg/dL POC Glucose 268 H 264 H 318 H (60-110) mg/dL Calcium (8.5-10.1) mg/dL Magnesium (1.8-2.4) mg/dL Shin Results Last 24 Hours: Microbiology 11/27/19 20:10 Aerobic Blood Culture - Preliminary Blood - Venous - Lab Draw NO GROWTH AFTER 4 DAYS Anaerobic Blood Culture - Preliminary NO GROWTH AFTER 4 DAYS 11/27/19 20:00 Aerobic Blood Culture - Preliminary Blood - Venous NO GROWTH AFTER 4 DAYS Anaerobic Blood Culture - Preliminary NO GROWTH AFTER 4 DAYS 11/27/19 15:00 Helicobacter pylori Antigen - Final Stool / Feces Med Orders - Current: Current Medications Albuterol/Ipratropium (Duoneb 3.0-0.5 Mg/3 Ml) 3 ml NEB Q4HRRT PRN PRN Reason: Shortness Of Breath/wheezing Amiodarone HCl (Cordarone) 200 mg PO BID [facility] Last Admin: 12/02/19 09:02 Dose: 200 mg Documented by: Aspirin (Aspirin) 81 mg PO DAILY [facility] Last Admin: 12/02/19 09:02 Dose: 81 mg Documented by: Atorvastatin Calcium (Lipitor) 10 mg PO DAILY [facility] Last Admin: 12/02/19 09:01 Dose: 10 mg Documented by: Clopidogrel Bisulfate (Plavix) 75 mg PO DAILY [facility] Last Admin: 12/02/19 09:02 Dose: 75 mg Documented by: Dextrose/Water (Dextrose 50% In Water) 25 ml IVPUSH ASDIRECTED PRN PRN Reason: Hypoglycemia Last Admin: 11/29/19 05:39 Dose: 25 ml Documented by: Duloxetine HCl (Cymbalta) 30 mg PO DAILY [facility] Last Admin: 12/02/19 09:02 Dose: 30 mg Documented by: Pantoprazole Sodium 40 mg/ (Sodium Chloride) 10 mls @ 300 mls/hr IV Q12H [facility] Last Admin: 12/02/19 13:12 Dose: 300 mls/hr Documented by: Sodium Chloride (Normal Saline) 500 mls @ 999 mls/hr IV .BOLUS [facility] Lactated Ringer's (Ringers, Lactated) 1,000 mls @ 100 mls/hr IV ASDIRECTED [facility] Last Admin: 12/02/19 09:11 Dose: 100 mls/hr Documented by: Insulin Aspart (Novolog) 0 unit SUBCUT TIDAC [facility]; Protocol Last Admin: 12/02/19 17:19 Dose: 8 units Documented by: Insulin Detemir (Levemir) 10 unit SUBCUT BEDTIME [facility] Last Admin: 12/01/19 21:41 Dose: 10 unit Documented by: Isosorbide Mononitrate (Imdur) 30 mg PO DAILY [facility] Last Admin: 12/02/19 09:01 Dose: 30 mg Documented by: Metoclopramide HCl (Reglan) 5 mg PO Q8H [facility] Last Admin: 12/02/19 15:41 Dose: 5 mg Documented by: Metoclopramide HCl (Reglan) 10 mg IM Q6H PRN PRN Reason: Nausea/Vomiting Metoprolol Tartrate (Lopressor) 25 mg PO BID [facility] Last Admin: 12/02/19 08:59 Dose: 25 mg Documented by: Morphine Sulfate (Morphine) 2 mg IVPUSH Q2H PRN PRN Reason: Pain Last Admin: 12/01/19 20:11 Dose: 2 mg Documented by: Oxycodone HCl (Oxycodone) 5 mg PO Q8H [facility] Last Admin: 12/02/19 17:15 Dose: 5 mg Documented by: Promethazine HCl (Phenergan) 25 mg IM Q6H PRN PRN Reason: Nausea Last Admin: 12/01/19 20:10 Dose: 25 mg Documented by: Ranolazine (Ranexa) 500 mg PO BID [facility] Last Admin: 12/02/19 09:01 Dose: 500 mg Documented by: Sodium Chloride (Saline Flush) 2.5 ml FLUSH ASDIRECTED PRN PRN Reason: Keep Vein Open Last Admin: 11/27/19 15:35 Dose: 2.5 ml Documented by: Sodium Chloride (Saline Flush) 2.5 ml FLUSH ASDIRECTED PRN PRN Reason: Keep Vein Open Last Admin: 11/27/19 15:35 Dose: 2.5 ml Documented by: Sucralfate (Carafate) 1 gm PO QID [facility] Last Admin: 12/02/19 17:15 Dose: 1 gm Documented by: Tamsulosin HCl (Flomax) 0.4 mg PO BEDTIME [facility] Last Admin: 12/02/19 00:32 Dose: 0.4 mg Documented by: Topiramate (Topamax) 25 mg PO BID [facility] Last Admin: 12/02/19 09:02 Dose: 25 mg Documented by: Discontinued Medications Amiodarone HCl (Cordarone) 200 mg PO ONETIME ONE Stop: 11/28/19 02:52 Last Admin: 11/28/19 03:00 Dose: 200 mg Documented by: Bisacodyl (Dulcolax) 10 mg RECTAL ONETIME ONE Stop: 11/30/19 09:58 Last Admin: 11/30/19 10:43 Dose: 10 mg Documented by: Bisacodyl (Dulcolax) 10 mg RECTAL ONETIME ONE Stop: 12/01/19 09:21 Last Admin: 12/01/19 10:22 Dose: 10 mg Documented by: Al Hydroxide/Mg Hydroxide 15 (ml/ Lidocaine HCl 5 ml) 0 ml PO ONETIME ONE Stop: 11/30/19 09:16 Last Admin: 11/30/19 09:39 Dose: 20 each Documented by: Diphenhydramine HCl (Benadryl) 25 mg IVPUSH ONETIME ONE Stop: 11/27/19 15:27 Last Admin: 11/27/19 15:32 Dose: 25 mg Documented by: Diphenhydramine HCl (Benadryl) 25 mg IVPUSH ONETIME ONE Stop: 11/30/19 19:10 Last Admin: 11/30/19 19:27 Dose: 25 mg Documented by: Famotidine (Pepcid) 20 mg IVPUSH ONETIME ONE Stop: 11/27/19 18:48 Last Admin: 11/27/19 18:54 Dose: 20 mg Documented by: Famotidine (Pepcid) Confirm Administered Dose 20 mg .ROUTE .STK-MED ONE Stop: 11/27/19 18:50 Last Admin: 11/27/19 19:01 Dose: Not Given Documented by: Haloperidol Lactate (Haldol) 1 mg IM ONETIME ONE Stop: 11/30/19 19:08 Last Admin: 11/30/19 19:25 Dose: 1 mg Documented by: Hydromorphone HCl (Dilaudid) 1 mg IVPUSH ONETIME ONE Stop: 11/30/19 08:36 Last Admin: 11/30/19 08:41 Dose: 1 mg Documented by: Sodium Chloride (Normal Saline) 500 mls @ 999 mls/hr IV .BOLUS [facility] Last Admin: 11/28/19 23:29 Dose: 999 mls/hr Documented by: Sodium Chloride (Normal Saline) 500 mls @ 999 mls/hr IV .BOLUS [facility] Last Admin: 11/27/19 17:01 Dose: 999 mls/hr Documented by: Lactated Ringer's (Ringers, Lactated) 1,000 mls @ 125 mls/hr IV ASDIRECTED [facility] Last Admin: 11/28/19 06:43 Dose: 125 mls/hr Documented by: Pantoprazole Sodium 40 mg/ (Sodium Chloride) 10 mls @ 300 mls/hr IV Q24H ESTEPHANIA Piperacillin Sod/Tazobactam (Sod 3.375 gm/ Sodium Chloride) 50 mls @ 100 mls/hr IV Q8H [facility] Last Admin: 11/29/19 03:56 Dose: 100 mls/hr Documented by: Lactated Ringer's (Ringers, Lactated) 500 mls @ 999 mls/hr IV .BOLUS ONE Stop: 11/27/19 21:04 Last Admin: 11/27/19 21:10 Dose: 999 mls/hr Documented by: Sodium Chloride (Normal Saline) 1,000 mls @ 999 mls/hr IV .Bolus ONE Stop: 11/28/19 09:21 Last Admin: 11/28/19 10:05 Dose: Not Given Documented by: Lactated Ringer's (Ringers, Lactated) 1,000 mls @ 999 mls/hr IV .BOLUS ONE Stop: 11/28/19 09:32 Last Admin: 11/28/19 08:40 Dose: 999 mls/hr Documented by: Insulin Human Regular 100 unit (/ Sodium Chloride) 100 mls @ 6 mls/hr IV TITRATE [facility]; Protocol Last Titration: 11/28/19 15:04 Dose: 0 units/hr, 0 mls/hr Documented by: Lactated Ringer's (Ringers, Lactated) 1,000 mls @ 999 mls/hr IV .BOLUS ONE Stop: 11/28/19 10:36 Last Admin: 11/28/19 09:57 Dose: 999 mls/hr Documented by: Dextrose/Sodium Chloride (Dextrose 5%-1/2 Ns) 1,000 mls @ 150 mls/hr IV ASDIRECTED [facility] Last Admin: 11/28/19 14:29 Dose: 150 mls/hr Documented by: Potassium Chloride/Sodium Chloride (Normal Saline With 40 Meq Kcl) 1,000 mls @ 125 mls/hr IV Q8H [facility] Stop: 11/29/19 17:29 Last Admin: 11/29/19 10:15 Dose: 125 mls/hr Documented by: Potassium Chloride 40 meq/Magnesium Sulfate 2 gm/ Sodium Chloride 524 mls @ 131 mls/hr IV ONETIME ONE Stop: 11/30/19 12:04 Last Admin: 11/30/19 18:56 Dose: Not Given Documented by: Potassium Chloride 40 meq/Magnesium Sulfate 2 gm/ Sodium Chloride 524 mls @ 131 mls/hr IV ONETIME ONE Stop: 11/30/19 12:14 Last Admin: 11/30/19 09:39 Dose: 131 mls/hr Documented by: Magnesium Sulfate (Magnesium Sulfate In Water Premix) 2 gm in 50 mls @ 50 mls/hr IV ONETIME ONE Stop: 12/02/19 10:44 Last Admin: 12/02/19 13:17 Dose: Not Given Documented by: Magnesium Sulfate (Magnesium Sulfate In Water Premix) 2 gm in 50 mls @ 50 mls/hr IV ONETIME ONE Stop: 12/02/19 13:59 Last Admin: 12/02/19 13:07 Dose: 50 mls/hr Documented by: Potassium Chloride 40 meq/ (Premix) 100 mls @ 25 mls/hr IV ONETIME ONE Stop: 12/02/19 18:29 Last Admin: 12/02/19 14:58 Dose: 25 mls/hr Documented by: Insulin Aspart (Novolog) 15 unit SUBCUT ONETIME ONE Stop: 11/28/19 23:25 Last Admin: 11/28/19 23:39 Dose: Not Given Documented by: Insulin Aspart (Novolog) 15 unit SUBCUT ONETIME ONE Stop: 11/28/19 23:29 Last Admin: 11/28/19 23:30 Dose: 15 unit Documented by: Insulin Aspart (Novolog) 10 unit SUBCUT ONETIME ONE Stop: 11/29/19 00:20 Last Admin: 11/29/19 00:24 Dose: 10 unit Documented by: Insulin Aspart (Novolog) 5 unit SUBCUT TID [facility] Last Admin: 11/29/19 15:00 Dose: 5 units Documented by: Insulin Aspart (Novolog) 8 unit SUBCUT NOW STA Stop: 11/29/19 15:14 Last Admin: 11/29/19 15:17 Dose: 8 unit Documented by: Insulin Aspart (Novolog) 5 unit SUBCUT TIDMEALS [facility] Last Admin: 11/30/19 18:56 Dose: Not Given Documented by: Insulin Detemir (Levemir) 5 unit SUBCUT BEDTIME ONE Stop: 11/27/19 23:31 Last Admin: 11/27/19 23:58 Dose: 5 units Documented by: Lorazepam (Ativan) 1 mg IVPUSH ONETIME ONE Stop: 11/28/19 01:03 Last Admin: 11/28/19 01:34 Dose: 1 mg Documented by: Lorazepam (Ativan) 1 mg IVPUSH ONETIME ONE Stop: 11/30/19 19:10 Last Admin: 11/30/19 19:26 Dose: 1 mg Documented by: Metoclopramide HCl (Reglan) 10 mg IVPUSH ONETIME ONE Stop: 11/27/19 15:26 Last Admin: 11/27/19 15:30 Dose: 10 mg Documented by: Metoclopramide HCl (Reglan) 5 mg PO QIDACANDBED [facility] Last Admin: 11/30/19 18:57 Dose: Not Given Documented by: Metoclopramide HCl (Reglan) 5 mg IVPUSH Q6H [facility] Last Admin: 12/01/19 05:43 Dose: 5 mg Documented by: Metoclopramide HCl (Reglan) 10 mg IVPUSH Q6H [facility] Last Admin: 12/02/19 13:14 Dose: 10 mg Documented by: Metoprolol Tartrate (Lopressor) 50 mg PO BID [facility] Last Admin: 11/29/19 09:10 Dose: Not Given Documented by: Metoprolol Tartrate (Lopressor) 5 mg IVPUSH ONETIME ONE Stop: 11/28/19 02:28 Last Admin: 11/28/19 02:38 Dose: 5 mg Documented by: Metoprolol Tartrate (Lopressor) 50 mg PO ONETIME ONE Stop: 11/28/19 02:30 Last Admin: 11/28/19 02:40 Dose: 50 mg Documented by: Morphine Sulfate (Morphine) 1 mg IVPUSH Q2H PRN PRN Reason: Pain (severe 7-10) Stop: 11/28/19 19:30 Last Admin: 11/27/19 22:27 Dose: 1 mg Documented by: Morphine Sulfate (Morphine) 2 mg IVPUSH Q2H PRN PRN Reason: Pain (severe 7-10) Stop: 11/28/19 19:30 Last Admin: 11/28/19 08:45 Dose: 2 mg Documented by: Morphine Sulfate (Morphine) 4 mg IVPUSH ONETIME ONE Stop: 11/30/19 08:03 Last Admin: 11/30/19 08:12 Dose: 4 mg Documented by: Ondansetron HCl (Zofran) 4 mg IVPUSH ONETIME ONE Stop: 11/27/19 16:55 Last Admin: 11/27/19 17:02 Dose: 4 mg Documented by: Ondansetron HCl (Zofran) 4 mg IVPUSH Q4H PRN PRN Reason: Nausea/Vomiting Last Admin: 11/28/19 00:23 Dose: 4 mg Documented by: Potassium Chloride (Klor-Con 10) 40 meq PO ONETIME ONE Stop: 11/29/19 17:01 Last Admin: 11/29/19 17:13 Dose: 40 meq Documented by: Prochlorperazine Edisylate (Compazine) 5 mg IVPUSH ONETIME ONE Stop: 11/27/19 18:48 Last Admin: 11/27/19 18:52 Dose: 5 mg Documented by: Prochlorperazine Edisylate (Compazine) Confirm Administered Dose 10 mg .ROUTE .STK-MED ONE Stop: 11/27/19 18:50 Last Admin: 11/27/19 18:55 Dose: Not Given Documented by: Sodium Bicarbonate (Sodium Bicarbonate 8.4%) 50 meq IVPUSH ONETIME ONE Stop: 11/29/19 00:14 Last Admin: 11/29/19 00:28 Dose: 50 meq Documented by: Sodium Chloride (Saline Flush) 10 ml FLUSH ASDIRECTED PRN PRN Reason: Keep Vein Open Last Admin: 11/27/19 15:35 Dose: 10 ml Documented by: Sodium Phosphate (Neutra-Phos) 250 mg PO QID ESTEPHANIA Last Admin: 12/01/19 05:47 Dose: Not Given Documented by: Sepsis Event Note - Focused Exam Vital Signs: Vital Signs Temp Pulse Pulse Resp BP BP Pulse Ox 12/02/19 15:45 35.7 C L 68 22 H 97/56 L 97 12/02/19 12:00 36.1 C 74 16 121/80 12/02/19 09:01 123/68 12/02/19 08:59 72 123/68 - Problem List & Annotations (1) Nausea & vomiting SNOMED Code(s): 31192260 Code(s): R11.2 - NAUSEA WITH VOMITING, UNSPECIFIED Status: Acute Current Visit: Yes (2) Abdominal pain SNOMED Code(s): 90165309 Code(s): R10.9 - UNSPECIFIED ABDOMINAL PAIN Status: Acute Current Visit: No Qualifiers: Abdominal location: right upper quadrant Qualified Code(s): R10.11 - Right upper quadrant pain (3) Bloody emesis SNOMED Code(s): 0777559 Code(s): K92.0 - HEMATEMESIS Status: Acute Current Visit: Yes (4) Gastroparesis SNOMED Code(s): 772085385 Code(s): K31.84 - GASTROPARESIS Status: Acute Current Visit: No (5) DM type 1 (diabetes mellitus, type 1) SNOMED Code(s): 45365015 Code(s): E10.9 - TYPE 1 DIABETES MELLITUS WITHOUT COMPLICATIONS Status: Chronic Current Visit: No Qualifiers: Diabetes mellitus complication status: with hyperglycemia Qualified Code(s) : E10.65 - Type 1 diabetes mellitus with hyperglycemia (6) History of coronary artery disease SNOMED Code(s): 625216267 Code(s): Z86.79 - PERSONAL HISTORY OF OTHER DISEASES OF THE CIRCULATORY SYSTEM Status: Chronic Current Visit: No (7) Hx of cardiac pacemaker SNOMED Code(s): 730288916 Code(s): Z95.0 - PRESENCE OF CARDIAC PACEMAKER Status: Chronic Current Visit: No (8) LATOYA (acute kidney injury) SNOMED Code(s): 20113192, 54421918 Code(s): N17.9 - ACUTE KIDNEY FAILURE, UNSPECIFIED Status: Resolved Current Visit: Yes (9) DKA (diabetic ketoacidoses) SNOMED Code(s): 788203908, 552266702 Code(s): E11.10 - TYPE 2 DIABETES MELLITUS WITH KETOACIDOSIS WITHOUT COMA Status: Acute Current Visit: Yes - My Orders Last 24 Hours: My Active Orders 12/01/19 21:30 Lactated Ringers [Ringers, Lactated] 1,000 ml IV ASDIRECTED 12/02/19 09:45 oxyCODONE 5 mg PO Q8H 12/02/19 14:51 Metoclopramide [Reglan] 10 mg IM Q6H PRN 12/02/19 15:00 Metoclopramide [Reglan] 5 mg PO Q8H 12/02/19 Dinner Soft Diet [DIET] 12/02/19 18:23 Ready for Discharge [RC] PER UNIT ROUTINE
[2019-11-28] MEDS: Insulin Detemir 100 Units/ML 3 ML Pen SUBCUT SCH (20:42)
[2019-11-28 21:19] LABS: CARBON DIOXIDE,CO2 21.1 mmol/L (21.0-32.0); POTASSIUM,K 4.1 mmol/L (3.5-5.1)
[2019-11-28] MEDS ORDERED: Insulin Aspart 100 Units/ML 3 ML Pen SUBCUT ONE ×2 (23:24→23:28)
[2019-11-28] MEDS: Sodium Chloride 0.9% 500 ML IV SCH (23:29)
[2019-11-28] MEDS ORDERED: Sodium Chloride 0.9% 500 ML IV SCH (23:30)
[2019-11-29] MEDS ORDERED: Sodium Bicarbonate 8.4% 50 MEQ/50 ML Syringe IVPUSH ONE (00:13)
[2019-11-29] MEDS ORDERED: 50% Dextrose in Water 50 ML Syringe IVPUSH PRN (00:15)
[2019-11-29] MEDS ORDERED: Insulin Aspart 100 Units/ML 3 ML Pen SUBCUT ONE (00:19)
[2019-11-29] MEDS: Insulin Aspart 100 Units/ML 3 ML Pen SUBCUT SCH ×7 (01:39→17:59)
[2019-11-29] MEDS: Piperacillin/Tazobactam 3.375 GM in Sodium Chloride 0.9% 50 ML IV SCH (03:56)
[2019-11-29] MEDS: Sucralfate 1 GM Tab PO SCH ×5 (05:30→23:39)
[2019-11-29 06:09] LABS: CARBON DIOXIDE,CO2 27.9 mmol/L (21.0-32.0)
[2019-11-29] MEDS: Isosorbide Mononitrate 30 MG Tab.ER PO SCH (09:08)
[2019-11-29] MEDS: Metoprolol Tartrate 25 MG Tab PO SCH ×3 (09:10→21:14)
[2019-11-29] MEDS: Topiramate 50 MG Tab PO SCH ×2 (09:11→21:15)
[2019-11-29] MEDS ORDERED: Sodium Chloride 0.9% with KCl 1,000 ML IV SCH (09:30)
[2019-11-29] MEDS: Pantoprazole 40 MG in Sodium Chloride 0.9% 10 ML IV SCH ×2 (10:16→23:39)
[2019-11-29] MEDS: Metoclopramide 5 MG Tab PO SCH ×4 (10:26→21:16)
[2019-11-29] MEDS: Clopidogrel 75 MG Tab PO SCH (10:26)
[2019-11-29] MEDS: DULoxetine 30 MG Cap PO SCH (10:27)
[2019-11-29] MEDS: atorvaSTATin 10 MG Tab PO SCH (10:27)
[2019-11-29] MEDS: Aspirin 81 MG Tab.Chew PO SCH (10:30)
[2019-11-29] MEDS: Amiodarone 200 MG Tab PO SCH ×2 (10:30→21:16)
--- NOTE | 2019-11-29 11:25 | PCM.PN ---
- General Info Date of Service: 11/29/19 Admission Dx/Problem (Free Text): Admission Diagnosis/Problem Admission Diagnosis/Problem Nausea and vomiting Subjective Update: Feeling improved today, reports abdominal pain with eating and some nausea. BS better controlled. No chest pain. NO palpitations Functional Status: Reports: Pain Controlled, Ambulating, Urinating. Denies: Tolerating Diet - Review of Systems General: Reports: Malaise. Denies: Fatigue Pulmonary: Reports: No Symptoms. Denies: Shortness of Breath Cardiovascular: Reports: No Symptoms. Denies: Chest Pain Gastrointestinal: Reports: Abdominal Pain, Nausea. Denies: Vomiting Genitourinary: Reports: No Symptoms. Denies: Dysuria, Frequency, Burning Musculoskeletal: Reports: No Symptoms Skin: Reports: No Symptoms Neurological: Reports: No Symptoms Psychiatric: Reports: No Symptoms - Patient Data Vitals - Most Recent: Last Vital Signs Temp 98.6 F 11/29/19 04:00 Pulse 74 11/29/19 10:21 Resp 16 11/29/19 09:00 BP 113/61 11/29/19 10:21 Pulse Ox 93 L 11/29/19 09:00 Weight - Most Recent: 82.645 kg I&O - Last 24 Hours: Intake & Output 11/28/19 11/29/19 11/29/19 22:59 06:59 14:59 Intake Total 620 1910 Output Total 500 1580 375 Balance 120 330 -375 Lab Results Last 24 Hours: Laboratory Results - last 24 hr 11/28/19 11/28/19 11/28/19 Range/Units 12:08 13:01 14:00 WBC (4.0-11.0) K/uL RBC (4.50-5.90) M/uL Hgb (13.0-17.0) g/dL Hct (38.0-50.0) % MCV (80.0-98.0) fL MCH (27.0-32.0) pg MCHC (31.0-37.0) g/dL RDW Std Deviation (28.0-62.0) fl RDW Coeff of Charles (11.0-15.0) % Plt Count (150-400) K/uL MPV (7.40-12.00) fL Neut % (Auto) (48.0-80.0) % Lymph % (Auto) (16.0-40.0) % [place] % (Auto) (0.0-15.0) % Eos % (Auto) (0.0-7.0) % Baso % (Auto) (0.0-1.5) % Neut # (Auto) (1.4-5.7) K/uL Lymph # (Auto) (0.6-2.4) K/uL [place] # (Auto) (0.0-0.8) K/uL Eos # (Auto) (0.0-0.7) K/uL Baso # (Auto) (0.0-0.1) K/uL Nucleated RBC % /100WBC Nucleated RBCs # K/uL Sodium 142 (136-148) mmol/L Potassium 3.9 (3.5-5.1) mmol/L Chloride 107 (98-107) mmol/L Carbon Dioxide 23.7 (21.0-32.0) mmol/L BUN 20 H (7.0-18.0) mg/dL Creatinine 1.7 H (0.8-1.3) mg/dL Est Cr Clr Drug Dosing 57.75 mL/min Estimated GFR (MDRD) 42.2 ml/min Glucose 127 H (74-106) mg/dL POC Glucose 200 H 137 H (60-110) mg/dL Calcium 8.4 L (8.5-10.1) mg/dL Phosphorus (2.6-4.7) mg/dL Magnesium (1.8-2.4) mg/dL 11/28/19 11/28/19 11/28/19 Range/Units 14:09 15:02 16:14 WBC (4.0-11.0) K/uL RBC (4.50-5.90) M/uL Hgb (13.0-17.0) g/dL Hct (38.0-50.0) % MCV (80.0-98.0) fL MCH (27.0-32.0) pg MCHC (31.0-37.0) g/dL RDW Std Deviation (28.0-62.0) fl RDW Coeff of Charles (11.0-15.0) % Plt Count (150-400) K/uL MPV (7.40-12.00) fL Neut % (Auto) (48.0-80.0) % Lymph % (Auto) (16.0-40.0) % [place] % (Auto) (0.0-15.0) % Eos % (Auto) (0.0-7.0) % Baso % (Auto) (0.0-1.5) % Neut # (Auto) (1.4-5.7) K/uL Lymph # (Auto) (0.6-2.4) K/uL [place] # (Auto) (0.0-0.8) K/uL Eos # (Auto) (0.0-0.7) K/uL Baso # (Auto) (0.0-0.1) K/uL Nucleated RBC % /100WBC Nucleated RBCs # K/uL Sodium (136-148) mmol/L Potassium (3.5-5.1) mmol/L Chloride (98-107) mmol/L Carbon Dioxide (21.0-32.0) mmol/L BUN (7.0-18.0) mg/dL Creatinine (0.8-1.3) mg/dL Est Cr Clr Drug Dosing mL/min Estimated GFR (MDRD) ml/min Glucose (74-106) mg/dL POC Glucose 115 H 115 H 163 H (60-110) mg/dL Calcium (8.5-10.1) mg/dL Phosphorus (2.6-4.7) mg/dL Magnesium (1.8-2.4) mg/dL 11/28/19 11/28/19 11/28/19 Range/Units 17:07 20:07 20:58 WBC (4.0-11.0) K/uL RBC (4.50-5.90) M/uL Hgb (13.0-17.0) g/dL Hct (38.0-50.0) % MCV (80.0-98.0) fL MCH (27.0-32.0) pg MCHC (31.0-37.0) g/dL RDW Std Deviation (28.0-62.0) fl RDW Coeff of Charles (11.0-15.0) % Plt Count (150-400) K/uL MPV (7.40-12.00) fL Neut % (Auto) (48.0-80.0) % Lymph % (Auto) (16.0-40.0) % [place] % (Auto) (0.0-15.0) % Eos % (Auto) (0.0-7.0) % Baso % (Auto) (0.0-1.5) % Neut # (Auto) (1.4-5.7) K/uL Lymph # (Auto) (0.6-2.4) K/uL [place] # (Auto) (0.0-0.8) K/uL Eos # (Auto) (0.0-0.7) K/uL Baso # (Auto) (0.0-0.1) K/uL Nucleated RBC % /100WBC Nucleated RBCs # K/uL Sodium 137 (136-148) mmol/L Potassium 4.1 (3.5-5.1) mmol/L Chloride 104 (98-107) mmol/L Carbon Dioxide 21.1 (21.0-32.0) mmol/L BUN 19 H (7.0-18.0) mg/dL Creatinine 1.7 H (0.8-1.3) mg/dL Est Cr Clr Drug Dosing 57.75 mL/min Estimated GFR (MDRD) 42.2 ml/min Glucose 415 H (74-106) mg/dL POC Glucose 218 H 361 H (60-110) mg/dL Calcium 7.8 L (8.5-10.1) mg/dL Phosphorus (2.6-4.7) mg/dL Magnesium (1.8-2.4) mg/dL 11/28/19 11/29/19 11/29/19 Range/Units 22:41 00:07 01:27 WBC (4.0-11.0) K/uL RBC (4.50-5.90) M/uL Hgb (13.0-17.0) g/dL Hct (38.0-50.0) % MCV (80.0-98.0) fL MCH (27.0-32.0) pg MCHC (31.0-37.0) g/dL RDW Std Deviation (28.0-62.0) fl RDW Coeff of Charles (11.0-15.0) % Plt Count (150-400) K/uL MPV (7.40-12.00) fL Neut % (Auto) (48.0-80.0) % Lymph % (Auto) (16.0-40.0) % [place] % (Auto) (0.0-15.0) % Eos % (Auto) (0.0-7.0) % Baso % (Auto) (0.0-1.5) % Neut # (Auto) (1.4-5.7) K/uL Lymph # (Auto) (0.6-2.4) K/uL [place] # (Auto) (0.0-0.8) K/uL Eos # (Auto) (0.0-0.7) K/uL Baso # (Auto) (0.0-0.1) K/uL Nucleated RBC % /100WBC Nucleated RBCs # K/uL Sodium (136-148) mmol/L Potassium (3.5-5.1) mmol/L Chloride (98-107) mmol/L Carbon Dioxide (21.0-32.0) mmol/L BUN (7.0-18.0) mg/dL Creatinine (0.8-1.3) mg/dL Est Cr Clr Drug Dosing mL/min Estimated GFR (MDRD) ml/min Glucose (74-106) mg/dL POC Glucose 396 H 373 H 370 H (60-110) mg/dL Calcium (8.5-10.1) mg/dL Phosphorus (2.6-4.7) mg/dL Magnesium (1.8-2.4) mg/dL 11/29/19 11/29/19 11/29/19 Range/Units 05:10 05:10 05:36 WBC 7.61 (4.0-11.0) K/uL RBC 3.74 L (4.50-5.90) M/uL Hgb 12.1 L (13.0-17.0) g/dL Hct 35.0 L (38.0-50.0) % MCV 93.6 (80.0-98.0) fL MCH 32.4 H (27.0-32.0) pg MCHC 34.6 (31.0-37.0) g/dL RDW Std Deviation 43.2 (28.0-62.0) fl RDW Coeff of Charles 13 (11.0-15.0) % Plt Count 193 (150-400) K/uL MPV 9.60 (7.40-12.00) fL Neut % (Auto) 62.2 (48.0-80.0) % Lymph % (Auto) 26.3 (16.0-40.0) % [place] % (Auto) 10.1 (0.0-15.0) % Eos % (Auto) 0.7 (0.0-7.0) % Baso % (Auto) 0.7 (0.0-1.5) % Neut # (Auto) 4.7 (1.4-5.7) K/uL Lymph # (Auto) 2.0 (0.6-2.4) K/uL [place] # (Auto) 0.8 (0.0-0.8) K/uL Eos # (Auto) 0.1 (0.0-0.7) K/uL Baso # (Auto) 0.1 (0.0-0.1) K/uL Nucleated RBC % 0.0 /100WBC Nucleated RBCs # 0 K/uL Sodium 143 (136-148) mmol/L Potassium 3.0 L (3.5-5.1) mmol/L Chloride 108 H (98-107) mmol/L Carbon Dioxide 27.9 (21.0-32.0) mmol/L BUN 17 (7.0-18.0) mg/dL Creatinine 1.6 H (0.8-1.3) mg/dL Est Cr Clr Drug Dosing 61.36 mL/min Estimated GFR (MDRD) 45.3 ml/min Glucose 88 (74-106) mg/dL POC Glucose 79 (60-110) mg/dL Calcium 8.4 L (8.5-10.1) mg/dL Phosphorus 2.4 L (2.6-4.7) mg/dL Magnesium 1.8 (1.8-2.4) mg/dL 11/29/19 11/29/19 Range/Units 06:48 08:22 WBC (4.0-11.0) K/uL RBC (4.50-5.90) M/uL Hgb (13.0-17.0) g/dL Hct (38.0-50.0) % MCV (80.0-98.0) fL MCH (27.0-32.0) pg MCHC (31.0-37.0) g/dL RDW Std Deviation (28.0-62.0) fl RDW Coeff of Charles (11.0-15.0) % Plt Count (150-400) K/uL MPV (7.40-12.00) fL Neut % (Auto) (48.0-80.0) % Lymph % (Auto) (16.0-40.0) % [place] % (Auto) (0.0-15.0) % Eos % (Auto) (0.0-7.0) % Baso % (Auto) (0.0-1.5) % Neut # (Auto) (1.4-5.7) K/uL Lymph # (Auto) (0.6-2.4) K/uL [place] # (Auto) (0.0-0.8) K/uL Eos # (Auto) (0.0-0.7) K/uL Baso # (Auto) (0.0-0.1) K/uL Nucleated RBC % /100WBC Nucleated RBCs # K/uL Sodium (136-148) mmol/L Potassium (3.5-5.1) mmol/L Chloride (98-107) mmol/L Carbon Dioxide (21.0-32.0) mmol/L BUN (7.0-18.0) mg/dL Creatinine (0.8-1.3) mg/dL Est Cr Clr Drug Dosing mL/min Estimated GFR (MDRD) ml/min Glucose (74-106) mg/dL POC Glucose 134 H 144 H (60-110) mg/dL Calcium (8.5-10.1) mg/dL Phosphorus (2.6-4.7) mg/dL Magnesium (1.8-2.4) mg/dL Shin Results Last 24 Hours: Microbiology 11/27/19 20:10 Aerobic Blood Culture - Preliminary Blood - Venous - Lab Draw NO GROWTH AFTER 1 DAY Anaerobic Blood Culture - Preliminary NO GROWTH AFTER 1 DAY 11/27/19 20:00 Aerobic Blood Culture - Preliminary Blood - Venous NO GROWTH AFTER 1 DAY Anaerobic Blood Culture - Preliminary NO GROWTH AFTER 1 DAY Med Orders - Current: Current Medications Albuterol/Ipratropium (Duoneb 3.0-0.5 Mg/3 Ml) 3 ml NEB Q4HRRT PRN PRN Reason: Shortness Of Breath/wheezing Amiodarone HCl (Cordarone) 200 mg PO BID [facility] Last Admin: 11/29/19 10:30 Dose: 200 mg Documented by: Aspirin (Aspirin) 81 mg PO DAILY [facility] Last Admin: 11/29/19 10:30 Dose: 81 mg Documented by: Atorvastatin Calcium (Lipitor) 10 mg PO DAILY [facility] Last Admin: 11/29/19 10:27 Dose: 10 mg Documented by: Clopidogrel Bisulfate (Plavix) 75 mg PO DAILY [facility] Last Admin: 11/29/19 10:26 Dose: 75 mg Documented by: Dextrose/Water (Dextrose 50% In Water) 25 ml IVPUSH ASDIRECTED PRN PRN Reason: Hypoglycemia Last Admin: 11/29/19 05:39 Dose: 25 ml Documented by: Duloxetine HCl (Cymbalta) 30 mg PO DAILY [facility] Last Admin: 11/29/19 10:27 Dose: 30 mg Documented by: Sodium Chloride (Normal Saline) 500 mls @ 999 mls/hr IV .BOLUS [facility] Last Admin: 11/28/19 23:29 Dose: 999 mls/hr Documented by: Sodium Chloride (Normal Saline) 500 mls @ 999 mls/hr IV .BOLUS [facility] Last Admin: 11/27/19 17:01 Dose: 999 mls/hr Documented by: Pantoprazole Sodium 40 mg/ (Sodium Chloride) 10 mls @ 300 mls/hr IV Q12H [facility] Last Admin: 11/29/19 10:16 Dose: 300 mls/hr Documented by: Sodium Chloride (Normal Saline) 500 mls @ 999 mls/hr IV .BOLUS [facility] Potassium Chloride/Sodium Chloride (Normal Saline With 40 Meq Kcl) 1,000 mls @ 125 mls/hr IV Q8H [facility] Stop: 11/29/19 17:29 Last Admin: 11/29/19 10:15 Dose: 125 mls/hr Documented by: Insulin Aspart (Novolog) 0 unit SUBCUT TIDAC [facility]; Protocol Last Admin: 11/29/19 08:34 Dose: Not Given Documented by: Insulin Aspart (Novolog) 5 unit SUBCUT TID [facility] Last Admin: 11/29/19 06:41 Dose: Not Given Documented by: Insulin Detemir (Levemir) 10 unit SUBCUT BEDTIME [facility] Last Admin: 11/28/19 20:42 Dose: 10 unit Documented by: Isosorbide Mononitrate (Imdur) 30 mg PO DAILY [facility] Last Admin: 11/29/19 09:08 Dose: Not Given Documented by: Metoclopramide HCl (Reglan) 5 mg PO QIDACANDBED [facility] Last Admin: 11/29/19 10:31 Dose: 5 mg Documented by: Metoprolol Tartrate (Lopressor) 25 mg PO BID [facility] Last Admin: 11/29/19 10:21 Dose: 25 mg Documented by: Ranolazine (Ranexa) 500 mg PO BID [facility] Last Admin: 11/29/19 09:11 Dose: Not Given Documented by: Sodium Chloride (Saline Flush) 10 ml FLUSH ASDIRECTED PRN PRN Reason: Keep Vein Open Last Admin: 11/27/19 15:35 Dose: 10 ml Documented by: Sodium Chloride (Saline Flush) 2.5 ml FLUSH ASDIRECTED PRN PRN Reason: Keep Vein Open Last Admin: 11/27/19 15:35 Dose: 2.5 ml Documented by: Sodium Chloride (Saline Flush) 2.5 ml FLUSH ASDIRECTED PRN PRN Reason: Keep Vein Open Last Admin: 11/27/19 15:35 Dose: 2.5 ml Documented by: Sucralfate (Carafate) 1 gm PO QID [facility] Last Admin: 11/29/19 05:30 Dose: 1 gm Documented by: Topiramate (Topamax) 25 mg PO BID [facility] Last Admin: 11/29/19 09:11 Dose: Not Given Documented by: Discontinued Medications Amiodarone HCl (Cordarone) 200 mg PO ONETIME ONE Stop: 11/28/19 02:52 Last Admin: 11/28/19 03:00 Dose: 200 mg Documented by: Diphenhydramine HCl (Benadryl) 25 mg IVPUSH ONETIME ONE Stop: 11/27/19 15:27 Last Admin: 11/27/19 15:32 Dose: 25 mg Documented by: Famotidine (Pepcid) 20 mg IVPUSH ONETIME ONE Stop: 11/27/19 18:48 Last Admin: 11/27/19 18:54 Dose: 20 mg Documented by: Famotidine (Pepcid) Confirm Administered Dose 20 mg .ROUTE .STK-MED ONE Stop: 11/27/19 18:50 Last Admin: 11/27/19 19:01 Dose: Not Given Documented by: Lactated Ringer's (Ringers, Lactated) 1,000 mls @ 125 mls/hr IV ASDIRECTED [facility] Last Admin: 11/28/19 06:43 Dose: 125 mls/hr Documented by: Pantoprazole Sodium 40 mg/ (Sodium Chloride) 10 mls @ 300 mls/hr IV Q24H [facility] Piperacillin Sod/Tazobactam (Sod 3.375 gm/ Sodium Chloride) 50 mls @ 100 mls/hr IV Q8H [facility] Last Admin: 11/29/19 03:56 Dose: 100 mls/hr Documented by: Lactated Ringer's (Ringers, Lactated) 500 mls @ 999 mls/hr IV .BOLUS ONE Stop: 11/27/19 21:04 Last Admin: 11/27/19 21:10 Dose: 999 mls/hr Documented by: Sodium Chloride (Normal Saline) 1,000 mls @ 999 mls/hr IV .Bolus ONE Stop: 11/28/19 09:21 Last Admin: 11/28/19 10:05 Dose: Not Given Documented by: Lactated Ringer's (Ringers, Lactated) 1,000 mls @ 999 mls/hr IV .BOLUS ONE Stop: 11/28/19 09:32 Last Admin: 11/28/19 08:40 Dose: 999 mls/hr Documented by: Insulin Human Regular 100 unit (/ Sodium Chloride) 100 mls @ 6 mls/hr IV TITRATE [facility]; Protocol Last Titration: 11/28/19 15:04 Dose: 0 units/hr, 0 mls/hr Documented by: Lactated Ringer's (Ringers, Lactated) 1,000 mls @ 999 mls/hr IV .BOLUS ONE Stop: 11/28/19 10:36 Last Admin: 11/28/19 09:57 Dose: 999 mls/hr Documented by: Dextrose/Sodium Chloride (Dextrose 5%-1/2 Ns) 1,000 mls @ 150 mls/hr IV ASDIRECTED [facility] Last Admin: 11/28/19 14:29 Dose: 150 mls/hr Documented by: Insulin Aspart (Novolog) 15 unit SUBCUT ONETIME ONE Stop: 11/28/19 23:25 Last Admin: 11/28/19 23:39 Dose: Not Given Documented by: Insulin Aspart (Novolog) 15 unit SUBCUT ONETIME ONE Stop: 11/28/19 23:29 Last Admin: 11/28/19 23:30 Dose: 15 unit Documented by: Insulin Aspart (Novolog) 10 unit SUBCUT ONETIME ONE Stop: 11/29/19 00:20 Last Admin: 11/29/19 00:24 Dose: 10 unit Documented by: Insulin Detemir (Levemir) 5 unit SUBCUT BEDTIME ONE Stop: 11/27/19 23:31 Last Admin: 11/27/19 23:58 Dose: 5 units Documented by: Lorazepam (Ativan) 1 mg IVPUSH ONETIME ONE Stop: 11/28/19 01:03 Last Admin: 11/28/19 01:34 Dose: 1 mg Documented by: Metoclopramide HCl (Reglan) 10 mg IVPUSH ONETIME ONE Stop: 11/27/19 15:26 Last Admin: 11/27/19 15:30 Dose: 10 mg Documented by: Metoprolol Tartrate (Lopressor) 50 mg PO BID [facility] Last Admin: 11/29/19 09:10 Dose: Not Given Documented by: Metoprolol Tartrate (Lopressor) 5 mg IVPUSH ONETIME ONE Stop: 11/28/19 02:28 Last Admin: 11/28/19 02:38 Dose: 5 mg Documented by: Metoprolol Tartrate (Lopressor) 50 mg PO ONETIME ONE Stop: 11/28/19 02:30 Last Admin: 11/28/19 02:40 Dose: 50 mg Documented by: Morphine Sulfate (Morphine) 1 mg IVPUSH Q2H PRN PRN Reason: Pain (severe 7-10) Stop: 11/28/19 19:30 Last Admin: 11/27/19 22:27 Dose: 1 mg Documented by: Morphine Sulfate (Morphine) 2 mg IVPUSH Q2H PRN PRN Reason: Pain (severe 7-10) Stop: 11/28/19 19:30 Last Admin: 11/28/19 08:45 Dose: 2 mg Documented by: Ondansetron HCl (Zofran) 4 mg IVPUSH ONETIME ONE Stop: 09/19/20 16:55 Last Admin: 11/27/19 17:02 Dose: 4 mg Documented by: Ondansetron HCl (Zofran) 4 mg IVPUSH Q4H PRN PRN Reason: Nausea/Vomiting Last Admin: 11/28/19 00:23 Dose: 4 mg Documented by: Prochlorperazine Edisylate (Compazine) 5 mg IVPUSH ONETIME ONE Stop: 11/27/19 18:48 Last Admin: 11/27/19 18:52 Dose: 5 mg Documented by: Prochlorperazine Edisylate (Compazine) Confirm Administered Dose 10 mg .ROUTE .STK-MED ONE Stop: 11/27/19 18:50 Last Admin: 11/27/19 18:55 Dose: Not Given Documented by: Sodium Bicarbonate (Sodium Bicarbonate 8.4%) 50 meq IVPUSH ONETIME ONE Stop: 11/29/19 00:14 Last Admin: 11/29/19 00:28 Dose: 50 meq Documented by: - Exam General: Alert, Oriented, Cooperative, No Acute Distress Lungs: Clear to Auscultation, Normal Respiratory Effort Cardiovascular: Regular Rate, Regular Rhythm GI/Abdominal Exam: Normal Bowel Sounds, Soft, Non-Tender Extremities: Normal Inspection, Normal Range of Motion, Non-Tender, No Pedal Edema Neurological: No New Focal Deficit Psy/Mental Status: Alert, Normal Affect, Normal Mood Sepsis Event Note - Evaluation Sepsis Screening Result: No Definite Risk - Focused Exam Vital Signs: Vital Signs Temp Pulse Resp BP BP BP Pulse Ox 11/29/19 10:21 74 113/61 11/29/19 09:10 71 102/56 L 11/29/19 09:08 102/56 L 11/29/19 09:00 16 102/56 L 93 L 11/29/19 08:00 12 99/54 L 95 11/29/19 07:00 20 97/52 L 92 L 11/29/19 06:00 18 101/50 L 95 11/29/19 05:00 18 104/53 L 94 L 11/29/19 04:00 98.6 F 19 103/54 L 93 L 11/29/19 03:00 13 110/60 92 L 11/29/19 02:00 16 107/58 L 93 L 11/29/19 01:00 16 114/68 93 L 11/29/19 00:00 98.4 F 17 115/59 L 94 L - Problem List & Annotations (1) LATOYA (acute kidney injury) SNOMED Code(s): 64942420, 01621283 Code(s): N17.9 - ACUTE KIDNEY FAILURE, UNSPECIFIED Status: Acute Current Visit: Yes (2) Nausea & vomiting SNOMED Code(s): 36059390 Code(s): R11.2 - NAUSEA WITH VOMITING, UNSPECIFIED Status: Acute Current Visit: Yes (3) Gastroparesis SNOMED Code(s): 358240087 Code(s): K31.84 - GASTROPARESIS Status: Acute Current Visit: No (4) CAD (coronary artery disease) SNOMED Code(s): 72567916 Code(s): I25.10 - ATHSCL HEART DISEASE OF [place] CORONARY ARTERY W/O ANG PCTRS Status: Chronic Current Visit: No (5) Cardiomyopathy SNOMED Code(s): 79476821 Code(s): I42.9 - CARDIOMYOPATHY, UNSPECIFIED Status: Chronic Current Visit: No (6) DM type 1 (diabetes mellitus, type 1) SNOMED Code(s): 82011785 Code(s): E10.9 - TYPE 1 DIABETES MELLITUS WITHOUT COMPLICATIONS Status: Chronic Current Visit: No Qualifiers: Diabetes mellitus complication status: with hyperglycemia Qualified Code(s): E10.65 - Type 1 diabetes mellitus with hyperglycemia (7) History of coronary artery disease SNOMED Code(s): 084742681 Code(s): Z86.79 - PERSONAL HISTORY OF OTHER DISEASES OF THE CIRCULATORY SYSTEM Status: Chronic Current Visit: No (8) Hx of cardiac pacemaker SNOMED Code(s): 122245417 Code(s): Z95.0 - PRESENCE OF CARDIAC PACEMAKER Status: Chronic Current Visit: No (9) Hx of non-ST elevation myocardial infarction (NSTEMI) SNOMED Code(s): 736706262 Code(s): I25.2 - OLD MYOCARDIAL INFARCTION Status: Chronic Current Visit: No (10) ICD (implantable cardioverter-defibrillator) malfunction SNOMED Code(s): 51871914955307784 Code(s): T82.118A - BREAKDOWN (MECHANICAL) OF CARDIAC ELECTRONIC DEVICE, INIT Status: Chronic Current Visit: No (11) Intracranial hypertension SNOMED Code(s): 266606879 Code(s): G93.2 - BENIGN INTRACRANIAL HYPERTENSION Status: Chronic Current Visit: No (12) Postural hypotension SNOMED Code(s): 97635634 Code(s): I95.1 - ORTHOSTATIC HYPOTENSION Status: Chronic Current Visit: No - Problem List Review Problem List Initiated/Reviewed/Updated: Yes - My Orders Last 24 Hours: My Active Orders 11/29/19 Breakfast Soft Diet [DIET] 11/29/19 09:30 Metoprolol Tartrate [Lopressor] 25 mg PO BID Sodium Chloride 0.9% with KCl [Normal Saline with 40 mEq KCl] 1,000 ml IV Q8H 11/29/19 09:34 Transfer Patient (Change bed) [ADT] Routine Telemetry Monitoring [Cardiac Monitoring] [RC] . DIRECTED 11/29/19 09:35 PT Evaluation and Treatment [CONS] Routine 11/29/19 09:38 Remove Echavarria Catheter [Urinary Catheter Removal] [RC] PER UNIT ROUTINE 11/29/19 11:30 Metoclopramide [Reglan] 5 mg PO QIDACANDBED - Plan Plan:: This 53 year old male admitted with LATOYA, DKA, N/V 1. DKA resolved. DM Type 1 - Continue Novlog SSI with meals and Lantus at bedtime - Encouraged to eat - LATOYA resolved with IVF hydration and resolution of DKA 2. Gastroparesis - Poor appetite at home due to this. - hasn't seen GI specialist, will send referral - Will add Reglan 5 mg with meals and monitor response - Protonix q12hr IV and Carafate with meals. 3. Urinary retention: - remove echavarria today and monitor. 4. Cardiomyopathy, CHF,CAD,HTN - Continue Home medications including Plavix and ASA - KCL 40 meq via IVF today, monitor in am. Give PO this evening VTE prophylaxis: SCDs Dispo: 1-2 days, transfer to Med/surg on telemetry
[2019-11-29] MEDS ORDERED: Insulin Aspart 100 Units/ML 3 ML Pen SUBCUT STA (15:13)
[2019-11-29] MEDS ORDERED: Potassium Chloride 10 MEQ Tab.ER PO ONE (17:00)
[2019-11-29] MEDS: Phosphorus #1 250 MG Tab PO SCH ×2 (17:14→23:39)
[2019-11-29] MEDS: Tamsulosin 0.4 MG Cap.ER PO SCH (21:14)
[2019-11-29] MEDS: Insulin Detemir 100 Units/ML 3 ML Pen SUBCUT SCH (21:17)
[2019-11-30] MEDS: Sucralfate 1 GM Tab PO SCH ×5 (05:09→23:53)
[2019-11-30] MEDS: Phosphorus #1 250 MG Tab PO SCH ×5 (05:09→23:53)
[2019-11-30 06:11] LABS: BLOOD UREA NITROGEN,BUN 11 mg/dL (7.0-18.0); CARBON DIOXIDE,CO2 27.7 mmol/L (21.0-32.0); CHLORIDE,CL 106 mmol/L (98-107); GLUCOSE RANDOM 108 mg/dL (74-106); POTASSIUM,K 3.1 mmol/L (3.5-5.1); SODIUM,NA 145 mmol/L (136-148)
[2019-11-30] MEDS: Metoclopramide 5 MG Tab PO SCH ×3 (07:52→18:57)
[2019-11-30] MEDS ORDERED: Morphine 4 MG/ML Syringe IVPUSH ONE (08:02)
[2019-11-30] MEDS ORDERED: Alum Hydrox/Mag Hydrox/Simeth 15 ML, Lidocaine 2% 5 ML PO ONE ×4 (08:05→09:15)
[2019-11-30] MEDS ORDERED: Potassium Chloride 40 MEQ, Magnesium Sulfate 2 GM in Sodium Chloride 0.9% 500 ML IV ONE ×2 (08:05→08:15)
--- NOTE | 2019-11-30 08:07 | PCM.PN ---
- General Info Date of Service: 11/30/19 Admission Dx/Problem (Free Text): Admission Diagnosis/Problem Admission Diagnosis/Problem Nausea and vomiting Subjective Update: Having significant R groin pain this morning. Hurts worse when straigthening leg. He reports he was up to the bathroom and sat back on the bed, bent over to put SCDs on and got this pain. he denies chest pain or SOB. No fevers or chills. Functional Status: Reports: Pain Controlled, Tolerating Diet, Ambulating, Urinating - Review of Systems General: Reports: No Symptoms. Denies: Fatigue, Malaise Pulmonary: Reports: No Symptoms. Denies: Shortness of Breath Cardiovascular: Reports: No Symptoms. Denies: Chest Pain Gastrointestinal: Reports: Other (R groin pain). Denies: Abdominal Pain, Nausea, Vomiting Musculoskeletal: Reports: No Symptoms Skin: Reports: No Symptoms Neurological: Reports: No Symptoms Psychiatric: Reports: No Symptoms - Patient Data Vitals - Most Recent: Last Vital Signs Temp 97.5 F 11/30/19 04:00 Pulse 78 11/30/19 04:00 Resp 16 11/30/19 04:00 BP 119/70 11/30/19 04:00 Pulse Ox 93 L 11/30/19 04:00 Weight - Most Recent: 82.645 kg I&O - Last 24 Hours: Intake & Output 11/29/19 11/30/19 11/30/19 22:59 06:59 14:59 Intake Total 1140 1100 Output Total 900 1970 Balance 240 -870 Lab Results Last 24 Hours: Laboratory Results - last 24 hr 11/29/19 11/29/19 11/29/19 Range/Units 08:22 13:04 14:57 WBC (4.0-11.0) K/uL RBC (4.50-5.90) M/uL Hgb (13.0-17.0) g/dL Hct (38.0-50.0) % MCV (80.0-98.0) fL MCH (27.0-32.0) pg MCHC (31.0-37.0) g/dL RDW Std Deviation (28.0-62.0) fl RDW Coeff of Charles (11.0-15.0) % Plt Count (150-400) K/uL MPV (7.40-12.00) fL Neut % (Auto) (48.0-80.0) % Lymph % (Auto) (16.0-40.0) % [place] % (Auto) (0.0-15.0) % Eos % (Auto) (0.0-7.0) % Baso % (Auto) (0.0-1.5) % Neut # (Auto) (1.4-5.7) K/uL Lymph # (Auto) (0.6-2.4) K/uL [place] # (Auto) (0.0-0.8) K/uL Eos # (Auto) (0.0-0.7) K/uL Baso # (Auto) (0.0-0.1) K/uL Nucleated RBC % /100WBC Nucleated RBCs # K/uL Sodium (136-148) mmol/L Potassium (3.5-5.1) mmol/L Chloride (98-107) mmol/L Carbon Dioxide (21.0-32.0) mmol/L BUN (7.0-18.0) mg/dL Creatinine (0.8-1.3) mg/dL Est Cr Clr Drug Dosing mL/min Estimated GFR (MDRD) ml/min Glucose (74-106) mg/dL POC Glucose 144 H 291 H 355 H (60-110) mg/dL Calcium (8.5-10.1) mg/dL Magnesium (1.8-2.4) mg/dL 11/29/19 11/29/19 11/30/19 Range/Units 17:52 21:32 04:30 WBC 3.26 L (4.0-11.0) K/uL RBC 3.89 L (4.50-5.90) M/uL Hgb 12.7 L (13.0-17.0) g/dL Hct 36.1 L (38.0-50.0) % MCV 92.8 (80.0-98.0) fL MCH 32.6 H (27.0-32.0) pg MCHC 35.2 (31.0-37.0) g/dL RDW Std Deviation 41.8 (28.0-62.0) fl RDW Coeff of Charles 12 (11.0-15.0) % Plt Count 162 (150-400) K/uL MPV 9.70 (7.40-12.00) fL Neut % (Auto) 48.3 (48.0-80.0) % Lymph % (Auto) 42.6 H (16.0-40.0) % Briscoe % (Auto) 6.4 (0.0-15.0) % Eos % (Auto) 1.8 (0.0-7.0) % Baso % (Auto) 0.9 (0.0-1.5) % Neut # (Auto) 1.6 (1.4-5.7) K/uL Lymph # (Auto) 1.4 (0.6-2.4) K/uL Briscoe # (Auto) 0.2 (0.0-0.8) K/uL Eos # (Auto) 0.1 (0.0-0.7) K/uL Baso # (Auto) 0.0 (0.0-0.1) K/uL Nucleated RBC % 0.0 /100WBC Nucleated RBCs # 0 K/uL Sodium (136-148) mmol/L Potassium (3.5-5.1) mmol/L Chloride (98-107) mmol/L Carbon Dioxide (21.0-32.0) mmol/L BUN (7.0-18.0) mg/dL Creatinine (0.8-1.3) mg/dL Est Cr Clr Drug Dosing mL/min Estimated GFR (MDRD) ml/min Glucose (74-106) mg/dL POC Glucose 194 H 111 H (60-110) mg/dL Calcium (8.5-10.1) mg/dL Magnesium (1.8-2.4) mg/dL 11/30/19 11/30/19 Range/Units 04:30 07:53 WBC (4.0-11.0) K/uL RBC (4.50-5.90) M/uL Hgb (13.0-17.0) g/dL Hct (38.0-50.0) % MCV (80.0-98.0) fL MCH (27.0-32.0) pg MCHC (31.0-37.0) g/dL RDW Std Deviation (28.0-62.0) fl RDW Coeff of Charles (11.0-15.0) % Plt Count (150-400) K/uL MPV (7.40-12.00) fL Neut % (Auto) (48.0-80.0) % Lymph % (Auto) (16.0-40.0) % [place] % (Auto) (0.0-15.0) % Eos % (Auto) (0.0-7.0) % Baso % (Auto) (0.0-1.5) % Neut # (Auto) (1.4-5.7) K/uL Lymph # (Auto) (0.6-2.4) K/uL Briscoe # (Auto) (0.0-0.8) K/uL Eos # (Auto) (0.0-0.7) K/uL Baso # (Auto) (0.0-0.1) K/uL Nucleated RBC % /100WBC Nucleated RBCs # K/uL Sodium 145 (136-148) mmol/L Potassium 3.1 L (3.5-5.1) mmol/L Chloride 106 (98-107) mmol/L Carbon Dioxide 27.7 (21.0-32.0) mmol/L BUN 11 (7.0-18.0) mg/dL Creatinine 1.1 (0.8-1.3) mg/dL Est Cr Clr Drug Dosing 89.26 mL/min Estimated GFR (MDRD) > 60.0 ml/min Glucose 108 H (74-106) mg/dL POC Glucose 168 H (60-110) mg/dL Calcium 8.3 L (8.5-10.1) mg/dL Magnesium 1.7 L (1.8-2.4) mg/dL Shin Results Last 24 Hours: Microbiology 11/27/19 20:10 Aerobic Blood Culture - Preliminary Blood - Venous - Lab Draw NO GROWTH AFTER 2 DAYS Anaerobic Blood Culture - Preliminary NO GROWTH AFTER 2 DAYS 11/27/19 20:00 Aerobic Blood Culture - Preliminary Blood - Venous NO GROWTH AFTER 2 DAYS Anaerobic Blood Culture - Preliminary NO GROWTH AFTER 2 DAYS Med Orders - Current: Current Medications Albuterol/Ipratropium (Duoneb 3.0-0.5 Mg/3 Ml) 3 ml NEB Q4HRRT PRN PRN Reason: Shortness Of Breath/wheezing Amiodarone HCl (Cordarone) 200 mg PO BID [facility] Last Admin: 11/29/19 21:16 Dose: 200 mg Documented by: Aspirin (Aspirin) 81 mg PO DAILY [facility] Last Admin: 11/29/19 10:30 Dose: 81 mg Documented by: Atorvastatin Calcium (Lipitor) 10 mg PO DAILY [facility] Last Admin: 11/29/19 10:27 Dose: 10 mg Documented by: Clopidogrel Bisulfate (Plavix) 75 mg PO DAILY [facility] Last Admin: 11/29/19 10:26 Dose: 75 mg Documented by: Dextrose/Water (Dextrose 50% In Water) 25 ml IVPUSH ASDIRECTED PRN PRN Reason: Hypoglycemia Last Admin: 11/29/19 05:39 Dose: 25 ml Documented by: Duloxetine HCl (Cymbalta) 30 mg PO DAILY [facility] Last Admin: 11/29/19 10:27 Dose: 30 mg Documented by: Pantoprazole Sodium 40 mg/ (Sodium Chloride) 10 mls @ 300 mls/hr IV Q12H [facility] Last Admin: 11/29/19 23:39 Dose: 300 mls/hr Documented by: Sodium Chloride (Normal Saline) 500 mls @ 999 mls/hr IV .BOLUS [facility] Potassium Chloride 40 meq/Magnesium Sulfate 2 gm/ Sodium Chloride 524 mls @ 131 mls/hr IV ONETIME ONE Stop: 11/30/19 12:04 Insulin Aspart (Novolog) 0 unit SUBCUT TIDAC [facility]; Protocol Last Admin: 11/29/19 17:58 Dose: 3 units Documented by: Insulin Aspart (Novolog) 5 unit SUBCUT TIDMEALS [facility] Last Admin: 11/29/19 17:59 Dose: 5 units Documented by: Insulin Detemir (Levemir) 10 unit SUBCUT BEDTIME [facility] Last Admin: 11/29/19 21:17 Dose: 10 unit Documented by: Isosorbide Mononitrate (Imdur) 30 mg PO DAILY [facility] Last Admin: 11/29/19 09:08 Dose: Not Given Documented by: Metoclopramide HCl (Reglan) 5 mg PO QIDACANDBED [facility] Last Admin: 11/30/19 07:52 Dose: 5 mg Documented by: Metoprolol Tartrate (Lopressor) 25 mg PO BID [facility] Last Admin: 11/29/19 21:14 Dose: 25 mg Documented by: Ranolazine (Ranexa) 500 mg PO BID [facility] Last Admin: 11/29/19 21:16 Dose: 500 mg Documented by: Sodium Chloride (Saline Flush) 10 ml FLUSH ASDIRECTED PRN PRN Reason: Keep Vein Open Last Admin: 11/27/19 15:35 Dose: 10 ml Documented by: Sodium Chloride (Saline Flush) 2.5 ml FLUSH ASDIRECTED PRN PRN Reason: Keep Vein Open Last Admin: 11/27/19 15:35 Dose: 2.5 ml Documented by: Sodium Chloride (Saline Flush) 2.5 ml FLUSH ASDIRECTED PRN PRN Reason: Keep Vein Open Last Admin: 11/27/19 15:35 Dose: 2.5 ml Documented by: Sodium Phosphate (Neutra-Phos) 250 mg PO QID [facility] Last Admin: 11/30/19 05:09 Dose: 250 mg Documented by: Sucralfate (Carafate) 1 gm PO QID [facility] Last Admin: 11/30/19 05:09 Dose: 1 gm Documented by: Tamsulosin HCl (Flomax) 0.4 mg PO BEDTIME [facility] Last Admin: 11/29/19 21:14 Dose: 0.4 mg Documented by: Topiramate (Topamax) 25 mg PO BID [facility] Last Admin: 11/29/19 21:15 Dose: 25 mg Documented by: Discontinued Medications Amiodarone HCl (Cordarone) 200 mg PO ONETIME ONE Stop: 11/28/19 02:52 Last Admin: 11/28/19 03:00 Dose: 200 mg Documented by: Diphenhydramine HCl (Benadryl) 25 mg IVPUSH ONETIME ONE Stop: 11/27/19 15:27 Last Admin: 11/27/19 15:32 Dose: 25 mg Documented by: Famotidine (Pepcid) 20 mg IVPUSH ONETIME ONE Stop: 11/27/19 18:48 Last Admin: 11/27/19 18:54 Dose: 20 mg Documented by: Famotidine (Pepcid) Confirm Administered Dose 20 mg .ROUTE .STK-MED ONE Stop: 11/27/19 18:50 Last Admin: 11/27/19 19:01 Dose: Not Given Documented by: Sodium Chloride (Normal Saline) 500 mls @ 999 mls/hr IV .BOLUS [facility] Last Admin: 11/28/19 23:29 Dose: 999 mls/hr Documented by: Sodium Chloride (Normal Saline) 500 mls @ 999 mls/hr IV .BOLUS [facility] Last Admin: 11/27/19 17:01 Dose: 999 mls/hr Documented by: Lactated Ringer's (Ringers, Lactated) 1,000 mls @ 125 mls/hr IV ASDIRECTED [facility] Last Admin: 11/28/19 06:43 Dose: 125 mls/hr Documented by: Pantoprazole Sodium 40 mg/ (Sodium Chloride) 10 mls @ 300 mls/hr IV Q24H [facility] Piperacillin Sod/Tazobactam (Sod 3.375 gm/ Sodium Chloride) 50 mls @ 100 mls/hr IV Q8H [facility] Last Admin: 11/29/19 03:56 Dose: 100 mls/hr Documented by: Lactated Ringer's (Ringers, Lactated) 500 mls @ 999 mls/hr IV .BOLUS ONE Stop: 11/27/19 21:04 Last Admin: 11/27/19 21:10 Dose: 999 mls/hr Documented by: Sodium Chloride (Normal Saline) 1,000 mls @ 999 mls/hr IV .Bolus ONE Stop: 11/28/19 09:21 Last Admin: 11/28/19 10:05 Dose: Not Given Documented by: Lactated Ringer's (Ringers, Lactated) 1,000 mls @ 999 mls/hr IV .BOLUS ONE Stop: 11/28/19 09:32 Last Admin: 11/28/19 08:40 Dose: 999 mls/hr Documented by: Insulin Human Regular 100 unit (/ Sodium Chloride) 100 mls @ 6 mls/hr IV TITRATE [facility]; Protocol Last Titration: 11/28/19 15:04 Dose: 0 units/hr, 0 mls/hr Documented by: Lactated Ringer's (Ringers, Lactated) 1,000 mls @ 999 mls/hr IV .BOLUS ONE Stop: 11/28/19 10:36 Last Admin: 11/28/19 09:57 Dose: 999 mls/hr Documented by: Dextrose/Sodium Chloride (Dextrose 5%-1/2 Ns) 1,000 mls @ 150 mls/hr IV ASDIRECTED [facility] Last Admin: 11/28/19 14:29 Dose: 150 mls/hr Documented by: Potassium Chloride/Sodium Chloride (Normal Saline With 40 Meq Kcl) 1,000 mls @ 125 mls/hr IV Q8H [facility] Stop: 11/29/19 17:29 Last Admin: 11/29/19 10:15 Dose: 125 mls/hr Documented by: Insulin Aspart (Novolog) 15 unit SUBCUT ONETIME ONE Stop: 11/28/19 23:25 Last Admin: 11/28/19 23:39 Dose: Not Given Documented by: Insulin Aspart (Novolog) 15 unit SUBCUT ONETIME ONE Stop: 11/28/19 23:29 Last Admin: 11/28/19 23:30 Dose: 15 unit Documented by: Insulin Aspart (Novolog) 10 unit SUBCUT ONETIME ONE Stop: 11/29/19 00:20 Last Admin: 11/29/19 00:24 Dose: 10 unit Documented by: Insulin Aspart (Novolog) 5 unit SUBCUT TID [facility] Last Admin: 11/29/19 15:00 Dose: 5 units Documented by: Insulin Aspart (Novolog) 8 unit SUBCUT NOW STA Stop: 11/29/19 15:14 Last Admin: 11/29/19 15:17 Dose: 8 unit Documented by: Insulin Detemir (Levemir) 5 unit SUBCUT BEDTIME ONE Stop: 11/27/19 23:31 Last Admin: 11/27/19 23:58 Dose: 5 units Documented by: Lorazepam (Ativan) 1 mg IVPUSH ONETIME ONE Stop: 11/28/19 01:03 Last Admin: 11/28/19 01:34 Dose: 1 mg Documented by: Metoclopramide HCl (Reglan) 10 mg IVPUSH ONETIME ONE Stop: 11/27/19 15:26 Last Admin: 11/27/19 15:30 Dose: 10 mg Documented by: Metoprolol Tartrate (Lopressor) 50 mg PO BID [facility] Last Admin: 11/29/19 09:10 Dose: Not Given Documented by: Metoprolol Tartrate (Lopressor) 5 mg IVPUSH ONETIME ONE Stop: 11/28/19 02:28 Last Admin: 11/28/19 02:38 Dose: 5 mg Documented by: Metoprolol Tartrate (Lopressor) 50 mg PO ONETIME ONE Stop: 11/28/19 02:30 Last Admin: 11/28/19 02:40 Dose: 50 mg Documented by: Morphine Sulfate (Morphine) 1 mg IVPUSH Q2H PRN PRN Reason: Pain (severe 7-10) Stop: 11/28/19 19:30 Last Admin: 11/27/19 22:27 Dose: 1 mg Documented by: Morphine Sulfate (Morphine) 2 mg IVPUSH Q2H PRN PRN Reason: Pain (severe 7-10) Stop: 11/28/19 19:30 Last Admin: 11/28/19 08:45 Dose: 2 mg Documented by: Morphine Sulfate (Morphine) 4 mg IVPUSH ONETIME ONE Stop: 11/30/19 08:03 Ondansetron HCl (Zofran) 4 mg IVPUSH ONETIME ONE Stop: 11/27/19 16:55 Last Admin: 11/27/19 17:02 Dose: 4 mg Documented by: Ondansetron HCl (Zofran) 4 mg IVPUSH Q4H PRN PRN Reason: Nausea/Vomiting Last Admin: 11/28/19 00:23 Dose: 4 mg Documented by: Potassium Chloride (Klor-Con 10) 40 meq PO ONETIME ONE Stop: 11/29/19 17:01 Last Admin: 11/29/19 17:13 Dose: 40 meq Documented by: Prochlorperazine Edisylate (Compazine) 5 mg IVPUSH ONETIME ONE Stop: 11/27/19 18:48 Last Admin: 11/27/19 18:52 Dose: 5 mg Documented by: Prochlorperazine Edisylate (Compazine) Confirm Administered Dose 10 mg .ROUTE .STK-MED ONE Stop: 11/27/19 18:50 Last Admin: 11/27/19 18:55 Dose: Not Given Documented by: Sodium Bicarbonate (Sodium Bicarbonate 8.4%) 50 meq IVPUSH ONETIME ONE Stop: 11/29/19 00:14 Last Admin: 11/29/19 00:28 Dose: 50 meq Documented by: - Exam General: Alert, Oriented, Cooperative, No Acute Distress Lungs: Clear to Auscultation, Normal Respiratory Effort Cardiovascular: Regular Rate, Regular Rhythm GI/Abdominal Exam: Normal Bowel Sounds, Soft, Non-Tender, Other (significant point tenderness to R groin, no bulging or erythema. No lymphadenopathy. NO scrotal pain or tenderness. ) Extremities: Normal Inspection, Normal Range of Motion, Non-Tender, No Pedal Edema Neurological: No New Focal Deficit Psy/Mental Status: Alert, Normal Affect, Normal Mood Sepsis Event Note - Evaluation Sepsis Screening Result: No Definite Risk - Focused Exam Vital Signs: Vital Signs Temp Pulse Pulse Resp BP BP Pulse Ox 11/30/19 04:00 97.5 F 78 16 119/70 93 L 11/30/19 00:00 98.2 F 80 16 141/80 H 95 11/29/19 21:14 75 134/74 - Problem List & Annotations (1) LATOYA (acute kidney injury) SNOMED Code(s): 70467052, 13328756 Code(s): N17.9 - ACUTE KIDNEY FAILURE, UNSPECIFIED Status: Acute Current Visit: Yes (2) Nausea & vomiting SNOMED Code(s): 22412600 Code(s): R11.2 - NAUSEA WITH VOMITING, UNSPECIFIED Status: Acute Current Visit: Yes (3) Gastroparesis SNOMED Code(s): 134387277 Code(s): K31.84 - GASTROPARESIS Status: Acute Current Visit: No (4) CAD (coronary artery disease) SNOMED Code(s): 21707950 Code(s): I25.10 - ATHSCL HEART DISEASE OF [place] CORONARY ARTERY W/O ANG PCTRS Status: Chronic Current Visit: No (5) Cardiomyopathy SNOMED Code(s): 29461468 Code(s): I42.9 - CARDIOMYOPATHY, UNSPECIFIED Status: Chronic Current Visit: No (6) DM type 1 (diabetes mellitus, type 1) SNOMED Code(s): 19129232 Code(s): E10.9 - TYPE 1 DIABETES MELLITUS WITHOUT COMPLICATIONS Status: Chronic Current Visit: No Qualifiers: Diabetes mellitus complication status: with hyperglycemia Qualified Code(s): E10.65 - Type 1 diabetes mellitus with hyperglycemia (7) History of coronary artery disease SNOMED Code(s): 835556525 Code(s): Z86.79 - PERSONAL HISTORY OF OTHER DISEASES OF THE CIRCULATORY SYSTEM Status: Chronic Current Visit: No (8) Hx of cardiac pacemaker SNOMED Code(s): 854648046 Code(s): Z95.0 - PRESENCE OF CARDIAC PACEMAKER Status: Chronic Current Visit: No (9) Hx of non-ST elevation myocardial infarction (NSTEMI) SNOMED Code(s): 734205135 Code(s): I25.2 - OLD MYOCARDIAL INFARCTION Status: Chronic Current Visit: No (10) ICD (implantable cardioverter-defibrillator) malfunction SNOMED Code(s): 38626287112749853 Code(s): T82.118A - BREAKDOWN (MECHANICAL) OF CARDIAC ELECTRONIC DEVICE, INIT Status: Chronic Current Visit: No (11) Intracranial hypertension SNOMED Code(s): 703049226 Code(s): G93.2 - BENIGN INTRACRANIAL HYPERTENSION Status: Chronic Current Visit: No (12) Postural hypotension SNOMED Code(s): 19615053 Code(s): I95.1 - ORTHOSTATIC HYPOTENSION Status: Chronic Current Visit: No - Problem List Review Problem List Initiated/Reviewed/Updated: Yes - My Orders Last 24 Hours: My Active Orders 11/29/19 09:30 Metoprolol Tartrate [Lopressor] 25 mg PO BID 11/29/19 09:34 Transfer Patient (Change bed) [ADT] Routine Telemetry Monitoring [Cardiac Monitoring] [RC] . DIRECTED 11/29/19 09:35 PT Evaluation and Treatment [CONS] Routine 11/29/19 09:38 Remove Echavarria Catheter [Urinary Catheter Removal] [RC] PER UNIT ROUTINE 11/29/19 11:30 Metoclopramide [Reglan] 5 mg PO QIDACANDBED 11/29/19 17:30 Insulin Aspart [NovoLOG] 5 unit SUBCUT TIDMEALS 11/29/19 18:00 Phosphorus #1 [Neutra-Phos] 250 mg PO QID 11/29/19 21:00 Tamsulosin [Flomax] 0.4 mg PO BEDTIME 11/30/19 08:05 GI Cocktail 20 ML PO x 1 Alum Hydrox/Mag Hydrox/Simeth [Mag-Al Plus] 15 ml Lidocaine 2% [Xylocaine 2% Viscous] 5 ml PO ONETIME Potassium Chloride 40 meq Magnesium Sulfate [Magnesium Sulfate 50%] 2 gm Sodium Chloride 0.9% [Normal Saline] 500 ml IV ONETIME 12/01/19 05:11 BASIC METABOLIC PANEL,BMP [CHEM] AM CBC WITH AUTO DIFF [HEME] AM MAGNESIUM [CHEM] AM - Plan Plan:: This 53 year old male admitted with LATOYA, DKA, N/V 1. DKA resolved. DM Type 1 - Continue Novlog SSI with meals and Lantus at bedtime - Encouraged to eat - LATOYA resolved with IVF hydration and resolution of DKA 2. Gastroparesis - Poor appetite at home due to this. - hasn't seen GI specialist, will send referral - Continue Reglan 5 mg with meals and monitor response - Protonix q12hr IV and Carafate with meals. 3. Urinary retention: - remove echavarria today and monitor. 4. Cardiomyopathy, CHF,CAD,HTN - Continue Home medications including Plavix and ASA - KCL 40 meq and 2 gm Mg today IV 5. R groin pain: - CT negative, did show constipation. Will give dulcolax VTE prophylaxis: SCDs Dispo: 1-2 days,
[2019-11-30] MEDS ORDERED: HYDROmorphone 1 MG/ML Syringe IVPUSH ONE (08:35)
[2019-11-30] MEDS: Isosorbide Mononitrate 30 MG Tab.ER PO SCH (09:18)
[2019-11-30] MEDS: Insulin Aspart 100 Units/ML 3 ML Pen SUBCUT SCH ×6 (09:19→18:56)
[2019-11-30] MEDS: Amiodarone 200 MG Tab PO SCH ×2 (09:21→23:39)
[2019-11-30] MEDS: Topiramate 50 MG Tab PO SCH ×2 (09:21→23:39)
[2019-11-30] MEDS: Metoprolol Tartrate 25 MG Tab PO SCH ×2 (09:24→23:29)
[2019-11-30] MEDS: Aspirin 81 MG Tab.Chew PO SCH (09:24)
[2019-11-30] MEDS: Clopidogrel 75 MG Tab PO SCH (09:26)
[2019-11-30] MEDS: DULoxetine 30 MG Cap PO SCH (09:26)
[2019-11-30] MEDS: atorvaSTATin 10 MG Tab PO SCH (09:27)
--- NOTE | 2019-11-30 09:48 | CT ---
CT abdomen and pelvis Technique: Multiple axial sections were obtained from above the dome of the diaphragm inferiorly through the pubic symphysis. Intravenous and oral contrast not utilized. Reconstructed coronal and sagittal images were obtained. Comparison: Previous CT abdomen and pelvis exam of 11/27/19. Findings: Left lung base shows a trace pleural effusion. Noncontrast appearance of the liver shows a low-density lesion which does not appear to represent a simple cyst within the left lobe of the liver measuring 4.4 cm. This is nonspecific. Small amount of fat is noted next to the ligamentum teres fissure which is felt to be incidental. Adrenal glands show no nodule. Pancreas shows no discrete abnormality. Surgical clips are seen from prior cholecystectomy. Spleen measures at the upper limits of normal in size. Kidneys show no hydronephrosis. Small nonobstructing stone is noted within the inferior right kidney measuring about 3 mm. Cyst is noted within the right kidney measuring 2.1 cm. No ureteral dilatation or ureteral calculi are seen. Very small amount of air is noted within the bladder, please correlate if there has been recent instrumentation. Aorta shows no aneurysm. No retroperitoneal adenopathy is seen. Increased density within the subcutaneous fat on both sides of the abdomen raising the possibility of injection sites. No pelvic mass or adenopathy is seen. Appendix felt to be visualized and appears to be normal. Slight increased stool within the colon is seen. Bone window settings were reviewed which shows no acute osseous finding. Minimal degenerative change noted within the spine. Impression: 1. Small nonobstructing calculus within the lower right kidney. No ureteral dilatation or ureteral stone is seen. 2. 4.4 cm low-density abnormality within left lobe of liver. This appears solid and is nonspecific. Contrast study as a hemangioma protocol could be considered if patient's renal function is normal. 3. Slight increased stool within the colon. 4. Small amount of air within the bladder. Please correlate if patient has had written instrumentation. 5. Other findings as noted above believed to be nonacute and incidental. Diagnostic code #9 This report was dictated in MDT
[2019-11-30] MEDS ORDERED: Bisacodyl 10 MG Supp RECTAL ONE (09:57)
[2019-11-30] MEDS: Pantoprazole 40 MG in Sodium Chloride 0.9% 10 ML IV SCH ×2 (12:58→23:28)
[2019-11-30] MEDS: Morphine 2 MG/ML SYRINGE IVPUSH PRN (17:53)
[2019-11-30] MEDS: Metoclopramide 10 MG/2 ML SDV IVPUSH SCH ×2 (17:53→23:27)
[2019-11-30] MEDS ORDERED: Haloperidol Lactate 5 MG/ML SDV IM ONE (19:07)
[2019-11-30] MEDS ORDERED: diphenhydrAMINE 50 MG/ML SDV IVPUSH ONE (19:09)
[2019-11-30] MEDS: LORazepam 2 MG/ML SDV IVPUSH ONE (19:26)
[2019-11-30] MEDS: Tamsulosin 0.4 MG Cap.ER PO SCH (23:29)
[2019-11-30] MEDS: Insulin Detemir 100 Units/ML 3 ML Pen SUBCUT SCH (23:51)
[2019-12-01] MEDS: Amiodarone 200 MG Tab PO SCH ×2 (03:29→08:55)
[2019-12-01] MEDS: Metoprolol Tartrate 25 MG Tab PO SCH ×2 (03:30→08:55)
[2019-12-01] MEDS: Tamsulosin 0.4 MG Cap.ER PO SCH (03:30)
[2019-12-01] MEDS: Topiramate 50 MG Tab PO SCH ×2 (03:30→08:56)
[2019-12-01] MEDS: Metoclopramide 10 MG/2 ML SDV IVPUSH SCH ×3 (05:43→17:39)
[2019-12-01] MEDS: Phosphorus #1 250 MG Tab PO SCH (05:47)
[2019-12-01] MEDS: Sucralfate 1 GM Tab PO SCH ×3 (05:47→17:39)
[2019-12-01 05:51] LABS: BLOOD UREA NITROGEN,BUN 8 mg/dL (7.0-18.0); CARBON DIOXIDE,CO2 24.7 mmol/L (21.0-32.0); CHLORIDE,CL 103 mmol/L (98-107); GLUCOSE RANDOM 299 mg/dL (74-106); POTASSIUM,K 3.7 mmol/L (3.5-5.1); SODIUM,NA 140 mmol/L (136-148)
--- NOTE | 2019-12-01 08:12 | PCM.PN ---
- General Info Date of Service: 12/01/19 Admission Dx/Problem (Free Text): Admission Diagnosis/Problem Admission Diagnosis/Problem Nausea and vomiting Subjective Update: Not able to tolerate diet at all, having abdominal cramping and pain with any amount of liquids. Emesis last evening had all morning pills undigested. No chest pain or SOB. Overall, not feeling well this morning due to nausea. No BM yesterday Functional Status: Reports: Ambulating, Urinating. Denies: Tolerating Diet - Review of Systems General: Reports: Fatigue, Malaise HEENT: Reports: No Symptoms Pulmonary: Reports: No Symptoms. Denies: Shortness of Breath Cardiovascular: Reports: No Symptoms. Denies: Chest Pain Gastrointestinal: Reports: Abdominal Pain, Nausea, Vomiting Genitourinary: Reports: No Symptoms. Denies: Dysuria, Frequency Musculoskeletal: Reports: No Symptoms Skin: Reports: No Symptoms Neurological: Reports: No Symptoms Psychiatric: Reports: No Symptoms - Patient Data Vitals - Most Recent: Last Vital Signs Temp 97.5 F 12/01/19 03:54 Pulse 87 12/01/19 03:54 Resp 18 12/01/19 03:54 BP 129/62 12/01/19 03:54 Pulse Ox 93 L 12/01/19 03:54 Weight - Most Recent: 82.645 kg I&O - Last 24 Hours: Intake & Output 11/30/19 12/01/19 12/01/19 22:59 06:59 14:59 Intake Total 0 Output Total 750 Balance -750 Lab Results Last 24 Hours: Laboratory Results - last 24 hr 11/30/19 11/30/19 11/30/19 Range/Units 09:16 11:22 17:29 WBC (4.0-11.0) K/uL RBC (4.50-5.90) M/uL Hgb (13.0-17.0) g/dL Hct (38.0-50.0) % MCV (80.0-98.0) fL MCH (27.0-32.0) pg MCHC (31.0-37.0) g/dL RDW Std Deviation (28.0-62.0) fl RDW Coeff of Charles (11.0-15.0) % Plt Count (150-400) K/uL MPV (7.40-12.00) fL Neut % (Auto) (48.0-80.0) % Lymph % (Auto) (16.0-40.0) % [place] % (Auto) (0.0-15.0) % Eos % (Auto) (0.0-7.0) % Baso % (Auto) (0.0-1.5) % Neut # (Auto) (1.4-5.7) K/uL Lymph # (Auto) (0.6-2.4) K/uL [place] # (Auto) (0.0-0.8) K/uL Eos # (Auto) (0.0-0.7) K/uL Baso # (Auto) (0.0-0.1) K/uL Nucleated RBC % /100WBC Nucleated RBCs # K/uL Sodium (136-148) mmol/L Potassium (3.5-5.1) mmol/L Chloride (98-107) mmol/L Carbon Dioxide (21.0-32.0) mmol/L BUN (7.0-18.0) mg/dL Creatinine (0.8-1.3) mg/dL Est Cr Clr Drug Dosing mL/min Estimated GFR (MDRD) ml/min Glucose (74-106) mg/dL POC Glucose 195 H 188 H 187 H (60-110) mg/dL Calcium (8.5-10.1) mg/dL Magnesium (1.8-2.4) mg/dL 12/01/19 12/01/19 12/01/19 Range/Units 04:37 04:37 06:08 WBC 2.79 L (4.0-11.0) K/uL RBC 3.76 L (4.50-5.90) M/uL Hgb 12.3 L (13.0-17.0) g/dL Hct 35.3 L (38.0-50.0) % MCV 93.9 (80.0-98.0) fL MCH 32.7 H (27.0-32.0) pg MCHC 34.8 (31.0-37.0) g/dL RDW Std Deviation 41.5 (28.0-62.0) fl RDW Coeff of Charles 12 (11.0-15.0) % Plt Count 145 L (150-400) K/uL MPV 9.80 (7.40-12.00) fL Neut % (Auto) 57.0 (48.0-80.0) % Lymph % (Auto) 34.4 (16.0-40.0) % [place] % (Auto) 7.2 (0.0-15.0) % Eos % (Auto) 0.7 (0.0-7.0) % Baso % (Auto) 0.7 (0.0-1.5) % Neut # (Auto) 1.6 (1.4-5.7) K/uL Lymph # (Auto) 1.0 (0.6-2.4) K/uL [place] # (Auto) 0.2 (0.0-0.8) K/uL Eos # (Auto) 0.0 (0.0-0.7) K/uL Baso # (Auto) 0.0 (0.0-0.1) K/uL Nucleated RBC % 0.0 /100WBC Nucleated RBCs # 0 K/uL Sodium 140 (136-148) mmol/L Potassium 3.7 (3.5-5.1) mmol/L Chloride 103 (98-107) mmol/L Carbon Dioxide 24.7 (21.0-32.0) mmol/L BUN 8 (7.0-18.0) mg/dL Creatinine 1.0 (0.8-1.3) mg/dL Est Cr Clr Drug Dosing 98.18 mL/min Estimated GFR (MDRD) > 60.0 ml/min Glucose 299 H (74-106) mg/dL POC Glucose 257 H (60-110) mg/dL Calcium 8.0 L (8.5-10.1) mg/dL Magnesium 1.9 (1.8-2.4) mg/dL Shin Results Last 24 Hours: Microbiology 11/27/19 20:10 Aerobic Blood Culture - Preliminary Blood - Venous - Lab Draw NO GROWTH AFTER 3 DAYS Anaerobic Blood Culture - Preliminary NO GROWTH AFTER 3 DAYS 11/27/19 20:00 Aerobic Blood Culture - Preliminary Blood - Venous NO GROWTH AFTER 3 DAYS Anaerobic Blood Culture - Preliminary NO GROWTH AFTER 3 DAYS Med Orders - Current: Current Medications Albuterol/Ipratropium (Duoneb 3.0-0.5 Mg/3 Ml) 3 ml NEB Q4HRRT PRN PRN Reason: Shortness Of Breath/wheezing Amiodarone HCl (Cordarone) 200 mg PO BID [facility] Last Admin: 12/01/19 03:29 Dose: Not Given Documented by: Aspirin (Aspirin) 81 mg PO DAILY [facility] Last Admin: 11/30/19 09:24 Dose: 81 mg Documented by: Atorvastatin Calcium (Lipitor) 10 mg PO DAILY [facility] Last Admin: 11/30/19 09:27 Dose: 10 mg Documented by: Clopidogrel Bisulfate (Plavix) 75 mg PO DAILY [facility] Last Admin: 11/30/19 09:26 Dose: 75 mg Documented by: Dextrose/Water (Dextrose 50% In Water) 25 ml IVPUSH ASDIRECTED PRN PRN Reason: Hypoglycemia Last Admin: 11/29/19 05:39 Dose: 25 ml Documented by: Duloxetine HCl (Cymbalta) 30 mg PO DAILY [facility] Last Admin: 11/30/19 09:26 Dose: 30 mg Documented by: Pantoprazole Sodium 40 mg/ (Sodium Chloride) 10 mls @ 300 mls/hr IV Q12H [facility] Last Admin: 11/30/19 23:28 Dose: 300 mls/hr Documented by: Sodium Chloride (Normal Saline) 500 mls @ 999 mls/hr IV .BOLUS [facility] Insulin Aspart (Novolog) 0 unit SUBCUT TIDAC [facility]; Protocol Last Admin: 11/30/19 18:43 Dose: 2 units Documented by: Insulin Detemir (Levemir) 10 unit SUBCUT BEDTIME [facility] Last Admin: 11/30/19 23:51 Dose: 10 unit Documented by: Isosorbide Mononitrate (Imdur) 30 mg PO DAILY [facility] Last Admin: 11/30/19 09:18 Dose: 30 mg Documented by: Metoclopramide HCl (Reglan) 5 mg IVPUSH Q6H [facility] Last Admin: 12/01/19 05:43 Dose: 5 mg Documented by: Metoprolol Tartrate (Lopressor) 25 mg PO BID [facility] Last Admin: 12/01/19 03:30 Dose: Not Given Documented by: Morphine Sulfate (Morphine) 2 mg IVPUSH Q2H PRN PRN Reason: Pain Last Admin: 11/30/19 17:53 Dose: 2 mg Documented by: Ranolazine (Ranexa) 500 mg PO BID [facility] Last Admin: 11/30/19 23:52 Dose: Not Given Documented by: Sodium Chloride (Saline Flush) 2.5 ml FLUSH ASDIRECTED PRN PRN Reason: Keep Vein Open Last Admin: 11/27/19 15:35 Dose: 2.5 ml Documented by: Sodium Chloride (Saline Flush) 2.5 ml FLUSH ASDIRECTED PRN PRN Reason: Keep Vein Open Last Admin: 11/27/19 15:35 Dose: 2.5 ml Documented by: Sucralfate (Carafate) 1 gm PO QID [facility] Last Admin: 12/01/19 05:47 Dose: Not Given Documented by: Tamsulosin HCl (Flomax) 0.4 mg PO BEDTIME [facility] Last Admin: 12/01/19 03:30 Dose: Not Given Documented by: Topiramate (Topamax) 25 mg PO BID [facility] Last Admin: 12/01/19 03:30 Dose: Not Given Documented by: Discontinued Medications Amiodarone HCl (Cordarone) 200 mg PO ONETIME ONE Stop: 11/28/19 02:52 Last Admin: 11/28/19 03:00 Dose: 200 mg Documented by: Bisacodyl (Dulcolax) 10 mg RECTAL ONETIME ONE Stop: 11/30/19 09:58 Last Admin: 11/30/19 10:43 Dose: 10 mg Documented by: Al Hydroxide/Mg Hydroxide 15 (ml/ Lidocaine HCl 5 ml) 0 ml PO ONETIME ONE Stop: 11/30/19 09:16 Last Admin: 11/30/19 09:39 Dose: 20 each Documented by: Diphenhydramine HCl (Benadryl) 25 mg IVPUSH ONETIME ONE Stop: 11/27/19 15:27 Last Admin: 11/27/19 15:32 Dose: 25 mg Documented by: Diphenhydramine HCl (Benadryl) 25 mg IVPUSH ONETIME ONE Stop: 11/30/19 19:10 Last Admin: 11/30/19 19:27 Dose: 25 mg Documented by: Famotidine (Pepcid) 20 mg IVPUSH ONETIME ONE Stop: 11/27/19 18:48 Last Admin: 11/27/19 18:54 Dose: 20 mg Documented by: Famotidine (Pepcid) Confirm Administered Dose 20 mg .ROUTE .STK-MED ONE Stop: 11/27/19 18:50 Last Admin: 11/27/19 19:01 Dose: Not Given Documented by: Haloperidol Lactate (Haldol) 1 mg IM ONETIME ONE Stop: 11/30/19 19:08 Last Admin: 11/30/19 19:25 Dose: 1 mg Documented by: Hydromorphone HCl (Dilaudid) 1 mg IVPUSH ONETIME ONE Stop: 11/30/19 08:36 Last Admin: 11/30/19 08:41 Dose: 1 mg Documented by: Sodium Chloride (Normal Saline) 500 mls @ 999 mls/hr IV .BOLUS [facility] Last Admin: 11/28/19 23:29 Dose: 999 mls/hr Documented by: Sodium Chloride (Normal Saline) 500 mls @ 999 mls/hr IV .BOLUS [facility] Last Admin: 11/27/19 17:01 Dose: 999 mls/hr Documented by: Lactated Ringer's (Ringers, Lactated) 1,000 mls @ 125 mls/hr IV ASDIRECTED [facility] Last Admin: 11/28/19 06:43 Dose: 125 mls/hr Documented by: Pantoprazole Sodium 40 mg/ (Sodium Chloride) 10 mls @ 300 mls/hr IV Q24H [facility] Piperacillin Sod/Tazobactam (Sod 3.375 gm/ Sodium Chloride) 50 mls @ 100 mls/hr IV Q8H [facility] Last Admin: 11/29/19 03:56 Dose: 100 mls/hr Documented by: Lactated Ringer's (Ringers, Lactated) 500 mls @ 999 mls/hr IV .BOLUS ONE Stop: 11/27/19 21:04 Last Admin: 11/27/19 21:10 Dose: 999 mls/hr Documented by: Sodium Chloride (Normal Saline) 1,000 mls @ 999 mls/hr IV .Bolus ONE Stop: 11/28/19 09:21 Last Admin: 11/28/19 10:05 Dose: Not Given Documented by: Lactated Ringer's (Ringers, Lactated) 1,000 mls @ 999 mls/hr IV .BOLUS ONE Stop: 11/28/19 09:32 Last Admin: 11/28/19 08:40 Dose: 999 mls/hr Documented by: Insulin Human Regular 100 unit (/ Sodium Chloride) 100 mls @ 6 mls/hr IV TITRATE [facility]; Protocol Last Titration: 11/28/19 15:04 Dose: 0 units/hr, 0 mls/hr Documented by: Lactated Ringer's (Ringers, Lactated) 1,000 mls @ 999 mls/hr IV .BOLUS ONE Stop: 11/28/19 10:36 Last Admin: 11/28/19 09:57 Dose: 999 mls/hr Documented by: Dextrose/Sodium Chloride (Dextrose 5%-1/2 Ns) 1,000 mls @ 150 mls/hr IV ASDIRECTED [facility] Last Admin: 11/28/19 14:29 Dose: 150 mls/hr Documented by: Potassium Chloride/Sodium Chloride (Normal Saline With 40 Meq Kcl) 1,000 mls @ 125 mls/hr IV Q8H [facility] Stop: 11/29/19 17:29 Last Admin: 11/29/19 10:15 Dose: 125 mls/hr Documented by: Potassium Chloride 40 meq/Magnesium Sulfate 2 gm/ Sodium Chloride 524 mls @ 131 mls/hr IV ONETIME ONE Stop: 11/30/19 12:04 Last Admin: 11/30/19 18:56 Dose: Not Given Documented by: Potassium Chloride 40 meq/Magnesium Sulfate 2 gm/ Sodium Chloride 524 mls @ 131 mls/hr IV ONETIME ONE Stop: 11/30/19 12:14 Last Admin: 11/30/19 09:39 Dose: 131 mls/hr Documented by: Insulin Aspart (Novolog) 15 unit SUBCUT ONETIME ONE Stop: 11/28/19 23:25 Last Admin: 11/28/19 23:39 Dose: Not Given Documented by: Insulin Aspart (Novolog) 15 unit SUBCUT ONETIME ONE Stop: 11/28/19 23:29 Last Admin: 11/28/19 23:30 Dose: 15 unit Documented by: Insulin Aspart (Novolog) 10 unit SUBCUT ONETIME ONE Stop: 11/29/19 00:20 Last Admin: 11/29/19 00:24 Dose: 10 unit Documented by: Insulin Aspart (Novolog) 5 unit SUBCUT TID [facility] Last Admin: 11/29/19 15:00 Dose: 5 units Documented by: Insulin Aspart (Novolog) 8 unit SUBCUT NOW STA Stop: 11/29/19 15:14 Last Admin: 11/29/19 15:17 Dose: 8 unit Documented by: Insulin Aspart (Novolog) 5 unit SUBCUT TIDMEALS [facility] Last Admin: 11/30/19 18:56 Dose: Not Given Documented by: Insulin Detemir (Levemir) 5 unit SUBCUT BEDTIME ONE Stop: 11/27/19 23:31 Last Admin: 11/27/19 23:58 Dose: 5 units Documented by: Lorazepam (Ativan) 1 mg IVPUSH ONETIME ONE Stop: 11/28/19 01:03 Last Admin: 11/28/19 01:34 Dose: 1 mg Documented by: Lorazepam (Ativan) 1 mg IVPUSH ONETIME ONE Stop: 11/30/19 19:10 Last Admin: 11/30/19 19:26 Dose: 1 mg Documented by: Metoclopramide HCl (Reglan) 10 mg IVPUSH ONETIME ONE Stop: 11/27/19 15:26 Last Admin: 11/27/19 15:30 Dose: 10 mg Documented by: Metoclopramide HCl (Reglan) 5 mg PO QIDACANDBED [facility] Last Admin: 11/30/19 18:57 Dose: Not Given Documented by: Metoprolol Tartrate (Lopressor) 50 mg PO BID [facility] Last Admin: 11/29/19 09:10 Dose: Not Given Documented by: Metoprolol Tartrate (Lopressor) 5 mg IVPUSH ONETIME ONE Stop: 11/28/19 02:28 Last Admin: 11/28/19 02:38 Dose: 5 mg Documented by: Metoprolol Tartrate (Lopressor) 50 mg PO ONETIME ONE Stop: 11/28/19 02:30 Last Admin: 11/28/19 02:40 Dose: 50 mg Documented by: Morphine Sulfate (Morphine) 1 mg IVPUSH Q2H PRN PRN Reason: Pain (severe 7-10) Stop: 11/28/19 19:30 Last Admin: 11/27/19 22:27 Dose: 1 mg Documented by: Morphine Sulfate (Morphine) 2 mg IVPUSH Q2H PRN PRN Reason: Pain (severe 7-10) Stop: 11/28/19 19:30 Last Admin: 11/28/19 08:45 Dose: 2 mg Documented by: Morphine Sulfate (Morphine) 4 mg IVPUSH ONETIME ONE Stop: 11/30/19 08:03 Last Admin: 11/30/19 08:12 Dose: 4 mg Documented by: Ondansetron HCl (Zofran) 4 mg IVPUSH ONETIME ONE Stop: 11/27/19 16:55 Last Admin: 11/27/19 17:02 Dose: 4 mg Documented by: Ondansetron HCl (Zofran) 4 mg IVPUSH Q4H PRN PRN Reason: Nausea/Vomiting Last Admin: 11/28/19 00:23 Dose: 4 mg Documented by: Potassium Chloride (Klor-Con 10) 40 meq PO ONETIME ONE Stop: 11/29/19 17:01 Last Admin: 11/29/19 17:13 Dose: 40 meq Documented by: Prochlorperazine Edisylate (Compazine) 5 mg IVPUSH ONETIME ONE Stop: 11/27/19 18:48 Last Admin: 11/27/19 18:52 Dose: 5 mg Documented by: Prochlorperazine Edisylate (Compazine) Confirm Administered Dose 10 mg .ROUTE .STK-MED ONE Stop: 11/27/19 18:50 Last Admin: 11/27/19 18:55 Dose: Not Given Documented by: Sodium Bicarbonate (Sodium Bicarbonate 8.4%) 50 meq IVPUSH ONETIME ONE Stop: 11/29/19 00:14 Last Admin: 11/29/19 00:28 Dose: 50 meq Documented by: Sodium Chloride (Saline Flush) 10 ml FLUSH ASDIRECTED PRN PRN Reason: Keep Vein Open Last Admin: 11/27/19 15:35 Dose: 10 ml Documented by: Sodium Phosphate (Neutra-Phos) 250 mg PO QID [facility] Last Admin: 12/01/19 05:47 Dose: Not Given Documented by: - Exam General: Alert, Oriented, Cooperative, No Acute Distress Lungs: Clear to Auscultation, Normal Respiratory Effort Cardiovascular: Regular Rate, Regular Rhythm GI/Abdominal Exam: Normal Bowel Sounds, Soft, Tender (to upper abdomen) Extremities: Normal Inspection, Normal Range of Motion, Non-Tender, No Pedal Edema Neurological: No New Focal Deficit Psy/Mental Status: Alert, Normal Affect, Normal Mood Sepsis Event Note - Evaluation Sepsis Screening Result: No Definite Risk - Focused Exam Vital Signs: Vital Signs Temp Pulse Resp BP Pulse Ox 12/01/19 03:54 97.5 F 87 18 129/62 93 L 11/30/19 23:57 97.3 F 82 17 124/71 95 - Problem List & Annotations (1) Nausea & vomiting SNOMED Code(s): 31064508 Code(s): R11.2 - NAUSEA WITH VOMITING, UNSPECIFIED Status: Acute Current Visit: Yes (2) Gastroparesis SNOMED Code(s): 575326306 Code(s): K31.84 - GASTROPARESIS Status: Acute Current Visit: No (3) CAD (coronary artery disease) SNOMED Code(s): 13031173 Code(s): I25.10 - ATHSCL HEART DISEASE OF [place] CORONARY ARTERY W/O ANG PCTRS Status: Chronic Current Visit: No (4) Cardiomyopathy SNOMED Code(s): 14274977 Code(s): I42.9 - CARDIOMYOPATHY, UNSPECIFIED Status: Chronic Current Visit: No (5) DM type 1 (diabetes mellitus, type 1) SNOMED Code(s): 85301080 Code(s): E10.9 - TYPE 1 DIABETES MELLITUS WITHOUT COMPLICATIONS Status: Chronic Current Visit: No Qualifiers: Diabetes mellitus complication status: with hyperglycemia Qualified Code(s): E10.65 - Type 1 diabetes mellitus with hyperglycemia (6) History of coronary artery disease SNOMED Code(s): 123858404 Code(s): Z86.79 - PERSONAL HISTORY OF OTHER DISEASES OF THE CIRCULATORY SYSTEM Status: Chronic Current Visit: No (7) Hx of cardiac pacemaker SNOMED Code(s): 851718619 Code(s): Z95.0 - PRESENCE OF CARDIAC PACEMAKER Status: Chronic Current Visit: No (8) Hx of non-ST elevation myocardial infarction (NSTEMI) SNOMED Code(s): 344682681 Code(s): I25.2 - OLD MYOCARDIAL INFARCTION Status: Chronic Current Visit: No (9) ICD (implantable cardioverter-defibrillator) malfunction SNOMED Code(s): 19604860132052183 Code(s): T82.118A - BREAKDOWN (MECHANICAL) OF CARDIAC ELECTRONIC DEVICE, INIT Status: Chronic Current Visit: No (10) Intracranial hypertension SNOMED Code(s): 173916499 Code(s): G93.2 - BENIGN INTRACRANIAL HYPERTENSION Status: Chronic Current Visit: No (11) Postural hypotension SNOMED Code(s): 24041944 Code(s): I95.1 - ORTHOSTATIC HYPOTENSION Status: Chronic Current Visit: No - Problem List Review Problem List Initiated/Reviewed/Updated: Yes - My Orders Last 24 Hours: My Active Orders 11/30/19 Dinner Clear Liquid Diet [DIET] 11/30/19 17:12 Morphine 2 mg IVPUSH Q2H PRN 11/30/19 17:15 Metoclopramide [Reglan] 5 mg IVPUSH Q6H - Plan Plan:: This 53 year old male admitted with LATOYA, DKA, N/V 1.Gastroparesis - N/V continued, decrease diet to CL. - hasn't seen GI specialist, will send referral -Increase Reglan to 10 mg IV Q6hrs and monitor response. - Protonix q12hr IV - Hold Carafate due to nausea and vomiting. - Gastric emptying study ordered - NPO 2. DM Type 1 - Continue Novolog SSI with meals and Lantus at bedtime 3. Urinary retention: resolved -Flomax added, has improved urination. 4. Cardiomyopathy, CHF,CAD,HTN - Continue Home medications including Plavix and ASA VTE prophylaxis: SCDs Dispo: 1-2 days,
[2019-12-01] MEDS: Clopidogrel 75 MG Tab PO SCH (08:56)
[2019-12-01] MEDS: atorvaSTATin 10 MG Tab PO SCH (08:56)
[2019-12-01] MEDS: DULoxetine 30 MG Cap PO SCH (08:56)
[2019-12-01] MEDS: Isosorbide Mononitrate 30 MG Tab.ER PO SCH (08:56)
[2019-12-01] MEDS: Aspirin 81 MG Tab.Chew PO SCH (08:56)
[2019-12-01] MEDS: Insulin Aspart 100 Units/ML 3 ML Pen SUBCUT SCH ×3 (08:58→17:39)
[2019-12-01] MEDS ORDERED: Bisacodyl 10 MG Supp RECTAL ONE (09:20)
[2019-12-01] MEDS ORDERED: Promethazine 25 MG/ML SDV IM PRN (10:08)
[2019-12-01] MEDS: Pantoprazole 40 MG in Sodium Chloride 0.9% 10 ML IV SCH (12:29)
[2019-12-01] MEDS: Morphine 2 MG/ML SYRINGE IVPUSH PRN (20:11)
[2019-12-01] MEDS: Lactated Ringers 1,000 ML IV SCH (21:38)
[2019-12-01] MEDS: Insulin Detemir 100 Units/ML 3 ML Pen SUBCUT SCH (21:41)
[2019-12-02] MEDS: Sucralfate 1 GM Tab PO SCH ×4 (00:29→17:15)
[2019-12-02] MEDS: Metoclopramide 10 MG/2 ML SDV IVPUSH SCH ×3 (00:29→13:14)
[2019-12-02] MEDS: Pantoprazole 40 MG in Sodium Chloride 0.9% 10 ML IV SCH ×2 (00:29→13:12)
[2019-12-02] MEDS: Topiramate 50 MG Tab PO SCH ×2 (00:30→09:02)
[2019-12-02] MEDS: Metoprolol Tartrate 25 MG Tab PO SCH ×2 (00:31→08:59)
[2019-12-02] MEDS: Amiodarone 200 MG Tab PO SCH ×2 (00:31→09:02)
[2019-12-02] MEDS: Tamsulosin 0.4 MG Cap.ER PO SCH (00:32)
[2019-12-02 06:06] LABS: BLOOD UREA NITROGEN,BUN 5 mg/dL (7.0-18.0); CARBON DIOXIDE,CO2 28.4 mmol/L (21.0-32.0); CHLORIDE,CL 107 mmol/L (98-107); GLUCOSE RANDOM 127 mg/dL (74-106); SODIUM,NA 143 mmol/L (136-148)
[2019-12-02] MEDS: Insulin Aspart 100 Units/ML 3 ML Pen SUBCUT SCH ×3 (06:50→17:19)
[2019-12-02] MEDS: atorvaSTATin 10 MG Tab PO SCH (09:01)
[2019-12-02] MEDS: Isosorbide Mononitrate 30 MG Tab.ER PO SCH (09:01)
[2019-12-02] MEDS: DULoxetine 30 MG Cap PO SCH (09:02)
[2019-12-02] MEDS: Aspirin 81 MG Tab.Chew PO SCH (09:02)
[2019-12-02] MEDS: Clopidogrel 75 MG Tab PO SCH (09:02)
[2019-12-02] MEDS: Lactated Ringers 1,000 ML IV SCH (09:11)
[2019-12-02] MEDS ORDERED: Potassium Chloride Riders 40 MEQ in Premix Bag 1 BAG IV ONE ×2 (09:36→14:30)
[2019-12-02] MEDS ORDERED: Magnesium Sulfate/Water 2 GM/50 ML Premix Bag IV ONE (09:39)
--- NOTE | 2019-12-02 09:40 | PCM.PN ---
- General Info Date of Service: 12/02/19 Admission Dx/Problem (Free Text): Admission Diagnosis/Problem Admission Diagnosis/Problem Nausea and vomiting - Patient Data Vitals - Most Recent: Last Vital Signs Temp 36.9 C 12/02/19 07:03 Pulse 72 12/02/19 08:59 Resp 16 12/02/19 07:03 BP 123/68 12/02/19 09:01 Pulse Ox 96 12/02/19 04:00 Weight - Most Recent: 82.645 kg I&O - Last 24 Hours: Intake & Output 12/01/19 12/02/19 12/02/19 22:59 06:59 14:59 Intake Total 410 100 Output Total 950 900 Balance -540 -800 Lab Results Last 24 Hours: Laboratory Results - last 24 hr 12/01/19 12/01/19 12/02/19 Range/Units 11:35 16:33 05:00 WBC 2.74 L (4.0-11.0) K/uL RBC 3.94 L (4.50-5.90) M/uL Hgb 12.7 L (13.0-17.0) g/dL Hct 36.7 L (38.0-50.0) % MCV 93.1 (80.0-98.0) fL MCH 32.2 H (27.0-32.0) pg MCHC 34.6 (31.0-37.0) g/dL RDW Std Deviation 41.4 (28.0-62.0) fl RDW Coeff of Charles 12 (11.0-15.0) % Plt Count 171 (150-400) K/uL MPV 9.70 (7.40-12.00) fL Neut % (Auto) 38.6 L (48.0-80.0) % Lymph % (Auto) 50.0 H (16.0-40.0) % Wagoner % (Auto) 7.7 (0.0-15.0) % Eos % (Auto) 2.6 (0.0-7.0) % Baso % (Auto) 1.1 (0.0-1.5) % Neut # (Auto) 1.1 L (1.4-5.7) K/uL Lymph # (Auto) 1.4 (0.6-2.4) K/uL Wagoner # (Auto) 0.2 (0.0-0.8) K/uL Eos # (Auto) 0.1 (0.0-0.7) K/uL Baso # (Auto) 0.0 (0.0-0.1) K/uL Nucleated RBC % 0.0 /100WBC Nucleated RBCs # 0 K/uL Sodium (136-148) mmol/L Potassium (3.5-5.1) mmol/L Chloride (98-107) mmol/L Carbon Dioxide (21.0-32.0) mmol/L BUN (7.0-18.0) mg/dL Creatinine (0.8-1.3) mg/dL Est Cr Clr Drug Dosing mL/min Estimated GFR (MDRD) ml/min Glucose (74-106) mg/dL POC Glucose 226 H 241 H (60-110) mg/dL Calcium (8.5-10.1) mg/dL Magnesium (1.8-2.4) mg/dL 12/02/19 12/02/19 Range/Units 05:00 05:58 WBC (4.0-11.0) K/uL RBC (4.50-5.90) M/uL Hgb (13.0-17.0) g/dL Hct (38.0-50.0) % MCV (80.0-98.0) fL MCH (27.0-32.0) pg MCHC (31.0-37.0) g/dL RDW Std Deviation (28.0-62.0) fl RDW Coeff of Charles (11.0-15.0) % Plt Count (150-400) K/uL MPV (7.40-12.00) fL Neut % (Auto) (48.0-80.0) % Lymph % (Auto) (16.0-40.0) % Wagoner % (Auto) (0.0-15.0) % Eos % (Auto) (0.0-7.0) % Baso % (Auto) (0.0-1.5) % Neut # (Auto) (1.4-5.7) K/uL Lymph # (Auto) (0.6-2.4) K/uL Wagoner # (Auto) (0.0-0.8) K/uL Eos # (Auto) (0.0-0.7) K/uL Baso # (Auto) (0.0-0.1) K/uL Nucleated RBC % /100WBC Nucleated RBCs # K/uL Sodium 143 (136-148) mmol/L Potassium 3.0 L (3.5-5.1) mmol/L Chloride 107 (98-107) mmol/L Carbon Dioxide 28.4 (21.0-32.0) mmol/L BUN 5 L (7.0-18.0) mg/dL Creatinine 0.9 (0.8-1.3) mg/dL Est Cr Clr Drug Dosing 109.09 mL/min Estimated GFR (MDRD) > 60.0 ml/min Glucose 127 H (74-106) mg/dL POC Glucose 120 H (60-110) mg/dL Calcium 8.2 L (8.5-10.1) mg/dL Magnesium 1.8 (1.8-2.4) mg/dL Shin Results Last 24 Hours: Microbiology 11/27/19 20:10 Aerobic Blood Culture - Preliminary Blood - Venous - Lab Draw NO GROWTH AFTER 4 DAYS Anaerobic Blood Culture - Preliminary NO GROWTH AFTER 4 DAYS 11/27/19 20:00 Aerobic Blood Culture - Preliminary Blood - Venous NO GROWTH AFTER 4 DAYS Anaerobic Blood Culture - Preliminary NO GROWTH AFTER 4 DAYS 11/27/19 15:00 Helicobacter pylori Antigen - Final Stool / Feces Med Orders - Current: Current Medications Albuterol/Ipratropium (Duoneb 3.0-0.5 Mg/3 Ml) 3 ml NEB Q4HRRT PRN PRN Reason: Shortness Of Breath/wheezing Amiodarone HCl (Cordarone) 200 mg PO BID [facility] Last Admin: 12/02/19 09:02 Dose: 200 mg Documented by: Aspirin (Aspirin) 81 mg PO DAILY [facility] Last Admin: 12/02/19 09:02 Dose: 81 mg Documented by: Atorvastatin Calcium (Lipitor) 10 mg PO DAILY [facility] Last Admin: 12/02/19 09:01 Dose: 10 mg Documented by: Clopidogrel Bisulfate (Plavix) 75 mg PO DAILY [facility] Last Admin: 12/02/19 09:02 Dose: 75 mg Documented by: Dextrose/Water (Dextrose 50% In Water) 25 ml IVPUSH ASDIRECTED PRN PRN Reason: Hypoglycemia Last Admin: 11/29/19 05:39 Dose: 25 ml Documented by: Duloxetine HCl (Cymbalta) 30 mg PO DAILY [facility] Last Admin: 12/02/19 09:02 Dose: 30 mg Documented by: Pantoprazole Sodium 40 mg/ (Sodium Chloride) 10 mls @ 300 mls/hr IV Q12H [facility] Last Admin: 12/02/19 00:29 Dose: 300 mls/hr Documented by: Sodium Chloride (Normal Saline) 500 mls @ 999 mls/hr IV .BOLUS [facility] Lactated Ringer's (Ringers, Lactated) 1,000 mls @ 100 mls/hr IV ASDIRECTED [facility] Last Admin: 12/02/19 09:11 Dose: 100 mls/hr Documented by: Potassium Chloride 40 meq/ (Premix) 100 mls @ 25 mls/hr IV ONETIME ONE Stop: 12/02/19 13:35 Insulin Aspart (Novolog) 0 unit SUBCUT TIDAC [facility]; Protocol Last Admin: 12/02/19 06:50 Dose: Not Given Documented by: Insulin Detemir (Levemir) 10 unit SUBCUT BEDTIME [facility] Last Admin: 12/01/19 21:41 Dose: 10 unit Documented by: Isosorbide Mononitrate (Imdur) 30 mg PO DAILY [facility] Last Admin: 12/02/19 09:01 Dose: 30 mg Documented by: Metoclopramide HCl (Reglan) 10 mg IVPUSH Q6H [facility] Last Admin: 12/02/19 06:11 Dose: 10 mg Documented by: Metoprolol Tartrate (Lopressor) 25 mg PO BID [facility] Last Admin: 12/02/19 08:59 Dose: 25 mg Documented by: Morphine Sulfate (Morphine) 2 mg IVPUSH Q2H PRN PRN Reason: Pain Last Admin: 12/01/19 20:11 Dose: 2 mg Documented by: Oxycodone HCl (Oxycodone) 5 mg PO Q8H [facility] Promethazine HCl (Phenergan) 25 mg IM Q6H PRN PRN Reason: Nausea Last Admin: 12/01/19 20:10 Dose: 25 mg Documented by: Ranolazine (Ranexa) 500 mg PO BID [facility] Last Admin: 12/02/19 09:01 Dose: 500 mg Documented by: Sodium Chloride (Saline Flush) 2.5 ml FLUSH ASDIRECTED PRN PRN Reason: Keep Vein Open Last Admin: 11/27/19 15:35 Dose: 2.5 ml Documented by: Sodium Chloride (Saline Flush) 2.5 ml FLUSH ASDIRECTED PRN PRN Reason: Keep Vein Open Last Admin: 11/27/19 15:35 Dose: 2.5 ml Documented by: Sucralfate (Carafate) 1 gm PO QID [facility] Last Admin: 12/02/19 06:11 Dose: Not Given Documented by: Tamsulosin HCl (Flomax) 0.4 mg PO BEDTIME [facility] Last Admin: 12/02/19 00:32 Dose: 0.4 mg Documented by: Topiramate (Topamax) 25 mg PO BID [facility] Last Admin: 12/02/19 09:02 Dose: 25 mg Documented by: Discontinued Medications Amiodarone HCl (Cordarone) 200 mg PO ONETIME ONE Stop: 11/28/19 02:52 Last Admin: 11/28/19 03:00 Dose: 200 mg Documented by: Bisacodyl (Dulcolax) 10 mg RECTAL ONETIME ONE Stop: 11/30/19 09:58 Last Admin: 11/30/19 10:43 Dose: 10 mg Documented by: Bisacodyl (Dulcolax) 10 mg RECTAL ONETIME ONE Stop: 12/01/19 09:21 Last Admin: 12/01/19 10:22 Dose: 10 mg Documented by: Al Hydroxide/Mg Hydroxide 15 (ml/ Lidocaine HCl 5 ml) 0 ml PO ONETIME ONE Stop: 11/30/19 09:16 Last Admin: 11/30/19 09:39 Dose: 20 each Documented by: Diphenhydramine HCl (Benadryl) 25 mg IVPUSH ONETIME ONE Stop: 11/27/19 15:27 Last Admin: 11/27/19 15:32 Dose: 25 mg Documented by: Diphenhydramine HCl (Benadryl) 25 mg IVPUSH ONETIME ONE Stop: 11/30/19 19:10 Last Admin: 11/30/19 19:27 Dose: 25 mg Documented by: Famotidine (Pepcid) 20 mg IVPUSH ONETIME ONE Stop: 11/27/19 18:48 Last Admin: 11/27/19 18:54 Dose: 20 mg Documented by: Famotidine (Pepcid) Confirm Administered Dose 20 mg .ROUTE .STK-MED ONE Stop: 11/27/19 18:50 Last Admin: 11/27/19 19:01 Dose: Not Given Documented by: Haloperidol Lactate (Haldol) 1 mg IM ONETIME ONE Stop: 11/30/19 19:08 Last Admin: 11/30/19 19:25 Dose: 1 mg Documented by: Hydromorphone HCl (Dilaudid) 1 mg IVPUSH ONETIME ONE Stop: 11/30/19 08:36 Last Admin: 11/30/19 08:41 Dose: 1 mg Documented by: Sodium Chloride (Normal Saline) 500 mls @ 999 mls/hr IV .BOLUS [facility] Last Admin: 11/28/19 23:29 Dose: 999 mls/hr Documented by: Sodium Chloride (Normal Saline) 500 mls @ 999 mls/hr IV .BOLUS [facility] Last Admin: 11/27/19 17:01 Dose: 999 mls/hr Documented by: Lactated Ringer's (Ringers, Lactated) 1,000 mls @ 125 mls/hr IV ASDIRECTED [facility] Last Admin: 11/28/19 06:43 Dose: 125 mls/hr Documented by: Pantoprazole Sodium 40 mg/ (Sodium Chloride) 10 mls @ 300 mls/hr IV Q24H [facility] Piperacillin Sod/Tazobactam (Sod 3.375 gm/ Sodium Chloride) 50 mls @ 100 mls/hr IV Q8H [facility] Last Admin: 11/29/19 03:56 Dose: 100 mls/hr Documented by: Lactated Ringer's (Ringers, Lactated) 500 mls @ 999 mls/hr IV .BOLUS ONE Stop: 11/27/19 21:04 Last Admin: 11/27/19 21:10 Dose: 999 mls/hr Documented by: Sodium Chloride (Normal Saline) 1,000 mls @ 999 mls/hr IV .Bolus ONE Stop: 11/28/19 09:21 Last Admin: 11/28/19 10:05 Dose: Not Given Documented by: Lactated Ringer's (Ringers, Lactated) 1,000 mls @ 999 mls/hr IV .BOLUS ONE Stop: 11/28/19 09:32 Last Admin: 11/28/19 08:40 Dose: 999 mls/hr Documented by: Insulin Human Regular 100 unit (/ Sodium Chloride) 100 mls @ 6 mls/hr IV TITRATE [facility]; Protocol Last Titration: 11/28/19 15:04 Dose: 0 units/hr, 0 mls/hr Documented by: Lactated Ringer's (Ringers, Lactated) 1,000 mls @ 999 mls/hr IV .BOLUS ONE Stop: 11/28/19 10:36 Last Admin: 11/28/19 09:57 Dose: 999 mls/hr Documented by: Dextrose/Sodium Chloride (Dextrose 5%-1/2 Ns) 1,000 mls @ 150 mls/hr IV ASDIRECTED [facility] Last Admin: 11/28/19 14:29 Dose: 150 mls/hr Documented by: Potassium Chloride/Sodium Chloride (Normal Saline With 40 Meq Kcl) 1,000 mls @ 125 mls/hr IV Q8H [facility] Stop: 11/29/19 17:29 Last Admin: 11/29/19 10:15 Dose: 125 mls/hr Documented by: Potassium Chloride 40 meq/Magnesium Sulfate 2 gm/ Sodium Chloride 524 mls @ 131 mls/hr IV ONETIME ONE Stop: 11/30/19 12:04 Last Admin: 11/30/19 18:56 Dose: Not Given Documented by: Potassium Chloride 40 meq/Magnesium Sulfate 2 gm/ Sodium Chloride 524 mls @ 131 mls/hr IV ONETIME ONE Stop: 11/30/19 12:14 Last Admin: 11/30/19 09:39 Dose: 131 mls/hr Documented by: Insulin Aspart (Novolog) 15 unit SUBCUT ONETIME ONE Stop: 11/28/19 23:25 Last Admin: 11/28/19 23:39 Dose: Not Given Documented by: Insulin Aspart (Novolog) 15 unit SUBCUT ONETIME ONE Stop: 11/28/19 23:29 Last Admin: 11/28/19 23:30 Dose: 15 unit Documented by: Insulin Aspart (Novolog) 10 unit SUBCUT ONETIME ONE Stop: 11/29/19 00:20 Last Admin: 11/29/19 00:24 Dose: 10 unit Documented by: Insulin Aspart (Novolog) 5 unit SUBCUT TID [facility] Last Admin: 11/29/19 15:00 Dose: 5 units Documented by: Insulin Aspart (Novolog) 8 unit SUBCUT NOW STA Stop: 11/29/19 15:14 Last Admin: 11/29/19 15:17 Dose: 8 unit Documented by: Insulin Aspart (Novolog) 5 unit SUBCUT TIDMEALS [facility] Last Admin: 11/30/19 18:56 Dose: Not Given Documented by: Insulin Detemir (Levemir) 5 unit SUBCUT BEDTIME ONE Stop: 11/27/19 23:31 Last Admin: 11/27/19 23:58 Dose: 5 units Documented by: Lorazepam (Ativan) 1 mg IVPUSH ONETIME ONE Stop: 11/28/19 01:03 Last Admin: 11/28/19 01:34 Dose: 1 mg Documented by: Lorazepam (Ativan) 1 mg IVPUSH ONETIME ONE Stop: 11/30/19 19:10 Last Admin: 11/30/19 19:26 Dose: 1 mg Documented by: Metoclopramide HCl (Reglan) 10 mg IVPUSH ONETIME ONE Stop: 11/27/19 15:26 Last Admin: 11/27/19 15:30 Dose: 10 mg Documented by: Metoclopramide HCl (Reglan) 5 mg PO QIDACANDBED [facility] Last Admin: 11/30/19 18:57 Dose: Not Given Documented by: Metoclopramide HCl (Reglan) 5 mg IVPUSH Q6H [facility] Last Admin: 12/01/19 05:43 Dose: 5 mg Documented by: Metoprolol Tartrate (Lopressor) 50 mg PO BID [facility] Last Admin: 11/29/19 09:10 Dose: Not Given Documented by: Metoprolol Tartrate (Lopressor) 5 mg IVPUSH ONETIME ONE Stop: 11/28/19 02:28 Last Admin: 11/28/19 02:38 Dose: 5 mg Documented by: Metoprolol Tartrate (Lopressor) 50 mg PO ONETIME ONE Stop: 11/28/19 02:30 Last Admin: 11/28/19 02:40 Dose: 50 mg Documented by: Morphine Sulfate (Morphine) 1 mg IVPUSH Q2H PRN PRN Reason: Pain (severe 7-10) Stop: 11/28/19 19:30 Last Admin: 11/27/19 22:27 Dose: 1 mg Documented by: Morphine Sulfate (Morphine) 2 mg IVPUSH Q2H PRN PRN Reason: Pain (severe 7-10) Stop: 11/28/19 19:30 Last Admin: 11/28/19 08:45 Dose: 2 mg Documented by: Morphine Sulfate (Morphine) 4 mg IVPUSH ONETIME ONE Stop: 11/30/19 08:03 Last Admin: 11/30/19 08:12 Dose: 4 mg Documented by: Ondansetron HCl (Zofran) 4 mg IVPUSH ONETIME ONE Stop: 11/27/19 16:55 Last Admin: 11/27/19 17:02 Dose: 4 mg Documented by: Ondansetron HCl (Zofran) 4 mg IVPUSH Q4H PRN PRN Reason: Nausea/Vomiting Last Admin: 11/28/19 00:23 Dose: 4 mg Documented by: Potassium Chloride (Klor-Con 10) 40 meq PO ONETIME ONE Stop: 11/29/19 17:01 Last Admin: 11/29/19 17:13 Dose: 40 meq Documented by: Prochlorperazine Edisylate (Compazine) 5 mg IVPUSH ONETIME ONE Stop: 11/27/19 18:48 Last Admin: 11/27/19 18:52 Dose: 5 mg Documented by: Prochlorperazine Edisylate (Compazine) Confirm Administered Dose 10 mg .ROUTE .STK-MED ONE Stop: 11/27/19 18:50 Last Admin: 11/27/19 18:55 Dose: Not Given Documented by: Sodium Bicarbonate (Sodium Bicarbonate 8.4%) 50 meq IVPUSH ONETIME ONE Stop: 11/29/19 00:14 Last Admin: 11/29/19 00:28 Dose: 50 meq Documented by: Sodium Chloride (Saline Flush) 10 ml FLUSH ASDIRECTED PRN PRN Reason: Keep Vein Open Last Admin: 11/27/19 15:35 Dose: 10 ml Documented by: Sodium Phosphate (Neutra-Phos) 250 mg PO QID [facility] Last Admin: 12/01/19 05:47 Dose: Not Given Documented by: Sepsis Event Note - Evaluation Sepsis Screening Result: No Definite Risk - Focused Exam Vital Signs: Vital Signs Temp Pulse Pulse Resp BP BP Pulse Ox 12/02/19 09:01 123/68 12/02/19 08:59 72 123/68 12/02/19 07:03 36.9 C 71 16 123/68 09/24/20 04:00 36.1 C 70 14 129/85 96 12/02/19 00:31 76 130/80 12/02/19 00:15 36.7 C 76 15 130/80 94 L - Problem List & Annotations (1) Nausea & vomiting SNOMED Code(s): 59186774 Code(s): R11.2 - NAUSEA WITH VOMITING, UNSPECIFIED Status: Acute Current Visit: Yes (2) Abdominal pain SNOMED Code(s): 54474861 Code(s): R10.9 - UNSPECIFIED ABDOMINAL PAIN Status: Acute Current Visit: No Qualifiers: Abdominal location: right upper quadrant Qualified Code(s): R10.11 - Right upper quadrant pain (3) Bloody emesis SNOMED Code(s): 9787066 Code(s): K92.0 - HEMATEMESIS Status: Acute Current Visit: Yes (4) Gastroparesis SNOMED Code(s): 878874482 Code(s): K31.84 - GASTROPARESIS Status: Acute Current Visit: No (5) DM type 1 (diabetes mellitus, type 1) SNOMED Code(s): 44347191 Code(s): E10.9 - TYPE 1 DIABETES MELLITUS WITHOUT COMPLICATIONS Status: Chronic Current Visit: No Qualifiers: Diabetes mellitus complication status: with hyperglycemia Qualified Code(s): E10.65 - Type 1 diabetes mellitus with hyperglycemia (6) History of coronary artery disease SNOMED Code(s): 285642174 Code(s): Z86.79 - PERSONAL HISTORY OF OTHER DISEASES OF THE CIRCULATORY SYSTEM Status: Chronic Current Visit: No (7) Hx of cardiac pacemaker SNOMED Code(s): 513827598 Code(s): Z95.0 - PRESENCE OF CARDIAC PACEMAKER Status: Chronic Current Visit: No (8) LATOYA (acute kidney injury) SNOMED Code(s): 69399948, 60483029 Code(s): N17.9 - ACUTE KIDNEY FAILURE, UNSPECIFIED Status: Resolved Current Visit: Yes - My Orders Last 24 Hours: My Active Orders 12/01/19 21:30 Lactated Ringers [Ringers, Lactated] 1,000 ml IV ASDIRECTED 12/02/19 09:36 Potassium Chloride Riders [KCL 40 MEQ in Water 100 ML] 40 meq Premix Bag 1 bag IV ONETIME 12/02/19 09:39 Magnesium Sulfate/Water [Magnesium Sulfate in Water Premix] 2 gm IV ONETIME ONE 12/02/19 09:45 oxyCODONE 5 mg PO Q8H - Plan Plan:: This 53 year old male admitted with LATOYA, DKA, N/V 1.Gastroparesis - N/V continued, decrease diet to CL. - hasn't seen GI specialist, will send referral -Increase Reglan to 10 mg IV Q6hrs and monitor response. - Protonix q12hr IV - Hold Carafate due to nausea and vomiting. - Gastric emptying study ordered - NPO 2. DM Type 1 - Continue Novolog SSI with meals and Lantus at bedtime 3. Urinary retention: resolved -Flomax added, has improved urination. 4. Cardiomyopathy, CHF,CAD,HTN - Continue Home medications including Plavix and ASA VTE prophylaxis: SCDs Dispo: 1-2 days,
[2019-12-02] MEDS ORDERED: Magnesium Sulfate/Water 2 GM/50 ML BAG IV ONE ×2 (09:45→13:00)
[2019-12-02] MEDS: oxyCODONE 5 MG Tab PO SCH ×2 (10:01→17:15)
--- NOTE | 2019-12-02 13:41 | NM ---
Gastric emptying study Technique: 1.2 mCi of technetium 99m sulfur colloid was mixed with egg and toast. Patient injected the mixture and scintigraphic imaging then obtained over the upper abdomen. Findings: T1/2 is 906 minutes Impression: 1. Findings compatible with delayed gastric emptying. Diagnostic code #3 Study was dictated in MDT
[2019-12-02] MEDS ORDERED: Metoclopramide 10 MG/2 ML SDV IM PRN (14:51)
[2019-12-02] MEDS ORDERED: Metoclopramide 5 MG Tab PO SCH (15:00)
[2019-12-02 15:47] VITALS: BP 97/56; PULSE 68
--- NOTE | 2019-12-02 18:13 | PCM.DCSUM1 ---
Discharge Summary - Hospital Course Free Text/Narrative:: Patient is 53 y/o M with PMH of CAD, s/ stents, bypass surgery , s/p pacemaker DM, gastroparesis, presents with Nausea and vomiting for the past 2 days he states he has not been able to keep anything down for past 48 hours. States his vomiting was pretty severe and there were streaks of blood mixed with vomitus. Vomiting was associated with pain across the upper aspect of his abdomen, he denies any diarrhea he is also been having chest pain which is actually chronic he has an extensive cardiac history with cardiomyopathy syncope and multiple stents and bypass surgery. He denies any fever chills no known exposures no known bad food. Nothing seems to make it better or worse. In the ER CT scan abdomen was done which was unremarkable for any acute process. His WBC count was high, he was tachycardiac, received IV fluids, and Zofran and pain meds, P atients xray was clear, UA pending, troponin negative. Patient is admitted for further management. Patient was kept npo, given low dose Levemir, started on IV fluids, IV PPI, IV zofran. HbA1c was high. Patient developed DKA next AM, was shifted to ICU, started on insulin gtt, eventually DKA resolved, patient continued to have abdominal pain, repeat CT scan abdomen didnt show anything acute, gastric emptying study showed delayed emptying, patient was started on IV Reglan and later switched to oral Reglan TID with meals.Patient Qtc was monitored, his appetite improved he was able to tolerate sift diet, patient was medically stable for dc and recommended to fu with PCP upon dc. - Discharge Data Discharge Date: 12/02/19 Discharge Disposition: Home, Self-Care 01 Condition: Fair - Referral to Home Health Primary Care Physician: PCP None - Discharge Diagnosis/Problem(s) (1) Nausea & vomiting SNOMED Code(s): 25945677 ICD Code: R11.2 - NAUSEA WITH VOMITING, UNSPECIFIED Status: Acute (2) Abdominal pain SNOMED Code(s): 76814628 ICD Code: R10.9 - UNSPECIFIED ABDOMINAL PAIN Status: Acute Qualifiers: Abdominal location: right upper quadrant Qualified Code(s): R10.11 - Right upper quadrant pain (3) Bloody emesis SNOMED Code(s): 9565025 ICD Code: K92.0 - HEMATEMESIS Status: Acute (4) Gastroparesis SNOMED Code(s): 801285011 ICD Code: K31.84 - GASTROPARESIS Status: Acute (5) DM type 1 (diabetes mellitus, type 1) SNOMED Code(s): 37651322 ICD Code: E10.9 - TYPE 1 DIABETES MELLITUS WITHOUT COMPLICATIONS Status: Chronic Qualifiers: Diabetes mellitus complication status: with hyperglycemia Qualified Code(s): E10.65 - Type 1 diabetes mellitus with hyperglycemia (6) History of coronary artery disease SNOMED Code(s): 003202422 ICD Code: Z86.79 - PERSONAL HISTORY OF OTHER DISEASES OF THE CIRCULATORY SYSTEM Status: Chronic (7) Hx of cardiac pacemaker SNOMED Code(s): 701414196 ICD Code: Z95.0 - PRESENCE OF CARDIAC PACEMAKER Status: Chronic (8) LATOYA (acute kidney injury) SNOMED Code(s): 83151539, 79324455 ICD Code: N17.9 - ACUTE KIDNEY FAILURE, UNSPECIFIED Status: Resolved - Patient Summary/Data Consults: Consultations 11/29/19 09:35 PT Evaluation and Treatment [CONS] Routine - Discharge Plan *PRESCRIPTION DRUG MONITORING PROGRAM REVIEWED*: Not Applicable *COPY OF PRESCRIPTION DRUG MONITORING REPORT IN PATIENT CEZAR: Not Applicable Prescriptions/Med Rec: Tamsulosin [Flomax] 0.4 mg PO BEDTIME #30 cap.er Acetaminophen [Mapap] 500 mg PO BID PRN #60 tablet PRN Reason: Pain Pantoprazole [ProTONIX] 40 mg PO DAILY #30 tab.cr Metoclopramide [Reglan] 5 mg PO Q8H 1 Days #60 tablet Home Medications: Home Meds Insulin Aspart [NovoLOG] See Protocol SUBCUT TIDMEALS #0 12/25/16 [Rx] Metoprolol Tartrate 50 mg PO BID 01/05/19 [History] Topiramate 25 mg PO BID 01/05/19 [History] atorvaSTATin [Lipitor] 10 mg PO DAILY 01/05/19 [History] Insulin Lispro [Humalog Kwikpen U-100] 1 unit SQ ASDIRECTED 06/11/19 [History] Losartan [Cozaar] 50 mg PO DAILY 06/11/19 [History] Apixaban [Eliquis] 5 mg PO BID 11/02/19 [History] DULoxetine [Cymbalta] 30 mg PO DAILY 11/02/19 [History] Ranolazine [Ranolazine ER] 500 mg PO BID 11/02/19 [History] GI Cocktail 20 ml PO Q6H PRN #1 bot 11/03/19 [Rx] Pantoprazole Sodium [Protonix] 40 mg PO BID #60 tablet.dr 11/03/19 [Rx] Amiodarone [Cordarone] 200 mg PO BID 11/27/19 [History] Aspirin 81 mg PO DAILY 11/27/19 [History] Clopidogrel [Plavix] 75 mg PO DAILY 11/27/19 [History] Isosorbide Mononitrate [Isosorbide Mononitrate ER] 30 mg PO DAILY 11/27/19 [History] Potassium Chloride 10 meq PO BID 11/27/19 [History] Sucralfate [Carafate] 1 gm PO QID 11/27/19 [History] Acetaminophen [Mapap] 500 mg PO BID PRN #60 tablet 12/02/19 [Rx] Metoclopramide [Reglan] 5 mg PO Q8H 1 Days #60 tablet 12/02/19 [Rx] Pantoprazole [ProTONIX] 40 mg PO DAILY #30 tab.cr 12/02/19 [Rx] Tamsulosin [Flomax] 0.4 mg PO BEDTIME #30 cap.er 12/02/19 [Rx] Patient Handouts: Metoclopramide tablets, Acetaminophen tablets or caplets, Pantoprazole tablets, Tamsulosin capsules, Preventing Diabetic Ketoacidosis, Gastroparesis Referrals: Zoila Mart MD [Ordering Only Provider] - 12/06/19 3:15 pm (Dr. Mart @ [facility] Cardiology) Mel King NP [Ordering Only Provider] - 12/26/20 10:00 am (Mel King NP @ [facility] - GI specialty) Elder Diez MD [Ordering Only Provider] - - Discharge Summary/Plan Comment DC Time >30 min.: No - Patient Data Vitals - Most Recent: Last Vital Signs Temp 35.7 C L 12/02/19 15:45 Pulse 68 12/02/19 15:45 Resp 22 H 12/02/19 15:45 BP 97/56 L 12/02/19 15:45 Pulse Ox 97 12/02/19 15:45 Weight - Most Recent: 82.645 kg I&O - Last 24 hours: Intake & Output 12/02/19 12/02/19 12/02/19 06:59 14:59 22:59 Intake Total 100 850 Output Total 900 750 Balance -800 100 Lab Results - Last 24 hrs: Laboratory Results - last 24 hr 12/02/19 12/02/19 12/02/19 Range/Units 05:00 05:00 05:58 WBC 2.74 L (4.0-11.0) K/uL RBC 3.94 L (4.50-5.90) M/uL Hgb 12.7 L (13.0-17.0) g/dL Hct 36.7 L (38.0-50.0) % MCV 93.1 (80.0-98.0) fL MCH 32.2 H (27.0-32.0) pg MCHC 34.6 (31.0-37.0) g/dL RDW Std Deviation 41.4 (28.0-62.0) fl RDW Coeff of Charles 12 (11.0-15.0) % Plt Count 171 (150-400) K/uL MPV 9.70 (7.40-12.00) fL Neut % (Auto) 38.6 L (48.0-80.0) % Lymph % (Auto) 50.0 H (16.0-40.0) % [place] % (Auto) 7.7 (0.0-15.0) % Eos % (Auto) 2.6 (0.0-7.0) % Baso % (Auto) 1.1 (0.0-1.5) % Neut # (Auto) 1.1 L (1.4-5.7) K/uL Lymph # (Auto) 1.4 (0.6-2.4) K/uL [place] # (Auto) 0.2 (0.0-0.8) K/uL Eos # (Auto) 0.1 (0.0-0.7) K/uL Baso # (Auto) 0.0 (0.0-0.1) K/uL Nucleated RBC % 0.0 /100WBC Nucleated RBCs # 0 K/uL Sodium 143 (136-148) mmol/L Potassium 3.0 L (3.5-5.1) mmol/L Chloride 107 (98-107) mmol/L Carbon Dioxide 28.4 (21.0-32.0) mmol/L BUN 5 L (7.0-18.0) mg/dL Creatinine 0.9 (0.8-1.3) mg/dL Est Cr Clr Drug Dosing 109.09 mL/min Estimated GFR (MDRD) > 60.0 ml/min Glucose 127 H (74-106) mg/dL POC Glucose 120 H (60-110) mg/dL Calcium 8.2 L (8.5-10.1) mg/dL Magnesium 1.8 (1.8-2.4) mg/dL 12/02/19 12/02/19 12/02/19 Range/Units 13:00 15:29 17:18 WBC (4.0-11.0) K/uL RBC (4.50-5.90) M/uL Hgb (13.0-17.0) g/dL Hct (38.0-50.0) % MCV (80.0-98.0) fL MCH (27.0-32.0) pg MCHC (31.0-37.0) g/dL RDW Std Deviation (28.0-62.0) fl RDW Coeff of Charles (11.0-15.0) % Plt Count (150-400) K/uL MPV (7.40-12.00) fL Neut % (Auto) (48.0-80.0) % Lymph % (Auto) (16.0-40.0) % [place] % (Auto) (0.0-15.0) % Eos % (Auto) (0.0-7.0) % Baso % (Auto) (0.0-1.5) % Neut # (Auto) (1.4-5.7) K/uL Lymph # (Auto) (0.6-2.4) K/uL [place] # (Auto) (0.0-0.8) K/uL Eos # (Auto) (0.0-0.7) K/uL Baso # (Auto) (0.0-0.1) K/uL Nucleated RBC % /100WBC Nucleated RBCs # K/uL Sodium (136-148) mmol/L Potassium (3.5-5.1) mmol/L Chloride (98-107) mmol/L Carbon Dioxide (21.0-32.0) mmol/L BUN (7.0-18.0) mg/dL Creatinine (0.8-1.3) mg/dL Est Cr Clr Drug Dosing mL/min Estimated GFR (MDRD) ml/min Glucose (74-106) mg/dL POC Glucose 268 H 264 H 318 H (60-110) mg/dL Calcium (8.5-10.1) mg/dL Magnesium (1.8-2.4) mg/dL SUSAN Results - Last 24 hrs: Microbiology 11/27/19 20:10 Aerobic Blood Culture - Preliminary Blood - Venous - Lab Draw NO GROWTH AFTER 4 DAYS Anaerobic Blood Culture - Preliminary NO GROWTH AFTER 4 DAYS 11/27/19 20:00 Aerobic Blood Culture - Preliminary Blood - Venous NO GROWTH AFTER 4 DAYS Anaerobic Blood Culture - Preliminary NO GROWTH AFTER 4 DAYS 11/27/19 15:00 Helicobacter pylori Antigen - Final Stool / Feces Med Orders - Current: Current Medications Albuterol/Ipratropium (Duoneb 3.0-0.5 Mg/3 Ml) 3 ml NEB Q4HRRT PRN PRN Reason: Shortness Of Breath/wheezing Amiodarone HCl (Cordarone) 200 mg PO BID [facility] Last Admin: 12/02/19 09:02 Dose: 200 mg Documented by: Aspirin (Aspirin) 81 mg PO DAILY [facility] Last Admin: 12/02/19 09:02 Dose: 81 mg Documented by: Atorvastatin Calcium (Lipitor) 10 mg PO DAILY [facility] Last Admin: 12/02/19 09:01 Dose: 10 mg Documented by: Clopidogrel Bisulfate (Plavix) 75 mg PO DAILY [facility] Last Admin: 12/02/19 09:02 Dose: 75 mg Documented by: Dextrose/Water (Dextrose 50% In Water) 25 ml IVPUSH ASDIRECTED PRN PRN Reason: Hypoglycemia Last Admin: 11/29/19 05:39 Dose: 25 ml Documented by: Duloxetine HCl (Cymbalta) 30 mg PO DAILY [facility] Last Admin: 12/02/19 09:02 Dose: 30 mg Documented by: Pantoprazole Sodium 40 mg/ (Sodium Chloride) 10 mls @ 300 mls/hr IV Q12H [facility] Last Admin: 12/02/19 13:12 Dose: 300 mls/hr Documented by: Sodium Chloride (Normal Saline) 500 mls @ 999 mls/hr IV .BOLUS [facility] Lactated Ringer's (Ringers, Lactated) 1,000 mls @ 100 mls/hr IV ASDIRECTED [facility] Last Admin: 12/02/19 09:11 Dose: 100 mls/hr Documented by: Potassium Chloride 40 meq/ (Premix) 100 mls @ 25 mls/hr IV ONETIME ONE Stop: 12/02/19 18:29 Last Admin: 12/02/19 14:58 Dose: 25 mls/hr Documented by: Insulin Aspart (Novolog) 0 unit SUBCUT TIDAC [facility]; Protocol Last Admin: 12/02/19 17:19 Dose: 8 units Documented by: Insulin Detemir (Levemir) 10 unit SUBCUT BEDTIME [facility] Last Admin: 12/01/19 21:41 Dose: 10 unit Documented by: Isosorbide Mononitrate (Imdur) 30 mg PO DAILY [facility] Last Admin: 12/02/19 09:01 Dose: 30 mg Documented by: Metoclopramide HCl (Reglan) 5 mg PO Q8H [facility] Last Admin: 12/02/19 15:41 Dose: 5 mg Documented by: Metoclopramide HCl (Reglan) 10 mg IM Q6H PRN PRN Reason: Nausea/Vomiting Metoprolol Tartrate (Lopressor) 25 mg PO BID [facility] Last Admin: 12/02/19 08:59 Dose: 25 mg Documented by: Morphine Sulfate (Morphine) 2 mg IVPUSH Q2H PRN PRN Reason: Pain Last Admin: 12/01/19 20:11 Dose: 2 mg Documented by: Oxycodone HCl (Oxycodone) 5 mg PO Q8H [facility] Last Admin: 12/02/19 17:15 Dose: 5 mg Documented by: Promethazine HCl (Phenergan) 25 mg IM Q6H PRN PRN Reason: Nausea Last Admin: 12/01/19 20:10 Dose: 25 mg Documented by: Ranolazine (Ranexa) 500 mg PO BID [facility] Last Admin: 12/02/19 09:01 Dose: 500 mg Documented by: Sodium Chloride (Saline Flush) 2.5 ml FLUSH ASDIRECTED PRN PRN Reason: Keep Vein Open Last Admin: 11/27/19 15:35 Dose: 2.5 ml Documented by: Sodium Chloride (Saline Flush) 2.5 ml FLUSH ASDIRECTED PRN PRN Reason: Keep Vein Open Last Admin: 11/27/19 15:35 Dose: 2.5 ml Documented by: Sucralfate (Carafate) 1 gm PO QID [facility] Last Admin: 12/02/19 17:15 Dose: 1 gm Documented by: Tamsulosin HCl (Flomax) 0.4 mg PO BEDTIME [facility] Last Admin: 12/02/19 00:32 Dose: 0.4 mg Documented by: Topiramate (Topamax) 25 mg PO BID [facility] Last Admin: 12/02/19 09:02 Dose: 25 mg Documented by: Discontinued Medications Amiodarone HCl (Cordarone) 200 mg PO ONETIME ONE Stop: 11/28/19 02:52 Last Admin: 11/28/19 03:00 Dose: 200 mg Documented by: Bisacodyl (Dulcolax) 10 mg RECTAL ONETIME ONE Stop: 11/30/19 09:58 Last Admin: 11/30/19 10:43 Dose: 10 mg Documented by: Bisacodyl (Dulcolax) 10 mg RECTAL ONETIME ONE Stop: 12/01/19 09:21 Last Admin: 12/01/19 10:22 Dose: 10 mg Documented by: Al Hydroxide/Mg Hydroxide 15 (ml/ Lidocaine HCl 5 ml) 0 ml PO ONETIME ONE Stop: 11/30/19 09:16 Last Admin: 11/30/19 09:39 Dose: 20 each Documented by: Diphenhydramine HCl (Benadryl) 25 mg IVPUSH ONETIME ONE Stop: 11/27/19 15:27 Last Admin: 11/27/19 15:32 Dose: 25 mg Documented by: Diphenhydramine HCl (Benadryl) 25 mg IVPUSH ONETIME ONE Stop: 11/30/19 19:10 Last Admin: 11/30/19 19:27 Dose: 25 mg Documented by: Famotidine (Pepcid) 20 mg IVPUSH ONETIME ONE Stop: 11/27/19 18:48 Last Admin: 11/27/19 18:54 Dose: 20 mg Documented by: Famotidine (Pepcid) Confirm Administered Dose 20 mg .ROUTE .STK-MED ONE Stop: 11/27/19 18:50 Last Admin: 11/27/19 19:01 Dose: Not Given Documented by: Haloperidol Lactate (Haldol) 1 mg IM ONETIME ONE Stop: 11/30/19 19:08 Last Admin: 11/30/19 19:25 Dose: 1 mg Documented by: Hydromorphone HCl (Dilaudid) 1 mg IVPUSH ONETIME ONE Stop: 11/30/19 08:36 Last Admin: 11/30/19 08:41 Dose: 1 mg Documented by: Sodium Chloride (Normal Saline) 500 mls @ 999 mls/hr IV .BOLUS [facility] Last Admin: 11/28/19 23:29 Dose: 999 mls/hr Documented by: Sodium Chloride (Normal Saline) 500 mls @ 999 mls/hr IV .BOLUS [facility] Last Admin: 11/27/19 17:01 Dose: 999 mls/hr Documented by: Lactated Ringer's (Ringers, Lactated) 1,000 mls @ 125 mls/hr IV ASDIRECTED [facility] Last Admin: 11/28/19 06:43 Dose: 125 mls/hr Documented by: Pantoprazole Sodium 40 mg/ (Sodium Chloride) 10 mls @ 300 mls/hr IV Q24H [facility] Piperacillin Sod/Tazobactam (Sod 3.375 gm/ Sodium Chloride) 50 mls @ 100 mls/hr IV Q8H [facility] Last Admin: 11/29/19 03:56 Dose: 100 mls/hr Documented by: Lactated Ringer's (Ringers, Lactated) 500 mls @ 999 mls/hr IV .BOLUS ONE Stop: 11/27/19 21:04 Last Admin: 11/27/19 21:10 Dose: 999 mls/hr Documented by: Sodium Chloride (Normal Saline) 1,000 mls @ 999 mls/hr IV .Bolus ONE Stop: 11/28/19 09:21 Last Admin: 11/28/19 10:05 Dose: Not Given Documented by: Lactated Ringer's (Ringers, Lactated) 1,000 mls @ 999 mls/hr IV .BOLUS ONE Stop: 11/28/19 09:32 Last Admin: 11/28/19 08:40 Dose: 999 mls/hr Documented by: Insulin Human Regular 100 unit (/ Sodium Chloride) 100 mls @ 6 mls/hr IV TITRATE [facility]; Protocol Last Titration: 11/28/19 15:04 Dose: 0 units/hr, 0 mls/hr Documented by: Lactated Ringer's (Ringers, Lactated) 1,000 mls @ 999 mls/hr IV .BOLUS ONE Stop: 11/28/19 10:36 Last Admin: 11/28/19 09:57 Dose: 999 mls/hr Documented by: Dextrose/Sodium Chloride (Dextrose 5%-1/2 Ns) 1,000 mls @ 150 mls/hr IV ASDIRECTED [facility] Last Admin: 11/28/19 14:29 Dose: 150 mls/hr Documented by: Potassium Chloride/Sodium Chloride (Normal Saline With 40 Meq Kcl) 1,000 mls @ 125 mls/hr IV Q8H [facility] Stop: 11/29/19 17:29 Last Admin: 11/29/19 10:15 Dose: 125 mls/hr Documented by: Potassium Chloride 40 meq/Magnesium Sulfate 2 gm/ Sodium Chloride 524 mls @ 131 mls/hr IV ONETIME ONE Stop: 11/30/19 12:04 Last Admin: 11/30/19 18:56 Dose: Not Given Documented by: Potassium Chloride 40 meq/Magnesium Sulfate 2 gm/ Sodium Chloride 524 mls @ 131 mls/hr IV ONETIME ONE Stop: 11/30/19 12:14 Last Admin: 11/30/19 09:39 Dose: 131 mls/hr Documented by: Magnesium Sulfate (Magnesium Sulfate In Water Premix) 2 gm in 50 mls @ 50 mls/hr IV ONETIME ONE Stop: 12/02/19 10:44 Last Admin: 12/02/19 13:17 Dose: Not Given Documented by: Magnesium Sulfate (Magnesium Sulfate In Water Premix) 2 gm in 50 mls @ 50 mls/hr IV ONETIME ONE Stop: 12/02/19 13:59 Last Admin: 12/02/19 13:07 Dose: 50 mls/hr Documented by: Insulin Aspart (Novolog) 15 unit SUBCUT ONETIME ONE Stop: 11/28/19 23:25 Last Admin: 11/28/19 23:39 Dose: Not Given Documented by: Insulin Aspart (Novolog) 15 unit SUBCUT ONETIME ONE Stop: 09/20/20 23:29 Last Admin: 11/28/19 23:30 Dose: 15 unit Documented by: Insulin Aspart (Novolog) 10 unit SUBCUT ONETIME ONE Stop: 11/29/19 00:20 Last Admin: 11/29/19 00:24 Dose: 10 unit Documented by: Insulin Aspart (Novolog) 5 unit SUBCUT TID [facility] Last Admin: 11/29/19 15:00 Dose: 5 units Documented by: Insulin Aspart (Novolog) 8 unit SUBCUT NOW STA Stop: 11/29/19 15:14 Last Admin: 11/29/19 15:17 Dose: 8 unit Documented by: Insulin Aspart (Novolog) 5 unit SUBCUT TIDMEALS [facility] Last Admin: 11/30/19 18:56 Dose: Not Given Documented by: Insulin Detemir (Levemir) 5 unit SUBCUT BEDTIME ONE Stop: 11/27/19 23:31 Last Admin: 11/27/19 23:58 Dose: 5 units Documented by: Lorazepam (Ativan) 1 mg IVPUSH ONETIME ONE Stop: 11/28/19 01:03 Last Admin: 11/28/19 01:34 Dose: 1 mg Documented by: Lorazepam (Ativan) 1 mg IVPUSH ONETIME ONE Stop: 11/30/19 19:10 Last Admin: 11/30/19 19:26 Dose: 1 mg Documented by: Metoclopramide HCl (Reglan) 10 mg IVPUSH ONETIME ONE Stop: 11/27/19 15:26 Last Admin: 11/27/19 15:30 Dose: 10 mg Documented by: Metoclopramide HCl (Reglan) 5 mg PO QIDACANDBED [facility] Last Admin: 11/30/19 18:57 Dose: Not Given Documented by: Metoclopramide HCl (Reglan) 5 mg IVPUSH Q6H [facility] Last Admin: 12/01/19 05:43 Dose: 5 mg Documented by: Metoclopramide HCl (Reglan) 10 mg IVPUSH Q6H [facility] Last Admin: 12/02/19 13:14 Dose: 10 mg Documented by: Metoprolol Tartrate (Lopressor) 50 mg PO BID [facility] Last Admin: 11/29/19 09:10 Dose: Not Given Documented by: Metoprolol Tartrate (Lopressor) 5 mg IVPUSH ONETIME ONE Stop: 11/28/19 02:28 Last Admin: 11/28/19 02:38 Dose: 5 mg Documented by: Metoprolol Tartrate (Lopressor) 50 mg PO ONETIME ONE Stop: 11/28/19 02:30 Last Admin: 11/28/19 02:40 Dose: 50 mg Documented by: Morphine Sulfate (Morphine) 1 mg IVPUSH Q2H PRN PRN Reason: Pain (severe 7-10) Stop: 11/28/19 19:30 Last Admin: 11/27/19 22:27 Dose: 1 mg Documented by: Morphine Sulfate (Morphine) 2 mg IVPUSH Q2H PRN PRN Reason: Pain (severe 7-10) Stop: 11/28/19 19:30 Last Admin: 11/28/19 08:45 Dose: 2 mg Documented by: Morphine Sulfate (Morphine) 4 mg IVPUSH ONETIME ONE Stop: 11/30/19 08:03 Last Admin: 11/30/19 08:12 Dose: 4 mg Documented by: Ondansetron HCl (Zofran) 4 mg IVPUSH ONETIME ONE Stop: 11/27/19 16:55 Last Admin: 11/27/19 17:02 Dose: 4 mg Documented by: Ondansetron HCl (Zofran) 4 mg IVPUSH Q4H PRN PRN Reason: Nausea/Vomiting Last Admin: 11/28/19 00:23 Dose: 4 mg Documented by: Potassium Chloride (Klor-Con 10) 40 meq PO ONETIME ONE Stop: 11/29/19 17:01 Last Admin: 11/29/19 17:13 Dose: 40 meq Documented by: Prochlorperazine Edisylate (Compazine) 5 mg IVPUSH ONETIME ONE Stop: 11/27/19 18:48 Last Admin: 11/27/19 18:52 Dose: 5 mg Documented by: Prochlorperazine Edisylate (Compazine) Confirm Administered Dose 10 mg .ROUTE .STK-MED ONE Stop: 11/27/19 18:50 Last Admin: 11/27/19 18:55 Dose: Not Given Documented by: Sodium Bicarbonate (Sodium Bicarbonate 8.4%) 50 meq IVPUSH ONETIME ONE Stop: 11/29/19 00:14 Last Admin: 11/29/19 00:28 Dose: 50 meq Documented by: Sodium Chloride (Saline Flush) 10 ml FLUSH ASDIRECTED PRN PRN Reason: Keep Vein Open Last Admin: 11/27/19 15:35 Dose: 10 ml Documented by: Sodium Phosphate (Neutra-Phos) 250 mg PO QID [facility] Last Admin: 12/01/19 05:47 Dose: Not Given Documented by:
== END 2019-12-02 20:45 | disposition home or self-care (01) | DRG 637 ==
LOC: MW.ED 15:16 → MW.MS 19:20 → MW.ICU 11-28 09:23 → OBSVTOIN 11-28 10:06 → MW.MS 11-29 09:34
PROVIDERS: ADMIT Student in an Organized Health Care Education/Training Program; ATTEND Student in an Organized Health Care Education/Training Program
DX: E10.10 Type 1 diabetes mellitus with ketoacidosis without coma (principal); R65.11 Systemic inflammatory response syndrome (SIRS) of non-infectious origin with acute organ dysfunction; R10.11 Right upper quadrant pain; N17.9 Acute kidney failure, unspecified; K92.0 Hematemesis; I13.0 Hypertensive heart and chronic kidney disease with heart failure and stage 1 through stage 4 chronic kidney disease, or unspecified chronic kidney disease; I42.9 Cardiomyopathy, unspecified; R65.10 Systemic inflammatory response syndrome (SIRS) of non-infectious origin without acute organ dysfunction; E10.43 Type 1 diabetes mellitus with diabetic autonomic (poly)neuropathy; K31.84 Gastroparesis; E86.0 Dehydration; Z20.828 Contact with and (suspected) exposure to other viral communicable diseases; R91.8 Other nonspecific abnormal finding of lung field; E10.65 Type 1 diabetes mellitus with hyperglycemia; I25.10 Atherosclerotic heart disease of native coronary artery without angina pectoris; E10.40 Type 1 diabetes mellitus with diabetic neuropathy, unspecified; E78.00 Pure hypercholesterolemia, unspecified; I50.9 Heart failure, unspecified; M54.9 Dorsalgia, unspecified; G89.29 Other chronic pain; F41.9 Anxiety disorder, unspecified; F32.9 Major depressive disorder, single episode, unspecified; N18.9 Chronic kidney disease, unspecified; E10.22 Type 1 diabetes mellitus with diabetic chronic kidney disease; I95.1 Orthostatic hypotension; K59.00 Constipation, unspecified; R10.31 Right lower quadrant pain; R33.9 Retention of urine, unspecified; Z90.49 Acquired absence of other specified parts of digestive tract; Z95.5 Presence of coronary angioplasty implant and graft; Z86.79 Personal history of other diseases of the circulatory system; Z79.899 Other long term (current) drug therapy; I25.2 Old myocardial infarction; Z79.01 Long term (current) use of anticoagulants; Z79.82 Long term (current) use of aspirin; Z79.4 Long term (current) use of insulin; Z95.1 Presence of aortocoronary bypass graft; Z95.810 Presence of automatic (implantable) cardiac defibrillator
CPT/HCPCS: 36415 ×2; 51701 ×2; 51702; 51798; 71045; 74176; 80048; 80053; 81001; 82962 ×5; 83036; 83605 ×2; 83690; 83735; 84100; 84484 ×3; 85025 ×2; 85610; 87040 ×2; 87338; 93005; 96361 ×2; 96365; 96375 ×4; 96376; 99285; A9270 ×6; C9113; G0378 ×3; J0780; J1200; J1815 ×3; J2060; J2270 ×3; J2405 ×2; J2543 ×2; J2765; J3490 ×2; J7040 ×2; J7050 ×4; J7120 ×5; U0002; 78264; 78264-26; 82803; 96366; 96374; 97161-GP; 99219; 99231; 99232; 99238; 99284; A9541; J1170; J1630; J2550; J3475; J3480; J7042

== ENCOUNTER 2019-12-11 10:52 | Observation (INO) | payer MEDICARE, MEDICAID, OTHER ==
--- NOTE | 2019-12-11 11:43 | EDM.PDOC ---
ED HPI GENERAL MEDICAL PROBLEM - General Chief Complaint: Gastrointestinal Problem Stated Complaint: VOMITING Time Seen by Provider: 12/11/19 11:00 Source of Information: Reports: Patient History Limitations: Reports: No Limitations - History of Present Illness INITIAL COMMENTS - FREE TEXT/NARRATIVE: 53M PMHx CAD w/ stents, h/o cabg, PPM, IDDM1, gastroparesis presents with N/V and abdominal pain x2-days. "feels just like the last time I was here for this". Denies fevers, cough, SOB. Vomiting TNTC. No blood in vomit. Has been compliant with insulin but not his PO meds 2/2 N/V. abdomen Pain Score (Numeric/FACES): 9 - Related Data Allergies Allergy/AdvReac Type Severity Reaction Status Date / Time No Known Allergies Allergy Verified 12/11/19 11:30 Home Meds: Home Meds Insulin Aspart [NovoLOG] See Protocol SUBCUT TIDMEALS #0 12/25/16 [Rx] Metoprolol Tartrate 50 mg PO BID 01/05/19 [History] Topiramate 25 mg PO BID 01/05/19 [History] atorvaSTATin [Lipitor] 10 mg PO DAILY 01/05/19 [History] Insulin Lispro [Humalog Kwikpen U-100] 1 unit SQ ASDIRECTED 06/11/19 [History] Losartan [Cozaar] 50 mg PO DAILY 06/11/19 [History] Apixaban [Eliquis] 5 mg PO BID 11/02/19 [History] DULoxetine [Cymbalta] 30 mg PO DAILY 11/02/19 [History] Ranolazine [Ranolazine ER] 500 mg PO BID 11/02/19 [History] GI Cocktail 20 ml PO Q6H PRN #1 bot 11/03/19 [Rx] Pantoprazole Sodium [Protonix] 40 mg PO BID #60 tablet. 11/03/19 [Rx] Amiodarone [Cordarone] 200 mg PO BID 11/27/19 [History] Aspirin 81 mg PO DAILY 11/27/19 [History] Clopidogrel [Plavix] 75 mg PO DAILY 11/27/19 [History] Isosorbide Mononitrate [Isosorbide Mononitrate ER] 30 mg PO DAILY 11/27/19 [History] Potassium Chloride 10 meq PO BID 11/27/19 [History] Sucralfate [Carafate] 1 gm PO QID 11/27/19 [History] Acetaminophen [Mapap] 500 mg PO BID PRN #60 tablet 12/02/19 [Rx] Metoclopramide [Reglan] 5 mg PO Q8H 1 Days #60 tablet 12/02/19 [Rx] Pantoprazole [ProTONIX] 40 mg PO DAILY #30 tab.cr 12/02/19 [Rx] Tamsulosin [Flomax] 0.4 mg PO BEDTIME #30 cap.er 12/02/19 [Rx] Metoclopramide [Reglan] 5 mg PO Q6H PRN #12 tab 12/11/19 [Rx] Past Medical History - Past Health History Medical/Surgical History: Denies Medical/Surgical History HEENT History: Reports: None Cardiovascular History: Reports: CAD, Heart Failure, High Cholesterol, Hypertension, [place], Pacemaker Other Cardiovascular History: Valve Problem Respiratory History: Reports: Other (See Below) Other Respiratory History: recently diagnosed with nodules in lungs Gastrointestinal History: Reports: None Genitourinary History: Reports: Chronic Renal Insuffiency Musculoskeletal History: Reports: Back Pain, Chronic Neurological History: Reports: Neuropathy, Diabetic, Other (See Below) Other Neuro History: Intracranial hypertension Psychiatric History: Reports: Anxiety, Depression Endocrine/Metabolic History: Reports: Diabetes, Type I 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 Hematologic History: Reports: None Immunologic History: Reports: None Oncologic (Cancer) History: Reports: None Dermatologic History: Reports: None - Infectious Disease History Infectious Disease History: Reports: None - Past Surgical History Head Surgeries/Procedures: Reports: None HEENT Surgical History: Reports: Oral Surgery Cardiovascular Surgical History: Reports: AICD, Coronary Artery Stent, Other (See Below) Respiratory Surgical History: Reports: None GI Surgical History: Reports: Cholecystectomy Male Surgical History: Reports: None Endocrine Surgical History: Reports: None Neurological Surgical History: Reports: None Musculoskeletal Surgical History: Reports: None Oncologic Surgical History: Reports: None Dermatological Surgical History: Reports: None Social & Family History - Family History Family Medical History: Noncontributory - Tobacco Use Smoking Status *Q: Never Smoker - Caffeine Use Caffeine Use: Reports: None - Recreational Drug Use Recreational Drug Use: No - Living Situation & Occupation Living situation: Reports: , with Spouse, with Family (2 kids) Occupation: Unemployed ED ROS GENERAL - Review of Systems Review Of Systems: See Below ED EXAM, GENERAL - Physical Exam Exam: See Below Exam Limited By: No Limitations General Appearance: Alert, WD/WN, Other (appears to be in pain, holding abdomen and uncomfortable) Ears: Normal External Exam Nose: Normal Inspection Throat/Mouth: Normal Inspection, Normal Voice, No Airway Compromise Head: Atraumatic, Normocephalic Neck: Normal Inspection Respiratory/Chest: No Respiratory Distress, Lungs Clear, Normal Breath Sounds, No Accessory Muscle Use Cardiovascular: Normal Peripheral Pulses, Tachycardia GI/Abdominal: Soft, Non-Tender, No Distention Extremities: Normal Inspection Neurological: Alert Psychiatric: Normal Affect, Normal Mood Skin Exam: Warm, Dry, Intact, Normal Color EKG INTERPRETATION EKG Date: 12/11/19 Time: 12:54 Rhythm: Other (atrial senseed ventricular paced complexes) Machias: Normal P-Wave: Present QRS: Normal ST-T: Normal QT: Normal RI/PQ Interval: 122 Course - Vital Signs Last Recorded V/S: Last Vital Signs Temp 96.6 F L 12/11/19 14:33 Pulse 100 12/11/19 14:33 Resp 17 12/11/19 14:33 BP 119/79 12/11/19 14:33 Pulse Ox 95 12/11/19 14:33 - Orders/Labs/Meds Orders: Active Orders 24 hr Category Date Time Status Blood Glucose Check, Bedside [RC] ONETIME Care 12/11/19 11:46 Active EKG Documentation Completion [RC] STAT Care 12/11/19 11:46 Active UA W/SUSAN RFLX IF INDICATED [URIN] Stat Lab 12/11/19 11:47 Ordered Sodium Chloride 0.9% [Normal Saline] 1,000 ml Med 12/11/19 15:12 Active IV .Bolus Sodium Chloride 0.9% [Saline Flush] Med 12/11/19 11:46 Active 10 ml FLUSH ASDIRECTED PRN Sodium Chloride 0.9% [Saline Flush] Med 12/11/19 11:46 Active 2.5 ml FLUSH ASDIRECTED PRN Saline Lock Insert [OM.PC] Stat Oth 12/11/19 11:46 Ordered Medication Orders Sodium Chloride (Normal Saline) 1,000 mls @ 999 mls/hr IV .Bolus ONE Stop: 12/11/19 16:12 Last Admin: 12/11/19 15:19 Dose: 999 mls/hr Documented by: EARL Sodium Chloride (Saline Flush) 10 ml FLUSH ASDIRECTED PRN PRN Reason: Keep Vein Open Last Admin: 12/11/19 13:38 Dose: 10 ml Documented by: ALBERTO Sodium Chloride (Saline Flush) 2.5 ml FLUSH ASDIRECTED PRN PRN Reason: Keep Vein Open Last Admin: 12/11/19 13:38 Dose: 2.5 ml Documented by: ALBERTO Labs: Laboratory Tests 12/11/19 12/11/19 12/11/19 Range/Units 11:57 12:09 12:09 WBC 10.74 (4.0-11.0) K/uL RBC 5.20 (4.50-5.90) M/uL Hgb 17.3 H (13.0-17.0) g/dL Hct 48.3 (38.0-50.0) % MCV 92.9 (80.0-98.0) fL MCH 33.3 H (27.0-32.0) pg MCHC 35.8 (31.0-37.0) g/dL RDW Std Deviation 46.6 (28.0-62.0) fl RDW Coeff of Charles 14 (11.0-15.0) % Plt Count 335 (150-400) K/uL MPV 9.50 (7.40-12.00) fL Neut % (Auto) 84.8 H (48.0-80.0) % Lymph % (Auto) 9.3 L (16.0-40.0) % Dixie % (Auto) 5.7 (0.0-15.0) % Eos % (Auto) 0.0 (0.0-7.0) % Baso % (Auto) 0.2 (0.0-1.5) % Neut # (Auto) 9.1 H (1.4-5.7) K/uL Lymph # (Auto) 1.0 (0.6-2.4) K/uL Dixie # (Auto) 0.6 (0.0-0.8) K/uL Eos # (Auto) 0.0 (0.0-0.7) K/uL Baso # (Auto) 0.0 (0.0-0.1) K/uL Nucleated RBC % 0.0 /100WBC Nucleated RBCs # 0 K/uL VBG pH (7.31-7.41) VBG pCO2 (35-45) mmHG VBG pO2 (30-40) mmHG VBG HCO3 (22-30) mEq/L VBG Total CO2 (41-51) mmol/L VBG Base Excess (-3.0-3.0) Lactate 3.9 H* (0.20-2.00) mmol/L Sodium (136-148) mmol/L Potassium (3.5-5.1) mmol/L Chloride (98-107) mmol/L Carbon Dioxide (21.0-32.0) mmol/L BUN (7.0-18.0) mg/dL Creatinine (0.8-1.3) mg/dL Est Cr Clr Drug Dosing mL/min Estimated GFR (MDRD) ml/min Glucose (74-106) mg/dL POC Glucose 173 H (60-110) mg/dL Calcium (8.5-10.1) mg/dL Magnesium (1.8-2.4) mg/dL Total Bilirubin (0.2-1.0) mg/dL AST (15-37) IU/L ALT (14-63) IU/L Alkaline Phosphatase (46-116) U/L Troponin I (0.000-0.056) ng/mL Total Protein (6.4-8.2) g/dL Albumin (3.4-5.0) g/dL Globulin (2.6-4.0) g/dL Albumin/Globulin Ratio (0.9-1.6) Lipase (73-393) U/L Ketones (NEG) 12/11/19 12/11/19 12/11/19 Range/Units 12:09 12:09 12:09 WBC (4.0-11.0) K/uL RBC (4.50-5.90) M/uL Hgb (13.0-17.0) g/dL Hct (38.0-50.0) % MCV (80.0-98.0) fL MCH (27.0-32.0) pg MCHC (31.0-37.0) g/dL RDW Std Deviation (28.0-62.0) fl RDW Coeff of Charles (11.0-15.0) % Plt Count (150-400) K/uL MPV (7.40-12.00) fL Neut % (Auto) (48.0-80.0) % Lymph % (Auto) (16.0-40.0) % Dixie % (Auto) (0.0-15.0) % Eos % (Auto) (0.0-7.0) % Baso % (Auto) (0.0-1.5) % Neut # (Auto) (1.4-5.7) K/uL Lymph # (Auto) (0.6-2.4) K/uL Dixie # (Auto) (0.0-0.8) K/uL Eos # (Auto) (0.0-0.7) K/uL Baso # (Auto) (0.0-0.1) K/uL Nucleated RBC % /100WBC Nucleated RBCs # K/uL VBG pH 7.39 (7.31-7.41) VBG pCO2 34 L (35-45) mmHG VBG pO2 60 H (30-40) mmHG VBG HCO3 20 L (22-30) mEq/L VBG Total CO2 17 L (41-51) mmol/L VBG Base Excess -3.6 L (-3.0-3.0) Lactate (0.20-2.00) mmol/L Sodium 140 (136-148) mmol/L Potassium 3.5 (3.5-5.1) mmol/L Chloride 101 (98-107) mmol/L Carbon Dioxide 20.3 L (21.0-32.0) mmol/L BUN 26 H (7.0-18.0) mg/dL Creatinine 1.6 H (0.8-1.3) mg/dL Est Cr Clr Drug Dosing 60.95 mL/min Estimated GFR (MDRD) 45.3 ml/min Glucose 204 H (74-106) mg/dL POC Glucose (60-110) mg/dL Calcium 9.6 (8.5-10.1) mg/dL Magnesium 2.3 (1.8-2.4) mg/dL Total Bilirubin 1.2 H (0.2-1.0) mg/dL AST 29 (15-37) IU/L ALT 52 (14-63) IU/L Alkaline Phosphatase 107 (46-116) U/L Troponin I < 0.050 (0.000-0.056) ng/mL Total Protein 8.4 H (6.4-8.2) g/dL Albumin 5.0 (3.4-5.0) g/dL Globulin 3.4 (2.6-4.0) g/dL Albumin/Globulin Ratio 1.5 (0.9-1.6) Lipase 46 L (73-393) U/L Ketones SMALL H (NEG) 12/11/19 Range/Units 14:56 WBC (4.0-11.0) K/uL RBC (4.50-5.90) M/uL Hgb (13.0-17.0) g/dL Hct (38.0-50.0) % MCV (80.0-98.0) fL MCH (27.0-32.0) pg MCHC (31.0-37.0) g/dL RDW Std Deviation (28.0-62.0) fl RDW Coeff of Charles (11.0-15.0) % Plt Count (150-400) K/uL MPV (7.40-12.00) fL Neut % (Auto) (48.0-80.0) % Lymph % (Auto) (16.0-40.0) % Dixie % (Auto) (0.0-15.0) % Eos % (Auto) (0.0-7.0) % Baso % (Auto) (0.0-1.5) % Neut # (Auto) (1.4-5.7) K/uL Lymph # (Auto) (0.6-2.4) K/uL Dixie # (Auto) (0.0-0.8) K/uL Eos # (Auto) (0.0-0.7) K/uL Baso # (Auto) (0.0-0.1) K/uL Nucleated RBC % /100WBC Nucleated RBCs # K/uL VBG pH (7.31-7.41) VBG pCO2 (35-45) mmHG VBG pO2 (30-40) mmHG VBG HCO3 (22-30) mEq/L VBG Total CO2 (41-51) mmol/L VBG Base Excess (-3.0-3.0) Lactate 2.6 H* (0.20-2.00) mmol/L Sodium (136-148) mmol/L Potassium (3.5-5.1) mmol/L Chloride (98-107) mmol/L Carbon Dioxide (21.0-32.0) mmol/L BUN (7.0-18.0) mg/dL Creatinine (0.8-1.3) mg/dL Est Cr Clr Drug Dosing mL/min Estimated GFR (MDRD) ml/min Glucose (74-106) mg/dL POC Glucose (60-110) mg/dL Calcium (8.5-10.1) mg/dL Magnesium (1.8-2.4) mg/dL Total Bilirubin (0.2-1.0) mg/dL AST (15-37) IU/L ALT (14-63) IU/L Alkaline Phosphatase (46-116) U/L Troponin I (0.000-0.056) ng/mL Total Protein (6.4-8.2) g/dL Albumin (3.4-5.0) g/dL Globulin (2.6-4.0) g/dL Albumin/Globulin Ratio (0.9-1.6) Lipase (73-393) U/L Ketones (NEG) Meds: Medications Generic Name Dose Route Start Last Admin Trade Name Freq PRN Reason Stop Dose Admin Sodium Chloride 1,000 mls @ 999 mls/hr 12/11/19 15:12 12/11/19 15:19 Normal Saline IV 12/11/19 16:12 999 mls/hr .Bolus ONE Administration Sodium Chloride 10 ml 12/11/19 11:46 12/11/19 13:38 Saline Flush FLUSH 10 ml ASDIRECTED PRN Administration Keep Vein Open Sodium Chloride 2.5 ml 12/11/19 11:46 12/11/19 13:38 Saline Flush FLUSH 2.5 ml ASDIRECTED PRN Administration Keep Vein Open Discontinued Medications Generic Name Dose Route Start Last Admin Trade Name Freq PRN Reason Stop Dose Admin Haloperidol Lactate 5 mg 12/11/19 11:49 12/11/19 12:45 Haldol IM 12/11/19 11:50 5 mg ONETIME ONE Administration Lactated Ringer's 1,000 mls @ 999 mls/hr 12/11/19 11:46 12/11/19 12:45 Ringers, Lactated IV 12/11/19 12:46 999 mls/hr .BOLUS ONE Administration Pantoprazole Sodium 40 mg/ 10 mls @ 300 mls/hr 12/11/19 11:46 12/11/19 12:45 Sodium Chloride IV 12/11/19 11:47 300 mls/hr NOW ONE Administration Sodium Chloride 1,000 mls @ 999 mls/hr 12/11/19 12:50 12/11/19 13:36 Normal Saline IV 12/11/19 13:50 999 mls/hr .Bolus ONE Administration Ondansetron HCl 4 mg 12/11/19 15:16 12/11/19 15:19 Zofran IVPUSH 12/11/19 15:17 4 mg ONETIME ONE Administration - Re-Assessments/Exams Free Text/Narrative Re-Assessment/Exam: 12/11/19 16:03 Patient is feeling much better. HR improved to 102. Lactate downtrending. 3-L IVFB given. Will d/c with short coruse reglan. Return precuations discsused. Patient offered admission but states he'd prefer to manage things at home if possible. I think this is a reasonable plan. Departure - Departure Time of Disposition: 16:03 Disposition: Home, Self-Care 01 Condition: Good Clinical Impression: Gastroparesis - Discharge Information Prescriptions: Metoclopramide [Reglan] 5 mg PO Q6H PRN #12 tab PRN Reason: Nausea/Vomiting Referrals: PCP,None [Primary Care Provider] - Forms: ED Department Discharge Additional Instructions: The following information is given to patients seen in the emergency department who are being discharged to home. This information is to outline your options for follow-up care. We provide all patients seen in our emergency department with a follow-up referral. The need for follow-up, as well as the timing and circumstances, are variable depending upon the specifics of your emergency department visit. If you don't have a primary care physician on staff, we will provide you with a referral. We always advise you to contact your personal physician following an emergency department visit to inform them of the circumstance of the visit and for follow-up with them and/or the need for any referrals to a consulting s pecialist. The emergency department will also refer you to a specialist when appropriate. This referral assures that you have the opportunity for follow-up care with a specialist. All of these measure are taken in an effort to provide you with optimal care, which includes your follow-up. Under all circumstances we always encourage you to contact your private physician who remains a resource for coordinating your care. When calling for follow-up care, please make the office aware that this follow-up is from your recent emergency room visit. If for any reason you are refused follow-up, please contact the [facility] at and asked to speak to the emergency department charge nurse. Please follow up with your primary care physician. If you do not have a primary care physician, see below: [facility] [address] [place] [id number] [facility] [address] [place] [id number] Sepsis Event Note (ED) - Evaluation Sepsis Screening Result: No Definite Risk - Focused Exam Vital Signs: Vital Signs Temp Pulse Resp BP Pulse Ox 12/11/19 14:33 96.6 F L 100 17 119/79 95 12/11/19 13:30 109 H 18 108/72 94 L 12/11/19 11:31 96.6 F L 126 H 18 131/91 H 95 - My Orders Last 24 Hours: My Active Orders 12/11/19 11:46 Blood Glucose Check, Bedside [RC] ONETIME EKG Documentation Completion [RC] STAT Sodium Chloride 0.9% [Saline Flush] 10 ml FLUSH ASDIRECTED PRN Sodium Chloride 0.9% [Saline Flush] 2.5 ml FLUSH ASDIRECTED PRN Saline Lock Insert [OM.PC] Stat 12/11/19 11:47 UA W/SUSAN RFLX IF INDICATED [URIN] Stat 12/11/19 15:12 Sodium Chloride 0.9% [Normal Saline] 1,000 ml IV .Bolus - Assessment/Plan Last 24 Hours: My Active Orders 12/11/19 11:46 Blood Glucose Check, Bedside [RC] ONETIME EKG Documentation Completion [RC] STAT Sodium Chloride 0.9% [Saline Flush] 10 ml FLUSH ASDIRECTED PRN Sodium Chloride 0.9% [Saline Flush] 2.5 ml FLUSH ASDIRECTED PRN Saline Lock Insert [OM.PC] Stat 12/11/19 11:47 UA W/SUSAN RFLX IF INDICATED [URIN] Stat 12/11/19 15:12 Sodium Chloride 0.9% [Normal Saline] 1,000 ml IV .Bolus
[2019-12-11] MEDS ORDERED: Sodium Chloride 0.9% 10 ML Syringe FLUSH PRN (11:46)
[2019-12-11] MEDS ORDERED: Lactated Ringers 1,000 ML IV ONE (11:46)
[2019-12-11] MEDS ORDERED: Pantoprazole 40 MG in Sodium Chloride 0.9% 10 ML IV ONE (11:46)
[2019-12-11] MEDS ORDERED: Haloperidol Lactate 5 MG/ML SDV IM ONE (11:49)
[2019-12-11] MEDS ORDERED: Sodium Chloride 0.9% 1,000 ML IV ONE ×2 (12:50→15:12)
[2019-12-11 13:06] LABS: BLOOD UREA NITROGEN,BUN 26 mg/dL (7.0-18.0); CARBON DIOXIDE,CO2 20.3 mmol/L (21.0-32.0); CHLORIDE,CL 101 mmol/L (98-107); GLUCOSE RANDOM 204 mg/dL (74-106); LIPASE 46 U/L (73-393); POTASSIUM,K 3.5 mmol/L (3.5-5.1); SODIUM,NA 140 mmol/L (136-148)
[2019-12-11] MEDS: Sodium Chloride 0.9% 2.5 ML Syringe FLUSH PRN (13:38)
[2019-12-11] MEDS ORDERED: Ondansetron 4 MG/2 ML SDV IVPUSH ONE (15:16)
[2019-12-11] MEDS ORDERED: Metoclopramide 10 MG/2 ML SDV IVPUSH ONE (16:22)
[2019-12-11] MEDS ORDERED: Albuterol/Ipratropium 3.0-0.5 MG/3 ML Neb Soln NEB PRN (18:05)
[2019-12-11] MEDS ORDERED: Morphine 10 MG/ML Syringe IVPUSH PRN (18:05)
--- NOTE | 2019-12-11 18:10 | PCM.HP.2 ---
H&P History of Present Illness - General Date of Service: 12/11/19 Admit Problem/Dx: Admission Diagnosis/Problem Admission Diagnosis/Problem Gastroparesis - History of Present Illness Initial Comments - Free Text/Narative: 53M PMHx CAD w/ stents, h/o cabg, PPM, IDDM1, gastroparesis presents with c/o N/V and abdominal pain x2-days. Patient states that his symptoms are similar to his last stay in hospital. Denies fevers, cough, SOB. Vomiting TNTC. No blood in vomit. Has been compliant with insulin for DM but hasn't not been able to keep anything oral down. In the ER he was found to have elevated lactate at 3.9, LATOYA, he receive aggressive IV hydration, his symptoms improved initially after IV antiemetics and Haldol but later he had another episode of vomiting hence was admitted for further management. abdomen Pain Score (Numeric/FACES): 9 - Related Data Allergies/Adverse Reactions: Allergies Allergy/AdvReac Type Severity Reaction Status Date / Time No Known Allergies Allergy Verified 12/11/19 11:30 Home Medications: Home Meds Insulin Aspart [NovoLOG] See Protocol SUBCUT TIDMEALS #0 12/25/16 [Rx] Metoprolol Tartrate 50 mg PO BID 01/05/19 [History] Topiramate 25 mg PO BID 01/05/19 [History] atorvaSTATin [Lipitor] 10 mg PO DAILY 01/05/19 [History] Insulin Lispro [Humalog Kwikpen U-100] 1 unit SQ ASDIRECTED 06/11/19 [History] Losartan [Cozaar] 50 mg PO DAILY 06/11/19 [History] Apixaban [Eliquis] 5 mg PO BID 11/02/19 [History] DULoxetine [Cymbalta] 30 mg PO DAILY 11/02/19 [History] Ranolazine [Ranolazine ER] 500 mg PO BID 11/02/19 [History] GI Cocktail 20 ml PO Q6H PRN #1 bot 11/03/19 [Rx] Pantoprazole Sodium [Protonix] 40 mg PO BID #60 tablet. 11/03/19 [Rx] Amiodarone [Cordarone] 200 mg PO BID 11/27/19 [History] Aspirin 81 mg PO DAILY 11/27/19 [History] Clopidogrel [Plavix] 75 mg PO DAILY 11/27/19 [History] Isosorbide Mononitrate [Isosorbide Mononitrate ER] 30 mg PO DAILY 11/27/19 [History] Potassium Chloride 10 meq PO BID 11/27/19 [History] Sucralfate [Carafate] 1 gm PO QID 11/27/19 [History] Acetaminophen [Mapap] 500 mg PO BID PRN #60 tablet 12/02/19 [Rx] Metoclopramide [Reglan] 5 mg PO Q8H 1 Days #60 tablet 12/02/19 [Rx] Pantoprazole [ProTONIX] 40 mg PO DAILY #30 tab.cr 12/02/19 [Rx] Tamsulosin [Flomax] 0.4 mg PO BEDTIME #30 cap.er 12/02/19 [Rx] Metoclopramide [Reglan] 5 mg PO Q6H PRN #12 tab 12/11/19 [Rx] Past Medical History - Past Health History Medical/Surgical History: Denies Medical/Surgical History HEENT History: Reports: None Cardiovascular History: Reports: CAD, Heart Failure, High Cholesterol, Hypertension, NE, Pacemaker Other Cardiovascular History: Valve Problem Respiratory History: Reports: Other (See Below) Other Respiratory History: recently diagnosed with nodules in lungs Gastrointestinal History: Reports: None Genitourinary History: Reports: Chronic Renal Insuffiency Musculoskeletal History: Reports: Back Pain, Chronic Neurological History: Reports: Neuropathy, Diabetic, Other (See Below) Other Neuro History: Intracranial hypertension Psychiatric History: Reports: Anxiety, Depression Endocrine/Metabolic History: Reports: Diabetes, Type I 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 Hematologic History: Reports: None Immunologic History: Reports: None Oncologic (Cancer) History: Reports: None Dermatologic History: Reports: None - Infectious Disease History Infectious Disease History: Reports: None - Past Surgical History Head Surgeries/Procedures: Reports: None HEENT Surgical History: Reports: Oral Surgery Cardiovascular Surgical History: Reports: AICD, Coronary Artery Stent, Other (See Below) Respiratory Surgical History: Reports: None GI Surgical History: Reports: Cholecystectomy Male Surgical History: Reports: None Endocrine Surgical History: Reports: None Neurological Surgical History: Reports: None Musculoskeletal Surgical History: Reports: None Oncologic Surgical History: Reports: None Dermatological Surgical History: Reports: None Social & Family History - Family History Family Medical History: Noncontributory - Tobacco Use Smoking Status *Q: Never Smoker - Caffeine Use Caffeine Use: Reports: None - Recreational Drug Use Recreational Drug Use: No - Living Situation & Occupation Living situation: Reports: , with Spouse, with Family (2 kids) Occupation: Unemployed H&P Review of Systems - Review of Systems: Review Of Systems: See Below General: Reports: Fatigue. Denies: Fever, Chills, Malaise, Weakness HEENT: Denies: Dysphasia, Ear Pain Pulmonary: Denies: Shortness of Breath, Wheezing, Pleuritic Chest Pain Cardiovascular: Denies: Chest Pain, Palpitations, Dyspnea on Exertion Gastrointestinal: Reports: Abdominal Pain, Anorexia, Nausea, Vomiting. Denies: Black Stool, Bloody Stool, Hematochezia, Mucous in Stool Genitourinary: Denies: Dysuria, Frequency, Burning Musculoskeletal: Denies: Neck Pain, Shoulder Pain, Arm Pain Skin: Denies: Cyanosis, Jaundice, Mottled Exam - Exam Exam: See Below - Vital Signs Vital Signs: Last Vital Signs Temp 35.9 C L 12/11/19 14:33 Pulse 113 H 12/11/19 16:53 Resp 16 12/11/19 16:53 BP 145/86 H 12/11/19 16:53 Pulse Ox 97 12/11/19 16:53 Weight: 81.647 kg - Exam General: Alert, Oriented Neck: Supple, Trachea Midline Lungs: Clear to Auscultation, Normal Respiratory Effort Cardiovascular: Regular Rhythm, Normal S1, Normal S2, Tachycardia GI/Abdominal Exam: Soft, No Distention, Guarding, Rigid, Tender. No: Hepatomegaly - Patient Data Lab Results Last 24 hrs: Laboratory Results - last 24 hr 12/11/19 12/11/19 12/11/19 Range/Units 11:57 12:09 12:09 WBC 10.74 (4.0-11.0) K/uL RBC 5.20 (4.50-5.90) M/uL Hgb 17.3 H (13.0-17.0) g/dL Hct 48.3 (38.0-50.0) % MCV 92.9 (80.0-98.0) fL MCH 33.3 H (27.0-32.0) pg MCHC 35.8 (31.0-37.0) g/dL RDW Std Deviation 46.6 (28.0-62.0) fl RDW Coeff of Charles 14 (11.0-15.0) % Plt Count 335 (150-400) K/uL MPV 9.50 (7.40-12.00) fL Neut % (Auto) 84.8 H (48.0-80.0) % Lymph % (Auto) 9.3 L (16.0-40.0) % Shannon % (Auto) 5.7 (0.0-15.0) % Eos % (Auto) 0.0 (0.0-7.0) % Baso % (Auto) 0.2 (0.0-1.5) % Neut # (Auto) 9.1 H (1.4-5.7) K/uL Lymph # (Auto) 1.0 (0.6-2.4) K/uL Shannon # (Auto) 0.6 (0.0-0.8) K/uL Eos # (Auto) 0.0 (0.0-0.7) K/uL Baso # (Auto) 0.0 (0.0-0.1) K/uL Nucleated RBC % 0.0 /100WBC Nucleated RBCs # 0 K/uL VBG pH (7.31-7.41) VBG pCO2 (35-45) mmHG VBG pO2 (30-40) mmHG VBG HCO3 (22-30) mEq/L VBG Total CO2 (41-51) mmol/L VBG Base Excess (-3.0-3.0) Lactate 3.9 H* (0.20-2.00) mmol/L Sodium (136-148) mmol/L Potassium (3.5-5.1) mmol/L Chloride (98-107) mmol/L Carbon Dioxide (21.0-32.0) mmol/L BUN (7.0-18.0) mg/dL Creatinine (0.8-1.3) mg/dL Est Cr Clr Drug Dosing mL/min Estimated GFR (MDRD) ml/min Glucose (74-106) mg/dL POC Glucose 173 H (60-110) mg/dL Calcium (8.5-10.1) mg/dL Magnesium (1.8-2.4) mg/dL Total Bilirubin (0.2-1.0) mg/dL AST (15-37) IU/L ALT (14-63) IU/L Alkaline Phosphatase (46-116) U/L Troponin I (0.000-0.056) ng/mL Total Protein (6.4-8.2) g/dL Albumin (3.4-5.0) g/dL Globulin (2.6-4.0) g/dL Albumin/Globulin Ratio (0.9-1.6) Lipase (73-393) U/L Ketones (NEG) SARS-CoV-2 RNA (ABBIE) (NEGATIVE) 12/11/19 12/11/19 12/11/19 Range/Units 12:09 12:09 12:09 WBC (4.0-11.0) K/uL RBC (4.50-5.90) M/uL Hgb (13.0-17.0) g/dL Hct (38.0-50.0) % MCV (80.0-98.0) fL MCH (27.0-32.0) pg MCHC (31.0-37.0) g/dL RDW Std Deviation (28.0-62.0) fl RDW Coeff of Charles (11.0-15.0) % Plt Count (150-400) K/uL MPV (7.40-12.00) fL Neut % (Auto) (48.0-80.0) % Lymph % (Auto) (16.0-40.0) % Shannon % (Auto) (0.0-15.0) % Eos % (Auto) (0.0-7.0) % Baso % (Auto) (0.0-1.5) % Neut # (Auto) (1.4-5.7) K/uL Lymph # (Auto) (0.6-2.4) K/uL Shannon # (Auto) (0.0-0.8) K/uL Eos # (Auto) (0.0-0.7) K/uL Baso # (Auto) (0.0-0.1) K/uL Nucleated RBC % /100WBC Nucleated RBCs # K/uL VBG pH 7.39 (7.31-7.41) VBG pCO2 34 L (35-45) mmHG VBG pO2 60 H (30-40) mmHG VBG HCO3 20 L (22-30) mEq/L VBG Total CO2 17 L (41-51) mmol/L VBG Base Excess -3.6 L (-3.0-3.0) Lactate (0.20-2.00) mmol/L Sodium 140 (136-148) mmol/L Potassium 3.5 (3.5-5.1) mmol/L Chloride 101 (98-107) mmol/L Carbon Dioxide 20.3 L (21.0-32.0) mmol/L BUN 26 H (7.0-18.0) mg/dL Creatinine 1.6 H (0.8-1.3) mg/dL Est Cr Clr Drug Dosing 60.95 mL/min Estimated GFR (MDRD) 45.3 ml/min Glucose 204 H (74-106) mg/dL POC Glucose (60-110) mg/dL Calcium 9.6 (8.5-10.1) mg/dL Magnesium 2.3 (1.8-2.4) mg/dL Total Bilirubin 1.2 H (0.2-1.0) mg/dL AST 29 (15-37) IU/L ALT 52 (14-63) IU/L Alkaline Phosphatase 107 (46-116) U/L Troponin I < 0.050 (0.000-0.056) ng/mL Total Protein 8.4 H (6.4-8.2) g/dL Albumin 5.0 (3.4-5.0) g/dL Globulin 3.4 (2.6-4.0) g/dL Albumin/Globulin Ratio 1.5 (0.9-1.6) Lipase 46 L (73-393) U/L Ketones SMALL H (NEG) SARS-CoV-2 RNA (ABBIE) (NEGATIVE) 12/11/19 12/11/19 Range/Units 14:56 16:58 WBC (4.0-11.0) K/uL RBC (4.50-5.90) M/uL Hgb (13.0-17.0) g/dL Hct (38.0-50.0) % MCV (80.0-98.0) fL MCH (27.0-32.0) pg MCHC (31.0-37.0) g/dL RDW Std Deviation (28.0-62.0) fl RDW Coeff of Charles (11.0-15.0) % Plt Count (150-400) K/uL MPV (7.40-12.00) fL Neut % (Auto) (48.0-80.0) % Lymph % (Auto) (16.0-40.0) % Shannon % (Auto) (0.0-15.0) % Eos % (Auto) (0.0-7.0) % Baso % (Auto) (0.0-1.5) % Neut # (Auto) (1.4-5.7) K/uL Lymph # (Auto) (0.6-2.4) K/uL Shannon # (Auto) (0.0-0.8) K/uL Eos # (Auto) (0.0-0.7) K/uL Baso # (Auto) (0.0-0.1) K/uL Nucleated RBC % /100WBC Nucleated RBCs # K/uL VBG pH (7.31-7.41) VBG pCO2 (35-45) mmHG VBG pO2 (30-40) mmHG VBG HCO3 (22-30) mEq/L VBG Total CO2 (41-51) mmol/L VBG Base Excess (-3.0-3.0) Lactate 2.6 H* (0.20-2.00) mmol/L Sodium (136-148) mmol/L Potassium (3.5-5.1) mmol/L Chloride (98-107) mmol/L Carbon Dioxide (21.0-32.0) mmol/L BUN (7.0-18.0) mg/dL Creatinine (0.8-1.3) mg/dL Est Cr Clr Drug Dosing mL/min Estimated GFR (MDRD) ml/min Glucose (74-106) mg/dL POC Glucose (60-110) mg/dL Calcium (8.5-10.1) mg/dL Magnesium (1.8-2.4) mg/dL Total Bilirubin (0.2-1.0) mg/dL AST (15-37) IU/L ALT (14-63) IU/L Alkaline Phosphatase (46-116) U/L Troponin I (0.000-0.056) ng/mL Total Protein (6.4-8.2) g/dL Albumin (3.4-5.0) g/dL Globulin (2.6-4.0) g/dL Albumin/Globulin Ratio (0.9-1.6) Lipase (73-393) U/L Ketones (NEG) SARS-CoV-2 RNA (ABBIE) NEGATIVE (NEGATIVE) Result Diagrams: 12/11/19 12:09 12/11/19 12:09 Sepsis Event Note - Evaluation Sepsis Screening Result: No Definite Risk - Focused Exam Vital Signs: Vital Signs Temp Pulse Resp BP Pulse Ox 12/11/19 16:53 113 H 16 145/86 H 97 12/11/19 14:33 35.9 C L 100 17 119/79 95 12/11/19 13:30 109 H 18 108/72 94 L 12/11/19 11:31 35.9 C L 126 H 18 131/91 H 95 - Problem List (1) Gastroparesis SNOMED Code(s): 044771742 ICD Code: K31.84 - GASTROPARESIS Status: Acute Current Visit: Yes (2) Abdominal pain SNOMED Code(s): 36337853 ICD Code: R10.9 - UNSPECIFIED ABDOMINAL PAIN Status: Acute Current Visit: No Qualifiers: Abdominal location: right upper quadrant Qualified Code(s): R10.11 - Right upper quadrant pain (3) Acute coronary syndrome SNOMED Code(s): 180532261 ICD Code: I24.9 - ACUTE ISCHEMIC HEART DISEASE, UNSPECIFIED Status: Acute Current Visit: No (4) Cardiomyopathy SNOMED Code(s): 00080292 ICD Code: I42.9 - CARDIOMYOPATHY, UNSPECIFIED Status: Chronic Current Visit: No (5) DM type 1 (diabetes mellitus, type 1) SNOMED Code(s): 82404718 ICD Code: E10.9 - TYPE 1 DIABETES MELLITUS WITHOUT COMPLICATIONS Status: Chronic Current Visit: No Qualifiers: Diabetes mellitus complication status: with hyperglycemia Qualified C ode(s): E10.65 - Type 1 diabetes mellitus with hyperglycemia Problem List Initiated/Reviewed/Updated: Yes Orders Last 24hrs: Active Orders 24 hr Category Date Time Status Patient Status [ADT] Routine ADT 12/11/19 17:11 Active Ambulate [RC] ASDIRECTED Care 12/11/19 18:05 Ordered Antiembolic Devices [RC] PER UNIT ROUTINE Care 12/11/19 18:06 Ordered Blood Glucose Check, Bedside [RC] ONETIME Care 12/11/19 11:46 Active Blood Glucose Check, Bedside [RC] Q6H Care 12/11/19 18:05 Ordered EKG Documentation Completion [RC] STAT Care 12/11/19 11:46 Active Oxygen Therapy [RC] PRN Care 12/11/19 18:05 Ordered RT Aerosol Therapy [RC] ASDIRECTED Care 12/11/19 18:07 Ordered VTE/DVT Education [RC] PER UNIT ROUTINE Care 12/11/19 18:05 Ordered Vital Signs [RC] Q4H Care 12/11/19 18:05 Ordered Nothing per Oral Now Diet [DIET] Diet 12/11/19 Dinner Ordered UA W/SUSAN RFLX IF INDICATED [URIN] Stat Lab 12/11/19 11:47 Ordered Albuterol/Ipratropium [DuoNeb 3.0-0.5 MG/3 ML] Med 12/11/19 18:05 Ordered 3 ml NEB Q4HRRT PRN Lactated Ringers [Ringers, Lactated] 1,000 ml Med 12/11/19 18:15 Ordered IV ASDIRECTED Metoclopramide [Reglan] Med 12/11/19 18:08 Ordered 5 mg IVPUSH Q4H PRN Morphine Med 12/11/19 18:05 Ordered 1 mg IVPUSH Q2H PRN Pantoprazole [ProTONIX IV] Med 12/12/19 09:00 Ordered 40 mg IV Q24H Sodium Chloride 0.9% [Saline Flush] Med 12/11/19 11:46 Active 10 ml FLUSH ASDIRECTED PRN Sodium Chloride 0.9% [Saline Flush] Med 12/11/19 11:46 Active 2.5 ml FLUSH ASDIRECTED PRN Saline Lock Insert [OM.PC] Stat Oth 12/11/19 11:46 Ordered Sequential Compression Device [OM.PC] Per Unit Routine Oth 12/11/19 18:05 Ordered Resuscitation Status Routine Resus Stat 12/11/19 18:05 Ordered Medication Orders Albuterol/Ipratropium (Duoneb 3.0-0.5 Mg/3 Ml) 3 ml NEB Q4HRRT PRN PRN Reason: Shortness Of Breath/wheezing Lactated Ringer's (Ringers, Lactated) 1,000 mls @ 100 mls/hr IV ASDIRECTED ESTEPHANIA Metoclopramide HCl (Reglan) 5 mg IVPUSH Q4H PRN PRN Reason: Nausea/Vomiting Morphine Sulfate (Morphine) 1 mg IVPUSH Q2H PRN PRN Reason: Pain (severe 7-10) Stop: 12/12/19 18:06 Pantoprazole Sodium (Protonix Iv) 40 mg IV Q24H ESTEPHANIA Sodium Chloride (Saline Flush) 10 ml FLUSH ASDIRECTED PRN PRN Reason: Keep Vein Open Last Admin: 12/11/19 13:38 Dose: 10 ml Documented by: ALBERTO Sodium Chloride (Saline Flush) 2.5 ml FLUSH ASDIRECTED PRN PRN Reason: Keep Vein Open Last Admin: 12/11/19 13:38 Dose: 2.5 ml Documented by: ALBERTO Assessment/Plan Comment:: 53 y/o M admitted for N/V abdomimal pain likely due to gastroparesis NPO for now cont IV fluids Trend lactate untill normal IV PPI, IV reglan monitor and replete electrolytes SSI q6h accu checks
[2019-12-11] MEDS: Lactated Ringers 1,000 ML IV SCH (19:39)
[2019-12-11] MEDS: Metoclopramide 10 MG/2 ML SDV IVPUSH PRN (19:49)
[2019-12-11] MEDS ORDERED: Insulin Aspart 100 Units/ML 3 ML Pen SUBCUT ONE ×2 (19:57→21:19)
[2019-12-11] MEDS ORDERED: Insulin Detemir 100 Units/ML 3 ML Pen SUBCUT SCH (21:00)
[2019-12-12] MEDS: Metoclopramide 10 MG/2 ML SDV IVPUSH PRN ×4 (02:45→19:47)
[2019-12-12] MEDS: Amiodarone 200 MG Tab PO SCH ×3 (04:26→21:22)
[2019-12-12] MEDS: Clopidogrel 75 MG Tab PO SCH ×2 (04:26→09:24)
[2019-12-12] MEDS: Apixaban 5 MG Tab PO SCH ×3 (04:27→21:22)
[2019-12-12] MEDS: Metoprolol Tartrate 25 MG Tab PO SCH ×3 (04:27→21:23)
[2019-12-12] MEDS: Aspirin 81 MG Tab.Chew PO SCH ×2 (04:27→09:25)
[2019-12-12 04:34] LABS: CARBON DIOXIDE,CO2 23.3 mmol/L (21.0-32.0); POTASSIUM,K 3.4 mmol/L (3.5-5.1)
[2019-12-12] MEDS: Isosorbide Mononitrate 30 MG Tab.ER PO SCH ×2 (04:59→09:25)
[2019-12-12] MEDS ORDERED: Potassium Chloride Riders 20 MEQ in Premix Bag 1 BAG IV ONE ×2 (05:09→09:58)
[2019-12-12] MEDS ORDERED: Magnesium Sulfate (4.06 MEQ/ML) 5 GM/10 ML SDV IV STA (05:10)
[2019-12-12] MEDS ORDERED: Magnesium Sulfate (4.06 MEQ/ML) 5 GM/10 ML SDV IV ONE (05:12)
[2019-12-12] MEDS ORDERED: Magnesium Sulfate/Water 2 GM/50 ML BAG IV ONE (05:15)
[2019-12-12] MEDS: Lactated Ringers 1,000 ML IV SCH ×2 (05:33→21:29)
[2019-12-12] MEDS: Insulin Aspart 100 Units/ML 3 ML Pen SUBCUT SCH ×4 (07:39→18:24)
[2019-12-12] MEDS ORDERED: FLU VACC QS2020-21(6MOS UP)/PF 60 MCG/0.5 ML SYRINGE IM ONE (09:00)
[2019-12-12] MEDS: Pantoprazole 40 MG Vial IV SCH (09:19)
[2019-12-12] MEDS: Sodium Chloride 0.9% 2.5 ML Syringe FLUSH PRN ×3 (09:20→15:55)
[2019-12-12] MEDS ORDERED: Magnesium Oxide 400 MG Tab PO ONE (09:58)
--- NOTE | 2019-12-12 13:14 | PCM.PN ---
- General Info Date of Service: 12/12/19 Admission Dx/Problem (Free Text): Admission Diagnosis/Problem Admission Diagnosis/Problem Gastroparesis Subjective Update: seen at bedside, overnight has chest pressure, troponins were negative, EKG noted, pain is reproducibly in nature. Appetite is better, would like to try soft diet - Review of Systems General: Reports: Weakness, Fatigue, Malaise. Denies: Fever Pulmonary: Denies: Shortness of Breath, Pleuritic Chest Pain Cardiovascular: Reports: Chest Pain (resolved). Denies: Palpitations, Dyspnea on Exertion, Orthopnea Gastrointestinal: Reports: Abdominal Pain, Decreased Appetite, Nausea. Denies: Constipation, Diarrhea, Difficulty Swallowing, Melena, Vomiting Genitourinary: Denies: Dysuria, Frequency, Burning Musculoskeletal: Denies: Neck Pain, Shoulder Pain, Arm Pain Skin: Denies: Cyanosis, Jaundice, Mottled - Patient Data Vitals - Most Recent: Last Vital Signs Temp 36.7 C 12/12/19 11:29 Pulse 78 12/12/19 11:29 Resp 15 12/12/19 11:29 BP 100/64 12/12/19 11:29 Pulse Ox 95 12/12/19 11:29 Weight - Most Recent: 81.647 kg I&O - Last 24 Hours: Intake & Output 12/11/19 12/12/19 12/12/19 22:59 06:59 14:59 Intake Total 1200 Output Total 680 Balance 520 Lab Results Last 24 Hours: Laboratory Results - last 24 hr 12/11/19 12/11/19 12/11/19 Range/Units 14:56 16:58 19:42 WBC (4.0-11.0) K/uL RBC (4.50-5.90) M/uL Hgb (13.0-17.0) g/dL Hct (38.0-50.0) % MCV (80.0-98.0) fL MCH (27.0-32.0) pg MCHC (31.0-37.0) g/dL RDW Std Deviation (28.0-62.0) fl RDW Coeff of Charles (11.0-15.0) % Plt Count (150-400) K/uL MPV (7.40-12.00) fL Neut % (Auto) (48.0-80.0) % Lymph % (Auto) (16.0-40.0) % [place] % (Auto) (0.0-15.0) % Eos % (Auto) (0.0-7.0) % Baso % (Auto) (0.0-1.5) % Neut # (Auto) (1.4-5.7) K/uL Lymph # (Auto) (0.6-2.4) K/uL [place] # (Auto) (0.0-0.8) K/uL Eos # (Auto) (0.0-0.7) K/uL Baso # (Auto) (0.0-0.1) K/uL Nucleated RBC % /100WBC Nucleated RBCs # K/uL Lactate 2.6 H* (0.20-2.00) mmol/L Sodium (136-148) mmol/L Potassium (3.5-5.1) mmol/L Chloride (98-107) mmol/L Carbon Dioxide (21.0-32.0) mmol/L BUN (7.0-18.0) mg/dL Creatinine (0.8-1.3) mg/dL Est Cr Clr Drug Dosing mL/min Estimated GFR (MDRD) ml/min Glucose (74-106) mg/dL POC Glucose 309 H (60-110) mg/dL Calcium (8.5-10.1) mg/dL Phosphorus (2.6-4.7) mg/dL Magnesium (1.8-2.4) mg/dL Troponin I (0.000-0.056) ng/mL Urine Color Urine Appearance Urine pH (5.0-8.0) Ur Specific [place] (1.001-1.035) Urine Protein (NEGATIVE) mg/dL Urine Glucose (UA) (NEGATIVE) mg/dL Urine Ketones (NEGATIVE) mg/dL Urine Occult Blood (NEGATIVE) Urine Nitrite (NEGATIVE) Urine Bilirubin (NEGATIVE) Urine Urobilinogen (<2.0) EU/dL Ur Leukocyte Esterase (NEGATIVE) SARS-CoV-2 RNA (ABBIE) NEGATIVE (NEGATIVE) 12/11/19 12/11/19 12/11/19 Range/Units 19:45 19:45 20:55 WBC (4.0-11.0) K/uL RBC (4.50-5.90) M/uL Hgb (13.0-17.0) g/dL Hct (38.0-50.0) % MCV (80.0-98.0) fL MCH (27.0-32.0) pg MCHC (31.0-37.0) g/dL RDW Std Deviation (28.0-62.0) fl RDW Coeff of Charles (11.0-15.0) % Plt Count (150-400) K/uL MPV (7.40-12.00) fL Neut % (Auto) (48.0-80.0) % Lymph % (Auto) (16.0-40.0) % [place] % (Auto) (0.0-15.0) % Eos % (Auto) (0.0-7.0) % Baso % (Auto) (0.0-1.5) % Neut # (Auto) (1.4-5.7) K/uL Lymph # (Auto) (0.6-2.4) K/uL [place] # (Auto) (0.0-0.8) K/uL Eos # (Auto) (0.0-0.7) K/uL Baso # (Auto) (0.0-0.1) K/uL Nucleated RBC % /100WBC Nucleated RBCs # K/uL Lactate 1.5 (0.20-2.00) mmol/L Sodium (136-148) mmol/L Potassium (3.5-5.1) mmol/L Chloride (98-107) mmol/L Carbon Dioxide (21.0-32.0) mmol/L BUN (7.0-18.0) mg/dL Creatinine (0.8-1.3) mg/dL Est Cr Clr Drug Dosing mL/min Estimated GFR (MDRD) ml/min Glucose (74-106) mg/dL POC Glucose 402 H (60-110) mg/dL Calcium (8.5-10.1) mg/dL Phosphorus (2.6-4.7) mg/dL Magnesium (1.8-2.4) mg/dL Troponin I (0.000-0.056) ng/mL Urine Color YELLOW Urine Appearance CLEAR Urine pH 5.5 (5.0-8.0) Ur Specific [place] 1.025 (1.001-1.035) Urine Protein NEGATIVE (NEGATIVE) mg/dL Urine Glucose (UA) >=1000 (NEGATIVE) mg/dL Urine Ketones 40 H (NEGATIVE) mg/dL Urine Occult Blood NEGATIVE (NEGATIVE) Urine Nitrite NEGATIVE (NEGATIVE) Urine Bilirubin NEGATIVE (NEGATIVE) Urine Urobilinogen 0.2 (<2.0) EU/dL Ur Leukocyte Esterase NEGATIVE (NEGATIVE) SARS-CoV-2 RNA (ABBIE) (NEGATIVE) 12/11/19 12/12/19 12/12/19 Range/Units 23:04 03:04 04:07 WBC 7.15 (4.0-11.0) K/uL RBC 3.86 L (4.50-5.90) M/uL Hgb 12.6 L (13.0-17.0) g/dL Hct 36.9 L (38.0-50.0) % MCV 95.6 (80.0-98.0) fL MCH 32.6 H (27.0-32.0) pg MCHC 34.1 (31.0-37.0) g/dL RDW Std Deviation 47.5 (28.0-62.0) fl RDW Coeff of Charles 14 (11.0-15.0) % Plt Count 226 (150-400) K/uL MPV 9.10 (7.40-12.00) fL Neut % (Auto) 71.8 (48.0-80.0) % Lymph % (Auto) 17.6 (16.0-40.0) % [place] % (Auto) 10.1 (0.0-15.0) % Eos % (Auto) 0.1 (0.0-7.0) % Baso % (Auto) 0.4 (0.0-1.5) % Neut # (Auto) 5.1 (1.4-5.7) K/uL Lymph # (Auto) 1.3 (0.6-2.4) K/uL [place] # (Auto) 0.7 (0.0-0.8) K/uL Eos # (Auto) 0.0 (0.0-0.7) K/uL Baso # (Auto) 0.0 (0.0-0.1) K/uL Nucleated RBC % 0.0 /100WBC Nucleated RBCs # 0 K/uL Lactate (0.20-2.00) mmol/L Sodium (136-148) mmol/L Potassium (3.5-5.1) mmol/L Chloride (98-107) mmol/L Carbon Dioxide (21.0-32.0) mmol/L BUN (7.0-18.0) mg/dL Creatinine (0.8-1.3) mg/dL Est Cr Clr Drug Dosing mL/min Estimated GFR (MDRD) ml/min Glucose (74-106) mg/dL POC Glucose 272 H 279 H (60-110) mg/dL Calcium (8.5-10.1) mg/dL Phosphorus (2.6-4.7) mg/dL Magnesium (1.8-2.4) mg/dL Troponin I (0.000-0.056) ng/mL Urine Color Urine Appearance Urine pH (5.0-8.0) Ur Specific [place] (1.001-1.035) Urine Protein (NEGATIVE) mg/dL Urine Glucose (UA) (NEGATIVE) mg/dL Urine Ketones (NEGATIVE) mg/dL Urine Occult Blood (NEGATIVE) Urine Nitrite (NEGATIVE) Urine Bilirubin (NEGATIVE) Urine Urobilinogen (<2.0) EU/dL Ur Leukocyte Esterase (NEGATIVE) SARS-CoV-2 RNA (ABBIE) (NEGATIVE) 12/12/19 12/12/19 12/12/19 Range/Units 04:07 04:07 06:25 WBC (4.0-11.0) K/uL RBC (4.50-5.90) M/uL Hgb (13.0-17.0) g/dL Hct (38.0-50.0) % MCV (80.0-98.0) fL MCH (27.0-32.0) pg MCHC (31.0-37.0) g/dL RDW Std Deviation (28.0-62.0) fl RDW Coeff of Charles (11.0-15.0) % Plt Count (150-400) K/uL MPV (7.40-12.00) fL Neut % (Auto) (48.0-80.0) % Lymph % (Auto) (16.0-40.0) % [place] % (Auto) (0.0-15.0) % Eos % (Auto) (0.0-7.0) % Baso % (Auto) (0.0-1.5) % Neut # (Auto) (1.4-5.7) K/uL Lymph # (Auto) (0.6-2.4) K/uL [place] # (Auto) (0.0-0.8) K/uL Eos # (Auto) (0.0-0.7) K/uL Baso # (Auto) (0.0-0.1) K/uL Nucleated RBC % /100WBC Nucleated RBCs # K/uL Lactate (0.20-2.00) mmol/L Sodium 138 (136-148) mmol/L Potassium 3.4 L (3.5-5.1) mmol/L Chloride 103 (98-107) mmol/L Carbon Dioxide 23.3 (21.0-32.0) mmol/L BUN 16 (7.0-18.0) mg/dL Creatinine 1.3 (0.8-1.3) mg/dL Est Cr Clr Drug Dosing 75.02 mL/min Estimated GFR (MDRD) 57.5 ml/min Glucose 307 H (74-106) mg/dL POC Glucose 242 H (60-110) mg/dL Calcium 8.3 L (8.5-10.1) mg/dL Phosphorus 3.5 (2.6-4.7) mg/dL Magnesium 1.8 (1.8-2.4) mg/dL Troponin I < 0.050 (0.000-0.056) ng/mL Urine Color Urine Appearance Urine pH (5.0-8.0) Ur Specific [place] (1.001-1.035) Urine Protein (NEGATIVE) mg/dL Urine Glucose (UA) (NEGATIVE) mg/dL Urine Ketones (NEGATIVE) mg/dL Urine Occult Blood (NEGATIVE) Urine Nitrite (NEGATIVE) Urine Bilirubin (NEGATIVE) Urine Urobilinogen (<2.0) EU/dL Ur Leukocyte Esterase (NEGATIVE) SARS-CoV-2 RNA (ABBIE) (NEGATIVE) 12/12/19 Range/Units 07:15 WBC (4.0-11.0) K/uL RBC (4.50-5.90) M/uL Hgb (13.0-17.0) g/dL Hct (38.0-50.0) % MCV (80.0-98.0) fL MCH (27.0-32.0) pg MCHC (31.0-37.0) g/dL RDW Std Deviation (28.0-62.0) fl RDW Coeff of Charles (11.0-15.0) % Plt Count (150-400) K/uL MPV (7.40-12.00) fL Neut % (Auto) (48.0-80.0) % Lymph % (Auto) (16.0-40.0) % [place] % (Auto) (0.0-15.0) % Eos % (Auto) (0.0-7.0) % Baso % (Auto) (0.0-1.5) % Neut # (Auto) (1.4-5.7) K/uL Lymph # (Auto) (0.6-2.4) K/uL [place] # (Auto) (0.0-0.8) K/uL Eos # (Auto) (0.0-0.7) K/uL Baso # (Auto) (0.0-0.1) K/uL Nucleated RBC % /100WBC Nucleated RBCs # K/uL Lactate (0.20-2.00) mmol/L Sodium (136-148) mmol/L Potassium (3.5-5.1) mmol/L Chloride (98-107) mmol/L Carbon Dioxide (21.0-32.0) mmol/L BUN (7.0-18.0) mg/dL Creatinine (0.8-1.3) mg/dL Est Cr Clr Drug Dosing mL/min Estimated GFR (MDRD) ml/min Glucose (74-106) mg/dL POC Glucose (60-110) mg/dL Calcium (8.5-10.1) mg/dL Phosphorus (2.6-4.7) mg/dL Magnesium (1.8-2.4) mg/dL Troponin I < 0.050 (0.000-0.056) ng/mL Urine Color Urine Appearance Urine pH (5.0-8.0) Ur Specific [place] (1.001-1.035) Urine Protein (NEGATIVE) mg/dL Urine Glucose (UA) (NEGATIVE) mg/dL Urine Ketones (NEGATIVE) mg/dL Urine Occult Blood (NEGATIVE) Urine Nitrite (NEGATIVE) Urine Bilirubin (NEGATIVE) Urine Urobilinogen (<2.0) EU/dL Ur Leukocyte Esterase (NEGATIVE) SARS-CoV-2 RNA (ABBIE) (NEGATIVE) Med Orders - Current: Current Medications Albuterol/Ipratropium (Duoneb 3.0-0.5 Mg/3 Ml) 3 ml NEB Q4HRRT PRN PRN Reason: Shortness Of Breath/wheezing Amiodarone HCl (Cordarone) 200 mg PO BID [facility] Last Admin: 12/12/19 09:28 Dose: 200 mg Documented by: Apixaban (Eliquis) 5 mg PO BID [facility] Last Admin: 12/12/19 09:23 Dose: 5 mg Documented by: Aspirin (Aspirin) 81 mg PO DAILY [facility] Last Admin: 12/12/19 09:25 Dose: 81 mg Documented by: Clopidogrel Bisulfate (Plavix) 75 mg PO DAILY [facility] Last Admin: 12/12/19 09:24 Dose: 75 mg Documented by: Lactated Ringer's (Ringers, Lactated) 1,000 mls @ 100 mls/hr IV ASDIRECTED [facility] Last Admin: 12/12/19 05:33 Dose: 100 mls/hr Documented by: Insulin Aspart (Novolog) 0 unit SUBCUT TIDAC [facility]; Protocol Last Admin: 12/12/19 07:39 Dose: 2 units Documented by: Insulin Detemir (Levemir) 10 unit SUBCUT BEDTIME [facility] Last Admin: 12/11/19 23:09 Dose: 10 units Documented by: Isosorbide Mononitrate (Imdur) 30 mg PO DAILY [facility] Last Admin: 12/12/19 09:25 Dose: 30 mg Documented by: Metoclopramide HCl (Reglan) 5 mg IVPUSH Q4H PRN PRN Reason: Nausea/Vomiting Last Admin: 12/12/19 09:19 Dose: 5 mg Documented by: Metoprolol Tartrate (Lopressor) 50 mg PO BID [facility] Last Admin: 12/12/19 09:27 Dose: 50 mg Documented by: Morphine Sulfate (Morphine) 1 mg IVPUSH Q2H PRN PRN Reason: Pain (severe 7-10) Stop: 12/12/19 18:06 Last Admin: 12/12/19 02:45 Dose: 1 mg Documented by: Pantoprazole Sodium (Protonix Iv) 40 mg IV Q24H [facility] Last Admin: 12/12/19 09:19 Dose: 40 mg Documented by: Sodium Chloride (Saline Flush) 10 ml FLUSH ASDIRECTED PRN PRN Reason: Keep Vein Open Last Admin: 12/11/19 13:38 Dose: 10 ml Documented by: Sodium Chloride (Saline Flush) 2.5 ml FLUSH ASDIRECTED PRN PRN Reason: Keep Vein Open Last Admin: 12/12/19 09:20 Dose: 2.5 ml Documented by: Discontinued Medications Haloperidol Lactate (Haldol) 5 mg IM ONETIME ONE Stop: 12/11/19 11:50 Last Admin: 12/11/19 12:45 Dose: 5 mg Documented by: Lactated Ringer's (Ringers, Lactated) 1,000 mls @ 999 mls/hr IV .BOLUS ONE Stop: 12/11/19 12:46 Last Admin: 12/11/19 12:45 Dose: 999 mls/hr Documented by: Pantoprazole Sodium 40 mg/ (Sodium Chloride) 10 mls @ 300 mls/hr IV NOW ONE Stop: 12/11/19 11:47 Last Admin: 12/11/19 12:45 Dose: 300 mls/hr Documented by: Sodium Chloride (Normal Saline) 1,000 mls @ 999 mls/hr IV .Bolus ONE Stop: 12/11/19 13:50 Last Admin: 12/11/19 13:36 Dose: 999 mls/hr Documented by: Sodium Chloride (Normal Saline) 1,000 mls @ 999 mls/hr IV .Bolus ONE Stop: 12/11/19 16:12 Last Admin: 12/11/19 15:19 Dose: 999 mls/hr Documented by: Potassium Chloride 20 meq/ (Premix) 50 mls @ 25 mls/hr IV ONETIME ONE Stop: 12/12/19 07:08 Last Admin: 12/12/19 06:35 Dose: 25 mls/hr Documented by: Magnesium Sulfate (Magnesium Sulfate In Water Premix) 2 gm in 50 mls @ 50 mls/hr IV ONETIME ONE Stop: 12/12/19 06:14 Last Admin: 12/12/19 05:31 Dose: 50 mls/hr Documented by: Potassium Chloride 20 meq/ (Premix) 50 mls @ 25 mls/hr IV ONETIME ONE Stop: 12/12/19 11:57 Last Admin: 12/12/19 10:51 Dose: 25 mls/hr Documented by: Influenza Virus Vaccine (Fluzone Quad Syringe) 60 mcg IM .ONCE ONE Stop: 12/12/19 09:01 Insulin Aspart (Novolog) 4 unit SUBCUT ONETIME ONE Stop: 12/11/19 19:58 Last Admin: 12/11/19 20:12 Dose: 4 units Documented by: Insulin Aspart (Novolog) 10 unit SUBCUT ONETIME ONE Stop: 12/11/19 21:20 Last Admin: 12/11/19 21:34 Dose: 10 units Documented by: Magnesium Oxide (Magnesium Oxide) 400 mg PO ONETIME ONE Stop: 12/12/19 09:59 Last Admin: 12/12/19 10:50 Dose: 400 mg Documented by: Metoclopramide HCl (Reglan) 10 mg IVPUSH ONETIME ONE Stop: 12/11/19 16:23 Last Admin: 12/11/19 16:33 Dose: 10 mg Documented by: Ondansetron HCl (Zofran) 4 mg IVPUSH ONETIME ONE Stop: 12/11/19 15:17 Last Admin: 12/11/19 15:19 Dose: 4 mg Documented by: - Exam General: Alert, Oriented Neck: Supple, Trachea Midline Lungs: Clear to Auscultation, Normal Respiratory Effort Cardiovascular: Regular Rate, Regular Rhythm GI/Abdominal Exam: Soft, Guarding, Rigid, Tender, Abnormal Bowel Sounds. No: Normal Bowel Sounds, Non-Tender, No Organomegaly, Distended, Hepatomegaly, Splenomegaly Sepsis Event Note - Evaluation Sepsis Screening Result: No Definite Risk - Focused Exam Vital Signs: Vital Signs Temp Pulse Pulse Resp BP BP Pulse Ox 12/12/19 11:29 36.7 C 78 15 100/64 95 12/12/19 09:27 85 113/62 12/12/19 09:25 113/62 12/12/19 09:05 36.7 C 87 16 114/69 96 12/12/19 05:00 36.6 C 86 16 109/61 95 12/12/19 04:59 144/73 H 12/12/19 04:27 110 H 144/73 H 12/12/19 03:00 37.2 C 22 H 144/73 H 95 - Problem List & Annotations (1) Gastroparesis SNOMED Code(s): 581989456 Code(s): K31.84 - GASTROPARESIS Status: Acute Current Visit: Yes (2) Abdominal pain SNOMED Code(s): 04751738 Code(s): R10.9 - UNSPECIFIED ABDOMINAL PAIN Status: Acute Current Visit: No Qualifiers: Abdominal location: right upper quadrant Qualified Code(s): R10.11 - Right upper quadrant pain (3) Acute coronary syndrome SNOMED Code(s): 030847856 Code(s): I24.9 - ACUTE ISCHEMIC HEART DISEASE, UNSPECIFIED Status: Acute Current Visit: No (4) Cardiomyopathy SNOMED Code(s): 85570631 Code(s): I42.9 - CARDIOMYOPATHY, UNSPECIFIED Status: Chronic Current Visit: No (5) DM type 1 (diabetes mellitus, type 1) SNOMED Code(s): 73406220 Code(s): E10.9 - TYPE 1 DIABETES MELLITUS WITHOUT COMPLICATIONS Status: Chronic Current Visit: No Qualifiers: Diabetes mellitus complication status: with hyperglycemia Qualified Code(s): E10.65 - Type 1 diabetes mellitus with hyperglycemia (6) Chest pain SNOMED Code(s): 96067467 Code(s): R07.9 - CHEST PAIN, UNSPECIFIED Status: Acute Current Visit: No Qualifiers: Chest pain type: chest pain on breathing Qualified Code(s): R07.1 - Chest pain on breathing; R07.81 - Pleurodynia - Problem List Review Problem List Initiated/Reviewed/Updated: Yes - My Orders Last 24 Hours: My Active Orders 12/11/19 17:59 Telemetry Monitoring [Cardiac Monitoring] [RC] Q8H 12/11/19 18:05 Ambulate [RC] ASDIRECTED Blood Glucose Check, Bedside [RC] Q6H Oxygen Therapy [RC] PRN VTE/DVT Education [RC] PER UNIT ROUTINE Vital Signs [RC] Q4H Albuterol/Ipratropium [DuoNeb 3.0-0.5 MG/3 ML] 3 ml NEB Q4HRRT PRN Morphine 1 mg IVPUSH Q2H PRN Sequential Compression Device [OM.PC] Per Unit Routine Resuscitation Status Routine 12/11/19 18:06 Antiembolic Devices [RC] PER UNIT ROUTINE 12/11/19 18:07 RT Aerosol Therapy [RC] ASDIRECTED 12/11/19 18:08 Metoclopramide [Reglan] 5 mg IVPUSH Q4H PRN 12/11/19 18:15 Lactated Ringers [Ringers, Lactated] 1,000 ml IV ASDIRECTED 12/11/19 21:00 Insulin Detemir [Levemir] 10 unit SUBCUT BEDTIME 12/12/19 00:12 Influenza Vaccine Charge [RC] .DISCHARGE 12/12/19 04:15 Amiodarone [Cordarone] 200 mg PO BID Apixaban [Eliquis] 5 mg PO BID Aspirin 81 mg PO DAILY Clopidogrel [Plavix] 75 mg PO DAILY Isosorbide Mononitrate [Imdur] 30 mg PO DAILY Metoprolol Tartrate [Lopressor] 50 mg PO BID 12/12/19 07:30 Insulin Aspart [NovoLOG] See Protocol SUBCUT TIDAC 12/12/19 09:00 Pantoprazole [ProTONIX IV] 40 mg IV Q24H 12/12/19 Lunch Soft Diet [DIET] - Plan Plan:: 53 y/o M admitted for N/V abdomimal pain likely due to gastroparesis advance to soft diet cont IV fluids IV PPI, IV reglan monitor and replete electrolytes SSI q6h accu checks Troponin negative, EKG noted, chest pain is reproducible, likely musculoskeletal in nature
[2019-12-12] MEDS ORDERED: Insulin Aspart 100 Units/ML 3 ML Pen SUBCUT ONE ×3 (14:27→15:56)
[2019-12-12] MEDS ORDERED: Lactated Ringers 1,000 ML IV ONE ×2 (14:30→15:39)
[2019-12-12] MEDS ORDERED: Lactated Ringers 500 ML IV ONE (14:39)
[2019-12-12] MEDS ORDERED: Insulin Detemir 100 Units/ML 3 ML Pen SUBCUT ONE (15:09)
[2019-12-12] MEDS ORDERED: Insulin Regular, Human 100 Units/ML 10 ML Vial SUBCUT ONE (15:53)
[2019-12-12] MEDS ORDERED: Insulin Detemir 100 Units/ML 3 ML Pen SUBCUT SCH (21:00)
[2019-12-12] MEDS ORDERED: 50% Dextrose in Water 50 ML Syringe IVPUSH ONE (21:43)
[2019-12-13 06:41] LABS: BLOOD UREA NITROGEN,BUN 8 mg/dL (7.0-18.0); CARBON DIOXIDE,CO2 23.6 mmol/L (21.0-32.0); CHLORIDE,CL 105 mmol/L (98-107); GLUCOSE RANDOM 148 mg/dL (74-106); POTASSIUM,K 3.6 mmol/L (3.5-5.1); SODIUM,NA 142 mmol/L (136-148)
[2019-12-13] MEDS: Lactated Ringers 1,000 ML IV SCH (07:26)
[2019-12-13] MEDS: Metoclopramide 10 MG/2 ML SDV IVPUSH PRN (07:27)
[2019-12-13] MEDS: Insulin Aspart 100 Units/ML 3 ML Pen SUBCUT SCH ×2 (07:58)
[2019-12-13] MEDS ORDERED: Magnesium Sulfate/Water 2 GM/50 ML Premix Bag IV STA (08:01)
[2019-12-13 08:09] VITALS: BP 145/81; PULSE 77
[2019-12-13] MEDS: Aspirin 81 MG Tab.Chew PO SCH (08:45)
[2019-12-13] MEDS: Apixaban 5 MG Tab PO SCH (08:45)
[2019-12-13] MEDS: Clopidogrel 75 MG Tab PO SCH (08:45)
[2019-12-13] MEDS: Isosorbide Mononitrate 30 MG Tab.ER PO SCH (08:45)
[2019-12-13] MEDS: Metoprolol Tartrate 25 MG Tab PO SCH (08:46)
[2019-12-13] MEDS: Amiodarone 200 MG Tab PO SCH (08:46)
[2019-12-13] MEDS: Pantoprazole 40 MG Vial IV SCH (08:47)
--- NOTE | 2019-12-13 10:56 | PCM.DCSUM1 ---
Discharge Summary - Hospital Course Brief History: 53M PMHx CAD w/ stents, h/o cabg, PPM, IDDM1, gastroparesis presents with c/o N/V and abdominal pain x2-days. Patient states that his symptoms are similar to his last stay in hospital. Denies fevers, cough, SOB. Vomiting TNTC. No blood in vomit. Has been compliant with insulin for DM but hasn't not been able to keep anything oral down. In the ER he was found to have elevated lactate at 3.9, LATOYA, he receive aggressive IV hydration, his symptoms improved initially after IV antiemetics and Haldol but later he had another episode of vomiting hence was admitted for further management. - Discharge Data Discharge Date: 12/13/19 Discharge Disposition: Home, Self-Care 01 Condition: Stable - Referral to Home Health Primary Care Physician: PCP None - Patient Summary/Data Hospital Course: Admitting Diagnoses: Gastroparesis Discharge Diagnoses: Gastroparesis Shirley was admitted, placed NPO and treated with Reglan. He slowly improved and today he was able to eat breakfast with Reglan given before meals. He tolerated this well. During hsi stay he had BS that were out of controlled, elevating to the 500s. He needs to be evaluated by Endocrinology for better DM control, this referral will be sent. He also need evaluation for gastroparesis, he will have referral sent to [facility] per his request for this as well. He is to take Reglan three times daily and try eating small frequent meals and slowly to help with gastroparesis. 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 He is to return to ED or clinic if concerns should arise. - Patient Instructions Diet: Heart Healthy Diet, GI Soft/Low Residue/Low Fiber Diet, Other: Eat small frequent meals, eat slowly. small portions. Activity: As Tolerated Showering/Bathing: May Shower Notify Provider of: Fever, Increased Pain, Swelling and Redness, Drainage, Nausea and/or Vomiting - Discharge Plan *PRESCRIPTION DRUG MONITORING PROGRAM REVIEWED*: Not Applicable *COPY OF PRESCRIPTION DRUG MONITORING REPORT IN PATIENT CEZAR: Not Applicable Prescriptions/Med Rec: Metoclopramide [Reglan] 5 mg PO TIDAC #30 tab Home Medications: Home Meds Insulin Aspart [NovoLOG] See Protocol SUBCUT TIDMEALS #0 12/25/16 [Rx] Metoprolol Tartrate 50 mg PO BID 01/05/19 [History] Topiramate 25 mg PO BID 01/05/19 [History] atorvaSTATin [Lipitor] 10 mg PO DAILY 01/05/19 [History] Insulin Lispro [Humalog Kwikpen U-100] 1 unit SQ ASDIRECTED 06/11/19 [History] Losartan [Cozaar] 50 mg PO DAILY 06/11/19 [History] Apixaban [Eliquis] 5 mg PO BID 11/02/19 [History] DULoxetine [Cymbalta] 30 mg PO DAILY 11/02/19 [History] Ranolazine [Ranolazine ER] 500 mg PO BID 11/02/19 [History] Pantoprazole Sodium [Protonix] 40 mg PO BID #60 tablet.dr 11/03/19 [Rx] Amiodarone [Cordarone] 200 mg PO BID 11/27/19 [History] Aspirin 81 mg PO DAILY 11/27/19 [History] Clopidogrel [Plavix] 75 mg PO DAILY 11/27/19 [History] Isosorbide Mononitrate [Isosorbide Mononitrate ER] 30 mg PO DAILY 11/27/19 [History] Potassium Chloride 10 meq PO BID 11/27/19 [History] Sucralfate [Carafate] 1 gm PO QID 11/27/19 [History] Acetaminophen [Mapap] 500 mg PO BID PRN #60 tablet 12/02/19 [Rx] Pantoprazole [ProTONIX] 40 mg PO DAILY #30 tab.cr 12/02/19 [Rx] Tamsulosin [Flomax] 0.4 mg PO BEDTIME #30 cap.er 12/02/19 [Rx] Metoclopramide [Reglan] 5 mg PO TIDAC #30 tab 12/13/19 [Rx] Oxygen Therapy Mode: Room Air Patient Handouts: Metoclopramide tablets, Gastroparesis Referrals: Elder Diez MD [Ordering Only Provider] - 12/17/19 9:30 am - Discharge Summary/Plan Comment DC Time >30 min.: No - Patient Data Vitals - Most Recent: Last Vital Signs Temp 98.4 F 12/13/19 07:20 Pulse 77 10/05/20 08:46 Resp 16 12/13/19 07:20 BP 145/81 H 12/13/19 08:46 Pulse Ox 96 12/13/19 07:20 Weight - Most Recent: 81.647 kg I&O - Last 24 hours: Intake & Output 12/12/19 12/13/19 12/13/19 22:59 06:59 14:59 Intake Total 4150 3233 Output Total 1425 700 Balance 2716 5893 Lab Results - Last 24 hrs: Laboratory Results - last 24 hr 12/12/19 12/12/19 12/12/19 Range/Units 13:48 14:19 14:20 WBC (4.0-11.0) K/uL RBC (4.50-5.90) M/uL Hgb (13.0-17.0) g/dL Hct (38.0-50.0) % MCV (80.0-98.0) fL MCH (27.0-32.0) pg MCHC (31.0-37.0) g/dL RDW Std Deviation (28.0-62.0) fl RDW Coeff of Charles (11.0-15.0) % Plt Count (150-400) K/uL MPV (7.40-12.00) fL Neut % (Auto) (48.0-80.0) % Lymph % (Auto) (16.0-40.0) % [facility] % (Auto) (0.0-15.0) % Eos % (Auto) (0.0-7.0) % Baso % (Auto) (0.0-1.5) % Neut # (Auto) (1.4-5.7) K/uL Lymph # (Auto) (0.6-2.4) K/uL [facility] # (Auto) (0.0-0.8) K/uL Eos # (Auto) (0.0-0.7) K/uL Baso # (Auto) (0.0-0.1) K/uL Nucleated RBC % /100WBC Nucleated RBCs # K/uL Sodium (136-148) mmol/L Potassium (3.5-5.1) mmol/L Chloride (98-107) mmol/L Carbon Dioxide (21.0-32.0) mmol/L BUN (7.0-18.0) mg/dL Creatinine (0.8-1.3) mg/dL Est Cr Clr Drug Dosing mL/min Estimated GFR (MDRD) ml/min Glucose (74-106) mg/dL POC Glucose > 500 H > 500 H > 500 H (60-110) mg/dL Calcium (8.5-10.1) mg/dL Phosphorus (2.6-4.7) mg/dL Magnesium (1.8-2.4) mg/dL 12/12/19 12/12/19 12/12/19 Range/Units 15:05 15:52 17:24 WBC (4.0-11.0) K/uL RBC (4.50-5.90) M/uL Hgb (13.0-17.0) g/dL Hct (38.0-50.0) % MCV (80.0-98.0) fL MCH (27.0-32.0) pg MCHC (31.0-37.0) g/dL RDW Std Deviation (28.0-62.0) fl RDW Coeff of Charles (11.0-15.0) % Plt Count (150-400) K/uL MPV (7.40-12.00) fL Neut % (Auto) (48.0-80.0) % Lymph % (Auto) (16.0-40.0) % [facility] % (Auto) (0.0-15.0) % Eos % (Auto) (0.0-7.0) % Baso % (Auto) (0.0-1.5) % Neut # (Auto) (1.4-5.7) K/uL Lymph # (Auto) (0.6-2.4) K/uL [facility] # (Auto) (0.0-0.8) K/uL Eos # (Auto) (0.0-0.7) K/uL Baso # (Auto) (0.0-0.1) K/uL Nucleated RBC % /100WBC Nucleated RBCs # K/uL Sodium (136-148) mmol/L Potassium (3.5-5.1) mmol/L Chloride (98-107) mmol/L Carbon Dioxide (21.0-32.0) mmol/L BUN (7.0-18.0) mg/dL Creatinine (0.8-1.3) mg/dL Est Cr Clr Drug Dosing mL/min Estimated GFR (MDRD) ml/min Glucose (74-106) mg/dL POC Glucose > 500 H 433 H 155 H (60-110) mg/dL Calcium (8.5-10.1) mg/dL Phosphorus (2.6-4.7) mg/dL Magnesium (1.8-2.4) mg/dL 12/12/19 12/12/19 12/13/19 Range/Units 21:20 22:36 05:50 WBC 4.41 (4.0-11.0) K/uL RBC 3.71 L (4.50-5.90) M/uL Hgb 11.9 L (13.0-17.0) g/dL Hct 35.9 L (38.0-50.0) % MCV 96.8 (80.0-98.0) fL MCH 32.1 H (27.0-32.0) pg MCHC 33.1 (31.0-37.0) g/dL RDW Std Deviation 46.4 (28.0-62.0) fl RDW Coeff of Charles 13 (11.0-15.0) % Plt Count 191 (150-400) K/uL MPV 9.30 (7.40-12.00) fL Neut % (Auto) 60.7 (48.0-80.0) % Lymph % (Auto) 29.3 (16.0-40.0) % [facility] % (Auto) 8.6 (0.0-15.0) % Eos % (Auto) 0.9 (0.0-7.0) % Baso % (Auto) 0.5 (0.0-1.5) % Neut # (Auto) 2.7 (1.4-5.7) K/uL Lymph # (Auto) 1.3 (0.6-2.4) K/uL [facility] # (Auto) 0.4 (0.0-0.8) K/uL Eos # (Auto) 0.0 (0.0-0.7) K/uL Baso # (Auto) 0.0 (0.0-0.1) K/uL Nucleated RBC % 0.0 /100WBC Nucleated RBCs # 0 K/uL Sodium (136-148) mmol/L Potassium (3.5-5.1) mmol/L Chloride (98-107) mmol/L Carbon Dioxide (21.0-32.0) mmol/L BUN (7.0-18.0) mg/dL Creatinine (0.8-1.3) mg/dL Est Cr Clr Drug Dosing mL/min Estimated GFR (MDRD) ml/min Glucose (74-106) mg/dL POC Glucose 47 L 126 H (60-110) mg/dL Calcium (8.5-10.1) mg/dL Phosphorus (2.6-4.7) mg/dL Magnesium (1.8-2.4) mg/dL 12/13/19 12/13/19 12/13/19 Range/Units 05:50 06:00 07:36 WBC (4.0-11.0) K/uL RBC (4.50-5.90) M/uL Hgb (13.0-17.0) g/dL Hct (38.0-50.0) % MCV (80.0-98.0) fL MCH (27.0-32.0) pg MCHC (31.0-37.0) g/dL RDW Std Deviation (28.0-62.0) fl RDW Coeff of Charles (11.0-15.0) % Plt Count (150-400) K/uL MPV (7.40-12.00) fL Neut % (Auto) (48.0-80.0) % Lymph % (Auto) (16.0-40.0) % [facility] % (Auto) (0.0-15.0) % Eos % (Auto) (0.0-7.0) % Baso % (Auto) (0.0-1.5) % Neut # (Auto) (1.4-5.7) K/uL Lymph # (Auto) (0.6-2.4) K/uL [facility] # (Auto) (0.0-0.8) K/uL Eos # (Auto) (0.0-0.7) K/uL Baso # (Auto) (0.0-0.1) K/uL Nucleated RBC % /100WBC Nucleated RBCs # K/uL Sodium 142 (136-148) mmol/L Potassium 3.6 (3.5-5.1) mmol/L Chloride 105 (98-107) mmol/L Carbon Dioxide 23.6 (21.0-32.0) mmol/L BUN 8 (7.0-18.0) mg/dL Creatinine 1.2 (0.8-1.3) mg/dL Est Cr Clr Drug Dosing 81.27 mL/min Estimated GFR (MDRD) > 60.0 ml/min Glucose 148 H (74-106) mg/dL POC Glucose 158 H 110 (60-110) mg/dL Calcium 7.9 L (8.5-10.1) mg/dL Phosphorus 3.8 (2.6-4.7) mg/dL Magnesium 1.7 L (1.8-2.4) mg/dL Med Orders - Current: Current Medications Albuterol/Ipratropium (Duoneb 3.0-0.5 Mg/3 Ml) 3 ml NEB Q4HRRT PRN PRN Reason: Shortness Of Breath/wheezing Amiodarone HCl (Cordarone) 200 mg PO BID [facility] Last Admin: 12/13/19 08:46 Dose: 200 mg Documented by: Apixaban (Eliquis) 5 mg PO BID [facility] Last Admin: 12/13/19 08:45 Dose: 5 mg Documented by: Aspirin (Aspirin) 81 mg PO DAILY [facility] Last Admin: 12/13/19 08:45 Dose: 81 mg Documented by: Clopidogrel Bisulfate (Plavix) 75 mg PO DAILY [facility] Last Admin: 12/13/19 08:45 Dose: 75 mg Documented by: Lactated Ringer's (Ringers, Lactated) 1,000 mls @ 100 mls/hr IV ASDIRECTED [facility] Last Admin: 12/13/19 07:26 Dose: 100 mls/hr Documented by: Insulin Aspart (Novolog) 0 unit SUBCUT TIDAC [facility]; Protocol Last Admin: 12/13/19 07:58 Dose: Not Given Documented by: Insulin Aspart (Novolog) 6 unit SUBCUT TIDAC [facility] Last Admin: 12/13/19 07:58 Dose: 6 units Documented by: Insulin Detemir (Levemir) 20 unit SUBCUT BEDTIME [facility] Last Admin: 12/12/19 22:42 Dose: 12 units Documented by: Isosorbide Mononitrate (Imdur) 30 mg PO DAILY [facility] Last Admin: 12/13/19 08:45 Dose: 30 mg Documented by: Metoclopramide HCl (Reglan) 5 mg IVPUSH Q4H PRN PRN Reason: Nausea/Vomiting Last Admin: 12/13/19 07:27 Dose: 5 mg Documented by: Metoprolol Tartrate (Lopressor) 50 mg PO BID [facility] Last Admin: 12/13/19 08:46 Dose: 50 mg Documented by: Pantoprazole Sodium (Protonix Iv) 40 mg IV Q24H [facility] Last Admin: 12/13/19 08:47 Dose: 40 mg Documented by: Sodium Chloride (Saline Flush) 10 ml FLUSH ASDIRECTED PRN PRN Reason: Keep Vein Open Last Admin: 12/11/19 13:38 Dose: 10 ml Documented by: Sodium Chloride (Saline Flush) 2.5 ml FLUSH ASDIRECTED PRN PRN Reason: Keep Vein Open Last Admin: 12/12/19 15:55 Dose: 2.5 ml Documented by: Discontinued Medications Dextrose/Water (Dextrose 50% In Water) 25 ml IVPUSH ONETIME ONE Stop: 12/12/19 21:44 Last Admin: 12/12/19 21:57 Dose: 25 ml Documented by: Haloperidol Lactate (Haldol) 5 mg IM ONETIME ONE Stop: 12/11/19 11:50 Last Admin: 12/11/19 12:45 Dose: 5 mg Documented by: Lactated Ringer's (Ringers, Lactated) 1,000 mls @ 999 mls/hr IV .BOLUS ONE Stop: 12/11/19 12:46 Last Admin: 12/11/19 12:45 Dose: 999 mls/hr Documented by: Pantoprazole Sodium 40 mg/ (Sodium Chloride) 10 mls @ 300 mls/hr IV NOW ONE Stop: 12/11/19 11:47 Last Admin: 12/11/19 12:45 Dose: 300 mls/hr Documented by: Sodium Chloride (Normal Saline) 1,000 mls @ 999 mls/hr IV .Bolus ONE Stop: 12/11/19 13:50 Last Admin: 12/11/19 13:36 Dose: 999 mls/hr Documented by: Sodium Chloride (Normal Saline) 1,000 mls @ 999 mls/hr IV .Bolus ONE Stop: 12/11/19 16:12 Last Admin: 12/11/19 15:19 Dose: 999 mls/hr Documented by: Potassium Chloride 20 meq/ (Premix) 50 mls @ 25 mls/hr IV ONETIME ONE Stop: 12/12/19 07:08 Last Admin: 12/12/19 06:35 Dose: 25 mls/hr Documented by: Magnesium Sulfate (Magnesium Sulfate In Water Premix) 2 gm in 50 mls @ 50 mls/hr IV ONETIME ONE Stop: 12/12/19 06:14 Last Admin: 12/12/19 05:31 Dose: 50 mls/hr Documented by: Potassium Chloride 20 meq/ (Premix) 50 mls @ 25 mls/hr IV ONETIME ONE Stop: 12/12/19 11:57 Last Admin: 12/12/19 10:51 Dose: 25 mls/hr Documented by: Lactated Ringer's (Ringers, Lactated) 1,000 mls @ 999 mls/hr IV .BOLUS ONE Stop: 12/12/19 15:30 Last Admin: 12/13/19 10:52 Dose: Not Given Documented by: Lactated Ringer's (Ringers, Lactated) 500 mls @ 499.445 mls/hr IV .BOLUS ONE Stop: 12/12/19 15:30 Last Admin: 12/12/19 14:40 Dose: 499.445 mls/hr Documented by: Lactated Ringer's (Ringers, Lactated) 1,000 mls @ 999 mls/hr IV .BOLUS ONE Stop: 12/12/19 16:39 Last Admin: 12/12/19 16:17 Dose: 999 mls/hr Documented by: Influenza Virus Vaccine (Fluzone Quad Syringe) 60 mcg IM .ONCE ONE Stop: 12/12/19 09:01 Insulin Aspart (Novolog) 4 unit SUBCUT ONETIME ONE Stop: 12/11/19 19:58 Last Admin: 12/11/19 20:12 Dose: 4 units Documented by: Insulin Aspart (Novolog) 10 unit SUBCUT ONETIME ONE Stop: 12/11/19 21:20 Last Admin: 12/11/19 21:34 Dose: 10 units Documented by: Insulin Aspart (Novolog) 15 unit SUBCUT ONETIME ONE Stop: 12/12/19 14:28 Last Admin: 12/12/19 14:36 Dose: 15 units Documented by: Insulin Aspart (Novolog) 20 unit SUBCUT ONETIME ONE Stop: 12/12/19 15:10 Last Admin: 12/12/19 15:14 Dose: 20 units Documented by: Insulin Aspart (Novolog) 10 unit SUBCUT ONETIME ONE Stop: 12/12/19 15:57 Last Admin: 12/12/19 16:17 Dose: 10 units Documented by: Insulin Detemir (Levemir) 10 unit SUBCUT BEDTIME [facility] Last Admin: 12/11/19 23:09 Dose: 10 units Documented by: Insulin Detemir (Levemir) 10 unit SUBCUT ONETIME ONE Stop: 12/12/19 15:10 Last Admin: 12/12/19 15:14 Dose: 10 units Documented by: Insulin Human Regular (Novolin R) 10 unit SUBCUT ONETIME ONE; Protocol Stop: 12/12/19 15:54 Last Admin: 12/13/19 10:52 Dose: Not Given Documented by: Magnesium Oxide (Magnesium Oxide) 400 mg PO ONETIME ONE Stop: 12/12/19 09:59 Last Admin: 12/12/19 10:50 Dose: 400 mg Documented by: Magnesium Sulfate (Magnesium Sulfate In Water Premix) 2 gm IV NOW STA Stop: 12/13/19 08:02 Last Admin: 12/13/19 08:50 Dose: 2 gm Documented by: Metoclopramide HCl (Reglan) 10 mg IVPUSH ONETIME ONE Stop: 12/11/19 16:23 Last Admin: 12/11/19 16:33 Dose: 10 mg Documented by: Morphine Sulfate (Morphine) 1 mg IVPUSH Q2H PRN PRN Reason: Pain (severe 7-10) Stop: 12/12/19 18:06 Last Admin: 12/12/19 02:45 Dose: 1 mg Documented by: Ondansetron HCl (Zofran) 4 mg IVPUSH ONETIME ONE Stop: 12/11/19 15:17 Last Admin: 12/11/19 15:19 Dose: 4 mg Documented by:
== END 2019-12-13 11:50 | disposition home or self-care (01) ==
LOC: MW.ED 10:52 → MW.MS 17:11
PROVIDERS: ADMIT Student in an Organized Health Care Education/Training Program; ATTEND Student in an Organized Health Care Education/Training Program
DX: E10.43 Type 1 diabetes mellitus with diabetic autonomic (poly)neuropathy (principal); K31.84 Gastroparesis; Z79.82 Long term (current) use of aspirin; Z79.899 Other long term (current) drug therapy; I25.10 Atherosclerotic heart disease of native coronary artery without angina pectoris; Z95.1 Presence of aortocoronary bypass graft; Z20.828 Contact with and (suspected) exposure to other viral communicable diseases; Z23 Encounter for immunization; I50.9 Heart failure, unspecified; E78.00 Pure hypercholesterolemia, unspecified; I13.0 Hypertensive heart and chronic kidney disease with heart failure and stage 1 through stage 4 chronic kidney disease, or unspecified chronic kidney disease; N18.9 Chronic kidney disease, unspecified; E10.22 Type 1 diabetes mellitus with diabetic chronic kidney disease; F41.9 Anxiety disorder, unspecified; F32.9 Major depressive disorder, single episode, unspecified; I24.9 Acute ischemic heart disease, unspecified; I43 Cardiomyopathy in diseases classified elsewhere; E10.65 Type 1 diabetes mellitus with hyperglycemia; R07.1 Chest pain on breathing; R07.81 Pleurodynia
CPT/HCPCS: 36415; 80048; 80053; 81003; 82009; 82803; 82962; 83605; 83690; 83735; 84100; 84484; 85025; 90686; 93005; 96361; 96365; 96372; 96375; 96376; 99285; A9270; C9113; G0008; G0378; J1630; J1815; J2270; J2405; J2765; J3475; J3480; J7030; J7050; J7120; U0002; 93010; 96374; 99217; 99218; 99225; 99283

== ENCOUNTER 2020-04-24 15:11 | Observation (INO) | payer MEDICARE, MEDICAID ==
[2020-04-24] MEDS ORDERED: Morphine 4 MG/ML Syringe IVPUSH ONE (15:23)
[2020-04-24] MEDS ORDERED: Sodium Chloride 0.9% 1,000 ML IV ONE (15:23)
--- NOTE | 2020-04-24 15:23 | EDM.PDOC ---
ED HPI GENERAL MEDICAL PROBLEM - General Chief Complaint: Chest Pain Stated Complaint: EMS CHEST PAIN Time Seen by Provider: 04/24/20 15:12 Source of Information: Reports: Patient History Limitations: Reports: No Limitations - History of Present Illness INITIAL COMMENTS - FREE TEXT/NARRATIVE: HISTORY AND PHYSICAL: History of present illness: Patient is a 54 year old female who presents to the ED with complaints of chest pain since Friday. He states the pain has been fluctuating in intensity but nothing in particular has made the pain better. Pain is worse with taking in zuly p breathes. He has Nitro available to him, but has not used it at all. 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 He called EMS today because the "pain just wouldn't let up". Nitro and ASA were given [employer] by EMS. Pain went from 10/10 to 3-4/10 after the nitro. Patient has a past medical history of coronary artery disease with stents, history of CABG, HTN, pacemaker, type 1 diabetes, gastroparesis, and chronic renal insufficiency. Patient denies any fever, chills, headache, change in v ision, syncope or near syncope. Denies any back pain, shortness of breath or cough. Denies any abdominal pain, nausea, vomiting, diarrhea, constipation or dysuria. Has not noted any blood in urine or stool. Patient has been eating and drinking appropriately. Review of systems: As per history of present illness and below otherwise all systems reviewed and negative. Past medical history: As per history of present illness and as reviewed below otherwise noncontributory. Surgical history: As per history of present illness and as reviewed below otherwise noncontributory. Social history: See social history for further information Family history: As per history of present illness and as reviewed below otherwise noncontributory. Physical exam: General: Well developed and well nourished 54 year old male. Alert and orientated x 3. Nontoxic in appearance and in no acute distress. Vital signs are stable and have been reviewed by me. Nursing notes were reviewed. HEENT: Atraumatic, normocephalic, pupils equal and reactive bilaterally, negative for conjunctival pallor or scleral icterus, mucous membranes moist, trachea midline. No drooling or trismus noted. No meningeal signs. No hot potato voice noted. Lungs: Clear to auscultation bilaterally. No wheezes, rales, or rhonchi. Anterior mid chest tender. Normal work of breathing, no accessory muscles used. Heart: S1S2, regular rate and rhythm without overt murmur, gallops, or rubs. No JVD. No peripheral edema Abdomen: Soft, nondistended, nontender. Normoactive bowel sounds. Negative for masses or costovertebral tenderness. Skin: Intact, warm, dry. No lesions or rashes noted. Hematologic: No petechiae or purpra. Mucosa appropriate color and normal nail bed color and refill. Extremities: Atraumatic, moves all extremities per self without difficulty or deficits, negative for cords or calf pain. Neurovascular unremarkable. Neuro: Awake, alert, oriented. Cranial nerves II through XII unremarkable. Cerebellum unremarkable. Motor and sensory unremarkable throughout. Exam nonfocal. Psychiatric: Mood and affect are appropriate. Normal thought process. Answering questions appropriately. Notes: *This patient was seen and evaluated during the 2019 SARS-CoV-2 novel coronavirus pandemic period. Community viral transmission is ongoing at time of this encounter and the emergency department is operating under pandemic response procedures. No significant findings today. CXR is unremarkable. VSS. I have talked with the patient about today's findings, in addition to providing specific details for plan of care. Reassessment at the time of disposition demonstrates that the patient is in no acute distress. Dr. Whitlock (with Dr. Meehan) has come down to evaluate this patient. Requesting a second troponin to be done before admission. Repeat troponin is negative. Patient's vital signs have remained stable. Patient reports he has chronic chest pain, which fluctuates from 4-8 at any given time. He states the pain is tolerable and declines additional pain medication. Will admit for observation with telemetry. Diagnostics: CBC, CMP, Troponin, EKG, CXR Therapeutics: NS @ 100mls/hr, Morphine Impression: Chest Pain Plan: Observation admission to Med/Surg with telemetry Definitive disposition and diagnosis as appropriate pending reevaluation and review of above. Duration: Day(s): Chest Pain Score (Numeric/FACES): 6 - Related Data Allergies Allergy/AdvReac Type Severity Reaction Status Date / Time No Known Allergies Allergy Verified 04/24/20 15:13 Home Meds: Home Meds Insulin Aspart [NovoLOG] See Protocol SUBCUT TIDMEALS #0 12/25/16 [Rx] Metoprolol Tartrate 50 mg PO BID 01/05/19 [History] Topiramate 25 mg PO BID 01/05/19 [History] atorvaSTATin [Lipitor] 10 mg PO DAILY 01/05/19 [History] Insulin Lispro [Humalog Kwikpen U-100] 1 unit SQ ASDIRECTED 06/11/19 [History] Losartan [Cozaar] 50 mg PO DAILY 06/11/19 [History] Apixaban [Eliquis] 5 mg PO BID 11/02/19 [History] DULoxetine [Cymbalta] 30 mg PO DAILY 11/02/19 [History] Ranolazine [Ranolazine ER] 500 mg PO BID 11/02/19 [History] Pantoprazole Sodium [Protonix] 40 mg PO BID #60 tablet.dr 11/03/19 [Rx] Amiodarone [Cordarone] 200 mg PO BID 11/27/19 [History] Aspirin 81 mg PO DAILY 11/27/19 [History] Clopidogrel [Plavix] 75 mg PO DAILY 11/27/19 [History] Isosorbide Mononitrate [Isosorbide Mononitrate ER] 30 mg PO DAILY 11/27/19 [History] Potassium Chloride 10 meq PO BID 11/27/19 [History] Sucralfate [Carafate] 1 gm PO QID 11/27/19 [History] Acetaminophen [Mapap] 500 mg PO BID PRN #60 tablet 12/02/19 [Rx] Pantoprazole [ProTONIX] 40 mg PO DAILY #30 tab.cr 12/02/19 [Rx] Tamsulosin [Flomax] 0.4 mg PO BEDTIME #30 cap.er 12/02/19 [Rx] Metoclopramide [Reglan] 5 mg PO TIDAC #30 tab 12/13/19 [Rx] Past Medical History - Past Health History Medical/Surgical History: Denies Medical/Surgical History HEENT History: Reports: None Cardiovascular History: Reports: CAD, Heart Failure, High Cholesterol, Hypertension, [place], Pacemaker Other Cardiovascular History: Valve Problem Respiratory History: Reports: Other (See Below) Other Respiratory History: recently diagnosed with nodules in lungs Gastrointestinal History: Reports: None Genitourinary History: Reports: Chronic Renal Insuffiency Musculoskeletal History: Reports: Back Pain, Chronic Neurological History: Reports: Neuropathy, Diabetic, Other (See Below) Other Neuro History: Intracranial hypertension Psychiatric History: Reports: Anxiety, Depression Endocrine/Metabolic History: Reports: Diabetes, Type I Insulin Pump Model and Line Closer: None Hematologic History: Reports: None Immunologic History: Reports: None Oncologic (Cancer) History: Reports: None Dermatologic History: Reports: None - Infectious Disease History Infectious Disease History: Reports: None - Past Surgical History Head Surgeries/Procedures: Reports: None HEENT Surgical History: Reports: Oral Surgery Cardiovascular Surgical History: Reports: AICD, Coronary Artery Stent, Other (See Below) Respiratory Surgical History: Reports: None GI Surgical History: Reports: Cholecystectomy Male Surgical History: Reports: None Endocrine Surgical History: Reports: None Neurological Surgical History: Reports: None Musculoskeletal Surgical History: Reports: None Oncologic Surgical History: Reports: None Dermatological Surgical History: Reports: None Social & Family History - Family History Family Medical History: No Pertinent Family History - Caffeine Use Caffeine Use: Reports: None - Living Situation & Occupation Living situation: Reports: , with Spouse, with Family (2 kids) Occupation: Unemployed ED ROS GENERAL - Review of Systems Review Of Systems: Comprehensive ROS is negative, except as noted in HPI. ED EXAM, GENERAL - Physical Exam Exam: See Below (See dictation) Course - Vital Signs Last Recorded V/S: Last Vital Signs Temp 97.5 F 04/24/20 15:14 Pulse 94 04/24/20 17:43 Resp 16 04/24/20 17:43 BP 140/97 H 04/24/20 17:43 Pulse Ox 95 04/24/20 17:43 - Orders/Labs/Meds Orders: Active Orders 24 hr Category Date Time Status Admission Status [Patient Status] [ADT] Stat ADT 04/24/20 16:31 Active EKG Documentation Completion [RC] STAT Care 04/24/20 15:12 Active Sodium Chloride 0.9% [Normal Saline] 1,000 ml Med 04/24/20 15:23 Active IV STAT Medication Orders Sodium Chloride (Normal Saline) 1,000 mls @ 100 mls/hr IV STAT ONE Stop: 04/25/20 01:22 Last Admin: 04/24/20 15:29 Dose: 100 mls/hr Documented by: [email or web address] Labs: Laboratory Tests 04/24/20 04/24/20 04/24/20 Range/Units 15:22 15:22 15:22 WBC 3.73 L (4.0-11.0) K/uL RBC 5.24 (4.50-5.90) M/uL Hgb 17.2 H (13.0-17.0) g/dL Hct 48.2 (38.0-50.0) % MCV 92.0 (80.0-98.0) fL MCH 32.8 H (27.0-32.0) pg MCHC 35.7 (31.0-37.0) g/dL RDW Std Deviation 43.1 (28.0-62.0) fl RDW Coeff of Charles 13 (11.0-15.0) % Plt Count 189 (150-400) K/uL MPV 9.90 (7.40-12.00) fL Neut % (Auto) 51.8 (48.0-80.0) % Lymph % (Auto) 38.6 (16.0-40.0) % [place] % (Auto) 7.5 (0.0-15.0) % Eos % (Auto) 1.3 (0.0-7.0) % Baso % (Auto) 0.8 (0.0-1.5) % Neut # (Auto) 1.9 (1.4-5.7) K/uL Lymph # (Auto) 1.4 (0.6-2.4) K/uL [place] # (Auto) 0.3 (0.0-0.8) K/uL Eos # (Auto) 0.1 (0.0-0.7) K/uL Baso # (Auto) 0.0 (0.0-0.1) K/uL Nucleated RBC % 0.0 /100WBC Nucleated RBCs # 0 K/uL D-Dimer, Quantitative 0.26 (0.0-0.50) mg/L FEU Sodium 141 (136-148) mmol/L Potassium 3.7 (3.5-5.1) mmol/L Chloride 104 (98-107) mmol/L Carbon Dioxide 22.8 (21.0-32.0) mmol/L BUN 14 (7.0-18.0) mg/dL Creatinine 0.8 (0.8-1.3) mg/dL Est Cr Clr Drug Dosing 107.73 mL/min Estimated GFR (MDRD) > 60.0 ml/min Glucose 253 H (74-106) mg/dL Calcium 8.5 (8.5-10.1) mg/dL Total Bilirubin 1.4 H (0.2-1.0) mg/dL AST 82 H (15-37) IU/L ALT 94 H (14-63) IU/L Alkaline Phosphatase 138 H (46-116) U/L Troponin I < 0.050 (0.000-0.056) ng/mL Total Protein 7.1 (6.4-8.2) g/dL Albumin 3.8 (3.4-5.0) g/dL Globulin 3.3 (2.6-4.0) g/dL Albumin/Globulin Ratio 1.2 (0.9-1.6) SARS-CoV-2 RNA (ABBIE) (NEGATIVE) 04/24/20 04/24/20 Range/Units 15:56 18:27 WBC (4.0-11.0) K/uL RBC (4.50-5.90) M/uL Hgb (13.0-17.0) g/dL Hct (38.0-50.0) % MCV (80.0-98.0) fL MCH (27.0-32.0) pg MCHC (31.0-37.0) g/dL RDW Std Deviation (28.0-62.0) fl RDW Coeff of Charles (11.0-15.0) % Plt Count (150-400) K/uL MPV (7.40-12.00) fL Neut % (Auto) (48.0-80.0) % Lymph % (Auto) (16.0-40.0) % [place] % (Auto) (0.0-15.0) % Eos % (Auto) (0.0-7.0) % Baso % (Auto) (0.0-1.5) % Neut # (Auto) (1.4-5.7) K/uL Lymph # (Auto) (0.6-2.4) K/uL [place] # (Auto) (0.0-0.8) K/uL Eos # (Auto) (0.0-0.7) K/uL Baso # (Auto) (0.0-0.1) K/uL Nucleated RBC % /100WBC Nucleated RBCs # K/uL D-Dimer, Quantitative (0.0-0.50) mg/L FEU Sodium (136-148) mmol/L Potassium (3.5-5.1) mmol/L Chloride (98-107) mmol/L Carbon Dioxide (21.0-32.0) mmol/L BUN (7.0-18.0) mg/dL Creatinine (0.8-1.3) mg/dL Est Cr Clr Drug Dosing mL/min Estimated GFR (MDRD) ml/min Glucose (74-106) mg/dL Calcium (8.5-10.1) mg/dL Total Bilirubin (0.2-1.0) mg/dL AST (15-37) IU/L ALT (14-63) IU/L Alkaline Phosphatase (46-116) U/L Troponin I < 0.050 (0.000-0.056) ng/mL Total Protein (6.4-8.2) g/dL Albumin (3.4-5.0) g/dL Globulin (2.6-4.0) g/dL Albumin/Globulin Ratio (0.9-1.6) SARS-CoV-2 RNA (ABBIE) NEGATIVE (NEGATIVE) Meds: Medications Generic Name Dose Route Start Last Admin Trade Name Freq PRN Reason Stop Dose Admin Sodium Chloride 1,000 mls @ 100 mls/hr 04/24/20 15:23 04/24/20 15:29 Normal Saline IV 04/25/20 01:22 100 mls/hr STAT ONE Administration Discontinued Medications Generic Name Dose Route Start Last Admin Trade Name Freq PRN Reason Stop Dose Admin Morphine Sulfate 4 mg 04/24/20 15:23 04/24/20 15:29 Morphine IVPUSH 04/24/20 15:24 4 mg ONETIME ONE Administration Departure - Departure Time of Disposition: 18:58 Disposition: Refer to Observation Clinical Impression: Chest pain, rule out acute myocardial infarction Referrals: Elder Diez MD [Primary Care Provider] - Forms: ED Department Discharge Sepsis Event Note (ED) - Focused Exam Vital Signs: Vital Signs Temp Pulse Resp BP Pulse Ox 04/24/20 17:43 94 16 140/97 H 95 04/24/20 17:12 91 18 120/80 96 04/24/20 16:42 92 18 136/83 94 L 04/24/20 16:12 90 17 129/87 98 04/24/20 15:42 94 17 121/83 96 04/24/20 15:14 97.5 F 85 18 135/76 99 - My Orders Last 24 Hours: My Active Orders 04/24/20 15:12 EKG Documentation Completion [RC] STAT 04/24/20 15:23 Sodium Chloride 0.9% [Normal Saline] 1,000 ml IV STAT 04/24/20 16:31 Admission Status [Patient Status] [ADT] Stat - Assessment/Plan Last 24 Hours: My Active Orders 04/24/20 15:12 EKG Documentation Completion [RC] STAT 04/24/20 15:23 Sodium Chloride 0.9% [Normal Saline] 1,000 ml IV STAT 04/24/20 16:31 Admission Status [Patient Status] [ADT] Stat
--- NOTE | 2020-04-24 15:28 | PCM.EKG ---
#1 Interpretation EKG Date: 04/24/20 Time: 15:04 Rhythm: Other (atrial-sensed ventricular-paced) Rate (Beats/Min): 94 Rulo: Normal P-Wave: Present QRS: Normal ST-T: Normal QT: Normal NV/PQ Interval: 56 EKG Interpretation Comments: no acute ischemic changes; paced rhythm
--- NOTE | 2020-04-24 15:52 | CR ---
INDICATION: Chest pain TECHNIQUE: Chest 1 view. COMPARISON: 11/27/2019 FINDINGS: Cardiovascular and mediastinum: Heart size and vasculature are normal in caliber and appearance. Mediastinum is within normal limits. Left-sided transvenous pacer device. Lungs and pleural space: Lungs are clear. No sign of infiltrate or mass. No sign of pleural effusion. No pneumothorax. Bones and soft tissues: No significant findings. IMPRESSION: Unremarkable chest. Dictated by Jovan Najera MD @ Apr 24 2020 3:50PM Signed by Dr. Jovan Najera @ Apr 24 2020 3:50PM
[2020-04-24 15:55] LABS: BLOOD UREA NITROGEN,BUN 14 mg/dL (7.0-18.0); CARBON DIOXIDE,CO2 22.8 mmol/L (21.0-32.0); CHLORIDE,CL 104 mmol/L (98-107); GLUCOSE RANDOM 253 mg/dL (74-106); POTASSIUM,K 3.7 mmol/L (3.5-5.1); SODIUM,NA 141 mmol/L (136-148)
[2020-04-24] MEDS ORDERED: Acetaminophen 325 MG Tab PO PRN (19:14)
--- NOTE | 2020-04-24 19:23 | PCM.HP.2 ---
<Norberto Ritchie M - Last Filed: 04/24/20 19:50> H&P History of Present Illness - General Date of Service: 04/24/20 Admit Problem/Dx: Admission Diagnosis/Problem Admission Diagnosis/Problem Chest pain, rule out acute myocardial infarction Source of Information: Patient History Limitations: Reports: No Limitations - History of Present Illness Initial Comments - Free Text/Narative: 54-year-old male presents complaining of chest pain. He has a PMH of cardiomyopathy with ICD, systolic HF, s/p CABG, DM type 1, HTN, gastroparesis, syncope and postural hypotension. Patient reports having left sided chest pain that started approximately 3 days ago. It is described as being sharp in nature, constant but will intensify at times, aggravated by lifting things and alleviated by sitting still. The pain will radiate to the center of his chest. He has not felt any shocks from his AICD. He took nitro at home which helped a bit. He has not had any fever, chills, sore throat, cough, SOB, nausea, vomiting, abdominal pain, diarrhea, blood in stool, blood in urine, numbness or tingling in extremities. In the ER, EKG showed paced rhythm with no acute ischemic changes. Troponin was negative x 2. CXR was negative. COVID-19 test negative. Patient given IV morphine 4 mg x1. He was admitted for further evaluation and treatment. Chest Pain Score (Numeric/FACES): 6 - Related Data Allergies/Adverse Reactions: Allergies Allergy/AdvReac Type Severity Reaction Status Date / Time No Known Allergies Allergy Verified 04/24/20 15:13 Home Medications: Home Meds Insulin Aspart [NovoLOG] See Protocol SUBCUT TIDMEALS #0 12/25/16 [Rx] Metoprolol Tartrate 50 mg PO BID 01/05/19 [History] Topiramate 25 mg PO BID 01/05/19 [History] atorvaSTATin [Lipitor] 10 mg PO DAILY 01/05/19 [History] Insulin Lispro [Humalog Kwikpen U-100] 1 unit SQ ASDIRECTED 06/11/19 [History] Losartan [Cozaar] 50 mg PO DAILY 06/11/19 [History] Apixaban [Eliquis] 5 mg PO BID 11/02/19 [History] DULoxetine [Cymbalta] 30 mg PO DAILY 11/02/19 [History] Ranolazine [Ranolazine ER] 500 mg PO BID 11/02/19 [History] Pantoprazole Sodium [Protonix] 40 mg PO BID #60 tablet.dr 11/03/19 [Rx] Amiodarone [Cordarone] 200 mg PO BID 11/27/19 [History] Aspirin 81 mg PO DAILY 11/27/19 [History] Clopidogrel [Plavix] 75 mg PO DAILY 11/27/19 [History] Isosorbide Mononitrate [Isosorbide Mononitrate ER] 30 mg PO DAILY 11/27/19 [History] Potassium Chloride 10 meq PO BID 11/27/19 [History] Sucralfate [Carafate] 1 gm PO QID 11/27/19 [History] Acetaminophen [Mapap] 500 mg PO BID PRN #60 tablet 12/02/19 [Rx] Pantoprazole [ProTONIX] 40 mg PO DAILY #30 tab.cr 12/02/19 [Rx] Tamsulosin [Flomax] 0.4 mg PO BEDTIME #30 cap.er 12/02/19 [Rx] Metoclopramide [Reglan] 5 mg PO TIDAC #30 tab 12/13/19 [Rx] Past Medical History - Past Health History Medical/Surgical History: Denies Medical/Surgical History HEENT History: Reports: None Cardiovascular History: Reports: CAD, Heart Failure, High Cholesterol, Hypertension, [place], Pacemaker Other Cardiovascular History: Valve Problem Respiratory History: Reports: Other (See Below) Other Respiratory History: recently diagnosed with nodules in lungs Gastrointestinal History: Reports: None Genitourinary History: Reports: Chronic Renal Insuffiency Musculoskeletal History: Reports: Back Pain, Chronic Neurological History: Reports: Neuropathy, Diabetic, Other (See Below) Other Neuro History: Intracranial hypertension Psychiatric History: Reports: Anxiety, Depression Endocrine/Metabolic History: Reports: Diabetes, Type I Insulin Pump Model and Abrasive Grinder: None Hematologic History: Reports: None Immunologic History: Reports: None Oncologic (Cancer) History: Reports: None Dermatologic History: Reports: None - Infectious Disease History Infectious Disease History: Reports: None - Past Surgical History Head Surgeries/Procedures: Reports: None HEENT Surgical History: Reports: Oral Surgery Cardiovascular Surgical History: Reports: AICD, Coronary Artery Stent, Other (See Below) Respiratory Surgical History: Reports: None GI Surgical History: Reports: Cholecystectomy Male Surgical History: Reports: None Endocrine Surgical History: Reports: None Neurological Surgical History: Reports: None Musculoskeletal Surgical History: Reports: None Oncologic Surgical History: Reports: None Dermatological Surgical History: Reports: None Social & Family History - Family History Family Medical History: No Pertinent Family History - Tobacco Use Tobacco Use Status *Q: Never Tobacco User - Caffeine Use Caffeine Use: Reports: None - Recreational Drug Use Recreational Drug Use: No - Living Situation & Occupation Living situation: Reports: , with Spouse, with Family (2 kids) Occupation: Unemployed H&P Review of Systems - Review of Systems: Review Of Systems: Comprehensive ROS is negative, except as noted in HPI. Exam - Exam Exam: See Below - Vital Signs Vital Signs: Last Vital Signs Temp 36.4 C 04/24/20 15:14 Pulse 94 04/24/20 17:43 Resp 16 04/24/20 17:43 BP 140/97 H 04/24/20 17:43 Pulse Ox 95 04/24/20 17:43 Weight: 79.379 kg - Exam General: Alert, Oriented, Cooperative, Mild Distress HEENT: Conjunctiva Clear, EOMI, Hearing Intact, Pupils Equal, Pupils Reactive Lungs: Clear to Auscultation, Normal Respiratory Effort Cardiovascular: Regular Rate, Regular Rhythm GI/Abdominal Exam: Normal Bowel Sounds, Soft, Non-Tender, No Distention Extremities: Normal Inspection, No Pedal Edema Skin: Warm, Dry, Intact Neurological: Cranial Nerves Intact, Strength Equal Bilateral, Normal Speech, Normal Tone Neuro Extensive - Mental Status: Alert, Oriented x3, Normal Mood/Affect Psychiatric: Alert, Normal Affect, Normal Mood - Patient Data Lab Results Last 24 hrs: Laboratory Results - last 24 hr 04/24/20 04/24/20 04/24/20 Range/Units 15:22 15:22 15:22 WBC 3.73 L (4.0-11.0) K/uL RBC 5.24 (4.50-5.90) M/uL Hgb 17.2 H (13.0-17.0) g/dL Hct 48.2 (38.0-50.0) % MCV 92.0 (80.0-98.0) fL MCH 32.8 H (27.0-32.0) pg MCHC 35.7 (31.0-37.0) g/dL RDW Std Deviation 43.1 (28.0-62.0) fl RDW Coeff of Charles 13 (11.0-15.0) % Plt Count 189 (150-400) K/uL MPV 9.90 (7.40-12.00) fL Neut % (Auto) 51.8 (48.0-80.0) % Lymph % (Auto) 38.6 (16.0-40.0) % [place] % (Auto) 7.5 (0.0-15.0) % Eos % (Auto) 1.3 (0.0-7.0) % Baso % (Auto) 0.8 (0.0-1.5) % Neut # (Auto) 1.9 (1.4-5.7) K/uL Lymph # (Auto) 1.4 (0.6-2.4) K/uL [place] # (Auto) 0.3 (0.0-0.8) K/uL Eos # (Auto) 0.1 (0.0-0.7) K/uL Baso # (Auto) 0.0 (0.0-0.1) K/uL Nucleated RBC % 0.0 /100WBC Nucleated RBCs # 0 K/uL D-Dimer, Quantitative 0.26 (0.0-0.50) mg/L FEU Sodium 141 (136-148) mmol/L Potassium 3.7 (3.5-5.1) mmol/L Chloride 104 (98-107) mmol/L Carbon Dioxide 22.8 (21.0-32.0) mmol/L BUN 14 (7.0-18.0) mg/dL Creatinine 0.8 (0.8-1.3) mg/dL Est Cr Clr Drug Dosing 107.73 mL/min Estimated GFR (MDRD) > 60.0 ml/min Glucose 253 H (74-106) mg/dL Calcium 8.5 (8.5-10.1) mg/dL Total Bilirubin 1.4 H (0.2-1.0) mg/dL AST 82 H (15-37) IU/L ALT 94 H (14-63) IU/L Alkaline Phosphatase 138 H (46-116) U/L Troponin I < 0.050 (0.000-0.056) ng/mL Total Protein 7.1 (6.4-8.2) g/dL Albumin 3.8 (3.4-5.0) g/dL Globulin 3.3 (2.6-4.0) g/dL Albumin/Globulin Ratio 1.2 (0.9-1.6) SARS-CoV-2 RNA (ABBIE) (NEGATIVE) 04/24/20 04/24/20 Range/Units 15:56 18:27 WBC (4.0-11.0) K/uL RBC (4.50-5.90) M/uL Hgb (13.0-17.0) g/dL Hct (38.0-50.0) % MCV (80.0-98.0) fL MCH (27.0-32.0) pg MCHC (31.0-37.0) g/dL RDW Std Deviation (28.0-62.0) fl RDW Coeff of Charles (11.0-15.0) % Plt Count (150-400) K/uL MPV (7.40-12.00) fL Neut % (Auto) (48.0-80.0) % Lymph % (Auto) (16.0-40.0) % [place] % (Auto) (0.0-15.0) % Eos % (Auto) (0.0-7.0) % Baso % (Auto) (0.0-1.5) % Neut # (Auto) (1.4-5.7) K/uL Lymph # (Auto) (0.6-2.4) K/uL [place] # (Auto) (0.0-0.8) K/uL Eos # (Auto) (0.0-0.7) K/uL Baso # (Auto) (0.0-0.1) K/uL Nucleated RBC % /100WBC Nucleated RBCs # K/uL D-Dimer, Quantitative (0.0-0.50) mg/L FEU Sodium (136-148) mmol/L Potassium (3.5-5.1) mmol/L Chloride (98-107) mmol/L Carbon Dioxide (21.0-32.0) mmol/L BUN (7.0-18.0) mg/dL Creatinine (0.8-1.3) mg/dL Est Cr Clr Drug Dosing mL/min Estimated GFR (MDRD) ml/min Glucose (74-106) mg/dL Calcium (8.5-10.1) mg/dL Total Bilirubin (0.2-1.0) mg/dL AST (15-37) IU/L ALT (14-63) IU/L Alkaline Phosphatase (46-116) U/L Troponin I < 0.050 (0.000-0.056) ng/mL Total Protein (6.4-8.2) g/dL Albumin (3.4-5.0) g/dL Globulin (2.6-4.0) g/dL Albumin/Globulin Ratio (0.9-1.6) SARS-CoV-2 RNA (ABBIE) NEGATIVE (NEGATIVE) Result Diagrams: 04/24/20 15:22 04/24/20 15:22 Sepsis Event Note - Evaluation Sepsis Screening Result: No Definite Risk - Focused Exam Vital Signs: Vital Signs Temp Pulse Resp BP Pulse Ox 04/24/20 17:43 94 16 140/97 H 95 04/24/20 17:12 91 18 120/80 96 04/24/20 16:42 92 18 136/83 94 L 04/24/20 16:12 90 17 129/87 98 04/24/20 15:42 94 17 121/83 96 04/24/20 15:14 36.4 C 85 18 135/76 99 - Problem List (1) Chest pain, rule out acute myocardial infarction SNOMED Code(s): 06858411 ICD Code: R07.9 - CHEST PAIN, UNSPECIFIED Status: Acute Current Visit: Yes (2) Erosive gastritis SNOMED Code(s): 9948847300032860 ICD Code: K29.60 - OTHER GASTRITIS WITHOUT BLEEDING Status: Acute Current Visit: No (3) Gastroparesis SNOMED Code(s): 877571765 ICD Code: K31.84 - GASTROPARESIS Status: Acute Current Visit: No (4) Cardiomyopathy SNOMED Code(s): 48195820 ICD Code: I42.9 - CARDIOMYOPATHY, UNSPECIFIED Status: Chronic Current Visit: No (5) DM type 1 (diabetes mellitus, type 1) SNOMED Code(s): 58820418 ICD Code: E10.9 - TYPE 1 DIABETES MELLITUS WITHOUT COMPLICATIONS Status: Chronic Current Visit: No Qualifiers: Diabetes mellitus complication status: with hyperglycemia Qualified Code(s): E10.65 - Type 1 diabetes mellitus with hyperglycemia (6) Hx of cardiac pacemaker SNOMED Code(s): 883978048 ICD Code: Z95.0 - PRESENCE OF CARDIAC PACEMAKER Status: Chronic Current Visit: No Problem List Initiated/Reviewed/Updated: Yes Orders Last 24hrs: Active Orders 24 hr Category Date Time Status Admission Status [Patient Status] [ADT] Stat ADT 04/24/20 16:31 Active Antiembolic Devices [RC] PER UNIT ROUTINE Care 04/24/20 19:15 Active EKG Documentation Completion [RC] STAT Care 04/24/20 15:12 Active Oxygen Therapy [RC] PRN Care 04/24/20 19:14 Active Telemetry Monitoring [Cardiac Monitoring] [RC] . Care 04/24/20 19:17 Ordered DIRECTED Up ad Trinity [RC] ASDIRECTED Care 04/24/20 19:14 Active VTE/DVT Education [RC] PER UNIT ROUTINE Care 04/24/20 19:14 Active Vital Signs [RC] Q4H Care 04/24/20 19:14 Active Heart Healthy Diet [DIET] Diet 04/24/20 Dinner Active CBC WITH AUTO DIFF [HEME] AM Lab 04/25/20 05:11 Ordered COMPREHENSIVE METABOLIC PN,CMP [CHEM] AM Lab 04/25/20 05:11 Ordered MAGNESIUM [CHEM] AM Lab 04/25/20 05:11 Ordered PHOSPHORUS [CHEM] AM Lab 04/25/20 05:11 Ordered TROPONIN I [CHEM] Routine Lab 04/24/20 21:30 Ordered Acetaminophen [TylenoL] Med 04/24/20 19:14 Active 650 mg PO Q4H PRN GI Cocktail 20 ML PO x 1 Med 04/24/20 19:17 Ordered Alum Hydrox/Mag Hydrox/Simeth [Mag-Al Plus] 15 ml Lidocaine 2% [Xylocaine 2% Viscous] 5 ml PO ONETIME Metoclopramide [Reglan] Med 04/24/20 19:30 Ordered 10 mg PO Q8H Sequential Compression Device [OM.PC] Per Unit Routine Oth 04/24/20 19:14 Ordered Medication Orders Acetaminophen (Tylenol) 650 mg PO Q4H PRN PRN Reason: Pain (Mild 1-3)/fever Al Hydroxide/Mg Hydroxide 15 (ml/ Lidocaine HCl 5 ml) 0 ml PO ONETIME ONE Stop: 04/24/20 19:18 Metoclopramide HCl (Reglan) 10 mg PO Q8H [place]EPHANIA Assessment/Plan Comment:: Assessment and Plan: 1. Chest pain, ACS rule out: - Admit to med/surg. Patient on telemetry. Will trend troponin. - EKG showed paced rhythm with no acute ischemic changes. 2. Gastritis vs Gastroparesis: - Will order Reglan 10 mg q8 prn and PPI BID. 3. Diabetes mellitus type 1: - ADA diet, accuchecks TIDAC and SSI. Continue home dose of long-acting insulin (lantus 25 units bedtime). 4. Past medical history of cardiomyopathy with ICD, systolic HF, s/p CABG, HTN, syncope and postural hypotension: - Continue home medications. 5. DVT prophylaxis: - SCD's for now. <Beverly Meehan - Last Filed: 04/24/20 22:29> H&P History of Present Illness - General Admit Problem/Dx: Admission Diagnosis/Problem Admission Diagnosis/Problem Chest pain, rule out acute myocardial infarction Exam - Vital Signs Vital Signs: Last Vital Signs Temp 36.1 C 04/24/20 20:17 Pulse 91 04/24/20 21:01 Resp 18 04/24/20 20:17 BP 126/79 04/24/20 21:01 Pulse Ox 97 04/24/20 20:31 - Patient Data Lab Results Last 24 hrs: Laboratory Results - last 24 hr 04/24/20 04/24/20 04/24/20 Range/Units 15:22 15:22 15:22 WBC 3.73 L (4.0-11.0) K/uL RBC 5.24 (4.50-5.90) M/uL Hgb 17.2 H (13.0-17.0) g/dL Hct 48.2 (38.0-50.0) % MCV 92.0 (80.0-98.0) fL MCH 32.8 H (27.0-32.0) pg MCHC 35.7 (31.0-37.0) g/dL RDW Std Deviation 43.1 (28.0-62.0) fl RDW Coeff of Charles 13 (11.0-15.0) % Plt Count 189 (150-400) K/uL MPV 9.90 (7.40-12.00) fL Neut % (Auto) 51.8 (48.0-80.0) % Lymph % (Auto) 38.6 (16.0-40.0) % [place] % (Auto) 7.5 (0.0-15.0) % Eos % (Auto) 1.3 (0.0-7.0) % Baso % (Auto) 0.8 (0.0-1.5) % Neut # (Auto) 1.9 (1.4-5.7) K/uL Lymph # (Auto) 1.4 (0.6-2.4) K/uL [place] # (Auto) 0.3 (0.0-0.8) K/uL Eos # (Auto) 0.1 (0.0-0.7) K/uL Baso # (Auto) 0.0 (0.0-0.1) K/uL Nucleated RBC % 0.0 /100WBC Nucleated RBCs # 0 K/uL D-Dimer, Quantitative 0.26 (0.0-0.50) mg/L FEU Sodium 141 (136-148) mmol/L Potassium 3.7 (3.5-5.1) mmol/L Chloride 104 (98-107) mmol/L Carbon Dioxide 22.8 (21.0-32.0) mmol/L BUN 14 (7.0-18.0) mg/dL Creatinine 0.8 (0.8-1.3) mg/dL Est Cr Clr Drug Dosing 107.73 mL/min Estimated GFR (MDRD) > 60.0 ml/min Glucose 253 H (74-106) mg/dL POC Glucose (60-110) mg/dL Calcium 8.5 (8.5-10.1) mg/dL Total Bilirubin 1.4 H (0.2-1.0) mg/dL AST 82 H (15-37) IU/L ALT 94 H (14-63) IU/L Alkaline Phosphatase 138 H (46-116) U/L Troponin I < 0.050 (0.000-0.056) ng/mL Total Protein 7.1 (6.4-8.2) g/dL Albumin 3.8 (3.4-5.0) g/dL Globulin 3.3 (2.6-4.0) g/dL Albumin/Globulin Ratio 1.2 (0.9-1.6) SARS-CoV-2 RNA (ABBIE) (NEGATIVE) 04/24/20 04/24/20 04/24/20 Range/Units 15:56 18:27 20:42 WBC (4.0-11.0) K/uL RBC (4.50-5.90) M/uL Hgb (13.0-17.0) g/dL Hct (38.0-50.0) % MCV (80.0-98.0) fL MCH (27.0-32.0) pg MCHC (31.0-37.0) g/dL RDW Std Deviation (28.0-62.0) fl RDW Coeff of Charles (11.0-15.0) % Plt Count (150-400) K/uL MPV (7.40-12.00) fL Neut % (Auto) (48.0-80.0) % Lymph % (Auto) (16.0-40.0) % [place] % (Auto) (0.0-15.0) % Eos % (Auto) (0.0-7.0) % Baso % (Auto) (0.0-1.5) % Neut # (Auto) (1.4-5.7) K/uL Lymph # (Auto) (0.6-2.4) K/uL [place] # (Auto) (0.0-0.8) K/uL Eos # (Auto) (0.0-0.7) K/uL Baso # (Auto) (0.0-0.1) K/uL Nucleated RBC % /100WBC Nucleated RBCs # K/uL D-Dimer, Quantitative (0.0-0.50) mg/L FEU Sodium (136-148) mmol/L Potassium (3.5-5.1) mmol/L Chloride (98-107) mmol/L Carbon Dioxide (21.0-32.0) mmol/L BUN (7.0-18.0) mg/dL Creatinine (0.8-1.3) mg/dL Est Cr Clr Drug Dosing mL/min Estimated GFR (MDRD) ml/min Glucose (74-106) mg/dL POC Glucose 213 H (60-110) mg/dL Calcium (8.5-10.1) mg/dL Total Bilirubin (0.2-1.0) mg/dL AST (15-37) IU/L ALT (14-63) IU/L Alkaline Phosphatase (46-116) U/L Troponin I < 0.050 (0.000-0.056) ng/mL Total Protein (6.4-8.2) g/dL Albumin (3.4-5.0) g/dL Globulin (2.6-4.0) g/dL Albumin/Globulin Ratio (0.9-1.6) SARS-CoV-2 RNA (ABBIE) NEGATIVE (NEGATIVE) 04/24/20 Range/Units 21:30 WBC (4.0-11.0) K/uL RBC (4.50-5.90) M/uL Hgb (13.0-17.0) g/dL Hct (38.0-50.0) % MCV (80.0-98.0) fL MCH (27.0-32.0) pg MCHC (31.0-37.0) g/dL RDW Std Deviation (28.0-62.0) fl RDW Coeff of Charles (11.0-15.0) % Plt Count (150-400) K/uL MPV (7.40-12.00) fL Neut % (Auto) (48.0-80.0) % Lymph % (Auto) (16.0-40.0) % [place] % (Auto) (0.0-15.0) % Eos % (Auto) (0.0-7.0) % Baso % (Auto) (0.0-1.5) % Neut # (Auto) (1.4-5.7) K/uL Lymph # (Auto) (0.6-2.4) K/uL [place] # (Auto) (0.0-0.8) K/uL Eos # (Auto) (0.0-0.7) K/uL Baso # (Auto) (0.0-0.1) K/uL Nucleated RBC % /100WBC Nucleated RBCs # K/uL D-Dimer, Quantitative (0.0-0.50) mg/L FEU Sodium (136-148) mmol/L Potassium (3.5-5.1) mmol/L Chloride (98-107) mmol/L Carbon Dioxide (21.0-32.0) mmol/L BUN (7.0-18.0) mg/dL Creatinine (0.8-1.3) mg/dL Est Cr Clr Drug Dosing mL/min Estimated GFR (MDRD) ml/min Glucose (74-106) mg/dL POC Glucose (60-110) mg/dL Calcium (8.5-10.1) mg/dL Total Bilirubin (0.2-1.0) mg/dL AST (15-37) IU/L ALT (14-63) IU/L Alkaline Phosphatase (46-116) U/L Troponin I < 0.050 (0.000-0.056) ng/mL Total Protein (6.4-8.2) g/dL Albumin (3.4-5.0) g/dL Globulin (2.6-4.0) g/dL Albumin/Globulin Ratio (0.9-1.6) SARS-CoV-2 RNA (ABBIE) (NEGATIVE) Result Diagrams: 04/24/20 15:22 04/24/20 15:22 Sepsis Event Note - Focused Exam Vital Signs: Vital Signs Temp Pulse Pulse Resp BP BP Pulse Ox 04/24/20 21:01 91 126/79 04/24/20 20:31 04/24/20 20:17 36.1 C 91 18 126/79 97 04/24/20 17:43 94 16 140/97 H 95 04/24/20 17:12 91 18 120/80 96 04/24/20 16:42 92 18 136/83 94 L 04/24/20 16:12 90 17 129/87 98 04/24/20 15:42 94 17 121/83 96 04/24/20 15:14 36.4 C 85 18 135/76 99 Pulse Ox 04/24/20 21:01 04/24/20 20:31 97 04/24/20 20:17 04/24/20 17:43 04/24/20 17:12 04/24/20 16:42 04/24/20 16:12 04/24/20 15:42 04/24/20 15:14 Orders Last 24hrs: Active Orders 24 hr Category Date Time Status Admission Status [Patient Status] [ADT] Stat ADT 04/24/20 16:31 Active Antiembolic Devices [RC] PER UNIT ROUTINE Care 04/24/20 19:15 Active Blood Glucose Check, Bedside [RC] TIDAC Care 04/24/20 19:33 Active Oxygen Therapy [RC] PRN Care 04/24/20 19:14 Active Telemetry Monitoring [Cardiac Monitoring] [RC] Q8H Care 04/24/20 19:17 Active Up ad Trinity [RC] ASDIRECTED Care 04/24/20 19:14 Active VTE/DVT Education [RC] PER UNIT ROUTINE Care 04/24/20 19:14 Active Vital Signs [RC] Q4H Care 04/24/20 19:14 Active ADA Diabetic [[employer] [employer] Diet] [DIET Diet 04/24/20 Dinner Active ] CBC WITH AUTO DIFF [HEME] AM Lab 04/25/20 05:11 Ordered COMPREHENSIVE METABOLIC PN,CMP [CHEM] AM Lab 04/25/20 05:11 Ordered MAGNESIUM [CHEM] AM Lab 04/25/20 05:11 Ordered PHOSPHORUS [CHEM] AM Lab 04/25/20 05:11 Ordered Acetaminophen [TylenoL] Med 04/24/20 19:14 Active 650 mg PO Q4H PRN Aspirin Med 04/25/20 09:00 Active 81 mg PO DAILY Clopidogrel [Plavix] Med 04/25/20 09:00 Active 75 mg PO DAILY DULoxetine [Cymbalta] Med 04/25/20 09:00 Active 30 mg PO DAILY Dextrose 50% in Water Med 04/24/20 19:33 Active 50 ml IV ASDIRECTED PRN Glucagon,Human Recombinant [GlucaGen] Med 04/24/20 19:33 Active 1 mg IM ASDIRECTED PRN Insulin Aspart [NovoLOG] Med 04/25/20 07:30 Active See Protocol SUBCUT TIDAC Insulin Glarg,Human.Rec.Analog [LantUS Solostar] Med 04/24/20 21:00 Active 25 units SUBCUT BEDTIME Isosorbide Mononitrate [Imdur] Med 04/25/20 09:00 Active 30 mg PO DAILY Losartan [Cozaar] Med 04/25/20 09:00 Active 50 mg PO DAILY Metoclopramide [Reglan] Med 04/24/20 19:57 Active 10 mg PO Q8H PRN Metoprolol Tartrate [Lopressor] Med 04/24/20 21:00 Active 50 mg PO BID Pantoprazole [ProTONIX] Med 04/24/20 19:32 Active 40 mg PO BIDAC Topiramate [Topamax] Med 04/24/20 21:00 Active 25 mg PO BID atorvaSTATin [Lipitor] Med 04/25/20 09:00 Active 10 mg PO DAILY Sequential Compression Device [OM.PC] Per Unit Routine Oth 04/24/20 19:14 Ordered Code Status [Resuscitation Status] Routine Resus Stat 04/24/20 19:49 Ordered Medication Orders Acetaminophen (Tylenol) 650 mg PO Q4H PRN PRN Reason: Pain (Mild 1-3)/fever Aspirin (Aspirin) 81 mg PO DAILY [facility] Atorvastatin Calcium (Lipitor) 10 mg PO DAILY [place] Clopidogrel Bisulfate (Plavix) 75 mg PO DAILY [facility] Dextrose/Water (Dextrose 50% In Water) 50 ml IV ASDIRECTED PRN PRN Reason: Hypoglycemia Duloxetine HCl (Cymbalta) 30 mg PO DAILY [facility] Glucagon (Glucagen) 1 mg IM ASDIRECTED PRN PRN Reason: Hypoglycemia Insulin Aspart (Novolog) 0 unit SUBCUT TIDAC [facility]; Protocol Insulin Glargine (Lantus Solostar) 25 units SUBCUT BEDTIME [facility] Last Admin: 04/24/20 21:03 Dose: 25 units Documented by: MIMA Isosorbide Mononitrate (Imdur) 30 mg PO DAILY [facility] Losartan Potassium (Cozaar) 50 mg PO DAILY [facility] Metoclopramide HCl (Reglan) 10 mg PO Q8H PRN PRN Reason: Nausea Metoprolol Tartrate (Lopressor) 50 mg PO BID [facility] Last Admin: 04/24/20 21:01 Dose: 50 mg Documented by: MIMA Pantoprazole Sodium (Protonix) 40 mg PO BIDAC [facility] Last Admin: 04/24/20 20:59 Dose: 40 mg Documented by: MIMA Topiramate (Topamax) 25 mg PO BID [facility] Last Admin: 04/24/20 20:59 Dose: 25 mg Documented by: MIMA Assessment/Plan Comment:: I performed a history and physical exam of the patient and discussed management with resident. I have reviewed the residents note and agree with documented findings and plan unless otherwise specified in my note.
[2020-04-24] MEDS ORDERED: Metoclopramide 10 MG Tab PO SCH (19:30)
[2020-04-24] MEDS ORDERED: Alum Hydrox/Mag Hydrox/Simeth 15 ML, Lidocaine 2% 5 ML PO ONE ×2 (19:30)
[2020-04-24] MEDS ORDERED: 50% Dextrose in Water 50 ML Syringe IV PRN (19:33)
[2020-04-24] MEDS ORDERED: Glucagon,Human Recombinant 1 MG Vial IM PRN (19:33)
[2020-04-24] MEDS ORDERED: Metoclopramide 10 MG Tab PO PRN (19:57)
[2020-04-24] MEDS: Pantoprazole 40 MG Tab.CR PO SCH (20:59)
[2020-04-24] MEDS: Topiramate 50 MG Tab PO SCH (20:59)
[2020-04-24] MEDS ORDERED: Amiodarone 200 MG Tab PO SCH (21:00)
[2020-04-24] MEDS ORDERED: Tamsulosin 0.4 MG Cap.ER PO SCH (21:00)
[2020-04-24] MEDS ORDERED: Apixaban 5 MG Tab PO SCH (21:00)
[2020-04-24] MEDS: Metoprolol Tartrate 50 MG Tab PO SCH (21:01)
[2020-04-24] MEDS: Insulin Glargine,Human Rec. Analog 100 Units/ML 3 ML Pen SUBCUT SCH (21:03)
[2020-04-24] MEDS ORDERED: Aspirin 81 MG Tab.Chew PO ONE (22:39)
[2020-04-24] MEDS ORDERED: Clopidogrel 75 MG Tab PO ONE (22:40)
[2020-04-24] MEDS ORDERED: atorvaSTATin 10 MG Tab PO ONE (22:40)
[2020-04-24] MEDS ORDERED: Isosorbide Mononitrate 30 MG Tab.ER PO ONE (22:41)
[2020-04-25 05:50] LABS: BLOOD UREA NITROGEN,BUN 14 mg/dL (7.0-18.0); CARBON DIOXIDE,CO2 23.4 mmol/L (21.0-32.0); CHLORIDE,CL 103 mmol/L (98-107); GLUCOSE RANDOM 302 mg/dL (74-106); POTASSIUM,K 3.7 mmol/L (3.5-5.1); SODIUM,NA 140 mmol/L (136-148)
[2020-04-25] MEDS: Pantoprazole 40 MG Tab.CR PO SCH ×2 (06:30→17:11)
[2020-04-25] MEDS: Clopidogrel 75 MG Tab PO SCH (08:08)
[2020-04-25] MEDS: Aspirin 81 MG Tab.Chew PO SCH (08:08)
[2020-04-25] MEDS: Insulin Aspart 100 Units/ML 3 ML Pen SUBCUT SCH ×3 (08:10→17:51)
[2020-04-25] MEDS ORDERED: Alum Hydrox/Mag Hydrox/Simeth 15 ML, Lidocaine 2% 5 ML PO ONE ×2 (08:15)
[2020-04-25] MEDS: Metoprolol Tartrate 50 MG Tab PO SCH ×2 (08:17→20:26)
[2020-04-25] MEDS: atorvaSTATin 10 MG Tab PO SCH (08:17)
[2020-04-25] MEDS: DULoxetine 30 MG Cap PO SCH (08:17)
--- NOTE | 2020-04-25 08:17 | PCM.PN ---
<Norberto Ritchie - Last Filed: 04/25/20 11:31> - General Info Date of Service: 04/25/20 Subjective Update: Reports chest pain resolved completely for several hours after GI cocktail yesterday evening but has now returned. Tolerating oral diet. No fevers, chills, SOB, nausea or vomiting. - Patient Data Vitals - Most Recent: Last Vital Signs Temp 36.4 C 04/25/20 07:16 Pulse 81 04/25/20 07:16 Resp 16 04/25/20 07:16 BP 125/70 04/25/20 07:16 Pulse Ox 94 L 04/25/20 07:16 Weight - Most Recent: 81.42 kg I&O - Last 24 Hours: Intake & Output 04/24/20 04/25/20 04/25/20 22:59 06:59 14:59 Intake Total 2476 Output Total 600 Balance 1876 Lab Results Last 24 Hours: Laboratory Results - last 24 hr 04/24/20 04/24/20 04/24/20 Range/Units 15:22 15:22 15:22 WBC 3.73 L (4.0-11.0) K/uL RBC 5.24 (4.50-5.90) M/uL Hgb 17.2 H (13.0-17.0) g/dL Hct 48.2 (38.0-50.0) % MCV 92.0 (80.0-98.0) fL MCH 32.8 H (27.0-32.0) pg MCHC 35.7 (31.0-37.0) g/dL RDW Std Deviation 43.1 (28.0-62.0) fl RDW Coeff of Charles 13 (11.0-15.0) % Plt Count 189 (150-400) K/uL MPV 9.90 (7.40-12.00) fL Neut % (Auto) 51.8 (48.0-80.0) % Lymph % (Auto) 38.6 (16.0-40.0) % Starke % (Auto) 7.5 (0.0-15.0) % Eos % (Auto) 1.3 (0.0-7.0) % Baso % (Auto) 0.8 (0.0-1.5) % Neut # (Auto) 1.9 (1.4-5.7) K/uL Lymph # (Auto) 1.4 (0.6-2.4) K/uL Starke # (Auto) 0.3 (0.0-0.8) K/uL Eos # (Auto) 0.1 (0.0-0.7) K/uL Baso # (Auto) 0.0 (0.0-0.1) K/uL Nucleated RBC % 0.0 /100WBC Nucleated RBCs # 0 K/uL D-Dimer, Quantitative 0.26 (0.0-0.50) mg/L FEU Sodium 141 (136-148) mmol/L Potassium 3.7 (3.5-5.1) mmol/L Chloride 104 (98-107) mmol/L Carbon Dioxide 22.8 (21.0-32.0) mmol/L BUN 14 (7.0-18.0) mg/dL Creatinine 0.8 (0.8-1.3) mg/dL Est Cr Clr Drug Dosing 107.73 mL/min Estimated GFR (MDRD) > 60.0 ml/min Glucose 253 H (74-106) mg/dL POC Glucose (60-110) mg/dL Calcium 8.5 (8.5-10.1) mg/dL Phosphorus (2.6-4.7) mg/dL Magnesium (1.8-2.4) mg/dL Total Bilirubin 1.4 H (0.2-1.0) mg/dL AST 82 H (15-37) IU/L ALT 94 H (14-63) IU/L Alkaline Phosphatase 138 H (46-116) U/L Troponin I < 0.050 (0.000-0.056) ng/mL Total Protein 7.1 (6.4-8.2) g/dL Albumin 3.8 (3.4-5.0) g/dL Globulin 3.3 (2.6-4.0) g/dL Albumin/Globulin Ratio 1.2 (0.9-1.6) SARS-CoV-2 RNA (ABBIE) (NEGATIVE) 04/24/20 04/24/20 04/24/20 Range/Units 15:56 18:27 20:42 WBC (4.0-11.0) K/uL RBC (4.50-5.90) M/uL Hgb (13.0-17.0) g/dL Hct (38.0-50.0) % MCV (80.0-98.0) fL MCH (27.0-32.0) pg MCHC (31.0-37.0) g/dL RDW Std Deviation (28.0-62.0) fl RDW Coeff of Charles (11.0-15.0) % Plt Count (150-400) K/uL MPV (7.40-12.00) fL Neut % (Auto) (48.0-80.0) % Lymph % (Auto) (16.0-40.0) % Starke % (Auto) (0.0-15.0) % Eos % (Auto) (0.0-7.0) % Baso % (Auto) (0.0-1.5) % Neut # (Auto) (1.4-5.7) K/uL Lymph # (Auto) (0.6-2.4) K/uL Starke # (Auto) (0.0-0.8) K/uL Eos # (Auto) (0.0-0.7) K/uL Baso # (Auto) (0.0-0.1) K/uL Nucleated RBC % /100WBC Nucleated RBCs # K/uL D-Dimer, Quantitative (0.0-0.50) mg/L FEU Sodium (136-148) mmol/L Potassium (3.5-5.1) mmol/L Chloride (98-107) mmol/L Carbon Dioxide (21.0-32.0) mmol/L BUN (7.0-18.0) mg/dL Creatinine (0.8-1.3) mg/dL Est Cr Clr Drug Dosing mL/min Estimated GFR (MDRD) ml/min Glucose (74-106) mg/dL POC Glucose 213 H (60-110) mg/dL Calcium (8.5-10.1) mg/dL Phosphorus (2.6-4.7) mg/dL Magnesium (1.8-2.4) mg/dL Total Bilirubin (0.2-1.0) mg/dL AST (15-37) IU/L ALT (14-63) IU/L Alkaline Phosphatase (46-116) U/L Troponin I < 0.050 (0.000-0.056) ng/mL Total Protein (6.4-8.2) g/dL Albumin (3.4-5.0) g/dL Globulin (2.6-4.0) g/dL Albumin/Globulin Ratio (0.9-1.6) SARS-CoV-2 RNA (ABBIE) NEGATIVE (NEGATIVE) 04/24/20 04/25/20 04/25/20 Range/Units 21:30 05:02 05:02 WBC 3.55 L (4.0-11.0) K/uL RBC 4.77 (4.50-5.90) M/uL Hgb 15.3 (13.0-17.0) g/dL Hct 44.3 (38.0-50.0) % MCV 92.9 (80.0-98.0) fL MCH 32.1 H (27.0-32.0) pg MCHC 34.5 (31.0-37.0) g/dL RDW Std Deviation 43.6 (28.0-62.0) fl RDW Coeff of Charles 13 (11.0-15.0) % Plt Count 167 (150-400) K/uL MPV 10.10 (7.40-12.00) fL Neut % (Auto) 47.1 L (48.0-80.0) % Lymph % (Auto) 40.8 H (16.0-40.0) % Starke % (Auto) 9.3 (0.0-15.0) % Eos % (Auto) 2.0 (0.0-7.0) % Baso % (Auto) 0.8 (0.0-1.5) % Neut # (Auto) 1.7 (1.4-5.7) K/uL Lymph # (Auto) 1.5 (0.6-2.4) K/uL Starke # (Auto) 0.3 (0.0-0.8) K/uL Eos # (Auto) 0.1 (0.0-0.7) K/uL Baso # (Auto) 0.0 (0.0-0.1) K/uL Nucleated RBC % 0.0 /100WBC Nucleated RBCs # 0 K/uL D-Dimer, Quantitative (0.0-0.50) mg/L FEU Sodium 140 (136-148) mmol/L Potassium 3.7 (3.5-5.1) mmol/L Chloride 103 (98-107) mmol/L Carbon Dioxide 23.4 (21.0-32.0) mmol/L BUN 14 (7.0-18.0) mg/dL Creatinine 0.9 (0.8-1.3) mg/dL Est Cr Clr Drug Dosing 107.40 mL/min Estimated GFR (MDRD) > 60.0 ml/min Glucose 302 H (74-106) mg/dL POC Glucose (60-110) mg/dL Calcium 8.3 L (8.5-10.1) mg/dL Phosphorus 3.5 (2.6-4.7) mg/dL Magnesium 1.8 (1.8-2.4) mg/dL Total Bilirubin 1.2 H (0.2-1.0) mg/dL AST 73 H (15-37) IU/L ALT 89 H (14-63) IU/L Alkaline Phosphatase 120 H (46-116) U/L Troponin I < 0.050 (0.000-0.056) ng/mL Total Protein 6.3 L (6.4-8.2) g/dL Albumin 3.4 (3.4-5.0) g/dL Globulin 2.9 (2.6-4.0) g/dL Albumin/Globulin Ratio 1.2 (0.9-1.6) SARS-CoV-2 RNA (BABIE) (NEGATIVE) Med Orders - Current: Current Medications Acetaminophen (Tylenol) 650 mg PO Q4H PRN PRN Reason: Pain (Mild 1-3)/fever Aspirin (Aspirin) 81 mg PO DAILY [facility] Last Admin: 04/25/20 08:08 Dose: 81 mg Documented by: Atorvastatin Calcium (Lipitor) 10 mg PO DAILY [facility] Clopidogrel Bisulfate (Plavix) 75 mg PO DAILY [facility] Last Admin: 04/25/20 08:08 Dose: 75 mg Documented by: Al Hydroxide/Mg Hydroxide 15 (ml/ Lidocaine HCl 5 ml) 0 ml PO ONETIME ONE Stop: 04/25/20 08:16 Dextrose/Water (Dextrose 50% In Water) 50 ml IV ASDIRECTED PRN PRN Reason: Hypoglycemia Duloxetine HCl (Cymbalta) 30 mg PO DAILY [facility] Glucagon (Glucagen) 1 mg IM ASDIRECTED PRN PRN Reason: Hypoglycemia Insulin Aspart (Novolog) 0 unit SUBCUT TIDAC [facility]; Protocol Last Admin: 04/25/20 08:10 Dose: 6 units Documented by: Insulin Glargine (Lantus Solostar) 25 units SUBCUT BEDTIME [facility] Last Admin: 04/24/20 21:03 Dose: 25 units Documented by: Isosorbide Mononitrate (Imdur) 30 mg PO DAILY [facility] Losartan Potassium (Cozaar) 25 mg PO DAILY [facility] Metoclopramide HCl (Reglan) 10 mg PO Q8H PRN PRN Reason: Nausea Metoprolol Tartrate (Lopressor) 50 mg PO BID [facility] Last Admin: 04/24/20 21:01 Dose: 50 mg Documented by: [facility]oprazole [facility]) [facility] Last Admin: 04/25/20 06:30 Dose: 40 mg Documented by: Topiramate (Topamax) 25 mg PO BID [facility] Last Admin: 04/24/20 20:59 Dose: 25 mg Documented by: Discontinued Medications Amiodarone HCl (Cordarone) 200 mg PO BID [facility] Apixaban (Eliquis) 5 mg PO BID [facility] Aspirin (Aspirin) 81 mg PO ONETIME ONE Stop: 04/24/20 22:40 Last Admin: 04/24/20 23:10 Dose: 81 mg Documented by: Atorvastatin Calcium (Lipitor) 10 mg PO ONETIME ONE Stop: 04/24/20 22:41 Last Admin: 04/24/20 23:10 Dose: 10 mg Documented by: Clopidogrel Bisulfate (Plavix) 75 mg PO ONETIME ONE Stop: 04/24/20 22:41 Last Admin: 04/24/20 23:09 Dose: 75 mg Documented by: Al Hydroxide/Mg Hydroxide 15 (ml/ Lidocaine HCl 5 ml) 0 ml PO ONETIME ONE Stop: 04/24/20 19:31 Last Admin: 04/24/20 19:37 Dose: 20 each Documented by: Sodium Chloride (Normal Saline) 1,000 mls @ 100 mls/hr IV STAT ONE Stop: 04/25/20 01:22 Last Admin: 04/24/20 15:29 Dose: 100 mls/hr Documented by: Isosorbide Mononitrate (Imdur) 30 mg PO ONETIME ONE Stop: 04/24/20 22:42 Last Admin: 04/24/20 23:09 Dose: 30 mg Documented by: Metoclopramide HCl (Reglan) 10 mg PO Q8H [facility] Last Admin: 04/24/20 22:30 Dose: Not Given Documented by: Morphine Sulfate (Morphine) 4 mg IVPUSH ONETIME ONE Stop: 04/24/20 15:24 Last Admin: 04/24/20 15:29 Dose: 4 mg Documented by: Ranolazine (Ranexa) 500 mg PO BID [facility] Tamsulosin HCl (Flomax) 0.4 mg PO BEDTIME [facility] - Exam General: Alert, Oriented, Cooperative, No Acute Distress Lungs: Clear to Auscultation, Normal Respiratory Effort Cardiovascular: Regular Rate, Regular Rhythm GI/Abdominal Exam: Normal Bowel Sounds, Soft, Non-Tender, No Distention Extremities: Normal Inspection, No Pedal Edema Sepsis Event Note - Evaluation Sepsis Screening Result: No Definite Risk - Focused Exam Vital Signs: Vital Signs Temp Pulse Pulse Resp BP BP Pulse Ox 04/25/20 07:16 36.4 C 81 16 125/70 94 L 04/25/20 03:40 36.6 C 72 16 125/71 95 04/24/20 23:09 120/72 04/24/20 23:07 36.6 C 80 18 120/72 97 04/24/20 21:01 91 126/79 04/24/20 20:31 04/24/20 20:17 36.1 C 91 18 126/79 97 Pulse Ox 04/25/20 07:16 04/25/20 03:40 04/24/20 23:09 04/24/20 23:07 04/24/20 21:01 04/24/20 20:31 97 04/24/20 20:17 - Problem List & Annotations (1) Chest pain, rule out acute myocardial infarction SNOMED Code(s): 24668439 Code(s): R07.9 - CHEST PAIN, UNSPECIFIED Status: Acute Current Visit: Yes (2) Erosive gastritis SNOMED Code(s): 8421714303422670 Code(s): K29.60 - OTHER GASTRITIS WITHOUT BLEEDING Status: Acute Current Visit: No (3) Gastroparesis SNOMED Code(s): 339349430 Code(s): K31.84 - GASTROPARESIS Status: Acute Current Visit: No (4) Cardiomyopathy SNOMED Code(s): 53571668 Code(s): I42.9 - CARDIOMYOPATHY, UNSPECIFIED Status: Chronic Current Visit: No (5) DM type 1 (diabetes mellitus, type 1) SNOMED Code(s): 11834918 Code(s): E10.9 - TYPE 1 DIABETES MELLITUS WITHOUT COMPLICATIONS Status: Chronic Current Visit: No Qualifiers: Diabetes mellitus complication status: with hyperglycemia Qualified Code(s): E10.65 - Type 1 diabetes mellitus with hyperglycemia (6) Hx of cardiac pacemaker SNOMED Code(s): 400542466 Code(s): Z95.0 - PRESENCE OF CARDIAC PACEMAKER Status: Chronic Current Visit: No - Problem List Review Problem List Initiated/Reviewed/Updated: Yes - My Orders Last 24 Hours: My Active Orders 04/24/20 Dinner ADA Diabetic [[employer] Diet] [DIET] 04/24/20 19:14 Oxygen Therapy [RC] PRN Up ad Trinity [RC] ASDIRECTED VTE/DVT Education [RC] PER UNIT ROUTINE Vital Signs [RC] Q4H Acetaminophen [TylenoL] 650 mg PO Q4H PRN Sequential Compression Device [OM.PC] Per Unit Routine 04/24/20 19:15 Antiembolic Devices [RC] PER UNIT ROUTINE 04/24/20 19:17 Telemetry Monitoring [Cardiac Monitoring] [RC] Q8H 04/24/20 19:32 Pantoprazole [ProTONIX] 40 mg PO BIDAC 04/24/20 19:33 Blood Glucose Check, Bedside [RC] TIDAC Dextrose 50% in Water 50 ml IV ASDIRECTED PRN Glucagon,Human Recombinant [GlucaGen] 1 mg IM ASDIRECTED PRN 04/24/20 19:49 Code Status [Resuscitation Status] Routine 04/24/20 19:57 Metoclopramide [Reglan] 10 mg PO Q8H PRN 04/24/20 21:00 Insulin Glarg,Human.Rec.Analog [LantUS Solostar] 25 units SUBCUT BEDTIME Metoprolol Tartrate [Lopressor] 50 mg PO BID Topiramate [Topamax] 25 mg PO BID 04/25/20 07:30 Insulin Aspart [NovoLOG] See Protocol SUBCUT TIDAC 04/25/20 08:15 Alum Hydrox/Mag Hydrox/Simeth [Mag-Al Plus] 15 ml Lidocaine 2% [Xylocaine 2% Viscous] 5 ml PO ONETIME 04/25/20 09:00 Aspirin 81 mg PO DAILY Clopidogrel [Plavix] 75 mg PO DAILY DULoxetine [Cymbalta] 30 mg PO DAILY Isosorbide Mononitrate [Imdur] 30 mg PO DAILY Losartan [Cozaar] 25 mg PO DAILY atorvaSTATin [Lipitor] 10 mg PO DAILY - Plan Plan:: Assessment and Plan: 1. Chest pain, ACS rule out: - Patient on telemetry. Troponins negative x 3. - EKG showed paced rhythm with no acute ischemic changes. 2. Gastritis vs Gastroparesis: - Chest pain resolved after receiving GI cocktail yesterday. Will order another GI cocktail this morning. Continue Reglan 10 mg q8 prn and PPI BID. 3. Diabetes mellitus type 1: - ADA diet, accuchecks TIDAC and SSI. Continue lantus 25 units bedtime. 4. Past medical history of cardiomyopathy with ICD, systolic HF, s/p CABG, HTN, syncope and postural hypotension: - Continue home medications. 5. DVT prophylaxis: - SCD's for now. <Beverly Meehan - Last Filed: 04/25/20 22:32> - Patient Data Vitals - Most Recent: Last Vital Signs Temp 36.2 C 04/25/20 15:46 Pulse 83 04/25/20 20:26 Resp 16 04/25/20 15:46 BP 123/78 04/25/20 20:26 Pulse Ox 94 L 04/25/20 15:46 I&O - Last 24 Hours: Intake & Output 04/25/20 04/25/20 04/25/20 06:59 14:59 22:59 Intake Total 2476 736 Output Total 600 550 Balance 1876 186 Lab Results Last 24 Hours: Laboratory Results - last 24 hr 04/25/20 04/25/20 04/25/20 Range/Units 05:02 05:02 06:26 WBC 3.55 L (4.0-11.0) K/uL RBC 4.77 (4.50-5.90) M/uL Hgb 15.3 (13.0-17.0) g/dL Hct 44.3 (38.0-50.0) % MCV 92.9 (80.0-98.0) fL MCH 32.1 H (27.0-32.0) pg MCHC 34.5 (31.0-37.0) g/dL RDW Std Deviation 43.6 (28.0-62.0) fl RDW Coeff of Charles 13 (11.0-15.0) % Plt Count 167 (150-400) K/uL MPV 10.10 (7.40-12.00) fL Neut % (Auto) 47.1 L (48.0-80.0) % Lymph % (Auto) 40.8 H (16.0-40.0) % Starke % (Auto) 9.3 (0.0-15.0) % Eos % (Auto) 2.0 (0.0-7.0) % Baso % (Auto) 0.8 (0.0-1.5) % Neut # (Auto) 1.7 (1.4-5.7) K/uL Lymph # (Auto) 1.5 (0.6-2.4) K/uL Starke # (Auto) 0.3 (0.0-0.8) K/uL Eos # (Auto) 0.1 (0.0-0.7) K/uL Baso # (Auto) 0.0 (0.0-0.1) K/uL Nucleated RBC % 0.0 /100WBC Nucleated RBCs # 0 K/uL Sodium 140 (136-148) mmol/L Potassium 3.7 (3.5-5.1) mmol/L Chloride 103 (98-107) mmol/L Carbon Dioxide 23.4 (21.0-32.0) mmol/L BUN 14 (7.0-18.0) mg/dL Creatinine 0.9 (0.8-1.3) mg/dL Est Cr Clr Drug Dosing 107.40 mL/min Estimated GFR (MDRD) > 60.0 ml/min Glucose 302 H (74-106) mg/dL POC Glucose 255 H (60-110) mg/dL Calcium 8.3 L (8.5-10.1) mg/dL Phosphorus 3.5 (2.6-4.7) mg/dL Magnesium 1.8 (1.8-2.4) mg/dL Total Bilirubin 1.2 H (0.2-1.0) mg/dL AST 73 H (15-37) IU/L ALT 89 H (14-63) IU/L Alkaline Phosphatase 120 H (46-116) U/L Troponin I (0.000-0.056) ng/mL Total Protein 6.3 L (6.4-8.2) g/dL Albumin 3.4 (3.4-5.0) g/dL Globulin 2.9 (2.6-4.0) g/dL Albumin/Globulin Ratio 1.2 (0.9-1.6) 04/25/20 04/25/20 04/25/20 Range/Units 09:27 09:32 11:59 WBC (4.0-11.0) K/uL RBC (4.50-5.90) M/uL Hgb (13.0-17.0) g/dL Hct (38.0-50.0) % MCV (80.0-98.0) fL MCH (27.0-32.0) pg MCHC (31.0-37.0) g/dL RDW Std Deviation (28.0-62.0) fl RDW Coeff of Charles (11.0-15.0) % Plt Count (150-400) K/uL MPV (7.40-12.00) fL Neut % (Auto) (48.0-80.0) % Lymph % (Auto) (16.0-40.0) % Starke % (Auto) (0.0-15.0) % Eos % (Auto) (0.0-7.0) % Baso % (Auto) (0.0-1.5) % Neut # (Auto) (1.4-5.7) K/uL Lymph # (Auto) (0.6-2.4) K/uL Starke # (Auto) (0.0-0.8) K/uL Eos # (Auto) (0.0-0.7) K/uL Baso # (Auto) (0.0-0.1) K/uL Nucleated RBC % /100WBC Nucleated RBCs # K/uL Sodium (136-148) mmol/L Potassium (3.5-5.1) mmol/L Chloride (98-107) mmol/L Carbon Dioxide (21.0-32.0) mmol/L BUN (7.0-18.0) mg/dL Creatinine (0.8-1.3) mg/dL Est Cr Clr Drug Dosing mL/min Estimated GFR (MDRD) ml/min Glucose (74-106) mg/dL POC Glucose 312 H 186 H (60-110) mg/dL Calcium (8.5-10.1) mg/dL Phosphorus (2.6-4.7) mg/dL Magnesium (1.8-2.4) mg/dL Total Bilirubin (0.2-1.0) mg/dL AST (15-37) IU/L ALT (14-63) IU/L Alkaline Phosphatase (46-116) U/L Troponin I < 0.050 (0.000-0.056) ng/mL Total Protein (6.4-8.2) g/dL Albumin (3.4-5.0) g/dL Globulin (2.6-4.0) g/dL Albumin/Globulin Ratio (0.9-1.6) 04/25/20 04/25/20 Range/Units 17:11 21:03 WBC (4.0-11.0) K/uL RBC (4.50-5.90) M/uL Hgb (13.0-17.0) g/dL Hct (38.0-50.0) % MCV (80.0-98.0) fL MCH (27.0-32.0) pg MCHC (31.0-37.0) g/dL RDW Std Deviation (28.0-62.0) fl RDW Coeff of Charles (11.0-15.0) % Plt Count (150-400) K/uL MPV (7.40-12.00) fL Neut % (Auto) (48.0-80.0) % Lymph % (Auto) (16.0-40.0) % Starke % (Auto) (0.0-15.0) % Eos % (Auto) (0.0-7.0) % Baso % (Auto) (0.0-1.5) % Neut # (Auto) (1.4-5.7) K/uL Lymph # (Auto) (0.6-2.4) K/uL Starke # (Auto) (0.0-0.8) K/uL Eos # (Auto) (0.0-0.7) K/uL Baso # (Auto) (0.0-0.1) K/uL Nucleated RBC % /100WBC Nucleated RBCs # K/uL Sodium (136-148) mmol/L Potassium (3.5-5.1) mmol/L Chloride (98-107) mmol/L Carbon Dioxide (21.0-32.0) mmol/L BUN (7.0-18.0) mg/dL Creatinine (0.8-1.3) mg/dL Est Cr Clr Drug Dosing mL/min Estimated GFR (MDRD) ml/min Glucose (74-106) mg/dL POC Glucose 222 H 207 H (60-110) mg/dL Calcium (8.5-10.1) mg/dL Phosphorus (2.6-4.7) mg/dL Magnesium (1.8-2.4) mg/dL Total Bilirubin (0.2-1.0) mg/dL AST (15-37) IU/L ALT (14-63) IU/L Alkaline Phosphatase (46-116) U/L Troponin I (0.000-0.056) ng/mL Total Protein (6.4-8.2) g/dL Albumin (3.4-5.0) g/dL Globulin (2.6-4.0) g/dL Albumin/Globulin Ratio (0.9-1.6) Med Orders - Current: Current Medications Acetaminophen (Tylenol) 650 mg PO Q4H PRN PRN Reason: Pain (Mild 1-3)/fever Aspirin (Aspirin) 81 mg PO DAILY [facility] Last Admin: 04/25/20 08:08 Dose: 81 mg Documented by: Atorvastatin Calcium (Lipitor) 10 mg PO DAILY [facility] Last Admin: 04/25/20 08:17 Dose: 10 mg Documented by: Clopidogrel Bisulfate (Plavix) 75 mg PO DAILY [facility] Last Admin: 04/25/20 08:08 Dose: 75 mg Documented by: Al Hydroxide/Mg Hydroxide 15 (ml/ Lidocaine HCl 5 ml) 0 ml PO Q6H PRN PRN Reason: Abdominal Pain Last Admin: 04/25/20 16:50 Dose: 1 each Documented by: Dextrose/Water (Dextrose 50% In Water) 50 ml IV ASDIRECTED PRN PRN Reason: Hypoglycemia Duloxetine HCl (Cymbalta) 30 mg PO DAILY [facility] Last Admin: 04/25/20 08:17 Dose: 30 mg Documented by: Glucagon (Glucagen) 1 mg IM ASDIRECTED PRN PRN Reason: Hypoglycemia Sodium Chloride (Normal Saline) 500 mls @ 999 mls/hr IV .BOLUS [facility] Last Admin: 04/25/20 09:57 Dose: 999 mls/hr Documented by: Insulin Aspart (Novolog) 0 unit SUBCUT TIDAC [facility]; Protocol Last Admin: 04/25/20 17:51 Dose: 4 units Documented by: Insulin Glargine (Lantus Solostar) 25 units SUBCUT BEDTIME [facility] Last Admin: 04/25/20 21:04 Dose: 25 units Documented by: Isosorbide Mononitrate (Imdur) 30 mg PO DAILY [facility] Last Admin: 04/25/20 08:18 Dose: 30 mg Documented by: Losartan Potassium (Cozaar) 25 mg PO DAILY [facility] Last Admin: 04/25/20 08:19 Dose: 25 mg Documented by: Metoclopramide HCl (Reglan) 5 mg IVPUSH Q6H [facility] Last Admin: 04/25/20 20:25 Dose: 5 mg Documented by: Metoprolol Tartrate (Lopressor) 50 mg PO BID [facility] Last Admin: 04/25/20 20:26 Dose: 50 mg Documented by: Morphine Sulfate (Morphine) 2 mg IVPUSH Q3H PRN PRN Reason: Pain [facility] Last Admin: 04/25/20 17:11 Dose: 40 mg Documented by: Topiramate (Topamax) 25 mg PO BID [facility] Last Admin: 04/25/20 20:16 Dose: 25 mg Documented by: Discontinued Medications Amiodarone HCl (Cordarone) 200 mg PO BID [facility] Apixaban (Eliquis) 5 mg PO BID [facility] Aspirin (Aspirin) 81 mg PO ONETIME ONE Stop: 04/24/20 22:40 Last Admin: 04/24/20 23:10 Dose: 81 mg Documented by: Atorvastatin Calcium (Lipitor) 10 mg PO ONETIME ONE Stop: 04/24/20 22:41 Last Admin: 04/24/20 23:10 Dose: 10 mg Documented by: Clopidogrel Bisulfate (Plavix) 75 mg PO ONETIME ONE Stop: 04/24/20 22:41 Last Admin: 04/24/20 23:09 Dose: 75 mg Documented by: Al Hydroxide/Mg Hydroxide 15 (ml/ Lidocaine HCl 5 ml) 0 ml PO ONETIME ONE Stop: 04/24/20 19:31 Last Admin: 04/24/20 19:37 Dose: 20 each Documented by: Al Hydroxide/Mg Hydroxide 15 (ml/ Lidocaine HCl 5 ml) 0 ml PO ONETIME ONE Stop: 04/25/20 08:16 Last Admin: 04/25/20 08:16 Dose: 1 each Documented by: Sodium Chloride (Normal Saline) 1,000 mls @ 100 mls/hr IV STAT ONE Stop: 04/25/20 01:22 Last Admin: 04/24/20 15:29 Dose: 100 mls/hr Documented by: Isosorbide Mononitrate (Imdur) 30 mg PO ONETIME ONE Stop: 04/24/20 22:42 Last Admin: 04/24/20 23:09 Dose: 30 mg Documented by: Metoclopramide HCl (Reglan) 10 mg PO Q8H [facility] Last Admin: 04/24/20 22:30 Dose: Not Given Documented by: Metoclopramide HCl (Reglan) 10 mg PO Q8H PRN PRN Reason: Nausea Morphine Sulfate (Morphine) 4 mg IVPUSH ONETIME ONE Stop: 04/24/20 15:24 Last Admin: 04/24/20 15:29 Dose: 4 mg Documented by: Morphine Sulfate (Morphine) Confirm Administered Dose 2 mg .ROUTE .STK-MED ONE Stop: 04/25/20 09:36 Last Admin: 04/25/20 09:42 Dose: Not Given Documented by: Morphine Sulfate (Morphine) 1 mg IVPUSH ONETIME STA Stop: 04/25/20 09:42 Last Admin: 04/25/20 09:37 Dose: 1 mg Documented by: Morphine Sulfate (Morphine) 3 mg IVPUSH Q3H PRN PRN Reason: Pain Last Admin: 04/25/20 20:13 Dose: 3 mg Documented by: Ranolazine (Ranexa) 500 mg PO BID [facility] Tamsulosin HCl (Flomax) 0.4 mg PO BEDTIME [facility] Sepsis Event Note - Focused Exam Vital Signs: Vital Signs Temp Pulse Pulse Resp BP BP Pulse Ox 04/25/20 20:26 83 123/78 04/25/20 15:46 36.2 C 77 16 102/63 94 L 04/25/20 11:22 36.7 C 82 16 125/62 92 L 04/25/20 10:40 88 16 131/78 95 - My Orders Last 24 Hours: My Active Orders 04/25/20 20:16 Morphine 2 mg IVPUSH Q3H PRN - Plan Plan:: I have seen and evaluated the patient. I have discussed findings and treatment plan with resident. I agree with the assessment and plan in the following note.
[2020-04-25] MEDS: Topiramate 50 MG Tab PO SCH ×2 (08:18→20:16)
[2020-04-25] MEDS: Isosorbide Mononitrate 30 MG Tab.ER PO SCH (08:18)
[2020-04-25] MEDS: Losartan 50 MG Tab PO SCH (08:19)
[2020-04-25] MEDS ORDERED: Morphine 2 MG/ML SYRINGE ONE (09:35)
[2020-04-25] MEDS ORDERED: Morphine 2 MG/ML SYRINGE IVPUSH STA (09:41)
[2020-04-25] MEDS ORDERED: Sodium Chloride 0.9% 500 ML IV SCH (10:00)
--- NOTE | 2020-04-25 11:28 | CT ---
INDICATION: Syncope TECHNIQUE: CT head without contrast. COMPARISON: None. FINDINGS: CSF spaces: Within normal limits for age. Brain parenchyma and extra-axial spaces: The espinoza-white differentiation is normal. No sign of mass, hemorrhage, or midline shift. No extra-axial fluid collection. Skull base and calvarium: The visualized paranasal sinuses and mastoid air cells demonstrate no acute or significant findings. The visualized orbits are grossly unremarkable. No skull fractures. IMPRESSION: Unremarkable noncontrast head CT. Please note that all CT scans at this facility use dose modulation, iterative reconstruction, and/or weight-based dosing when appropriate to reduce radiation dose to as low as reasonably achievable. Dictated by Eder Snow MD @ Apr 25 2020 11:24AM Signed by Dr. Eder Snow @ Apr 25 2020 11:27AM
--- NOTE | 2020-04-25 11:38 | PCM.SN.2 ---
- Free Text/Narrative Note: Patient was observed to have syncopal event lasting a few seconds while complaining of chest pain during patients rounds this morning. Rapid response was called. The following orders were placed: IV NS 500 bolus, troponin, EKG and IV morphine 1 mg. Patient's vital signs were obtained and were stable. Glucose check was 312. Patient's neurological exam was unremarkable. Shortly after, patient noted his chest pain improved and was feeling better. His troponin was negative. EKG showed atrial-sensed ventricular paced rhythm and no acute ischemic changes. A CT head w/o contrast was also ordered.
--- NOTE | 2020-04-25 11:39 | PCM.EKG ---
#1 Interpretation EKG Date: 04/25/20 Time: 09:37 Rhythm: Other (Atrial-sensed ventricular-paced rhythm) Rate (Beats/Min): 81 [place]: Normal P-Wave: Present QRS: Normal ST-T: Normal CA/PQ Interval: 146 Comparison: No Change
[2020-04-25] MEDS: Morphine 4 MG/ML Syringe IVPUSH PRN ×2 (14:08→20:13)
[2020-04-25] MEDS: Metoclopramide 10 MG/2 ML SDV IVPUSH SCH ×2 (14:08→20:25)
[2020-04-25] MEDS: Alum Hydrox/Mag Hydrox/Simeth 15 ML, Lidocaine 2% 5 ML PO PRN ×2 (16:50)
[2020-04-25] MEDS: Insulin Glargine,Human Rec. Analog 100 Units/ML 3 ML Pen SUBCUT SCH (21:04)
[2020-04-26] MEDS: Metoclopramide 10 MG/2 ML SDV IVPUSH SCH ×3 (01:06→13:49)
[2020-04-26 05:59] LABS: BLOOD UREA NITROGEN,BUN 15 mg/dL (7.0-18.0); CARBON DIOXIDE,CO2 23.8 mmol/L (21.0-32.0); CHLORIDE,CL 103 mmol/L (98-107); GLUCOSE RANDOM 274 mg/dL (74-106); POTASSIUM,K 3.7 mmol/L (3.5-5.1); SODIUM,NA 138 mmol/L (136-148)
[2020-04-26] MEDS: Alum Hydrox/Mag Hydrox/Simeth 15 ML, Lidocaine 2% 5 ML PO PRN ×6 (07:13→14:20)
[2020-04-26] MEDS: Morphine 4 MG/ML Syringe IVPUSH PRN ×3 (07:24→14:18)
[2020-04-26] MEDS: Pantoprazole 40 MG Tab.CR PO SCH (07:47)
--- NOTE | 2020-04-26 08:07 | PCM.SN.2 ---
- Free Text/Narrative Note: Rapid response was called this morning as patient was complaining of chest pain and was observed to have syncopal event lasting a few seconds. Vital signs were checked and were stable. Glucose check was 263. Neurological exam unremarkable. He was given IV morphine 2 mg and GI cocktail. Troponin was ordered. EKG showed atrial-sensed ventricular paced rhythm and no acute ischemic changes. No reported events on telemetry. Patient denied feeling any shocks from his AICD. Patient reported significant improvement in his chest pain and stated he was feeling much better.
--- NOTE | 2020-04-26 08:09 | PCM.EKG ---
#1 Interpretation EKG Date: 04/26/20 Rhythm: Other (Atrial-sensed ventricular-paced rhythm) Rate (Beats/Min): 81 [place]: Normal P-Wave: Present ST-T: Normal QT: Normal ID/PQ Interval: 146 Comparison: No Change
--- NOTE | 2020-04-26 08:17 | PCM.PN ---
- General Info Date of Service: 04/26/20 Subjective Update: Slept well overnight and tolerated oral diet. Did not require GI cocktail or morphine overnight per nursing. A rapid response was called this morning as patient complained of chest pain and observed to have syncopal event that last for a few seconds. He did not feel any shocks from his AICD. He was given IV morphine 2 mg and GI cocktail. Vital signs were stable, glucose check was 263, neurological exam unremarkable. Troponin was ordered. EKG showed atrial-sensed ventricular paced rhythm and no acute ischemic changes. No events on telemetry. Patient reported significant improvement in his chest pain and stated he was feeling much better. - Patient Data Vitals - Most Recent: Last Vital Signs Temp 36.2 C 04/26/20 07:10 Pulse 79 04/26/20 07:37 Resp 14 04/26/20 07:37 BP 138/86 04/26/20 07:37 Pulse Ox 94 L 04/26/20 07:37 Weight - Most Recent: 81.335 kg I&O - Last 24 Hours: Intake & Output 04/25/20 04/26/20 04/26/20 22:59 06:59 14:59 Intake Total 736 640 Output Total 550 1175 Balance 186 -535 Lab Results Last 24 Hours: Laboratory Results - last 24 hr 04/25/20 04/25/20 04/25/20 Range/Units 06:26 09:27 09:32 WBC (4.0-11.0) K/uL RBC (4.50-5.90) M/uL Hgb (13.0-17.0) g/dL Hct (38.0-50.0) % MCV (80.0-98.0) fL MCH (27.0-32.0) pg MCHC (31.0-37.0) g/dL RDW Std Deviation (28.0-62.0) fl RDW Coeff of Charles (11.0-15.0) % Plt Count (150-400) K/uL MPV (7.40-12.00) fL Neut % (Auto) (48.0-80.0) % Lymph % (Auto) (16.0-40.0) % Harris % (Auto) (0.0-15.0) % Eos % (Auto) (0.0-7.0) % Baso % (Auto) (0.0-1.5) % Neut # (Auto) (1.4-5.7) K/uL Lymph # (Auto) (0.6-2.4) K/uL Harris # (Auto) (0.0-0.8) K/uL Eos # (Auto) (0.0-0.7) K/uL Baso # (Auto) (0.0-0.1) K/uL Nucleated RBC % /100WBC Nucleated RBCs # K/uL Sodium (136-148) mmol/L Potassium (3.5-5.1) mmol/L Chloride (98-107) mmol/L Carbon Dioxide (21.0-32.0) mmol/L BUN (7.0-18.0) mg/dL Creatinine (0.8-1.3) mg/dL Est Cr Clr Drug Dosing mL/min Estimated GFR (MDRD) ml/min Glucose (74-106) mg/dL POC Glucose 255 H 312 H (60-110) mg/dL Calcium (8.5-10.1) mg/dL Phosphorus (2.6-4.7) mg/dL Magnesium (1.8-2.4) mg/dL Total Bilirubin (0.2-1.0) mg/dL AST (15-37) IU/L ALT (14-63) IU/L Alkaline Phosphatase (46-116) U/L Troponin I < 0.050 (0.000-0.056) ng/mL Total Protein (6.4-8.2) g/dL Albumin (3.4-5.0) g/dL Globulin (2.6-4.0) g/dL Albumin/Globulin Ratio (0.9-1.6) 04/25/20 04/25/20 04/25/20 Range/Units 11:59 17:11 21:03 WBC (4.0-11.0) K/uL RBC (4.50-5.90) M/uL Hgb (13.0-17.0) g/dL Hct (38.0-50.0) % MCV (80.0-98.0) fL MCH (27.0-32.0) pg MCHC (31.0-37.0) g/dL RDW Std Deviation (28.0-62.0) fl RDW Coeff of Charles (11.0-15.0) % Plt Count (150-400) K/uL MPV (7.40-12.00) fL Neut % (Auto) (48.0-80.0) % Lymph % (Auto) (16.0-40.0) % Harris % (Auto) (0.0-15.0) % Eos % (Auto) (0.0-7.0) % Baso % (Auto) (0.0-1.5) % Neut # (Auto) (1.4-5.7) K/uL Lymph # (Auto) (0.6-2.4) K/uL Harris # (Auto) (0.0-0.8) K/uL Eos # (Auto) (0.0-0.7) K/uL Baso # (Auto) (0.0-0.1) K/uL Nucleated RBC % /100WBC Nucleated RBCs # K/uL Sodium (136-148) mmol/L Potassium (3.5-5.1) mmol/L Chloride (98-107) mmol/L Carbon Dioxide (21.0-32.0) mmol/L BUN (7.0-18.0) mg/dL Creatinine (0.8-1.3) mg/dL Est Cr Clr Drug Dosing mL/min Estimated GFR (MDRD) ml/min Glucose (74-106) mg/dL POC Glucose 186 H 222 H 207 H (60-110) mg/dL Calcium (8.5-10.1) mg/dL Phosphorus (2.6-4.7) mg/dL Magnesium (1.8-2.4) mg/dL Total Bilirubin (0.2-1.0) mg/dL AST (15-37) IU/L ALT (14-63) IU/L Alkaline Phosphatase (46-116) U/L Troponin I (0.000-0.056) ng/mL Total Protein (6.4-8.2) g/dL Albumin (3.4-5.0) g/dL Globulin (2.6-4.0) g/dL Albumin/Globulin Ratio (0.9-1.6) 04/26/20 04/26/20 04/26/20 Range/Units 05:12 05:12 06:28 WBC 4.06 (4.0-11.0) K/uL RBC 5.02 (4.50-5.90) M/uL Hgb 16.1 (13.0-17.0) g/dL Hct 46.4 (38.0-50.0) % MCV 92.4 (80.0-98.0) fL MCH 32.1 H (27.0-32.0) pg MCHC 34.7 (31.0-37.0) g/dL RDW Std Deviation 43.3 (28.0-62.0) fl RDW Coeff of Charles 13 (11.0-15.0) % Plt Count 170 (150-400) K/uL MPV 9.90 (7.40-12.00) fL Neut % (Auto) 53.3 (48.0-80.0) % Lymph % (Auto) 34.2 (16.0-40.0) % Harris % (Auto) 9.1 (0.0-15.0) % Eos % (Auto) 2.7 (0.0-7.0) % Baso % (Auto) 0.7 (0.0-1.5) % Neut # (Auto) 2.2 (1.4-5.7) K/uL Lymph # (Auto) 1.4 (0.6-2.4) K/uL Harris # (Auto) 0.4 (0.0-0.8) K/uL Eos # (Auto) 0.1 (0.0-0.7) K/uL Baso # (Auto) 0.0 (0.0-0.1) K/uL Nucleated RBC % 0.0 /100WBC Nucleated RBCs # 0 K/uL Sodium 138 (136-148) mmol/L Potassium 3.7 (3.5-5.1) mmol/L Chloride 103 (98-107) mmol/L Carbon Dioxide 23.8 (21.0-32.0) mmol/L BUN 15 (7.0-18.0) mg/dL Creatinine 0.9 (0.8-1.3) mg/dL Est Cr Clr Drug Dosing 106.69 mL/min Estimated GFR (MDRD) > 60.0 ml/min Glucose 274 H (74-106) mg/dL POC Glucose 208 H (60-110) mg/dL Calcium 8.3 L (8.5-10.1) mg/dL Phosphorus 4.2 (2.6-4.7) mg/dL Magnesium 1.9 (1.8-2.4) mg/dL Total Bilirubin 1.3 H (0.2-1.0) mg/dL AST 58 H (15-37) IU/L ALT 87 H (14-63) IU/L Alkaline Phosphatase 121 H (46-116) U/L Troponin I (0.000-0.056) ng/mL Total Protein 6.6 (6.4-8.2) g/dL Albumin 3.5 (3.4-5.0) g/dL Globulin 3.1 (2.6-4.0) g/dL Albumin/Globulin Ratio 1.1 (0.9-1.6) 04/26/20 Range/Units 07:38 WBC (4.0-11.0) K/uL RBC (4.50-5.90) M/uL Hgb (13.0-17.0) g/dL Hct (38.0-50.0) % MCV (80.0-98.0) fL MCH (27.0-32.0) pg MCHC (31.0-37.0) g/dL RDW Std Deviation (28.0-62.0) fl RDW Coeff of Charles (11.0-15.0) % Plt Count (150-400) K/uL MPV (7.40-12.00) fL Neut % (Auto) (48.0-80.0) % Lymph % (Auto) (16.0-40.0) % Harris % (Auto) (0.0-15.0) % Eos % (Auto) (0.0-7.0) % Baso % (Auto) (0.0-1.5) % Neut # (Auto) (1.4-5.7) K/uL Lymph # (Auto) (0.6-2.4) K/uL Harris # (Auto) (0.0-0.8) K/uL Eos # (Auto) (0.0-0.7) K/uL Baso # (Auto) (0.0-0.1) K/uL Nucleated RBC % /100WBC Nucleated RBCs # K/uL Sodium (136-148) mmol/L Potassium (3.5-5.1) mmol/L Chloride (98-107) mmol/L Carbon Dioxide (21.0-32.0) mmol/L BUN (7.0-18.0) mg/dL Creatinine (0.8-1.3) mg/dL Est Cr Clr Drug Dosing mL/min Estimated GFR (MDRD) ml/min Glucose (74-106) mg/dL POC Glucose (60-110) mg/dL Calcium (8.5-10.1) mg/dL Phosphorus (2.6-4.7) mg/dL Magnesium (1.8-2.4) mg/dL Total Bilirubin (0.2-1.0) mg/dL AST (15-37) IU/L ALT (14-63) IU/L Alkaline Phosphatase (46-116) U/L Troponin I < 0.050 (0.000-0.056) ng/mL Total Protein (6.4-8.2) g/dL Albumin (3.4-5.0) g/dL Globulin (2.6-4.0) g/dL Albumin/Globulin Ratio (0.9-1.6) Med Orders - Current: Current Medications Acetaminophen (Tylenol) 650 mg PO Q4H PRN PRN Reason: Pain (Mild 1-3)/fever Aspirin (Aspirin) 81 mg PO DAILY [facility] Last Admin: 04/25/20 08:08 Dose: 81 mg Documented by: Atorvastatin Calcium (Lipitor) 10 mg PO DAILY [facility] Last Admin: 04/25/20 08:17 Dose: 10 mg Documented by: Clopidogrel Bisulfate (Plavix) 75 mg PO DAILY [facility] Last Admin: 04/25/20 08:08 Dose: 75 mg Documented by: Al Hydroxide/Mg Hydroxide 15 (ml/ Lidocaine HCl 5 ml) 0 ml PO Q6H PRN PRN Reason: Abdominal Pain Last Admin: 04/26/20 07:13 Dose: 1 each Documented by: Dextrose/Water (Dextrose 50% In Water) 50 ml IV ASDIRECTED PRN PRN Reason: Hypoglycemia Duloxetine HCl (Cymbalta) 30 mg PO DAILY [facility] Last Admin: 04/25/20 08:17 Dose: 30 mg Documented by: Glucagon (Glucagen) 1 mg IM ASDIRECTED PRN PRN Reason: Hypoglycemia Sodium Chloride (Normal Saline) 500 mls @ 999 mls/hr IV .BOLUS [facility] Last Admin: 04/25/20 09:57 Dose: 999 mls/hr Documented by: Insulin Aspart (Novolog) 0 unit SUBCUT TIDAC [facility]; Protocol Last Admin: 04/25/20 17:51 Dose: 4 units Documented by: Insulin Glargine (Lantus Solostar) 25 units SUBCUT BEDTIME [facility] Last Admin: 04/25/20 21:04 Dose: 25 units Documented by: Isosorbide Mononitrate (Imdur) 30 mg PO DAILY [facility] Last Admin: 04/25/20 08:18 Dose: 30 mg Documented by: Losartan Potassium (Cozaar) 25 mg PO DAILY [facility] Last Admin: 04/25/20 08:19 Dose: 25 mg Documented by: Metoclopramide HCl (Reglan) 5 mg IVPUSH Q6H [facility] Last Admin: 04/26/20 01:06 Dose: 5 mg Documented by: Metoprolol Tartrate (Lopressor) 50 mg PO BID [facility] Last Admin: 04/25/20 20:26 Dose: 50 mg Documented by: Morphine Sulfate (Morphine) 2 mg IVPUSH Q3H PRN PRN Reason: Pain Last Admin: 04/26/20 07:24 Dose: 2 mg Documented by: [facility] Last Admin: 04/26/20 07:47 Dose: 40 mg Documented by: Topiramate (Topamax) 25 mg PO BID [facility] Last Admin: 04/25/20 20:16 Dose: 25 mg Documented by: Discontinued Medications Amiodarone HCl (Cordarone) 200 mg PO BID [facility] Apixaban (Eliquis) 5 mg PO BID [facility] Aspirin (Aspirin) 81 mg PO ONETIME ONE Stop: 04/24/20 22:40 Last Admin: 04/24/20 23:10 Dose: 81 mg Documented by: Atorvastatin Calcium (Lipitor) 10 mg PO ONETIME ONE Stop: 04/24/20 22:41 Last Admin: 04/24/20 23:10 Dose: 10 mg Documented by: Clopidogrel Bisulfate (Plavix) 75 mg PO ONETIME ONE Stop: 04/24/20 22:41 Last Admin: 04/24/20 23:09 Dose: 75 mg Documented by: Al Hydroxide/Mg Hydroxide 15 (ml/ Lidocaine HCl 5 ml) 0 ml PO ONETIME ONE Stop: 04/24/20 19:31 Last Admin: 04/24/20 19:37 Dose: 20 each Documented by: Al Hydroxide/Mg Hydroxide 15 (ml/ Lidocaine HCl 5 ml) 0 ml PO ONETIME ONE Stop: 04/25/20 08:16 Last Admin: 04/25/20 08:16 Dose: 1 each Documented by: Sodium Chloride (Normal Saline) 1,000 mls @ 100 mls/hr IV STAT ONE Stop: 04/25/20 01:22 Last Admin: 04/24/20 15:29 Dose: 100 mls/hr Documented by: Isosorbide Mononitrate (Imdur) 30 mg PO ONETIME ONE Stop: 04/24/20 22:42 Last Admin: 04/24/20 23:09 Dose: 30 mg Documented by: Metoclopramide HCl (Reglan) 10 mg PO Q8H [facility] Last Admin: 04/24/20 22:30 Dose: Not Given Documented by: Metoclopramide HCl (Reglan) 10 mg PO Q8H PRN PRN Reason: Nausea Morphine Sulfate (Morphine) 4 mg IVPUSH ONETIME ONE Stop: 04/24/20 15:24 Last Admin: 04/24/20 15:29 Dose: 4 mg Documented by: Morphine Sulfate (Morphine) Confirm Administered Dose 2 mg .ROUTE .STK-MED ONE Stop: 04/25/20 09:36 Last Admin: 04/25/20 09:42 Dose: Not Given Documented by: Morphine Sulfate (Morphine) 1 mg IVPUSH ONETIME STA Stop: 04/25/20 09:42 Last Admin: 04/25/20 09:37 Dose: 1 mg Documented by: Morphine Sulfate (Morphine) 3 mg IVPUSH Q3H PRN PRN Reason: Pain Last Admin: 04/25/20 20:13 Dose: 3 mg Documented by: Ranolazine (Ranexa) 500 mg PO BID [facility] Tamsulosin HCl (Flomax) 0.4 mg PO BEDTIME [facility] - Exam General: Alert, Oriented, Cooperative, Mild Distress Lungs: Clear to Auscultation, Normal Respiratory Effort Cardiovascular: Regular Rate, Regular Rhythm GI/Abdominal Exam: Normal Bowel Sounds, Soft, Non-Tender, No Distention Extremities: Normal Inspection, No Pedal Edema Neurological: No New Focal Deficit, Normal Speech, Normal Tone, Strength Equal Bilateral, Sensation Intact, Cranial Nerves Intact Sepsis Event Note - Evaluation Sepsis Screening Result: No Definite Risk - Focused Exam Vital Signs: Vital Signs Temp Pulse Pulse Resp BP BP Pulse Ox 04/26/20 07:37 79 14 138/86 94 L 04/26/20 07:33 79 12 96 04/26/20 07:30 83 10 L 144/96 H 95 04/26/20 07:10 36.2 C 72 118/82 94 L 04/26/20 04:00 36.8 C 76 18 130/68 97 04/26/20 00:00 36.5 C 82 18 125/65 96 04/25/20 20:26 83 123/78 - Problem List & Annotations (1) Chest pain, rule out acute myocardial infarction SNOMED Code(s): 64438873 Code(s): R07.9 - CHEST PAIN, UNSPECIFIED Status: Acute Current Visit: Yes (2) Erosive gastritis SNOMED Code(s): 0790264746252727 Code(s): K29.60 - OTHER GASTRITIS WITHOUT BLEEDING Status: Acute Current Visit: No (3) Gastroparesis SNOMED Code(s): 693583515 Code(s): K31.84 - GASTROPARESIS Status: Acute Current Visit: No (4) Cardiomyopathy SNOMED Code(s): 38317019 Code(s): I42.9 - CARDIOMYOPATHY, UNSPECIFIED Status: Chronic Current Visit: No (5) DM type 1 (diabetes mellitus, type 1) SNOMED Code(s): 97506496 Code(s): E10.9 - TYPE 1 DIABETES MELLITUS WITHOUT COMPLICATIONS Status: Chronic Current Visit: No Qualifiers: Diabetes mellitus complication status: with hyperglycemia Qualified Code(s): E10.65 - Type 1 diabetes mellitus with hyperglycemia (6) Hx of cardiac pacemaker SNOMED Code(s): 757056147 Code(s): Z95.0 - PRESENCE OF CARDIAC PACEMAKER Status: Chronic Current Visit: No - Problem List Review Problem List Initiated/Reviewed/Updated: Yes - My Orders Last 24 Hours: My Active Orders 04/25/20 07:30 Insulin Aspart [NovoLOG] See Protocol SUBCUT TIDAC 04/25/20 09:00 Aspirin 81 mg PO DAILY Clopidogrel [Plavix] 75 mg PO DAILY DULoxetine [Cymbalta] 30 mg PO DAILY Isosorbide Mononitrate [Imdur] 30 mg PO DAILY Losartan [Cozaar] 25 mg PO DAILY atorvaSTATin [Lipitor] 10 mg PO DAILY 04/25/20 18:01 Blood Glucose Check, Bedside [RC] QIDACANDBED 04/27/20 05:11 CBC WITH AUTO DIFF [HEME] AM COMPREHENSIVE METABOLIC PN,CMP [CHEM] AM MAGNESIUM [CHEM] AM PHOSPHORUS [CHEM] AM - Plan Plan:: Assessment and Plan: 1. Chest pain: - Patient on telemetry. Troponins trended and negative. EKG showed paced rhythm with no acute ischemic changes. Repeat EKG shows no significant changes on comparison. Patient denies feeling any shocks from his AICD. 2. Gastritis vs Gastroparesis in the setting of #1: - IV morphine 2 mg q3 prn, IV Reglan 5 mg q6 and GI cocktail q6 prn. 3. Diabetes mellitus type 1: - ADA diet, accuchecks TIDAC and SSI. Continue lantus 25 units bedtime. 4. Past medical history of cardiomyopathy with ICD, systolic HF, s/p CABG, HTN, syncope and postural hypotension: - Continue home medications. 5. DVT prophylaxis: - SCD's for now.
[2020-04-26] MEDS: Metoprolol Tartrate 50 MG Tab PO SCH (08:55)
[2020-04-26] MEDS: atorvaSTATin 10 MG Tab PO SCH (08:55)
[2020-04-26] MEDS: Aspirin 81 MG Tab.Chew PO SCH (08:55)
[2020-04-26] MEDS: DULoxetine 30 MG Cap PO SCH (08:56)
[2020-04-26] MEDS: Insulin Aspart 100 Units/ML 3 ML Pen SUBCUT SCH ×2 (08:56→12:31)
[2020-04-26] MEDS: Clopidogrel 75 MG Tab PO SCH (08:56)
[2020-04-26] MEDS: Isosorbide Mononitrate 30 MG Tab.ER PO SCH (09:00)
[2020-04-26] MEDS: Topiramate 50 MG Tab PO SCH (09:00)
[2020-04-26] MEDS: Losartan 50 MG Tab PO SCH (09:02)
--- NOTE | 2020-04-26 09:13 | PCM.DCSUM1 ---
<Norberto Ritchie - Last Filed: 04/26/20 09:14> Discharge Summary - Hospital Course Free Text/Narrative:: 54-year-old male admitted for chest pain. He has a PMH of cardiomyopathy with ICD, systolic HF, s/p CABG, DM type 1, HTN, gastritis, gastroparesis and recurrent syncope. CXR unremarkable. COVID-19 test negative. EKG showed paced rhythm with no acute ischemic changes. Troponins trended and were negative. No reported events on telemetry. Patient denied feeling any shocks from his ICD recently. He was given GI cocktail and Reglan for his gastritis and gastroparesis which helped his pain at times. During hospitalization, patient had recurrence of chest pain and would have multiple observed episodes of syncope. Rapid response was called on two occasions and both teams revealed normal vital signs, normal glucose check, unremarkable neurological exam, repeat EKG's showed no significant changes and troponins were negative. No observed seizure-like activity. CT head was obtained and was unremarkable. At this time, I believe patient requires more urgent cardiac evaluation considering his significant history, recurrent chest pain and recurrent syncopal episodes. Cardiology not available at our facility at this time. [facility] was contacted and patient was accepted for transfer by ER physician Dr. Barney MD. Patient transferred in stable condition via ground ambulance. - Discharge Data Discharge Date: 04/26/20 Discharge Disposition: DC/Tfer to Acute Hospital 02 Condition: Stable - Referral to Home Health Primary Care Physician: Elder Diez MD - Discharge Diagnosis/Problem(s) (1) Chest pain, rule out acute myocardial infarction SNOMED Code(s): 75207646 ICD Code: R07.9 - CHEST PAIN, UNSPECIFIED Status: Acute (2) Erosive gastritis SNOMED Code(s): 6337293627567262 ICD Code: K29.60 - OTHER GASTRITIS WITHOUT BLEEDING Status: Acute (3) Gastroparesis SNOMED Code(s): 290416493 ICD Code: K31.84 - GASTROPARESIS Status: Acute (4) Cardiomyopathy SNOMED Code(s): 67376611 ICD Code: I42.9 - CARDIOMYOPATHY, UNSPECIFIED Status: Chronic (5) DM type 1 (diabetes mellitus, type 1) SNOMED Code(s): 22692612 ICD Code: E10.9 - TYPE 1 DIABETES MELLITUS WITHOUT COMPLICATIONS Status: Chronic Qualifiers: Diabetes mellitus complication status: with hyperglycemia Qualified Code(s): E10.65 - Type 1 diabetes mellitus with hyperglycemia (6) Hx of cardiac pacemaker SNOMED Code(s): 114335239 ICD Code: Z95.0 - PRESENCE OF CARDIAC PACEMAKER Status: Chronic - Patient Instructions Diet: Diabetic Diet Activity: As Tolerated - Discharge Plan *PRESCRIPTION DRUG MONITORING PROGRAM REVIEWED*: Not Applicable *COPY OF PRESCRIPTION DRUG MONITORING REPORT IN PATIENT CEZAR: Not Applicable Home Medications: Home Meds Insulin Aspart [NovoLOG] See Protocol SUBCUT TIDMEALS #0 12/25/16 [Rx] Metoprolol Tartrate 25 mg PO BID 01/05/19 [History] Topiramate 25 mg PO BID 01/05/19 [History] atorvaSTATin [Lipitor] 10 mg PO DAILY 01/05/19 [History] Insulin Lispro [Humalog Kwikpen U-100] 1 unit SQ ASDIRECTED 06/11/19 [History] Losartan [Cozaar] 25 mg PO DAILY 06/11/19 [History] DULoxetine [Cymbalta] 30 mg PO DAILY 11/02/19 [History] Pantoprazole Sodium [Protonix] 40 mg PO BID #60 tablet. 11/03/19 [Rx] Aspirin 81 mg PO DAILY 11/27/19 [History] Clopidogrel [Plavix] 75 mg PO DAILY 11/27/19 [History] Isosorbide Mononitrate [Isosorbide Mononitrate ER] 30 mg PO DAILY 11/27/19 [History] Losartan [Cozaar] 25 mg PO DAILY 04/24/20 [History] Apixaban [Eliquis] 04/25/20 [History] Oxygen Therapy Mode: Room Air Forms: ED Department Discharge Referrals: Elder Diez MD [Primary Care Provider] - 05/02/20 9:30 am - Discharge Summary/Plan Comment DC Time >30 min.: No - Patient Data Vitals - Most Recent: Last Vital Signs Temp 36.2 C 04/26/20 07:10 Pulse 87 04/26/20 08:55 Resp 14 04/26/20 07:37 BP 117/72 04/26/20 09:02 Pulse Ox 94 L 04/26/20 07:37 Weight - Most Recent: 81.335 kg I&O - Last 24 hours: Intake & Output 04/25/20 04/26/20 04/26/20 22:59 06:59 14:59 Intake Total 736 640 Output Total 550 1175 Balance 186 -535 Lab Results - Last 24 hrs: Laboratory Results - last 24 hr 04/25/20 04/25/20 04/25/20 Range/Units 06:26 09:27 09:32 WBC (4.0-11.0) K/uL RBC (4.50-5.90) M/uL Hgb (13.0-17.0) g/dL Hct (38.0-50.0) % MCV (80.0-98.0) fL MCH (27.0-32.0) pg MCHC (31.0-37.0) g/dL RDW Std Deviation (28.0-62.0) fl RDW Coeff of Charles (11.0-15.0) % Plt Count (150-400) K/uL MPV (7.40-12.00) fL Neut % (Auto) (48.0-80.0) % Lymph % (Auto) (16.0-40.0) % Ventura % (Auto) (0.0-15.0) % Eos % (Auto) (0.0-7.0) % Baso % (Auto) (0.0-1.5) % Neut # (Auto) (1.4-5.7) K/uL Lymph # (Auto) (0.6-2.4) K/uL Ventura # (Auto) (0.0-0.8) K/uL Eos # (Auto) (0.0-0.7) K/uL Baso # (Auto) (0.0-0.1) K/uL Nucleated RBC % /100WBC Nucleated RBCs # K/uL Sodium (136-148) mmol/L Potassium (3.5-5.1) mmol/L Chloride (98-107) mmol/L Carbon Dioxide (21.0-32.0) mmol/L BUN (7.0-18.0) mg/dL Creatinine (0.8-1.3) mg/dL Est Cr Clr Drug Dosing mL/min Estimated GFR (MDRD) ml/min Glucose (74-106) mg/dL POC Glucose 255 H 312 H (60-110) mg/dL Calcium (8.5-10.1) mg/dL Phosphorus (2.6-4.7) mg/dL Magnesium (1.8-2.4) mg/dL Total Bilirubin (0.2-1.0) mg/dL AST (15-37) IU/L ALT (14-63) IU/L Alkaline Phosphatase (46-116) U/L Troponin I < 0.050 (0.000-0.056) ng/mL Total Protein (6.4-8.2) g/dL Albumin (3.4-5.0) g/dL Globulin (2.6-4.0) g/dL Albumin/Globulin Ratio (0.9-1.6) 04/25/20 04/25/20 04/25/20 Range/Units 11:59 17:11 21:03 WBC (4.0-11.0) K/uL RBC (4.50-5.90) M/uL Hgb (13.0-17.0) g/dL Hct (38.0-50.0) % MCV (80.0-98.0) fL MCH (27.0-32.0) pg MCHC (31.0-37.0) g/dL RDW Std Deviation (28.0-62.0) fl RDW Coeff of Charles (11.0-15.0) % Plt Count (150-400) K/uL MPV (7.40-12.00) fL Neut % (Auto) (48.0-80.0) % Lymph % (Auto) (16.0-40.0) % Ventura % (Auto) (0.0-15.0) % Eos % (Auto) (0.0-7.0) % Baso % (Auto) (0.0-1.5) % Neut # (Auto) (1.4-5.7) K/uL Lymph # (Auto) (0.6-2.4) K/uL Ventura # (Auto) (0.0-0.8) K/uL Eos # (Auto) (0.0-0.7) K/uL Baso # (Auto) (0.0-0.1) K/uL Nucleated RBC % /100WBC Nucleated RBCs # K/uL Sodium (136-148) mmol/L Potassium (3.5-5.1) mmol/L Chloride (98-107) mmol/L Carbon Dioxide (21.0-32.0) mmol/L BUN (7.0-18.0) mg/dL Creatinine (0.8-1.3) mg/dL Est Cr Clr Drug Dosing mL/min Estimated GFR (MDRD) ml/min Glucose (74-106) mg/dL POC Glucose 186 H 222 H 207 H (60-110) mg/dL Calcium (8.5-10.1) mg/dL Phosphorus (2.6-4.7) mg/dL Magnesium (1.8-2.4) mg/dL Total Bilirubin (0.2-1.0) mg/dL AST (15-37) IU/L ALT (14-63) IU/L Alkaline Phosphatase (46-116) U/L Troponin I (0.000-0.056) ng/mL Total Protein (6.4-8.2) g/dL Albumin (3.4-5.0) g/dL Globulin (2.6-4.0) g/dL Albumin/Globulin Ratio (0.9-1.6) 04/26/20 04/26/20 04/26/20 Range/Units 05:12 05:12 06:28 WBC 4.06 (4.0-11.0) K/uL RBC 5.02 (4.50-5.90) M/uL Hgb 16.1 (13.0-17.0) g/dL Hct 46.4 (38.0-50.0) % MCV 92.4 (80.0-98.0) fL MCH 32.1 H (27.0-32.0) pg MCHC 34.7 (31.0-37.0) g/dL RDW Std Deviation 43.3 (28.0-62.0) fl RDW Coeff of Charles 13 (11.0-15.0) % Plt Count 170 (150-400) K/uL MPV 9.90 (7.40-12.00) fL Neut % (Auto) 53.3 (48.0-80.0) % Lymph % (Auto) 34.2 (16.0-40.0) % Ventura % (Auto) 9.1 (0.0-15.0) % Eos % (Auto) 2.7 (0.0-7.0) % Baso % (Auto) 0.7 (0.0-1.5) % Neut # (Auto) 2.2 (1.4-5.7) K/uL Lymph # (Auto) 1.4 (0.6-2.4) K/uL Ventura # (Auto) 0.4 (0.0-0.8) K/uL Eos # (Auto) 0.1 (0.0-0.7) K/uL Baso # (Auto) 0.0 (0.0-0.1) K/uL Nucleated RBC % 0.0 /100WBC Nucleated RBCs # 0 K/uL Sodium 138 (136-148) mmol/L Potassium 3.7 (3.5-5.1) mmol/L Chloride 103 (98-107) mmol/L Carbon Dioxide 23.8 (21.0-32.0) mmol/L BUN 15 (7.0-18.0) mg/dL Creatinine 0.9 (0.8-1.3) mg/dL Est Cr Clr Drug Dosing 106.69 mL/min Estimated GFR (MDRD) > 60.0 ml/min Glucose 274 H (74-106) mg/dL POC Glucose 208 H (60-110) mg/dL Calcium 8.3 L (8.5-10.1) mg/dL Phosphorus 4.2 (2.6-4.7) mg/dL Magnesium 1.9 (1.8-2.4) mg/dL Total Bilirubin 1.3 H (0.2-1.0) mg/dL AST 58 H (15-37) IU/L ALT 87 H (14-63) IU/L Alkaline Phosphatase 121 H (46-116) U/L Troponin I (0.000-0.056) ng/mL Total Protein 6.6 (6.4-8.2) g/dL Albumin 3.5 (3.4-5.0) g/dL Globulin 3.1 (2.6-4.0) g/dL Albumin/Globulin Ratio 1.1 (0.9-1.6) 04/26/20 Range/Units 07:38 WBC (4.0-11.0) K/uL RBC (4.50-5.90) M/uL Hgb (13.0-17.0) g/dL Hct (38.0-50.0) % MCV (80.0-98.0) fL MCH (27.0-32.0) pg MCHC (31.0-37.0) g/dL RDW Std Deviation (28.0-62.0) fl RDW Coeff of Charles (11.0-15.0) % Plt Count (150-400) K/uL MPV (7.40-12.00) fL Neut % (Auto) (48.0-80.0) % Lymph % (Auto) (16.0-40.0) % Ventura % (Auto) (0.0-15.0) % Eos % (Auto) (0.0-7.0) % Baso % (Auto) (0.0-1.5) % Neut # (Auto) (1.4-5.7) K/uL Lymph # (Auto) (0.6-2.4) K/uL Ventura # (Auto) (0.0-0.8) K/uL Eos # (Auto) (0.0-0.7) K/uL Baso # (Auto) (0.0-0.1) K/uL Nucleated RBC % /100WBC Nucleated RBCs # K/uL Sodium (136-148) mmol/L Potassium (3.5-5.1) mmol/L Chloride (98-107) mmol/L Carbon Dioxide (21.0-32.0) mmol/L BUN (7.0-18.0) mg/dL Creatinine (0.8-1.3) mg/dL Est Cr Clr Drug Dosing mL/min Estimated GFR (MDRD) ml/min Glucose (74-106) mg/dL POC Glucose (60-110) mg/dL Calcium (8.5-10.1) mg/dL Phosphorus (2.6-4.7) mg/dL Magnesium (1.8-2.4) mg/dL Total Bilirubin (0.2-1.0) mg/dL AST (15-37) IU/L ALT (14-63) IU/L Alkaline Phosphatase (46-116) U/L Troponin I < 0.050 (0.000-0.056) ng/mL Total Protein (6.4-8.2) g/dL Albumin (3.4-5.0) g/dL Globulin (2.6-4.0) g/dL Albumin/Globulin Ratio (0.9-1.6) Med Orders - Current: Current Medications Acetaminophen (Tylenol) 650 mg PO Q4H PRN PRN Reason: Pain (Mild 1-3)/fever Aspirin (Aspirin) 81 mg PO DAILY ON LICENSE OF [facility] Last Admin: 04/26/20 08:55 Dose: 81 mg Documented by: Atorvastatin Calcium (Lipitor) 10 mg PO DAILY ON LICENSE OF [facility] Last Admin: 04/26/20 08:55 Dose: 10 mg Documented by: Clopidogrel Bisulfate (Plavix) 75 mg PO DAILY ON LICENSE OF [facility] Last Admin: 04/26/20 08:56 Dose: 75 mg Documented by: Al Hydroxide/Mg Hydroxide 15 (ml/ Lidocaine HCl 5 ml) 0 ml PO Q6H PRN PRN Reason: Abdominal Pain Last Admin: 04/26/20 07:13 Dose: 1 each Documented by: Dextrose/Water (Dextrose 50% In Water) 50 ml IV ASDIRECTED PRN PRN Reason: Hypoglycemia Duloxetine HCl (Cymbalta) 30 mg PO DAILY ON LICENSE OF [facility] Last Admin: 04/26/20 08:56 Dose: 30 mg Documented by: Glucagon (Glucagen) 1 mg IM ASDIRECTED PRN PRN Reason: Hypoglycemia Sodium Chloride (Normal Saline) 500 mls @ 999 mls/hr IV .BOLUS ON LICENSE OF [facility] Last Admin: 04/25/20 09:57 Dose: 999 mls/hr Documented by: Insulin Aspart (Novolog) 0 unit SUBCUT TIDAC ON LICENSE OF [facility]; Protocol Last Admin: 04/26/20 08:56 Dose: 6 units Documented by: Insulin Glargine (Lantus Solostar) 25 units SUBCUT BEDTIME ON LICENSE OF [facility] Last Admin: 04/25/20 21:04 Dose: 25 units Documented by: Isosorbide Mononitrate (Imdur) 30 mg PO DAILY ON LICENSE OF [facility] Last Admin: 04/26/20 09:00 Dose: 30 mg Documented by: Losartan Potassium (Cozaar) 25 mg PO DAILY ON LICENSE OF [facility] Last Admin: 04/26/20 09:02 Dose: 25 mg Documented by: Metoclopramide HCl (Reglan) 5 mg IVPUSH Q6H ON LICENSE OF [facility] Last Admin: 04/26/20 01:06 Dose: 5 mg Documented by: Metoprolol Tartrate (Lopressor) 50 mg PO BID ON LICENSE OF [facility] Last Admin: 04/26/20 08:55 Dose: 50 mg Documented by: Morphine Sulfate (Morphine) 2 mg IVPUSH Q3H PRN PRN Reason: Pain Last Admin: 04/26/20 07:24 Dose: 2 mg Documented by: Pantoprazole Sodium (Protonix) 40 mg PO BIDAC ON LICENSE OF [facility] Last Admin: 04/26/20 07:47 Dose: 40 mg Documented by: Topiramate (Topamax) 25 mg PO BID ON LICENSE OF [facility] Last Admin: 04/26/20 09:00 Dose: 25 mg Documented by: Discontinued Medications Amiodarone HCl (Cordarone) 200 mg PO BID ON LICENSE OF [facility] Apixaban (Eliquis) 5 mg PO BID ON LICENSE OF [facility] Aspirin (Aspirin) 81 mg PO ONETIME ONE Stop: 04/24/20 22:40 Last Admin: 04/24/20 23:10 Dose: 81 mg Documented by: Atorvastatin Calcium (Lipitor) 10 mg PO ONETIME ONE Stop: 04/24/20 22:41 Last Admin: 04/24/20 23:10 Dose: 10 mg Documented by: Clopidogrel Bisulfate (Plavix) 75 mg PO ONETIME ONE Stop: 04/24/20 22:41 Last Admin: 04/24/20 23:09 Dose: 75 mg Documented by: Al Hydroxide/Mg Hydroxide 15 (ml/ Lidocaine HCl 5 ml) 0 ml PO ONETIME ONE Stop: 04/24/20 19:31 Last Admin: 04/24/20 19:37 Dose: 20 each Documented by: Al Hydroxide/Mg Hydroxide 15 (ml/ Lidocaine HCl 5 ml) 0 ml PO ONETIME ONE Stop: 04/25/20 08:16 Last Admin: 04/25/20 08:16 Dose: 1 each Documented by: Sodium Chloride (Normal Saline) 1,000 mls @ 100 mls/hr IV STAT ONE Stop: 04/25/20 01:22 Last Admin: 04/24/20 15:29 Dose: 100 mls/hr Documented by: Isosorbide Mononitrate (Imdur) 30 mg PO ONETIME ONE Stop: 04/24/20 22:42 Last Admin: 04/24/20 23:09 Dose: 30 mg Documented by: Metoclopramide HCl (Reglan) 10 mg PO Q8H ON LICENSE OF [facility] Last Admin: 04/24/20 22:30 Dose: Not Given Documented by: Metoclopramide HCl (Reglan) 10 mg PO Q8H PRN PRN Reason: Nausea Morphine Sulfate (Morphine) 4 mg IVPUSH ONETIME ONE Stop: 04/24/20 15:24 Last Admin: 04/24/20 15:29 Dose: 4 mg Documented by: Morphine Sulfate (Morphine) Confirm Administered Dose 2 mg .ROUTE .STK-MED ONE Stop: 04/25/20 09:36 Last Admin: 04/25/20 09:42 Dose: Not Given Documented by: Morphine Sulfate (Morphine) 1 mg IVPUSH ONETIME STA Stop: 04/25/20 09:42 Last Admin: 04/25/20 09:37 Dose: 1 mg Documented by: Morphine Sulfate (Morphine) 3 mg IVPUSH Q3H PRN PRN Reason: Pain Last Admin: 04/25/20 20:13 Dose: 3 mg Documented by: Ranolazine (Ranexa) 500 mg PO BID [place] Tamsulosin HCl (Flomax) 0.4 mg PO BEDTIME [place] - Exam General: Reports: Alert, Oriented, Cooperative, No Acute Distress Lungs: Reports: Clear to Auscultation, Normal Respiratory Effort Cardiovascular: Reports: Regular Rate, Regular Rhythm GI/Abdominal Exam: Normal Bowel Sounds, Soft, Non-Tender, No Distention Extremities: Normal Inspection, No Pedal Edema <Zoran,Hooria - Last Filed: 05/02/20 11:12> Discharge Summary - Hospital Course Free Text/Narrative:: I have seen and evaluated the patient and agree with the residents note unless specified in my note - Referral to Home Health Primary Care Physician: Elder Diez MD - Patient Data Vitals - Most Recent: Last Vital Signs Temp 36.0 C L 04/26/20 11:28 Pulse 81 04/26/20 11:28 Resp 18 04/26/20 11:28 BP 130/86 04/26/20 11:28 Pulse Ox 96 04/26/20 11:28 Med Orders - Current: Current Medications Discontinued Medications Acetaminophen (Tylenol) 650 mg PO Q4H PRN PRN Reason: Pain (Mild 1-3)/fever Amiodarone HCl (Cordarone) 200 mg PO BID [place] Apixaban (Eliquis) 5 mg PO BID [place] Aspirin (Aspirin) 81 mg PO DAILY ON LICENSE OF [facility] Last Admin: 04/26/20 08:55 Dose: 81 mg Documented by: Aspirin (Aspirin) 81 mg PO ONETIME ONE Stop: 04/24/20 22:40 Last Admin: 04/24/20 23:10 Dose: 81 mg Documented by: Atorvastatin Calcium (Lipitor) 10 mg PO DAILY ON LICENSE OF [facility] Last Admin: 04/26/20 08:55 Dose: 10 mg Documented by: Atorvastatin Calcium (Lipitor) 10 mg PO ONETIME ONE Stop: 04/24/20 22:41 Last Admin: 04/24/20 23:10 Dose: 10 mg Documented by: Clopidogrel Bisulfate (Plavix) 75 mg PO DAILY ON LICENSE OF [facility] Last Admin: 04/26/20 08:56 Dose: 75 mg Documented by: Clopidogrel Bisulfate (Plavix) 75 mg PO ONETIME ONE Stop: 04/24/20 22:41 Last Admin: 04/24/20 23:09 Dose: 75 mg Documented by: Al Hydroxide/Mg Hydroxide 15 (ml/ Lidocaine HCl 5 ml) 0 ml PO ONETIME ONE Stop: 04/24/20 19:31 Last Admin: 04/24/20 19:37 Dose: 20 each Documented by: Al Hydroxide/Mg Hydroxide 15 (ml/ Lidocaine HCl 5 ml) 0 ml PO ONETIME ONE Stop: 04/25/20 08:16 Last Admin: 04/25/20 08:16 Dose: 1 each Documented by: Al Hydroxide/Mg Hydroxide 15 (ml/ Lidocaine HCl 5 ml) 0 ml PO Q6H PRN PRN Reason: Abdominal Pain Last Admin: 04/26/20 14:20 Dose: 1 each Documented by: Dextrose/Water (Dextrose 50% In Water) 50 ml IV ASDIRECTED PRN PRN Reason: Hypoglycemia Duloxetine HCl (Cymbalta) 30 mg PO DAILY ON LICENSE OF [facility] Last Admin: 04/26/20 08:56 Dose: 30 mg Documented by: Glucagon (Glucagen) 1 mg IM ASDIRECTED PRN PRN Reason: Hypoglycemia Sodium Chloride (Normal Saline) 1,000 mls @ 100 mls/hr IV STAT ONE Stop: 04/25/20 01:22 Last Admin: 04/24/20 15:29 Dose: 100 mls/hr Documented by: Sodium Chloride (Normal Saline) 500 mls @ 999 mls/hr IV .BOLUS ON LICENSE OF [facility] Last Admin: 04/25/20 09:57 Dose: 999 mls/hr Documented by: Insulin Aspart (Novolog) 0 unit SUBCUT TIDAC ON LICENSE OF [facility]; Protocol Last Admin: 04/26/20 12:31 Dose: 6 units Documented by: Insulin Glargine (Lantus Solostar) 25 units SUBCUT BEDTIME ON LICENSE OF [facility] Last Admin: 04/25/20 21:04 Dose: 25 units Documented by: Isosorbide Mononitrate (Imdur) 30 mg PO DAILY ON LICENSE OF [facility] Last Admin: 04/26/20 09:00 Dose: 30 mg Documented by: Isosorbide Mononitrate (Imdur) 30 mg PO ONETIME ONE Stop: 04/24/20 22:42 Last Admin: 04/24/20 23:09 Dose: 30 mg Documented by: Losartan Potassium (Cozaar) 25 mg PO DAILY ON LICENSE OF [facility] Last Admin: 04/26/20 09:02 Dose: 25 mg Documented by: Metoclopramide HCl (Reglan) 10 mg PO Q8H ON LICENSE OF [facility] Last Admin: 04/24/20 22:30 Dose: Not Given Documented by: Metoclopramide HCl (Reglan) 10 mg PO Q8H PRN PRN Reason: Nausea Metoclopramide HCl (Reglan) 5 mg IVPUSH Q6H ON LICENSE OF [facility] Last Admin: 04/26/20 13:49 Dose: 5 mg Documented by: Metoprolol Tartrate (Lopressor) 50 mg PO BID ON LICENSE OF [facility] Last Admin: 04/26/20 08:55 Dose: 50 mg Documented by: Morphine Sulfate (Morphine) 4 mg IVPUSH ONETIME ONE Stop: 04/24/20 15:24 Last Admin: 04/24/20 15:29 Dose: 4 mg Documented by: Morphine Sulfate (Morphine) Confirm Administered Dose 2 mg .ROUTE .STK-MED ONE Stop: 04/25/20 09:36 Last Admin: 04/25/20 09:42 Dose: Not Given Documented by: Morphine Sulfate (Morphine) 1 mg IVPUSH ONETIME STA Stop: 04/25/20 09:42 Last Admin: 04/25/20 09:37 Dose: 1 mg Documented by: Morphine Sulfate (Morphine) 3 mg IVPUSH Q3H PRN PRN Reason: Pain Last Admin: 04/25/20 20:13 Dose: 3 mg Documented by: Morphine Sulfate (Morphine) 2 mg IVPUSH Q3H PRN PRN Reason: Pain Last Admin: 04/26/20 14:18 Dose: 2 mg Documented by: Pantoprazole Sodium (Protonix) 40 mg PO BIDAC [place] Last Admin: 04/26/20 07:47 Dose: 40 mg Documented by: Ranolazine (Ranexa) 500 mg PO BID [place] Tamsulosin HCl (Flomax) 0.4 mg PO BEDTIME [place] Topiramate (Topamax) 25 mg PO BID ON LICENSE OF [facility] Last Admin: 04/26/20 09:00 Dose: 25 mg Documented by:
[2020-04-26 11:55] VITALS: BP 130/86; PULSE 81
== END 2020-04-26 14:20 ==
LOC: MW.ED 15:11 → MW.MS 16:31 → UNDOADMOB 19:12 → MW.MS 19:12
PROVIDERS: ADMIT Student in an Organized Health Care Education/Training Program; ATTEND Student in an Organized Health Care Education/Training Program
DX: R07.9 Chest pain, unspecified (principal); I42.9 Cardiomyopathy, unspecified; I13.0 Hypertensive heart and chronic kidney disease with heart failure and stage 1 through stage 4 chronic kidney disease, or unspecified chronic kidney disease; I50.20 Unspecified systolic (congestive) heart failure; E10.65 Type 1 diabetes mellitus with hyperglycemia; E10.22 Type 1 diabetes mellitus with diabetic chronic kidney disease; N18.9 Chronic kidney disease, unspecified; Z20.822 Contact with and (suspected) exposure to COVID-19; K29.60 Other gastritis without bleeding; E78.00 Pure hypercholesterolemia, unspecified; M54.9 Dorsalgia, unspecified; G89.29 Other chronic pain; G93.2 Benign intracranial hypertension; R55 Syncope and collapse; R91.8 Other nonspecific abnormal finding of lung field; Z79.899 Other long term (current) drug therapy; Z79.82 Long term (current) use of aspirin; Z95.0 Presence of cardiac pacemaker; Z95.1 Presence of aortocoronary bypass graft; Z98.890 Other specified postprocedural states
CPT/HCPCS: 36415; 70450; 71045; 80053; 82962; 83735; 84100; 84484; 85025; 85379; 93005; 96374; 96375; 96376; 99285; A9270; G0378; J1815; J2270; J2765; J7030; J7040; U0002; 93010; 99283

== ENCOUNTER 2020-06-09 15:35 | Inpatient (IN) | payer MEDICARE, MEDICAID ==
[2020-06-09] MEDS ORDERED: Ondansetron 4 MG/2 ML SDV IVPUSH ONE (15:42)
[2020-06-09] MEDS ORDERED: Sodium Chloride 0.9% 10 ML Syringe FLUSH PRN (15:42)
[2020-06-09] MEDS ORDERED: Pantoprazole 40 MG in Sodium Chloride 0.9% 10 ML IV ONE (15:42)
[2020-06-09] MEDS ORDERED: Sodium Chloride 0.9% 2.5 ML Syringe FLUSH PRN (15:42)
[2020-06-09] MEDS ORDERED: Sodium Chloride 0.9% 1,000 ML IV ONE (15:44)
[2020-06-09] MEDS ORDERED: Glucagon,Human Recombinant 1 MG Vial IM PRN ×3 (15:45→17:08)
[2020-06-09] MEDS ORDERED: 50% Dextrose in Water 50 ML Syringe IV PRN ×3 (15:45→17:08)
[2020-06-09] MEDS ORDERED: Insulin NPH/Insulin Regular,Human 70-30 100 Units/ML 10 ML Vial SUBCUT ONE (15:45)
[2020-06-09] MEDS ORDERED: Insulin Regular, Human 100 Units/ML 10 ML Vial IVPUSH ONE ×3 (16:09→17:08)
--- NOTE | 2020-06-09 16:18 | CR ---
HISTORY: Weakness COMPARISON: 04/24/2020 FINDINGS: A portable erect AP view of the chest was obtained at 1554 hours. The lungs remain clear. No focal or diffuse infiltrates are present. The heart remains normal in size. Again seen is a left-sided defibrillator with leads entering the left subclavian vein and terminating in the right atrium, right ventricle, and coronary sinus. The mediastinum is normal in appearance. The osseous structures are normal in appearance for the patient`s age. IMPRESSION: No active disease seen in the chest. Dictated by Kojo Canela MD @ Jun 09 2020 4:16PM Signed by Dr. Kojo Canela @ Jun 09 2020 4:17PM
--- NOTE | 2020-06-09 16:59 | PCM.PRNOTE ---
- Free Text/Narrative Note: alvino Note I was called to ER to provide IV access. A 22 TN was placed in dorsum of right hand. Flushes well. 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
[2020-06-09] MEDS ORDERED: Sodium Chloride 0.9% 1,000 ML IV SCH (17:15)
--- NOTE | 2020-06-09 17:15 | EDM.PDOC ---
ED HPI GENERAL MEDICAL PROBLEM - General Chief Complaint: Diabetic Complaint Stated Complaint: EMS Time Seen by Provider: 06/09/20 15:36 Source of Information: Reports: Patient, EMS - History of Present Illness INITIAL COMMENTS - FREE TEXT/NARRATIVE: History of present illness: [] EMS and the patient say that he called EMS. He lives alone. He was weak and vomiting coffee-ground material that appeared to be dried blood. The patient started this this morning and last night. The patient denies any pain. He is easy to arouse but otherwise he has his eyes closed and he does not interact with the environment. The patient is known to be diabetic. Review of systems: As per history of present illness and below otherwise all systems reviewed and negative. Past medical history: As per history of present illness and as reviewed below otherwise noncontributory. Surgical history: As per history of present illness and as reviewed below otherwise noncontributory. Social history: No reported history of drug or alcohol abuse. Family history: As per history of present illness and as reviewed below otherwise noncontributory. Physical exam: Constitutional - well developed, well-nourished and in no acute distress HEENT - normocephalic, no evidence of trauma - external nose and mouth normal - no mass in neck and no JVD - mucosae moist EYES - full EOM, PERRL, no icterus - no evidence of inflammation, injection, or drainage Respiratory - no respiratory distress, equal bilateral expansion, lungs clear to auscultation and no abnormal lung sounds Cardiovascular - Regular Rhythm with S1 and S2 appreciated and no murmur, gallop or rub. GI - abdomen soft without distension or organomegaly - normal bowel sounds - no guard or rebound Musculoskeletal no gross deformity of long bones or joints - no tenderness, swelling or edema Neurologic -appears obtunded but when you call him by voice he arouses and he responds to command. Oriented times four - CN II-XII grossly intact - motor s ensory and coordination symmetrically normal Psychiatric - appropriate mood and affect with normal thought content Hematologic - No petechiae or purpura - mucosa appropriate color and sclera not pale - normal nail bed color and refill Integument - no rash or evidence of trauma - normal turgor Diagnostics: [] Therapeutics: [] Impression: [] Plan: [] Definitive disposition and diagnosis as appropriate pending reevaluation and review of above. - Related Data Allergies Allergy/AdvReac Type Severity Reaction Status Date / Time No Known Allergies Allergy Verified 06/09/20 15:41 Home Meds: Home Meds Insulin Aspart [NovoLOG] See Protocol SUBCUT TIDMEALS #0 12/25/16 [Rx] Metoprolol Tartrate 25 mg PO BID 01/05/19 [History] Topiramate 25 mg PO BID 01/05/19 [History] atorvaSTATin [Lipitor] 10 mg PO DAILY 01/05/19 [History] Insulin Lispro [Humalog Kwikpen U-100] 1 unit SQ ASDIRECTED 06/11/19 [History] Losartan [Cozaar] 25 mg PO DAILY 06/11/19 [History] DULoxetine [Cymbalta] 30 mg PO DAILY 11/02/19 [History] Pantoprazole Sodium [Protonix] 40 mg PO BID #60 tablet. 11/03/19 [Rx] Aspirin 81 mg PO DAILY 11/27/19 [History] Clopidogrel [Plavix] 75 mg PO DAILY 11/27/19 [History] Isosorbide Mononitrate [Isosorbide Mononitrate ER] 30 mg PO DAILY 11/27/19 [History] Losartan [Cozaar] 25 mg PO DAILY 04/24/20 [History] Apixaban [Eliquis] 04/25/20 [History] Past Medical History - Past Health History Medical/Surgical History: Denies Medical/Surgical History HEENT History: Reports: None Cardiovascular History: Reports: CAD, Heart Failure, High Cholesterol, Hypertension, [place], Pacemaker Other Cardiovascular History: Valve Problem Respiratory History: Reports: Other (See Below) Other Respiratory History: recently diagnosed with nodules in lungs Gastrointestinal History: Reports: None Genitourinary History: Reports: Chronic Renal Insuffiency Musculoskeletal History: Reports: Back Pain, Chronic Neurological History: Reports: Neuropathy, Diabetic, Other (See Below) Other Neuro History: Intracranial hypertension Psychiatric History: Reports: Anxiety, Depression Endocrine/Metabolic History: Reports: Diabetes, Type I 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 Hematologic History: Reports: None Immunologic History: Reports: None Oncologic (Cancer) History: Reports: None Dermatologic History: Reports: None - Infectious Disease History Infectious Disease History: Reports: None - Past Surgical History Head Surgeries/Procedures: Reports: None HEENT Surgical History: Reports: Oral Surgery Cardiovascular Surgical History: Reports: AICD, Coronary Artery Stent, Other (See Below) Respiratory Surgical History: Reports: None GI Surgical History: Reports: Cholecystectomy Other GI Surgeries/Procedures: hx of gall bladder removal Male Surgical History: Reports: None Endocrine Surgical History: Reports: None Neurological Surgical History: Reports: None Musculoskeletal Surgical History: Reports: None Oncologic Surgical History: Reports: None Dermatological Surgical History: Reports: None Social & Family History - Family History Family Medical History: No Pertinent Family History - Tobacco Use Tobacco Use Status *Q: Unknown Ever Used Tobacco - Caffeine Use Caffeine Use: Reports: None - Living Situation & Occupation Living situation: Reports: , with Spouse, with Family (2 kids) Occupation: Unemployed ED ROS GENERAL - Review of Systems Review Of Systems: Comprehensive ROS is negative, except as noted in HPI. ED EXAM, GENERAL - Physical Exam Exam: See Below Free Text/Narrative:: Physical exam is in the HPI #1 Interpretation EKG Interpretation Comments: EKG reveals a atrial ventricular pacemaker with a heart rate of 125 and an axis of -81 compared to 04/26/2020 there is no obvious change. Impression no acute injury Course - Vital Signs Text/Narrative:: 1817 hrs. When the lab reports were not available in the computer I checked the order status and they were not received by the lab. I did a right femoral stick with sterile technique and took 20 mL from the femoral artery u neventfully. Pressure held for 5 minutes afterwards. 1841 hrs. the patient glucose that persists in the 300s. Hemoglobin and is stable. The patient has delayed chemistries and therefore I have given 2 L of saline and insulin without knowing his potassium level. For now I will put him on lactated Ringer's at 150 an hour while we await lab reports. [address] Spaulding and patient admitted. Last Recorded V/S: Last Vital Signs Temp 36.3 C 06/09/20 15:36 Pulse 124 H 06/09/20 18:45 Resp 18 06/09/20 18:45 BP 155/107 H 06/09/20 18:45 Pulse Ox 99 06/09/20 18:45 - Orders/Labs/Meds Orders: Active Orders 24 hr Category Date Time Status Admission Status [Patient Status] [ADT] Stat ADT 06/09/20 19:12 Ordered Cardiac Monitoring [RC] . DIRECTED Care 06/09/20 19:12 Ordered EKG Documentation Completion [RC] AM Care 06/09/20 15:42 Active TYPE AND SCREEN [BBK] Stat Lab 06/09/20 18:17 Received Dextrose 50% in Water Med 06/09/20 17:08 Active 50 ml IV ASDIRECTED PRN Glucagon,Human Recombinant [GlucaGen] Med 06/09/20 17:08 Active 1 mg IM ASDIRECTED PRN Lactated Ringers [Ringers, Lactated] 1,000 ml Med 06/09/20 18:45 Active IV ASDIRECTED Sodium Chloride 0.9% [Normal Saline] 1,000 ml Med 06/09/20 17:15 Active IV ASDIRECTED Sodium Chloride 0.9% [Saline Flush] Med 06/09/20 15:42 Active 10 ml FLUSH ASDIRECTED PRN Sodium Chloride 0.9% [Saline Flush] Med 06/09/20 15:42 Active 2.5 ml FLUSH ASDIRECTED PRN Saline Lock Insert [OM.PC] Stat Oth 06/09/20 15:42 Ordered Medication Orders Dextrose/Water (50% Dextrose In Water 50 Ml Syringe) 50 ml IV ASDIRECTED PRN PRN Reason: Hypoglycemia Glucagon (Glucagon,Human Recombinant 1 Mg Vial) 1 mg IM ASDIRECTED PRN PRN Reason: Hypoglycemia Sodium Chloride (Normal Saline) 1,000 mls @ 999 mls/hr IV ASDIRECTED ESTEPHANIA Last Admin: 06/09/20 17:12 Dose: 999 mls/hr Documented by: ALBERTO Lactated Ringer's (Ringers, Lactated) 1,000 mls @ 150 mls/hr IV ASDIRECTED REPLACED BY [facility] Last Admin: 06/09/20 18:54 Dose: 150 mls/hr Documented by: ALBERTO Sodium Chloride (Sodium Chloride 0.9% 10 Ml Syringe) 10 ml FLUSH ASDIRECTED PRN PRN Reason: Keep Vein Open Sodium Chloride (Sodium Chloride 0.9% 2.5 Ml Syringe) 2.5 ml FLUSH ASDIRECTED PRN PRN Reason: Keep Vein Open Labs: Laboratory Tests 06/09/20 06/09/20 06/09/20 Range/Units 15:54 16:28 17:09 WBC (4.0-11.0) K/uL RBC (4.50-5.90) M/uL Hgb (13.0-17.0) g/dL Hct (38.0-50.0) % MCV (80.0-98.0) fL MCH (27.0-32.0) pg MCHC (31.0-37.0) g/dL RDW Std Deviation (28.0-62.0) fl RDW Coeff of Charles (11.0-15.0) % Plt Count (150-400) K/uL MPV (7.40-12.00) fL Add Manual Diff Neutrophils % (Manual) (48.0-80.0) % Lymphocytes % (Manual) (16.0-40.0) % Monocytes % (Manual) (0.0-15.0) % Nucleated RBC % /100WBC Absolute Seg Neuts (1.4-5.7) Lymphocytes # (Manual) (0.6-2.4) Monocytes # (Manual) (0.0-0.8) Nucleated RBCs # K/uL INR APTT (18.6-31.3) SEC ABG pH 7.059 L* (7.35-7.45) ABG pCO2 14 L (35-45) mmHG ABG pO2 109 H (75-100) mmHG ABG HCO3 4 L (22-26) mEq/L ABG Total CO2 3.6 ABG Base Excess -24.4 L (-2.0-2.0) Lactate (0.20-2.00) mmol/L Sodium (136-148) mmol/L Potassium (3.5-5.1) mmol/L Chloride (98-107) mmol/L Carbon Dioxide (21.0-32.0) mmol/L BUN (7.0-18.0) mg/dL Creatinine (0.8-1.3) mg/dL Est Cr Clr Drug Dosing Estimated GFR (MDRD) ml/min Glucose (74-106) mg/dL POC Glucose > 500 H (60-110) mg/dL Calcium (8.5-10.1) mg/dL Total Bilirubin (0.2-1.0) mg/dL AST (15-37) IU/L ALT (14-63) IU/L Alkaline Phosphatase (46-116) U/L Troponin I (0.000-0.056) ng/mL Total Protein (6.4-8.2) g/dL Albumin (3.4-5.0) g/dL Globulin (2.6-4.0) g/dL Albumin/Globulin Ratio (0.9-1.6) Lipase (73-393) U/L Urine Color YELLOW Urine Appearance HAZY Urine pH 5.5 (5.0-8.0) Ur Specific [place] 1.025 (1.001-1.035) Urine Protein TRACE H (NEGATIVE) mg/dL Urine Glucose (UA) 250 H (NEGATIVE) mg/dL Urine Ketones >=80 (NEGATIVE) mg/dL Urine Occult Blood TRACE-INTACT H (NEGATIVE) Urine Nitrite NEGATIVE (NEGATIVE) Urine Bilirubin NEGATIVE (NEGATIVE) Urine Urobilinogen 0.2 (<2.0) EU/dL Ur Leukocyte Esterase NEGATIVE (NEGATIVE) Urine RBC 0-1 (0-2/HPF) Urine WBC 0-1 (0-5/HPF) Ur Epithelial Cells RARE (NONE-FEW) Urine Bacteria RARE (NEGATIVE) Ketones (NEG) SARS-CoV-2 RNA (ABBIE) (NEGATIVE) 06/09/20 06/09/20 06/09/20 Range/Units 17:17 17:20 18:17 WBC 19.77 H (4.0-11.0) K/uL RBC 4.86 (4.50-5.90) M/uL Hgb 15.4 (13.0-17.0) g/dL Hct 44.3 (38.0-50.0) % MCV 91.2 (80.0-98.0) fL MCH 31.7 (27.0-32.0) pg MCHC 34.8 (31.0-37.0) g/dL RDW Std Deviation 43.1 (28.0-62.0) fl RDW Coeff of Charles 13 (11.0-15.0) % Plt Count 268 (150-400) K/uL MPV 10.30 (7.40-12.00) fL Add Manual Diff YES Neutrophils % (Manual) 94 H (48.0-80.0) % Lymphocytes % (Manual) 4 L (16.0-40.0) % Monocytes % (Manual) 2 (0.0-15.0) % Nucleated RBC % 0.0 /100WBC Absolute Seg Neuts 18.6 H (1.4-5.7) Lymphocytes # (Manual) 0.8 (0.6-2.4) Monocytes # (Manual) 0.4 (0.0-0.8) Nucleated RBCs # 0 K/uL INR APTT (18.6-31.3) SEC ABG pH (7.35-7.45) ABG pCO2 (35-45) mmHG ABG pO2 (75-100) mmHG ABG HCO3 (22-26) mEq/L ABG Total CO2 ABG Base Excess (-2.0-2.0) Lactate 3.2 H* (0.20-2.00) mmol/L Sodium (136-148) mmol/L Potassium (3.5-5.1) mmol/L Chloride (98-107) mmol/L Carbon Dioxide (21.0-32.0) mmol/L BUN (7.0-18.0) mg/dL Creatinine (0.8-1.3) mg/dL Est Cr Clr Drug Dosing Estimated GFR (MDRD) ml/min Glucose (74-106) mg/dL POC Glucose (60-110) mg/dL Calcium (8.5-10.1) mg/dL Total Bilirubin (0.2-1.0) mg/dL AST (15-37) IU/L ALT (14-63) IU/L Alkaline Phosphatase (46-116) U/L Troponin I (0.000-0.056) ng/mL Total Protein (6.4-8.2) g/dL Albumin (3.4-5.0) g/dL Globulin (2.6-4.0) g/dL Albumin/Globulin Ratio (0.9-1.6) Lipase (73-393) U/L Urine Color Urine Appearance Urine pH (5.0-8.0) Ur Specific [place] (1.001-1.035) Urine Protein (NEGATIVE) mg/dL Urine Glucose (UA) (NEGATIVE) mg/dL Urine Ketones (NEGATIVE) mg/dL Urine Occult Blood (NEGATIVE) Urine Nitrite (NEGATIVE) Urine Bilirubin (NEGATIVE) Urine Urobilinogen (<2.0) EU/dL Ur Leukocyte Esterase (NEGATIVE) Urine RBC (0-2/HPF) Urine WBC (0-5/HPF) Ur Epithelial Cells (NONE-FEW) Urine Bacteria (NEGATIVE) Ketones (NEG) SARS-CoV-2 RNA (ABBIE) NEGATIVE (NEGATIVE) 06/09/20 06/09/20 06/09/20 Range/Units 18:17 18:17 18:17 WBC (4.0-11.0) K/uL RBC (4.50-5.90) M/uL Hgb (13.0-17.0) g/dL Hct (38.0-50.0) % MCV (80.0-98.0) fL MCH (27.0-32.0) pg MCHC (31.0-37.0) g/dL RDW Std Deviation (28.0-62.0) fl RDW Coeff of Charles (11.0-15.0) % Plt Count (150-400) K/uL MPV (7.40-12.00) fL Add Manual Diff Neutrophils % (Manual) (48.0-80.0) % Lymphocytes % (Manual) (16.0-40.0) % Monocytes % (Manual) (0.0-15.0) % Nucleated RBC % /100WBC Absolute Seg Neuts (1.4-5.7) Lymphocytes # (Manual) (0.6-2.4) Monocytes # (Manual) (0.0-0.8) Nucleated RBCs # K/uL INR 1.11 APTT 19.5 (18.6-31.3) SEC ABG pH (7.35-7.45) ABG pCO2 (35-45) mmHG ABG pO2 (75-100) mmHG ABG HCO3 (22-26) mEq/L ABG Total CO2 ABG Base Excess (-2.0-2.0) Lactate (0.20-2.00) mmol/L Sodium 141 (136-148) mmol/L Potassium 4.2 (3.5-5.1) mmol/L Chloride 105 (98-107) mmol/L Carbon Dioxide 7.0 L (21.0-32.0) mmol/L BUN 22 H (7.0-18.0) mg/dL Creatinine 1.5 H (0.8-1.3) mg/dL Est Cr Clr Drug Dosing TNP Estimated GFR (MDRD) 48.6 ml/min Glucose 383 H (74-106) mg/dL POC Glucose (60-110) mg/dL Calcium 7.8 L (8.5-10.1) mg/dL Total Bilirubin 1.2 H (0.2-1.0) mg/dL AST 15 (15-37) IU/L ALT 24 (14-63) IU/L Alkaline Phosphatase 133 H (46-116) U/L Troponin I < 0.050 (0.000-0.056) ng/mL Total Protein 6.9 (6.4-8.2) g/dL Albumin 4.3 (3.4-5.0) g/dL Globulin 2.6 (2.6-4.0) g/dL Albumin/Globulin Ratio 1.7 H (0.9-1.6) Lipase 43 L (73-393) U/L Urine Color Urine Appearance Urine pH (5.0-8.0) Ur Specific [place] (1.001-1.035) Urine Protein (NEGATIVE) mg/dL Urine Glucose (UA) (NEGATIVE) mg/dL Urine Ketones (NEGATIVE) mg/dL Urine Occult Blood (NEGATIVE) Urine Nitrite (NEGATIVE) Urine Bilirubin (NEGATIVE) Urine Urobilinogen (<2.0) EU/dL Ur Leukocyte Esterase (NEGATIVE) Urine RBC (0-2/HPF) Urine WBC (0-5/HPF) Ur Epithelial Cells (NONE-FEW) Urine Bacteria (NEGATIVE) Ketones (NEG) SARS-CoV-2 RNA (ABBIE) (NEGATIVE) 06/09/20 Range/Units 18:17 WBC (4.0-11.0) K/uL RBC (4.50-5.90) M/uL Hgb (13.0-17.0) g/dL Hct (38.0-50.0) % MCV (80.0-98.0) fL MCH (27.0-32.0) pg MCHC (31.0-37.0) g/dL RDW Std Deviation (28.0-62.0) fl RDW Coeff of Charles (11.0-15.0) % Plt Count (150-400) K/uL MPV (7.40-12.00) fL Add Manual Diff Neutrophils % (Manual) (48.0-80.0) % Lymphocytes % (Manual) (16.0-40.0) % Monocytes % (Manual) (0.0-15.0) % Nucleated RBC % /100WBC Absolute Seg Neuts (1.4-5.7) Lymphocytes # (Manual) (0.6-2.4) Monocytes # (Manual) (0.0-0.8) Nucleated RBCs # K/uL INR APTT (18.6-31.3) SEC ABG pH (7.35-7.45) ABG pCO2 (35-45) mmHG ABG pO2 (75-100) mmHG ABG HCO3 (22-26) mEq/L ABG Total CO2 ABG Base Excess (-2.0-2.0) Lactate (0.20-2.00) mmol/L Sodium (136-148) mmol/L Potassium (3.5-5.1) mmol/L Chloride (98-107) mmol/L Carbon Dioxide (21.0-32.0) mmol/L BUN (7.0-18.0) mg/dL Creatinine (0.8-1.3) mg/dL Est Cr Clr Drug Dosing Estimated GFR (MDRD) ml/min Glucose (74-106) mg/dL POC Glucose (60-110) mg/dL Calcium (8.5-10.1) mg/dL Total Bilirubin (0.2-1.0) mg/dL AST (15-37) IU/L ALT (14-63) IU/L Alkaline Phosphatase (46-116) U/L Troponin I (0.000-0.056) ng/mL Total Protein (6.4-8.2) g/dL Albumin (3.4-5.0) g/dL Globulin (2.6-4.0) g/dL Albumin/Globulin Ratio (0.9-1.6) Lipase (73-393) U/L Urine Color Urine Appearance Urine pH (5.0-8.0) Ur Specific [place] (1.001-1.035) Urine Protein (NEGATIVE) mg/dL Urine Glucose (UA) (NEGATIVE) mg/dL Urine Ketones (NEGATIVE) mg/dL Urine Occult Blood (NEGATIVE) Urine Nitrite (NEGATIVE) Urine Bilirubin (NEGATIVE) Urine Urobilinogen (<2.0) EU/dL Ur Leukocyte Esterase (NEGATIVE) Urine RBC (0-2/HPF) Urine WBC (0-5/HPF) Ur Epithelial Cells (NONE-FEW) Urine Bacteria (NEGATIVE) Ketones MODERATE H (NEG) SARS-CoV-2 RNA (ABBIE) (NEGATIVE) Meds: Medications Generic Name Dose Route Start Last Admin Trade Name Freq PRN Reason Stop Dose Admin Dextrose/Water 50 ml 06/09/20 17:08 50% Dextrose In Water 50 Ml Syringe IV ASDIRECTED PRN Hypoglycemia Glucagon 1 mg 06/09/20 17:08 Glucagon,Human Recombinant 1 Mg Vial IM ASDIRECTED PRN Hypoglycemia Sodium Chloride 1,000 mls @ 999 mls/hr 06/09/20 17:15 06/09/20 17:12 Normal Saline IV 999 mls/hr ASDIRECTED ESTEPHANIA Administration Lactated Ringer's 1,000 mls @ 150 mls/hr 06/09/20 18:45 06/09/20 18:54 Ringers, Lactated IV 150 mls/hr ASDIRECTED ESTEPHANIA Administration Sodium Chloride 10 ml 06/09/20 15:42 Sodium Chloride 0.9% 10 Ml Syringe FLUSH ASDIRECTED PRN Keep Vein Open Sodium Chloride 2.5 ml 06/09/20 15:42 Sodium Chloride 0.9% 2.5 Ml Syringe FLUSH ASDIRECTED PRN Keep Vein Open Discontinued Medications Generic Name Dose Route Start Last Admin Trade Name Freq PRN Reason Stop Dose Admin Dextrose/Water 50 ml 06/09/20 15:45 50% Dextrose In Water 50 Ml Syringe IV ASDIRECTED PRN Hypoglycemia Dextrose/Water 50 ml 06/09/20 17:06 50% Dextrose In Water 50 Ml Syringe IV ASDIRECTED PRN Hypoglycemia Glucagon 1 mg 06/09/20 15:45 Glucagon,Human Recombinant 1 Mg Vial IM ASDIRECTED PRN Hypoglycemia Glucagon 1 mg 06/09/20 17:06 Glucagon,Human Recombinant 1 Mg Vial IM ASDIRECTED PRN Hypoglycemia Pantoprazole Sodium 40 mg/ 10 mls @ 300 mls/hr 06/09/20 15:42 06/09/20 16:17 Sodium Chloride IV 06/09/20 15:43 300 mls/hr NOW ONE Administration Sodium Chloride 1,000 mls @ 1,000 mls/hr 06/09/20 15:44 06/09/20 16:17 Normal Saline IV 06/09/20 16:43 1,000 mls/hr .Bolus ONE Administration Insulin Human Isoph/Insulin Regular 10 unit 06/09/20 15:45 06/09/20 16:09 Insulin Nph/Insulin Regular,Human 70-30 100 Units/Ml 10 Ml Vial SUBCUT 06/09/20 15:46 Not Given ONETIME ONE Insulin Human Regular 10 unit 06/09/20 16:09 06/09/20 16:15 Insulin Regular, Human 100 Units/Ml 10 Ml Vial IVPUSH 06/09/20 16:10 10 unit ONETIME ONE Administration Protocol Insulin Human Regular 10 unit 06/09/20 17:06 06/09/20 17:15 Insulin Regular, Human 100 Units/Ml 10 Ml Vial IVPUSH 06/09/20 17:07 10 unit ONETIME ONE Administration Protocol Insulin Human Regular 10 unit 06/09/20 17:08 06/09/20 17:17 Insulin Regular, Human 100 Units/Ml 10 Ml Vial IVPUSH 06/09/20 17:09 Not Given ONETIME ONE Protocol Ondansetron HCl 4 mg 06/09/20 15:42 06/09/20 16:17 Ondansetron 4 Mg/2 Ml Sdv IVPUSH 06/09/20 15:43 4 mg ONETIME ONE Administration Departure - Departure Time of Disposition: 19:15 Disposition: Admitted As Inpatient 65 Clinical Impression: Upper GI bleed, DKA (diabetic ketoacidoses) - Discharge Information Referrals: PCP,None [Primary Care Provider] - Forms: ED Department Discharge Sepsis Event Note (ED) - Evaluation Sepsis Screening Result: No Definite Risk - Focused Exam Vital Signs: Vital Signs Temp Pulse Resp BP Pulse Ox 06/09/20 18:45 124 H 18 155/107 H 99 06/09/20 18:15 126 H 20 129/74 99 06/09/20 17:15 134 H 20 174/94 H 99 06/09/20 15:36 36.3 C 124 H 18 158/100 H 99 - My Orders Last 24 Hours: My Active Orders 06/09/20 15:42 EKG Documentation Completion [RC] AM Sodium Chloride 0.9% [Saline Flush] 10 ml FLUSH ASDIRECTED PRN Sodium Chloride 0.9% [Saline Flush] 2.5 ml FLUSH ASDIRECTED PRN Saline Lock Insert [OM.PC] Stat 06/09/20 17:08 Dextrose 50% in Water 50 ml IV ASDIRECTED PRN Glucagon,Human Recombinant [GlucaGen] 1 mg IM ASDIRECTED PRN 06/09/20 17:15 Sodium Chloride 0.9% [Normal Saline] 1,000 ml IV ASDIRECTED 06/09/20 18:17 TYPE AND SCREEN [BBK] Stat 06/09/20 18:45 Lactated Ringers [Ringers, Lactated] 1,000 ml IV ASDIRECTED 06/09/20 19:12 Admission Status [Patient Status] [ADT] Stat Cardiac Monitoring [RC] . DIRECTED - Assessment/Plan Last 24 Hours: My Active Orders 06/09/20 15:42 EKG Documentation Completion [RC] AM Sodium Chloride 0.9% [Saline Flush] 10 ml FLUSH ASDIRECTED PRN Sodium Chloride 0.9% [Saline Flush] 2.5 ml FLUSH ASDIRECTED PRN Saline Lock Insert [OM.PC] Stat 06/09/20 17:08 Dextrose 50% in Water 50 ml IV ASDIRECTED PRN Glucagon,Human Recombinant [GlucaGen] 1 mg IM ASDIRECTED PRN 06/09/20 17:15 Sodium Chloride 0.9% [Normal Saline] 1,000 ml IV ASDIRECTED 06/09/20 18:17 TYPE AND SCREEN [BBK] Stat 06/09/20 18:45 Lactated Ringers [Ringers, Lactated] 1,000 ml IV ASDIRECTED 06/09/20 19:12 Admission Status [Patient Status] [ADT] Stat Cardiac Monitoring [RC] . DIRECTED
[2020-06-09] MEDS ORDERED: Lactated Ringers 1,000 ML IV SCH ×2 (18:45→21:00)
[2020-06-09 19:00] LABS: BLOOD UREA NITROGEN,BUN 22 mg/dL (7.0-18.0); CHLORIDE,CL 105 mmol/L (98-107); GLUCOSE RANDOM 383 mg/dL (74-106); LIPASE 43 U/L (73-393); POTASSIUM,K 4.2 mmol/L (3.5-5.1); SODIUM,NA 141 mmol/L (136-148)
[2020-06-09] MEDS ORDERED: Lactated Ringers 1,000 ML IV ONE (20:00)
[2020-06-09] MEDS: Ondansetron 4 MG/2 ML SDV IVPUSH PRN (20:13)
[2020-06-09] MEDS ORDERED: Ondansetron 4 MG/2 ML SDV ONE (20:13)
[2020-06-09] MEDS ORDERED: Insulin Regular in 0.9 % NACL 100 ML IV SCH (20:40)
--- NOTE | 2020-06-09 21:17 | PN ---
THC Physician - Brief Progress [id number]/02/2021 21:11[facility] [place] - SINDI (TREMAINE) - SINDI EVELIO CARRION KalpanaDate of Service 06/09/2020 21:11HPI/Events of Note Mr Mills is admitted for DKA. He is nauseous on cam and vomiting. His vitals are ok and he is on room air. He has a paced rhythm.CXR is clear but shows an ICD. He has a h/o CAD with stents. - on DK A protocol- Got 2 L in the ED.- Still acidotic which will take time to correct. No bicarb needed for now. - review need for antiplatelets given h/o stents. He does have some coffee ground emesis for whi ch he is on protonix. So antiplatelet therapy related decisions can wait for now. D/w RN at bedside.I nterventions Major-Hyperglycemia - active titration of insulin therapyMinor-Clinical assessment - ord ering diagnostic tests
--- NOTE | 2020-06-09 21:18 | PCM.HP.2 ---
H&P History of Present Illness - General Date of Service: 06/09/20 Admit Problem/Dx: Admission Diagnosis/Problem Admission Diagnosis/Problem Diabetic ketoacidosis - History of Present Illness Initial Comments - Free Text/Narative: 54 yo PMH of cardiomyopathy with ICD, systolic HF, s/p CABG, DM type 1, HTN, gastroparesis who presents with nausea, vomiting, and coffee ground emesis. Patient denies any fever, shortness of breath, chest pain, or blood in stool, or dark stool. In the ED he was noted to be acidotic with elevated blood glucose. He was given one liter of fluids and 10 units of insulin x2. - Related Data Allergies/Adverse Reactions: Allergies Allergy/AdvReac Type Severity Reaction Status Date / Time No Known Allergies Allergy Verified 06/09/20 15:41 Home Medications: Home Meds Insulin Aspart [NovoLOG] See Protocol SUBCUT TIDMEALS #0 12/25/16 [Rx] Metoprolol Tartrate 25 mg PO BID 01/05/19 [History] Topiramate 25 mg PO BID 01/05/19 [History] atorvaSTATin [Lipitor] 10 mg PO DAILY 01/05/19 [History] Insulin Lispro [Humalog Kwikpen U-100] 1 unit SQ ASDIRECTED 06/11/19 [History] Losartan [Cozaar] 25 mg PO DAILY 06/11/19 [History] DULoxetine [Cymbalta] 30 mg PO DAILY 11/02/19 [History] Pantoprazole Sodium [Protonix] 40 mg PO BID #60 tablet. 11/03/19 [Rx] Aspirin 81 mg PO DAILY 11/27/19 [History] Clopidogrel [Plavix] 75 mg PO DAILY 11/27/19 [History] Isosorbide Mononitrate [Isosorbide Mononitrate ER] 30 mg PO DAILY 11/27/19 [History] Losartan [Cozaar] 25 mg PO DAILY 04/24/20 [History] Apixaban [Eliquis] 04/25/20 [History] Past Medical History - Past Health History Medical/Surgical History: Denies Medical/Surgical History HEENT History: Reports: None Cardiovascular History: Reports: CAD, Heart Failure, High Cholesterol, Hypertension, CA, Pacemaker Other Cardiovascular History: Valve Problem Respiratory History: Reports: Other (See Below) Other Respiratory History: recently diagnosed with nodules in lungs Gastrointestinal History: Reports: None Genitourinary History: Reports: Chronic Renal Insuffiency Musculoskeletal History: Reports: Back Pain, Chronic Neurological History: Reports: Neuropathy, Diabetic, Other (See Below) Other Neuro History: Intracranial hypertension Psychiatric History: Reports: Anxiety, Depression Endocrine/Metabolic History: Reports: Diabetes, Type I 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: None Hematologic History: Reports: None Immunologic History: Reports: None Oncologic (Cancer) History: Reports: None Dermatologic History: Reports: None - Infectious Disease History Infectious Disease History: Reports: None - Past Surgical History Head Surgeries/Procedures: Reports: None HEENT Surgical History: Reports: Oral Surgery Cardiovascular Surgical History: Reports: AICD, Coronary Artery Stent, Other (See Below) Respiratory Surgical History: Reports: None GI Surgical History: Reports: Cholecystectomy Other GI Surgeries/Procedures: hx of gall bladder removal Male Surgical History: Reports: None Endocrine Surgical History: Reports: None Neurological Surgical History: Reports: None Musculoskeletal Surgical History: Reports: None Oncologic Surgical History: Reports: None Dermatological Surgical History: Reports: None Social & Family History - Family History Family Medical History: No Pertinent Family History - Tobacco Use Tobacco Use Status *Q: Unknown Ever Used Tobacco - Caffeine Use Caffeine Use: Reports: None - Living Situation & Occupation Living situation: Reports: , with Spouse, with Family (2 kids) Occupation: Unemployed H&P Review of Systems - Review of Systems: Review Of Systems: Comprehensive ROS is negative, except as noted in HPI. Exam - Exam Exam: See Below - Vital Signs Vital Signs: Last Vital Signs Temp 36.3 C 06/09/20 15:36 Pulse 124 H 06/09/20 18:45 Resp 18 06/09/20 18:45 BP 155/107 H 06/09/20 18:45 Pulse Ox 99 06/09/20 18:45 - Exam General: Alert, Oriented HEENT: Mucosa Moist & [place], Other (small bilous emesis) Lungs: Clear to Auscultation, Normal Respiratory Effort Cardiovascular: Regular Rhythm, Tachycardia GI/Abdominal Exam: Normal Bowel Sounds, Soft, Non-Tender, No Distention Rectal (Males) Exam: Normal Exam, Other (no stool). No: Black Stool Extremities: Normal Inspection, Non-Tender, No Pedal Edema Skin: Warm, Dry, Intact - Patient Data Lab Results Last 24 hrs: Laboratory Results - last 24 hr 06/09/20 06/09/20 06/09/20 Range/Units 15:54 16:28 17:09 WBC (4.0-11.0) K/uL RBC (4.50-5.90) M/uL Hgb (13.0-17.0) g/dL Hct (38.0-50.0) % MCV (80.0-98.0) fL MCH (27.0-32.0) pg MCHC (31.0-37.0) g/dL RDW Std Deviation (28.0-62.0) fl RDW Coeff of Charles (11.0-15.0) % Plt Count (150-400) K/uL MPV (7.40-12.00) fL Add Manual Diff Neutrophils % (Manual) (48.0-80.0) % Lymphocytes % (Manual) (16.0-40.0) % Monocytes % (Manual) (0.0-15.0) % Nucleated RBC % /100WBC Absolute Seg Neuts (1.4-5.7) Lymphocytes # (Manual) (0.6-2.4) Monocytes # (Manual) (0.0-0.8) Nucleated RBCs # K/uL INR APTT (18.6-31.3) SEC ABG pH 7.059 L* (7.35-7.45) ABG pCO2 14 L (35-45) mmHG ABG pO2 109 H (75-100) mmHG ABG HCO3 4 L (22-26) mEq/L ABG Total CO2 3.6 ABG Base Excess -24.4 L (-2.0-2.0) Lactate (0.20-2.00) mmol/L Sodium (136-148) mmol/L Potassium (3.5-5.1) mmol/L Chloride (98-107) mmol/L Carbon Dioxide (21.0-32.0) mmol/L BUN (7.0-18.0) mg/dL Creatinine (0.8-1.3) mg/dL Est Cr Clr Drug Dosing Estimated GFR (MDRD) ml/min Glucose (74-106) mg/dL POC Glucose > 500 H (60-110) mg/dL Calcium (8.5-10.1) mg/dL Total Bilirubin (0.2-1.0) mg/dL AST (15-37) IU/L ALT (14-63) IU/L Alkaline Phosphatase (46-116) U/L Troponin I (0.000-0.056) ng/mL Total Protein (6.4-8.2) g/dL Albumin (3.4-5.0) g/dL Globulin (2.6-4.0) g/dL Albumin/Globulin Ratio (0.9-1.6) Lipase (73-393) U/L Urine Color YELLOW Urine Appearance HAZY Urine pH 5.5 (5.0-8.0) Ur Specific Bulger 1.025 (1.001-1.035) Urine Protein TRACE H (NEGATIVE) mg/dL Urine Glucose (UA) 250 H (NEGATIVE) mg/dL Urine Ketones >=80 (NEGATIVE) mg/dL Urine Occult Blood TRACE-INTACT H (NEGATIVE) Urine Nitrite NEGATIVE (NEGATIVE) Urine Bilirubin NEGATIVE (NEGATIVE) Urine Urobilinogen 0.2 (<2.0) EU/dL Ur Leukocyte Esterase NEGATIVE (NEGATIVE) Urine RBC 0-1 (0-2/HPF) Urine WBC 0-1 (0-5/HPF) Ur Epithelial Cells RARE (NONE-FEW) Urine Bacteria RARE (NEGATIVE) Ketones (NEG) SARS-CoV-2 RNA (ABBIE) (NEGATIVE) Blood Type Antibody Screen 06/09/20 06/09/20 06/09/20 Range/Units 17:17 17:20 18:17 WBC 19.77 H (4.0-11.0) K/uL RBC 4.86 (4.50-5.90) M/uL Hgb 15.4 (13.0-17.0) g/dL Hct 44.3 (38.0-50.0) % MCV 91.2 (80.0-98.0) fL MCH 31.7 (27.0-32.0) pg MCHC 34.8 (31.0-37.0) g/dL RDW Std Deviation 43.1 (28.0-62.0) fl RDW Coeff of Charles 13 (11.0-15.0) % Plt Count 268 (150-400) K/uL MPV 10.30 (7.40-12.00) fL Add Manual Diff YES Neutrophils % (Manual) 94 H (48.0-80.0) % Lymphocytes % (Manual) 4 L (16.0-40.0) % Monocytes % (Manual) 2 (0.0-15.0) % Nucleated RBC % 0.0 /100WBC Absolute Seg Neuts 18.6 H (1.4-5.7) Lymphocytes # (Manual) 0.8 (0.6-2.4) Monocytes # (Manual) 0.4 (0.0-0.8) Nucleated RBCs # 0 K/uL INR APTT (18.6-31.3) SEC ABG pH (7.35-7.45) ABG pCO2 (35-45) mmHG ABG pO2 (75-100) mmHG ABG HCO3 (22-26) mEq/L ABG Total CO2 ABG Base Excess (-2.0-2.0) Lactate 3.2 H* (0.20-2.00) mmol/L Sodium (136-148) mmol/L Potassium (3.5-5.1) mmol/L Chloride (98-107) mmol/L Carbon Dioxide (21.0-32.0) mmol/L BUN (7.0-18.0) mg/dL Creatinine (0.8-1.3) mg/dL Est Cr Clr Drug Dosing Estimated GFR (MDRD) ml/min Glucose (74-106) mg/dL POC Glucose (60-110) mg/dL Calcium (8.5-10.1) mg/dL Total Bilirubin (0.2-1.0) mg/dL AST (15-37) IU/L ALT (14-63) IU/L Alkaline Phosphatase (46-116) U/L Troponin I (0.000-0.056) ng/mL Total Protein (6.4-8.2) g/dL Albumin (3.4-5.0) g/dL Globulin (2.6-4.0) g/dL Albumin/Globulin Ratio (0.9-1.6) Lipase (73-393) U/L Urine Color Urine Appearance Urine pH (5.0-8.0) Ur Specific Bulger (1.001-1.035) Urine Protein (NEGATIVE) mg/dL Urine Glucose (UA) (NEGATIVE) mg/dL Urine Ketones (NEGATIVE) mg/dL Urine Occult Blood (NEGATIVE) Urine Nitrite (NEGATIVE) Urine Bilirubin (NEGATIVE) Urine Urobilinogen (<2.0) EU/dL Ur Leukocyte Esterase (NEGATIVE) Urine RBC (0-2/HPF) Urine WBC (0-5/HPF) Ur Epithelial Cells (NONE-FEW) Urine Bacteria (NEGATIVE) Ketones (NEG) SARS-CoV-2 RNA (ABBIE) NEGATIVE (NEGATIVE) Blood Type Antibody Screen 06/09/20 06/09/20 06/09/20 Range/Units 18:17 18:17 18:17 WBC (4.0-11.0) K/uL RBC (4.50-5.90) M/uL Hgb (13.0-17.0) g/dL Hct (38.0-50.0) % MCV (80.0-98.0) fL MCH (27.0-32.0) pg MCHC (31.0-37.0) g/dL RDW Std Deviation (28.0-62.0) fl RDW Coeff of Charles (11.0-15.0) % Plt Count (150-400) K/uL MPV (7.40-12.00) fL Add Manual Diff Neutrophils % (Manual) (48.0-80.0) % Lymphocytes % (Manual) (16.0-40.0) % Monocytes % (Manual) (0.0-15.0) % Nucleated RBC % /100WBC Absolute Seg Neuts (1.4-5.7) Lymphocytes # (Manual) (0.6-2.4) Monocytes # (Manual) (0.0-0.8) Nucleated RBCs # K/uL INR 1.11 APTT 19.5 (18.6-31.3) SEC ABG pH (7.35-7.45) ABG pCO2 (35-45) mmHG ABG pO2 (75-100) mmHG ABG HCO3 (22-26) mEq/L ABG Total CO2 ABG Base Excess (-2.0-2.0) Lactate (0.20-2.00) mmol/L Sodium 141 (136-148) mmol/L Potassium 4.2 (3.5-5.1) mmol/L Chloride 105 (98-107) mmol/L Carbon Dioxide 7.0 L (21.0-32.0) mmol/L BUN 22 H (7.0-18.0) mg/dL Creatinine 1.5 H (0.8-1.3) mg/dL Est Cr Clr Drug Dosing TNP Estimated GFR (MDRD) 48.6 ml/min Glucose 383 H (74-106) mg/dL POC Glucose (60-110) mg/dL Calcium 7.8 L (8.5-10.1) mg/dL Total Bilirubin 1.2 H (0.2-1.0) mg/dL AST 15 (15-37) IU/L ALT 24 (14-63) IU/L Alkaline Phosphatase 133 H (46-116) U/L Troponin I < 0.050 (0.000-0.056) ng/mL Total Protein 6.9 (6.4-8.2) g/dL Albumin 4.3 (3.4-5.0) g/dL Globulin 2.6 (2.6-4.0) g/dL Albumin/Globulin Ratio 1.7 H (0.9-1.6) Lipase 43 L (73-393) U/L Urine Color Urine Appearance Urine pH (5.0-8.0) Ur Specific Bulger (1.001-1.035) Urine Protein (NEGATIVE) mg/dL Urine Glucose (UA) (NEGATIVE) mg/dL Urine Ketones (NEGATIVE) mg/dL Urine Occult Blood (NEGATIVE) Urine Nitrite (NEGATIVE) Urine Bilirubin (NEGATIVE) Urine Urobilinogen (<2.0) EU/dL Ur Leukocyte Esterase (NEGATIVE) Urine RBC (0-2/HPF) Urine WBC (0-5/HPF) Ur Epithelial Cells (NONE-FEW) Urine Bacteria (NEGATIVE) Ketones (NEG) SARS-CoV-2 RNA (ABBIE) (NEGATIVE) Blood Type Antibody Screen 06/09/20 06/09/20 06/09/20 Range/Units 18:17 18:17 19:56 WBC (4.0-11.0) K/uL RBC (4.50-5.90) M/uL Hgb (13.0-17.0) g/dL Hct (38.0-50.0) % MCV (80.0-98.0) fL MCH (27.0-32.0) pg MCHC (31.0-37.0) g/dL RDW Std Deviation (28.0-62.0) fl RDW Coeff of Charles (11.0-15.0) % Plt Count (150-400) K/uL MPV (7.40-12.00) fL Add Manual Diff Neutrophils % (Manual) (48.0-80.0) % Lymphocytes % (Manual) (16.0-40.0) % Monocytes % (Manual) (0.0-15.0) % Nucleated RBC % /100WBC Absolute Seg Neuts (1.4-5.7) Lymphocytes # (Manual) (0.6-2.4) Monocytes # (Manual) (0.0-0.8) Nucleated RBCs # K/uL INR APTT (18.6-31.3) SEC ABG pH (7.35-7.45) ABG pCO2 (35-45) mmHG ABG pO2 (75-100) mmHG ABG HCO3 (22-26) mEq/L ABG Total CO2 ABG Base Excess (-2.0-2.0) Lactate (0.20-2.00) mmol/L Sodium (136-148) mmol/L Potassium (3.5-5.1) mmol/L Chloride (98-107) mmol/L Carbon Dioxide (21.0-32.0) mmol/L BUN (7.0-18.0) mg/dL Creatinine (0.8-1.3) mg/dL Est Cr Clr Drug Dosing Estimated GFR (MDRD) ml/min Glucose (74-106) mg/dL POC Glucose 405 H (60-110) mg/dL Calcium (8.5-10.1) mg/dL Total Bilirubin (0.2-1.0) mg/dL AST (15-37) IU/L ALT (14-63) IU/L Alkaline Phosphatase (46-116) U/L Troponin I (0.000-0.056) ng/mL Total Protein (6.4-8.2) g/dL Albumin (3.4-5.0) g/dL Globulin (2.6-4.0) g/dL Albumin/Globulin Ratio (0.9-1.6) Lipase (73-393) U/L Urine Color Urine Appearance Urine pH (5.0-8.0) Ur Specific Bulger (1.001-1.035) Urine Protein (NEGATIVE) mg/dL Urine Glucose (UA) (NEGATIVE) mg/dL Urine Ketones (NEGATIVE) mg/dL Urine Occult Blood (NEGATIVE) Urine Nitrite (NEGATIVE) Urine Bilirubin (NEGATIVE) Urine Urobilinogen (<2.0) EU/dL Ur Leukocyte Esterase (NEGATIVE) Urine RBC (0-2/HPF) Urine WBC (0-5/HPF) Ur Epithelial Cells (NONE-FEW) Urine Bacteria (NEGATIVE) Ketones MODERATE H (NEG) SARS-CoV-2 RNA (ABBIE) (NEGATIVE) Blood Type B NEGATIVE Antibody Screen NEGATIVE 06/09/20 Range/Units 21:07 WBC (4.0-11.0) K/uL RBC (4.50-5.90) M/uL Hgb (13.0-17.0) g/dL Hct (38.0-50.0) % MCV (80.0-98.0) fL MCH (27.0-32.0) pg MCHC (31.0-37.0) g/dL RDW Std Deviation (28.0-62.0) fl RDW Coeff of Charles (11.0-15.0) % Plt Count (150-400) K/uL MPV (7.40-12.00) fL Add Manual Diff Neutrophils % (Manual) (48.0-80.0) % Lymphocytes % (Manual) (16.0-40.0) % Monocytes % (Manual) (0.0-15.0) % Nucleated RBC % /100WBC Absolute Seg Neuts (1.4-5.7) Lymphocytes # (Manual) (0.6-2.4) Monocytes # (Manual) (0.0-0.8) Nucleated RBCs # K/uL INR APTT (18.6-31.3) SEC ABG pH (7.35-7.45) ABG pCO2 (35-45) mmHG ABG pO2 (75-100) mmHG ABG HCO3 (22-26) mEq/L ABG Total CO2 ABG Base Excess (-2.0-2.0) Lactate (0.20-2.00) mmol/L Sodium (136-148) mmol/L Potassium (3.5-5.1) mmol/L Chloride (98-107) mmol/L Carbon Dioxide (21.0-32.0) mmol/L BUN (7.0-18.0) mg/dL Creatinine (0.8-1.3) mg/dL Est Cr Clr Drug Dosing Estimated GFR (MDRD) ml/min Glucose (74-106) mg/dL POC Glucose 333 H (60-110) mg/dL Calcium (8.5-10.1) mg/dL Total Bilirubin (0.2-1.0) mg/dL AST (15-37) IU/L ALT (14-63) IU/L Alkaline Phosphatase (46-116) U/L Troponin I (0.000-0.056) ng/mL Total Protein (6.4-8.2) g/dL Albumin (3.4-5.0) g/dL Globulin (2.6-4.0) g/dL Albumin/Globulin Ratio (0.9-1.6) Lipase (73-393) U/L Urine Color Urine Appearance Urine pH (5.0-8.0) Ur Specific Bulger (1.001-1.035) Urine Protein (NEGATIVE) mg/dL Urine Glucose (UA) (NEGATIVE) mg/dL Urine Ketones (NEGATIVE) mg/dL Urine Occult Blood (NEGATIVE) Urine Nitrite (NEGATIVE) Urine Bilirubin (NEGATIVE) Urine Urobilinogen (<2.0) EU/dL Ur Leukocyte Esterase (NEGATIVE) Urine RBC (0-2/HPF) Urine WBC (0-5/HPF) Ur Epithelial Cells (NONE-FEW) Urine Bacteria (NEGATIVE) Ketones (NEG) SARS-CoV-2 RNA (ABBIE) (NEGATIVE) Blood Type Antibody Screen Result Diagrams: 06/09/20 18:17 06/09/20 18:17 Sepsis Event Note - Evaluation Sepsis Screening Result: No Definite Risk - Focused Exam Vital Signs: Vital Signs Temp Pulse Resp BP Pulse Ox 06/09/20 18:45 124 H 18 155/107 H 99 06/09/20 18:15 126 H 20 129/74 99 06/09/20 17:15 134 H 20 174/94 H 99 06/09/20 15:36 36.3 C 124 H 18 158/100 H 99 Problem List Initiated/Reviewed/Updated: Yes Orders Last 24hrs: Active Orders 24 hr Category Date Time Status Admission Status [Patient Status] [ADT] Stat ADT 06/09/20 19:12 Active Accu Check [Blood Glucose Check, Bedside] [RC] Q1H Care 06/09/20 20:00 Active Cardiac Monitoring [RC] . DIRECTED Care 06/09/20 19:12 Active EKG Documentation Completion [RC] AM Care 06/09/20 15:42 Active NPO [Nothing Per Oral Diet] [DIET] Diet 06/09/20 Dinner Active BMP [BASIC METABOLIC PANEL,BMP] [CHEM] Q4H Lab 06/09/20 22:00 Ordered BMP [BASIC METABOLIC PANEL,BMP] [CHEM] Q4H Lab 06/10/20 02:00 Ordered BMP [BASIC METABOLIC PANEL,BMP] [CHEM] Q4H Lab 06/10/20 06:00 Ordered LACTIC ACID,WHOLE BLOOD [BG] Q6H Lab 06/09/20 22:00 Ordered LACTIC ACID,WHOLE BLOOD [BG] Q6H Lab 06/10/20 04:00 Ordered Dextrose 50% in Water Med 06/09/20 17:08 Active 50 ml IV ASDIRECTED PRN Glucagon,Human Recombinant [GlucaGen] Med 06/09/20 17:08 Active 1 mg IM ASDIRECTED PRN Insulin Regular in 0.9 % NACL [Myxredlin in NS 100 UNIT Med 06/09/20 20:40 Active /100 ML] 100 ml IV TITRATE Lactated Ringers [Ringers, Lactated] 1,000 ml Med 06/09/20 21:00 Active IV ASDIRECTED Ondansetron [Zofran] Med 06/09/20 20:06 Active 4 mg IVPUSH Q4H PRN Pantoprazole [ProTONIX IV] 40 mg Med 06/10/20 04:00 Active Sodium Chloride 0.9% [Normal Saline] 10 ml IV Q12H Sodium Chloride 0.9% [Normal Saline] 1,000 ml Med 06/09/20 17:15 Active IV ASDIRECTED Sodium Chloride 0.9% [Saline Flush] Med 06/09/20 15:42 Active 10 ml FLUSH ASDIRECTED PRN Sodium Chloride 0.9% [Saline Flush] Med 06/09/20 15:42 Active 2.5 ml FLUSH ASDIRECTED PRN Saline Lock Insert [OM.PC] Stat Oth 06/09/20 15:42 Ordered Medication Orders Dextrose/Water (50% Dextrose In Water 50 Ml Syringe) 50 ml IV ASDIRECTED PRN PRN Reason: Hypoglycemia Glucagon (Glucagon,Human Recombinant 1 Mg Vial) 1 mg IM ASDIRECTED PRN PRN Reason: Hypoglycemia Sodium Chloride (Normal Saline) 1,000 mls @ 999 mls/hr IV ASDIRECTED ESTEPHANIA Last Admin: 06/09/20 17:12 Dose: 999 mls/hr Documented by: ALBERTO Pantoprazole Sodium 40 mg/ (Sodium Chloride) 10 mls @ 300 mls/hr IV Q12H ESTEPHANIA Lactated Ringer's (Ringers, Lactated) 1,000 mls @ 200 mls/hr IV ASDIRECTED ESTEPHANIA Insulin Regular in 0.9 % NACL (Myxredlin In Ns 100 Unit/100 Ml) 100 mls @ 7 mls/hr IV TITRATE ESTEPHANIA; Protocol Last Titration: 06/09/20 21:07 Dose: 4 unit/hr, 4 mls/hr Documented by: LUIS MIGUEL Cosigned by: ANA M Admin: 06/09/20 20:41 Dose: 7 unit/hr, 7 mls/hr Documented by: LUIS MIGUEL Cosigned by: ANA M Ondansetron HCl (Ondansetron 4 Mg/2 Ml Sdv) 4 mg IVPUSH Q4H PRN PRN Reason: Nausea/Vomiting Last Admin: 06/09/20 20:13 Dose: 4 mg Documented by: LUIS MIGUEL Sodium Chloride (Sodium Chloride 0.9% 10 Ml Syringe) 10 ml FLUSH ASDIRECTED PRN PRN Reason: Keep Vein Open Last Admin: 06/09/20 20:13 Dose: 10 ml Documented by: LUIS MIGUEL Sodium Chloride (Sodium Chloride 0.9% 2.5 Ml Syringe) 2.5 ml FLUSH ASDIRECTED PRN PRN Reason: Keep Vein Open Assessment/Plan Comment:: 54 yo male admitted for diabetic ketoacidosis. We will hydrate with IV fluids and treat with insulin drip. We will trend BMPs to monitor for anion gap closer. Patient reports some coffee ground emesis but don't think patient is having large bleed. Will hold plavix for now. Patient reports he is not on anticoagulation.
[2020-06-09 22:32] LABS: BLOOD UREA NITROGEN,BUN 19 mg/dL (7.0-18.0); CARBON DIOXIDE,CO2 7.3 mmol/L (21.0-32.0); CHLORIDE,CL 107 mmol/L (98-107); GLUCOSE RANDOM 351 mg/dL (74-106); POTASSIUM,K 4.6 mmol/L (3.5-5.1); SODIUM,NA 142 mmol/L (136-148)
[2020-06-09] MEDS: Metoclopramide 10 MG/2 ML SDV IVPUSH PRN (22:40)
--- NOTE | 2020-06-09 23:54 | CT ---
INDICATION: Nausea, vomiting and leukocytosis. TECHNIQUE: Axial images were obtained from the diaphragm to the pubic symphysis. Reformats were obtained in the coronal and sagittal plane. IV Contrast: None Oral Contrast: None COMPARISON: Abdomen and pelvis CT 11/30/2019 FINDINGS: Lower chest: Pacemaker leads partially included on the examination. Liver: Normal in contour with focal fat adjacent to the gallbladder fossa and falciform ligament. Gallbladder and bile ducts: Status post cholecystectomy. Spleen: Unremarkable. Normal in size without mass. Pancreas: Unremarkable. No mass or inflammation. Adrenal glands: Unremarkable. No nodules. Kidneys: Nephrolithiasis without evidence of ureteral stone or hydronephrosis. Right renal cyst measuring 14 millimeters. Vasculature: Unremarkable. GI tract: The stomach is decompressed. No dilated loops of large or small intestines. Appendix unremarkable. Pelvis: Mild to moderate bladder distention. Fat containing right indirect inguinal hernia. Bones: Unremarkable for age. IMPRESSION: 1. Nephrolithiasis without evidence of ureteral stone or hydronephrosis. 2. No dilated bowel or localized inflammation. Please note that all CT scans at this facility use dose modulation, iterative reconstruction, and/or weight-based dosing when appropriate to reduce radiation dose to as low as reasonably achievable. Dictated by Cody Hill MD @ Jun 09 2020 11:40PM Signed by Dr. Cody Hill @ Jun 09 2020 11:52PM
[2020-06-10] MEDS: Dextrose 5%-0.45% NaCl 1,000 ML IV SCH ×4 (00:10→21:01)
[2020-06-10] MEDS: Ondansetron 4 MG/2 ML SDV IVPUSH PRN ×3 (01:15→21:01)
[2020-06-10 02:25] LABS: BLOOD UREA NITROGEN,BUN 17 mg/dL (7.0-18.0); CARBON DIOXIDE,CO2 12.6 mmol/L (21.0-32.0); CHLORIDE,CL 109 mmol/L (98-107); GLUCOSE RANDOM 242 mg/dL (74-106); POTASSIUM,K 4.5 mmol/L (3.5-5.1); SODIUM,NA 143 mmol/L (136-148)
[2020-06-10] MEDS: Pantoprazole 40 MG in Sodium Chloride 0.9% 10 ML IV SCH ×2 (04:30→16:07)
[2020-06-10] MEDS: Metoclopramide 10 MG/2 ML SDV IVPUSH PRN ×2 (05:31→18:48)
[2020-06-10 06:52] LABS: BLOOD UREA NITROGEN,BUN 15 mg/dL (7.0-18.0); CARBON DIOXIDE,CO2 14.8 mmol/L (21.0-32.0); CHLORIDE,CL 110 mmol/L (98-107); GLUCOSE RANDOM 258 mg/dL (74-106); POTASSIUM,K 4.1 mmol/L (3.5-5.1); SODIUM,NA 143 mmol/L (136-148)
[2020-06-10 10:29] LABS: BLOOD UREA NITROGEN,BUN 13 mg/dL (7.0-18.0); CARBON DIOXIDE,CO2 16.3 mmol/L (21.0-32.0); CHLORIDE,CL 108 mmol/L (98-107); GLUCOSE RANDOM 251 mg/dL (74-106); POTASSIUM,K 3.9 mmol/L (3.5-5.1); SODIUM,NA 142 mmol/L (136-148)
--- NOTE | 2020-06-10 11:38 | PCM.PN ---
- General Info Date of Service: 06/10/20 - Review of Systems Systems Review Comment:: feeling better, still weak, no apatite - Patient Data Vitals - Most Recent: Last Vital Signs Temp 36.9 C 06/10/20 08:00 Pulse 124 H 06/09/20 18:45 Resp 16 06/10/20 10:00 BP 141/84 H 06/10/20 10:00 Pulse Ox 95 06/10/20 10:00 Weight - Most Recent: 69.445 kg I&O - Last 24 Hours: Intake & Output 06/09/20 06/10/20 06/10/20 22:59 06:59 14:59 Intake Total 3625 Output Total 1410 Balance 2215 Lab Results Last 24 Hours: Laboratory Results - last 24 hr 06/09/20 06/09/20 06/09/20 Range/Units 15:54 16:28 17:09 WBC (4.0-11.0) K/uL RBC (4.50-5.90) M/uL Hgb (13.0-17.0) g/dL Hct (38.0-50.0) % MCV (80.0-98.0) fL MCH (27.0-32.0) pg MCHC (31.0-37.0) g/dL RDW Std Deviation (28.0-62.0) fl RDW Coeff of Charles (11.0-15.0) % Plt Count (150-400) K/uL MPV (7.40-12.00) fL Neut % (Auto) (48.0-80.0) % Lymph % (Auto) (16.0-40.0) % [place] % (Auto) (0.0-15.0) % Eos % (Auto) (0.0-7.0) % Baso % (Auto) (0.0-1.5) % Neut # (Auto) (1.4-5.7) K/uL Lymph # (Auto) (0.6-2.4) K/uL [place] # (Auto) (0.0-0.8) K/uL Eos # (Auto) (0.0-0.7) K/uL Baso # (Auto) (0.0-0.1) K/uL Add Manual Diff Neutrophils % (Manual) (48.0-80.0) % Lymphocytes % (Manual) (16.0-40.0) % Monocytes % (Manual) (0.0-15.0) % Nucleated RBC % /100WBC Absolute Seg Neuts (1.4-5.7) Lymphocytes # (Manual) (0.6-2.4) Monocytes # (Manual) (0.0-0.8) Nucleated RBCs # K/uL INR APTT (18.6-31.3) SEC ABG pH 7.059 L* (7.35-7.45) ABG pCO2 14 L (35-45) mmHG ABG pO2 109 H (75-100) mmHG ABG HCO3 4 L (22-26) mEq/L ABG Total CO2 3.6 ABG Base Excess -24.4 L (-2.0-2.0) Lactate (0.20-2.00) mmol/L Sodium (136-148) mmol/L Potassium (3.5-5.1) mmol/L Chloride (98-107) mmol/L Carbon Dioxide (21.0-32.0) mmol/L BUN (7.0-18.0) mg/dL Creatinine (0.8-1.3) mg/dL Est Cr Clr Drug Dosing Estimated GFR (MDRD) ml/min Glucose (74-106) mg/dL POC Glucose > 500 H (60-110) mg/dL Calcium (8.5-10.1) mg/dL Total Bilirubin (0.2-1.0) mg/dL AST (15-37) IU/L ALT (14-63) IU/L Alkaline Phosphatase (46-116) U/L Troponin I (0.000-0.056) ng/mL Total Protein (6.4-8.2) g/dL Albumin (3.4-5.0) g/dL Globulin (2.6-4.0) g/dL Albumin/Globulin Ratio (0.9-1.6) Lipase (73-393) U/L Urine Color YELLOW Urine Appearance HAZY Urine pH 5.5 (5.0-8.0) Ur Specific [place] 1.025 (1.001-1.035) Urine Protein TRACE H (NEGATIVE) mg/dL Urine Glucose (UA) 250 H (NEGATIVE) mg/dL Urine Ketones >=80 (NEGATIVE) mg/dL Urine Occult Blood TRACE-INTACT H (NEGATIVE) Urine Nitrite NEGATIVE (NEGATIVE) Urine Bilirubin NEGATIVE (NEGATIVE) Urine Urobilinogen 0.2 (<2.0) EU/dL Ur Leukocyte Esterase NEGATIVE (NEGATIVE) Urine RBC 0-1 (0-2/HPF) Urine WBC 0-1 (0-5/HPF) Ur Epithelial Cells RARE (NONE-FEW) Urine Bacteria RARE (NEGATIVE) Ketones (NEG) SARS-CoV-2 RNA (ABBIE) (NEGATIVE) Blood Type Antibody Screen 06/09/20 06/09/20 06/09/20 Range/Units 17:17 17:20 18:17 WBC 19.77 H (4.0-11.0) K/uL RBC 4.86 (4.50-5.90) M/uL Hgb 15.4 (13.0-17.0) g/dL Hct 44.3 (38.0-50.0) % MCV 91.2 (80.0-98.0) fL MCH 31.7 (27.0-32.0) pg MCHC 34.8 (31.0-37.0) g/dL RDW Std Deviation 43.1 (28.0-62.0) fl RDW Coeff of Charles 13 (11.0-15.0) % Plt Count 268 (150-400) K/uL MPV 10.30 (7.40-12.00) fL Neut % (Auto) (48.0-80.0) % Lymph % (Auto) (16.0-40.0) % [place] % (Auto) (0.0-15.0) % Eos % (Auto) (0.0-7.0) % Baso % (Auto) (0.0-1.5) % Neut # (Auto) (1.4-5.7) K/uL Lymph # (Auto) (0.6-2.4) K/uL [place] # (Auto) (0.0-0.8) K/uL Eos # (Auto) (0.0-0.7) K/uL Baso # (Auto) (0.0-0.1) K/uL Add Manual Diff YES Neutrophils % (Manual) 94 H (48.0-80.0) % Lymphocytes % (Manual) 4 L (16.0-40.0) % Monocytes % (Manual) 2 (0.0-15.0) % Nucleated RBC % 0.0 /100WBC Absolute Seg Neuts 18.6 H (1.4-5.7) Lymphocytes # (Manual) 0.8 (0.6-2.4) Monocytes # (Manual) 0.4 (0.0-0.8) Nucleated RBCs # 0 K/uL INR APTT (18.6-31.3) SEC ABG pH (7.35-7.45) ABG pCO2 (35-45) mmHG ABG pO2 (75-100) mmHG ABG HCO3 (22-26) mEq/L ABG Total CO2 ABG Base Excess (-2.0-2.0) Lactate 3.2 H* (0.20-2.00) mmol/L Sodium (136-148) mmol/L Potassium (3.5-5.1) mmol/L Chloride (98-107) mmol/L Carbon Dioxide (21.0-32.0) mmol/L BUN (7.0-18.0) mg/dL Creatinine (0.8-1.3) mg/dL Est Cr Clr Drug Dosing Estimated GFR (MDRD) ml/min Glucose (74-106) mg/dL POC Glucose (60-110) mg/dL Calcium (8.5-10.1) mg/dL Total Bilirubin (0.2-1.0) mg/dL AST (15-37) IU/L ALT (14-63) IU/L Alkaline Phosphatase (46-116) U/L Troponin I (0.000-0.056) ng/mL Total Protein (6.4-8.2) g/dL Albumin (3.4-5.0) g/dL Globulin (2.6-4.0) g/dL Albumin/Globulin Ratio (0.9-1.6) Lipase (73-393) U/L Urine Color Urine Appearance Urine pH (5.0-8.0) Ur Specific [place] (1.001-1.035) Urine Protein (NEGATIVE) mg/dL Urine Glucose (UA) (NEGATIVE) mg/dL Urine Ketones (NEGATIVE) mg/dL Urine Occult Blood (NEGATIVE) Urine Nitrite (NEGATIVE) Urine Bilirubin (NEGATIVE) Urine Urobilinogen (<2.0) EU/dL Ur Leukocyte Esterase (NEGATIVE) Urine RBC (0-2/HPF) Urine WBC (0-5/HPF) Ur Epithelial Cells (NONE-FEW) Urine Bacteria (NEGATIVE) Ketones (NEG) SARS-CoV-2 RNA (ABBIE) NEGATIVE (NEGATIVE) Blood Type Antibody Screen 06/09/20 06/09/20 06/09/20 Range/Units 18:17 18:17 18:17 WBC (4.0-11.0) K/uL RBC (4.50-5.90) M/uL Hgb (13.0-17.0) g/dL Hct (38.0-50.0) % MCV (80.0-98.0) fL MCH (27.0-32.0) pg MCHC (31.0-37.0) g/dL RDW Std Deviation (28.0-62.0) fl RDW Coeff of Charles (11.0-15.0) % Plt Count (150-400) K/uL MPV (7.40-12.00) fL Neut % (Auto) (48.0-80.0) % Lymph % (Auto) (16.0-40.0) % [place] % (Auto) (0.0-15.0) % Eos % (Auto) (0.0-7.0) % Baso % (Auto) (0.0-1.5) % Neut # (Auto) (1.4-5.7) K/uL Lymph # (Auto) (0.6-2.4) K/uL [place] # (Auto) (0.0-0.8) K/uL Eos # (Auto) (0.0-0.7) K/uL Baso # (Auto) (0.0-0.1) K/uL Add Manual Diff Neutrophils % (Manual) (48.0-80.0) % Lymphocytes % (Manual) (16.0-40.0) % Monocytes % (Manual) (0.0-15.0) % Nucleated RBC % /100WBC Absolute Seg Neuts (1.4-5.7) Lymphocytes # (Manual) (0.6-2.4) Monocytes # (Manual) (0.0-0.8) Nucleated RBCs # K/uL INR 1.11 APTT 19.5 (18.6-31.3) SEC ABG pH (7.35-7.45) ABG pCO2 (35-45) mmHG ABG pO2 (75-100) mmHG ABG HCO3 (22-26) mEq/L ABG Total CO2 ABG Base Excess (-2.0-2.0) Lactate (0.20-2.00) mmol/L Sodium 141 (136-148) mmol/L Potassium 4.2 (3.5-5.1) mmol/L Chloride 105 (98-107) mmol/L Carbon Dioxide 7.0 L (21.0-32.0) mmol/L BUN 22 H (7.0-18.0) mg/dL Creatinine 1.5 H (0.8-1.3) mg/dL Est Cr Clr Drug Dosing TNP Estimated GFR (MDRD) 48.6 ml/min Glucose 383 H (74-106) mg/dL POC Glucose (60-110) mg/dL Calcium 7.8 L (8.5-10.1) mg/dL Total Bilirubin 1.2 H (0.2-1.0) mg/dL AST 15 (15-37) IU/L ALT 24 (14-63) IU/L Alkaline Phosphatase 133 H (46-116) U/L Troponin I < 0.050 (0.000-0.056) ng/mL Total Protein 6.9 (6.4-8.2) g/dL Albumin 4.3 (3.4-5.0) g/dL Globulin 2.6 (2.6-4.0) g/dL Albumin/Globulin Ratio 1.7 H (0.9-1.6) Lipase 43 L (73-393) U/L Urine Color Urine Appearance Urine pH (5.0-8.0) Ur Specific [place] (1.001-1.035) Urine Protein (NEGATIVE) mg/dL Urine Glucose (UA) (NEGATIVE) mg/dL Urine Ketones (NEGATIVE) mg/dL Urine Occult Blood (NEGATIVE) Urine Nitrite (NEGATIVE) Urine Bilirubin (NEGATIVE) Urine Urobilinogen (<2.0) EU/dL Ur Leukocyte Esterase (NEGATIVE) Urine RBC (0-2/HPF) Urine WBC (0-5/HPF) Ur Epithelial Cells (NONE-FEW) Urine Bacteria (NEGATIVE) Ketones (NEG) SARS-CoV-2 RNA (ABBIE) (NEGATIVE) Blood Type Antibody Screen 06/09/20 06/09/20 06/09/20 Range/Units 18:17 18:17 18:24 WBC (4.0-11.0) K/uL RBC (4.50-5.90) M/uL Hgb (13.0-17.0) g/dL Hct (38.0-50.0) % MCV (80.0-98.0) fL MCH (27.0-32.0) pg MCHC (31.0-37.0) g/dL RDW Std Deviation (28.0-62.0) fl RDW Coeff of Charles (11.0-15.0) % Plt Count (150-400) K/uL MPV (7.40-12.00) fL Neut % (Auto) (48.0-80.0) % Lymph % (Auto) (16.0-40.0) % [place] % (Auto) (0.0-15.0) % Eos % (Auto) (0.0-7.0) % Baso % (Auto) (0.0-1.5) % Neut # (Auto) (1.4-5.7) K/uL Lymph # (Auto) (0.6-2.4) K/uL [place] # (Auto) (0.0-0.8) K/uL Eos # (Auto) (0.0-0.7) K/uL Baso # (Auto) (0.0-0.1) K/uL Add Manual Diff Neutrophils % (Manual) (48.0-80.0) % Lymphocytes % (Manual) (16.0-40.0) % Monocytes % (Manual) (0.0-15.0) % Nucleated RBC % /100WBC Absolute Seg Neuts (1.4-5.7) Lymphocytes # (Manual) (0.6-2.4) Monocytes # (Manual) (0.0-0.8) Nucleated RBCs # K/uL INR APTT (18.6-31.3) SEC ABG pH (7.35-7.45) ABG pCO2 (35-45) mmHG ABG pO2 (75-100) mmHG ABG HCO3 (22-26) mEq/L ABG Total CO2 ABG Base Excess (-2.0-2.0) Lactate (0.20-2.00) mmol/L Sodium (136-148) mmol/L Potassium (3.5-5.1) mmol/L Chloride (98-107) mmol/L Carbon Dioxide (21.0-32.0) mmol/L BUN (7.0-18.0) mg/dL Creatinine (0.8-1.3) mg/dL Est Cr Clr Drug Dosing Estimated GFR (MDRD) ml/min Glucose (74-106) mg/dL POC Glucose 379 H (60-110) mg/dL Calcium (8.5-10.1) mg/dL Total Bilirubin (0.2-1.0) mg/dL AST (15-37) IU/L ALT (14-63) IU/L Alkaline Phosphatase (46-116) U/L Troponin I (0.000-0.056) ng/mL Total Protein (6.4-8.2) g/dL Albumin (3.4-5.0) g/dL Globulin (2.6-4.0) g/dL Albumin/Globulin Ratio (0.9-1.6) Lipase (73-393) U/L Urine Color Urine Appearance Urine pH (5.0-8.0) Ur Specific [place] (1.001-1.035) Urine Protein (NEGATIVE) mg/dL Urine Glucose (UA) (NEGATIVE) mg/dL Urine Ketones (NEGATIVE) mg/dL Urine Occult Blood (NEGATIVE) Urine Nitrite (NEGATIVE) Urine Bilirubin (NEGATIVE) Urine Urobilinogen (<2.0) EU/dL Ur Leukocyte Esterase (NEGATIVE) Urine RBC (0-2/HPF) Urine WBC (0-5/HPF) Ur Epithelial Cells (NONE-FEW) Urine Bacteria (NEGATIVE) Ketones MODERATE H (NEG) SARS-CoV-2 RNA (ABBIE) (NEGATIVE) Blood Type B NEGATIVE Antibody Screen NEGATIVE 06/09/20 06/09/20 06/09/20 Range/Units 19:56 21:07 22:04 WBC (4.0-11.0) K/uL RBC (4.50-5.90) M/uL Hgb (13.0-17.0) g/dL Hct (38.0-50.0) % MCV (80.0-98.0) fL MCH (27.0-32.0) pg MCHC (31.0-37.0) g/dL RDW Std Deviation (28.0-62.0) fl RDW Coeff of Charles (11.0-15.0) % Plt Count (150-400) K/uL MPV (7.40-12.00) fL Neut % (Auto) (48.0-80.0) % Lymph % (Auto) (16.0-40.0) % [place] % (Auto) (0.0-15.0) % Eos % (Auto) (0.0-7.0) % Baso % (Auto) (0.0-1.5) % Neut # (Auto) (1.4-5.7) K/uL Lymph # (Auto) (0.6-2.4) K/uL [place] # (Auto) (0.0-0.8) K/uL Eos # (Auto) (0.0-0.7) K/uL Baso # (Auto) (0.0-0.1) K/uL Add Manual Diff Neutrophils % (Manual) (48.0-80.0) % Lymphocytes % (Manual) (16.0-40.0) % Monocytes % (Manual) (0.0-15.0) % Nucleated RBC % /100WBC Absolute Seg Neuts (1.4-5.7) Lymphocytes # (Manual) (0.6-2.4) Monocytes # (Manual) (0.0-0.8) Nucleated RBCs # K/uL INR APTT (18.6-31.3) SEC ABG pH (7.35-7.45) ABG pCO2 (35-45) mmHG ABG pO2 (75-100) mmHG ABG HCO3 (22-26) mEq/L ABG Total CO2 ABG Base Excess (-2.0-2.0) Lactate (0.20-2.00) mmol/L Sodium (136-148) mmol/L Potassium (3.5-5.1) mmol/L Chloride (98-107) mmol/L Carbon Dioxide (21.0-32.0) mmol/L BUN (7.0-18.0) mg/dL Creatinine (0.8-1.3) mg/dL Est Cr Clr Drug Dosing Estimated GFR (MDRD) ml/min Glucose (74-106) mg/dL POC Glucose 405 H 333 H 322 H (60-110) mg/dL Calcium (8.5-10.1) mg/dL Total Bilirubin (0.2-1.0) mg/dL AST (15-37) IU/L ALT (14-63) IU/L Alkaline Phosphatase (46-116) U/L Troponin I (0.000-0.056) ng/mL Total Protein (6.4-8.2) g/dL Albumin (3.4-5.0) g/dL Globulin (2.6-4.0) g/dL Albumin/Globulin Ratio (0.9-1.6) Lipase (73-393) U/L Urine Color Urine Appearance Urine pH (5.0-8.0) Ur Specific [place] (1.001-1.035) Urine Protein (NEGATIVE) mg/dL Urine Glucose (UA) (NEGATIVE) mg/dL Urine Ketones (NEGATIVE) mg/dL Urine Occult Blood (NEGATIVE) Urine Nitrite (NEGATIVE) Urine Bilirubin (NEGATIVE) Urine Urobilinogen (<2.0) EU/dL Ur Leukocyte Esterase (NEGATIVE) Urine RBC (0-2/HPF) Urine WBC (0-5/HPF) Ur Epithelial Cells (NONE-FEW) Urine Bacteria (NEGATIVE) Ketones (NEG) SARS-CoV-2 RNA (ABBIE) (NEGATIVE) Blood Type Antibody Screen 06/09/20 06/09/20 06/09/20 Range/Units 22:05 22:05 23:05 WBC (4.0-11.0) K/uL RBC (4.50-5.90) M/uL Hgb (13.0-17.0) g/dL Hct (38.0-50.0) % MCV (80.0-98.0) fL MCH (27.0-32.0) pg MCHC (31.0-37.0) g/dL RDW Std Deviation (28.0-62.0) fl RDW Coeff of Charles (11.0-15.0) % Plt Count (150-400) K/uL MPV (7.40-12.00) fL Neut % (Auto) (48.0-80.0) % Lymph % (Auto) (16.0-40.0) % [place] % (Auto) (0.0-15.0) % Eos % (Auto) (0.0-7.0) % Baso % (Auto) (0.0-1.5) % Neut # (Auto) (1.4-5.7) K/uL Lymph # (Auto) (0.6-2.4) K/uL [place] # (Auto) (0.0-0.8) K/uL Eos # (Auto) (0.0-0.7) K/uL Baso # (Auto) (0.0-0.1) K/uL Add Manual Diff Neutrophils % (Manual) (48.0-80.0) % Lymphocytes % (Manual) (16.0-40.0) % Monocytes % (Manual) (0.0-15.0) % Nucleated RBC % /100WBC Absolute Seg Neuts (1.4-5.7) Lymphocytes # (Manual) (0.6-2.4) Monocytes # (Manual) (0.0-0.8) Nucleated RBCs # K/uL INR APTT (18.6-31.3) SEC ABG pH (7.35-7.45) ABG pCO2 (35-45) mmHG ABG pO2 (75-100) mmHG ABG HCO3 (22-26) mEq/L ABG Total CO2 ABG Base Excess (-2.0-2.0) Lactate 1.8 (0.20-2.00) mmol/L Sodium 142 (136-148) mmol/L Potassium 4.6 (3.5-5.1) mmol/L Chloride 107 (98-107) mmol/L Carbon Dioxide 7.3 L (21.0-32.0) mmol/L BUN 19 H (7.0-18.0) mg/dL Creatinine 1.7 H (0.8-1.3) mg/dL Est Cr Clr Drug Dosing TNP Estimated GFR (MDRD) 42.1 ml/min Glucose 351 H (74-106) mg/dL POC Glucose 306 H (60-110) mg/dL Calcium 8.3 L (8.5-10.1) mg/dL Total Bilirubin (0.2-1.0) mg/dL AST (15-37) IU/L ALT (14-63) IU/L Alkaline Phosphatase (46-116) U/L Troponin I (0.000-0.056) ng/mL Total Protein (6.4-8.2) g/dL Albumin (3.4-5.0) g/dL Globulin (2.6-4.0) g/dL Albumin/Globulin Ratio (0.9-1.6) Lipase (73-393) U/L Urine Color Urine Appearance Urine pH (5.0-8.0) Ur Specific [place] (1.001-1.035) Urine Protein (NEGATIVE) mg/dL Urine Glucose (UA) (NEGATIVE) mg/dL Urine Ketones (NEGATIVE) mg/dL Urine Occult Blood (NEGATIVE) Urine Nitrite (NEGATIVE) Urine Bilirubin (NEGATIVE) Urine Urobilinogen (<2.0) EU/dL Ur Leukocyte Esterase (NEGATIVE) Urine RBC (0-2/HPF) Urine WBC (0-5/HPF) Ur Epithelial Cells (NONE-FEW) Urine Bacteria (NEGATIVE) Ketones (NEG) SARS-CoV-2 RNA (ABBIE) (NEGATIVE) Blood Type Antibody Screen 06/10/20 06/10/20 06/10/20 Range/Units 00:00 01:01 02:03 WBC (4.0-11.0) K/uL RBC (4.50-5.90) M/uL Hgb (13.0-17.0) g/dL Hct (38.0-50.0) % MCV (80.0-98.0) fL MCH (27.0-32.0) pg MCHC (31.0-37.0) g/dL RDW Std Deviation (28.0-62.0) fl RDW Coeff of Charles (11.0-15.0) % Plt Count (150-400) K/uL MPV (7.40-12.00) fL Neut % (Auto) (48.0-80.0) % Lymph % (Auto) (16.0-40.0) % [place] % (Auto) (0.0-15.0) % Eos % (Auto) (0.0-7.0) % Baso % (Auto) (0.0-1.5) % Neut # (Auto) (1.4-5.7) K/uL Lymph # (Auto) (0.6-2.4) K/uL [place] # (Auto) (0.0-0.8) K/uL Eos # (Auto) (0.0-0.7) K/uL Baso # (Auto) (0.0-0.1) K/uL Add Manual Diff Neutrophils % (Manual) (48.0-80.0) % Lymphocytes % (Manual) (16.0-40.0) % Monocytes % (Manual) (0.0-15.0) % Nucleated RBC % /100WBC Absolute Seg Neuts (1.4-5.7) Lymphocytes # (Manual) (0.6-2.4) Monocytes # (Manual) (0.0-0.8) Nucleated RBCs # K/uL INR APTT (18.6-31.3) SEC ABG pH (7.35-7.45) ABG pCO2 (35-45) mmHG ABG pO2 (75-100) mmHG ABG HCO3 (22-26) mEq/L ABG Total CO2 ABG Base Excess (-2.0-2.0) Lactate (0.20-2.00) mmol/L Sodium (136-148) mmol/L Potassium (3.5-5.1) mmol/L Chloride (98-107) mmol/L Carbon Dioxide (21.0-32.0) mmol/L BUN (7.0-18.0) mg/dL Creatinine (0.8-1.3) mg/dL Est Cr Clr Drug Dosing Estimated GFR (MDRD) ml/min Glucose (74-106) mg/dL POC Glucose 245 H 222 H 221 H (60-110) mg/dL Calcium (8.5-10.1) mg/dL Total Bilirubin (0.2-1.0) mg/dL AST (15-37) IU/L ALT (14-63) IU/L Alkaline Phosphatase (46-116) U/L Troponin I (0.000-0.056) ng/mL Total Protein (6.4-8.2) g/dL Albumin (3.4-5.0) g/dL Globulin (2.6-4.0) g/dL Albumin/Globulin Ratio (0.9-1.6) Lipase (73-393) U/L Urine Color Urine Appearance Urine pH (5.0-8.0) Ur Specific [place] (1.001-1.035) Urine Protein (NEGATIVE) mg/dL Urine Glucose (UA) (NEGATIVE) mg/dL Urine Ketones (NEGATIVE) mg/dL Urine Occult Blood (NEGATIVE) Urine Nitrite (NEGATIVE) Urine Bilirubin (NEGATIVE) Urine Urobilinogen (<2.0) EU/dL Ur Leukocyte Esterase (NEGATIVE) Urine RBC (0-2/HPF) Urine WBC (0-5/HPF) Ur Epithelial Cells (NONE-FEW) Urine Bacteria (NEGATIVE) Ketones (NEG) SARS-CoV-2 RNA (ABBIE) (NEGATIVE) Blood Type Antibody Screen 06/10/20 06/10/20 06/10/20 Range/Units 02:04 02:04 02:59 WBC 14.13 H (4.0-11.0) K/uL RBC 4.62 (4.50-5.90) M/uL Hgb 14.9 (13.0-17.0) g/dL Hct 41.8 (38.0-50.0) % MCV 90.5 (80.0-98.0) fL MCH 32.3 H (27.0-32.0) pg MCHC 35.6 (31.0-37.0) g/dL RDW Std Deviation 42.9 (28.0-62.0) fl RDW Coeff of Charles 13 (11.0-15.0) % Plt Count 240 (150-400) K/uL MPV 10.20 (7.40-12.00) fL Neut % (Auto) 88.8 H (48.0-80.0) % Lymph % (Auto) 6.6 L (16.0-40.0) % [place] % (Auto) 4.5 (0.0-15.0) % Eos % (Auto) 0.0 (0.0-7.0) % Baso % (Auto) 0.1 (0.0-1.5) % Neut # (Auto) 12.6 H (1.4-5.7) K/uL Lymph # (Auto) 0.9 (0.6-2.4) K/uL [place] # (Auto) 0.6 (0.0-0.8) K/uL Eos # (Auto) 0.0 (0.0-0.7) K/uL Baso # (Auto) 0.0 (0.0-0.1) K/uL Add Manual Diff Neutrophils % (Manual) (48.0-80.0) % Lymphocytes % (Manual) (16.0-40.0) % Monocytes % (Manual) (0.0-15.0) % Nucleated RBC % 0.0 /100WBC Absolute Seg Neuts (1.4-5.7) Lymphocytes # (Manual) (0.6-2.4) Monocytes # (Manual) (0.0-0.8) Nucleated RBCs # 0 K/uL INR APTT (18.6-31.3) SEC ABG pH (7.35-7.45) ABG pCO2 (35-45) mmHG ABG pO2 (75-100) mmHG ABG HCO3 (22-26) mEq/L ABG Total CO2 ABG Base Excess (-2.0-2.0) Lactate (0.20-2.00) mmol/L Sodium 143 (136-148) mmol/L Potassium 4.5 (3.5-5.1) mmol/L Chloride 109 H (98-107) mmol/L Carbon Dioxide 12.6 L (21.0-32.0) mmol/L BUN 17 (7.0-18.0) mg/dL Creatinine 1.6 H (0.8-1.3) mg/dL Est Cr Clr Drug Dosing TNP Estimated GFR (MDRD) 45.1 ml/min Glucose 242 H (74-106) mg/dL POC Glucose 227 H (60-110) mg/dL Calcium 8.0 L (8.5-10.1) mg/dL Total Bilirubin (0.2-1.0) mg/dL AST (15-37) IU/L ALT (14-63) IU/L Alkaline Phosphatase (46-116) U/L Troponin I (0.000-0.056) ng/mL Total Protein (6.4-8.2) g/dL Albumin (3.4-5.0) g/dL Globulin (2.6-4.0) g/dL Albumin/Globulin Ratio (0.9-1.6) Lipase (73-393) U/L Urine Color Urine Appearance Urine pH (5.0-8.0) Ur Specific [place] (1.001-1.035) Urine Protein (NEGATIVE) mg/dL Urine Glucose (UA) (NEGATIVE) mg/dL Urine Ketones (NEGATIVE) mg/dL Urine Occult Blood (NEGATIVE) Urine Nitrite (NEGATIVE) Urine Bilirubin (NEGATIVE) Urine Urobilinogen (<2.0) EU/dL Ur Leukocyte Esterase (NEGATIVE) Urine RBC (0-2/HPF) Urine WBC (0-5/HPF) Ur Epithelial Cells (NONE-FEW) Urine Bacteria (NEGATIVE) Ketones (NEG) SARS-CoV-2 RNA (ABBIE) (NEGATIVE) Blood Type Antibody Screen 06/10/20 06/10/20 06/10/20 Range/Units 04:13 05:07 06:10 WBC (4.0-11.0) K/uL RBC (4.50-5.90) M/uL Hgb (13.0-17.0) g/dL Hct (38.0-50.0) % MCV (80.0-98.0) fL MCH (27.0-32.0) pg MCHC (31.0-37.0) g/dL RDW Std Deviation (28.0-62.0) fl RDW Coeff of Charles (11.0-15.0) % Plt Count (150-400) K/uL MPV (7.40-12.00) fL Neut % (Auto) (48.0-80.0) % Lymph % (Auto) (16.0-40.0) % [place] % (Auto) (0.0-15.0) % Eos % (Auto) (0.0-7.0) % Baso % (Auto) (0.0-1.5) % Neut # (Auto) (1.4-5.7) K/uL Lymph # (Auto) (0.6-2.4) K/uL [place] # (Auto) (0.0-0.8) K/uL Eos # (Auto) (0.0-0.7) K/uL Baso # (Auto) (0.0-0.1) K/uL Add Manual Diff Neutrophils % (Manual) (48.0-80.0) % Lymphocytes % (Manual) (16.0-40.0) % Monocytes % (Manual) (0.0-15.0) % Nucleated RBC % /100WBC Absolute Seg Neuts (1.4-5.7) Lymphocytes # (Manual) (0.6-2.4) Monocytes # (Manual) (0.0-0.8) Nucleated RBCs # K/uL INR APTT (18.6-31.3) SEC ABG pH (7.35-7.45) ABG pCO2 (35-45) mmHG ABG pO2 (75-100) mmHG ABG HCO3 (22-26) mEq/L ABG Total CO2 ABG Base Excess (-2.0-2.0) Lactate (0.20-2.00) mmol/L Sodium 143 (136-148) mmol/L Potassium 4.1 (3.5-5.1) mmol/L Chloride 110 H (98-107) mmol/L Carbon Dioxide 14.8 L (21.0-32.0) mmol/L BUN 15 (7.0-18.0) mg/dL Creatinine 1.6 H (0.8-1.3) mg/dL Est Cr Clr Drug Dosing TNP Estimated GFR (MDRD) 45.1 ml/min Glucose 258 H (74-106) mg/dL POC Glucose 215 H 231 H (60-110) mg/dL Calcium 8.3 L (8.5-10.1) mg/dL Total Bilirubin (0.2-1.0) mg/dL AST (15-37) IU/L ALT (14-63) IU/L Alkaline Phosphatase (46-116) U/L Troponin I (0.000-0.056) ng/mL Total Protein (6.4-8.2) g/dL Albumin (3.4-5.0) g/dL Globulin (2.6-4.0) g/dL Albumin/Globulin Ratio (0.9-1.6) Lipase (73-393) U/L Urine Color Urine Appearance Urine pH (5.0-8.0) Ur Specific [place] (1.001-1.035) Urine Protein (NEGATIVE) mg/dL Urine Glucose (UA) (NEGATIVE) mg/dL Urine Ketones (NEGATIVE) mg/dL Urine Occult Blood (NEGATIVE) Urine Nitrite (NEGATIVE) Urine Bilirubin (NEGATIVE) Urine Urobilinogen (<2.0) EU/dL Ur Leukocyte Esterase (NEGATIVE) Urine RBC (0-2/HPF) Urine WBC (0-5/HPF) Ur Epithelial Cells (NONE-FEW) Urine Bacteria (NEGATIVE) Ketones (NEG) SARS-CoV-2 RNA (ABBIE) (NEGATIVE) Blood Type Antibody Screen 06/10/20 06/10/20 06/10/20 Range/Units 06:12 07:05 08:18 WBC (4.0-11.0) K/uL RBC (4.50-5.90) M/uL Hgb (13.0-17.0) g/dL Hct (38.0-50.0) % MCV (80.0-98.0) fL MCH (27.0-32.0) pg MCHC (31.0-37.0) g/dL RDW Std Deviation (28.0-62.0) fl RDW Coeff of Charles (11.0-15.0) % Plt Count (150-400) K/uL MPV (7.40-12.00) fL Neut % (Auto) (48.0-80.0) % Lymph % (Auto) (16.0-40.0) % [place] % (Auto) (0.0-15.0) % Eos % (Auto) (0.0-7.0) % Baso % (Auto) (0.0-1.5) % Neut # (Auto) (1.4-5.7) K/uL Lymph # (Auto) (0.6-2.4) K/uL [place] # (Auto) (0.0-0.8) K/uL Eos # (Auto) (0.0-0.7) K/uL Baso # (Auto) (0.0-0.1) K/uL Add Manual Diff Neutrophils % (Manual) (48.0-80.0) % Lymphocytes % (Manual) (16.0-40.0) % Monocytes % (Manual) (0.0-15.0) % Nucleated RBC % /100WBC Absolute Seg Neuts (1.4-5.7) Lymphocytes # (Manual) (0.6-2.4) Monocytes # (Manual) (0.0-0.8) Nucleated RBCs # K/uL INR APTT (18.6-31.3) SEC ABG pH (7.35-7.45) ABG pCO2 (35-45) mmHG ABG pO2 (75-100) mmHG ABG HCO3 (22-26) mEq/L ABG Total CO2 ABG Base Excess (-2.0-2.0) Lactate (0.20-2.00) mmol/L Sodium (136-148) mmol/L Potassium (3.5-5.1) mmol/L Chloride (98-107) mmol/L Carbon Dioxide (21.0-32.0) mmol/L BUN (7.0-18.0) mg/dL Creatinine (0.8-1.3) mg/dL Est Cr Clr Drug Dosing Estimated GFR (MDRD) ml/min Glucose (74-106) mg/dL POC Glucose 217 H 233 H 209 H (60-110) mg/dL Calcium (8.5-10.1) mg/dL Total Bilirubin (0.2-1.0) mg/dL AST (15-37) IU/L ALT (14-63) IU/L Alkaline Phosphatase (46-116) U/L Troponin I (0.000-0.056) ng/mL Total Protein (6.4-8.2) g/dL Albumin (3.4-5.0) g/dL Globulin (2.6-4.0) g/dL Albumin/Globulin Ratio (0.9-1.6) Lipase (73-393) U/L Urine Color Urine Appearance Urine pH (5.0-8.0) Ur Specific [place] (1.001-1.035) Urine Protein (NEGATIVE) mg/dL Urine Glucose (UA) (NEGATIVE) mg/dL Urine Ketones (NEGATIVE) mg/dL Urine Occult Blood (NEGATIVE) Urine Nitrite (NEGATIVE) Urine Bilirubin (NEGATIVE) Urine Urobilinogen (<2.0) EU/dL Ur Leukocyte Esterase (NEGATIVE) Urine RBC (0-2/HPF) Urine WBC (0-5/HPF) Ur Epithelial Cells (NONE-FEW) Urine Bacteria (NEGATIVE) Ketones (NEG) SARS-CoV-2 RNA (ABBIE) (NEGATIVE) Blood Type Antibody Screen 06/10/20 06/10/20 06/10/20 Range/Units 09:09 10:06 10:06 WBC (4.0-11.0) K/uL RBC (4.50-5.90) M/uL Hgb (13.0-17.0) g/dL Hct (38.0-50.0) % MCV (80.0-98.0) fL MCH (27.0-32.0) pg MCHC (31.0-37.0) g/dL RDW Std Deviation (28.0-62.0) fl RDW Coeff of Charles (11.0-15.0) % Plt Count (150-400) K/uL MPV (7.40-12.00) fL Neut % (Auto) (48.0-80.0) % Lymph % (Auto) (16.0-40.0) % [place] % (Auto) (0.0-15.0) % Eos % (Auto) (0.0-7.0) % Baso % (Auto) (0.0-1.5) % Neut # (Auto) (1.4-5.7) K/uL Lymph # (Auto) (0.6-2.4) K/uL [place] # (Auto) (0.0-0.8) K/uL Eos # (Auto) (0.0-0.7) K/uL Baso # (Auto) (0.0-0.1) K/uL Add Manual Diff Neutrophils % (Manual) (48.0-80.0) % Lymphocytes % (Manual) (16.0-40.0) % Monocytes % (Manual) (0.0-15.0) % Nucleated RBC % /100WBC Absolute Seg Neuts (1.4-5.7) Lymphocytes # (Manual) (0.6-2.4) Monocytes # (Manual) (0.0-0.8) Nucleated RBCs # K/uL INR APTT (18.6-31.3) SEC ABG pH (7.35-7.45) ABG pCO2 (35-45) mmHG ABG pO2 (75-100) mmHG ABG HCO3 (22-26) mEq/L ABG Total CO2 ABG Base Excess (-2.0-2.0) Lactate (0.20-2.00) mmol/L Sodium 142 (136-148) mmol/L Potassium 3.9 (3.5-5.1) mmol/L Chloride 108 H (98-107) mmol/L Carbon Dioxide 16.3 L (21.0-32.0) mmol/L BUN 13 (7.0-18.0) mg/dL Creatinine 1.5 H (0.8-1.3) mg/dL Est Cr Clr Drug Dosing TNP Estimated GFR (MDRD) 48.6 ml/min Glucose 251 H (74-106) mg/dL POC Glucose 207 H 232 H (60-110) mg/dL Calcium 8.2 L (8.5-10.1) mg/dL Total Bilirubin (0.2-1.0) mg/dL AST (15-37) IU/L ALT (14-63) IU/L Alkaline Phosphatase (46-116) U/L Troponin I (0.000-0.056) ng/mL Total Protein (6.4-8.2) g/dL Albumin (3.4-5.0) g/dL Globulin (2.6-4.0) g/dL Albumin/Globulin Ratio (0.9-1.6) Lipase (73-393) U/L Urine Color Urine Appearance Urine pH (5.0-8.0) Ur Specific [place] (1.001-1.035) Urine Protein (NEGATIVE) mg/dL Urine Glucose (UA) (NEGATIVE) mg/dL Urine Ketones (NEGATIVE) mg/dL Urine Occult Blood (NEGATIVE) Urine Nitrite (NEGATIVE) Urine Bilirubin (NEGATIVE) Urine Urobilinogen (<2.0) EU/dL Ur Leukocyte Esterase (NEGATIVE) Urine RBC (0-2/HPF) Urine WBC (0-5/HPF) Ur Epithelial Cells (NONE-FEW) Urine Bacteria (NEGATIVE) Ketones (NEG) SARS-CoV-2 RNA (ABBIE) (NEGATIVE) Blood Type Antibody Screen Med Orders - Current: Current Medications Dextrose/Water (50% Dextrose In Water 50 Ml Syringe) 50 ml IV ASDIRECTED PRN PRN Reason: Hypoglycemia Glucagon (Glucagon,Human Recombinant 1 Mg Vial) 1 mg IM ASDIRECTED PRN PRN Reason: Hypoglycemia Sodium Chloride (Normal Saline) 1,000 mls @ 999 mls/hr IV ASDIRECTED [facility] Last Admin: 06/09/20 17:12 Dose: 999 mls/hr Documented by: Pantoprazole Sodium 40 mg/ (Sodium Chloride) 10 mls @ 300 mls/hr IV Q12H [facility] Last Admin: 06/10/20 04:30 Dose: 300 mls/hr Documented by: Lactated Ringer's (Ringers, Lactated) 1,000 mls @ 200 mls/hr IV ASDIRECTED ESTEPHANIA Last Infusion: 06/10/20 00:09 Dose: 0 mls/hr Documented by: Insulin Regular in 0.9 % NACL (Myxredlin In Ns 100 Unit/100 Ml) 100 mls @ 7 mls/hr IV TITRATE ESTEPHANIA; Protocol Last Titration: 06/10/20 11:07 Dose: 2.5 unit/hr, 2.5 mls/hr Documented by: Dextrose/Sodium Chloride (Dextrose 5%-1/2 Ns) 1,000 mls @ 150 mls/hr IV ASDIRECTED ESTEPHANIA Last Admin: 06/10/20 07:30 Dose: 150 mls/hr Documented by: Metoclopramide HCl (Metoclopramide 10 Mg/2 Ml Sdv) 5 mg IVPUSH Q6H PRN PRN Reason: Nausea Last Admin: 06/10/20 05:31 Dose: 5 mg Documented by: Ondansetron HCl (Ondansetron 4 Mg/2 Ml Sdv) 4 mg IVPUSH Q4H PRN PRN Reason: Nausea/Vomiting Last Admin: 06/10/20 01:15 Dose: 4 mg Documented by: Sodium Chloride (Sodium Chloride 0.9% 10 Ml Syringe) 10 ml FLUSH ASDIRECTED PRN PRN Reason: Keep Vein Open Last Admin: 06/09/20 20:13 Dose: 10 ml Documented by: Sodium Chloride (Sodium Chloride 0.9% 2.5 Ml Syringe) 2.5 ml FLUSH ASDIRECTED PRN PRN Reason: Keep Vein Open Discontinued Medications Dextrose/Water (50% Dextrose In Water 50 Ml Syringe) 50 ml IV ASDIRECTED PRN PRN Reason: Hypoglycemia Dextrose/Water (50% Dextrose In Water 50 Ml Syringe) 50 ml IV ASDIRECTED PRN PRN Reason: Hypoglycemia Glucagon (Glucagon,Human Recombinant 1 Mg Vial) 1 mg IM ASDIRECTED PRN PRN Reason: Hypoglycemia Glucagon (Glucagon,Human Recombinant 1 Mg Vial) 1 mg IM ASDIRECTED PRN PRN Reason: Hypoglycemia Pantoprazole Sodium 40 mg/ (Sodium Chloride) 10 mls @ 300 mls/hr IV NOW ONE Stop: 06/09/20 15:43 Last Admin: 06/09/20 16:17 Dose: 300 mls/hr Documented by: Sodium Chloride (Normal Saline) 1,000 mls @ 1,000 mls/hr IV .Bolus ONE Stop: 06/09/20 16:43 Last Admin: 06/09/20 16:17 Dose: 1,000 mls/hr Documented by: Lactated Ringer's (Ringers, Lactated) 1,000 mls @ 150 mls/hr IV ASDIRECTED ESTEPHANIA Last Infusion: 06/09/20 20:15 Dose: 0 mls/hr Documented by: Insulin Human Regular 100 unit (/ Sodium Chloride) 100 mls @ 7 mls/hr IV TITRATE ESTEPHANIA; Protocol Lactated Ringer's (Ringers, Lactated) 1,000 mls @ 999 mls/hr IV ONETIME ONE Stop: 06/09/20 21:00 Last Admin: 06/09/20 20:00 Dose: 999 mls/hr Documented by: Insulin Human Isoph/Insulin Regular (Insulin Nph/Insulin Regular,Human 70-30 100 Units/Ml 10 Ml Vial) 10 unit SUBCUT ONETIME ONE Stop: 06/09/20 15:46 Last Admin: 06/09/20 16:09 Dose: Not Given Documented by: Insulin Human Regular (Insulin Regular, Human 100 Units/Ml 10 Ml Vial) 10 unit IVPUSH ONETIME ONE; Protocol Stop: 06/09/20 16:10 Last Admin: 06/09/20 16:15 Dose: 10 unit Documented by: Insulin Human Regular (Insulin Regular, Human 100 Units/Ml 10 Ml Vial) 10 unit IVPUSH ONETIME ONE; Protocol Stop: 06/09/20 17:07 Last Admin: 06/09/20 17:15 Dose: 10 unit Documented by: Insulin Human Regular (Insulin Regular, Human 100 Units/Ml 10 Ml Vial) 10 unit IVPUSH ONETIME ONE; Protocol Stop: 06/09/20 17:09 Last Admin: 06/09/20 17:17 Dose: Not Given Documented by: Ondansetron HCl (Ondansetron 4 Mg/2 Ml Sdv) 4 mg IVPUSH ONETIME ONE Stop: 06/09/20 15:43 Last Admin: 06/09/20 16:17 Dose: 4 mg Documented by: Ondansetron HCl (Ondansetron 4 Mg/2 Ml Sdv) Confirm Administered Dose 4 mg .ROUTE .STK-MED ONE Stop: 06/09/20 20:14 Last Admin: 06/09/20 20:16 Dose: Not Given Documented by: - Exam General: Alert, Cooperative Neck: Supple Lungs: Clear to Auscultation, Normal Respiratory Effort Cardiovascular: Regular Rate, Regular Rhythm GI/Abdominal Exam: Normal Bowel Sounds, Soft, Non-Tender Extremities: Non-Tender, No Pedal Edema Neurological: No New Focal Deficit - Patient Data Lab Results Last 24 hrs: Laboratory Results - last 24 hr 06/09/20 06/09/20 06/09/20 Range/Units 15:54 16:28 17:09 WBC (4.0-11.0) K/uL RBC (4.50-5.90) M/uL Hgb (13.0-17.0) g/dL Hct (38.0-50.0) % MCV (80.0-98.0) fL MCH (27.0-32.0) pg MCHC (31.0-37.0) g/dL RDW Std Deviation (28.0-62.0) fl RDW Coeff of Charles (11.0-15.0) % Plt Count (150-400) K/uL MPV (7.40-12.00) fL Neut % (Auto) (48.0-80.0) % Lymph % (Auto) (16.0-40.0) % [place] % (Auto) (0.0-15.0) % Eos % (Auto) (0.0-7.0) % Baso % (Auto) (0.0-1.5) % Neut # (Auto) (1.4-5.7) K/uL Lymph # (Auto) (0.6-2.4) K/uL [place] # (Auto) (0.0-0.8) K/uL Eos # (Auto) (0.0-0.7) K/uL Baso # (Auto) (0.0-0.1) K/uL Add Manual Diff Neutrophils % (Manual) (48.0-80.0) % Lymphocytes % (Manual) (16.0-40.0) % Monocytes % (Manual) (0.0-15.0) % Nucleated RBC % /100WBC Absolute Seg Neuts (1.4-5.7) Lymphocytes # (Manual) (0.6-2.4) Monocytes # (Manual) (0.0-0.8) Nucleated RBCs # K/uL INR APTT (18.6-31.3) SEC ABG pH 7.059 L* (7.35-7.45) ABG pCO2 14 L (35-45) mmHG ABG pO2 109 H (75-100) mmHG ABG HCO3 4 L (22-26) mEq/L ABG Total CO2 3.6 ABG Base Excess -24.4 L (-2.0-2.0) Lactate (0.20-2.00) mmol/L Sodium (136-148) mmol/L Potassium (3.5-5.1) mmol/L Chloride (98-107) mmol/L Carbon Dioxide (21.0-32.0) mmol/L BUN (7.0-18.0) mg/dL Creatinine (0.8-1.3) mg/dL Est Cr Clr Drug Dosing Estimated GFR (MDRD) ml/min Glucose (74-106) mg/dL POC Glucose > 500 H (60-110) mg/dL Calcium (8.5-10.1) mg/dL Total Bilirubin (0.2-1.0) mg/dL AST (15-37) IU/L ALT (14-63) IU/L Alkaline Phosphatase (46-116) U/L Troponin I (0.000-0.056) ng/mL Total Protein (6.4-8.2) g/dL Albumin (3.4-5.0) g/dL Globulin (2.6-4.0) g/dL Albumin/Globulin Ratio (0.9-1.6) Lipase (73-393) U/L Urine Color YELLOW Urine Appearance HAZY Urine pH 5.5 (5.0-8.0) Ur Specific [place] 1.025 (1.001-1.035) Urine Protein TRACE H (NEGATIVE) mg/dL Urine Glucose (UA) 250 H (NEGATIVE) mg/dL Urine Ketones >=80 (NEGATIVE) mg/dL Urine Occult Blood TRACE-INTACT H (NEGATIVE) Urine Nitrite NEGATIVE (NEGATIVE) Urine Bilirubin NEGATIVE (NEGATIVE) Urine Urobilinogen 0.2 (<2.0) EU/dL Ur Leukocyte Esterase NEGATIVE (NEGATIVE) Urine RBC 0-1 (0-2/HPF) Urine WBC 0-1 (0-5/HPF) Ur Epithelial Cells RARE (NONE-FEW) Urine Bacteria RARE (NEGATIVE) Ketones (NEG) SARS-CoV-2 RNA (ABBIE) (NEGATIVE) Blood Type Antibody Screen 06/09/20 06/09/20 06/09/20 Range/Units 17:17 17:20 18:17 WBC 19.77 H (4.0-11.0) K/uL RBC 4.86 (4.50-5.90) M/uL Hgb 15.4 (13.0-17.0) g/dL Hct 44.3 (38.0-50.0) % MCV 91.2 (80.0-98.0) fL MCH 31.7 (27.0-32.0) pg MCHC 34.8 (31.0-37.0) g/dL RDW Std Deviation 43.1 (28.0-62.0) fl RDW Coeff of Charles 13 (11.0-15.0) % Plt Count 268 (150-400) K/uL MPV 10.30 (7.40-12.00) fL Neut % (Auto) (48.0-80.0) % Lymph % (Auto) (16.0-40.0) % [place] % (Auto) (0.0-15.0) % Eos % (Auto) (0.0-7.0) % Baso % (Auto) (0.0-1.5) % Neut # (Auto) (1.4-5.7) K/uL Lymph # (Auto) (0.6-2.4) K/uL [place] # (Auto) (0.0-0.8) K/uL Eos # (Auto) (0.0-0.7) K/uL Baso # (Auto) (0.0-0.1) K/uL Add Manual Diff YES Neutrophils % (Manual) 94 H (48.0-80.0) % Lymphocytes % (Manual) 4 L (16.0-40.0) % Monocytes % (Manual) 2 (0.0-15.0) % Nucleated RBC % 0.0 /100WBC Absolute Seg Neuts 18.6 H (1.4-5.7) Lymphocytes # (Manual) 0.8 (0.6-2.4) Monocytes # (Manual) 0.4 (0.0-0.8) Nucleated RBCs # 0 K/uL INR APTT (18.6-31.3) SEC ABG pH (7.35-7.45) ABG pCO2 (35-45) mmHG ABG pO2 (75-100) mmHG ABG HCO3 (22-26) mEq/L ABG Total CO2 ABG Base Excess (-2.0-2.0) Lactate 3.2 H* (0.20-2.00) mmol/L Sodium (136-148) mmol/L Potassium (3.5-5.1) mmol/L Chloride (98-107) mmol/L Carbon Dioxide (21.0-32.0) mmol/L BUN (7.0-18.0) mg/dL Creatinine (0.8-1.3) mg/dL Est Cr Clr Drug Dosing Estimated GFR (MDRD) ml/min Glucose (74-106) mg/dL POC Glucose (60-110) mg/dL Calcium (8.5-10.1) mg/dL Total Bilirubin (0.2-1.0) mg/dL AST (15-37) IU/L ALT (14-63) IU/L Alkaline Phosphatase (46-116) U/L Troponin I (0.000-0.056) ng/mL Total Protein (6.4-8.2) g/dL Albumin (3.4-5.0) g/dL Globulin (2.6-4.0) g/dL Albumin/Globulin Ratio (0.9-1.6) Lipase (73-393) U/L Urine Color Urine Appearance Urine pH (5.0-8.0) Ur Specific [place] (1.001-1.035) Urine Protein (NEGATIVE) mg/dL Urine Glucose (UA) (NEGATIVE) mg/dL Urine Ketones (NEGATIVE) mg/dL Urine Occult Blood (NEGATIVE) Urine Nitrite (NEGATIVE) Urine Bilirubin (NEGATIVE) Urine Urobilinogen (<2.0) EU/dL Ur Leukocyte Esterase (NEGATIVE) Urine RBC (0-2/HPF) Urine WBC (0-5/HPF) Ur Epithelial Cells (NONE-FEW) Urine Bacteria (NEGATIVE) Ketones (NEG) SARS-CoV-2 RNA (ABBIE) NEGATIVE (NEGATIVE) Blood Type Antibody Screen 06/09/20 06/09/20 06/09/20 Range/Units 18:17 18:17 18:17 WBC (4.0-11.0) K/uL RBC (4.50-5.90) M/uL Hgb (13.0-17.0) g/dL Hct (38.0-50.0) % MCV (80.0-98.0) fL MCH (27.0-32.0) pg MCHC (31.0-37.0) g/dL RDW Std Deviation (28.0-62.0) fl RDW Coeff of Charles (11.0-15.0) % Plt Count (150-400) K/uL MPV (7.40-12.00) fL Neut % (Auto) (48.0-80.0) % Lymph % (Auto) (16.0-40.0) % [place] % (Auto) (0.0-15.0) % Eos % (Auto) (0.0-7.0) % Baso % (Auto) (0.0-1.5) % Neut # (Auto) (1.4-5.7) K/uL Lymph # (Auto) (0.6-2.4) K/uL [place] # (Auto) (0.0-0.8) K/uL Eos # (Auto) (0.0-0.7) K/uL Baso # (Auto) (0.0-0.1) K/uL Add Manual Diff Neutrophils % (Manual) (48.0-80.0) % Lymphocytes % (Manual) (16.0-40.0) % Monocytes % (Manual) (0.0-15.0) % Nucleated RBC % /100WBC Absolute Seg Neuts (1.4-5.7) Lymphocytes # (Manual) (0.6-2.4) Monocytes # (Manual) (0.0-0.8) Nucleated RBCs # K/uL INR 1.11 APTT 19.5 (18.6-31.3) SEC ABG pH (7.35-7.45) ABG pCO2 (35-45) mmHG ABG pO2 (75-100) mmHG ABG HCO3 (22-26) mEq/L ABG Total CO2 ABG Base Excess (-2.0-2.0) Lactate (0.20-2.00) mmol/L Sodium 141 (136-148) mmol/L Potassium 4.2 (3.5-5.1) mmol/L Chloride 105 (98-107) mmol/L Carbon Dioxide 7.0 L (21.0-32.0) mmol/L BUN 22 H (7.0-18.0) mg/dL Creatinine 1.5 H (0.8-1.3) mg/dL Est Cr Clr Drug Dosing TNP Estimated GFR (MDRD) 48.6 ml/min Glucose 383 H (74-106) mg/dL POC Glucose (60-110) mg/dL Calcium 7.8 L (8.5-10.1) mg/dL Total Bilirubin 1.2 H (0.2-1.0) mg/dL AST 15 (15-37) IU/L ALT 24 (14-63) IU/L Alkaline Phosphatase 133 H (46-116) U/L Troponin I < 0.050 (0.000-0.056) ng/mL Total Protein 6.9 (6.4-8.2) g/dL Albumin 4.3 (3.4-5.0) g/dL Globulin 2.6 (2.6-4.0) g/dL Albumin/Globulin Ratio 1.7 H (0.9-1.6) Lipase 43 L (73-393) U/L Urine Color Urine Appearance Urine pH (5.0-8.0) Ur Specific [place] (1.001-1.035) Urine Protein (NEGATIVE) mg/dL Urine Glucose (UA) (NEGATIVE) mg/dL Urine Ketones (NEGATIVE) mg/dL Urine Occult Blood (NEGATIVE) Urine Nitrite (NEGATIVE) Urine Bilirubin (NEGATIVE) Urine Urobilinogen (<2.0) EU/dL Ur Leukocyte Esterase (NEGATIVE) Urine RBC (0-2/HPF) Urine WBC (0-5/HPF) Ur Epithelial Cells (NONE-FEW) Urine Bacteria (NEGATIVE) Ketones (NEG) SARS-CoV-2 RNA (ABBIE) (NEGATIVE) Blood Type Antibody Screen 04/02/21 04/02/21 04/02/21 Range/Units 18:17 18:17 18:24 WBC (4.0-11.0) K/uL RBC (4.50-5.90) M/uL Hgb (13.0-17.0) g/dL Hct (38.0-50.0) % MCV (80.0-98.0) fL MCH (27.0-32.0) pg MCHC (31.0-37.0) g/dL RDW Std Deviation (28.0-62.0) fl RDW Coeff of Charles (11.0-15.0) % Plt Count (150-400) K/uL MPV (7.40-12.00) fL Neut % (Auto) (48.0-80.0) % Lymph % (Auto) (16.0-40.0) % [place] % (Auto) (0.0-15.0) % Eos % (Auto) (0.0-7.0) % Baso % (Auto) (0.0-1.5) % Neut # (Auto) (1.4-5.7) K/uL Lymph # (Auto) (0.6-2.4) K/uL [place] # (Auto) (0.0-0.8) K/uL Eos # (Auto) (0.0-0.7) K/uL Baso # (Auto) (0.0-0.1) K/uL Add Manual Diff Neutrophils % (Manual) (48.0-80.0) % Lymphocytes % (Manual) (16.0-40.0) % Monocytes % (Manual) (0.0-15.0) % Nucleated RBC % /100WBC Absolute Seg Neuts (1.4-5.7) Lymphocytes # (Manual) (0.6-2.4) Monocytes # (Manual) (0.0-0.8) Nucleated RBCs # K/uL INR APTT (18.6-31.3) SEC ABG pH (7.35-7.45) ABG pCO2 (35-45) mmHG ABG pO2 (75-100) mmHG ABG HCO3 (22-26) mEq/L ABG Total CO2 ABG Base Excess (-2.0-2.0) Lactate (0.20-2.00) mmol/L Sodium (136-148) mmol/L Potassium (3.5-5.1) mmol/L Chloride (98-107) mmol/L Carbon Dioxide (21.0-32.0) mmol/L BUN (7.0-18.0) mg/dL Creatinine (0.8-1.3) mg/dL Est Cr Clr Drug Dosing Estimated GFR (MDRD) ml/min Glucose (74-106) mg/dL POC Glucose 379 H (60-110) mg/dL Calcium (8.5-10.1) mg/dL Total Bilirubin (0.2-1.0) mg/dL AST (15-37) IU/L ALT (14-63) IU/L Alkaline Phosphatase (46-116) U/L Troponin I (0.000-0.056) ng/mL Total Protein (6.4-8.2) g/dL Albumin (3.4-5.0) g/dL Globulin (2.6-4.0) g/dL Albumin/Globulin Ratio (0.9-1.6) Lipase (73-393) U/L Urine Color Urine Appearance Urine pH (5.0-8.0) Ur Specific [place] (1.001-1.035) Urine Protein (NEGATIVE) mg/dL Urine Glucose (UA) (NEGATIVE) mg/dL Urine Ketones (NEGATIVE) mg/dL Urine Occult Blood (NEGATIVE) Urine Nitrite (NEGATIVE) Urine Bilirubin (NEGATIVE) Urine Urobilinogen (<2.0) EU/dL Ur Leukocyte Esterase (NEGATIVE) Urine RBC (0-2/HPF) Urine WBC (0-5/HPF) Ur Epithelial Cells (NONE-FEW) Urine Bacteria (NEGATIVE) Ketones MODERATE H (NEG) SARS-CoV-2 RNA (ABBIE) (NEGATIVE) Blood Type B NEGATIVE Antibody Screen NEGATIVE 06/09/20 06/09/20 06/09/20 Range/Units 19:56 21:07 22:04 WBC (4.0-11.0) K/uL RBC (4.50-5.90) M/uL Hgb (13.0-17.0) g/dL Hct (38.0-50.0) % MCV (80.0-98.0) fL MCH (27.0-32.0) pg MCHC (31.0-37.0) g/dL RDW Std Deviation (28.0-62.0) fl RDW Coeff of Charles (11.0-15.0) % Plt Count (150-400) K/uL MPV (7.40-12.00) fL Neut % (Auto) (48.0-80.0) % Lymph % (Auto) (16.0-40.0) % [place] % (Auto) (0.0-15.0) % Eos % (Auto) (0.0-7.0) % Baso % (Auto) (0.0-1.5) % Neut # (Auto) (1.4-5.7) K/uL Lymph # (Auto) (0.6-2.4) K/uL [place] # (Auto) (0.0-0.8) K/uL Eos # (Auto) (0.0-0.7) K/uL Baso # (Auto) (0.0-0.1) K/uL Add Manual Diff Neutrophils % (Manual) (48.0-80.0) % Lymphocytes % (Manual) (16.0-40.0) % Monocytes % (Manual) (0.0-15.0) % Nucleated RBC % /100WBC Absolute Seg Neuts (1.4-5.7) Lymphocytes # (Manual) (0.6-2.4) Monocytes # (Manual) (0.0-0.8) Nucleated RBCs # K/uL INR APTT (18.6-31.3) SEC ABG pH (7.35-7.45) ABG pCO2 (35-45) mmHG ABG pO2 (75-100) mmHG ABG HCO3 (22-26) mEq/L ABG Total CO2 ABG Base Excess (-2.0-2.0) Lactate (0.20-2.00) mmol/L Sodium (136-148) mmol/L Potassium (3.5-5.1) mmol/L Chloride (98-107) mmol/L Carbon Dioxide (21.0-32.0) mmol/L BUN (7.0-18.0) mg/dL Creatinine (0.8-1.3) mg/dL Est Cr Clr Drug Dosing Estimated GFR (MDRD) ml/min Glucose (74-106) mg/dL POC Glucose 405 H 333 H 322 H (60-110) mg/dL Calcium (8.5-10.1) mg/dL Total Bilirubin (0.2-1.0) mg/dL AST (15-37) IU/L ALT (14-63) IU/L Alkaline Phosphatase (46-116) U/L Troponin I (0.000-0.056) ng/mL Total Protein (6.4-8.2) g/dL Albumin (3.4-5.0) g/dL Globulin (2.6-4.0) g/dL Albumin/Globulin Ratio (0.9-1.6) Lipase (73-393) U/L Urine Color Urine Appearance Urine pH (5.0-8.0) Ur Specific [place] (1.001-1.035) Urine Protein (NEGATIVE) mg/dL Urine Glucose (UA) (NEGATIVE) mg/dL Urine Ketones (NEGATIVE) mg/dL Urine Occult Blood (NEGATIVE) Urine Nitrite (NEGATIVE) Urine Bilirubin (NEGATIVE) Urine Urobilinogen (<2.0) EU/dL Ur Leukocyte Esterase (NEGATIVE) Urine RBC (0-2/HPF) Urine WBC (0-5/HPF) Ur Epithelial Cells (NONE-FEW) Urine Bacteria (NEGATIVE) Ketones (NEG) SARS-CoV-2 RNA (ABBIE) (NEGATIVE) Blood Type Antibody Screen 06/09/20 06/09/20 06/09/20 Range/Units 22:05 22:05 23:05 WBC (4.0-11.0) K/uL RBC (4.50-5.90) M/uL Hgb (13.0-17.0) g/dL Hct (38.0-50.0) % MCV (80.0-98.0) fL MCH (27.0-32.0) pg MCHC (31.0-37.0) g/dL RDW Std Deviation (28.0-62.0) fl RDW Coeff of Charles (11.0-15.0) % Plt Count (150-400) K/uL MPV (7.40-12.00) fL Neut % (Auto) (48.0-80.0) % Lymph % (Auto) (16.0-40.0) % [place] % (Auto) (0.0-15.0) % Eos % (Auto) (0.0-7.0) % Baso % (Auto) (0.0-1.5) % Neut # (Auto) (1.4-5.7) K/uL Lymph # (Auto) (0.6-2.4) K/uL [place] # (Auto) (0.0-0.8) K/uL Eos # (Auto) (0.0-0.7) K/uL Baso # (Auto) (0.0-0.1) K/uL Add Manual Diff Neutrophils % (Manual) (48.0-80.0) % Lymphocytes % (Manual) (16.0-40.0) % Monocytes % (Manual) (0.0-15.0) % Nucleated RBC % /100WBC Absolute Seg Neuts (1.4-5.7) Lymphocytes # (Manual) (0.6-2.4) Monocytes # (Manual) (0.0-0.8) Nucleated RBCs # K/uL INR APTT (18.6-31.3) SEC ABG pH (7.35-7.45) ABG pCO2 (35-45) mmHG ABG pO2 (75-100) mmHG ABG HCO3 (22-26) mEq/L ABG Total CO2 ABG Base Excess (-2.0-2.0) Lactate 1.8 (0.20-2.00) mmol/L Sodium 142 (136-148) mmol/L Potassium 4.6 (3.5-5.1) mmol/L Chloride 107 (98-107) mmol/L Carbon Dioxide 7.3 L (21.0-32.0) mmol/L BUN 19 H (7.0-18.0) mg/dL Creatinine 1.7 H (0.8-1.3) mg/dL Est Cr Clr Drug Dosing TNP Estimated GFR (MDRD) 42.1 ml/min Glucose 351 H (74-106) mg/dL POC Glucose 306 H (60-110) mg/dL Calcium 8.3 L (8.5-10.1) mg/dL Total Bilirubin (0.2-1.0) mg/dL AST (15-37) IU/L ALT (14-63) IU/L Alkaline Phosphatase (46-116) U/L Troponin I (0.000-0.056) ng/mL Total Protein (6.4-8.2) g/dL Albumin (3.4-5.0) g/dL Globulin (2.6-4.0) g/dL Albumin/Globulin Ratio (0.9-1.6) Lipase (73-393) U/L Urine Color Urine Appearance Urine pH (5.0-8.0) Ur Specific [place] (1.001-1.035) Urine Protein (NEGATIVE) mg/dL Urine Glucose (UA) (NEGATIVE) mg/dL Urine Ketones (NEGATIVE) mg/dL Urine Occult Blood (NEGATIVE) Urine Nitrite (NEGATIVE) Urine Bilirubin (NEGATIVE) Urine Urobilinogen (<2.0) EU/dL Ur Leukocyte Esterase (NEGATIVE) Urine RBC (0-2/HPF) Urine WBC (0-5/HPF) Ur Epithelial Cells (NONE-FEW) Urine Bacteria (NEGATIVE) Ketones (NEG) SARS-CoV-2 RNA (ABBIE) (NEGATIVE) Blood Type Antibody Screen 06/10/20 06/10/20 06/10/20 Range/Units 00:00 01:01 02:03 WBC (4.0-11.0) K/uL RBC (4.50-5.90) M/uL Hgb (13.0-17.0) g/dL Hct (38.0-50.0) % MCV (80.0-98.0) fL MCH (27.0-32.0) pg MCHC (31.0-37.0) g/dL RDW Std Deviation (28.0-62.0) fl RDW Coeff of Charles (11.0-15.0) % Plt Count (150-400) K/uL MPV (7.40-12.00) fL Neut % (Auto) (48.0-80.0) % Lymph % (Auto) (16.0-40.0) % [place] % (Auto) (0.0-15.0) % Eos % (Auto) (0.0-7.0) % Baso % (Auto) (0.0-1.5) % Neut # (Auto) (1.4-5.7) K/uL Lymph # (Auto) (0.6-2.4) K/uL [place] # (Auto) (0.0-0.8) K/uL Eos # (Auto) (0.0-0.7) K/uL Baso # (Auto) (0.0-0.1) K/uL Add Manual Diff Neutrophils % (Manual) (48.0-80.0) % Lymphocytes % (Manual) (16.0-40.0) % Monocytes % (Manual) (0.0-15.0) % Nucleated RBC % /100WBC Absolute Seg Neuts (1.4-5.7) Lymphocytes # (Manual) (0.6-2.4) Monocytes # (Manual) (0.0-0.8) Nucleated RBCs # K/uL INR APTT (18.6-31.3) SEC ABG pH (7.35-7.45) ABG pCO2 (35-45) mmHG ABG pO2 (75-100) mmHG ABG HCO3 (22-26) mEq/L ABG Total CO2 ABG Base Excess (-2.0-2.0) Lactate (0.20-2.00) mmol/L Sodium (136-148) mmol/L Potassium (3.5-5.1) mmol/L Chloride (98-107) mmol/L Carbon Dioxide (21.0-32.0) mmol/L BUN (7.0-18.0) mg/dL Creatinine (0.8-1.3) mg/dL Est Cr Clr Drug Dosing Estimated GFR (MDRD) ml/min Glucose (74-106) mg/dL POC Glucose 245 H 222 H 221 H (60-110) mg/dL Calcium (8.5-10.1) mg/dL Total Bilirubin (0.2-1.0) mg/dL AST (15-37) IU/L ALT (14-63) IU/L Alkaline Phosphatase (46-116) U/L Troponin I (0.000-0.056) ng/mL Total Protein (6.4-8.2) g/dL Albumin (3.4-5.0) g/dL Globulin (2.6-4.0) g/dL Albumin/Globulin Ratio (0.9-1.6) Lipase (73-393) U/L Urine Color Urine Appearance Urine pH (5.0-8.0) Ur Specific [place] (1.001-1.035) Urine Protein (NEGATIVE) mg/dL Urine Glucose (UA) (NEGATIVE) mg/dL Urine Ketones (NEGATIVE) mg/dL Urine Occult Blood (NEGATIVE) Urine Nitrite (NEGATIVE) Urine Bilirubin (NEGATIVE) Urine Urobilinogen (<2.0) EU/dL Ur Leukocyte Esterase (NEGATIVE) Urine RBC (0-2/HPF) Urine WBC (0-5/HPF) Ur Epithelial Cells (NONE-FEW) Urine Bacteria (NEGATIVE) Ketones (NEG) SARS-CoV-2 RNA (ABBIE) (NEGATIVE) Blood Type Antibody Screen 06/10/20 06/10/20 06/10/20 Range/Units 02:04 02:04 02:59 WBC 14.13 H (4.0-11.0) K/uL RBC 4.62 (4.50-5.90) M/uL Hgb 14.9 (13.0-17.0) g/dL Hct 41.8 (38.0-50.0) % MCV 90.5 (80.0-98.0) fL MCH 32.3 H (27.0-32.0) pg MCHC 35.6 (31.0-37.0) g/dL RDW Std Deviation 42.9 (28.0-62.0) fl RDW Coeff of Charles 13 (11.0-15.0) % Plt Count 240 (150-400) K/uL MPV 10.20 (7.40-12.00) fL Neut % (Auto) 88.8 H (48.0-80.0) % Lymph % (Auto) 6.6 L (16.0-40.0) % [place] % (Auto) 4.5 (0.0-15.0) % Eos % (Auto) 0.0 (0.0-7.0) % Baso % (Auto) 0.1 (0.0-1.5) % Neut # (Auto) 12.6 H (1.4-5.7) K/uL Lymph # (Auto) 0.9 (0.6-2.4) K/uL [place] # (Auto) 0.6 (0.0-0.8) K/uL Eos # (Auto) 0.0 (0.0-0.7) K/uL Baso # (Auto) 0.0 (0.0-0.1) K/uL Add Manual Diff Neutrophils % (Manual) (48.0-80.0) % Lymphocytes % (Manual) (16.0-40.0) % Monocytes % (Manual) (0.0-15.0) % Nucleated RBC % 0.0 /100WBC Absolute Seg Neuts (1.4-5.7) Lymphocytes # (Manual) (0.6-2.4) Monocytes # (Manual) (0.0-0.8) Nucleated RBCs # 0 K/uL INR APTT (18.6-31.3) SEC ABG pH (7.35-7.45) ABG pCO2 (35-45) mmHG ABG pO2 (75-100) mmHG ABG HCO3 (22-26) mEq/L ABG Total CO2 ABG Base Excess (-2.0-2.0) Lactate (0.20-2.00) mmol/L Sodium 143 (136-148) mmol/L Potassium 4.5 (3.5-5.1) mmol/L Chloride 109 H (98-107) mmol/L Carbon Dioxide 12.6 L (21.0-32.0) mmol/L BUN 17 (7.0-18.0) mg/dL Creatinine 1.6 H (0.8-1.3) mg/dL Est Cr Clr Drug Dosing TNP Estimated GFR (MDRD) 45.1 ml/min Glucose 242 H (74-106) mg/dL POC Glucose 227 H (60-110) mg/dL Calcium 8.0 L (8.5-10.1) mg/dL Total Bilirubin (0.2-1.0) mg/dL AST (15-37) IU/L ALT (14-63) IU/L Alkaline Phosphatase (46-116) U/L Troponin I (0.000-0.056) ng/mL Total Protein (6.4-8.2) g/dL Albumin (3.4-5.0) g/dL Globulin (2.6-4.0) g/dL Albumin/Globulin Ratio (0.9-1.6) Lipase (73-393) U/L Urine Color Urine Appearance Urine pH (5.0-8.0) Ur Specific [place] (1.001-1.035) Urine Protein (NEGATIVE) mg/dL Urine Glucose (UA) (NEGATIVE) mg/dL Urine Ketones (NEGATIVE) mg/dL Urine Occult Blood (NEGATIVE) Urine Nitrite (NEGATIVE) Urine Bilirubin (NEGATIVE) Urine Urobilinogen (<2.0) EU/dL Ur Leukocyte Esterase (NEGATIVE) Urine RBC (0-2/HPF) Urine WBC (0-5/HPF) Ur Epithelial Cells (NONE-FEW) Urine Bacteria (NEGATIVE) Ketones (NEG) SARS-CoV-2 RNA (ABBIE) (NEGATIVE) Blood Type Antibody Screen 06/10/20 06/10/20 06/10/20 Range/Units 04:13 05:07 06:10 WBC (4.0-11.0) K/uL RBC (4.50-5.90) M/uL Hgb (13.0-17.0) g/dL Hct (38.0-50.0) % MCV (80.0-98.0) fL MCH (27.0-32.0) pg MCHC (31.0-37.0) g/dL RDW Std Deviation (28.0-62.0) fl RDW Coeff of Charles (11.0-15.0) % Plt Count (150-400) K/uL MPV (7.40-12.00) fL Neut % (Auto) (48.0-80.0) % Lymph % (Auto) (16.0-40.0) % [place] % (Auto) (0.0-15.0) % Eos % (Auto) (0.0-7.0) % Baso % (Auto) (0.0-1.5) % Neut # (Auto) (1.4-5.7) K/uL Lymph # (Auto) (0.6-2.4) K/uL [place] # (Auto) (0.0-0.8) K/uL Eos # (Auto) (0.0-0.7) K/uL Baso # (Auto) (0.0-0.1) K/uL Add Manual Diff Neutrophils % (Manual) (48.0-80.0) % Lymphocytes % (Manual) (16.0-40.0) % Monocytes % (Manual) (0.0-15.0) % Nucleated RBC % /100WBC Absolute Seg Neuts (1.4-5.7) Lymphocytes # (Manual) (0.6-2.4) Monocytes # (Manual) (0.0-0.8) Nucleated RBCs # K/uL INR APTT (18.6-31.3) SEC ABG pH (7.35-7.45) ABG pCO2 (35-45) mmHG ABG pO2 (75-100) mmHG ABG HCO3 (22-26) mEq/L ABG Total CO2 ABG Base Excess (-2.0-2.0) Lactate (0.20-2.00) mmol/L Sodium 143 (136-148) mmol/L Potassium 4.1 (3.5-5.1) mmol/L Chloride 110 H (98-107) mmol/L Carbon Dioxide 14.8 L (21.0-32.0) mmol/L BUN 15 (7.0-18.0) mg/dL Creatinine 1.6 H (0.8-1.3) mg/dL Est Cr Clr Drug Dosing TNP Estimated GFR (MDRD) 45.1 ml/min Glucose 258 H (74-106) mg/dL POC Glucose 215 H 231 H (60-110) mg/dL Calcium 8.3 L (8.5-10.1) mg/dL Total Bilirubin (0.2-1.0) mg/dL AST (15-37) IU/L ALT (14-63) IU/L Alkaline Phosphatase (46-116) U/L Troponin I (0.000-0.056) ng/mL Total Protein (6.4-8.2) g/dL Albumin (3.4-5.0) g/dL Globulin (2.6-4.0) g/dL Albumin/Globulin Ratio (0.9-1.6) Lipase (73-393) U/L Urine Color Urine Appearance Urine pH (5.0-8.0) Ur Specific [place] (1.001-1.035) Urine Protein (NEGATIVE) mg/dL Urine Glucose (UA) (NEGATIVE) mg/dL Urine Ketones (NEGATIVE) mg/dL Urine Occult Blood (NEGATIVE) Urine Nitrite (NEGATIVE) Urine Bilirubin (NEGATIVE) Urine Urobilinogen (<2.0) EU/dL Ur Leukocyte Esterase (NEGATIVE) Urine RBC (0-2/HPF) Urine WBC (0-5/HPF) Ur Epithelial Cells (NONE-FEW) Urine Bacteria (NEGATIVE) Ketones (NEG) SARS-CoV-2 RNA (ABBIE) (NEGATIVE) Blood Type Antibody Screen 06/10/20 06/10/20 06/10/20 Range/Units 06:12 07:05 08:18 WBC (4.0-11.0) K/uL RBC (4.50-5.90) M/uL Hgb (13.0-17.0) g/dL Hct (38.0-50.0) % MCV (80.0-98.0) fL MCH (27.0-32.0) pg MCHC (31.0-37.0) g/dL RDW Std Deviation (28.0-62.0) fl RDW Coeff of Charles (11.0-15.0) % Plt Count (150-400) K/uL MPV (7.40-12.00) fL Neut % (Auto) (48.0-80.0) % Lymph % (Auto) (16.0-40.0) % [place] % (Auto) (0.0-15.0) % Eos % (Auto) (0.0-7.0) % Baso % (Auto) (0.0-1.5) % Neut # (Auto) (1.4-5.7) K/uL Lymph # (Auto) (0.6-2.4) K/uL [place] # (Auto) (0.0-0.8) K/uL Eos # (Auto) (0.0-0.7) K/uL Baso # (Auto) (0.0-0.1) K/uL Add Manual Diff Neutrophils % (Manual) (48.0-80.0) % Lymphocytes % (Manual) (16.0-40.0) % Monocytes % (Manual) (0.0-15.0) % Nucleated RBC % /100WBC Absolute Seg Neuts (1.4-5.7) Lymphocytes # (Manual) (0.6-2.4) Monocytes # (Manual) (0.0-0.8) Nucleated RBCs # K/uL INR APTT (18.6-31.3) SEC ABG pH (7.35-7.45) ABG pCO2 (35-45) mmHG ABG pO2 (75-100) mmHG ABG HCO3 (22-26) mEq/L ABG Total CO2 ABG Base Excess (-2.0-2.0) Lactate (0.20-2.00) mmol/L Sodium (136-148) mmol/L Potassium (3.5-5.1) mmol/L Chloride (98-107) mmol/L Carbon Dioxide (21.0-32.0) mmol/L BUN (7.0-18.0) mg/dL Creatinine (0.8-1.3) mg/dL Est Cr Clr Drug Dosing Estimated GFR (MDRD) ml/min Glucose (74-106) mg/dL POC Glucose 217 H 233 H 209 H (60-110) mg/dL Calcium (8.5-10.1) mg/dL Total Bilirubin (0.2-1.0) mg/dL AST (15-37) IU/L ALT (14-63) IU/L Alkaline Phosphatase (46-116) U/L Troponin I (0.000-0.056) ng/mL Total Protein (6.4-8.2) g/dL Albumin (3.4-5.0) g/dL Globulin (2.6-4.0) g/dL Albumin/Globulin Ratio (0.9-1.6) Lipase (73-393) U/L Urine Color Urine Appearance Urine pH (5.0-8.0) Ur Specific [place] (1.001-1.035) Urine Protein (NEGATIVE) mg/dL Urine Glucose (UA) (NEGATIVE) mg/dL Urine Ketones (NEGATIVE) mg/dL Urine Occult Blood (NEGATIVE) Urine Nitrite (NEGATIVE) Urine Bilirubin (NEGATIVE) Urine Urobilinogen (<2.0) EU/dL Ur Leukocyte Esterase (NEGATIVE) Urine RBC (0-2/HPF) Urine WBC (0-5/HPF) Ur Epithelial Cells (NONE-FEW) Urine Bacteria (NEGATIVE) Ketones (NEG) SARS-CoV-2 RNA (ABBIE) (NEGATIVE) Blood Type Antibody Screen 06/10/20 06/10/20 06/10/20 Range/Units 09:09 10:06 10:06 WBC (4.0-11.0) K/uL RBC (4.50-5.90) M/uL Hgb (13.0-17.0) g/dL Hct (38.0-50.0) % MCV (80.0-98.0) fL MCH (27.0-32.0) pg MCHC (31.0-37.0) g/dL RDW Std Deviation (28.0-62.0) fl RDW Coeff of Charles (11.0-15.0) % Plt Count (150-400) K/uL MPV (7.40-12.00) fL Neut % (Auto) (48.0-80.0) % Lymph % (Auto) (16.0-40.0) % [place] % (Auto) (0.0-15.0) % Eos % (Auto) (0.0-7.0) % Baso % (Auto) (0.0-1.5) % Neut # (Auto) (1.4-5.7) K/uL Lymph # (Auto) (0.6-2.4) K/uL [place] # (Auto) (0.0-0.8) K/uL Eos # (Auto) (0.0-0.7) K/uL Baso # (Auto) (0.0-0.1) K/uL Add Manual Diff Neutrophils % (Manual) (48.0-80.0) % Lymphocytes % (Manual) (16.0-40.0) % Monocytes % (Manual) (0.0-15.0) % Nucleated RBC % /100WBC Absolute Seg Neuts (1.4-5.7) Lymphocytes # (Manual) (0.6-2.4) Monocytes # (Manual) (0.0-0.8) Nucleated RBCs # K/uL INR APTT (18.6-31.3) SEC ABG pH (7.35-7.45) ABG pCO2 (35-45) mmHG ABG pO2 (75-100) mmHG ABG HCO3 (22-26) mEq/L ABG Total CO2 ABG Base Excess (-2.0-2.0) Lactate (0.20-2.00) mmol/L Sodium 142 (136-148) mmol/L Potassium 3.9 (3.5-5.1) mmol/L Chloride 108 H (98-107) mmol/L Carbon Dioxide 16.3 L (21.0-32.0) mmol/L BUN 13 (7.0-18.0) mg/dL Creatinine 1.5 H (0.8-1.3) mg/dL Est Cr Clr Drug Dosing TNP Estimated GFR (MDRD) 48.6 ml/min Glucose 251 H (74-106) mg/dL POC Glucose 207 H 232 H (60-110) mg/dL Calcium 8.2 L (8.5-10.1) mg/dL Total Bilirubin (0.2-1.0) mg/dL AST (15-37) IU/L ALT (14-63) IU/L Alkaline Phosphatase (46-116) U/L Troponin I (0.000-0.056) ng/mL Total Protein (6.4-8.2) g/dL Albumin (3.4-5.0) g/dL Globulin (2.6-4.0) g/dL Albumin/Globulin Ratio (0.9-1.6) Lipase (73-393) U/L Urine Color Urine Appearance Urine pH (5.0-8.0) Ur Specific [place] (1.001-1.035) Urine Protein (NEGATIVE) mg/dL Urine Glucose (UA) (NEGATIVE) mg/dL Urine Ketones (NEGATIVE) mg/dL Urine Occult Blood (NEGATIVE) Urine Nitrite (NEGATIVE) Urine Bilirubin (NEGATIVE) Urine Urobilinogen (<2.0) EU/dL Ur Leukocyte Esterase (NEGATIVE) Urine RBC (0-2/HPF) Urine WBC (0-5/HPF) Ur Epithelial Cells (NONE-FEW) Urine Bacteria (NEGATIVE) Ketones (NEG) SARS-CoV-2 RNA (ABBIE) (NEGATIVE) Blood Type Antibody Screen Result Diagrams: 06/10/20 02:04 06/10/20 10:06 Sepsis Event Note - Evaluation Sepsis Screening Result: Sepsis Risk - Focused Exam Vital Signs: Vital Signs Temp Resp BP Pulse Ox 06/10/20 10:00 16 141/84 H 95 06/10/20 09:00 21 H 135/68 96 06/10/20 08:00 36.9 C 13 149/84 H 97 06/10/20 07:00 22 H 123/70 95 06/10/20 06:00 19 136/62 96 06/10/20 05:00 21 H 135/73 96 06/10/20 04:00 37.3 C 23 H 130/66 96 06/10/20 03:00 22 H 124/72 95 06/10/20 02:00 21 H 128/66 95 06/10/20 01:00 22 H 147/74 H 96 06/10/20 00:00 36.8 C 20 132/71 96 - Problem List Review Problem List Initiated/Reviewed/Updated: Yes - My Orders Last 24 Hours: My Active Orders 06/09/20 Dinner NPO [Nothing Per Oral Diet] [DIET] 06/09/20 20:00 Accu Check [Blood Glucose Check, Bedside] [RC] Q1H 06/09/20 20:06 Ondansetron [Zofran] 4 mg IVPUSH Q4H PRN 06/09/20 20:40 Insulin Regular in 0.9 % NACL [Myxredlin in NS 100 UNIT/100 ML] 100 ml IV TIT RATE 06/09/20 21:00 Lactated Ringers [Ringers, Lactated] 1,000 ml IV ASDIRECTED 06/09/20 21:46 Guaiac [OCCULT BLOOD DIAGNOSTIC] [OP] Routine 06/09/20 22:08 Metoclopramide [Reglan] 5 mg IVPUSH Q6H PRN 06/10/20 04:00 Pantoprazole [ProTONIX IV] 40 mg Sodium Chloride 0.9% [Normal Saline] 10 ml IV Q12H 06/10/20 14:00 BMP [BASIC METABOLIC PANEL,BMP] [CHEM] Q4H - Plan Plan:: 54 yo male admitted for diabetic ketoacidosis. DKA: continue insulin drip and IV fluids, trend BMP Coffee ground emesis: on protonix, hold plavix, Hgb stable at 14.9 HX of CAD: resume metoprolol
[2020-06-10] MEDS: Metoprolol Tartrate 25 MG Tab PO SCH ×2 (11:50→21:07)
[2020-06-10 14:40] LABS: BLOOD UREA NITROGEN,BUN 11 mg/dL (7.0-18.0); CHLORIDE,CL 109 mmol/L (98-107); GLUCOSE RANDOM 226 mg/dL (74-106); POTASSIUM,K 3.5 mmol/L (3.5-5.1); SODIUM,NA 143 mmol/L (136-148)
[2020-06-10 18:27] LABS: BLOOD UREA NITROGEN,BUN 10 mg/dL (7.0-18.0); CARBON DIOXIDE,CO2 23.8 mmol/L (21.0-32.0); CHLORIDE,CL 108 mmol/L (98-107); GLUCOSE RANDOM 213 mg/dL (74-106); POTASSIUM,K 3.5 mmol/L (3.5-5.1); SODIUM,NA 142 mmol/L (136-148)
--- NOTE | 2020-06-10 23:19 | PN ---
[facility] Physician - Brief Progress [id number]/03/2021 23:17ACHI [facility] almaTae, MICHAEL - SINDI (TREMAINE) - EVELIO FELIXDate of Service 06/10/2020 23:17HPI/Events of Note Discussed with RN: [facility]IRAG closed .Plan: transition to SSI q6 hr, follow glu, switch fluids to NS unt il tolerating diet.Interventions Minor-Communication with other healthcare providers and/or familyEle ctronically Signed by: RAJENDRA HARRISON () on 06/10/2020 23:18
[2020-06-10] MEDS: Sodium Chloride 0.9% 1,000 ML IV SCH (23:30)
[2020-06-11] MEDS: Insulin Aspart 100 Units/ML 3 ML Pen SUBCUT SCH ×2 (00:06→06:17)
[2020-06-11 01:09] LABS: BLOOD UREA NITROGEN,BUN 7 mg/dL (7.0-18.0); CARBON DIOXIDE,CO2 22.5 mmol/L (21.0-32.0); CHLORIDE,CL 107 mmol/L (98-107); GLUCOSE RANDOM 263 mg/dL (74-106); POTASSIUM,K 3.2 mmol/L (3.5-5.1); SODIUM,NA 141 mmol/L (136-148)
[2020-06-11] MEDS ORDERED: Potassium Chloride Riders 40 MEQ in Premix Bag 1 BAG IV ONE (01:30)
[2020-06-11] MEDS: Metoclopramide 10 MG/2 ML SDV IVPUSH PRN (01:50)
[2020-06-11] MEDS: Pantoprazole 40 MG in Sodium Chloride 0.9% 10 ML IV SCH ×2 (03:57→16:58)
[2020-06-11 06:58] LABS: POTASSIUM,K 4.3 mmol/L (3.5-5.1)
[2020-06-11] MEDS ORDERED: Magnesium Sulfate/Water 2 GM/50 ML Premix Bag IV ONE (07:07)
[2020-06-11] MEDS ORDERED: Phosphorus #1 250 MG Tab PO ONE (07:07)
[2020-06-11] MEDS ORDERED: Magnesium Sulfate/Water 2 GM/50 ML BAG IV ONE (07:15)
[2020-06-11] MEDS: Sodium Chloride 0.9% 1,000 ML IV SCH ×3 (07:36→23:00)
--- NOTE | 2020-06-11 07:54 | PCM.PN ---
- General Info Date of Service: 06/11/20 - Review of Systems Systems Review Comment:: patient feeling alot better, has not vomiting since last night. appetite is still poor. - Patient Data Vitals - Most Recent: Last Vital Signs Temp 36.9 C 06/11/20 04:00 Pulse 98 06/10/20 21:07 Resp 14 06/11/20 07:00 BP 136/73 06/11/20 07:00 Pulse Ox 93 L 06/11/20 07:00 Weight - Most Recent: 71.123 kg I&O - Last 24 Hours: Intake & Output 06/10/20 06/11/20 06/11/20 22:59 06:59 14:59 Intake Total 50 2565 Output Total 510 900 Balance -460 1665 Lab Results Last 24 Hours: Laboratory Results - last 24 hr 06/10/20 06/10/20 06/10/20 Range/Units 08:18 09:09 10:06 WBC (4.0-11.0) K/uL RBC (4.50-5.90) M/uL Hgb (13.0-17.0) g/dL Hct (38.0-50.0) % MCV (80.0-98.0) fL MCH (27.0-32.0) pg MCHC (31.0-37.0) g/dL RDW Std Deviation (28.0-62.0) fl RDW Coeff of Charles (11.0-15.0) % Plt Count (150-400) K/uL MPV (7.40-12.00) fL Neut % (Auto) (48.0-80.0) % Lymph % (Auto) (16.0-40.0) % Trigg % (Auto) (0.0-15.0) % Eos % (Auto) (0.0-7.0) % Baso % (Auto) (0.0-1.5) % Neut # (Auto) (1.4-5.7) K/uL Lymph # (Auto) (0.6-2.4) K/uL Trigg # (Auto) (0.0-0.8) K/uL Eos # (Auto) (0.0-0.7) K/uL Baso # (Auto) (0.0-0.1) K/uL Sodium 142 (136-148) mmol/L Potassium 3.9 (3.5-5.1) mmol/L Chloride 108 H (98-107) mmol/L Carbon Dioxide 16.3 L (21.0-32.0) mmol/L BUN 13 (7.0-18.0) mg/dL Creatinine 1.5 H (0.8-1.3) mg/dL Est Cr Clr Drug Dosing TNP Estimated GFR (MDRD) 48.6 ml/min Glucose 251 H (74-106) mg/dL POC Glucose 209 H 207 H (60-110) mg/dL Calcium 8.2 L (8.5-10.1) mg/dL Phosphorus (2.6-4.7) mg/dL Magnesium (1.8-2.4) mg/dL 06/10/20 06/10/20 06/10/20 Range/Units 10:06 11:06 12:17 WBC (4.0-11.0) K/uL RBC (4.50-5.90) M/uL Hgb (13.0-17.0) g/dL Hct (38.0-50.0) % MCV (80.0-98.0) fL MCH (27.0-32.0) pg MCHC (31.0-37.0) g/dL RDW Std Deviation (28.0-62.0) fl RDW Coeff of Charles (11.0-15.0) % Plt Count (150-400) K/uL MPV (7.40-12.00) fL Neut % (Auto) (48.0-80.0) % Lymph % (Auto) (16.0-40.0) % Trigg % (Auto) (0.0-15.0) % Eos % (Auto) (0.0-7.0) % Baso % (Auto) (0.0-1.5) % Neut # (Auto) (1.4-5.7) K/uL Lymph # (Auto) (0.6-2.4) K/uL Trigg # (Auto) (0.0-0.8) K/uL Eos # (Auto) (0.0-0.7) K/uL Baso # (Auto) (0.0-0.1) K/uL Sodium (136-148) mmol/L Potassium (3.5-5.1) mmol/L Chloride (98-107) mmol/L Carbon Dioxide (21.0-32.0) mmol/L BUN (7.0-18.0) mg/dL Creatinine (0.8-1.3) mg/dL Est Cr Clr Drug Dosing Estimated GFR (MDRD) ml/min Glucose (74-106) mg/dL POC Glucose 232 H 223 H 218 H (60-110) mg/dL Calcium (8.5-10.1) mg/dL Phosphorus (2.6-4.7) mg/dL Magnesium (1.8-2.4) mg/dL 06/10/20 06/10/20 06/10/20 Range/Units 13:13 14:14 14:15 WBC (4.0-11.0) K/uL RBC (4.50-5.90) M/uL Hgb (13.0-17.0) g/dL Hct (38.0-50.0) % MCV (80.0-98.0) fL MCH (27.0-32.0) pg MCHC (31.0-37.0) g/dL RDW Std Deviation (28.0-62.0) fl RDW Coeff of Charles (11.0-15.0) % Plt Count (150-400) K/uL MPV (7.40-12.00) fL Neut % (Auto) (48.0-80.0) % Lymph % (Auto) (16.0-40.0) % Trigg % (Auto) (0.0-15.0) % Eos % (Auto) (0.0-7.0) % Baso % (Auto) (0.0-1.5) % Neut # (Auto) (1.4-5.7) K/uL Lymph # (Auto) (0.6-2.4) K/uL Trigg # (Auto) (0.0-0.8) K/uL Eos # (Auto) (0.0-0.7) K/uL Baso # (Auto) (0.0-0.1) K/uL Sodium 143 (136-148) mmol/L Potassium 3.5 (3.5-5.1) mmol/L Chloride 109 H (98-107) mmol/L Carbon Dioxide 21.0 (21.0-32.0) mmol/L BUN 11 (7.0-18.0) mg/dL Creatinine 1.4 H (0.8-1.3) mg/dL Est Cr Clr Drug Dosing TNP Estimated GFR (MDRD) 52.6 ml/min Glucose 226 H (74-106) mg/dL POC Glucose 234 H 205 H (60-110) mg/dL Calcium 8.3 L (8.5-10.1) mg/dL Phosphorus (2.6-4.7) mg/dL Magnesium (1.8-2.4) mg/dL 06/10/20 06/10/20 06/10/20 Range/Units 15:07 16:05 17:10 WBC (4.0-11.0) K/uL RBC (4.50-5.90) M/uL Hgb (13.0-17.0) g/dL Hct (38.0-50.0) % MCV (80.0-98.0) fL MCH (27.0-32.0) pg MCHC (31.0-37.0) g/dL RDW Std Deviation (28.0-62.0) fl RDW Coeff of Charles (11.0-15.0) % Plt Count (150-400) K/uL MPV (7.40-12.00) fL Neut % (Auto) (48.0-80.0) % Lymph % (Auto) (16.0-40.0) % Trigg % (Auto) (0.0-15.0) % Eos % (Auto) (0.0-7.0) % Baso % (Auto) (0.0-1.5) % Neut # (Auto) (1.4-5.7) K/uL Lymph # (Auto) (0.6-2.4) K/uL Trigg # (Auto) (0.0-0.8) K/uL Eos # (Auto) (0.0-0.7) K/uL Baso # (Auto) (0.0-0.1) K/uL Sodium (136-148) mmol/L Potassium (3.5-5.1) mmol/L Chloride (98-107) mmol/L Carbon Dioxide (21.0-32.0) mmol/L BUN (7.0-18.0) mg/dL Creatinine (0.8-1.3) mg/dL Est Cr Clr Drug Dosing Estimated GFR (MDRD) ml/min Glucose (74-106) mg/dL POC Glucose 215 H 202 H 218 H (60-110) mg/dL Calcium (8.5-10.1) mg/dL Phosphorus (2.6-4.7) mg/dL Magnesium (1.8-2.4) mg/dL 06/10/20 06/10/20 06/10/20 Range/Units 18:07 18:08 19:05 WBC (4.0-11.0) K/uL RBC (4.50-5.90) M/uL Hgb (13.0-17.0) g/dL Hct (38.0-50.0) % MCV (80.0-98.0) fL MCH (27.0-32.0) pg MCHC (31.0-37.0) g/dL RDW Std Deviation (28.0-62.0) fl RDW Coeff of Charles (11.0-15.0) % Plt Count (150-400) K/uL MPV (7.40-12.00) fL Neut % (Auto) (48.0-80.0) % Lymph % (Auto) (16.0-40.0) % Trigg % (Auto) (0.0-15.0) % Eos % (Auto) (0.0-7.0) % Baso % (Auto) (0.0-1.5) % Neut # (Auto) (1.4-5.7) K/uL Lymph # (Auto) (0.6-2.4) K/uL Trigg # (Auto) (0.0-0.8) K/uL Eos # (Auto) (0.0-0.7) K/uL Baso # (Auto) (0.0-0.1) K/uL Sodium 142 (136-148) mmol/L Potassium 3.5 (3.5-5.1) mmol/L Chloride 108 H (98-107) mmol/L Carbon Dioxide 23.8 (21.0-32.0) mmol/L BUN 10 (7.0-18.0) mg/dL Creatinine 1.3 (0.8-1.3) mg/dL Est Cr Clr Drug Dosing TNP Estimated GFR (MDRD) 57.3 ml/min Glucose 213 H (74-106) mg/dL POC Glucose 192 H 208 H (60-110) mg/dL Calcium 8.3 L (8.5-10.1) mg/dL Phosphorus (2.6-4.7) mg/dL Magnesium (1.8-2.4) mg/dL 06/10/20 06/10/20 06/10/20 Range/Units 20:03 21:08 23:03 WBC (4.0-11.0) K/uL RBC (4.50-5.90) M/uL Hgb (13.0-17.0) g/dL Hct (38.0-50.0) % MCV (80.0-98.0) fL MCH (27.0-32.0) pg MCHC (31.0-37.0) g/dL RDW Std Deviation (28.0-62.0) fl RDW Coeff of Charels (11.0-15.0) % Plt Count (150-400) K/uL MPV (7.40-12.00) fL Neut % (Auto) (48.0-80.0) % Lymph % (Auto) (16.0-40.0) % Trigg % (Auto) (0.0-15.0) % Eos % (Auto) (0.0-7.0) % Baso % (Auto) (0.0-1.5) % Neut # (Auto) (1.4-5.7) K/uL Lymph # (Auto) (0.6-2.4) K/uL Trigg # (Auto) (0.0-0.8) K/uL Eos # (Auto) (0.0-0.7) K/uL Baso # (Auto) (0.0-0.1) K/uL Sodium (136-148) mmol/L Potassium (3.5-5.1) mmol/L Chloride (98-107) mmol/L Carbon Dioxide (21.0-32.0) mmol/L BUN (7.0-18.0) mg/dL Creatinine (0.8-1.3) mg/dL Est Cr Clr Drug Dosing Estimated GFR (MDRD) ml/min Glucose (74-106) mg/dL POC Glucose 192 H 217 H 195 H (60-110) mg/dL Calcium (8.5-10.1) mg/dL Phosphorus (2.6-4.7) mg/dL Magnesium (1.8-2.4) mg/dL 06/11/20 06/11/20 06/11/20 Range/Units 00:01 00:18 05:53 WBC (4.0-11.0) K/uL RBC (4.50-5.90) M/uL Hgb (13.0-17.0) g/dL Hct (38.0-50.0) % MCV (80.0-98.0) fL MCH (27.0-32.0) pg MCHC (31.0-37.0) g/dL RDW Std Deviation (28.0-62.0) fl RDW Coeff of Charles (11.0-15.0) % Plt Count (150-400) K/uL MPV (7.40-12.00) fL Neut % (Auto) (48.0-80.0) % Lymph % (Auto) (16.0-40.0) % Trigg % (Auto) (0.0-15.0) % Eos % (Auto) (0.0-7.0) % Baso % (Auto) (0.0-1.5) % Neut # (Auto) (1.4-5.7) K/uL Lymph # (Auto) (0.6-2.4) K/uL Trigg # (Auto) (0.0-0.8) K/uL Eos # (Auto) (0.0-0.7) K/uL Baso # (Auto) (0.0-0.1) K/uL Sodium 141 (136-148) mmol/L Potassium 3.2 L (3.5-5.1) mmol/L Chloride 107 (98-107) mmol/L Carbon Dioxide 22.5 (21.0-32.0) mmol/L BUN 7 (7.0-18.0) mg/dL Creatinine 1.2 (0.8-1.3) mg/dL Est Cr Clr Drug Dosing TNP Estimated GFR (MDRD) > 60.0 ml/min Glucose 263 H (74-106) mg/dL POC Glucose 216 H 429 H (60-110) mg/dL Calcium 8.3 L (8.5-10.1) mg/dL Phosphorus (2.6-4.7) mg/dL Magnesium (1.8-2.4) mg/dL 06/11/20 06/11/20 06/11/20 Range/Units 06:20 06:20 06:20 WBC 9.61 (4.0-11.0) K/uL RBC 4.08 L (4.50-5.90) M/uL Hgb 13.0 (13.0-17.0) g/dL Hct 37.0 L (38.0-50.0) % MCV 90.7 (80.0-98.0) fL MCH 31.9 (27.0-32.0) pg MCHC 35.1 (31.0-37.0) g/dL RDW Std Deviation 41.5 (28.0-62.0) fl RDW Coeff of Charles 13 (11.0-15.0) % Plt Count 167 (150-400) K/uL MPV 9.80 (7.40-12.00) fL Neut % (Auto) 82.9 H (48.0-80.0) % Lymph % (Auto) 8.8 L (16.0-40.0) % Trigg % (Auto) 8.1 (0.0-15.0) % Eos % (Auto) 0.0 (0.0-7.0) % Baso % (Auto) 0.2 (0.0-1.5) % Neut # (Auto) 8.0 H (1.4-5.7) K/uL Lymph # (Auto) 0.9 (0.6-2.4) K/uL Trigg # (Auto) 0.8 (0.0-0.8) K/uL Eos # (Auto) 0.0 (0.0-0.7) K/uL Baso # (Auto) 0.0 (0.0-0.1) K/uL Sodium 136 (136-148) mmol/L Potassium 4.3 (3.5-5.1) mmol/L Chloride 101 (98-107) mmol/L Carbon Dioxide 19.0 L (21.0-32.0) mmol/L BUN 9 (7.0-18.0) mg/dL Creatinine 1.3 (0.8-1.3) mg/dL Est Cr Clr Drug Dosing 64.59 Estimated GFR (MDRD) 57.3 ml/min Glucose 511 H* (74-106) mg/dL POC Glucose (60-110) mg/dL Calcium 8.0 L (8.5-10.1) mg/dL Phosphorus 2.3 L (2.6-4.7) mg/dL Magnesium 1.7 L (1.8-2.4) mg/dL Med Orders - Current: Current Medications Dextrose/Water (50% Dextrose In Water 50 Ml Syringe) 50 ml IV ASDIRECTED PRN PRN Reason: Hypoglycemia Glucagon (Glucagon,Human Recombinant 1 Mg Vial) 1 mg IM ASDIRECTED PRN PRN Reason: Hypoglycemia Sodium Chloride (Normal Saline) 1,000 mls @ 999 mls/hr IV ASDIRECTED [facility] Last Admin: 06/09/20 17:12 Dose: 999 mls/hr Documented by: Pantoprazole Sodium 40 mg/ (Sodium Chloride) 10 mls @ 300 mls/hr IV Q12H [facility] Last Admin: 06/11/20 03:57 Dose: 300 mls/hr Documented by: Sodium Chloride (Normal Saline) 1,000 mls @ 125 mls/hr IV ASDIRECTED [facility] Last Admin: 06/11/20 07:36 Dose: 125 mls/hr Documented by: Magnesium Sulfate (Magnesium Sulfate In Water 2 Gm/50 Ml) 2 gm in 50 mls @ 50 mls/hr IV ONETIME ONE Stop: 06/11/20 08:14 Last Admin: 06/11/20 07:45 Dose: 50 mls/hr Documented by: Insulin Human Regular 100 unit (/ Sodium Chloride) 100 mls @ 7 mls/hr IV TITRATE [facility]; Protocol Metoclopramide HCl (Metoclopramide 10 Mg/2 Ml Sdv) 5 mg IVPUSH Q6H PRN PRN Reason: Nausea Last Admin: 06/11/20 01:50 Dose: 5 mg Documented by: Metoprolol Tartrate (Metoprolol Tartrate 25 Mg Tab) 25 mg PO BID [facility] Last Admin: 06/10/20 21:07 Dose: 25 mg Documented by: Ondansetron HCl (Ondansetron 4 Mg/2 Ml Sdv) 4 mg IVPUSH Q4H PRN PRN Reason: Nausea/Vomiting Last Admin: 06/10/20 21:01 Dose: 4 mg Documented by: Sodium Chloride (Sodium Chloride 0.9% 10 Ml Syringe) 10 ml FLUSH ASDIRECTED PRN PRN Reason: Keep Vein Open Last Admin: 06/09/20 20:13 Dose: 10 ml Documented by: Sodium Chloride (Sodium Chloride 0.9% 2.5 Ml Syringe) 2.5 ml FLUSH ASDIRECTED PRN PRN Reason: Keep Vein Open Discontinued Medications Dextrose/Water (50% Dextrose In Water 50 Ml Syringe) 50 ml IV ASDIRECTED PRN PRN Reason: Hypoglycemia Dextrose/Water (50% Dextrose In Water 50 Ml Syringe) 50 ml IV ASDIRECTED PRN PRN Reason: Hypoglycemia Glucagon (Glucagon,Human Recombinant 1 Mg Vial) 1 mg IM ASDIRECTED PRN PRN Reason: Hypoglycemia Glucagon (Glucagon,Human Recombinant 1 Mg Vial) 1 mg IM ASDIRECTED PRN PRN Reason: Hypoglycemia Pantoprazole Sodium 40 mg/ (Sodium Chloride) 10 mls @ 300 mls/hr IV NOW ONE Stop: 06/09/20 15:43 Last Admin: 06/09/20 16:17 Dose: 300 mls/hr Documented by: Sodium Chloride (Normal Saline) 1,000 mls @ 1,000 mls/hr IV .Bolus ONE Stop: 06/09/20 16:43 Last Admin: 06/09/20 16:17 Dose: 1,000 mls/hr Documented by: Lactated Ringer's (Ringers, Lactated) 1,000 mls @ 150 mls/hr IV ASDIRECTED [facility] Last Infusion: 06/09/20 20:15 Dose: 0 mls/hr Documented by: Insulin Human Regular 100 unit (/ Sodium Chloride) 100 mls @ 7 mls/hr IV TITRATE [facility]; Protocol Lactated Ringer's (Ringers, Lactated) 1,000 mls @ 999 mls/hr IV ONETIME ONE Stop: 06/09/20 21:00 Last Admin: 06/09/20 20:00 Dose: 999 mls/hr Documented by: Lactated Ringer's (Ringers, Lactated) 1,000 mls @ 200 mls/hr IV ASDIRECTED [facility] Last Infusion: 06/10/20 00:09 Dose: 0 mls/hr Documented by: Insulin Regular in 0.9 % NACL (Myxredlin In Ns 100 Unit/100 Ml) 100 mls @ 7 mls/hr IV TITRATE [facility]; Protocol Last Titration: 06/10/20 23:34 Dose: 0 unit/hr, 0 mls/hr Documented by: Dextrose/Sodium Chloride (Dextrose 5%-1/2 Ns) 1,000 mls @ 150 mls/hr IV ASDIRECTED [facility] Last Infusion: 06/10/20 23:21 Dose: 0 mls/hr Documented by: Potassium Chloride 40 meq/ (Premix) 100 mls @ 25 mls/hr IV ONETIME ONE Stop: 06/11/20 05:29 Last Admin: 06/11/20 01:45 Dose: 25 mls/hr Documented by: Insulin Aspart (Insulin Aspart 100 Units/Ml 3 Ml Pen) 0 unit SUBCUT Q6H [facility]; Protocol Last Admin: 06/11/20 06:17 Dose: Not Given Documented by: Insulin Human Isoph/Insulin Regular (Insulin Nph/Insulin Regular,Human 70-30 100 Units/Ml 10 Ml Vial) 10 unit SUBCUT ONETIME ONE Stop: 06/09/20 15:46 Last Admin: 06/09/20 16:09 Dose: Not Given Documented by: Insulin Human Regular (Insulin Regular, Human 100 Units/Ml 10 Ml Vial) 10 unit IVPUSH ONETIME ONE; Protocol Stop: 06/09/20 16:10 Last Admin: 06/09/20 16:15 Dose: 10 unit Documented by: Insulin Human Regular (Insulin Regular, Human 100 Units/Ml 10 Ml Vial) 10 unit IVPUSH ONETIME ONE; Protocol Stop: 06/09/20 17:07 Last Admin: 06/09/20 17:15 Dose: 10 unit Documented by: Insulin Human Regular (Insulin Regular, Human 100 Units/Ml 10 Ml Vial) 10 unit IVPUSH ONETIME ONE; Protocol Stop: 06/09/20 17:09 Last Admin: 06/09/20 17:17 Dose: Not Given Documented by: Ondansetron HCl (Ondansetron 4 Mg/2 Ml Sdv) 4 mg IVPUSH ONETIME ONE Stop: 06/09/20 15:43 Last Admin: 06/09/20 16:17 Dose: 4 mg Documented by: Ondansetron HCl (Ondansetron 4 Mg/2 Ml Sdv) Confirm Administered Dose 4 mg .R SARAHIE .STK-MED ONE Stop: 06/09/20 20:14 Last Admin: 06/09/20 20:16 Dose: Not Given Documented by: Sodium Phosphate (Phosphorus #1 250 Mg Tab) 250 mg PO ONETIME ONE Stop: 06/11/20 07:08 - Exam General: Alert, Oriented Neck: Supple Lungs: Clear to Auscultation, Normal Respiratory Effort Cardiovascular: Regular Rate, Regular Rhythm GI/Abdominal Exam: Soft, Non-Tender, No Distention Extremities: Non-Tender, No Pedal Edema Skin: Warm, Dry, Intact Neurological: No New Focal Deficit - Patient Data Lab Results Last 24 hrs: Laboratory Results - last 24 hr 06/10/20 06/10/20 06/10/20 Range/Units 08:18 09:09 10:06 WBC (4.0-11.0) K/uL RBC (4.50-5.90) M/uL Hgb (13.0-17.0) g/dL Hct (38.0-50.0) % MCV (80.0-98.0) fL MCH (27.0-32.0) pg MCHC (31.0-37.0) g/dL RDW Std Deviation (28.0-62.0) fl RDW Coeff of Charles (11.0-15.0) % Plt Count (150-400) K/uL MPV (7.40-12.00) fL Neut % (Auto) (48.0-80.0) % Lymph % (Auto) (16.0-40.0) % Trigg % (Auto) (0.0-15.0) % Eos % (Auto) (0.0-7.0) % Baso % (Auto) (0.0-1.5) % Neut # (Auto) (1.4-5.7) K/uL Lymph # (Auto) (0.6-2.4) K/uL Trigg # (Auto) (0.0-0.8) K/uL Eos # (Auto) (0.0-0.7) K/uL Baso # (Auto) (0.0-0.1) K/uL Sodium 142 (136-148) mmol/L Potassium 3.9 (3.5-5.1) mmol/L Chloride 108 H (98-107) mmol/L Carbon Dioxide 16.3 L (21.0-32.0) mmol/L BUN 13 (7.0-18.0) mg/dL Creatinine 1.5 H (0.8-1.3) mg/dL Est Cr Clr Drug Dosing TNP Estimated GFR (MDRD) 48.6 ml/min Glucose 251 H (74-106) mg/dL POC Glucose 209 H 207 H (60-110) mg/dL Calcium 8.2 L (8.5-10.1) mg/dL Phosphorus (2.6-4.7) mg/dL Magnesium (1.8-2.4) mg/dL 06/10/20 06/10/20 06/10/20 Range/Units 10:06 11:06 12:17 WBC (4.0-11.0) K/uL RBC (4.50-5.90) M/uL Hgb (13.0-17.0) g/dL Hct (38.0-50.0) % MCV (80.0-98.0) fL MCH (27.0-32.0) pg MCHC (31.0-37.0) g/dL RDW Std Deviation (28.0-62.0) fl RDW Coeff of Charles (11.0-15.0) % Plt Count (150-400) K/uL MPV (7.40-12.00) fL Neut % (Auto) (48.0-80.0) % Lymph % (Auto) (16.0-40.0) % Trigg % (Auto) (0.0-15.0) % Eos % (Auto) (0.0-7.0) % Baso % (Auto) (0.0-1.5) % Neut # (Auto) (1.4-5.7) K/uL Lymph # (Auto) (0.6-2.4) K/uL Trigg # (Auto) (0.0-0.8) K/uL Eos # (Auto) (0.0-0.7) K/uL Baso # (Auto) (0.0-0.1) K/uL Sodium (136-148) mmol/L Potassium (3.5-5.1) mmol/L Chloride (98-107) mmol/L Carbon Dioxide (21.0-32.0) mmol/L BUN (7.0-18.0) mg/dL Creatinine (0.8-1.3) mg/dL Est Cr Clr Drug Dosing Estimated GFR (MDRD) ml/min Glucose (74-106) mg/dL POC Glucose 232 H 223 H 218 H (60-110) mg/dL Calcium (8.5-10.1) mg/dL Phosphorus (2.6-4.7) mg/dL Magnesium (1.8-2.4) mg/dL 06/10/20 06/10/20 06/10/20 Range/Units 13:13 14:14 14:15 WBC (4.0-11.0) K/uL RBC (4.50-5.90) M/uL Hgb (13.0-17.0) g/dL Hct (38.0-50.0) % MCV (80.0-98.0) fL MCH (27.0-32.0) pg MCHC (31.0-37.0) g/dL RDW Std Deviation (28.0-62.0) fl RDW Coeff of Charles (11.0-15.0) % Plt Count (150-400) K/uL MPV (7.40-12.00) fL Neut % (Auto) (48.0-80.0) % Lymph % (Auto) (16.0-40.0) % Trigg % (Auto) (0.0-15.0) % Eos % (Auto) (0.0-7.0) % Baso % (Auto) (0.0-1.5) % Neut # (Auto) (1.4-5.7) K/uL Lymph # (Auto) (0.6-2.4) K/uL Trigg # (Auto) (0.0-0.8) K/uL Eos # (Auto) (0.0-0.7) K/uL Baso # (Auto) (0.0-0.1) K/uL Sodium 143 (136-148) mmol/L Potassium 3.5 (3.5-5.1) mmol/L Chloride 109 H (98-107) mmol/L Carbon Dioxide 21.0 (21.0-32.0) mmol/L BUN 11 (7.0-18.0) mg/dL Creatinine 1.4 H (0.8-1.3) mg/dL Est Cr Clr Drug Dosing TNP Estimated GFR (MDRD) 52.6 ml/min Glucose 226 H (74-106) mg/dL POC Glucose 234 H 205 H (60-110) mg/dL Calcium 8.3 L (8.5-10.1) mg/dL Phosphorus (2.6-4.7) mg/dL Magnesium (1.8-2.4) mg/dL 06/10/20 06/10/20 06/10/20 Range/Units 15:07 16:05 17:10 WBC (4.0-11.0) K/uL RBC (4.50-5.90) M/uL Hgb (13.0-17.0) g/dL Hct (38.0-50.0) % MCV (80.0-98.0) fL MCH (27.0-32.0) pg MCHC (31.0-37.0) g/dL RDW Std Deviation (28.0-62.0) fl RDW Coeff of Charles (11.0-15.0) % Plt Count (150-400) K/uL MPV (7.40-12.00) fL Neut % (Auto) (48.0-80.0) % Lymph % (Auto) (16.0-40.0) % Trigg % (Auto) (0.0-15.0) % Eos % (Auto) (0.0-7.0) % Baso % (Auto) (0.0-1.5) % Neut # (Auto) (1.4-5.7) K/uL Lymph # (Auto) (0.6-2.4) K/uL Trigg # (Auto) (0.0-0.8) K/uL Eos # (Auto) (0.0-0.7) K/uL Baso # (Auto) (0.0-0.1) K/uL Sodium (136-148) mmol/L Potassium (3.5-5.1) mmol/L Chloride (98-107) mmol/L Carbon Dioxide (21.0-32.0) mmol/L BUN (7.0-18.0) mg/dL Creatinine (0.8-1.3) mg/dL Est Cr Clr Drug Dosing Estimated GFR (MDRD) ml/min Glucose (74-106) mg/dL POC Glucose 215 H 202 H 218 H (60-110) mg/dL Calcium (8.5-10.1) mg/dL Phosphorus (2.6-4.7) mg/dL Magnesium (1.8-2.4) mg/dL 06/10/20 06/10/20 06/10/20 Range/Units 18:07 18:08 19:05 WBC (4.0-11.0) K/uL RBC (4.50-5.90) M/uL Hgb (13.0-17.0) g/dL Hct (38.0-50.0) % MCV (80.0-98.0) fL MCH (27.0-32.0) pg MCHC (31.0-37.0) g/dL RDW Std Deviation (28.0-62.0) fl RDW Coeff of Charles (11.0-15.0) % Plt Count (150-400) K/uL MPV (7.40-12.00) fL Neut % (Auto) (48.0-80.0) % Lymph % (Auto) (16.0-40.0) % Trigg % (Auto) (0.0-15.0) % Eos % (Auto) (0.0-7.0) % Baso % (Auto) (0.0-1.5) % Neut # (Auto) (1.4-5.7) K/uL Lymph # (Auto) (0.6-2.4) K/uL Trigg # (Auto) (0.0-0.8) K/uL Eos # (Auto) (0.0-0.7) K/uL Baso # (Auto) (0.0-0.1) K/uL Sodium 142 (136-148) mmol/L Potassium 3.5 (3.5-5.1) mmol/L Chloride 108 H (98-107) mmol/L Carbon Dioxide 23.8 (21.0-32.0) mmol/L BUN 10 (7.0-18.0) mg/dL Creatinine 1.3 (0.8-1.3) mg/dL Est Cr Clr Drug Dosing TNP Estimated GFR (MDRD) 57.3 ml/min Glucose 213 H (74-106) mg/dL POC Glucose 192 H 208 H (60-110) mg/dL Calcium 8.3 L (8.5-10.1) mg/dL Phosphorus (2.6-4.7) mg/dL Magnesium (1.8-2.4) mg/dL 06/10/20 06/10/20 06/10/20 Range/Units 20:03 21:08 23:03 WBC (4.0-11.0) K/uL RBC (4.50-5.90) M/uL Hgb (13.0-17.0) g/dL Hct (38.0-50.0) % MCV (80.0-98.0) fL MCH (27.0-32.0) pg MCHC (31.0-37.0) g/dL RDW Std Deviation (28.0-62.0) fl RDW Coeff of Charles (11.0-15.0) % Plt Count (150-400) K/uL MPV (7.40-12.00) fL Neut % (Auto) (48.0-80.0) % Lymph % (Auto) (16.0-40.0) % Trigg % (Auto) (0.0-15.0) % Eos % (Auto) (0.0-7.0) % Baso % (Auto) (0.0-1.5) % Neut # (Auto) (1.4-5.7) K/uL Lymph # (Auto) (0.6-2.4) K/uL Trigg # (Auto) (0.0-0.8) K/uL Eos # (Auto) (0.0-0.7) K/uL Baso # (Auto) (0.0-0.1) K/uL Sodium (136-148) mmol/L Potassium (3.5-5.1) mmol/L Chloride (98-107) mmol/L Carbon Dioxide (21.0-32.0) mmol/L BUN (7.0-18.0) mg/dL Creatinine (0.8-1.3) mg/dL Est Cr Clr Drug Dosing Estimated GFR (MDRD) ml/min Glucose (74-106) mg/dL POC Glucose 192 H 217 H 195 H (60-110) mg/dL Calcium (8.5-10.1) mg/dL Phosphorus (2.6-4.7) mg/dL Magnesium (1.8-2.4) mg/dL 06/11/20 06/11/20 06/11/20 Range/Units 00:01 00:18 05:53 WBC (4.0-11.0) K/uL RBC (4.50-5.90) M/uL Hgb (13.0-17.0) g/dL Hct (38.0-50.0) % MCV (80.0-98.0) fL MCH (27.0-32.0) pg MCHC (31.0-37.0) g/dL RDW Std Deviation (28.0-62.0) fl RDW Coeff of Charles (11.0-15.0) % Plt Count (150-400) K/uL MPV (7.40-12.00) fL Neut % (Auto) (48.0-80.0) % Lymph % (Auto) (16.0-40.0) % Trigg % (Auto) (0.0-15.0) % Eos % (Auto) (0.0-7.0) % Baso % (Auto) (0.0-1.5) % Neut # (Auto) (1.4-5.7) K/uL Lymph # (Auto) (0.6-2.4) K/uL Trigg # (Auto) (0.0-0.8) K/uL Eos # (Auto) (0.0-0.7) K/uL Baso # (Auto) (0.0-0.1) K/uL Sodium 141 (136-148) mmol/L Potassium 3.2 L (3.5-5.1) mmol/L Chloride 107 (98-107) mmol/L Carbon Dioxide 22.5 (21.0-32.0) mmol/L BUN 7 (7.0-18.0) mg/dL Creatinine 1.2 (0.8-1.3) mg/dL Est Cr Clr Drug Dosing TNP Estimated GFR (MDRD) > 60.0 ml/min Glucose 263 H (74-106) mg/dL POC Glucose 216 H 429 H (60-110) mg/dL Calcium 8.3 L (8.5-10.1) mg/dL Phosphorus (2.6-4.7) mg/dL Magnesium (1.8-2.4) mg/dL 06/11/20 06/11/20 06/11/20 Range/Units 06:20 06:20 06:20 WBC 9.61 (4.0-11.0) K/uL RBC 4.08 L (4.50-5.90) M/uL Hgb 13.0 (13.0-17.0) g/dL Hct 37.0 L (38.0-50.0) % MCV 90.7 (80.0-98.0) fL MCH 31.9 (27.0-32.0) pg MCHC 35.1 (31.0-37.0) g/dL RDW Std Deviation 41.5 (28.0-62.0) fl RDW Coeff of Charles 13 (11.0-15.0) % Plt Count 167 (150-400) K/uL MPV 9.80 (7.40-12.00) fL Neut % (Auto) 82.9 H (48.0-80.0) % Lymph % (Auto) 8.8 L (16.0-40.0) % Trigg % (Auto) 8.1 (0.0-15.0) % Eos % (Auto) 0.0 (0.0-7.0) % Baso % (Auto) 0.2 (0.0-1.5) % Neut # (Auto) 8.0 H (1.4-5.7) K/uL Lymph # (Auto) 0.9 (0.6-2.4) K/uL Trigg # (Auto) 0.8 (0.0-0.8) K/uL Eos # (Auto) 0.0 (0.0-0.7) K/uL Baso # (Auto) 0.0 (0.0-0.1) K/uL Sodium 136 (136-148) mmol/L Potassium 4.3 (3.5-5.1) mmol/L Chloride 101 (98-107) mmol/L Carbon Dioxide 19.0 L (21.0-32.0) mmol/L BUN 9 (7.0-18.0) mg/dL Creatinine 1.3 (0.8-1.3) mg/dL Est Cr Clr Drug Dosing 64.59 Estimated GFR (MDRD) 57.3 ml/min Glucose 511 H* (74-106) mg/dL POC Glucose (60-110) mg/dL Calcium 8.0 L (8.5-10.1) mg/dL Phosphorus 2.3 L (2.6-4.7) mg/dL Magnesium 1.7 L (1.8-2.4) mg/dL Result Diagrams: 06/11/20 06:20 06/11/20 06:20 Sepsis Event Note - Evaluation Sepsis Screening Result: Sepsis Risk - Focused Exam Vital Signs: Vital Signs Temp Pulse Resp BP BP Pulse Ox 06/11/20 07:00 14 136/73 93 L 06/11/20 06:00 13 142/77 H 96 06/11/20 05:00 17 149/79 H 95 06/11/20 04:00 36.9 C 15 154/90 H 95 06/11/20 03:00 12 146/83 H 95 06/11/20 02:00 20 145/83 H 94 L 06/11/20 01:00 21 H 138/84 95 06/11/20 00:00 37.0 C 20 137/75 95 06/10/20 23:00 13 160/80 H 95 06/10/20 22:00 19 137/81 96 06/10/20 21:07 98 128/84 06/10/20 21:00 16 140/83 97 06/10/20 20:00 36.8 C 17 152/83 H 95 - Problem List Review Problem List Initiated/Reviewed/Updated: Yes - My Orders Last 24 Hours: My Active Orders 06/10/20 11:45 Metoprolol Tartrate [Lopressor] 25 mg PO BID 06/11/20 07:15 Magnesium Sulfate/Water [Magnesium Sulfate in Water 2 GM/50 ML] 2 gm in 50 ml IV ONETIME 06/11/20 07:45 Insulin Regular, Human [NovoLIN R] 100 unit Sodium Chloride 0.9% [Normal Saline] 99 ml IV TITRATE 06/11/20 07:47 Communication Order [RC] ROUTINE 06/11/20 Lunch Advance Diet Instructions [DIET] 06/12/20 05:11 CBC WITH AUTO DIFF [HEME] AM - Plan Plan:: 54 yo male admitted for diabetic ketoacidosis. DKA: continue insulin drip, will transition to subqu insulin this afternoon after resuming Lantus if patient's nausea has improved. Coffee ground emesis: on protonix, hold plavix, Hgb stable at 14.9 HX of CAD: resume metoprolol
[2020-06-11] MEDS: Metoprolol Tartrate 25 MG Tab PO SCH ×2 (09:18→21:07)
[2020-06-11] MEDS: Ondansetron 4 MG/2 ML SDV IVPUSH PRN (20:31)
[2020-06-11] MEDS ORDERED: Insulin Glargine,Human Rec. Analog 100 Units/ML 3 ML Pen SUBCUT SCH (21:00)
[2020-06-11] MEDS: guaiFENesin 100 MG/5 ML Soln 5 ML UD Cup PO PRN (23:51)
[2020-06-12] MEDS: Pantoprazole 40 MG in Sodium Chloride 0.9% 10 ML IV SCH (03:41)
[2020-06-12] MEDS: guaiFENesin 100 MG/5 ML Soln 5 ML UD Cup PO PRN (06:03)
[2020-06-12 06:46] LABS: BLOOD UREA NITROGEN,BUN 4 mg/dL (7.0-18.0); CARBON DIOXIDE,CO2 25.6 mmol/L (21.0-32.0); CHLORIDE,CL 106 mmol/L (98-107); GLUCOSE RANDOM 117 mg/dL (74-106); POTASSIUM,K 2.9 mmol/L (3.5-5.1); SODIUM,NA 141 mmol/L (136-148)
[2020-06-12] MEDS: Sodium Chloride 0.9% 1,000 ML IV SCH (06:57)
[2020-06-12] MEDS: Insulin Aspart 100 Units/ML 3 ML Pen SUBCUT SCH ×2 (07:43→12:20)
[2020-06-12] MEDS ORDERED: Potassium Chloride 20 MEQ Tab.ER PO ONE (07:57)
[2020-06-12] MEDS: Metoprolol Tartrate 25 MG Tab PO SCH (08:05)
[2020-06-12 08:06] VITALS: PULSE 100
[2020-06-12] MEDS: Sodium Chloride 0.9% with KCl 1,000 ML IV ONE ×2 (08:23→08:32)
[2020-06-12] MEDS ORDERED: Phenol 1.4% Oral Spray 177 ML Bottle MUCMEM PRN (09:40)
[2020-06-12 12:55] VITALS: BP 157/83
--- NOTE | 2020-06-12 15:18 | PCM.DCSUM1 ---
Discharge Summary - Hospital Course Brief History: 54 yo PMH of cardiomyopathy with ICD, systolic HF, s/p CABG, DM type 1, HTN, gastroparesis who presents with nausea, vomiting, and coffee ground emesis. Patient denies any fever, shortness of breath, chest pain, or blood in stool, or dark stool. In the ED he was noted to be acidotic with elevated blood glucose. He was given one liter of fluids and 10 units of insulin x2. Diagnosis: Stroke: No - Discharge Data Discharge Date: 06/12/20 Discharge Disposition: Home, Self-Care 01 Condition: Good - Referral to Home Health Primary Care Physician: PCP None - Patient Summary/Data Hospital Course: Admission diagnoses DKA Upper GI bleed Discharge diagnoses DKA resolved Upper GI bleed resolved Other PMH ICD/pacemaker Systolic heart failure CAD HTN DM type I Gastroparesis Shirley was admitted secondary to nausea vomiting and coffee-ground emesis noted at home. Upon arrival to the ER he was noted to be acidotic with elevated blood glucose. He was started on insulin drip and given aggressive IV fluid resuscitation. Initial stool sample provided by rectal exam showed no stool in the rectal vault. 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 Hemoglobin did decrease but he was given IV fluids and had no further emesis or black or bloody bowel movements. His home medications of aspirin Plavix and Eliquis were held. He was slowly weaned off of insulin drip and has been tolerating clear liquid to full liquid diet. He was restarted on subcutaneous insulin and maintaining blood sugars well. Today he had yellow soft stool which was tested and returned negative for Hemoccult. Hemoglobin has remained stable and he will be discharged home today. We are going to continue Protonix 40 mg twice daily along with Carafate with each meal and at bedtime. I will send referral for endoscopy with general surgery. I did discuss medications with Dr. Guthrie in regards to Plavix and anticoagulation. We will stop Plavix at this time and continue aspirin and Eliquis. He is to refrain from eating and drinking any high acidic foods or spicy foods. And advised not to take any further NSAIDs such as Aleve ibuprofen or Motrin. He is to return to the ER or clinic if concerns should arise sooner. - Patient Instructions Diet: Heart Healthy Diet, Diabetic Diet, GI Soft/Low Residue/Low Fiber Activity: As Tolerated, No Strenuous Activities Showering/Bathing: May Shower Notify Provider of: Fever, Increased Pain, Swelling and Redness, Drainage, Nausea and/or Vomiting Other/Special Instructions: STOP taking Plavix. No high acidic foods, spicy foods. Do Not take any NSAIDS (Aleve, Advil, Ibuprofen, or Motrin) - Discharge Plan *PRESCRIPTION DRUG MONITORING PROGRAM REVIEWED*: Not Applicable *COPY OF PRESCRIPTION DRUG MONITORING REPORT IN PATIENT CEZAR: Not Applicable Prescriptions/Med Rec: Sucralfate [Carafate] 1 gm PO QIDACANDBED #120 tab Potassium Chloride 20 meq PO DAILY #3 tablet.er Pantoprazole Sodium [Protonix] 40 mg PO BID #60 tab Home Medications: Home Meds Insulin Aspart [NovoLOG] See Protocol SUBCUT TIDMEALS #0 12/25/16 [Rx] Metoprolol Tartrate 25 mg PO BID 01/05/19 [History] Topiramate 25 mg PO BID 01/05/19 [History] atorvaSTATin [Lipitor] 10 mg PO DAILY 01/05/19 [History] DULoxetine [Cymbalta] 30 mg PO DAILY 11/02/19 [History] Aspirin 81 mg PO DAILY 11/27/19 [History] Losartan [Cozaar] 25 mg PO DAILY 04/24/20 [History] Apixaban [Eliquis] 5 mg PO Q12H 04/25/20 [History] Insulin Glarg,Human.Rec.Analog [Lantus] 25 units SQ BEDTIME 06/11/20 [History] Pantoprazole Sodium [Protonix] 40 mg PO BID #60 tab 06/12/20 [Rx] Potassium Chloride 20 meq PO DAILY #3 tablet.er 06/12/20 [Rx] Sucralfate [Carafate] 1 gm PO QIDACANDBED #120 tab 06/12/20 [Rx] Oxygen Therapy Mode: Room Air Patient Handouts: Potassium Chloride Extended-Release Capsules, Peptic Ulcer, Gastritis, Adult, Sucralfate tablets, Pantoprazole tablets Referrals: Elder Diez MD [Ordering Only Provider] - 06/20/20 3:00 pm - Discharge Summary/Plan Comment DC Time >30 min.: No - Patient Data Vitals - Most Recent: Last Vital Signs Temp 97.7 F 06/12/20 12:00 Pulse 100 06/12/20 08:05 Resp 19 06/12/20 12:00 BP 157/83 H 06/12/20 12:00 Pulse Ox 95 06/12/20 12:00 Weight - Most Recent: 82.282 kg I&O - Last 24 hours: Intake & Output 06/12/20 06/12/20 06/12/20 06:59 14:59 22:59 Intake Total 2320 Output Total 650 Balance 1670 Lab Results - Last 24 hrs: Laboratory Results - last 24 hr 06/11/20 06/11/20 06/11/20 Range/Units 16:03 17:01 18:01 WBC (4.0-11.0) K/uL RBC (4.50-5.90) M/uL Hgb (13.0-17.0) g/dL Hct (38.0-50.0) % MCV (80.0-98.0) fL MCH (27.0-32.0) pg MCHC (31.0-37.0) g/dL RDW Std Deviation (28.0-62.0) fl RDW Coeff of Charles (11.0-15.0) % Plt Count (150-400) K/uL MPV (7.40-12.00) fL Neut % (Auto) (48.0-80.0) % Lymph % (Auto) (16.0-40.0) % [place] % (Auto) (0.0-15.0) % Eos % (Auto) (0.0-7.0) % Baso % (Auto) (0.0-1.5) % Neut # (Auto) (1.4-5.7) K/uL Lymph # (Auto) (0.6-2.4) K/uL [place] # (Auto) (0.0-0.8) K/uL Eos # (Auto) (0.0-0.7) K/uL Baso # (Auto) (0.0-0.1) K/uL Sodium (136-148) mmol/L Potassium (3.5-5.1) mmol/L Chloride (98-107) mmol/L Carbon Dioxide (21.0-32.0) mmol/L BUN (7.0-18.0) mg/dL Creatinine (0.8-1.3) mg/dL Est Cr Clr Drug Dosing mL/min Estimated GFR (MDRD) ml/min Glucose (74-106) mg/dL POC Glucose 154 H 150 H 147 H (60-110) mg/dL Calcium (8.5-10.1) mg/dL Magnesium (1.8-2.4) mg/dL 06/11/20 06/11/20 06/11/20 Range/Units 19:20 20:04 21:06 WBC (4.0-11.0) K/uL RBC (4.50-5.90) M/uL Hgb (13.0-17.0) g/dL Hct (38.0-50.0) % MCV (80.0-98.0) fL MCH (27.0-32.0) pg MCHC (31.0-37.0) g/dL RDW Std Deviation (28.0-62.0) fl RDW Coeff of Charles (11.0-15.0) % Plt Count (150-400) K/uL MPV (7.40-12.00) fL Neut % (Auto) (48.0-80.0) % Lymph % (Auto) (16.0-40.0) % [place] % (Auto) (0.0-15.0) % Eos % (Auto) (0.0-7.0) % Baso % (Auto) (0.0-1.5) % Neut # (Auto) (1.4-5.7) K/uL Lymph # (Auto) (0.6-2.4) K/uL [place] # (Auto) (0.0-0.8) K/uL Eos # (Auto) (0.0-0.7) K/uL Baso # (Auto) (0.0-0.1) K/uL Sodium (136-148) mmol/L Potassium (3.5-5.1) mmol/L Chloride (98-107) mmol/L Carbon Dioxide (21.0-32.0) mmol/L BUN (7.0-18.0) mg/dL Creatinine (0.8-1.3) mg/dL Est Cr Clr Drug Dosing mL/min Estimated GFR (MDRD) ml/min Glucose (74-106) mg/dL POC Glucose 160 H 203 H 190 H (60-110) mg/dL Calcium (8.5-10.1) mg/dL Magnesium (1.8-2.4) mg/dL 06/11/20 06/11/20 06/12/20 Range/Units 21:56 23:02 01:01 WBC (4.0-11.0) K/uL RBC (4.50-5.90) M/uL Hgb (13.0-17.0) g/dL Hct (38.0-50.0) % MCV (80.0-98.0) fL MCH (27.0-32.0) pg MCHC (31.0-37.0) g/dL RDW Std Deviation (28.0-62.0) fl RDW Coeff of Charles (11.0-15.0) % Plt Count (150-400) K/uL MPV (7.40-12.00) fL Neut % (Auto) (48.0-80.0) % Lymph % (Auto) (16.0-40.0) % [place] % (Auto) (0.0-15.0) % Eos % (Auto) (0.0-7.0) % Baso % (Auto) (0.0-1.5) % Neut # (Auto) (1.4-5.7) K/uL Lymph # (Auto) (0.6-2.4) K/uL [place] # (Auto) (0.0-0.8) K/uL Eos # (Auto) (0.0-0.7) K/uL Baso # (Auto) (0.0-0.1) K/uL Sodium (136-148) mmol/L Potassium (3.5-5.1) mmol/L Chloride (98-107) mmol/L Carbon Dioxide (21.0-32.0) mmol/L BUN (7.0-18.0) mg/dL Creatinine (0.8-1.3) mg/dL Est Cr Clr Drug Dosing mL/min Estimated GFR (MDRD) ml/min Glucose (74-106) mg/dL POC Glucose 170 H 140 H 132 H (60-110) mg/dL Calcium (8.5-10.1) mg/dL Magnesium (1.8-2.4) mg/dL 06/12/20 06/12/20 06/12/20 Range/Units 06:10 06:10 06:10 WBC 5.23 (4.0-11.0) K/uL RBC 3.93 L (4.50-5.90) M/uL Hgb 12.4 L (13.0-17.0) g/dL Hct 35.2 L (38.0-50.0) % MCV 89.6 (80.0-98.0) fL MCH 31.6 (27.0-32.0) pg MCHC 35.2 (31.0-37.0) g/dL RDW Std Deviation 38.7 (28.0-62.0) fl RDW Coeff of Charles 12 (11.0-15.0) % Plt Count 154 (150-400) K/uL MPV 9.50 (7.40-12.00) fL Neut % (Auto) 65.0 (48.0-80.0) % Lymph % (Auto) 25.0 (16.0-40.0) % [place] % (Auto) 9.4 (0.0-15.0) % Eos % (Auto) 0.2 (0.0-7.0) % Baso % (Auto) 0.4 (0.0-1.5) % Neut # (Auto) 3.4 (1.4-5.7) K/uL Lymph # (Auto) 1.3 (0.6-2.4) K/uL [place] # (Auto) 0.5 (0.0-0.8) K/uL Eos # (Auto) 0.0 (0.0-0.7) K/uL Baso # (Auto) 0.0 (0.0-0.1) K/uL Sodium 141 (136-148) mmol/L Potassium 2.9 L (3.5-5.1) mmol/L Chloride 106 (98-107) mmol/L Carbon Dioxide 25.6 (21.0-32.0) mmol/L BUN 4 L (7.0-18.0) mg/dL Creatinine 1.0 (0.8-1.3) mg/dL Est Cr Clr Drug Dosing 97.04 mL/min Estimated GFR (MDRD) > 60.0 ml/min Glucose 117 H (74-106) mg/dL POC Glucose (60-110) mg/dL Calcium 7.7 L (8.5-10.1) mg/dL Magnesium 1.9 (1.8-2.4) mg/dL 06/12/20 06/12/20 06/12/20 Range/Units 06:52 11:34 14:17 WBC (4.0-11.0) K/uL RBC (4.50-5.90) M/uL Hgb (13.0-17.0) g/dL Hct (38.0-50.0) % MCV (80.0-98.0) fL MCH (27.0-32.0) pg MCHC (31.0-37.0) g/dL RDW Std Deviation (28.0-62.0) fl RDW Coeff of Charles (11.0-15.0) % Plt Count (150-400) K/uL MPV (7.40-12.00) fL Neut % (Auto) (48.0-80.0) % Lymph % (Auto) (16.0-40.0) % [place] % (Auto) (0.0-15.0) % Eos % (Auto) (0.0-7.0) % Baso % (Auto) (0.0-1.5) % Neut # (Auto) (1.4-5.7) K/uL Lymph # (Auto) (0.6-2.4) K/uL [place] # (Auto) (0.0-0.8) K/uL Eos # (Auto) (0.0-0.7) K/uL Baso # (Auto) (0.0-0.1) K/uL Sodium (136-148) mmol/L Potassium 3.7 (3.5-5.1) mmol/L Chloride (98-107) mmol/L Carbon Dioxide (21.0-32.0) mmol/L BUN (7.0-18.0) mg/dL Creatinine (0.8-1.3) mg/dL Est Cr Clr Drug Dosing mL/min Estimated GFR (MDRD) ml/min Glucose (74-106) mg/dL POC Glucose 125 H 372 H (60-110) mg/dL Calcium (8.5-10.1) mg/dL Magnesium (1.8-2.4) mg/dL SUSAN Results - Last 24 hrs: Microbiology 06/09/20 09:25 Stool Occult Blood (SUSAN) - Final Stool / Feces Med Orders - Current: Current Medications Dextrose/Water (50% Dextrose In Water 50 Ml Syringe) 50 ml IV ASDIRECTED PRN PRN Reason: Hypoglycemia Glucagon (Glucagon,Human Recombinant 1 Mg Vial) 1 mg IM ASDIRECTED PRN PRN Reason: Hypoglycemia Guaifenesin (Guaifenesin 100 Mg/5 Ml Soln 5 Ml Ud Cup) 100 mg PO Q6H PRN PRN Reason: Cough Last Admin: 06/12/20 06:03 Dose: 100 mg Documented by: Sodium Chloride (Normal Saline) 1,000 mls @ 999 mls/hr IV ASDIRECTED [facility] Last Admin: 06/09/20 17:12 Dose: 999 mls/hr Documented by: Pantoprazole Sodium 40 mg/ (Sodium Chloride) 10 mls @ 300 mls/hr IV Q12H [facility] Last Admin: 06/12/20 03:41 Dose: 300 mls/hr Documented by: Sodium Chloride (Normal Saline) 1,000 mls @ 125 mls/hr IV ASDIRECTED [facility] Last Infusion: 06/12/20 08:25 Dose: 0 mls/hr Documented by: Insulin Aspart (Insulin Aspart 100 Units/Ml 3 Ml Pen) 0 unit SUBCUT TIDAC [facility]; Protocol Last Admin: 06/12/20 12:20 Dose: 5 units Documented by: Insulin Glargine (Insulin Glargine,Human Rec. Analog 100 Units/Ml 3 Ml Pen) 25 units SUBCUT BEDTIME [facility] Last Admin: 06/11/20 21:08 Dose: 25 units Documented by: Metoclopramide HCl (Metoclopramide 10 Mg/2 Ml Sdv) 5 mg IVPUSH Q6H PRN PRN Reason: Nausea Last Admin: 06/11/20 01:50 Dose: 5 mg Documented by: Metoprolol Tartrate (Metoprolol Tartrate 25 Mg Tab) 25 mg PO BID [facility] Last Admin: 06/12/20 08:05 Dose: 25 mg Documented by: Ondansetron HCl (Ondansetron 4 Mg/2 Ml Sdv) 4 mg IVPUSH Q4H PRN PRN Reason: Nausea/Vomiting Last Admin: 06/11/20 20:31 Dose: 4 mg Documented by: Phenol/Menthol (Phenol 1.4% Oral [place] 177 Ml Bottle) 0 ml MUCMEM Q2H PRN PRN Reason: Sore Throat Last Admin: 06/12/20 11:45 Dose: 2 spray Documented by: Sodium Chloride (Sodium Chloride 0.9% 10 Ml Syringe) 10 ml FLUSH ASDIRECTED PRN PRN Reason: Keep Vein Open Last Admin: 06/09/20 20:13 Dose: 10 ml Documented by: Sodium Chloride (Sodium Chloride 0.9% 2.5 Ml Syringe) 2.5 ml FLUSH ASDIRECTED PRN PRN Reason: Keep Vein Open Discontinued Medications Dextrose/Water (50% Dextrose In Water 50 Ml Syringe) 50 ml IV ASDIRECTED PRN PRN Reason: Hypoglycemia Dextrose/Water (50% Dextrose In Water 50 Ml Syringe) 50 ml IV ASDIRECTED PRN PRN Reason: Hypoglycemia Glucagon (Glucagon,Human Recombinant 1 Mg Vial) 1 mg IM ASDIRECTED PRN PRN Reason: Hypoglycemia Glucagon (Glucagon,Human Recombinant 1 Mg Vial) 1 mg IM ASDIRECTED PRN PRN Reason: Hypoglycemia Pantoprazole Sodium 40 mg/ (Sodium Chloride) 10 mls @ 300 mls/hr IV NOW ONE Stop: 06/09/20 15:43 Last Admin: 06/09/20 16:17 Dose: 300 mls/hr Documented by: Sodium Chloride (Normal Saline) 1,000 mls @ 1,000 mls/hr IV .Bolus ONE Stop: 06/09/20 16:43 Last Admin: 06/09/20 16:17 Dose: 1,000 mls/hr Documented by: Lactated Ringer's (Ringers, Lactated) 1,000 mls @ 150 mls/hr IV ASDIRECTED [facility] Last Infusion: 06/09/20 20:15 Dose: 0 mls/hr Documented by: Insulin Human Regular 100 unit (/ Sodium Chloride) 100 mls @ 7 mls/hr IV TITRATE [facility]; Protocol Lactated Ringer's (Ringers, Lactated) 1,000 mls @ 999 mls/hr IV ONETIME ONE Stop: 06/09/20 21:00 Last Admin: 06/09/20 20:00 Dose: 999 mls/hr Documented by: Lactated Ringer's (Ringers, Lactated) 1,000 mls @ 200 mls/hr IV ASDIRECTED [facility] Last Infusion: 06/10/20 00:09 Dose: 0 mls/hr Documented by: Insulin Regular in 0.9 % NACL (Myxredlin In Ns 100 Unit/100 Ml) 100 mls @ 7 mls/hr IV TITRATE [facility]; Protocol Last Titration: 06/10/20 23:34 Dose: 0 unit/hr, 0 mls/hr Documented by: Dextrose/Sodium Chloride (Dextrose 5%-1/2 Ns) 1,000 mls @ 150 mls/hr IV ASDIRECTED [facility] Last Infusion: 06/10/20 23:21 Dose: 0 mls/hr Documented by: Potassium Chloride 40 meq/ (Premix) 100 mls @ 25 mls/hr IV ONETIME ONE Stop: 06/11/20 05:29 Last Admin: 06/11/20 01:45 Dose: 25 mls/hr Documented by: Magnesium Sulfate (Magnesium Sulfate In Water 2 Gm/50 Ml) 2 gm in 50 mls @ 50 mls/hr IV ONETIME ONE Stop: 06/11/20 08:14 Last Admin: 06/11/20 07:45 Dose: 50 mls/hr Documented by: Insulin Human Regular 100 unit (/ Sodium Chloride) 100 mls @ 7 mls/hr IV TITRATE [facility]; Protocol Last Titration: 06/11/20 23:05 Dose: 0 unit/hr, 0 mls/hr Documented by: Potassium Chloride/Sodium Chloride (Normal Saline With 40 Meq Kcl) 1,000 mls @ 150 mls/hr IV ONETIME ONE Stop: 06/12/20 14:37 Last Admin: 06/12/20 08:32 Dose: 150 mls/hr Documented by: Insulin Aspart (Insulin Aspart 100 Units/Ml 3 Ml Pen) 0 unit SUBCUT Q6H [facility]; Protocol Last Admin: 06/11/20 06:17 Dose: Not Given Documented by: Insulin Human Isoph/Insulin Regular (Insulin Nph/Insulin Regular,Human 70-30 100 Units/Ml 10 Ml Vial) 10 unit SUBCUT ONETIME ONE Stop: 06/09/20 15:46 Last Admin: 06/09/20 16:09 Dose: Not Given Documented by: Insulin Human Regular (Insulin Regular, Human 100 Units/Ml 10 Ml Vial) 10 unit IVPUSH ONETIME ONE; Protocol Stop: 06/09/20 16:10 Last Admin: 06/09/20 16:15 Dose: 10 unit Documented by: Insulin Human Regular (Insulin Regular, Human 100 Units/Ml 10 Ml Vial) 10 unit IVPUSH ONETIME ONE; Protocol Stop: 06/09/20 17:07 Last Admin: 06/09/20 17:15 Dose: 10 unit Documented by: Insulin Human Regular (Insulin Regular, Human 100 Units/Ml 10 Ml Vial) 10 unit IVPUSH ONETIME ONE; Protocol Stop: 06/09/20 17:09 Last Admin: 06/09/20 17:17 Dose: Not Given Documented by: Ondansetron HCl (Ondansetron 4 Mg/2 Ml Sdv) 4 mg IVPUSH ONETIME ONE Stop: 06/09/20 15:43 Last Admin: 06/09/20 16:17 Dose: 4 mg Documented by: Ondansetron HCl (Ondansetron 4 Mg/2 Ml Sdv) Confirm Administered Dose 4 mg .ROUTE .STK-MED ONE Stop: 06/09/20 20:14 Last Admin: 06/09/20 20:16 Dose: Not Given Documented by: Potassium Chloride (Potassium Chloride 20 Meq Tab.Er) 40 meq PO ONETIME ONE Stop: 06/12/20 07:58 Last Admin: 06/12/20 08:23 Dose: 40 meq Documented by: Sodium Phosphate (Phosphorus #1 250 Mg Tab) 250 mg PO ONETIME ONE Stop: 06/11/20 07:08 Last Admin: 06/11/20 09:19 Dose: 250 mg Documented by: - Exam Quality Assessment: Reports: DVT Prophylaxis. Denies: Supplemental Oxygen General: Reports: Alert, Oriented, Cooperative, No Acute Distress Lungs: Reports: Clear to Auscultation, Normal Respiratory Effort Cardiovascular: Reports: Regular Rate, Regular Rhythm GI/Abdominal Exam: Normal Bowel Sounds, Soft, Non-Tender Back Exam: Reports: Normal Inspection, Full Range of Motion Wound/Incisions: Reports: Healing Well, Dressing Dry and Intact (R index finger, abrasion, c/d/i no S/S of infection. Encouraged to keep clean and with dressing as needed for serous drainage. ) Neurological: Reports: No New Focal Deficit Psy/Mental Status: Reports: Alert, Normal Affect, Normal Mood
== END 2020-06-12 15:30 | disposition home or self-care (01) | DRG 638 ==
LOC: MW.ED 15:35 → MW.ICU 19:12
PROVIDERS: ADMIT Internal Medicine; ATTEND Internal Medicine
DX: E10.10 Type 1 diabetes mellitus with ketoacidosis without coma (principal); K92.2 Gastrointestinal hemorrhage, unspecified; I50.22 Chronic systolic (congestive) heart failure; I50.9 Heart failure, unspecified; E78.00 Pure hypercholesterolemia, unspecified; I13.0 Hypertensive heart and chronic kidney disease with heart failure and stage 1 through stage 4 chronic kidney disease, or unspecified chronic kidney disease; Z79.4 Long term (current) use of insulin; Z95.0 Presence of cardiac pacemaker; I25.10 Atherosclerotic heart disease of native coronary artery without angina pectoris; E10.43 Type 1 diabetes mellitus with diabetic autonomic (poly)neuropathy; G89.29 Other chronic pain; M54.9 Dorsalgia, unspecified; E10.40 Type 1 diabetes mellitus with diabetic neuropathy, unspecified; K31.84 Gastroparesis; Z95.1 Presence of aortocoronary bypass graft; Z79.01 Long term (current) use of anticoagulants; Z79.02 Long term (current) use of antithrombotics/antiplatelets; Z79.82 Long term (current) use of aspirin; I25.2 Old myocardial infarction; Z79.899 Other long term (current) drug therapy; E78.5 Hyperlipidemia, unspecified; N18.9 Chronic kidney disease, unspecified; E10.22 Type 1 diabetes mellitus with diabetic chronic kidney disease; F41.9 Anxiety disorder, unspecified; F32.9 Major depressive disorder, single episode, unspecified; Z95.5 Presence of coronary angioplasty implant and graft; Z90.49 Acquired absence of other specified parts of digestive tract; Z20.822 Contact with and (suspected) exposure to COVID-19
CPT/HCPCS: 36415; 36600; 71045; 80053; 81001; 82009; 82272; 82803; 82962 ×2; 83605; 83690; 84484; 85025; 85610; 85730; 86850; 86900; 86901; 93005; C9113; J1815 ×2; J2405; J7030 ×2; J7120; U0002; 36410; 74176; 74176-26; 80048; 83735; 84100; 84132; 93010; 99284; A9270-GY; J2765; J3475; J3480; J7042